=== PATIENT | female | born 1975 | race Caucasian/White ===

== ENCOUNTER 2019-05-21 12:26 | Outpatient (CLI) | payer MEDICARE, MEDICAID, SELFPAY ==
--- NOTE | 2019-05-21 12:41 | XR_ITS ---
WS: [id number] XR abdomen min 2V [id number] REASON FOR EXAM: VISUALIZE PD CATHETER FROM EXIT SITE/LLQ TO PELIVS/ESRD FINDINGS: A catheter is seen extending through the left kidney down through the ureter into the bladd er. There is nonspecific gas and fecal stasis in the colon. The bladder area shows phleboliths but no definite stones. XR/XR abdomen min 2V [id number] IMPRESSION: Catheter extends external through the kidney down to the bladder through the ur eter in good position.
== END 2019-05-21 12:27 | disposition home or self-care (01) ==
LOC: RAD 12:30
PROVIDERS: Family Provider Nurse Practitioner; PCP Family Medicine; Visit Provider Internal Medicine Nephrology
DX: Z99.2 Dependence on renal dialysis (principal); N18.6 End stage renal disease
CPT/HCPCS: 74019

== ENCOUNTER 2019-05-22 10:59 | Outpatient (CLI) | payer MEDICARE, MEDICAID, SELFPAY ==
--- NOTE | 2019-05-22 11:15 | XR_ITS ---
WS: [id number] XR KUB [id number] REASON FOR EXAM: VISUALIZE ABDOMEN TO PELVIS FOR PD CATHETER OBSTRUCTION/ESRD FINDINGS: PD catheter is seen extending from the left side the tubing is in the left kidney extends d own to the bladder area. XR/XR KUB 60095 IMPRESSION: PD catheter well placed.
== END 2019-05-22 11:00 | disposition home or self-care (01) ==
LOC: RAD 11:02
PROVIDERS: Family Provider Nurse Practitioner; PCP Family Medicine; Visit Provider Internal Medicine Nephrology
DX: T85.691A Other mechanical complication of intraperitoneal dialysis catheter, initial encounter (principal); Y83.8 Other surgical procedures as the cause of abnormal reaction of the patient, or of later complication, without mention of misadventure at the time of the procedure; N18.6 End stage renal disease; Z99.2 Dependence on renal dialysis
CPT/HCPCS: 74018

== ENCOUNTER 2019-08-24 14:16 | Outpatient (CLI) | payer MEDICARE, MEDICAID, SELFPAY ==
--- NOTE | 2019-08-24 14:33 | XR_ITS ---
WS: [id number] XR abdomen min 2V [id number] REASON FOR EXAM: CATH OBSTRUCTION SUBSEQUENT/ESRD/DEPENDENCE ON RENAL DIALYSI FINDINGS: KUB of the abdomen shows a renal dialysis catheter on the left side the alignment is satisf actory there is no dysfunction identified on the plain films. There is fecal stasis seen. There is no obstructive changes or free air. XR/XR abdomen min 2V [id number] IMPRESSION: Dialysis catheter on the left satisfactory position.
== END 2019-08-24 14:17 | disposition home or self-care (01) ==
LOC: RAD 14:19
PROVIDERS: Family Provider Nurse Practitioner; PCP Family Medicine; Visit Provider Internal Medicine Nephrology
DX: T85.691D Other mechanical complication of intraperitoneal dialysis catheter, subsequent encounter (principal); X58.XXXA Exposure to other specified factors, initial encounter
CPT/HCPCS: 74019

== ENCOUNTER → 2019-12-10 10:02 | Outpatient (BNVA) | payer MEDICARE, MEDICAID, SELFPAY | PROVIDERS: Family Provider Nurse Practitioner; PCP Family Medicine; Visit Provider Surgery | DX: Z20.828 Contact with and (suspected) exposure to other viral communicable diseases (principal) | CPT/HCPCS: 87635 ==

== ENCOUNTER 2019-12-13 07:15 | Day surgery (SDC) | payer MEDICARE, MEDICAID, SELFPAY ==
[2019-12-11 09:03] VITALS: BMI 21.8
[2019-12-13 07:38] VITALS: BP 123/86; PULSE 96; RESP 18; TEMP 36.2; O2SAT 100
--- NOTE | 2019-12-13 07:42 | ANES.PREANE2 ---
Pre-Anesthetic Assessment Pre-Anesthetic Assessment: Height/Weight: Height 1.75 m Weight 67.132 kg Temp Pulse Resp BP Pulse Ox 97.1 F L 96 18 123/86 100 12/13/19 07:38 12/13/19 07:38 12/13/19 07:38 12/13/19 07:38 12/13/19 07:38 Proposed Procedure: Operation Date: 12/13/19 08:00 Proposed Procedures p Colonoscopy(Not Applicable) - Fred Escoto MD Last Intake: 00:00 Social: Social History: Tobacco Packs per day: 5 cig/day Exam: Pre-Anes Outpt Exam: alert, oriented x 3, clear to auscultation bilaterally and regular rate & rhythm Airway: Submandibular: WNL Cervical ROM: WNL MP: 2 Dentition: False Additional comments: upper plate History/ROS: No significant history except as noted and No significant complaints Pulmonary: Pulmonary: None reported CV/HEM: CV/HEM: Anemia, DVT and HTN : : Chronic renal failure Hepatic: Hepatic: None reported GI: GI: None reported Metabolic: Metabolic: DM Musc/skel: Musc/skel: None reported Neuropsych: Neuropsych: Anxiety and Depression Anesthetic Plan: ASA status: 3 Anesthesia: Anesthesia Evaluation and MAC Risk of > 500 ml blood loss (7ml/kg in children): No PFSH Anesthesia PFSH: Medical History Diabetes mellitus End-stage renal disease Surgical History History of hip surgery History of hysterectomy Family History Other Cancer Diabetes Social History Smoking and tobacco status: current every day smoker Alcohol intake: never Household members: other Current occupational status: unemployed Data Anesthesia Cardiac Studies: No Data to Display
[2019-12-13 07:46] LABS: Glucose Point of Care 137 mg/dL (70-110)
[2019-12-13] MEDS: sodium chloride 0.9% 1,000 ML 30 ML IV (07:48)
--- NOTE | 2019-12-13 08:06 | W.PM.OPSUD ---
Surgery/Procedure H&P Update DATE OF PROCEDURE: December 13, 2019 DATE H&P PERFORMED: 11/20/19 H&P UPDATE INFORMATION: Changes to prior documentation as noted here (Nephrology had as to give the patient 1 g of Ancef prior to her procedure, but she gets a rash with cephalosporins. This will be changed to clindamycin.) PLANNED PROCEDURE: Operation Date: 12/13/19 08:00 Proposed Procedures p Colonoscopy(Not Applicable) - Fred Escoto MD
[2019-12-13] MEDS: clindamycin 900 MG/50 ML PREMIX 100 MG IV (08:13)
[2019-12-13 08:49] VITALS: BP 117/74; PULSE 80; RESP 16; TEMP 36.3; O2SAT 97
[2019-12-13 08:59] VITALS: BP 108/72; PULSE 85; RESP 18; TEMP 36.1; O2SAT 97
--- NOTE | 2019-12-13 09:25 | ANE.PACU2 ---
Inpatient post-anesthesia follow up: Airway intact: Yes Vital signs: Temperature 97.0 F Pulse Rate 85 Respiratory Rate 18 Blood Pressure 108/72 Pulse Oximetry 97 Oxygen Delivery Me thod Room Air Oxygen Flow Rate Fraction of Inspir ed Oxygen Hydration adequate: Yes Nausea and vomiting: No Pain level: 1 Mental status: Baseline
== END 2019-12-13 09:30 | disposition home or self-care (01) ==
PROVIDERS: PCP Family Medicine; Visit Provider Surgery
PROC: 0DJD8ZZ Inspection of Lower Intestinal Tract, Via Natural or Artificial Opening Endoscopic (ICD-10-PCS; CPT 45378; principal; 2019-12-13 08:00)
DX: K92.1 Melena (principal); K59.09 Other constipation; K63.5 Polyp of colon; K62.89 Other specified diseases of anus and rectum; F17.210 Nicotine dependence, cigarettes, uncomplicated; Z86.718 Personal history of other venous thrombosis and embolism; F41.9 Anxiety disorder, unspecified; F32.9 Major depressive disorder, single episode, unspecified; E11.9 Type 2 diabetes mellitus without complications; I10 Essential (primary) hypertension; Z79.01 Long term (current) use of anticoagulants; Z79.4 Long term (current) use of insulin
CPT/HCPCS: 12345; 36416; 45385; 82962; 88305; J2704; J3490; J7030

== ENCOUNTER 2020-01-02 08:08 | Outpatient (CLI) | payer MEDICARE, MEDICAID, SELFPAY ==
--- NOTE | 2020-01-02 13:44 | ONC CON_ITS ---
Dr. Damico New Patient Note Patient: Bharati Anthony Unit #: [id number]: 1975 Dicatated By: Cyndy Damico M.D.Date of Visit: Jan 02, 2020 Onc MED New Patient/Consult Referring Physician: Dr. Fred Escoto M.D. History of Present Illness: Ms. Bharati Anthony, is a 44-year-old female with end-stage renal disease on peritoneal dialysis, start noticing blood in her stool around May or June 2019, initially blood was mixed with stool but then recently, noticed large amount of fresh blood per rectum she was referred to Dr. Escoto for evaluation and patient underwent colonoscopy on December 13, 2019 which showed none obstructing, small size, infiltrating, malignant appearing mass adjacent to some more polypoid appearing areas was seen just inside the anal verge. There was stigmata of bleeding from the mass. Multiple biopsies were obtained and final pathology report came back well-differentiated, nonkeratinizing invasive squamous cell carcinoma, p16 positive Patient denies any pelvic pain, denies any jaundice, denies any hemoptysis or hematemesis, patient has history of off-and-on constipation, thought it was due to peritoneal dialysis. Which was started in May 2019 for progressive renal insufficiency. Patient still makes urine. Denies any weight loss, but generalized weakness and and she has history of iron deficiency, which was multifactorial including due to renal failure, as per patient in hemodialysis clinic she used to get IV iron. Patient has history of anal intercourse, but as per patient it was for a brief period. Never been tested for HIV. Smoke about a pack a day since age 14. Denies alcohol use Past Medical History: Ms. Anthony's medical history consists of anemia, anxiety, depression, history of MRSA, hypertension, left lower extremity dvt, renal failure-daily peritoneal dialysis, and type II diabetes. Past Surgical History: Ms. Anthony's surgical/procedural history consists of hysterectomy/bilateral salpingectomy-oophorectomy, peritoneal dialysis catheter placement, portacth placement, tubal ligation, and right hip surgery in 2019. Medications: Acetaminophen 1 - 2 Tablet (of 500 mg) Oral PRN, CeleXA 1 Tablet (of 40 mg) Tablet Oral daily, Colace 1 Capsule (of 100 mg) Oral b.i.d. PRN, Eliquis 1 Tablet (of 2.5 mg) Oral b.i.d., Furosemide 1 Tablet (of 80 mg) Oral daily, HumaLOG 5 Units (of 100 Units/mL) Subcutaneous b.i.d. PRN, Januvia 1 Tablet (of 100 mg) Oral daily, Klor-Con M20 1 (20 meq) Tablet, controlled release Oral daily, Metoprolol Tartrate 1 Tablet (of 100 mg) Oral daily, Ozempic (1 MG/DOSE) 1 mg Subcutaneous q 7 days, Pantoprazole Sodium 1 Tablet (of 40 mg) Tablet, enteric coated Oral b.i.d., RenaPlex-D 1 Tablet Oral daily, Senno 1 - 2 Tablet (of 8.6 mg) Oral daily PRN Allergies: adhesives and Latex. Social History: Ms. Anthony is single. She is a daily smoker who smokes 1.0 pack/day. Family History: There is no documented family history. Review Of Symptoms: Review of Systems is not available for this patient. Vital Signs: Performed on Jan 02, 2020 09:02: 69.00 in, 151.2 lbs, 97.9 F, 100, 18, 129/80 mm(hg), 99 %, 1, and Performed on Jan 02, 2020 09:02: 22.328 kg/m2. Performance Status: 0 - Fully active, able to carry on all predisease activities without restrictions. (ECOG) Physical Examination: ENMT - No mouth sores, no thrush, no jaundice, Respiratory - Lungs are clear to auscultation, Cardiovascular - Regular rate and rhythm of heart, Abdomen - Soft, bowel sounds present, peritoneal dialysis site clear, Extremities - No visible edema. Lab/Imaging: Most recent lab results are not available for this patient. Impression: Well-differentiated, nonkeratinizing invasive squamous cell carcinoma, p16 positive, per colonoscopy done on December 13, 2019 which showed infiltrating, small size, nonobstructive malignant appearing mass adjacent to some more polypoid appearing areas was seen just inside the anal verge. Renal failure, on peritoneal dialysis since May 2019, Chronic smoking History of anemia, multifactorial Diabetes mellitus History of DVT left lower extremity. Hypertension Plan: Discussed with patient regarding her disease status, and treatment options patient has already seen radiation oncology and staging work-up including CT scan of chest abdomen and MRI scan of the pelvis has been ordered by radiation oncology. Because of possible sphincter involvement, patient is not a candidate for surgery so combined chemoradiation is under consideration for newly diagnosed anal cancer. But concern is her renal failure and chemotherapy pharmacokinetics in patient on peritoneal dialysis. As cure is intent in chemoradiation sensitive anal cell carcinoma, dose adjustment can interfere with response rate, at the same time standard dose of chemotherapy can cause life-threatening toxicity. Discussed with patient regarding this dilemma and concerns, patient understand, will discuss her case with Dr. Mann her grocery store courtesy clerk and also requested pharmacist to do research on Xeloda and mitomycin in end-stage renal disease or Xeloda and cisplatin and end-stage renal disease.. Patient will return to clinic Tuesday week with CBC CMP and for further discussion in the meantime she would have staging work-up completed as ordered by radiation oncology. And as patient said she has history of anal intercourse, will consider HIV testing too. Patient was advised to quit smoking and was offered any assistance she may need. Signed By: Cyndy Damico M.D. <<Signature on File>>
--- NOTE | 2020-01-03 13:15 | N.ONRAD NP_ITS ---
Radiation Oncology New Patient Visit Patient: Bharati Anthony MR#: [id number] : 1975> Age: 44> Sex: Female> Dictated by: Dr. Georges Castanon Date of Service: 01/02/2020 Referring Physician(s) : Dr. 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 History of Present Illness: The patient is a 44-year-old female with end-stage renal disease on peritoneal dialysis with a prior history of anal intercourse. She presented with a 6-month history of blood in her stool and she was subsequently referred for colonoscopy. On 12/13/2019 Dr. Escoto performed a digital rectal examination prior to colonoscopy with findings which revealed a semifirm mass felt in the left anterior posterior position. During colonoscopy, there was a 4 mm sessile polyp in the cecum and within the ???rectum??? there was a nonobstructing, small size, infiltrative, malignant appearing mass adjacent to some more polypoid appearing areas was seen just inside the anal verge. There was stigmata of bleeding from the mass. Multiple biopsies were performed.??? Pathology from this revealed a well differentiated nonkeratinizing invasive squamous cell carcinoma, p16 positive from the excisional biopsy of the anal rectal mass. The polyp in the cecum revealed tubular adenoma. In consultation today, digital rectal and pelvic examination revealed a normal rectal tone, a palpable 3 cm firm exophytic but mobile mass in the 2 to 6 o'clock position in the anal canal, approximately 1.5 cm proximal to the anal verge. There was no irregularity noted around the anal verge, or anal margin. Palpable mass-effect on the posterior vaginal wall was appreciated but there was no visualized mucosal irregularity within the vaginal vault. There was no inguinal adenopathy. In consultation today, the patient reports persistent rectal bleeding, no dyspareunia, no abdominal pain, no shortness of breath, no pruritus, and no barrett colored stools. Imaging Review: I reviewed the radiographic images discussed above. Current Medications: Acetaminophen, celeXA, colace, eliquis, furosemide, humaLOG, januvia, klor-Con M20, metoprolol Tartrate, ozempic (1 MG/DOSE), pantoprazole Sodium, renaPlex-D, senno. Allergies: Latex, adhesives and Cephalosporins. Medical History: - Anemia, - anxiety, - depression, - history of MRSA, - hypertension, - left lower extremity dvt, - renal failure-daily peritoneal dialysis, - stroke in 03/2017, - type II diabetes. No history of collagen vascular disease. No previous radiation therapy. Surgical History: Colonoscopy in 11/2019, hysterectomy/bilateral salpingectomy-oophorectomy, peritoneal dialysis catheter placement, portacth placement, right hip surgery in 05/2019 and tubal ligation. Family History: Father is alive having experienced heart attack. Mother's alive status is unknown. Maternal Grandfather is having experienced Bladder Cancer. Social History: Last screened on 01/02/2020 - Current every day smoker 1.0 pack/day for 25 years (25 pack years). Current Complaints / Review of Systems: Constitutional - Complains of lack of appetite. Complains of mild fatigue. Denies fever, night sweats and change in weight. Eyes - Denies blurred vision and double vision. ENMT - Denies dysphagia, ear pain, mouth dryness, stomatitis, altered taste and tinnitus. Neck - Denies neck pain and decreased range of motion. Integumentary - Denies rash. Breasts - Denies pain. Cardiovascular - Denies arrhythmias, chest pain and edema. Respiratory - Denies cough, dyspnea, hemoptysis and wheezing. Gastrointestinal - Complains of mild melena / GI bleeding occurring with each BM. Denies abdominal pain, constipation, diarrhea, nausea, pain / cramping and vomiting. Genitourinary (F) - Complains of nocturia occasionally gets up about 1 time per night. Denies dysuria, frequency, urgency, vaginal discharge / bleeding and vaginal spotting. Musculoskeletal - Complains of joint pain right hip. Denies bone pain and muscle weakness. Neurologic - Complains of intermittent dizziness. Complains of headaches occasionally. Denies abnormal gait. Endocrine - Complains of Type 2 diabetes. Denies thyroid disease. Hematologic/Lymphatic - Denies tender or enlarged lymph nodes.. Vital Signs: Performed on 01/02/2020 9:02 AM BMI - 22.328 kg/m2, Height - 69.00 in, Weight - 151.2 lbs, Temperature - 97.9 f, Pulse - 100, Respiration - 18, O2 Sat - 99 %, Pain - 1 and BP - 129/ 80 mm(hg). Physical Exam: GENERAL:??? The patient is alert, and in no acute distress. HEENT:??? Head is normocephalic. Face is symmetric. External ocular movements are intact. Sclera and conjunctivae are non erythematous. NECK:??? Trachea is midline.??? Thyroid is not enlarged by palpation.??? LYMPH NODES:???There was no inguinal adenopathy bilaterally. GAB/Pelvic: See HPI. LUNGS:??? Clear to auscultation bilaterally. Respiratory movement is unlabored. HEART:??? Regular rate and rhythm. EXTREMITIES:??? No deformities. NEUROLOGIC:??? Gait and station are normal.??? The patient is well coordinated and strength is equal bilaterally. VENDING MACHINE REPAIRER:??? Cranial nerves II-XII are intact and without focal deficits.??? Psych: Affect is normal. Skin: Cursory review of the skin reveals no obvious lesions concerning for malignancy. Performance Status: 0 - Fully active, able to carry on all predisease activities without restrictions. (ECOG) Pathology: Primary, c21.1 - malignant neoplasm of anal canal, Diagnosed 01/02/2020 (active). 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 HIV testing is pending. I have ordered a CT of the chest and abdomen, and MRI of the pelvis to complete work-up and staging. This patient will require hemodialysis after these studies, preferably within 24 hours upon completion of the study to mitigate risks of gadolinium deposition in the brain. I have discussed this case with Dr. Damico who notes potential treatment complications with mitomycin-C/Xeloda concurrent with radiation therapy due to her end-stage renal disease on chronic peritoneal dialysis. Cisplatin/5-FU may be an appropriate chemotherapy alternative, per Dr. Damico. Dr. Damico is in the process of consulting with a earthmoving labourer to assist in scheduling hemodialysis vs continued peritoneal dialysis. We discussed treatment logistics, and potential side effects in great detail. The patient agreed to proceed with work-up and concurrent chemoradiation therapy as ultimately recommended after completing work-up and staging. It is also worthwhile to consider a surgical consult for surveillance purposes and salvage options in the future, if salvage is ultimately needed. Follow-up with radiation oncology next week after completing the requested work-up and subsequent hemodialysis. Signed by: 01/03/2020 1:14:34 PM <<Signature on File>> Time spent with patient: CPT Code: CPT Code:
== END 2020-01-02 08:09 | disposition home or self-care (01) ==
LOC: ONCMED 08:12
PROVIDERS: Absent Provider Radiology Radiation Oncology; PCP Family Medicine; Visit Provider Internal Medicine Hematology & Oncology
DX: C21.1 Malignant neoplasm of anal canal (principal); I12.0 Hypertensive chronic kidney disease with stage 5 chronic kidney disease or end stage renal disease; E11.22 Type 2 diabetes mellitus with diabetic chronic kidney disease; N18.6 End stage renal disease; F17.210 Nicotine dependence, cigarettes, uncomplicated; Z99.2 Dependence on renal dialysis; Z79.4 Long term (current) use of insulin; Z86.718 Personal history of other venous thrombosis and embolism; Z79.01 Long term (current) use of anticoagulants
CPT/HCPCS: 99205; G0463

== ENCOUNTER → 2020-01-04 15:51 | Outpatient (BNVA) | payer MEDICARE, MEDICAID, SELFPAY | PROVIDERS: PCP Family Medicine; Visit Provider Surgery | DX: Z11.59 Encounter for screening for other viral diseases (principal) | CPT/HCPCS: 87635 ==

== ENCOUNTER 2020-01-09 08:01 | Day surgery (SDC) | payer MEDICARE, MEDICAID, SELFPAY ==
[2020-01-08 11:06] VITALS: BMI 22.3
--- NOTE | 2020-01-09 | SCC_ITS ---
Procedure Done: Placement of 21 cm long 16 Albanian AshSplit catheter in the right internal jugular vein 70.4 seconds of fluoroscopic guidance, for a cumulative dose of 2.78 mGy, was provided to Dr. Guadarrama by the radiology department. C-arm images of the chest were saved for the patient's permanent record. [facility]
[2020-01-09 08:13] VITALS: BP 130/80; PULSE 93; RESP 18; TEMP 36.2; O2SAT 99
--- NOTE | 2020-01-09 08:37 | W.PM.OPSUD ---
Surgery/Procedure H&P Update DATE OF PROCEDURE: January 09, 2020 DATE H&P PERFORMED: 01/04/20 H&P UPDATE INFORMATION: I have reviewed H&P completed within last 30 days, I have examined patient prior to procedure and No changes to prior documentation PREOP DIAGNOSIS: Chronic renal failure requiring hemodialysis PLANNED PROCEDURE: Operation Date: 01/09/20 09:40 Proposed Procedures p insertion of tunneled hemodialysis catheter 89608 N18.6(Not Applicable) - Edwin Guadarrama MD
[2020-01-09 08:44] LABS: Glucose Point of Care 109 mg/dL (70-110)
[2020-01-09] MEDS: vancomycin 1,000 MG in sodium chloride 0.9% 250 ML 250 MG IV (08:46)
[2020-01-09] MEDS: sodium chloride 0.9% 1,000 ML 30 ML IV (08:46)
--- NOTE | 2020-01-09 09:03 | ANES.PREANE2 ---
Pre-Anesthetic Assessment Pre-Anesthetic Assessment: Height/Weight: Height 1.75 m Weight 68.492 kg Temp Pulse Resp BP Pulse Ox 97.2 F L 93 18 130/80 99 01/09/20 08:13 01/09/20 08:13 01/09/20 08:13 01/09/20 08:13 01/09/20 08:13 Preop Diagnosis: Chronic renal failure requiring hemodialysis Proposed Procedure: Operation Date: 01/09/20 09:40 Proposed Procedures p insertion of tunneled hemodialysis catheter 83667 N18.6(Not Applicable) - Edwin Guadarrama MD Familial anesthetic complications: None Was Beta Ritchie taken within 24 hours: Yes Last intake: Intake Last Liquid Date 01/08/20 Last Liquid Time 23:59 Last Solid Date 01/08/20 Last Solid Time 23:59 Social: Social History: Tobacco Exam: Pre-Anes Outpt Exam: alert, oriented x 3, clear to auscultation bilaterally and regular rate & rhythm Airway: Cervical ROM: WNL MP: 2 Dentition: False and Other (upper plate) CV/HEM: CV/HEM: Anemia, DVT and HTN : : Chronic renal failure Metabolic: Metabolic: DM Anesthetic Plan: ASA status: 3 Anesthesia: MAC Risk of > 500 ml blood loss (7ml/kg in children): No Meds/Allergies Current Medications: Current Medications Generic Name Dose Route Start Last Admin Trade Name Freq PRN Reason Stop Dose Admin Sodium Chloride 1,000 mls @ 30 ml s/hr 01/09/20 08:00 01/09/20 08:46 Sodium Chloride 0.9% IV 01/10/20 07:59 30 mls/hr .Q24H BRETT Administration PFSH Anesthesia PFSH: Medical History (Updated 01/09/20 @ 08:36 by Edwin Guadarrama MD) Chronic anticoagulation Deep vein thrombosis (DVT) during Diabetes mellitus End-stage renal disease Squamous cell carcinoma of anal canal Surgical History (Updated 01/09/20 @ 08:36 by Edwin Guadarrama MD) H/O colonoscopy H/O hand surgery History of hip surgery History of hysterectomy Peritoneal dialysis status Port-A-Cath in place S/P hemodialysis catheter insertion (01/09/20) Family History Other Cancer Diabetes Denies family history of Anesthesia complication Bleeding disorder Social History Smoking and tobacco status: current every day smoker Alcohol intake: never Household members: family Marital status: Single Current occupational status: disabled History of recent travel: No Data Anesthesia Other Labs: Laboratory Results - last 48 hr 01/09/20 08:42 POC Glucose 109 Cardiac Studies: No Data to Display
--- NOTE | 2020-01-09 09:36 | SC_ITS ---
WS: [id number] C-arm fluoroscopy of the right chest for dialysis catheter placement, 01/09/2020 Clinical Data: Placement of 21 cm long 16 Portuguese AshSplit catheter in the r Comparison: Portable chest, 08/08/2018. Findings: The large bore right dialysis catheter has been inserted. It ends in the superior vena cava. There is a left Port-A-Cath also in position. SC/C-arm [place] for CVA [id number] Impression: Satisfactory placement of right dialysis catheter.
[2020-01-09] MEDS: heparin, porcine 1,000 unit/mL INJ 10 mL 10000 UNIT INJECTION (10:15)
[2020-01-09] MEDS: lidocaine 1% INJ 20 mL IM (10:25)
--- NOTE | 2020-01-09 10:38 | PM.OP ---
Operative Report Date of procedure: January 09, 2020 Pre-op Diagnosis: Chronic renal failure requiring hemodialysis Post-op diagnosis: same Procedure Done: Placement of 21 cm long 16 Persian AshSplit catheter in the right internal jugular vein Fluoroscopic guidance and interpretation for placement of catheter Ultrasound guidance to access the right internal jugular vein Pathology: none sent Surgeon: Edwni Guadarrama Anesthesia: MAC Condition: stable Disposition: PACU Procedure: The patient was taken to the operating room and placed under MAC after IV antibiotic had been administered. The chest and neck were prepped and draped in a sterile manner bilaterally. An ultrasound of the right internal jugular vein revealed patent flow, no thrombus identified. Using introducer needle the internal jugular vein on the right side was accessed and guidewire passed into the right atrium under fluoroscopy. Under fluoroscopy the location for the dialysis catheter was marked. Using 11 blade a skin incision was extended at the vein access site as well as the previously marked location on the right chest wall. The dialysis catheter was attached to the tunneler and passed subcutaneously, exiting at the venous access site. Serial dilators were passed over the guidewire under fluoroscopy. Finally the dilator peel-away sheath was passed over the guidewire and the inner dilator and guidewire was removed and the dialysis catheter was introduced into the right internal jugular vein as the peel-away sheath was removed. The tip of the catheter was noted to be in the right atrium. Both ports of the catheter giuseppe blood and flushed easily. The catheter was sutured to the skin using 2-0 Prolene and the venous access site was closed with 4-0 Monocryl and Dermabond. A total of 5 mL of 1:10,000 heparin was injected into the 2 ports under dialysis catheter. Fluoroscopic guidance and interpretation for passage of guidewire and dilator and placement of catheter in the right atrium.
[2020-01-09 11:04] VITALS: BP 130/83; PULSE 92; RESP 18; TEMP 36.2; O2SAT 96
--- NOTE | 2020-01-09 11:35 | ANE.PACU2 ---
Inpatient post-anesthesia follow up: Airway intact: Yes Vital signs: Temperature 97.1 F Pulse Rate 92 Respiratory Rate 18 Blood Pressure 130/83 Pulse Oximetry 96 Oxygen Delivery Me thod Room Air Oxygen Flow Rate Fraction of Inspir ed Oxygen Hydration adequate: Yes Nausea and vomiting: No Pain level: 1 Mental status: Baseline
== END 2020-01-09 11:35 | disposition home or self-care (01) ==
PROVIDERS: PCP Family Medicine; Visit Provider Surgery
PROC: (CPT 36558; principal; 2020-01-09 09:40)
DX: N18.6 End stage renal disease (principal); Z86.718 Personal history of other venous thrombosis and embolism; I10 Essential (primary) hypertension; E11.22 Type 2 diabetes mellitus with diabetic chronic kidney disease; C21.1 Malignant neoplasm of anal canal; Z79.01 Long term (current) use of anticoagulants
CPT/HCPCS: 36558; 12345; 36416; 76000; 77001; 82962; 96365; C1750; J1644; J2250; J2704; J3010; J3370; J3490; J7030; J7050; T1015-U1

== ENCOUNTER 2020-01-11 07:52 | Outpatient (CLI) | payer MEDICARE, MEDICAID, SELFPAY ==
--- NOTE | 2020-01-11 07:59 | CT_ITS ---
WS: [id number] CT scan of the chest With IV contrast, CT scan of the abdomen and pelvis with IV contrast and with oral contrast. Additional two-dimensional coronal and sagittal reconstruction was performed. 01/11/20 Clinical Data: STAGING RECTAL CANCER Comparison: CT abdomen pelvis, 03/31/2017. DLP: 2222.[address] scans at [facility] use at least one of these dose optimization techniques: automat ed exposure control; mA and/or kV adjustment per patient size (includes targeted exams where dose is matched to clinical indication); or iterative reconstruction. Findings: Chest: No nodules, masses or effusions are seen. There is a left Port-A-Cath. The heart size is normal with no pericardial effusion. The pulmonary arterial system and thoracic aorta demonstrate no abnormalities or dilatations. There is no axillary or significant mediastinal adenopathy. Trachea bifurcates normally into the bron chi. No pneumonia or pneumothorax is present. The bony thorax demonstrates no metastatic lesions. Abdomen/pelvis: The lower lungs show no nodules, masses or effusions. The liver, gallbladder, spleen, adrenal glands and pancreas are normal. The spleen shows no residual low-density lesions from the prior study. The kidneys show equal bilateral contrast excretion with no cysts or masses. No hydronephrosis or dari al calculi are noted. The abdominal aorta is normal in size. No appendicitis or diverticulitis is seen. Oral contrast is in the stomach and small bowel and there is no bowel dilatation. No abscess, adenopathy, ascites, mass, obstruction or free air is seen. There is a peritoneal dialysis catheter ending in the pelvis. The bladder is unremarkable. The uterus is absent. No inguinal hernia is seen. There is sclerotic change throughout the right sacrum which may be a result of previous radiation amador atment or metastatic disease. There is a right hip arthroplasty. There is a grade 1 L5-S1 spondylolis thesis with bilateral spondylolysis. CT/CT chest abd pel w con* Impression: 1. Clearing of previously noted splenic infarcts and no evidence of a right dari al mass. 2. Clearing of anasarca. 3. Sclerosis of the right sacrum which may be from radiation treatment or metas tatic disease. 4. L5-S1 spondylolysis with spondylolisthesis unchanged.
[2020-01-11] MEDS: iodixanol 320 mg/mL 100mL Btl IV (09:56)
[2020-01-11] MEDS: iohexol 300 mg/mL 50 mL Btl PO (09:56)
== END 2020-01-11 07:53 | disposition home or self-care (01) ==
LOC: RADWPI 07:55
PROVIDERS: PCP Family Medicine; Visit Provider Radiology Radiation Oncology
DX: C21.1 Malignant neoplasm of anal canal (principal); M43.07 Spondylolysis, lumbosacral region
CPT/HCPCS: 71260; 74177; Q9967

== ENCOUNTER 2020-01-14 07:40 | Outpatient (CLI) | payer MEDICARE, MEDICAID, SELFPAY ==
--- NOTE | 2020-01-14 08:13 | MR_ITS ---
WS: [id number] INDICATION: Rectal mass TECHNIQUE: MRI the pelvis without and with gadolinium enhancement. Axial T1, T2, coronal T1, coronal STIR, coronal T2 fat sat, sagittal T2 fat sat, and post gadolinium imaging was obtained. COMPARISON: CT chest abdomen pelvis January 11, 2020 FINDINGS: Sclerotic lesions of the right sacrum and right sacral ala better evaluated on the recent C T.Minimal associated enhancement involving the right sacral ala. Enhancing circumferential thickening involving the rectum eccentric to the left compatible with histo ry of rectal neoplasm. Thickness measures approximately 2.2 x 1.2 x 4.5 CM AP by transverse by cranio caudal. Enhancing left presacral lymph node adjacent to the sigmoid colon measures 14 mm. Additional smaller adjacent lymph nodes measuring 4- 5 mm. No inguinal lymphadenopathy. No pelvic sidewall lymph adenopathy. Normal visualized sigmoid colon. Right KRISTYN degrades some images in the pelvis due to susceptibility a rtifact. Grade 1-2 anterolisthesis L5 on S1 with bilateral spondylolysis. MR/MR pelvis wo/w con [id number] IMPRESSION: 1. Diffuse circumferential soft tissue thickening eccentric to the left involv ing the rectum consistent with known rectal neoplasm. This measures approximate ly 2.2 x 1.2 x 4.5 CM 2. Presacral metastatic enhancing lymph nodes the largest measuring 14 mm. Adj acent smaller satellite nodules in the presacral space. 3. No pelvic or inguinal lymphadenopathy. 4. Normal sigmoid colon. 5. Right KRISTYN degrades some images in the pelvis. 6. Sclerotic suspected metastatic lesion in the midline sacrum and right sacra l ala better evaluated on the recent CT.
== END 2020-01-14 07:41 | disposition home or self-care (01) ==
LOC: RADWPI 07:43
PROVIDERS: PCP Family Medicine; Visit Provider Radiology Radiation Oncology
DX: C21.1 Malignant neoplasm of anal canal (principal); Z96.641 Presence of right artificial hip joint
CPT/HCPCS: 72197; A9579

== ENCOUNTER 2020-01-18 05:49 | Outpatient (CLI) | payer MEDICARE, MEDICAID, SELFPAY ==
[2020-01-18 09:20] LABS: Basophils # 0.1 10^3/uL (0.0-0.1); Basophils % 0.7 %; Eosinophils # 0.5 10^3/uL (0.0-0.8); Eosinophils % 4.8 %; Hematocrit 30.9 % (37.0-47.0); Hemoglobin 10.3 g/dL (11.5-15.3); Lymphocytes # 3.9 10^3/uL (0.8-4.8); Lymphocytes % 36.7 %; Mean Corpuscular HGB Conc 33.3 g/dL (30.0-36.0); Mean Corpuscular Hemoglobin 32.5 pg (28.0-34.0); Mean Corpuscular Volume 97.5 fL (81-99); Mean Platelet Volume 9.5 fL (7.4-10.4); Monocytes # 0.5 10^3/uL (0.2-0.9); Monocytes % 4.9 %; Neutrophils # 5.61 10^3/uL (1.8-7.7); Neutrophils % 52.4 %; Nucleated Red Blood Cells % 0 %; Platelet Count 231 10^3/cmm (130-400); Red Blood Count 3.17 10^6/uL (4.1-5.3); Red Cell Distribution Width 14.4 % (12.1-15.1); White Blood Count 10.7 10^3/uL (4.0-10.0)
[2020-01-18 09:46] LABS: Alanine Aminotransferase 16 U/L (0-33); Albumin Level 4.4 g/dL (3.5-5.2); Alkaline Phosphatase 77 IU/L (35-105); Anion Gap 14.1 (5-19); Aspartate Amino Transferase 16 U/L (0-32); Blood Urea Nitrogen 29 mg/dL (6-20); Calcium 9.7 mg/dL (8.5-10.5); Carbon Dioxide 27 mmol/L (22-29); Chloride 100 mmol/L (98-107); Globulin 2.5 g/dL (1.3-4.6); Glomerular Filtration Rate 14.6 mL/min (90-130); Glucose 110 mg/dL (65-115); Osmolality Calculated 290 mOsm/kg (285-295); Potassium 4.1 mmol/L (3.5-5.1); Sodium 137 mmol/L (136-145); Total Bilirubin 0.2 mg/dL (0.15-1.2); Total Protein 6.9 g/dL (6.6-8.7)
[2020-01-18 10:06] LABS: Hepatitis A Antibody IgM Non-Reactive (Nonreactive); Hepatitis B Core AB, Total Non-Reactive (Nonreactive); Hepatitis B Surface AB 64.3 (0-8.5); Hepatitis B Surface Antigen Non-Reactive (Nonreactive); Hepatitis C Virus Antibody Non-Reactive (Nonreactive)
--- NOTE | 2020-01-18 12:22 | ONC FU_ITS ---
Dr. Damico follow up note Patient: Bharati Anthony Unit #: [id number]: 1975 Dicatated By: Cyndy Damico M.D.Date of Visit:Jan 18, 2020 Onc Med Follow-up/Prog Note History of Present Illness: Ms. Bharati Anthony, is a 44-year-old female with end-stage renal disease on peritoneal dialysis, start noticing blood in her stool around May or June 2019, initially blood was mixed with stool but then recently, noticed large amount of fresh blood per rectum she was referred to Dr. Escoto for evaluation and patient underwent colonoscopy on December 13, 2019 which showed none obstructing, small size, infiltrating, malignant appearing mass adjacent to some more polypoid appearing areas was seen just inside the anal verge. There was stigmata of bleeding from the mass. Multiple biopsies were obtained and final pathology report came back well-differentiated, nonkeratinizing invasive squamous cell carcinoma, p16 positive Patient denies any pelvic pain, denies any jaundice, denies any hemoptysis or hematemesis, patient has history of off-and-on constipation, thought it was due to peritoneal dialysis. Which was started in May 2019 for progressive renal insufficiency. Patient still makes urine. Denies any weight loss, but generalized weakness and and she has history of iron deficiency, which was multifactorial including due to renal failure, as per patient in hemodialysis clinic she used to get IV iron. Patient has history of anal intercourse, but as per patient it was for a brief period. Never been tested for HIV. Smoke about a pack a day since age 14. Denies alcohol use Came for follow-up, denies any specific complaints, no fever chills, no nausea or vomiting, no diarrhea constipation, patient has seen radiation oncology and CT scan of pelvis was done on January 11, 2020 as a part of simulation which showed sclerosis of right sacrum, radiation had a concern about that so CT PET scan was ordered which is due on January 25, 2020. Since our last visit patient is also switched to hemodialysis from peritoneal dialysis, which was started last week, tolerating well. Medications: Acetaminophen 1 - 2 Tablet (of 500 mg) Oral PRN, CeleXA 1 Tablet (of 40 mg) Tablet Oral daily, Colace 1 Capsule (of 100 mg) Oral b.i.d. PRN, Eliquis 1 Tablet (of 2.5 mg) Oral b.i.d., Furosemide 1 Tablet (of 80 mg) Oral daily, HumaLOG 5 Units (of 100 Units/mL) Subcutaneous b.i.d. PRN, Januvia 1 Tablet (of 100 mg) Oral daily, Klor-Con M20 1 (20 meq) Tablet, controlled release Oral daily, Metoprolol Tartrate 1 Tablet (of 100 mg) Oral daily, Ozempic (1 MG/DOSE) 1 mg Subcutaneous q 7 days, Pantoprazole Sodium 1 Tablet (of 40 mg) Tablet, enteric coated Oral b.i.d., RenaPlex-D 1 Tablet Oral daily, Senno 1 - 2 Tablet (of 8.6 mg) Oral daily PRN Allergies: adhesives, Cephalosporins, and Latex. Review of Systems: Review of Systems is not available for this patient. Vital Signs: Performed on Jan 18, 2020 09:00 Height - 69.00 in Weight - 151.0 lbs (LOW) BSA - 1.83 sq.m BMI - 22.30 Temperature - 98.0 F (LOW) Pulse - 102 /min (HIGH) Respiration - 16 /min BP - 139/83 mm(hg) O2 Sat - 99 % Pain - 2 Performance Status: 0 - Fully active, able to carry on all predisease activities without restrictions. (ECOG) Physical Examination: ENMT - No mouth sores, no thrush, no jaundice, Respiratory - Lungs are clear to auscultation, Cardiovascular - Regular rate and rhythm of heart, Abdomen - Soft, bowel sounds present, Extremities - No visible edema. Lab/Imaging: Most recent lab results are not available for this patient. Impression: Well-differentiated, nonkeratinizing invasive squamous cell carcinoma, p16 positive, per colonoscopy done on December 13, 2019 which showed infiltrating, small size, nonobstructive malignant appearing mass adjacent to some more polypoid appearing areas was seen just inside the anal verge. Renal failure, on peritoneal dialysis since May 2019, Chronic smoking History of anemia, multifactorial Diabetes mellitus History of DVT left lower extremity. Hypertension Plan: Discussed with patient regarding her labs white blood count 10.7 hemoglobin 10.3 hematocrit 30.9 platelets 231,000 CMP within normal limits except creatinine 3.4, patient is on hemodialysis since last week Clinically, patient doing reasonably well with no new signs symptoms, she was recently switched to hemodialysis from peritoneal dialysis, tolerating well. Patient was seen by radiation oncology and CT scan of chest abdomen pelvis was ordered by radiation oncology which showed sclerosis of right sacrum, questionable metastatic disease, radiation oncology has ordered CT PET scan to assess disease status which is scheduled for January 25, 2020. And if it looks unremarkable then combined chemoradiation is the plan but concern is her renal failure and she is on hemodialysis and both mitomycin and 5-FU/Xeloda is contraindicated in renal failure, case was discussed with pharmacy and there is no information available., We will discuss with GI oncology at [place] regarding chemotherapy regimen concurrent with radiation in patient with renal failure on hemodialysis. Patient return to clinic after CT PET scan for further discussion. Signed By: Cyndy Damico M.D. <<Signature on File>>
== END 2020-01-18 05:50 | disposition home or self-care (01) ==
LOC: ONCMED 05:51
PROVIDERS: PCP Family Medicine; Visit Provider Internal Medicine Hematology & Oncology
DX: C21.1 Malignant neoplasm of anal canal (principal); R93.7 Abnormal findings on diagnostic imaging of other parts of musculoskeletal system; I12.0 Hypertensive chronic kidney disease with stage 5 chronic kidney disease or end stage renal disease; N18.6 End stage renal disease; F17.210 Nicotine dependence, cigarettes, uncomplicated; Z11.59 Encounter for screening for other viral diseases; Z99.2 Dependence on renal dialysis; Z86.718 Personal history of other venous thrombosis and embolism; Z79.01 Long term (current) use of anticoagulants
CPT/HCPCS: 36591; 80053; 85025; 86705; 86706; 86709; 86803; 87340; 99214

== ENCOUNTER 2020-02-18 11:31 | Outpatient (RCR) | payer MEDICARE, MEDICAID, SELFPAY ==
--- NOTE | 2020-02-18 | CT_ITS ---
Radiation Therapy Planning CT images; total exam DLP: 1604.85 mGy-cm MTDD
[2020-02-18] MEDS: iodixanol 320 mg/mL 100mL Btl (RAD THERAPY ONLY) IV (11:51)
== END 2020-02-18 23:59 | disposition home or self-care (01) ==
LOC: ONCMED 11:31
PROVIDERS: PCP Family Medicine; Visit Provider Radiology Radiation Oncology
DX: Z51.0 Encounter for antineoplastic radiation therapy (principal); C21.1 Malignant neoplasm of anal canal
CPT/HCPCS: 77334; 77470; Q9967

== ENCOUNTER 2020-02-27 05:26 | Outpatient (RCR) | payer MEDICARE, MEDICAID, SELFPAY ==
[2020-02-22 12:01] LABS: Basophils # 0.1 10^3/uL (0.0-0.1); Basophils % 0.7 %; Eosinophils # 0.4 10^3/uL (0.0-0.8); Eosinophils % 4.2 %; Hematocrit 28.9 % (37.0-47.0); Hemoglobin 9.9 g/dL (11.5-15.3); Lymphocytes # 1.9 10^3/uL (0.8-4.8); Mean Corpuscular HGB Conc 34.3 g/dL (30.0-36.0); Mean Corpuscular Hemoglobin 34.1 pg (28.0-34.0); Mean Corpuscular Volume 99.7 fL (81-99); Mean Platelet Volume 9.6 fL (7.4-10.4); Monocytes # 0.5 10^3/uL (0.2-0.9); Neutrophils # 6.62 10^3/uL (1.8-7.7); Neutrophils % 69.6 %; Nucleated Red Blood Cells % 0 %; Platelet Count 275 10^3/cmm (130-400); Red Cell Distribution Width 15.5 % (12.1-15.1); White Blood Count 9.5 10^3/uL (4.0-10.0)
[2020-02-22 12:52] LABS: Alanine Aminotransferase 14 U/L (0-33); Albumin Level 4.3 g/dL (3.5-5.2); Alkaline Phosphatase 104 IU/L (35-105); Anion Gap 17.6 (5-19); Aspartate Amino Transferase 14 U/L (0-32); Blood Urea Nitrogen 28 mg/dL (6-20); Calcium 9.6 mg/dL (8.5-10.5); Carbon Dioxide 23 mmol/L (22-29); Chloride 101 mmol/L (98-107); Globulin 2.6 g/dL (1.3-4.6); Glomerular Filtration Rate 12.1 mL/min (90-130); Glucose 194 mg/dL (65-115); Osmolality Calculated 295 mOsm/kg (285-295); Potassium 4.6 mmol/L (3.5-5.1); Sodium 137 mmol/L (136-145); Total Bilirubin 0.3 mg/dL (0.15-1.2); Total Protein 6.9 g/dL (6.6-8.7)
--- NOTE | 2020-02-25 11:48 | ONC FU_ITS ---
Dr. Damico follow up note Patient: Bharati Anthony Unit #: [id number]: 1975 Dicatated By: Cyndy Damico M.D.Date of Visit:Feb 25, 2020 Onc Med Follow-up/Prog Note History of Present Illness: Ms. Bharati Anthony, is a 44-year-old female with end-stage renal disease on peritoneal dialysis, start noticing blood in her stool around May or June 2019, initially blood was mixed with stool but then recently, noticed large amount of fresh blood per rectum she was referred to Dr. Escoto for evaluation and patient underwent colonoscopy on December 13, 2019 which showed none obstructing, small size, infiltrating, malignant appearing mass adjacent to some more polypoid appearing areas was seen just inside the anal verge. There was stigmata of bleeding from the mass. Multiple biopsies were obtained and final pathology report came back well-differentiated, nonkeratinizing invasive squamous cell carcinoma, p16 positive Patient denies any pelvic pain, denies any jaundice, denies any hemoptysis or hematemesis, patient has history of off-and-on constipation, thought it was due to peritoneal dialysis. Which was started in May 2019 for progressive renal insufficiency. Patient still makes urine. Denies any weight loss, but generalized weakness and and she has history of iron deficiency, which was multifactorial including due to renal failure, as per patient in hemodialysis clinic she used to get IV iron. Patient has history of anal intercourse, but as per patient it was for a brief period. Never been tested for HIV. Smoke about a pack a day since age 14. Denies alcohol use CT PET scan was ordered which is due on January 25, 2020. also switched to hemodialysis from peritoneal dialysis, CT PET scan done on January 24, 2020 showed an anal canal mass with increased FDG and 2 distinct left-sided presacral lymph nodes with evidence of metastatic involvement. No distant mets seen. Incidental finding of right hip total replacement with associated muscle increase of metabolic activity. And physiological increase of metabolic activity from mid through distal esophagus. Came for follow-up, denies any specific complaints, no fever chills, no nausea or vomiting, no diarrhea or constipation, history of indigestion with certain food specially spicy foods. Otherwise no dysphagia no hemoptysis or hematemesis, no fever chills, no nausea or vomiting. As per patient long-term AV fistula for hemodialysis under consideration. Medications: Acetaminophen 1 - 2 Tablet (of 500 mg) Oral PRN, CeleXA 1 Tablet (of 40 mg) Tablet Oral daily, Colace 1 Capsule (of 100 mg) Oral b.i.d. PRN, Eliquis 1 Tablet (of 2.5 mg) Oral b.i.d., Furosemide 1 Tablet (of 80 mg) Oral daily, HumaLOG 5 Units (of 100 Units/mL) Subcutaneous b.i.d. PRN, Januvia 1 Tablet (of 100 mg) Oral daily, Klor-Con M20 1 (20 meq) Tablet, controlled release Oral daily, LORazepam 0.5 - 1 Tablet (of 1 mg) Oral t.i.d. PRN, Metoprolol Tartrate 1 Tablet (of 100 mg) Oral daily, Ozempic (1 MG/DOSE) 1 mg Subcutaneous q 7 days, Pantoprazole Sodium 1 Tablet (of 40 mg) Tablet, enteric coated Oral b.i.d., Prochlorperazine Maleate 1 Tablet (of 10 mg) Oral q 4 hours PRN, RenaPlex-D 1 Tablet Oral daily, Senno 1 - 2 Tablet (of 8.6 mg) Oral daily PRN Allergies: adhesives, Cephalosporins, and Latex. Review of Systems: Review of Systems is not available for this patient. Vital Signs: Performed on Feb 25, 2020 10:55 Height - 69.00 in Weight - 151.0 lbs BSA - 1.83 sq.m BMI - 22.30 Temperature - 98.1 F (LOW) Pulse - 98 /min Respiration - 18 /min BP - 113/67 mm(hg) O2 Sat - 100 % Pain - 2 Performance Status: 1 - No physically strenuous activity, but ambulatory and able to carry out light or sedentary work (e.g. office work, light house work). (ECOG) Physical Examination: Physical Exam-Comments is not available for this patient. Lab/Imaging: Test performed on Feb 22, 2020 11:34 Sodium 137 mmol/L Potassium 4.6 mmol/L Chloride 101 mmol/L CO2 23 mmol/L Anion Gap 17.6 BUN 28 mg/dL Creatinine 4.0 mg/dL Cr Clearance (Est) 19.2000 mL/min eGFR 12.1 mL/min Glucose 194 mg/dL Osmolality - Calculated 295 mOsm/kg Calcium 9.6 mg/dL Protein, Total 6.9 g/dL Albumin 4.3 g/dL Globulin 2.6 g/dL Bilirubin, Total 0.3 mg/dL ALT (SGPT) 14 U/L AST (SGOT) 14 U/L Alkaline Phosphatase 104 IU/L WBC 9.5 10 3/uL RBC 2.90 10 6/uL HGB 9.9 g/dL HCT 28.9 % MCV 99.7 fL MCH 34.1 pg MCHC 34.3 g/dL RDW 15.5 % Platelet Count 275 10 3/cmm MPV 9.6 fL Neutrophils 6.62 10 3/uL Lymphocytes 1.9 10 3/uL Monocytes 0.5 10 3/uL Eosinophils 0.4 10 3/uL Basophils 0.1 10 3/uL Neutrophil % 69.6 % Lymphocyte % 20.0 % Monocyte % 5.0 % Eosinophil % 4.2 % Basophils % 0.7 % NRBC % 0 % Test performed on Jan 18, 2020 09:05 Hepatitis A Ab, IgM Non-Reactive Hepatitis B Core Ab, Total Non-Reactive Hepatitis B Surf Antigen Non-Reactive Hepatitis B Surface Ab 64.3 STATUS of IMMUINITY Inconsistent with Immunity 0.0 - 8.5 mIU/mL Consistent with Immunity >8.5 mIU/mL Hepatitis C Ab Non-Reactive Impression: Well-differentiated, nonkeratinizing invasive squamous cell carcinoma, p16 positive, per colonoscopy done on December 13, 2019 which showed infiltrating, small size, nonobstructive malignant appearing mass adjacent to some more polypoid appearing areas was seen just inside the anal verge. Follow-up CT PET scan done on January 24, 2020 showed FDG positive anal mass and 2 distinct left-sided presacral lymph nodes, no evidence of distant mets but there was incidental finding of physiological increased uptake in the distal to lower esophagus and uptake in the muscle around the right hip replacement Renal failure, on peritoneal dialysis since May 2019, Chronic smoking History of anemia, multifactorial Diabetes mellitus History of DVT left lower extremity. Hypertension Plan: Discussed with patient regarding her labs white blood count 9.5 hemoglobin 9.9 hematocrit 28.9 platelets 275,000 CMP within normal limit except creatinine 4 and glucose [address] PET scan finding Clinically, patient is doing reasonably well, now being started on combined chemoradiation therapy for anal cancer. Her case was discussed with GI oncology at [place] regarding dose adjustment because of renal failure and on hemodialysis and it was recommended not to use Xeloda but full dose 5-FU and also reduce mitomycin dose by 25% and to be given after dialysis. Although there is no specific data available on mitomycin dose adjustment and patient with end-stage renal disease on hemodialysis but as per GI oncology at [place] and the discussion with the pharmacist above-mentioned recommendations were made. Discussed with patient again, in detail regarding related side effects and toxicity related to modified dose mitomycin and full dose 5-FU including but not limited to bone marrow suppression and mouth sores, diarrhea, hepatic toxicity, jaundice were mentioned further teaching will be done by chemotherapy nurse, patient agreed for the treatment and so we will proceed with her combined chemoradiation therapy with modified dose mitomycin 7.5 mg/m??? on day 1 and 29 along with 5-FU 1000 mg/m??? daily for 96 hours today and a repeat on day 29 infusion along with mitomycin, concurrent with radiation therapy. She will return to clinic in 1 week with CBC CMP Signed By: Cyndy Damico M.D. <<Signature on File>>
[2020-02-25] MEDS: palonosetron 0.25 mg/5 mL SDV IV (12:30)
[2020-02-25] MEDS: sodium chloride 0.9% 250 ML 75 ML IV (12:30)
[2020-02-25] MEDS: acetaminophen 325 mg Tablet 650 MG PO (13:15)
--- NOTE | 2020-02-26 14:12 | ONCRAD TMN_ITS ---
Radiation Oncology Weekly Treatment Management Patient: Bharati Anthony MR#: [id number] : 1975 Attending Physician: Dillon Chavarria M.D. Date of Service: 02/26/2020 The patient is a 44 year old white female diagnosed with a clinical stage IIIA (T2N1a) well-differentiated, non-keratinizing invasive squamous cell carcinoma (HPV positive) anal carcinoma. She has received 4 Gy of a prescribed 50 Perez with intensity modulated radiotherapy plan with a simultaneous integrated boost utilizing a step and shoot treatment technique. She has been prescribed chemotherapy consisting of Mitomycin-C (7.5 mg/m2) and continuous infusion fluorouarcil (4g/ m2/24hrs; days 1-4) administered every 32 days. Upon review of systems, she denied any gastrointestinal complaints related to radiotherapy. On physical examination, the patient weighed 157 lbs. Her temperature was 98.3 ???F with a blood pressure of 115/74 mmHg. Her pulse was 95 bpm and her respiratory rate was 18. No erythema within the treatment eastman. Continue pelvic radiotherapy as prescribed. Signed by: Dr. Dillon Chavarria 02/26/2020 2:11:05 PM
== END 2020-02-28 10:00 | disposition home or self-care (01) ==
LOC: ONCMED 05:26
PROVIDERS: Internal Medicine Hematology & Oncology; Absent Provider Radiology Radiation Oncology; PCP Family Medicine; Visit Provider Radiology Radiation Oncology
DX: Z51.0 Encounter for antineoplastic radiation therapy (principal); C21.1 Malignant neoplasm of anal canal; D64.9 Anemia, unspecified; E11.9 Type 2 diabetes mellitus without complications; N19 Unspecified kidney failure; I10 Essential (primary) hypertension; F17.210 Nicotine dependence, cigarettes, uncomplicated; Z99.2 Dependence on renal dialysis; Z86.718 Personal history of other venous thrombosis and embolism; Z79.01 Long term (current) use of anticoagulants; Z79.4 Long term (current) use of insulin
CPT/HCPCS: 36591; 77300; 77301; 77338; 77386; 80053; 85025; 96367; 96409; 96416; 99214; J1100; J1453; J2469; J7050; J9190; J9280

== ENCOUNTER 2020-02-28 10:04 | Outpatient (CLI) | payer MEDICARE, MEDICAID, SELFPAY ==
--- NOTE | 2020-02-28 10:16 | USCV_ITS ---
Bharati Anthony Age: 44 Gender: F : 1975 Exam Date: 02/28/2020 10:51 Ordering Phys: Mohsen Mann MD Technologist: Bhavik Arroyo Exam Location: [facility] [place] Indication: HIGH RISKMED BP: 132 / 75 HR: 91 Rhythm: Sinus Technical Quality: Fair MEASUREMENTS (Male / Female) Normal Values 2D ECHO LV Diastolic Diameter PLAX 3.2 cm 4.2 - 5.9 / 3.9 - 5.3 cm LV Systolic Diameter PLAX 2.4 cm IVS Diastolic Thickness 0.7 cm 0.6 - 1.0 / 0.6 - 0.9 cm IVS Systolic Thickness 1.2 cm LVPW Diastolic Thickness 0.9 cm 0.6 - 1.0 / 0.6 - 0.9 cm LVPW Systolic Thickness 1.2 cm LVOT Diameter 2.0 cm LV Ejection Fraction 2D Teich 50.5 % LV Ejection Fraction MOD 2C 54.6 % LV Ejection Fraction 2C AL 57.0 % LA Diameter 3.0 cm LA Width 3.4 cm LA Height 3.5 cm RA Width 2.6 cm RA Height 4.2 cm M-MODE LV Diastolic Diameter MM 3.6 cm 4.2 - 5.9 / 3.9 - 5.3 cm LV Systolic Diameter MM 1.9 cm LV Ejection Fraction MM Teich 78.6 % IVS Diastolic Thickness MM 1.1 cm 0.6 - 1.0 / 0.6 - 0.9 cm IVS Systolic Thickness MM 1.7 cm LVPW Diastolic Thickness MM 1.1 cm 0.6 - 1.0 / 0.6 - 0.9 cm LVPW Systolic Thickness MM 1.7 cm RV Diastolic Diameter MM 2.4 cm Aortic Annulus Diameter 3.1 cm LA Ao Ratio MM 1.1 MV E Point Septal Separation 1.1 cm DOPPLER AV Peak Velocity 142.0 cm/s LVOT Peak Velocity 93.0 cm/s AV Area Cont Eq vti 1.9 cm squared AV Area Cont Eq pk 2.1 cm squared MV Area PHT 4.6 cm squared Mitral E to A Ratio 0.9 MV E' Velocity 42.5 cm/s Mitral E to MV E' Ratio 13.7 Mitral E to LV E' Lateral Ratio 14.8 Mitral E to LV E' Septal Ratio 13.1 TR Peak Velocity 133.7 cm/s TR Peak Gradient 7.1 mmHg TV Peak E Velocity 79.0 cm/s Right Atrial Pressure 3.0 mmHg Pulmonary Artery Systolic Pressu 10.1 mmHg PV Peak Velocity 90.0 cm/s FINDINGS Left Ventricle Normal left ventricular size and systolic function, EF 50 %. Mild concentric left renal hypertrophy. Relative hypokinesia of the septum, anteroseptum and inferior wall segments. Right Ventricle The right ventricle is normal in size and function. Right Atrium The right atrium is normal in size. Left Atrium The left atrium is normal in size. Mitral Valve Thickened mitral valve. Aortic Valve Thickened aortic valve. Tricuspid Valve No gross abnormalities noted Pulmonic Valve Pulmonic valve not well visualized. Pericardium Normal pericardium without effusion. Aorta Normal ascending aorta dimension. CONCLUSIONS Normal left ventricular size and systolic function, EF 50 %. Mild concentric left renal hypertrophy. Wall motion of normalities as mentioned above Minimally thickened aortic and mitral valves. There is no pericardial effusion. There are no intracardiac masses. Compared to the study from 03/29/2017, there is some improvement of the LV ejection fraction. Dr Hector Moe MD [facility] (Electronically Signed) Final Date: 28 February 2020 20:39 S
--- NOTE | 2020-02-28 10:39 | ECG_ITS ---
[facility] Test Date: 2020-02-28 Pat Name: Bharati Anthony Department: Room: Gender: Female Cook Manager: : 1975 Requested By: Mohsen Serna Order Number: [id number] Dung MD: Peyton Lopez M.D. Measurements Intervals Zeigler Rate: 98 P: 60 IA: 118 QRS: 27 QRSD: 100 T: 184 QT: 374 QTc: 478 Interpretive Statements SINUS RHYTHM WITH SHORT IA INTERVAL ST DEVIATION AND MODERATE T-WAVE ABNORMALITY, CONSIDER LATERAL ISCHEMIA [-0.1+ mV T WAVE IN I/aVL/V5/V6] ST DEVIATION AND MODERATE T-WAVE ABNORMALITY, CONSIDER INFERIOR ISCHEMIA [-0.1+ mV T WAVE IN II/aVF] Compared to ECG 03/31/2017 13:36:18 T-wave abnormality now present Possible ischemia now present Intraventricular conduction delay no longer present ST (T wave) deviation no longer present Electronically Signed On 02-28-2020 21:25:25 SPEEDER OPERATOR by Peyton Lopez M.D. [id number] [email or web address]
== END 2020-02-28 10:05 | disposition home or self-care (01) ==
LOC: RT 10:11
PROVIDERS: PCP Family Medicine; Visit Provider Internal Medicine Nephrology
DX: R00.0 Tachycardia, unspecified (principal); R94.31 Abnormal electrocardiogram [ECG] [EKG]; I08.0 Rheumatic disorders of both mitral and aortic valves; Z79.899 Other long term (current) drug therapy
CPT/HCPCS: 93005; 93306

== ENCOUNTER 2020-03-19 05:41 | Outpatient (RCR) | payer MEDICARE, MEDICAID, SELFPAY ==
[2020-03-03] MEDS: acyclovir 800 MG in sodium chloride 0.9% (100 ml) 100 ML 120 MG IV (14:58)
[2020-03-03] MEDS: fluconazole premix 200 MG/100 ML PREMIX 100 MG IV (16:05)
[2020-03-03 16:18] LABS: Basophils % 0.5 %; Eosinophils # 0.1 10^3/uL (0.0-0.8); Eosinophils % 2.8 %; Hematocrit 23.4 % (37.0-47.0); Lymphocytes # 1.1 10^3/uL (0.8-4.8); Lymphocytes % 26.2 %; Mean Corpuscular HGB Conc 34.2 g/dL (30.0-36.0); Mean Corpuscular Hemoglobin 34.6 pg (28.0-34.0); Mean Corpuscular Volume 101.3 fL (81-99); Mean Platelet Volume 9.4 fL (7.4-10.4); Monocytes # 0.2 10^3/uL (0.2-0.9); Neutrophils # 2.78 10^3/uL (1.8-7.7); Neutrophils % 65.1 %; Nucleated Red Blood Cells % 0 %; Platelet Count 178 10^3/cmm (130-400); Red Blood Count 2.31 10^6/uL (4.1-5.3); Red Cell Distribution Width 14.8 % (12.1-15.1); White Blood Count 4.3 10^3/uL (4.0-10.0)
[2020-03-03 16:39] LABS: Alanine Aminotransferase 8 U/L (0-33); Albumin Level 3.3 g/dL (3.5-5.2); Alkaline Phosphatase 71 IU/L (35-105); Anion Gap 8.7 (5-19); Aspartate Amino Transferase 13 U/L (0-32); Blood Urea Nitrogen 18 mg/dL (6-20); Calcium 8.5 mg/dL (8.5-10.5); Carbon Dioxide 36 mmol/L (22-29); Chloride 98 mmol/L (98-107); Globulin 2.1 g/dL (1.3-4.6); Glomerular Filtration Rate 26.9 mL/min (90-130); Glucose 171 mg/dL (65-115); Osmolality Calculated 294 mOsm/kg (285-295); Potassium 3.7 mmol/L (3.5-5.1); Sodium 139 mmol/L (136-145); Total Bilirubin 0.2 mg/dL (0.15-1.2); Total Protein 5.4 g/dL (6.6-8.7)
--- NOTE | 2020-03-04 09:22 | ONC FU_ITS ---
Dr. Damico follow up note Patient: Bharati Anthony Unit #: [id number]: 1975 Dicatated By: Cyndy Damico M.D.Date of Visit:Mar 04, 2020 Onc Med Follow-up/Prog Note History of Present Illness: Ms. Bharati Anthony, is a 44-year-old female with end-stage renal disease on peritoneal dialysis, start noticing blood in her stool around May or June 2019, initially blood was mixed with stool but then recently, noticed large amount of fresh blood per rectum she was referred to Dr. Escoto for evaluation and patient underwent colonoscopy on December 13, 2019 which showed none obstructing, small size, infiltrating, malignant appearing mass adjacent to some more polypoid appearing areas was seen just inside the anal verge. There was stigmata of bleeding from the mass. Multiple biopsies were obtained and final pathology report came back well-differentiated, nonkeratinizing invasive squamous cell carcinoma, p16 positive Patient denies any pelvic pain, denies any jaundice, denies any hemoptysis or hematemesis, patient has history of off-and-on constipation, thought it was due to peritoneal dialysis. Which was started in May 2019 for progressive renal insufficiency. Patient still makes urine. Denies any weight loss, but generalized weakness and and she has history of iron deficiency, which was multifactorial including due to renal failure, as per patient in hemodialysis clinic she used to get IV iron. Patient has history of anal intercourse, but as per patient it was for a brief period. Never been tested for HIV. Smoke about a pack a day since age 14. Denies alcohol use CT PET scan was ordered which is due on January 25, 2020. also switched to hemodialysis from peritoneal dialysis, CT PET scan done on January 24, 2020 showed an anal canal mass with increased FDG and 2 distinct left-sided presacral lymph nodes with evidence of metastatic involvement. No distant mets seen. Incidental finding of right hip total replacement with associated muscle increase of metabolic activity. And physiological increase of metabolic activity from mid through distal esophagus. Started on combined chemoradiation with mitomycin/5-FU on February 25, 2020 Came for follow-up, complaining of skin erythema/rash involving bilateral groin area more on the right side, as per patient she has mild rash before she was started on combined chemoradiation, which was treated as fungal infection. Also complaining of mouth sores and mild diarrhea, not sure what mucus or blood. No fever chills, no hemoptysis or hematemesis, no jaundice, no abdominal pain, no dysuria or hematuria. No dysphagia, no indigestion. But generalized weakness and fatigue and mild dizziness exertion. Otherwise tolerated first cycle of chemotherapy with mitomycin and 5-FU infusion concurrent with radiation therapy. And also on hemodialysis 3 times a week. Medications: Acetaminophen 1 - 2 Tablet (of 500 mg) Oral PRN, CeleXA 1 Tablet (of 40 mg) Tablet Oral daily, Colace 1 Capsule (of 100 mg) Oral b.i.d. PRN, Eliquis 1 Tablet (of 2.5 mg) Oral b.i.d., Furosemide 1 Tablet (of 80 mg) Oral daily, HumaLOG 5 Units (of 100 Units/mL) Subcutaneous b.i.d. PRN, Januvia 1 Tablet (of 100 mg) Oral daily, Klor-Con M20 1 (20 meq) Tablet, controlled release Oral daily, LORazepam 0.5 - 1 Tablet (of 1 mg) Oral t.i.d. PRN, Metoprolol Tartrate 1 Tablet (of 100 mg) Oral daily, Ozempic (1 MG/DOSE) 1 mg Subcutaneous q 7 days, Pantoprazole Sodium 1 Tablet (of 40 mg) Tablet, enteric coated Oral b.i.d., Prochlorperazine Maleate 1 Tablet (of 10 mg) Oral q 4 hours PRN, RenaPlex-D 1 Tablet Oral daily, Senno 1 - 2 Tablet (of 8.6 mg) Oral daily PRN, Xanax 1 Tablet Oral PRN Allergies: adhesives, Cephalosporins, and Latex. Review of Systems: Constitutional - Appetite is poor and weight is stable. No fever, night sweats, or hot flashes. Energy is poor, ENMT - No sinus congestion/drainage. Positive for mouth sores. No sore throat or difficulty swallowing, Hematologic/Lymphatic - No abnormal bruising or bleeding, Respiratory - Positive for shortness of breath. No cough. No pleuritic pain or hemoptysis, Cardiovascular - No angina pain. No palpitations, Gastrointestinal - Positive for nausea and vomiting. No heartburn or acid reflux. Positive for diarrhea no constipation. No blood in the stool or black stools. Positive for mucus in the stool, Genitourinary (F) - No dysuria or hematuria. No urinary frequency. No urgency or incontinence, Musculoskeletal - No joint or bone pain, Integumentary - positive for skin fold irritation, Neurologic - No headache or dizziness. No numbness or tingling. No other focal neurologic symptoms, Psychiatric - No anxiety or depression. Positve for insomnia. Vital Signs: Performed on Mar 04, 2020 09:01 Height - 69.00 in Weight - 152.4 lbs Temperature - 99.0 F Pulse - 106 Respiration - 18 BP - 113/70 mm(hg) O2 Sat - 100 % Pain - 3 Performed on Mar 04, 2020 09:01 BMI - 22.506 kg/m2 Performed on Mar 04, 2020 08:14 Height - 69.00 in Weight - 152.4 lbs (LOW) BSA - 1.84 sq.m BMI - 22.51 Temperature - 99.0 F (HIGH) Pulse - 106 /min (HIGH) Respiration - 18 /min BP - 113/70 mm(hg) O2 Sat - 100 % Pain - 2 Performance Status: 2 - Ambulatory/capable of all self-care, unable to perform any work activities. Up and about more than 50% of waking hours. (ECOG) Physical Examination: ENMT - Grade 1 mucositis, no blistering, no bleeding, no sloughing, no thrush, Respiratory - Lungs are clear to auscultation, Cardiovascular - Regular rate and rhythm of heart, Abdomen - Soft, bowel sounds present, erythema with mild skin sloughing in the right groin area and erythema/reaction left with no purulent discharge, Extremities - No edema. Lab/Imaging: Test performed on Feb 22, 2020 11:34 Sodium 137 mmol/L Potassium 4.6 mmol/L Chloride 101 mmol/L CO2 23 mmol/L Anion Gap 17.6 BUN 28 mg/dL Creatinine 4.0 mg/dL Cr Clearance (Est) 19.2000 mL/min eGFR 12.1 mL/min Glucose 194 mg/dL Osmolality - Calculated 295 mOsm/kg Calcium 9.6 mg/dL Protein, Total 6.9 g/dL Albumin 4.3 g/dL Globulin 2.6 g/dL Bilirubin, Total 0.3 mg/dL ALT (SGPT) 14 U/L AST (SGOT) 14 U/L Alkaline Phosphatase 104 IU/L WBC 9.5 10 3/uL RBC 2.90 10 6/uL HGB 9.9 g/dL HCT 28.9 % MCV 99.7 fL MCH 34.1 pg MCHC 34.3 g/dL RDW 15.5 % Platelet Count 275 10 3/cmm MPV 9.6 fL Neutrophils 6.62 10 3/uL Lymphocytes 1.9 10 3/uL Monocytes 0.5 10 3/uL Eosinophils 0.4 10 3/uL Basophils 0.1 10 3/uL Neutrophil % 69.6 % Lymphocyte % 20.0 % Monocyte % 5.0 % Eosinophil % 4.2 % Basophils % 0.7 % NRBC % 0 % Test performed on Feb 21, 2020 13:27 Magnesium 2.2 mg/dL PTH, Intact 404 pg/mL % Iron Saturation 202 % Iron, Total 71 mcg/dL TIBC 273 mcg/dL Hemoglobin A1C 5.5 % Test performed on Jan 18, 2020 09:05 Hepatitis A Ab, IgM Non-Reactive Hepatitis B Core Ab, Total Non-Reactive Hepatitis B Surf Antigen Non-Reactive Hepatitis B Surface Ab 64.3 STATUS of IMMUINITY Inconsistent with Immunity 0.0 - 8.5 mIU/mL Consistent with Immunity >8.5 mIU/mL Hepatitis C Ab Non-Reactive Impression: Well-differentiated, nonkeratinizing invasive squamous cell carcinoma, p16 positive, per colonoscopy done on December 13, 2019 which showed infiltrating, small size, nonobstructive malignant appearing mass adjacent to some more polypoid appearing areas was seen just inside the anal verge. Follow-up CT PET scan done on January 24, 2020 showed FDG positive anal mass and 2 distinct left-sided presacral lymph nodes, no evidence of distant mets but there was incidental finding of physiological increased uptake in the distal to lower esophagus and uptake in the muscle around the right hip replacement Renal failure, on peritoneal dialysis since May 2019, Chronic smoking History of anemia, multifactorial Diabetes mellitus History of DVT left lower extremity. Started on combined chemoradiation with mitomycin/infusional 5-FU on February 24 and she completed first course on February 29, 2020. Hypertension Plan: Discussed with patient regarding her labs white blood count 4.3 hemoglobin 8 g hematocrit 23.4 platelets 178,000 CMP within normal limit except glucose 171 and creatinine 2 Clinically, patient is doing reasonably well, tolerated first cycle of chemotherapy with mitomycin/infusional 5-FU concurrent with radiation therapy well but with expected side effect e.g. mouth sore, mild diarrhea probably due to 5-FU and other concern is her bilateral groin area skin rash/erythema with mild skin sloughing and considering timing, patient received only 6 doses of radiation therapy and just completed 5-FU, is less likely due to combined chemoradiation but patient has underlying renal failure and on hemodialysis, which may be interfering with chemotherapy clearance thus causing unusual toxicity, case was discussed with Dr. Chavarria radiation oncology regarding whether to continue radiation therapy or monitor but then concern was compromising response so it was decided to continue with radiation therapy while watching her closely. Progressive anemia, could be multifactorial, as patient is symptomatic, will consider blood transfusion Mild hyperglycemia, patient was advised to watch diet and follow her diabetic medication and recommendations. Renal insufficiency, on hemodialysis Bilateral groin skin rash/erythema, etiology unclear could be due to combined chemoradiation or superimposed fungal infection, patient was advised to maintain good hygiene in the perineal area and groin area and keep it dry, radiation is monitoring her closely and if there is no improvement may consult wound care clinic. Return to clinic in 1 week with CBC CMP. Signed By: Cyndy Damico M.D. <<Signature on File>>
--- NOTE | 2020-03-04 09:46 | ONCRAD TMN_ITS ---
Radiation Oncology Weekly Treatment Management Patient: Bharati Anthony MR#: [id number] : 1975 Attending Physician: Dillon Chavarria M.D. 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 She has received 12.6 Gy of a prescribed 54 Perez with intensity modulated radiotherapy plan with a simultaneous integrated boost utilizing a step and shoot treatment technique. She has been prescribed chemotherapy consisting of Mitomycin-C (7.5 mg/m2) and continuous infusion fluorouarcil (4g/ m2/24hrs; days 1-4) administered every 32 days. Upon review of systems, she denied any gastrointestinal complaints related to radiotherapy. On physical examination, the patient weighed 152 lbs. Her temperature was 99 ???F with a blood pressure of 113/70 mmHg. Her pulse was 106 bpm and her respiratory rate was 18. Linear desquamation was noted within the inguinal regions. Continue pelvic radiotherapy as planned. Signed by: Dr. Dillon Chavarria 03/04/2020 9:46:15 AM
[2020-03-06 14:29] LABS: Basophils % 0.3 %; Eosinophils # 0.2 10^3/uL (0.0-0.8); Eosinophils % 6.6 %; Hemoglobin 8.7 g/dL (11.5-15.3); Lymphocytes # 0.6 10^3/uL (0.8-4.8); Lymphocytes % 20.1 %; Mean Corpuscular HGB Conc 33.5 g/dL (30.0-36.0); Mean Corpuscular Hemoglobin 34.7 pg (28.0-34.0); Mean Corpuscular Volume 103.6 fL (81-99); Mean Platelet Volume 9.7 fL (7.4-10.4); Monocytes # 0.2 10^3/uL (0.2-0.9); Monocytes % 7.3 %; Neutrophils # 1.98 10^3/uL (1.8-7.7); Neutrophils % 65.4 %; Nucleated Red Blood Cells % 0 %; Platelet Count 163 10^3/cmm (130-400); Red Blood Count 2.51 10^6/uL (4.1-5.3); Red Cell Distribution Width 15.8 % (12.1-15.1)
--- NOTE | 2020-03-11 14:39 | ONCRAD TMN_ITS ---
Radiation Oncology Weekly Treatment Management Patient: Bharati Anthony MR#: [id number] : 1975 Attending Physician: Dillon Chavarria M.D. Date of Service: 03/11/2020 Referring Physician: Dr. 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 She has received 21.6 Gy of a prescribed 54 Perez with intensity modulated radiotherapy plan with a simultaneous integrated boost utilizing a step and shoot treatment technique. She has been prescribed chemotherapy consisting of Mitomycin-C (7.5 mg/m2) and continuous infusion fluorouarcil (4g/m2/24hrs; days 1-4) administered every 32 days. Upon review of systems, she described loose stool containing mucous. She also reported a rash on her arms and neck. On physical examination, the patient weighed 153 lbs. Her temperature was 97.5???F with a blood pressure of 115/65 mmHg. Her pulse was 99 bpm and her respiratory rate was 18. No significant dermatitis identified. A blotchy, popular rash was present on her arms and neck. Continue pelvic radiotherapy as prescribed. Diphenhydramine for the rash. Signed by: Dr. Dillon Chavarria 03/11/2020 2:37:36 PM
[2020-03-11 15:18] LABS: Basophils % 0.8 %; Eosinophils # 0.3 10^3/uL (0.0-0.8); Eosinophils % 9.5 %; Hematocrit 24.9 % (37.0-47.0); Hemoglobin 8.3 g/dL (11.5-15.3); Lymphocytes # 0.6 10^3/uL (0.8-4.8); Lymphocytes % 24.2 %; Mean Corpuscular HGB Conc 33.3 g/dL (30.0-36.0); Mean Corpuscular Hemoglobin 35.2 pg (28.0-34.0); Mean Corpuscular Volume 105.5 fL (81-99); Mean Platelet Volume 9.8 fL (7.4-10.4); Monocytes # 0.3 10^3/uL (0.2-0.9); Monocytes % 12.9 %; Neutrophils # 1.31 10^3/uL (1.8-7.7); Neutrophils % 49.6 %; Nucleated Red Blood Cells % 0.8 %; Platelet Count 88 10^3/cmm (130-400); Red Blood Count 2.36 10^6/uL (4.1-5.3); Red Cell Distribution Width 16.9 % (12.1-15.1); White Blood Count 2.6 10^3/uL (4.0-10.0)
[2020-03-11 15:46] LABS: Alanine Aminotransferase 11 U/L (0-33); Albumin Level 3.9 g/dL (3.5-5.2); Alkaline Phosphatase 64 IU/L (35-105); Anion Gap 13.7 (5-19); Aspartate Amino Transferase 15 U/L (0-32); Blood Urea Nitrogen 17 mg/dL (6-20); Calcium 8.7 mg/dL (8.5-10.5); Carbon Dioxide 27 mmol/L (22-29); Chloride 102 mmol/L (98-107); Globulin 2.1 g/dL (1.3-4.6); Glomerular Filtration Rate 18.3 mL/min (90-130); Glucose 165 mg/dL (65-115); Osmolality Calculated 293 mOsm/kg (285-295); Potassium 3.7 mmol/L (3.5-5.1); Sodium 139 mmol/L (136-145); Total Bilirubin 0.3 mg/dL (0.15-1.2)
--- NOTE | 2020-03-12 14:15 | ONC FU_ITS ---
Dr. Damico follow up note Patient: Bharati Anthony Unit #: [id number]: 1975 Dicatated By: Cyndy Damico M.D.Date of Visit:Mar 12, 2020 Onc Med Follow-up/Prog Note History of Present Illness: Ms. Bharati Anthony, is a 44-year-old female with end-stage renal disease on peritoneal dialysis, start noticing blood in her stool around May or June 2019, initially blood was mixed with stool but then recently, noticed large amount of fresh blood per rectum she was referred to Dr. Escoto for evaluation and patient underwent colonoscopy on December 13, 2019 which showed none obstructing, small size, infiltrating, malignant appearing mass adjacent to some more polypoid appearing areas was seen just inside the anal verge. There was stigmata of bleeding from the mass. Multiple biopsies were obtained and final pathology report came back well-differentiated, nonkeratinizing invasive squamous cell carcinoma, p16 positive Patient denies any pelvic pain, denies any jaundice, denies any hemoptysis or hematemesis, patient has history of off-and-on constipation, thought it was due to peritoneal dialysis. Which was started in May 2019 for progressive renal insufficiency. Patient still makes urine. Denies any weight loss, but generalized weakness and and she has history of iron deficiency, which was multifactorial including due to renal failure, as per patient in hemodialysis clinic she used to get IV iron. Patient has history of anal intercourse, but as per patient it was for a brief period. Never been tested for HIV. Smoke about a pack a day since age 14. Denies alcohol use CT PET scan was ordered which is due on January 25, 2020. also switched to hemodialysis from peritoneal dialysis, CT PET scan done on January 24, 2020 showed an anal canal mass with increased FDG and 2 distinct left-sided presacral lymph nodes with evidence of metastatic involvement. No distant mets seen. Incidental finding of right hip total replacement with associated muscle increase of metabolic activity. And physiological increase of metabolic activity from mid through distal esophagus. Started on combined chemoradiation with mitomycin/5-FU on February 25, 2020 Came for follow-up, complaining of burning and itching in anal area for the last week but no bleeding, no discharge. No fever chills, no nausea or vomiting, no diarrhea constipation, mouth sores improved now she has only small one in her upper mouth which is improving too. No diarrhea or constipation no jaundice no abdominal pain, no nosebleed or gum bleed no hematuria. Medications: Acetaminophen 1 - 2 Tablet (of 500 mg) Oral PRN, CeleXA 1 Tablet (of 40 mg) Tablet Oral daily, Colace 1 Capsule (of 100 mg) Oral b.i.d. PRN, Eliquis 1 Tablet (of 2.5 mg) Oral b.i.d., Furosemide 1 Tablet (of 80 mg) Oral daily, HumaLOG 5 Units (of 100 Units/mL) Subcutaneous b.i.d. PRN, Januvia 1 Tablet (of 100 mg) Oral daily, Klor-Con M20 1 (20 meq) Tablet, controlled release Oral daily, LORazepam 0.5 - 1 Tablet (of 1 mg) Oral t.i.d. PRN, Metoprolol Tartrate 1 Tablet (of 100 mg) Oral daily, Ozempic (1 MG/DOSE) 1 mg Subcutaneous q 7 days, Pantoprazole Sodium 1 Tablet (of 40 mg) Tablet, enteric coated Oral b.i.d., Prochlorperazine Maleate 1 Tablet (of 10 mg) Oral q 4 hours PRN, RenaPlex-D 1 Tablet Oral daily, Senno 1 - 2 Tablet (of 8.6 mg) Oral daily PRN, Xanax 1 Tablet Oral PRN Allergies: adhesives, Cephalosporins, and Latex. Review of Systems: Review of Systems is not available for this patient. Vital Signs: Performed on Mar 12, 2020 13:34 Height - 69.00 in Weight - 155.4 lbs (HIGH) BSA - 1.86 sq.m BMI - 22.95 Temperature - 98.4 F Pulse - 113 /min (HIGH) Respiration - 16 /min BP - 170/102 mm(hg) (HIGH) O2 Sat - 98 % Pain - 2 Performance Status: 2 - Ambulatory/capable of all self-care, unable to perform any work activities. Up and about more than 50% of waking hours. (ECOG) Physical Examination: ENMT - No thrush, no mucositis, no jaundice, Respiratory - Lungs are clear to auscultation, Cardiovascular - Regular rate and rhythm of heart, Abdomen - Soft, bowel sounds present, Extremities - No visible edema or rash. Lab/Imaging: Test performed on Mar 06, 2020 14:07 WBC 3.0 10 3/uL RBC 2.51 10 6/uL HGB 8.7 g/dL HCT 26.0 % MCV 103.6 fL MCH 34.7 pg MCHC 33.5 g/dL RDW 15.8 % Platelet Count 163 10 3/cmm MPV 9.7 fL Neutrophils 1.98 10 3/uL Lymphocytes 0.6 10 3/uL Monocytes 0.2 10 3/uL Eosinophils 0.2 10 3/uL Basophils 0.0 10 3/uL Neutrophil % 65.4 % Lymphocyte % 20.1 % Monocyte % 7.3 % Eosinophil % 6.6 % Basophils % 0.3 % NRBC % 0 % Test performed on Mar 03, 2020 16:00 Sodium 139 mmol/L Potassium 3.7 mmol/L Chloride 98 mmol/L CO2 36 mmol/L Anion Gap 8.7 BUN 18 mg/dL Creatinine 2.0 mg/dL Cr Clearance (Est) 38.4100 mL/min eGFR 26.9 mL/min Glucose 171 mg/dL Osmolality - Calculated 294 mOsm/kg Calcium 8.5 mg/dL Protein, Total 5.4 g/dL Albumin 3.3 g/dL Globulin 2.1 g/dL Bilirubin, Total 0.2 mg/dL ALT (SGPT) 8 U/L AST (SGOT) 13 U/L Alkaline Phosphatase 71 IU/L Test performed on Feb 21, 2020 13:27 Magnesium 2.2 mg/dL PTH, Intact 404 pg/mL % Iron Saturation 202 % Iron, Total 71 mcg/dL TIBC 273 mcg/dL Hemoglobin A1C 5.5 % Test performed on Jan 18, 2020 09:05 Hepatitis A Ab, IgM Non-Reactive Hepatitis B Core Ab, Total Non-Reactive Hepatitis B Surf Antigen Non-Reactive Hepatitis B Surface Ab 64.3 STATUS of IMMUINITY Inconsistent with Immunity 0.0 - 8.5 mIU/mL Consistent with Immunity >8.5 mIU/mL Hepatitis C Ab Non-Reactive Impression: Well-differentiated, nonkeratinizing invasive squamous cell carcinoma, p16 positive, per colonoscopy done on December 13, 2019 which showed infiltrating, small size, nonobstructive malignant appearing mass adjacent to some more polypoid appearing areas was seen just inside the anal verge. Follow-up CT PET scan done on January 24, 2020 showed FDG positive anal mass and 2 distinct left-sided presacral lymph nodes, no evidence of distant mets but there was incidental finding of physiological increased uptake in the distal to lower esophagus and uptake in the muscle around the right hip replacement Renal failure, on peritoneal dialysis since May 2019, Chronic smoking History of anemia, multifactorial Diabetes mellitus History of DVT left lower extremity. Started on combined chemoradiation with mitomycin/infusional 5-FU on February 24 and she completed first course on February 29, 2020. Hypertension Plan: Discussed with patient regarding her labs white blood count 2.6 hemoglobin 8.3 hematocrit 24.9 platelets 88,000 ANC 1310 CMP within normal limit except creatinine 2.8 and glucose 165 Clinically, patient is doing reasonably well, tolerating combined chemoradiation with mitomycin/5-FU infusional concurrent with radiation well but with expected side effects, now with mucositis/dermatitis involving an area due to radiation therapy. Patient was advised to use Tucks or Preparation H and follow-up with radiation oncology for further management As per his pancytopenia is concerned probably due to combined chemoradiation, will continue to monitor and repeat CBC in 1 week as patient is scheduled for AV fistula for hemodialysis on March 20, 2020 and also her next cycle of chemotherapy is due on March 24, 2019 so if CBC done in a week shows persistent or progressive leukopenia, will consider Neupogen to improve her leukopenia. As far as anemia is concerned, it appears multifactorial as patient has end-stage renal disease on on hemodialysis, if hemoglobin drops below 8 g,, will consider blood transfusion Signed By: Cyndy Damico M.D. <<Signature on File>>
--- NOTE | 2020-03-18 14:53 | ONCRAD TMN_ITS ---
Treatment Management Note Patient Name: Bharati Anthony Date of : 1975 Date of Service: 03/18/2020 Attending Physician: Dillon Chavarria M.D. 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 She has received 27 Gy of a prescribed 54 Perez with intensity modulated radiotherapy plan with a simultaneous integrated boost utilizing a step and shoot treatment technique. She has been prescribed chemotherapy consisting of Mitomycin-C (7.5 mg/m2) and continuous infusion fluorouarcil (4g/m2/24hrs; days 1-4) administered every 32 days. Upon review of systems, she described a rash on her arms and neck. On physical examination, the patient weighed 152 lbs. Her temperature was 98.4???F with a blood pressure of 121/78 mmHg. Her pulse was 102 bpm and her respiratory rate was 18. No significant dermatitis identified. An urticarial rash was present on her forearms and neck. Continue pelvic radiotherapy as planned. A Medrol Dosepak has been prescribed. Signed by: Dr. Dillon Chavarria 03/18/2020 2:51:52 PM
== END 2020-03-20 23:59 | disposition home or self-care (01) ==
LOC: ONCMED 05:41
PROVIDERS: Internal Medicine Hematology & Oncology; Absent Provider Radiology Radiation Oncology; PCP Family Medicine; Visit Provider Radiology Radiation Oncology
DX: Z51.0 Encounter for antineoplastic radiation therapy (principal); C21.1 Malignant neoplasm of anal canal; R21 Rash and other nonspecific skin eruption; D70.1 Agranulocytosis secondary to cancer chemotherapy; T45.1X5A Adverse effect of antineoplastic and immunosuppressive drugs, initial encounter; D63.0 Anemia in neoplastic disease; F17.210 Nicotine dependence, cigarettes, uncomplicated; E11.65 Type 2 diabetes mellitus with hyperglycemia; E11.22 Type 2 diabetes mellitus with diabetic chronic kidney disease; I12.0 Hypertensive chronic kidney disease with stage 5 chronic kidney disease or end stage renal disease; N18.6 End stage renal disease; D63.1 Anemia in chronic kidney disease; R87.810 Cervical high risk human papillomavirus (HPV) DNA test positive; Z99.2 Dependence on renal dialysis; Z86.718 Personal history of other venous thrombosis and embolism; Z79.899 Other long term (current) drug therapy; Z79.4 Long term (current) use of insulin; Z79.01 Long term (current) use of anticoagulants
CPT/HCPCS: 36591; 77014; 77336; 77386; 77427; 80053; 85025; 93005; 93306; 96365; 96367; 96523; 99214; J0133; J1450

== ENCOUNTER 2020-04-11 06:00 | Outpatient (RCR) | payer MEDICARE, MEDICAID, SELFPAY ==
--- NOTE | 2020-03-26 15:10 | ONCRAD TMN_ITS ---
Radiation Oncology Treatment Management Note Patient Name: Bharati Anthony Date of : 1975 Date of Service: 03/26/2020 Attending Physician: Dillon Chavarria M.D. 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 She has received 32.4 Gy of a prescribed 54 Peerz with intensity modulated radiotherapy plan with a simultaneous integrated boost utilizing a step and shoot treatment technique. She has been prescribed chemotherapy consisting of Mitomycin-C (7.5 mg/m2) and continuous infusion fluorouarcil (4g/m2/24hrs; days 1-4) administered every 32 days. Upon review of systems, she denied any gastrointestinal symptoms related to radiotherapy. On physical examination, the patient weighed 155 lbs. Her temperature was 98.5???F with a blood pressure of 114/69 mmHg. Her pulse was 103 bpm and her respiratory rate was 16. No significant dermatitis identified. Hyperpigmentation was present within the skin of the pelvis and gluteal cleft Continue pelvic radiotherapy as prescribed. Signed by: Dr. Dillon Chavarria 03/26/2020 3:09:51 PM
[2020-03-31 11:26] LABS: Basophils % 0.6 %; Eosinophils # 0.7 10^3/uL (0.0-0.8); Eosinophils % 19.5 %; Hematocrit 23.5 % (37.0-47.0); Hemoglobin 8.2 g/dL (11.5-15.3); Lymphocytes # 0.4 10^3/uL (0.8-4.8); Lymphocytes % 12.6 %; Mean Corpuscular HGB Conc 34.9 g/dL (30.0-36.0); Mean Corpuscular Hemoglobin 37.6 pg (28.0-34.0); Mean Corpuscular Volume 107.8 fL (81-99); Mean Platelet Volume 9.5 fL (7.4-10.4); Monocytes # 0.4 10^3/uL (0.2-0.9); Monocytes % 11.7 %; Neutrophils # 1.85 10^3/uL (1.8-7.7); Neutrophils % 55.3 %; Nucleated Red Blood Cells % 0 %; Platelet Count 183 10^3/cmm (130-400); Red Blood Count 2.18 10^6/uL (4.1-5.3); Red Cell Distribution Width 19.5 % (12.1-15.1); White Blood Count 3.3 10^3/uL (4.0-10.0)
[2020-03-31 11:52] LABS: Alanine Aminotransferase 19 U/L (0-33); Albumin Level 3.7 g/dL (3.5-5.2); Alkaline Phosphatase 72 IU/L (35-105); Anion Gap 11.7 (5-19); Aspartate Amino Transferase 23 U/L (0-32); Blood Urea Nitrogen 6 mg/dL (6-20); Calcium 8.5 mg/dL (8.5-10.5); Carbon Dioxide 33 mmol/L (22-29); Chloride 97 mmol/L (98-107); Globulin 2.1 g/dL (1.3-4.6); Glomerular Filtration Rate 48.6 mL/min (90-130); Glucose 111 mg/dL (65-115); Osmolality Calculated 286 mOsm/kg (285-295); Sodium 139 mmol/L (136-145); Total Bilirubin 0.4 mg/dL (0.15-1.2); Total Protein 5.8 g/dL (6.6-8.7)
[2020-03-31 11:54] LABS: Potassium 2.7 mmol/L (3.5-5.1)
[2020-03-31] MEDS: sodium chloride 0.9% (100 ml) 100 ML 999 ML IV (12:43)
[2020-03-31] MEDS: potassium chloride 20 MEQ in sodium chloride 0.9% 500 ML 255 MEQ IV (12:43)
[2020-03-31 13:15] LABS: Magnesium 1.6 mg/dL (1.7-2.3)
[2020-03-31] MEDS: palonosetron 0.25 mg/5 mL SDV IV (15:08)
--- NOTE | 2020-04-01 14:55 | ONCRAD TMN_ITS ---
Radiation Oncology Treatment Management Note Patient Name: Bharati Anthony Date of : 1975 Date of Service: 04/01/2020 Attending Physician: Dillon Chavarria M.D. 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 She has received 39.6 Gy of a prescribed 54 Perez with intensity modulated radiotherapy plan with a simultaneous integrated boost utilizing a step and shoot treatment technique. She has been prescribed chemotherapy consisting of Mitomycin-C (7.5 mg/m2) and continuous infusion fluorouarcil (4g/m2/24hrs; days 1-4) administered every 32 days. Upon review of systems, she denied any gastrointestinal symptoms related to radiotherapy. On physical examination, the patient weighed 157 lbs. Her temperature was 99.2???F with a blood pressure of 155/90 mmHg. Her pulse was 106 bpm and her respiratory rate was 18. No significant dermatitis identified. Hyperpigmentation was present within the skin of the pelvis and gluteal cleft Continue pelvic radiotherapy as planned. Signed by: Dr. Dillon Chavarria 04/01/2020 2:53:38 PM
[2020-04-04] MEDS: ondansetron 2 mg/ML SDV 2 mL 8 MG IVP (11:22)
[2020-04-04] MEDS: sodium chloride 0.9% 500 ML 999 ML IV (11:25)
--- NOTE | 2020-04-08 14:48 | ONCRAD TMN_ITS ---
Radiation Oncology Treatment Management Note Patient Name: Bharati Anthony Date of : 1975 Date of Service: 04/08/2020 Attending Physician: Dillon Chavarria M.D. 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 She has received 48.6 Gy of a prescribed 54 Perez with intensity modulated radiotherapy plan with a simultaneous integrated boost utilizing a step and shoot treatment technique. She has been prescribed chemotherapy consisting of Mitomycin-C (7.5 mg/m2) and continuous infusion fluorouarcil (4g/m2/24hrs; days 1-4) administered every 32 days. Upon review of systems, she denied any gastrointestinal symptoms related to radiotherapy. On physical examination, the patient weighed 49 lbs. Her temperature was 98.1???F with a blood pressure of 101/71 mmHg. Her pulse was 106 bpm and her respiratory rate was 18. Hyperpigmentation was present within the skin of the pelvis and gluteal cleft. A nummular area of desquamation was noted on the left buttock. Continue pelvic radiotherapy as prescribed. Signed by: Dr. Dillon Chavarria 04/08/2020 2:46:05 PM
[2020-04-10 13:49] LABS: Basophils % 0.5 %; Eosinophils # 0.1 10^3/uL (0.0-0.8); Eosinophils % 4.3 %; Hematocrit 24.9 % (37.0-47.0); Hemoglobin 8.5 g/dL (11.5-15.3); Lymphocytes # 0.2 10^3/uL (0.8-4.8); Lymphocytes % 8.1 %; Mean Corpuscular HGB Conc 34.1 g/dL (30.0-36.0); Mean Corpuscular Volume 108.3 fL (81-99); Mean Platelet Volume 10.5 fL (7.4-10.4); Monocytes # 0.2 10^3/uL (0.2-0.9); Monocytes % 11.8 %; Neutrophils % 75.3 %; Nucleated Red Blood Cells % 0 %; Platelet Count 140 10^3/cmm (130-400); White Blood Count 1.9 10^3/uL (4.0-10.0)
[2020-04-10 14:02] LABS: Alanine Aminotransferase 13 U/L (0-33); Albumin Level 3.9 g/dL (3.5-5.2); Alkaline Phosphatase 60 IU/L (35-105); Anion Gap 13.1 (5-19); Aspartate Amino Transferase 17 U/L (0-32); Blood Urea Nitrogen 9 mg/dL (6-20); Calcium 8.8 mg/dL (8.5-10.5); Carbon Dioxide 30 mmol/L (22-29); Chloride 100 mmol/L (98-107); Globulin 2.2 g/dL (1.3-4.6); Glomerular Filtration Rate 21.8 mL/min (90-130); Glucose 158 mg/dL (65-115); Osmolality Calculated 292 mOsm/kg (285-295); Potassium 3.1 mmol/L (3.5-5.1); Sodium 140 mmol/L (136-145); Total Bilirubin 0.5 mg/dL (0.15-1.2); Total Protein 6.1 g/dL (6.6-8.7)
--- NOTE | 2020-04-10 16:21 | ONC FU_ITS ---
Dr. Damico follow up note Patient: Bharati Anthony Unit #: [id number]: 1975 Dicatated By: Cyndy Damico M.D.Date of Visit:Apr 10, 2020 Onc Med Follow-up/Prog Note History of Present Illness: Ms. Bharati Anthony, is a 44-year-old female with end-stage renal disease on peritoneal dialysis, start noticing blood in her stool around May or June 2019, initially blood was mixed with stool but then recently, noticed large amount of fresh blood per rectum she was referred to Dr. Escoto for evaluation and patient underwent colonoscopy on December 13, 2019 which showed none obstructing, small size, infiltrating, malignant appearing mass adjacent to some more polypoid appearing areas was seen just inside the anal verge. There was stigmata of bleeding from the mass. Multiple biopsies were obtained and final pathology report came back well-differentiated, nonkeratinizing invasive squamous cell carcinoma, p16 positive Patient denies any pelvic pain, denies any jaundice, denies any hemoptysis or hematemesis, patient has history of off-and-on constipation, thought it was due to peritoneal dialysis. Which was started in May 2019 for progressive renal insufficiency. Patient still makes urine. Denies any weight loss, but generalized weakness and and she has history of iron deficiency, which was multifactorial including due to renal failure, as per patient in hemodialysis clinic she used to get IV iron. Patient has history of anal intercourse, but as per patient it was for a brief period. Never been tested for HIV. Smoke about a pack a day since age 14. Denies alcohol use CT PET scan was ordered which is due on January 25, 2020. also switched to hemodialysis from peritoneal dialysis, CT PET scan done on January 24, 2020 showed an anal canal mass with increased FDG and 2 distinct left-sided presacral lymph nodes with evidence of metastatic involvement. No distant mets seen. Incidental finding of right hip total replacement with associated muscle increase of metabolic activity. And physiological increase of metabolic activity from mid through distal esophagus. Started on combined chemoradiation with mitomycin/5-FU on February 25, 2020 Received second and final cycle of chemotherapy with mitomycin/5-FU on August 29, 2020 Came for follow-up, denies any specific complaint except generalized weakness and fatigue and discomfort in anal area, as per patient she was told by radiation oncology that discomfort is due to combined chemoradiation, she was advised to use sitz bath and supportive care. Patient tolerated second cycle of chemotherapy with mitomycin and continuous infusion of 5-FU for 96-hour well and now tolerating radiation therapy well and she will conclude her radiation therapy in the morning. Medications: Acetaminophen 1 - 2 Tablet (of 500 mg) Oral PRN, CeleXA 1 Tablet (of 40 mg) Tablet Oral daily, Colace 1 Capsule (of 100 mg) Oral b.i.d. PRN, Eliquis 1 Tablet (of 2.5 mg) Oral b.i.d., Furosemide 1 Tablet (of 80 mg) Oral daily, HumaLOG 5 Units (of 100 Units/mL) Subcutaneous b.i.d. PRN, Januvia 1 Tablet (of 100 mg) Oral daily, Klor-Con M20 1 (20 meq) Tablet, controlled release Oral daily, LORazepam 0.5 - 1 Tablet (of 1 mg) Oral t.i.d. PRN, Metoprolol Tartrate 1 Tablet (of 100 mg) Oral daily, Ozempic (1 MG/DOSE) 1 mg Subcutaneous q 7 days, Pantoprazole Sodium 1 Tablet (of 40 mg) Tablet, enteric coated Oral b.i.d., Prochlorperazine Maleate 1 Tablet (of 10 mg) Oral q 4 hours PRN, RenaPlex-D 1 Tablet Oral daily, Senno 1 - 2 Tablet (of 8.6 mg) Oral daily PRN, Xanax 1 Tablet Oral PRN Allergies: adhesives, Cephalosporins, and Latex. Review of Systems: Review of Systems is not available for this patient. Vital Signs: Performed on Apr 10, 2020 14:58 Height - 69.00 in Weight - 149.0 lbs (HIGH) BSA - 1.82 sq.m BMI - 22.00 Temperature - 97.9 F (LOW) Pulse - 104 /min (HIGH) Respiration - 16 /min BP - 141/73 mm(hg) (HIGH) O2 Sat - 98 % Pain - 2 Performance Status: 2 - Ambulatory/capable of all self-care, unable to perform any work activities. Up and about more than 50% of waking hours. (ECOG) Physical Examination: ENMT - No mouth sores, no thrush, no jaundice, Respiratory - Lungs are clear to auscultation, Cardiovascular - Regular rate and rhythm of heart, Abdomen - Soft, bowel sounds present, Extremities - No visible edema. Lab/Imaging: Test performed on Mar 31, 2020 11:08 Magnesium 1.6 mg/dL Sodium 139 mmol/L Potassium 2.7 mmol/L Chloride 97 mmol/L CO2 33 mmol/L Anion Gap 11.7 BUN 6 mg/dL Creatinine 1.2 mg/dL Cr Clearance (Est) 64.0100 mL/min eGFR 48.6 mL/min Glucose 111 mg/dL Osmolality - Calculated 286 mOsm/kg Calcium 8.5 mg/dL Protein, Total 5.8 g/dL Albumin 3.7 g/dL Globulin 2.1 g/dL Bilirubin, Total 0.4 mg/dL ALT (SGPT) 19 U/L AST (SGOT) 23 U/L Alkaline Phosphatase 72 IU/L WBC 3.3 10 3/uL RBC 2.18 10 6/uL HGB 8.2 g/dL HCT 23.5 % MCV 107.8 fL MCH 37.6 pg MCHC 34.9 g/dL RDW 19.5 % Platelet Count 183 10 3/cmm MPV 9.5 fL Neutrophils 1.85 10 3/uL Lymphocytes 0.4 10 3/uL Monocytes 0.4 10 3/uL Eosinophils 0.7 10 3/uL Basophils 0.0 10 3/uL Neutrophil % 55.3 % Lymphocyte % 12.6 % Monocyte % 11.7 % Eosinophil % 19.5 % Basophils % 0.6 % NRBC % 0 % Test performed on Feb 21, 2020 13:27 PTH, Intact 404 pg/mL % Iron Saturation 202 % Iron, Total 71 mcg/dL TIBC 273 mcg/dL Hemoglobin A1C 5.5 % Test performed on Jan 18, 2020 09:05 Hepatitis A Ab, IgM Non-Reactive Hepatitis B Core Ab, Total Non-Reactive Hepatitis B Surf Antigen Non-Reactive Hepatitis B Surface Ab 64.3 STATUS of IMMUINITY Inconsistent with Immunity 0.0 - 8.5 mIU/mL Consistent with Immunity >8.5 mIU/mL Hepatitis C Ab Non-Reactive Impression: Well-differentiated, nonkeratinizing invasive squamous cell carcinoma, p16 positive, per colonoscopy done on December 13, 2019 which showed infiltrating, small size, nonobstructive malignant appearing mass adjacent to some more polypoid appearing areas was seen just inside the anal verge. Follow-up CT PET scan done on January 24, 2020 showed FDG positive anal mass and 2 distinct left-sided presacral lymph nodes, no evidence of distant mets but there was incidental finding of physiological increased uptake in the distal to lower esophagus and uptake in the muscle around the right hip replacement Renal failure, on peritoneal dialysis since May 2019, Chronic smoking History of anemia, multifactorial Diabetes mellitus History of DVT left lower extremity. Started on combined chemoradiation with mitomycin/infusional 5-FU on February 24 and she completed first course on February 29, 2020.Second and final cycle of chemotherapy was given on March 31, 2020 Hypertension Plan: Discussed with patient regarding her labs white blood count 1.9 hemoglobin 8.5 hematocrit 24.9 platelets 240,000 ANC 1400 CMP within normal limit except potassium 3.1 glucose 158 creatinine 2.4, patient is on hemodialysis Clinically, patient is doing reasonably well, tolerating combined chemoradiation with mitomycin/infusional 5-FU well but with expected side effects e.g. inflammation in anorectal area patient has tolerated second and final cycle of chemotherapy with mitomycin/5-FU along with radiation therapy, well and she will conclude her radiation therapy tomorrow, case was discussed with Dr. Chavarria radiation oncologist who will refer her to colorectal surgeon in [facility], as per NCCN guidelines she will have GAB in 8 to 12 weeks. As far as anemia is concerned, it is multifactorial as patient has end-stage renal disease in addition to that combined chemoradiation therapy to the anal cancer, will continue to monitor blood counts and consider blood transfusion if hemoglobin less than 8 g As far as leukopenia is concerned again due to combined chemoradiation, her ANC is around 400 so we will continue to monitor and patient is on potassium supplement but she is noncompliant and today's CMP shows mild hypokalemia patient was advised to take her potassium supplement on regular basis, as per patient dialysis clinic is also monitoring her potassium closely. She will return to clinic in 1 week with CBC and CMP Signed By: Cyndy Damico M.D. <<Signature on File>>
[2020-04-16 16:41] LABS: Urine Appearance Clear (CLEAR); Urine Color Yellow (Yellow)
[2020-04-16 16:42] LABS: Bilirubin Urine Neg (Negative); Blood Urine Neg (Negative); Glucose Urine UA 1+ (Normal); Ketones Urine Negative (Negative); Leukocyte Esterase Urine 1+ (Negative); Nitrate Urine Negative (Negative); Protein Urine 2+ (Negative); Specific Gravity, Urine 1.015 (1.005-1.030); Sulfosalicylic Acid Urine Positive (Negative); Urobilinogen Urine Norm (Negative); pH Urine 9 (5-7)
[2020-04-16 16:44] LABS: Add Urine Culture? Yes; Bacteria Urine TRACE /hpf; RBC Urine 0-4 /hpf (0-2); Squamous Epithelial Cell Urine 0-4 /hpf (0-5); WBC Urine 40-55 /hpf (0-5)
== END 2020-04-20 23:59 | disposition home or self-care (01) ==
LOC: ONCMED 06:00
PROVIDERS: Internal Medicine Hematology & Oncology; Absent Provider Radiology Radiation Oncology; PCP Family Medicine; Visit Provider Radiology Radiation Oncology
DX: Z51.0 Encounter for antineoplastic radiation therapy (principal); Z51.11 Encounter for antineoplastic chemotherapy; C21.1 Malignant neoplasm of anal canal; E11.22 Type 2 diabetes mellitus with diabetic chronic kidney disease; N18.6 End stage renal disease; Z99.2 Dependence on renal dialysis; I12.0 Hypertensive chronic kidney disease with stage 5 chronic kidney disease or end stage renal disease; F17.210 Nicotine dependence, cigarettes, uncomplicated; Z86.718 Personal history of other venous thrombosis and embolism; Z86.2 Personal history of diseases of the blood and blood-forming organs and certain disorders involving the immune mechanism; Z79.899 Other long term (current) drug therapy
CPT/HCPCS: 36591; 77336; 77386; 80053; 81001; 83735; 85025; 87086; 96361; 96365; 96366; 96367; 96409; 96416; 99214; J1100; J1453; J2405; J2469; J3480; J7040; J9190; J9280

== ENCOUNTER 2020-04-17 15:53 | Outpatient (CLI) | payer MEDICARE, MEDICAID, SELFPAY | END 2020-04-17 15:54 | disposition home or self-care (01) | LOC: SPT 15:54 | PROVIDERS: PCP Family Medicine; Visit Provider Podiatrist Foot & Ankle Surgery | DX: Z46.89 Encounter for fitting and adjustment of other specified devices (principal); L97.522 Non-pressure chronic ulcer of other part of left foot with fat layer exposed | CPT/HCPCS: 97760; L4361 ==

== ENCOUNTER 2020-04-21 05:55 | Outpatient (RCR) | payer MEDICARE, MEDICAID, SELFPAY ==
[2020-04-21 13:30] LABS: Basophils % 0.7 %; Eosinophils # 0.1 10^3/uL (0.0-0.8); Eosinophils % 0.9 %; Hematocrit 24.7 % (37.0-47.0); Hemoglobin 8.5 g/dL (11.5-15.3); Lymphocytes # 0.5 10^3/uL (0.8-4.8); Lymphocytes % 8.6 %; Mean Corpuscular HGB Conc 34.4 g/dL (30.0-36.0); Mean Corpuscular Hemoglobin 37.6 pg (28.0-34.0); Mean Corpuscular Volume 109.3 fL (81-99); Mean Platelet Volume 9.9 fL (7.4-10.4); Monocytes # 0.6 10^3/uL (0.2-0.9); Monocytes % 9.8 %; Neutrophils # 4.45 10^3/uL (1.8-7.7); Neutrophils % 77.6 %; Nucleated Red Blood Cells % 0.5 %; Platelet Count 155 10^3/cmm (130-400); Red Blood Count 2.26 10^6/uL (4.1-5.3); Red Cell Distribution Width 17.8 % (12.1-15.1); White Blood Count 5.7 10^3/uL (4.0-10.0)
[2020-04-21 13:54] LABS: Alanine Aminotransferase 16 U/L (0-33); Albumin Level 4.1 g/dL (3.5-5.2); Alkaline Phosphatase 76 IU/L (35-105); Anion Gap 9.6 (5-19); Aspartate Amino Transferase 25 U/L (0-32); Blood Urea Nitrogen 7 mg/dL (6-20); Calcium 8.5 mg/dL (8.5-10.5); Carbon Dioxide 32 mmol/L (22-29); Chloride 100 mmol/L (98-107); Globulin 2.5 g/dL (1.3-4.6); Glomerular Filtration Rate 40.7 mL/min (90-130); Glucose 110 mg/dL (65-115); Osmolality Calculated 285 mOsm/kg (285-295); Potassium 3.6 mmol/L (3.5-5.1); Sodium 138 mmol/L (136-145); Total Bilirubin 0.5 mg/dL (0.15-1.2); Total Protein 6.6 g/dL (6.6-8.7)
[2020-04-21 16:09] LABS: Vitamin B12 831 pg/mL (232-1245)
== END 2020-04-27 18:00 | disposition home or self-care (01) ==
LOC: ONCMED 05:55
PROVIDERS: Absent Provider Radiology Radiation Oncology; PCP Family Medicine; Visit Provider Nurse Practitioner
DX: C21.1 Malignant neoplasm of anal canal (principal); D51.9 Vitamin B12 deficiency anemia, unspecified
CPT/HCPCS: 36591; 80053; 82607; 85025

== ENCOUNTER 2020-04-27 18:22 | Emergency (ER) | payer MEDICARE, MEDICAID, SELFPAY ==
[2020-04-27 18:37] VITALS: BP 193/117; PULSE 114; RESP 14; TEMP 36.6; O2SAT 100; BMI 21.4
--- NOTE | 2020-04-27 19:14 | CTR_ITS ---
PROCEDURE INFORMATION: Exam: CT Abdomen And Pelvis With Contrast Exam date and time: 04/27/2020 7:55 PM Age: 44 years old Clinical indication: Abdominal pain; Generalized; Prior surgery; Surgery date: 6+ months; Surgery type: Hip hyst dialysis cath; Patient HX: HX of rectal CA C/O abd pain TECHNIQUE: Imaging protocol: Computed tomography of the abdomen and pelvis with contrast. Total images: 228 Radiation optimization: All CT scans at this facility use at least one of these dose optimization techniques: automated exposure control; mA and/or kV adjustment per patient size (includes targeted exams where dose is matched to clinical indication); or iterative reconstruction. Contrast material: VISI 320; Contrast volume: 95 ml; Contrast route: INTRAVENOUS (IV); COMPARISON: CT chest abd pel w con* 01/11/2020 9:48 AM RADIATION DOSE METRICS: Total DLP (mGy-cm): 611.9 FINDINGS: Tubes, catheters and devices: Intraperitoneal dialysis catheter. Lungs: Limited assessment of the lung bases fails to reveal evidence for active cardiopulmonary process. Mediastinal space: Small hiatal hernia. Liver: No visible hepatic mass or cystic structure. No visible hepatic metastatic disease. Gallbladder and bile ducts: Normal. No calcified stones. No ductal dilation. Pancreas: Pancreas unremarkable. No visible pancreatic ductal ectasia. Spleen: Small splenule. Spleen otherwise unremarkable. Adrenal glands: Adrenal glands unremarkable. Kidneys and ureters: No hydronephrosis or perinephric fluid. No visible nephrolithiasis or visible ureterolithiasis. Stomach and bowel: Assessment of the hollow viscus fails to reveal evidence of active or acute pathology. Nonobstructed bowel pattern. No visible acute diverticulitis. No visible adynamic or reactive ileus. Appendix: The appendix is visualized and appears noninflamed. Intraperitoneal space: No visible evidence of mesenteric lymphadenitis or active mesenteritis/panniculitis. No visible pneumoperitoneum. No visible intraperitoneal ascites. Vasculature: The abdominal aorta is nonaneurysmal. Lymph nodes: No current visible evidence of active mesenteric or retroperitoneal lymphadenopathy. Urinary bladder: Urinary bladder unremarkable. Reproductive: Status post hysterectomy. Bones/joints: Right total hip prosthesis. No visible active or acute osseous pathology. Bilateral spondylolysis L5/S1 with grade 1 anterior spondylolisthesis. Advanced degenerative disc disease L5/S1 with disc space height loss and vacuum disc phenomenon. Discogenic sclerosis. Mild scoliotic curvature of the spine Sacral Paget's disease. Soft tissues: Unremarkable. CT/CT abdomen pelvis w con* [id number] IMPRESSION: Currently no visible evidence of active or acute abdominal or pelvic pathologic process. Radiation Dose CTDIVOL = (mGy): DLP = 611.9 (mGy-cm)
[2020-04-27 19:20] VITALS: BP 203/118; PULSE 112; RESP 17; O2SAT 99
[2020-04-27] MEDS: haloperidol inj 5 mg/mL INJ 1 mL 3 MG IVP (19:54)
[2020-04-27] MEDS: ondansetron 2 mg/ML SDV 2 mL 4 MG IVP (19:54)
[2020-04-27] MEDS: morphine 4 mg/mL SDV 1 mL IVP (19:54)
[2020-04-27] MEDS: sodium chloride 0.9% 1,000 ML 999 ML IV ×2 (19:55→22:22)
[2020-04-27 20:19] LABS: Basophils % 0.2 %; Hematocrit 28.1 % (37.0-47.0); Hemoglobin 9.4 g/dL (11.5-15.3); Lymphocytes # 0.3 10^3/uL (0.8-4.8); Lymphocytes % 5.8 %; Mean Corpuscular HGB Conc 33.5 g/dL (30.0-36.0); Mean Corpuscular Volume 110.6 fL (81-99); Monocytes # 0.1 10^3/uL (0.2-0.9); Monocytes % 2.8 %; Neutrophils # 4.26 10^3/uL (1.8-7.7); Neutrophils % 90.8 %; Nucleated Red Blood Cells % 0 %; Platelet Count 153 10^3/cmm (130-400); Red Blood Count 2.54 10^6/uL (4.1-5.3); Red Cell Distribution Width 17.8 % (12.1-15.1); White Blood Count 4.7 10^3/uL (4.0-10.0)
[2020-04-27] MEDS: iodixanol 320 mg/mL 100mL Btl IV (20:25)
[2020-04-27 20:29] LABS: HCG, Serum Qual Negative (Negative)
[2020-04-27 20:33] LABS: Alanine Aminotransferase 24 U/L (0-33); Albumin Level 4.3 g/dL (3.5-5.2); Alkaline Phosphatase 80 IU/L (35-105); Aspartate Amino Transferase 32 U/L (0-32); Blood Urea Nitrogen 24 mg/dL (6-20); C Reactive Protein 19.4 mg/L (0.0-4.9); Calcium 9.6 mg/dL (8.5-10.5); Carbon Dioxide 22 mmol/L (22-29); Chloride 99 mmol/L (98-107); Globulin 2.9 g/dL (1.3-4.6); Glomerular Filtration Rate 22.9 mL/min (90-130); Glucose 198 mg/dL (65-115); Lipase 50 U/L (13-60); Osmolality Calculated 296 mOsm/kg (285-295); Sodium 138 mmol/L (136-145); Total Bilirubin 0.7 mg/dL (0.15-1.2); Total Protein 7.2 g/dL (6.6-8.7)
[2020-04-27 20:34] LABS: INR 1.04 (0.8-1.2)
[2020-04-27 20:55] VITALS: PULSE 108; RESP 14; O2SAT 100
--- NOTE | 2020-04-27 21:04 | W.ED.ABDPA2 ---
HPI - Abdominal Pain General: Chief Complaint: Nausea/Vomiting/Diarrhea Stated Complaint: N/V Time Seen by Provider: 04/27/20 18:32 History of Present Illness: HPI narrative: 84-year-old female with a history of squamous cell carcinoma presents with nausea vomiting and generalized abdominal pain. She has had this all day. She is vomited multiple times. MD elicited complaint: abdominal pain Pertinent past history: other Onset (ago): hour(s) Pain Consistency: constant Location: Diffuse and Epigastric Severity: moderate Quality: cramping and stabbing Radiation: none Exacerbating factors: vomiting Relieving factors: nothing Associated Symptoms: Reports nausea and vomiting; Denies coffee ground emesis, diarrhea, dysuria, fever(s) and hematochezia Review of Systems Const: Denies: fever(s) Card: Denies: chest pain or edema Resp: Denies: dyspnea, productive cough or non-productive cough GI: Reports: nausea and vomiting; Denies: coffee ground emesis, diarrhea or hematochezia : Denies: dysuria Neuro: Reports: dizziness; Denies: headache(s) PFSH ED PFSH: Medical History Chronic anticoagulation Deep vein thrombosis (DVT) during Diabetes Diabetes mellitus End-stage renal disease Squamous cell carcinoma of anal canal Surgical History H/O colonoscopy H/O hand surgery History of hip surgery History of hysterectomy Peritoneal dialysis status Port-A-Cath in place S/P hemodialysis catheter insertion (01/09/20) Family History Other Cancer Diabetes Denies family history of Anesthesia complication Bleeding disorder Social History Smoking and tobacco status: current every day smoker Alcohol intake: never Household members: family Marital status: Single Current occupational status: disabled History of recent travel: No Physical Exam Const: GENERAL APPEARANCE: ill appearing and frail appearing ORIENTATION/CONSCIOUSNESS: Yes oriented to person, Yes oriented to place and Yes oriented to time HENMT: COMMON NORMALS: normocephalic, external ears normal and Normal external nose present HEAD & SCALP: normocephalic FACE & SINUS: normal facial exam NOSE: Normal external nose present and No nasal discharge present EXTERNAL EAR: Yes external ears normal Eye: COMMON NORMALS: Equal, round and reactive pupils present, EOMs intact bilaterally and conjunctivae normal EYELID: eyelids normal CONJUNCTIVA: Yes conjunctivae normal PUPIL: Yes Equal, round and reactive pupils present Neck/C-Spine: GENERAL: No tracheal deviation Chest: COMMONS NORMALS: normal inspection of the chest CHEST: No tenderness Resp: COMMON NORMALS: clear to auscultation bilaterally EFFORT & INSPECTION: Yes tachypneic, No respiratory distress, No retractions, No uses accessory muscles and No tracheal deviation AUSCULTATION: clear to auscultation bilaterally, no rhonchi, no wheezes and lung sounds not diminished Cardio: COMMON NORMALS: regular rate and regular rhythm RATE: regular rate RHYTHM: regular rhythm HEART SOUNDS: no murmurs PERIPHERAL PULSES: radial pulses present GI: INSPECTION: No abdominal distension AUSCULTATION: No Hyperactive bowel sounds present and No Hypoactive bowel sounds present PALPATION: Yes Tenderness to palpation present (GI) (diffusely), Yes Guarding due to palpation present (GI) and No Rigid due to palpation Neuro: SENSORIUM/ORIENTATION: Yes oriented to person, Yes oriented to place and Yes oriented to time Psych: COMMON NORMALS: mental status grossly normal Skin: NARRATIVE SKIN EXAM: Multiple small ulcerations to bilateral lower extremities and upper extremities. Course Vital Signs: Vital signs: Vital Signs Temperature 97.8 F 04/27/20 18:37 Pulse Rate 105 H 04/27/20 22:21 Respiratory Rate 19 H 04/27/20 22:21 Blood Pressure 203/118 04/27/20 19:20 Pulse Oximetry 97 04/27/20 22:21 MDM - Abdominal Pain MDM Narrative: Medical decision making narrative: Globin 9.4, stable from prior. Potassium is low, was repleted here. No further vomiting after Zofran and Haldol here. Her blood pressure, which was high on arrival, has normalized. Her creatinine is 2.3. This is above her baseline. She has been given 2 L of fluid here. Urine drug screen is positive for opiates and amphetamines. I do not see them prescribed to her on her med list. Could be a case of withdrawal. CT of the belly is nonacute. She will be allowed discharge home since her symptoms are improved. Lab Data: Labs: Lab Results 04/27/20 04/27/20 04/27/20 Range/Units 20:14 20:14 20:14 WBC 4.7 (4.0-10.0) 10^3/ uL RBC 2.54 L (4.1-5.3) 10^6/u L Hgb 9.4 L (11.5-15.3) g/dL Hct 28.1 L (37.0-47.0) % MCV 110.6 H (81-99) fL MCH 37.0 H (28.0-34.0) pg MCHC 33.5 (30.0-36.0) g/dL RDW 17.8 H (12.1-15.1) % Plt Count 153 (130-400) 10^3/c mm MPV 9.0 (7.4-10.4) fL Neut % (Auto) 90.8 % Lymph % (Auto) 5.8 % [place] % (Auto) 2.8 % Eos % (Auto) 0.0 % Baso % (Auto) 0.2 % Neut # (Auto) 4.26 (1.8-7.7) 10^3/u L Lymph # (Auto) 0.3 L (0.8-4.8) 10^3/u L [place] # (Auto) 0.1 L (0.2-0.9) 10^3/u L Eos # (Auto) 0.0 (0.0-0.8) 10^3/u L Baso # (Auto) 0.0 (0.0-0.1) 10^3/u L Nucleated RBC % (a uto) 0 % Nucleated RBCs # 0.0 /100WBC PT (12.1-14.9) SECO NDS INR (0.8-1.2) APTT (23.9-36.7) SECO NDS Sodium 138 (136-145) mmol/L Potassium 3.0 L (3.5-5.1) mmol/L Chloride 99 (98-107) mmol/L Carbon Dioxide 22 (22-29) mmol/L Anion Gap 20.0 H (5-19) BUN 24 H (6-20) mg/dL Creatinine 2.3 H (0.5-0.9) mg/dL GFR Calculation 22.9 L (90-130) mL/min Glucose 198 H (65-115) mg/dL Calculated Osmolal ity 296 H (285-295) mOsm/k g Calcium 9.6 (8.5-10.5) mg/dL Total Bilirubin 0.7 (0.15-1.2) mg/dL AST 32 (0-32) U/L ALT 24 (0-33) U/L Alkaline Phosphata se 80 (35-105) IU/L C-Reactive Protein 19.4 H (0.0-4.9) mg/L Total Protein 7.2 (6.6-8.7) g/dL Albumin 4.3 (3.5-5.2) g/dL Globulin 2.9 (1.3-4.6) g/dL Lipase 50 (13-60) U/L HCG, Qual Negative (Negative) Urine Color (Yellow) Urine Appearance (CLEAR) Urine pH (5-7) Ur Specific Gravit y (1.005-1.030) Urine Protein (Negative) Urine Glucose (UA) (Normal) Urine Ketones (Negative) Urine Blood (Negative) Urine Nitrate (Negative) Urine Bilirubin (Negative) Prot Sulfosalicyli c Acd (Negative) Urine Urobilinogen (Negative) mg/dL Ur Leukocyte Filomena ase (Negative) Urine RBC (0-2) /hpf Urine WBC (0-5) /hpf Ur Squamous Epith Cells (0-5) /hpf Amorphous Sediment Urine Bacteria (NONE) /hpf Coarse Granular Ca sts /lpf Urine Mucus /hpf Urine Opiates Scre en (Negative) ng/mL Ur Barbiturates Sc reen (Negative) ng/mL Ur Phencyclidine S crn (Negative) ng/mL Ur Amphetamines Sc reen (Negative) ng/mL U Benzodiazepines Scrn (Negative) ng/mL Urine Cocaine Scre en (Negative) ng/mL U Marijuana (THC) Screen (Negative) ng/mL 04/27/20 04/27/20 04/27/20 Range/Units 20:14 22:13 22:13 WBC (4.0-10.0) 10^3/ uL RBC (4.1-5.3) 10^6/u L Hgb (11.5-15.3) g/dL Hct (37.0-47.0) % MCV (81-99) fL MCH (28.0-34.0) pg MCHC (30.0-36.0) g/dL RDW (12.1-15.1) % Plt Count (130-400) 10^3/c mm MPV (7.4-10.4) fL Neut % (Auto) % Lymph % (Auto) % [place] % (Auto) % Eos % (Auto) % Baso % (Auto) % Neut # (Auto) (1.8-7.7) 10^3/u L Lymph # (Auto) (0.8-4.8) 10^3/u L [place] # (Auto) (0.2-0.9) 10^3/u L Eos # (Auto) (0.0-0.8) 10^3/u L Baso # (Auto) (0.0-0.1) 10^3/u L Nucleated RBC % (a uto) % Nucleated RBCs # /100WBC PT 13.90 (12.1-14.9) SECO NDS INR 1.04 (0.8-1.2) APTT 29.0 (23.9-36.7) SECO NDS Sodium (136-145) mmol/L Potassium (3.5-5.1) mmol/L Chloride (98-107) mmol/L Carbon Dioxide (22-29) mmol/L Anion Gap (5-19) BUN (6-20) mg/dL Creatinine (0.5-0.9) mg/dL GFR Calculation (90-130) mL/min Glucose (65-115) mg/dL Calculated Osmolal ity (285-295) mOsm/k g Calcium (8.5-10.5) mg/dL Total Bilirubin (0.15-1.2) mg/dL AST (0-32) U/L ALT (0-33) U/L Alkaline Phosphata se (35-105) IU/L C-Reactive Protein (0.0-4.9) mg/L Total Protein (6.6-8.7) g/dL Albumin (3.5-5.2) g/dL Globulin (1.3-4.6) g/dL Lipase (13-60) U/L HCG, Qual (Negative) Urine Color Yellow (Yellow) Urine Appearance Clear (CLEAR) Urine pH 9 H (5-7) Ur Specific Gravit y 1.010 (1.005-1.030) Urine Protein 2+ H (Negative) Urine Glucose (UA) 2+ (Normal) Urine Ketones 1+ H (Negative) Urine Blood Neg (Negative) Urine Nitrate Negative (Negative) Urine Bilirubin Neg (Negative) Prot Sulfosalicyli c Acd Positive (Negative) Urine Urobilinogen Norm (Negative) mg/dL Ur Leukocyte Filomena ase Negative (Negative) Urine RBC 0-4 H (0-2) /hpf Urine WBC 5-10 H (0-5) /hpf Ur Squamous Epith Cells 0-4 H (0-5) /hpf Amorphous Sediment Not Reportable Urine Bacteria Trace (NONE) /hpf Coarse Granular Ca sts Rare /lpf Urine Mucus Trace /hpf Urine Opiates Scre en Positive H (Negative) ng/mL Ur Barbiturates Sc reen Negative (Negative) ng/mL Ur Phencyclidine S crn Negative (Negative) ng/mL Ur Amphetamines Sc reen Positive H (Negative) ng/mL U Benzodiazepines Scrn Negative (Negative) ng/mL Urine Cocaine Scre en Negative (Negative) ng/mL U Marijuana (THC) Screen Negative (Negative) ng/mL Discharge Plan Discharge Patient Disposition: Home Clinical Impression: Amphetamine and psychostimulant abuse, Acute dehydration, Acute hypokalemia Vomiting Qualifiers: Vomiting type: unspecified Vomiting Intractability: intractable Nausea presence: with nausea Qualified Code(s): R11.2 - Nausea with vomiting, unspecified Condition: Stable Prescriptions: No Action Januvia 100 mg tablet 100 mg PO DAILY RF: 0 potassium chloride 20 mEq tablet extended release 20 meq PO DAILY RF: 0 alprazolam [Xanax] 0.25 mg tablet 0.25 mg PO BID PRNRF: 0 ropinirole [Requip] 0.25 mg tablet 0.25 mg PO .at bedtime RF: 0 ondansetron HCl [Zofran] 4 mg tablet 4 mg PO Q8H RF: 0 lorazepam [Ativan] 1 mg tablet 0.5 mg PO TID PRNRF: 0 prenat.vits,ashtyn,mtz-aake-mbzmf Tablet 1 tab PO DAILY RF: 0 diphenhydramine HCl [Benadryl] 25 mg capsule 25 mg PO TID PRNRF: 0 Benadryl Extra Strength 2-0.1 % cream 1 applic topical BID RF: 0 [place] (lidocaine) 2 % spray,non-aerosol 1 spray topical DAILY RF: 0 mometasone 0.1 % cream 1 applic topical .twice daily RF: 0 lorazepam 1 mg tablet 1 mg PO TID PRNRF: 0 prochlorperazine maleate [Compazine] 10 mg tablet 10 mg PO QID PRNRF: 0 gentamicin 0.1 % cream 1 applic topical TID RF: 0 mupirocin 2 % ointment 1 applic topical BID Qty: 30 RF: 0 (DME) Ashley Lopez See Rx Instructions .ROUTE .MEDSUPPLY Qty: 1 RF: 0 (DME) ASHLEY LOPEZ See Rx Instructions .ROUTE .MEDSUPPLY Qty: 1 RF: 0 acetaminophen 325 mg capsule 325 mg PO QID PRN (Reason: Pain) RF: 0 sennosides-docusate sodium 8.6-50 mg capsule 1 tab-cap PO DAILY PRN (Reason: Constipation) RF: 0 pantoprazole 40 mg tablet,delayed release (DR/EC) 40 mg PO BID RF: 0 (DME) blood-glucose meter [OneTouch UltraMini] Kit See Rx Instructions .ROUTE .MEDSUPPLY Qty: 1 RF: 0 citalopram 40 mg tablet 40 mg PO DAILY RF: 0 (DME) Diabetic Shoes Qty: 1 RF: 0 sodium bicarbonate 650 mg tablet 650 mg PO DAILY PRN (Reason: Dialysis) RF: 0 furosemide 80 mg tablet 80 mg PO DAILY RF: 0 triamcinolone acetonide 0.1 % ointment 1 applic topical BID Qty: 453.6 RF: 0 insulin lispro [Humalog U-100 Insulin] 100 unit/mL Solution 5 unit SUBCUT BID PRN (Reason: Blood Sugar >200) RF: 0 Eliquis 2.5 mg Tablet 2.5 mg PO BID RF: 0 Hold Instructions: Resume on 01/11/20. Ozempic 1 mg/dose (2 mg/1.5 mL) Pen Injector 1 mg SUBCUT Q7D RF: 0 docusate sodium [Colace] 100 mg capsule 100 mg PO DAILY PRNRF: 0 Discharge Orders: Discharge ED (Routine); Ordered 02/07/21 Ordered By: Quoc Bernstein Referrals: Herber Hussein MD [Primary Care Provider] - 4-7 days Discharge Diet: Advance as tolerated and Clear Liquid Discharge Activity: Increase activity as tolerated Activity Restrictions/Additional Instructions: Return for vomiting liquids or medications, fever greater than 100, worsening pain, other concerning symptoms. Coding Level of Care Code ED Implementation Director for Chg Fwd Exam Comprehensive
[2020-04-27 22:21] VITALS: PULSE 105; RESP 19; O2SAT 97
[2020-04-27] MEDS: potassium chloride oral liq 20 mEq/15 mL UDC 40 MEQ PO (22:22)
[2020-04-27 22:39] LABS: Amphetamines Screen Urine Positive (Negative); Barbiturates Screen Urine Negative (Negative); Benzodiazepines Screen Urine Negative (Negative); Cocaine Screen Urine Negative (Negative); Opiate Screen Urine Positive (Negative); PCP Screen Urine Negative (Negative); THC Screen Urine Negative (Negative)
[2020-04-27 22:42] LABS: Bilirubin Urine Neg (Negative); Blood Urine Neg (Negative); Glucose Urine UA 2+ (Normal); Ketones Urine 1+ (Negative); Nitrate Urine Negative (Negative); Protein Urine 2+ (Negative); Sulfosalicylic Acid Urine Positive (Negative); Urine Appearance Clear (CLEAR); Urine Color Yellow (Yellow); pH Urine 9 (5-7)
[2020-04-27 22:43] LABS: Add Urine Microscopic? YES; Leukocyte Esterase Urine Negative (Negative); Urobilinogen Urine Norm (Negative)
[2020-04-27 22:44] LABS: Bacteria Urine TRACE /hpf; Mucus Urine TRACE /hpf; RBC Urine 0-4 /hpf (0-2); Squamous Epithelial Cell Urine 0-4 /hpf (0-5)
[2020-04-27 22:45] LABS: Add Urine Culture? No; Coarse Granular Casts Urine RARE /lpf
[2020-04-28 00:05] VITALS: BP 190/116; PULSE 115; RESP 15; O2SAT 97
== END 2020-04-28 00:05 | disposition home or self-care (01) ==
PROVIDERS: Emergency Provider Emergency Medicine; PCP Family Medicine
DX: F15.10 Other stimulant abuse, uncomplicated (principal); F19.10 Other psychoactive substance abuse, uncomplicated; E86.0 Dehydration; E87.6 Hypokalemia; R11.2 Nausea with vomiting, unspecified; Z79.01 Long term (current) use of anticoagulants; Z79.4 Long term (current) use of insulin; E11.22 Type 2 diabetes mellitus with diabetic chronic kidney disease; N18.6 End stage renal disease; Z85.048 Personal history of other malignant neoplasm of rectum, rectosigmoid junction, and anus; F17.210 Nicotine dependence, cigarettes, uncomplicated; Z79.899 Other long term (current) drug therapy
CPT/HCPCS: 12345; 74177; 80053; 80306; 81001; 83690; 84703; 85025; 85610; 85730; 86140; 96361; 96374; 96375; 99283; J1630; J2270; J2405; J7030; Q9967

== ENCOUNTER 2020-05-19 06:51 | Day surgery (SDC) | payer MEDICARE, MEDICAID, SELFPAY ==
[2020-05-14 09:37] VITALS: BMI 20.5
--- NOTE | 2020-05-19 07:01 | W.PM.OPSUD ---
Surgery/Procedure H&P Update DATE OF PROCEDURE: May 19, 2020 DATE H&P PERFORMED: 04/28/20 H&P UPDATE INFORMATION: I have reviewed H&P completed within last 30 days, I have examined patient prior to procedure and No changes to prior documentation PREOP DIAGNOSIS: PD catheter removal PLANNED PROCEDURE: Operation Date: 05/19/20 08:40 Proposed Procedures p PD Catherter removal 66035 N18.6(Not Applicable) - Edwin Guadarrama MD
[2020-05-19 07:11] VITALS: BP 151/93; PULSE 118; RESP 20; TEMP 36.3; O2SAT 97
[2020-05-19 07:41] LABS: Glucose Point of Care 130 mg/dL (70-110)
[2020-05-19] MEDS: sodium chloride 0.9% 1,000 ML 30 ML IV (08:08)
[2020-05-19] MEDS: vancomycin 1,000 MG in sodium chloride 0.9% 250 ML 250 MG IV (08:08)
--- NOTE | 2020-05-19 09:02 | ANES.PREANE2 ---
Pre-Anesthetic Assessment Pre-Anesthetic Assessment: Height/Weight: Height 1.75 m Weight 63.049 kg Temp Pulse Resp BP Pulse Ox 97.3 F L 118 H 20 H 151/93 97 05/19/20 07:11 05/19/20 07:11 05/19/20 07:11 05/19/20 07:11 05/19/20 07:11 Preop Diagnosis: PD catheter removal Proposed Procedure: Operation Date: 05/19/20 08:40 Proposed Procedures p PD Catherter removal 97000 N18.6(Not Applicable) - Edwin Guadarrama MD Familial anesthetic complications: None Was Beta Ritchie taken within 24 hours: N/A Last intake: Intake Last Liquid Date 05/18/20 Last Liquid Time 23:00 Last Solid Date 05/18/20 Last Solid Time 23:00 Social: Social History: Tobacco and No alcohol Exam: Pre-Anes Outpt Exam: alert, oriented x 3, clear to auscultation bilaterally and regular rate & rhythm Airway: Cervical ROM: WNL MP: 3 Dentition: Other (poor dentition) CV/HEM: CV/HEM: DVT (eliquis last taken ) : : Chronic renal failuer (dialysis tuesday) GI: GI: GERD Metabolic: Metabolic: DM Neuropsych: Neuropsych: CVA (3 years ago, no residual) Comments: states 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 that they never treated or removed, denies headaches Anesthetic Plan: ASA status: 4 Anesthesia: MAC Risk of > 500 ml blood loss (7ml/kg in children): No Meds/Allergies Current Medications: Current Medications Generic Name Dose Route Start Last Admin Trade Name Freq PRN Reason Stop Dose Admin Sodium Chloride 1,000 mls @ 30 ml s/hr 05/19/20 07:00 05/19/20 08:08 Sodium Chloride 0.9% IV 05/20/20 06:59 30 mls/hr .Q24H BRETT Administration PFSH Anesthesia PFSH: Medical History Chronic anticoagulation Deep vein thrombosis (DVT) during Diabetes Diabetes mellitus End-stage renal disease Squamous cell carcinoma of anal canal Surgical History H/O colonoscopy H/O hand surgery History of hip surgery History of hysterectomy Peritoneal dialysis status Port-A-Cath in place S/P hemodialysis catheter insertion (01/09/20) Family History Other Cancer Diabetes Denies family history of Anesthesia complication Bleeding disorder Social History Smoking and tobacco status: current every day smoker Alcohol intake: never Household members: family Marital status: Single Current occupational status: disabled History of recent travel: No Data Anesthesia Other Labs: Laboratory Results - last 48 hr 05/19/20 07:38 POC Glucose 130 H Cardiac Studies: No Data to Display
[2020-05-19 09:40] LABS: Potassium 3.9 mmol/L (3.5-5.1)
--- NOTE | 2020-05-19 10:06 | P.OP_ITS ---
Operative Report Date of procedure: May 19, 2020 Pre-op Diagnosis: PD catheter removal Post-op diagnosis: same Procedure Done: Removal of peritoneal dialysis catheter Pathology: none sent Surgeon: Edwin Guadarrama Anesthesia: MAC Estimated blood loss (mL): 300 Condition: stable Disposition: PACU Procedure: The patient was taken to the operating room and placed under MAC after IV antibiotic had been administered. The abdomen around the PD catheter was prepped in the sterile manner. Using a 15 blade 1 cm incision was made at the site of entry into the peritoneal cavity which could be palpated. Subcutaneous tissue was divided using electrocautery and the external cuff was dissected free from the surrounding tissue. The peritoneal catheter was densely adherent to the anterior rectus sheath which was divided using electrocautery and dissection was carried onto the cuff which was freed from the adherent rectus muscle and removed intact. There was bleeding from a muscular branch as the catheter was removed. The anterior rectus sheath was opened inferiorly to identify the intramuscular vessel. Using combination of electrocautery and [id number] 3-0 Vicryl sutures, the bleeding was controlled, there was no further bleeding noted, wound was irrigated with saline and the anterior rectus sheath was closed in a running 0 Vicryl suture, subcutaneous tissues approximated using 3-0 Vicryl suture and skin was closed using running s ubcuticular 4-0 Monocryl suture and surgical glue. The catheter entry site was covered with a sterile dressing. The patient was transferred to recovery room in stable condition.
[2020-05-19 10:07] VITALS: BP 130/96; PULSE 109; RESP 20; TEMP 36.1; O2SAT 96
[2020-05-19 10:10] VITALS: BP 145/88; PULSE 104; RESP 18; O2SAT 95
[2020-05-19 10:23] VITALS: BP 119/94; PULSE 110; RESP 18; TEMP 36.2; O2SAT 97
--- NOTE | 2020-05-19 10:27 | SUR.PHASEI ---
1020 PT AWAKE ALERT TALKATIVE REQUESTS JUICE TO SIP ON WARM BLANKETS X 3 TO WARM PT. VSS PT RESP EVEN AND UNLABORED.
[2020-05-19] MEDS: HYDROcodone-acetaminophen 5-325 mg Tablet 1 TAB PO (10:45)
[2020-05-19 11:09] VITALS: BP 165/117; PULSE 98; RESP 18; TEMP 36.6; O2SAT 98
--- NOTE | 2020-05-19 11:14 | SUR.PHASEII ---
talked with dr. lord about patient blood pressure. Patient bp runs high at home and Dr. lord said she will be fine to discharge.
--- NOTE | 2020-05-19 18:03 | ANE.PACU2 ---
Inpatient post-anesthesia follow up: Airway intact: Yes Vital signs: Temperature 97.8 F Pulse Rate 98 Respiratory Rate 18 Blood Pressure 165/117 Pulse Oximetry 98 Oxygen Delivery Me thod Room Air Oxygen Flow Rate Fraction of Inspir ed Oxygen Hydration adequate: Yes Nausea and vomiting: No Pain level: 3 Mental status: Baseline
== END 2020-05-19 11:44 | disposition home or self-care (01) ==
PROVIDERS: Anesthesiology; PCP Family Medicine; Visit Provider Surgery
PROC: (CPT 49422; principal; 2020-05-19 08:30)
DX: Z49.01 Encounter for fitting and adjustment of extracorporeal dialysis catheter (principal); Z86.718 Personal history of other venous thrombosis and embolism; E11.9 Type 2 diabetes mellitus without complications; E11.22 Type 2 diabetes mellitus with diabetic chronic kidney disease; I12.0 Hypertensive chronic kidney disease with stage 5 chronic kidney disease or end stage renal disease; N18.6 End stage renal disease; Z85.048 Personal history of other malignant neoplasm of rectum, rectosigmoid junction, and anus; F17.210 Nicotine dependence, cigarettes, uncomplicated; Z79.01 Long term (current) use of anticoagulants; Z99.2 Dependence on renal dialysis; Z86.73 Personal history of transient ischemic attack (TIA), and cerebral infarction without residual deficits
CPT/HCPCS: 49422; 36416; 36592; 82962; 84132; J2704; J3010; J3370; J3490; J7030; J7050

== ENCOUNTER 2020-05-21 11:04 | Outpatient (CLI) | payer MEDICARE, MEDICAID, SELFPAY ==
[2020-05-21 12:10] LABS: Basophils % 0.4 %; Eosinophils # 0.7 10^3/uL (0.0-0.8); Hematocrit 28.4 % (37.0-47.0); Hemoglobin 9.6 g/dL (11.5-15.3); Lymphocytes # 0.8 10^3/uL (0.8-4.8); Lymphocytes % 18.1 %; Mean Corpuscular HGB Conc 33.8 g/dL (30.0-36.0); Mean Corpuscular Hemoglobin 37.1 pg (28.0-34.0); Mean Corpuscular Volume 109.7 fL (81-99); Mean Platelet Volume 10.3 fL (7.4-10.4); Monocytes # 0.4 10^3/uL (0.2-0.9); Monocytes % 8.4 %; Neutrophils # 2.62 10^3/uL (1.8-7.7); Neutrophils % 56.7 %; Nucleated Red Blood Cells % 0 %; Platelet Count 146 10^3/cmm (130-400); Red Blood Count 2.59 10^6/uL (4.1-5.3); Red Cell Distribution Width 14.6 % (12.1-15.1); White Blood Count 4.6 10^3/uL (4.0-10.0)
[2020-05-21 12:11] LABS: Alanine Aminotransferase 12 U/L (0-33); Albumin Level 3.7 g/dL (3.5-5.2); Alkaline Phosphatase 72 IU/L (35-105); Anion Gap 10.4 (5-19); Aspartate Amino Transferase 16 U/L (0-32); Blood Urea Nitrogen 9 mg/dL (6-20); Calcium 8.1 mg/dL (8.5-10.5); Carbon Dioxide 31 mmol/L (22-29); Chloride 98 mmol/L (98-107); Globulin 2.5 g/dL (1.3-4.6); Glomerular Filtration Rate 48.6 mL/min (90-130); Glucose 124 mg/dL (65-115); Osmolality Calculated 282 mOsm/kg (285-295); Potassium 3.4 mmol/L (3.5-5.1); Sodium 136 mmol/L (136-145); Total Bilirubin 0.6 mg/dL (0.15-1.2); Total Protein 6.2 g/dL (6.6-8.7)
[2020-05-21 12:27] LABS: Vitamin B12 440 pg/mL (232-1245)
== END 2020-05-21 11:05 | disposition home or self-care (01) ==
LOC: ONCMED 11:06
PROVIDERS: PCP Family Medicine; Visit Provider Internal Medicine Hematology & Oncology
DX: C21.1 Malignant neoplasm of anal canal (principal); D64.9 Anemia, unspecified
CPT/HCPCS: 36591; 80053; 82607; 82746; 85025

== ENCOUNTER 2020-05-22 05:47 | Outpatient (CLI) | payer MEDICARE, MEDICAID, SELFPAY ==
--- NOTE | 2020-05-22 16:56 | ONC FU_ITS ---
Dr. Damico follow up note Patient: Bharati Anthony Unit #: [id number]: 1975 Dicatated By: Cyndy Damico M.D.Date of Visit:May 22, 2020 Onc Med Follow-up/Prog Note History of Present Illness: Ms. Bharati Anthony, is a 44-year-old female with end-stage renal disease on peritoneal dialysis, start noticing blood in her stool around May or June 2019, initially blood was mixed with stool but then recently, noticed large amount of fresh blood per rectum she was referred to Dr. Escoto for evaluation and patient underwent colonoscopy on December 13, 2019 which showed none obstructing, small size, infiltrating, malignant appearing mass adjacent to some more polypoid appearing areas was seen just inside the anal verge. There was stigmata of bleeding from the mass. Multiple biopsies were obtained and final pathology report came back well-differentiated, nonkeratinizing invasive squamous cell carcinoma, p16 positive Patient denies any pelvic pain, denies any jaundice, denies any hemoptysis or hematemesis, patient has history of off-and-on constipation, thought it was due to peritoneal dialysis. Which was started in May 2019 for progressive renal insufficiency. Patient still makes urine. Denies any weight loss, but generalized weakness and and she has history of iron deficiency, which was multifactorial including due to renal failure, as per patient in hemodialysis clinic she used to get IV iron. Patient has history of anal intercourse, but as per patient it was for a brief period. Never been tested for HIV. Smoke about a pack a day since age 14. Denies alcohol use CT PET scan was ordered which is due on January 25, 2020. also switched to hemodialysis from peritoneal dialysis, CT PET scan done on January 24, 2020 showed an anal canal mass with increased FDG and 2 distinct left-sided presacral lymph nodes with evidence of metastatic involvement. No distant mets seen. Incidental finding of right hip total replacement with associated muscle increase of metabolic activity. And physiological increase of metabolic activity from mid through distal esophagus. Started on combined chemoradiation with mitomycin/5-FU on February 25, 2020 Received second and final cycle of chemotherapy with mitomycin/5-FU on Mar 31, 2020 Completed combined chemoradiation on April 11, 2020 Came for follow-up, denies any specific complaints, no fever chills, no nausea or vomiting, no diarrhea constipation, as per patient she is scheduled see Dr. Toney in [place] on Tuesday for evaluation. Still going for hemodialysis 3 times a week Medications: Acetaminophen 1 - 2 Tablet (of 500 mg) Oral PRN, CeleXA 1 Tablet (of 40 mg) Tablet Oral daily, Colace 1 Capsule (of 100 mg) Oral b.i.d. PRN, Coreg 1 Tablet Oral b.i.d., Eliquis 1 Tablet (of 2.5 mg) Oral b.i.d., Furosemide 1 Tablet (of 40 mg) Oral daily on ,, HumaLOG 5 Units (of 100 Units/mL) Subcutaneous b.i.d. PRN, Januvia 1 Tablet (of 100 mg) Oral daily, Klor-Con M20 1 (20 meq) Tablet, controlled release Oral daily, LORazepam 0.5 - 1 Tablet (of 1 mg) Oral t.i.d. PRN, Metoprolol Tartrate 1 Tablet (of 100 mg) Oral daily, Ozempic (1 MG/DOSE) 1 mg Subcutaneous q 7 days, Pantoprazole Sodium 1 Tablet (of 40 mg) Tablet, enteric coated Oral b.i.d., Prochlorperazine Maleate 1 Tablet (of 10 mg) Oral q 4 hours PRN, Promethazine HCl 1 Tablet (of 25 mg) Oral PRN, RenaPlex-D 1 Tablet Oral daily, Senno 1 - 2 Tablet (of 8.6 mg) Oral daily PRN, Xanax 1 Tablet Oral PRN Allergies: adhesives, Cephalosporins, and Latex. Review of Systems: Review of Systems is not available for this patient. Vital Signs: Performed on May 22, 2020 09:55 Height - 69.00 in Weight - 142.2 lbs (LOW) BSA - 1.79 sq.m BMI - 21.00 Temperature - 97.5 F (LOW) Pulse - 105 /min (HIGH) Respiration - 18 /min BP - 140/80 mm(hg) O2 Sat - 97 % Pain - 2 Performance Status: 2 - Ambulatory/capable of all self-care, unable to perform any work activities. Up and about more than 50% of waking hours. (ECOG) Physical Examination: ENMT - No mouth sores, no thrush, no jaundice, Respiratory - Lungs are clear to auscultation, Cardiovascular - Regular rate and rhythm of heart, Abdomen - Soft, bowel sounds present, Extremities - No visible edema. Lab/Imaging: Test performed on Apr 10, 2020 13:15 Sodium 140 mmol/L Potassium 3.1 mmol/L Chloride 100 mmol/L CO2 30 mmol/L Anion Gap 13.1 BUN 9 mg/dL Creatinine 2.4 mg/dL Cr Clearance (Est) 32.0100 mL/min eGFR 21.8 mL/min Glucose 158 mg/dL Osmolality - Calculated 292 mOsm/kg Calcium 8.8 mg/dL Protein, Total 6.1 g/dL Albumin 3.9 g/dL Globulin 2.2 g/dL Bilirubin, Total 0.5 mg/dL ALT (SGPT) 13 U/L AST (SGOT) 17 U/L Alkaline Phosphatase 60 IU/L WBC 1.9 10 3/uL RBC 2.30 10 6/uL HGB 8.5 g/dL HCT 24.9 % MCV 108.3 fL MCH 37.0 pg MCHC 34.1 g/dL RDW 18.0 % Platelet Count 140 10 3/cmm MPV 10.5 fL Neutrophils 1.40 10 3/uL Lymphocytes 0.2 10 3/uL Monocytes 0.2 10 3/uL Eosinophils 0.1 10 3/uL Basophils 0.0 10 3/uL Neutrophil % 75.3 % Lymphocyte % 8.1 % Monocyte % 11.8 % Eosinophil % 4.3 % Basophils % 0.5 % NRBC % 0 % Test performed on Mar 31, 2020 11:08 Magnesium 1.6 mg/dL Test performed on Feb 21, 2020 13:27 PTH, Intact 404 pg/mL % Iron Saturation 202 % Iron, Total 71 mcg/dL TIBC 273 mcg/dL Hemoglobin A1C 5.5 % Test performed on Jan 18, 2020 09:05 Hepatitis A Ab, IgM Non-Reactive Hepatitis B Core Ab, Total Non-Reactive Hepatitis B Surf Antigen Non-Reactive Hepatitis B Surface Ab 64.3 STATUS of IMMUINITY Inconsistent with Immunity 0.0 - 8.5 mIU/mL Consistent with Immunity >8.5 mIU/mL Hepatitis C Ab Non-Reactive Impression: Well-differentiated, nonkeratinizing invasive squamous cell carcinoma, p16 positive, per colonoscopy done on December 13, 2019 which showed infiltrating, small size, nonobstructive malignant appearing mass adjacent to some more polypoid appearing areas was seen just inside the anal verge., Clinical stage IIIa (T2N1A), Follow-up CT PET scan done on January 24, 2020 showed FDG positive anal mass and 2 distinct left-sided presacral lymph nodes, no evidence of distant mets but there was incidental finding of physiological increased uptake in the distal to lower esophagus and uptake in the muscle around the right hip replacement Renal failure, on peritoneal dialysis since May 2019, Chronic smoking History of anemia, multifactorial Diabetes mellitus History of DVT left lower extremity. Started on combined chemoradiation with mitomycin/infusional 5-FU on February 24 and she completed first course on February 29, 2020.Second and final cycle of chemotherapy was given on March 31, 2020, Completed combined chemoradiation on April 10, 2020 Hypertension Plan: Discussed with patient regarding her labs white blood count 4.6 hemoglobin 9.6 hematocrit 28.4 platelets 146,000 CMP within normal limit except potassium 3.4, creatinine 1.2 Clinically, patient doing well with no signs symptom suggestive of disease progression, patient has completed combined chemoradiation for anal cancer, now being scheduled see Dr. Toney in [place] on coming Tuesday and then patient will return to clinic 1 month for further discussion regarding future follow-up. As far as anemia is concerned, it is multifactorial, being managed by nephrology Mild hypokalemia, patient is noncompliant with potassium supplements because of associated nausea, as per patient dialysis clinic is monitoring her potassium level and supplementing on as-needed basis. Signed By: Cyndy Damico M.D. <<Signature on File>>
== END 2020-05-22 05:48 | disposition home or self-care (01) ==
LOC: ONCMED 05:50
PROVIDERS: PCP Family Medicine; Visit Provider Internal Medicine Hematology & Oncology
DX: C21.1 Malignant neoplasm of anal canal (principal); N18.6 End stage renal disease; F17.210 Nicotine dependence, cigarettes, uncomplicated; Z99.2 Dependence on renal dialysis; Z92.21 Personal history of antineoplastic chemotherapy; Z92.3 Personal history of irradiation
CPT/HCPCS: 99214

== ENCOUNTER 2020-06-10 16:20 | Outpatient (CLI) | payer MEDICARE, MEDICAID, SELFPAY ==
--- NOTE | 2020-06-10 16:30 | USCV_ITS ---
Bharati Anthony Age: 45 Gender: F : 1975 Exam Date: 06/10/2020 16:29 Ordering Phys: Mickey Velasquez DPM Technologist: DEISY Exam Location: [facility] [place] Indication: PAIN IN CALF HISTORY: Pain in calf PROCEDURES: Venous duplex imaging was performed in only the right lower extremity. The following venous structures were evaluated: common femoral vein, profunda vein, proximal portion of the greater saphenous vein, superficial femoral vein, and the popliteal vein. In addition, the posterior tibial and peroneal trunk were evaluated. Serial compression, augmentation maneuvers, and spectral Doppler flow evaluation were performed. FINDINGS: No DVT seen. No superficial thrombus seen CONCLUSIONS No evidence of DVT in the above-mentioned identifiable veins. No evidence of superficial vein thrombosis Dr Hector Moe MD [facility] (Electronically Signed) Final Date: 10 June 2020 18:50 S
== END 2020-06-10 16:21 | disposition home or self-care (01) ==
LOC: RAD 16:23
PROVIDERS: PCP Family Medicine; Visit Provider Podiatrist Foot & Ankle Surgery
DX: M79.661 Pain in right lower leg (principal)
CPT/HCPCS: 73630; 87070; 87075; 87077; 87186; 87205; 93971

== ENCOUNTER 2020-06-16 13:37 | Outpatient (CLI) | payer MEDICARE, MEDICAID, SELFPAY | END 2020-06-16 13:38 | disposition home or self-care (01) | PROVIDERS: PCP Family Medicine; Visit Provider Thoracic Surgery (Cardiothoracic Vascular Surgery) | DX: E11.621 Type 2 diabetes mellitus with foot ulcer (principal); L97.512 Non-pressure chronic ulcer of other part of right foot with fat layer exposed; L97.522 Non-pressure chronic ulcer of other part of left foot with fat layer exposed | CPT/HCPCS: 11042; 99203; G0463 ==

== ENCOUNTER 2020-06-20 10:04 | Outpatient (CLI) | payer MEDICARE, MEDICAID, SELFPAY ==
--- NOTE | 2020-06-20 12:18 | ONC FU_ITS ---
Dr. Damico follow up note Patient: Bharati Anthony Unit #: [id number]: 1975 Dicatated By: Cyndy Damico M.D.Date of Visit:Jun 20, 2020 Onc Med Follow-up/Prog Note History of Present Illness: Ms. Bharati Anthony, is a 44-year-old female with end-stage renal disease on peritoneal dialysis, start noticing blood in her stool around May or June 2019, initially blood was mixed with stool but then recently, noticed large amount of fresh blood per rectum she was referred to Dr. Escoto for evaluation and patient underwent colonoscopy on December 13, 2019 which showed none obstructing, small size, infiltrating, malignant appearing mass adjacent to some more polypoid appearing areas was seen just inside the anal verge. There was stigmata of bleeding from the mass. Multiple biopsies were obtained and final pathology report came back well-differentiated, nonkeratinizing invasive squamous cell carcinoma, p16 positive Patient denies any pelvic pain, denies any jaundice, denies any hemoptysis or hematemesis, patient has history of off-and-on constipation, thought it was due to peritoneal dialysis. Which was started in May 2019 for progressive renal insufficiency. Patient still makes urine. Denies any weight loss, but generalized weakness and and she has history of iron deficiency, which was multifactorial including due to renal failure, as per patient in hemodialysis clinic she used to get IV iron. Patient has history of anal intercourse, but as per patient it was for a brief period. Never been tested for HIV. Smoke about a pack a day since age 14. Denies alcohol use CT PET scan was ordered which is due on January 25, 2020. also switched to hemodialysis from peritoneal dialysis, CT PET scan done on January 24, 2020 showed an anal canal mass with increased FDG and 2 distinct left-sided presacral lymph nodes with evidence of metastatic involvement. No distant mets seen. Incidental finding of right hip total replacement with associated muscle increase of metabolic activity. And physiological increase of metabolic activity from mid through distal esophagus. Started on combined chemoradiation with mitomycin/5-FU on February 25, 2020 Received second and final cycle of chemotherapy with mitomycin/5-FU on Mar 31, 2020 Completed combined chemoradiation on April 11, 2020 Came for follow-up, denies any specific complaints, no fever chills, no nausea or vomiting, no diarrhea constipation patient was seen by Dr. Toney, on May 26, 2020 and on GAB and anoscopy evaluation, there was no evidence of tumor thus observation with follow-up every 3 months for first 2 years was recommended. Patient is happy with the report and now being regularly followed by nephrology and hemodialysis clinic Medications: Acetaminophen 1 - 2 Tablet (of 500 mg) Oral PRN, CeleXA 1 Tablet (of 40 mg) Tablet Oral daily, Colace 1 Capsule (of 100 mg) Oral b.i.d. PRN, Coreg 1 Tablet Oral b.i.d., Eliquis 1 Tablet (of 2.5 mg) Oral b.i.d., Furosemide 1 Tablet (of 40 mg) Oral daily on ,, HumaLOG 5 Units (of 100 Units/mL) Subcutaneous b.i.d. PRN, Januvia 1 Tablet (of 100 mg) Oral daily, Klor-Con M20 1 (20 meq) Tablet, controlled release Oral daily, LORazepam 0.5 - 1 Tablet (of 1 mg) Oral t.i.d. PRN, Metoprolol Tartrate 1 Tablet (of 100 mg) Oral daily, Ozempic (1 MG/DOSE) 1 mg Subcutaneous q 7 days, Pantoprazole Sodium 1 Tablet (of 40 mg) Tablet, enteric coated Oral b.i.d., Prochlorperazine Maleate 1 Tablet (of 10 mg) Oral q 4 hours PRN, Promethazine HCl 1 Tablet (of 25 mg) Oral PRN, RenaPlex-D 1 Tablet Oral daily, Senno 1 - 2 Tablet (of 8.6 mg) Oral daily PRN, Xanax 1 Tablet Oral PRN Allergies: adhesives, Cephalosporins, and Latex. Review of Systems: Review of Systems is not available for this patient. Vital Signs: Performed on Jun 20, 2020 10:19 Height - 69.00 in Weight - 142.4 lbs (HIGH) BSA - 1.79 sq.m BMI - 21.03 Temperature - 97.5 F (LOW) Pulse - 97 /min Respiration - 18 /min BP - 126/81 mm(hg) O2 Sat - 98 % Pain - 0 Performance Status: 1 - No physically strenuous activity, but ambulatory and able to carry out light or sedentary work (e.g. office work, light house work). (ECOG) Physical Examination: ENMT - No mouth sores, no thrush, no jaundice, Respiratory - Lungs are clear to auscultation, Cardiovascular - Regular rate and rhythm of heart, Abdomen - Soft, Bowel sounds present, Extremities - No visible edema. Lab/Imaging: Test performed on May 21, 2020 00:00 Ferritin 788 ng/mL Magnesium 2.0 mg/dL PTH, Intact 334 pg/mL % Iron Saturation 35 % Glucose 124 mg/dL Phosphorous 4.4 mg/dL BUN 37 mg/dL Iron, Total 83 mcg/dL Creatinine 3.00 mg/dL TIBC 236 mcg/dL Cr Clearance (Est) 25.61 mL/min Sodium 140 mmol/L Potassium 4.2 mmol/L Chloride 108 mmol/L CO2 19 mmol/L Calcium 9.1 mg/dL Protein, Total 6.2 g/dL Albumin 4.0 g/dL Globulin 2.2 g/dL Alkaline Phosphatase 73 IU/L Hemoglobin A1C 4.4 % WBC 5.80 10^9/L RBC 2.95 10^12/L HGB 10.8 g/dL HCT 33.6 % MCV 114 fl MCH 36.4 pg MCHC 32.0 g/dL RDW 16.8 % Platelet Count 162 10^9/L Manual Lymphocytes 13.9 % Manual Monocytes 5.6 % Manual Eosinophils 16.2 % Manual Basophils 0.7 % Test performed on Apr 10, 2020 13:15 Anion Gap 13.1 eGFR 21.8 mL/min Osmolality - Calculated 292 mOsm/kg Bilirubin, Total 0.5 mg/dL ALT (SGPT) 13 U/L AST (SGOT) 17 U/L MPV 10.5 fL Neutrophils 1.40 10 3/uL Lymphocytes 0.2 10 3/uL Monocytes 0.2 10 3/uL Eosinophils 0.1 10 3/uL Basophils 0.0 10 3/uL Neutrophil % 75.3 % Lymphocyte % 8.1 % Monocyte % 11.8 % Eosinophil % 4.3 % Basophils % 0.5 % NRBC % 0 % Test performed on Jan 18, 2020 09:05 Hepatitis A Ab, IgM Non-Reactive Hepatitis B Core Ab, Total Non-Reactive Hepatitis B Surf Antigen Non-Reactive Hepatitis B Surface Ab 64.3 STATUS of IMMUINITY Inconsistent with Immunity 0.0 - 8.5 mIU/mL Consistent with Immunity >8.5 mIU/mL Hepatitis C Ab Non-Reactive Impression: Well-differentiated, nonkeratinizing invasive squamous cell carcinoma, p16 positive, per colonoscopy done on December 13, 2019 which showed infiltrating, small size, nonobstructive malignant appearing mass adjacent to some more polypoid appearing areas was seen just inside the anal verge., Clinical stage IIIa (T2N1A), Follow-up CT PET scan done on January 24, 2020 showed FDG positive anal mass and 2 distinct left-sided presacral lymph nodes, no evidence of distant mets but there was incidental finding of physiological increased uptake in the distal to lower esophagus and uptake in the muscle around the right hip replacement Renal failure, on peritoneal dialysis since May 2019, Chronic smoking History of anemia, multifactorial Diabetes mellitus History of DVT left lower extremity. Started on combined chemoradiation with mitomycin/infusional 5-FU on February 24 and she completed first course on February 29, 2020.Second and final cycle of chemotherapy was given on March 31, 2020, Completed combined chemoradiation on April 10, 2020 Hypertension Plan: .Discussed with patient regarding her question concerns, patient is very excited to know that she is cancer free, as per patient she saw Dr. Toney recently and she was told there was no evidence of disease as mentioned in Dr. Trombold's note from May 26, 2020 that on GAB and anoscopy exam, there was no evidence of disease, and he will be following her every 3 months for next 2 years. As far as mild to moderate anemia is concerned, now being managed by nephrology and hemodialysis clinic We will see her back in 4 months Signed By: Cyndy Damico M.D. <<Signature on File>>
== END 2020-06-20 10:05 | disposition home or self-care (01) ==
PROVIDERS: PCP Family Medicine; Visit Provider Internal Medicine Hematology & Oncology
DX: Z08 Encounter for follow-up examination after completed treatment for malignant neoplasm (principal); Z85.038 Personal history of other malignant neoplasm of large intestine; Z92.21 Personal history of antineoplastic chemotherapy; Z92.3 Personal history of irradiation; N19 Unspecified kidney failure; D64.89 Other specified anemias
CPT/HCPCS: 99214

== ENCOUNTER 2020-06-23 15:24 | Outpatient (CLI) | payer MEDICARE, MEDICAID, SELFPAY | END 2020-06-23 15:25 | disposition home or self-care (01) | LOC: WOUND 15:26 | PROVIDERS: PCP Family Medicine; Visit Provider Nurse Practitioner Family | DX: E11.621 Type 2 diabetes mellitus with foot ulcer (principal); L97.512 Non-pressure chronic ulcer of other part of right foot with fat layer exposed; L97.522 Non-pressure chronic ulcer of other part of left foot with fat layer exposed | CPT/HCPCS: 11042 ==

== ENCOUNTER 2020-07-02 11:11 | Outpatient (CLI) | payer MEDICARE, MEDICAID, SELFPAY | END 2020-07-02 11:12 | disposition home or self-care (01) | LOC: WOUND 11:13 | PROVIDERS: PCP Family Medicine; Visit Provider Nurse Practitioner Family | DX: E11.621 Type 2 diabetes mellitus with foot ulcer (principal); L97.512 Non-pressure chronic ulcer of other part of right foot with fat layer exposed; L97.522 Non-pressure chronic ulcer of other part of left foot with fat layer exposed | CPT/HCPCS: 11042 ==

== ENCOUNTER 2020-07-09 10:53 | Outpatient (CLI) | payer MEDICARE, MEDICAID, SELFPAY | END 2020-07-09 10:54 | disposition home or self-care (01) | LOC: WOUND 10:55 | PROVIDERS: PCP Family Medicine; Visit Provider Thoracic Surgery (Cardiothoracic Vascular Surgery) | DX: E11.621 Type 2 diabetes mellitus with foot ulcer (principal); L97.512 Non-pressure chronic ulcer of other part of right foot with fat layer exposed; L97.522 Non-pressure chronic ulcer of other part of left foot with fat layer exposed | CPT/HCPCS: 11042 ==

== ENCOUNTER 2020-07-17 10:33 | Outpatient (CLI) | payer MEDICARE, MEDICAID, SELFPAY | END 2020-07-17 10:34 | disposition home or self-care (01) | LOC: WOUND 10:34 | PROVIDERS: PCP Family Medicine; Visit Provider Nurse Practitioner Family | DX: E11.621 Type 2 diabetes mellitus with foot ulcer (principal); L97.512 Non-pressure chronic ulcer of other part of right foot with fat layer exposed; L97.521 Non-pressure chronic ulcer of other part of left foot limited to breakdown of skin | CPT/HCPCS: 11042 ==

== ENCOUNTER 2020-07-19 18:35 | Emergency (ER) | payer MEDICARE, MEDICAID, SELFPAY ==
[2020-07-19 19:10] VITALS: BP 146/85; PULSE 114; RESP 22; TEMP 37.4; O2SAT 100; BMI 24.2
--- NOTE | 2020-07-19 19:23 | CTR_ITS ---
PROCEDURE INFORMATION: Exam: CT Head Without Contrast Exam date and time: 07/19/2020 7:37 PM Age: 45 years old Clinical indication: Injury or trauma; Blunt trauma (contusions or hematomas); Without loss of consciousness; Patient HX: Fall from standing denies loc TECHNIQUE: Imaging protocol: Computed tomography of the head without contrast. Radiation optimization: All CT scans at this facility use at least one of these dose optimization techniques: automated exposure control; mA and/or kV adjustment per patient size (includes targeted exams where dose is matched to clinical indication); or iterative reconstruction. COMPARISON: CT head wo con* [id number] 03/31/2017 9:08 PM RADIATION DOSE METRICS: Total DLP (mGy-cm): 824.78 FINDINGS: Brain: Normal. No hemorrhage. Unremarkable white matter. No mass effect. Cerebral ventricles: No ventriculomegaly. Bones/joints: Unremarkable. No acute fracture. Paranasal sinuses: Visualized sinuses are unremarkable. No fluid levels. Mastoid air cells: Visualized mastoid air cells are well aerated. Soft tissues: Unremarkable. Other findings: Examination is limited secondary to motion artifact. CT/CT head wo con* [id number] IMPRESSION: No acute intracranial findings. Radiation Dose CTDIVOL = (mGy): DLP = 824.78 (mGy-cm)
--- NOTE | 2020-07-19 19:23 | CTR_ITS ---
PROCEDURE INFORMATION: Exam: CT Pelvis Without Contrast; Skeletal Exam date and time: 07/19/2020 7:37 PM Age: 45 years old Clinical indication: Injury or trauma; Blunt trauma (contusions or hematomas); Left; Hip; Prior surgery; Surgery date: 6+ months; Surgery type: R jamil; Patient HX: C/O L sided pain after fall from standing TECHNIQUE: Imaging protocol: Computed tomography images of the pelvis without contrast. Exam focused on the skeletal structures. Radiation optimization: All CT scans at this facility use at least one of these dose optimization techniques: automated exposure control; mA and/or kV adjustment per patient size (includes targeted exams where dose is matched to clinical indication); or iterative reconstruction. COMPARISON: CT abdomen pelvis w con* [id number] 04/27/2020 8:26 PM RADIATION DOSE METRICS: Total DLP (mGy-cm): 479.66 FINDINGS: Reproductive: Status post hysterectomy. Vasculature: One or more calcified pelvic phleboliths. Bones/joints: Right total hip replacement with metallic artifact partially obscuring the pelvic anatomy. Grade 1 anterior spondylolytic spondylolisthesis of L5 on S1. Severe L5-S1 degenerative disc disease and spondylosis with Modic type III sclerotic endplate degenerative changes. Acute fracture through the left inferior pubic ramus. Soft tissues: Unremarkable. CT/CT bony pelvis [id number] IMPRESSION: Acute fracture through the left inferior pubic ramus. Radiation Dose CTDIVOL = (mGy): DLP = 479.66 (mGy-cm)
--- NOTE | 2020-07-19 19:23 | XRR_ITS ---
PROCEDURE INFORMATION: Exam: XR Left Wrist Exam date and time: 07/19/2020 7:47 PM Age: 45 years old Clinical indication: Injury or trauma; Fall; Blunt trauma (contusions or hematomas); Wrist; Left; Injury date: 07/19/2020 TECHNIQUE: Imaging protocol: XR Left wrist. Views: 1 or 2 views. COMPARISON: No relevant prior studies available. FINDINGS: Bones/joints: Normal. Soft tissues: Normal. XR/XR wrist LT 2V [id number] IMPRESSION: 1. No acute findings. 2. If pain persists, repeat images and/or MRI is recommended in 7-10 days to rule out occult pathology if clinically indicated.
[2020-07-19 19:54] VITALS: PULSE 118; RESP 18; O2SAT 98
[2020-07-19 20:45] VITALS: RESP 16; O2SAT 100
[2020-07-19] MEDS: HYDROmorphone 1 mg/mL INJ 1 mL 2 MG IM (20:45)
[2020-07-19] MEDS: ondansetron 2 mg/ML SDV 2 mL 4 MG IM (20:46)
[2020-07-19 21:58] VITALS: BP 182/105; PULSE 109; RESP 16; O2SAT 99
[2020-07-19 23:05] VITALS: BP 150/105; PULSE 102; RESP 14; O2SAT 98
[2020-07-20] MEDS: naloxone 0.4 mg/ml SDV 0.2 MG IM (00:32)
--- NOTE | 2020-07-20 00:40 | W.ED.FALL ---
HPI - Fall General: Chief Complaint: Fall Stated Complaint: fall/left & hip wrist injury Time Seen by Provider: 07/19/20 19:17 History of Present Illness: HPI Narrative: 45-year-old dialysis patient presenting after stepping in a hole. She notes that she fell to the side, striking her head and her hip. She complains of left hip pain, left wrist pain, and some head pain. She is crying in pain on exam MD complaint: fall Onset (ago): hour(s) Fall from: standing Fall witnessed: no Loss of consciousness: None Prolonged down time: no Symptoms prior to fall: none Context: tripped/slipped Location of injury: head and pelvis Location of injury - extremities: Left: forearm Severity: severe Quality: stabbing and aching Associated symptoms-after fall: Reports difficulty walking and headache(s) (Mild); Denies abdominal pain, confusion, neck pain or short of breath Review of Systems Const: Denies: fever(s) GI: Denies: abdominal pain Musc: Denies: neck pain Neuro: Reports: headache(s) (Mild) and difficulty walking; Denies: confusion PFSH ED PFSH: Medical History Chronic anticoagulation Deep vein thrombosis (DVT) during Diabetes Diabetes mellitus End-stage renal disease Squamous cell carcinoma of anal canal Tachycardia Surgical History H/O colonoscopy H/O hand surgery History of hip surgery History of hysterectomy Peritoneal dialysis status Port-A-Cath in place S/P hemodialysis catheter insertion (01/09/20) Status post surgery (05/19/20) Removal of peritoneal dialysis catheter Family History Other Cancer Diabetes Denies family history of Anesthesia complication Bleeding disorder Social History Smoking and tobacco status: current every day smoker Alcohol intake: never Household members: family Marital status: Single Current occupational status: disabled History of recent travel: No Physical Exam Const: GENERAL APPEARANCE: cooperative, in distress (In pain) and frail appearing ORIENTATION/CONSCIOUSNESS: Yes awake, Yes oriented to person and Yes oriented to place Resp: COMMON NORMALS: normal respiratory effort, No retractions, No use of accessory muscles and clear to auscultation bilaterally AUSCULTATION: clear to auscultation bilaterally Cardio: COMMON NORMALS: regular rate RATE: regular rate GI: COMMON NORMALS: Soft to palpation and non-tender PALPATION: Yes Soft to palpation : COMMON NORMALS: Yes no CVA tenderness BLADDER/KIDNEY EXAM: Yes no CVA tenderness Back/Pelvis: COMMON NORMALS: no CVA tenderness LUMBAR SPINE/LOWER BACK: No lumbar spinal tenderness Extremity: NARRATIVE EXTREMITY EXAM: Exam of the pelvis reveals pain on any compression testing. She is tender over her pubic symphysis and just to the left of this. She also has mild tenderness to the groin area. Exam the left upper extremity reveals some swelling of the dorsum of the left wrist. There is no deformity. There is tenderness, along the joint line. No specific snuffbox tenderness. GENERAL: Yes normal exam except as noted Neuro: SENSORIUM/ORIENTATION: Yes oriented to person and Yes oriented to place Course Vital Signs: Vital signs: Vital Signs Temperature 99.3 F 07/19/20 19:10 Pulse Rate 101 H 07/20/20 03:29 Respiratory Rate 14 07/20/20 03:29 Blood Pressure 162/94 07/20/20 03:29 Pulse Oximetry 99 07/20/20 03:29 MDM - Fall MDM Narrative: Medical decision making narrative: 45-year-old female presenting to the ER with left-sided pelvis and hip pain as well as left wrist pain following a fall. She has a left inferior pubic ramus fracture. She does not appear to have a fracture left wrist. She was given an injection of IM Dilaudid for pain control as she was crying on exam and very hypertensive this patient is a dialysis patient, and with her renal failure the Dilaudid hit her pretty hard. She became apneic a couple of times. To prevent this, she was given an injection of only 0.2 mg of IM Narcan. She did not desaturate her oxygen level on pulse ox following administration of Narcan. We kept her for several hours following to make sure that she would keep her oxygen level at an appropriate level on returning home. She will be prescribed a small amount of pain medication. She is instructed not to take any until she has cleared the Dilaudid. Discharge Plan Discharge Patient Disposition: Home Clinical Impression: Sprain and strain of left wrist Fracture of inferior pubic ramus Qualifiers: Encounter type: initial encounter Fracture type: closed Laterality: left Qualified Code(s): S32.592A - Other specified fracture of left pubis, initial encounter for closed fracture Condition: Stable Prescriptions: Continued hydrocodone-acetaminophen 5-325 mg tablet 1 tab PO Q4H PRN (Reason: pain) Qty: 12 RF: 0 No Action Januvia 100 mg tablet 100 mg PO DAILY RF: 0 alprazolam [Xanax] 0.25 mg tablet 0.25 mg PO BID PRN (Reason: Anxiety) RF: 0 ropinirole [Requip] 0.25 mg tablet 0.25 mg PO .at bedtime RF: 0 ondansetron HCl [Zofran] 4 mg tablet 4 mg PO Q8H RF: 0 lorazepam [Ativan] 1 mg tablet 0.5 mg PO TID PRN (Reason: Anxiety) RF: 0 prenat.vits,ashtyn,ins-gkuv-psskr Tablet 1 tab PO DAILY RF: 0 diphenhydramine HCl [Benadryl] 25 mg capsule 25 mg PO TID PRN (Reason: Itching) RF: 0 Benadryl Extra Strength 2-0.1 % cream 1 applic topical BID RF: 0 lorazepam 1 mg tablet 1 mg PO TID PRN (Reason: Anxiety) RF: 0 prochlorperazine maleate [Compazine] 10 mg tablet 10 mg PO QID PRN (Reason: Nausea) RF: 0 gentamicin 0.1 % cream 1 applic topical TID RF: 0 (DME) Cam Walker See Rx Instructions .ROUTE .MEDSUPPLY Qty: 1 RF: 0 acetaminophen 325 mg capsule 325 mg PO QID PRN (Reason: Pain) RF: 0 pantoprazole 40 mg tablet,delayed release (DR/EC) 40 mg PO BID RF: 0 (DME) blood-glucose meter [OneTouch UltraMini] Kit See Rx Instructions .ROUTE .MEDSUPPLY Qty: 1 RF: 0 citalopram 40 mg tablet 40 mg PO DAILY RF: 0 (DME) Diabetic Shoes Qty: 1 RF: 0 sodium bicarbonate 650 mg tablet 650 mg PO DAILY PRN (Reason: Dialysis) RF: 0 furosemide 80 mg tablet 40 mg PO DAILY RF: 0 triamcinolone acetonide 0.1 % ointment 1 applic topical BID Qty: 453.6 RF: 0 ergocalciferol (vitamin D2) [Drisdol] 1,250 mcg (50,000 unit) capsule 1,250 mcg PO .Weekly RF: 0 carvedilol [Coreg] 3.125 mg tablet 3.125 mg PO BID RF: 0 doxycycline hyclate 100 mg capsule 100 mg PO BID Qty: 20 RF: 0 diphenoxylate-atropine [Lomotil] 2.5-0.025 mg Tablet 1 tab PO DAILY PRN (Reason: Diarrhea) RF: 0 insulin lispro [Humalog U-100 Insulin] 100 unit/mL Solution 5 unit SUBCUT BID PRN (Reason: Blood Sugar >200) RF: 0 Eliquis 2.5 mg Tablet 2.5 mg PO BID RF: 0 Hold Instructions: Resume on 12/14/19. Ozempic 1 mg/dose (2 mg/1.5 mL) Pen Injector 1 mg SUBCUT Q7D RF: 0 Discharge Orders: Discharge ED (Routine); Ordered 07/19/20 Ordered By: Quoc Bernstein Referrals: Herber Hussein MD [Primary Care Provider] - 4-7 days Discharge Diet: Advance as tolerated Discharge Activity: Limit activity as instructed Patient Instructions: Wrist Injury (ED), Pelvic Fracture (ED), Opioid Safety Activity Restrictions/Additional Instructions: Use a walker or crutches to bear weight until you can comfortably do so without. Pain medication as directed. You should have your wrist reexamined and x-rayed in 7 days if it is still painful. Wear the brace you were given until that time. Coding Level of Care Code ED Junior Staff Accountant for Chg Fwd Exam Detailed
[2020-07-20 01:10] VITALS: O2SAT 94
--- NOTE | 2020-07-20 03:22 | XRR_ITS ---
PROCEDURE INFORMATION: Exam: XR Chest Exam date and time: 07/20/2020 12:13 AM Age: 45 years old Clinical indication: Injury or trauma; Fall; Blunt trauma (contusions or hematomas); Injury date: 07/19/2020; Injury details: PT fell from standing position TECHNIQUE: Imaging protocol: XR of the chest. Views: 1 view. COMPARISON: CT chest abd pel w con* 01/11/2020 9:48 AM FINDINGS: Tubes, catheters and devices: Stable large caliber double lumen right central line with tip over the distal SVC and proximal right atrium. Stable left Mediport catheter. Lungs: Unremarkable. No consolidation. Pleural spaces: Unremarkable. No pleural effusion. No pneumothorax. Heart/Mediastinum: Unremarkable. No cardiomegaly. Bones/joints: Unremarkable. XR/XR chest 1V portable [id number] IMPRESSION: No acute findings.
[2020-07-20 03:25] VITALS: PULSE 100; RESP 15; O2SAT 99
[2020-07-20 03:29] VITALS: BP 162/94; PULSE 101; RESP 14; O2SAT 99
== END 2020-07-20 03:32 | disposition home or self-care (01) ==
PROVIDERS: Emergency Provider Emergency Medicine; PCP Family Medicine
DX: S32.592A Other specified fracture of left pubis, initial encounter for closed fracture (principal); S63.502A Unspecified sprain of left wrist, initial encounter; S66.912A Strain of unspecified muscle, fascia and tendon at wrist and hand level, left hand, initial encounter; Z79.01 Long term (current) use of anticoagulants; Z79.4 Long term (current) use of insulin; E11.22 Type 2 diabetes mellitus with diabetic chronic kidney disease; N18.6 End stage renal disease; Z85.048 Personal history of other malignant neoplasm of rectum, rectosigmoid junction, and anus; Z99.2 Dependence on renal dialysis; F17.210 Nicotine dependence, cigarettes, uncomplicated; W01.0XXA Fall on same level from slipping, tripping and stumbling without subsequent striking against object, initial encounter
CPT/HCPCS: 29125; 70450; 71045; 72192; 73100; 96372; 99283; J1170; J2310; J2405

== ENCOUNTER 2020-07-24 11:05 | Outpatient (CLI) | payer MEDICARE, MEDICAID, SELFPAY | END 2020-07-24 11:06 | disposition home or self-care (01) | LOC: WOUND 11:09 | PROVIDERS: PCP Family Medicine; Visit Provider Nurse Practitioner Family | DX: Z09 Encounter for follow-up examination after completed treatment for conditions other than malignant neoplasm (principal) | CPT/HCPCS: G0463 ==

== ENCOUNTER → 2020-08-06 10:27 | Outpatient (BNVA) | payer MEDICARE, MEDICAID, SELFPAY | PROVIDERS: PCP Family Medicine; Referring Provider Nurse Practitioner Family; Visit Provider Specialist | DX: S69.92XA Unspecified injury of left wrist, hand and finger(s), initial encounter (principal); X58.XXXA Exposure to other specified factors, initial encounter; Z96.641 Presence of right artificial hip joint | CPT/HCPCS: 72190; 73110 ==

== ENCOUNTER 2020-09-04 09:06 | Outpatient (CLI) | payer MEDICARE, MEDICAID, SELFPAY | END 2020-09-04 09:07 | disposition home or self-care (01) | LOC: WOUND 09:08 | PROVIDERS: PCP Family Medicine; Visit Provider Nurse Practitioner Family | DX: E11.621 Type 2 diabetes mellitus with foot ulcer (principal); L97.522 Non-pressure chronic ulcer of other part of left foot with fat layer exposed | CPT/HCPCS: 11042; G0463 ==

== ENCOUNTER 2020-09-11 10:10 | Outpatient (CLI) | payer MEDICARE, MEDICAID, SELFPAY | END 2020-09-11 10:11 | disposition home or self-care (01) | LOC: WOUND 10:12 | PROVIDERS: PCP Family Medicine; Visit Provider Nurse Practitioner Family | DX: E11.621 Type 2 diabetes mellitus with foot ulcer (principal); L97.521 Non-pressure chronic ulcer of other part of left foot limited to breakdown of skin | CPT/HCPCS: 11042 ==

== ENCOUNTER 2020-09-18 13:53 | Outpatient (CLI) | payer MEDICARE, MEDICAID, SELFPAY | END 2020-09-18 13:54 | disposition home or self-care (01) | LOC: WOUND 13:54 | PROVIDERS: PCP Family Medicine; Visit Provider Thoracic Surgery (Cardiothoracic Vascular Surgery) | DX: E11.621 Type 2 diabetes mellitus with foot ulcer (principal); L97.522 Non-pressure chronic ulcer of other part of left foot with fat layer exposed; L97.511 Non-pressure chronic ulcer of other part of right foot limited to breakdown of skin | CPT/HCPCS: 11042; 97597 ==

== ENCOUNTER 2020-09-25 15:00 | Outpatient (CLI) | payer MEDICARE, MEDICAID, SELFPAY | END 2020-09-25 15:01 | disposition home or self-care (01) | LOC: WOUND 15:01 | PROVIDERS: PCP Family Medicine; Visit Provider Thoracic Surgery (Cardiothoracic Vascular Surgery) | DX: Z09 Encounter for follow-up examination after completed treatment for conditions other than malignant neoplasm (principal) | CPT/HCPCS: 99212 ==

== ENCOUNTER 2020-10-06 20:23 | Emergency (ER) | payer MEDICARE, MEDICAID, SELFPAY ==
[2020-10-06 20:27] VITALS: PULSE 101; RESP 19; TEMP 36.9; O2SAT 85; BMI 20.3
--- NOTE | 2020-10-06 20:27 | XRR_ITS ---
PROCEDURE INFORMATION: Exam: XR Chest Exam date and time: 10/06/2020 8:27 PM Age: 45 years old Clinical indication: Cough and shortness of breath; Prior surgery; Surgery date: 6+ months; Surgery type: Port TECHNIQUE: Imaging protocol: XR of the chest. Views: 1 view. COMPARISON: CR XR chest 1V portable [id number] 07/20/2020 12:17 AM FINDINGS: Tubes, catheters and devices: Right central venous catheter tip over the right atrium. Left-sided Port-A-Cath. Lungs: Patchy right lung field mixed interstitial and airspace atelectasis versus infiltrate greatest in lower lobe. Pleural spaces: Unremarkable. No pleural effusion. No pneumothorax. Heart/Mediastinum: Unremarkable. No cardiomegaly. Bones/joints: Unremarkable. XR/XR chest 1V portable [id number] IMPRESSION: Patchy right lung field mixed interstitial and airspace atelectasis versus infiltrate greatest in lower lobe.
--- NOTE | 2020-10-06 20:27 | ECG_ITS ---
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 Measurements Intervals [place] Rate: 96 P: 54 [place]: 108 QRS: 9 QRSD: 98 T: 72 QT: 435 QTc: 552 Interpretive Statements SINUS RHYTHM WITH SHORT [place] INTERVAL POSSIBLE LEFT ATRIAL ENLARGEMENT [-0.1mV P WAVE IN V1/V2] LEFT VENTRICULAR HYPERTROPHY AND ST-T CHANGE Compared to ECG 02/28/2020 10:31:32 Left ventricular hypertrophy now present ST (T wave) deviation now present T-wave abnormality no longer present Possible ischemia no longer present Electronically Signed On 10-07-2020 16:44:41 CDT by Peyton Lopez M.D. [id number]
--- NOTE | 2020-10-06 20:29 | ED_ITS ---
HPI - SOB/Dyspnea General: Chief Complaint: COVID symptoms Stated Complaint: SOB Time Seen by Provider: 10/06/20 20:27 History of Present Illness: HPI Narrative: This patient is a 45-year-old female who presents to the emergency department with acute shortness of breath related to COVID-19. Patient states she was diagnosed 2 days ago. Patient is a dialysis patient from renal failure. Patient was on the dialysis machine getting dialysis when they notice her O2 sat was in the 80s. Patient has a history of anal cancer and has had multiple complications related to such. And now renal failure. Patient is also had a history of DVT. Patient's O2 sat on 3 L by nasal cannula upon arrival 97%. Will do medical evaluation treat as any MD elicited complaint: shortness of breath Timing: constant Severity: moderate Exacerbating factors: nothing Associated symptoms: Deny abdominal pain, chest pain, extremity pain, fever(s), lightheadedness, nausea, palpitations or vomiting Review of Systems General: Reports: 10 or more systems reviewed and unremarkable except in HPI and below Const: Reports: fatigue; Denies: fever(s), chills or body aches Eyes: Denies: change in vision or blurry vision ENMT: Denies: throat pain, hoarseness or mouth pain Card: Denies: chest pain, palpitations, irregular heart rhythm, edema, swelling of feet/ankles or lightheadedness Resp: Reports: dyspnea and non-productive cough; Denies: productive cough, wheezing or pain on inspiration GI: Denies: abdominal pain, nausea or vomiting : Denies: flank pain, difficulty voiding, dysuria, urinary frequency, urinary urgency or urinary hesitancy Musc: Denies: neck pain, back pain, extremity pain, extremity swelling, joint pain, joint swelling, joint redness, joint warmth or limited range of motion Skin/Breast: Denies: rash, pruritus, erythema or skin tenderness Neuro: Denies: headache(s), numbness in extremities or weakness in extremities Psych: Denies: anxiety or depression PFSH ED PFSH: Medical History Chronic anticoagulation Deep vein thrombosis (DVT) during Diabetes Diabetes mellitus End-stage renal disease Squamous cell carcinoma of anal canal Tachycardia Surgical History H/O colonoscopy H/O hand surgery History of hip surgery History of hysterectomy Peritoneal dialysis status Port-A-Cath in place S/P hemodialysis catheter insertion (01/09/20) Status post surgery (05/19/20) Removal of peritoneal dialysis catheter Family History Other Cancer Diabetes Denies family history of Anesthesia complication Bleeding disorder Social History Smoking and tobacco status: current every day smoker Alcohol intake: never Household members: family Marital status: Single Current occupational status: disabled History of recent travel: No Physical Exam Const: COMMON NORMALS: no acute distress, average body habitus, patient oriented x3, no limitations, healthy appearing, alert and well nourished HENMT: COMMON NORMALS: normocephalic, atraumatic, hearing grossly normal bilaterally, external ears normal, EAC's normal, TM's normal bilaterally, Normal external nose present, Normal nasal mucous membranes and turbinates present, moist oral mucous membranes, oropharynx normal, dentition normal and gingiva normal HEAD & SCALP: normocephalic and atraumatic NOSE: Normal external nose present and Normal nasal mucous membranes and turbinates present EXTERNAL EAR: Yes external ears normal EXTERNAL AUDITORY CANAL: EAC's normal TYMPANIC MEMBRANE: TM's normal bilaterally Neck/C-Spine: COMMON NORMALS: full ROM, no lymphadenopathy, supple, no meningeal signs, no JVD, Thyroid normal and No carotid bruits THYROID: Thyroid normal Chest: COMMONS NORMALS: normal inspection of the chest, normal palpation of entire chest wall, normal inspection of the breasts and normal palpation of the breasts Breast/axilla inspection: Yes normal inspection of the breasts BREAST/AXILLA PALPATION: Yes normal palpation of the breasts Resp: COMMON NORMALS: normal respiratory effort, No retractions, No use of accessory muscles and percussion normal AUSCULTATION: rhonchi PERCUSSION: percussion normal Cardio: COMMON NORMALS: no JVD, regular rate, regular rhythm, S1 normal heart sound present, S2 normal heart sound present, No gallops present (Cardio), No clicks present (Cardio), No murmurs present (Cardio), No rub (Cardio) and Peripheral pulses 2+ throughout RATE: regular rate RHYTHM: regular rhythm HEART SOUNDS: S1 normal heart sound present and S2 normal heart sound present PERIPHERAL PULSES: Peripheral pulses 2+ throughout GI: COMMON NORMALS: Normal to inspection, nondistended, normoactive bowel sounds present, Soft to palpation, non-tender, No hepatosplenomegaly present, no masses and no bruits PALPATION: Yes Soft to palpation and Yes No hepatosplenomegaly present : COMMON NORMALS: Yes no CVA tenderness, Yes normal external appearance, Yes normal appearance of the vagina, Yes normal appearance of the cervix, Yes normal bimanual exam, Yes No adnexal tenderness and Yes no masses BLADDER/KIDNEY EXAM: Yes no CVA tenderness BIMANUAL EXAM - VAGINA & UTERUS: Yes normal bimanual exam Back/Pelvis: COMMON NORMALS: no CVA tenderness, thoracic and lumbar spine normal to inspection, no thoracic nor lumbar tenderness, thoraco-lumbar ROM normal and straight leg raise negative bilaterally Extremity: COMMON NORMALS: normal to inspection, full ROM, capillary refill normal, no joint enlargement, no clubbing, cyanosis or edema, no calf tenderness and no pedal edema Neuro: COMMON NORMALS: patient oriented x3 SENSORIUM/ORIENTATION: Yes alert MENINGEAL SIGNS: Yes no meningeal signs Course Reevaluation(s): Reevaluation #1: Patient doing well. Chronic conditions are stable. Patient is requiring 2 L by nasal cannula. Due to COVID-19 infection. Patient was offered admission to the hospital patient is declined. Patient wishes to be discharged home. Patient does understand Covid precautions and she states she does. Continue with all home treatment. Patient will be discharged home with oxygen. Patient is to follow-up with primary care physician as instructed. Continue with dialysis as scheduled for Covid. Wear oxygen as prescribed. Return to the emergency department symptoms fail to improve or worsen. Patient states understanding again patient was offered admission but declines. Time: 23:09 Vital Signs: Vital signs: Vital Signs Temperature 98.4 F 10/06/20 20:27 Pulse Rate 104 H 10/06/20 21:00 Respiratory Rate 24 H 10/06/20 21:00 Pulse Oximetry 87 L 10/06/20 23:07 MDM - SOB/Dyspnea MDM Narrative: Medical decision making narrative: This patient is a 45-year-old female who presents to the emergency department with acute shortness of breath related to COVID-19. Patient states she was diagnosed 2 days ago. Patient is a dialysis patient from renal failure. Patient was on the dialysis machine getting dialysis when they notice her O2 sat was in the 80s. Patient has a history of anal cancer and has had multiple complications related to such. And now renal failure. Patient is also had a history of DVT. Patient's O2 sat on 3 L by nasal cannula upon arrival 97% Patient doing well. Chronic conditions are stable. Patient is requiring 2 L by nasal cannula. Due to COVID-19 infection. Patient was offered admission to the hospital patient is declined. Patient wishes to be discharged home. Patient does understand Covid precautions and she states she does. Continue with all home treatment. Patient will be discharged home with oxygen. Patient is to follow-up with primary care physician as instructed. Continue with dialysis as scheduled for Covid. Wear oxygen as prescribed. Return to the emergency department symptoms fail to improve or worsen. Patient states understanding again patient was offered admission but declines. Lab Data: Labs: Lab Results 10/06/20 10/06/20 10/06/20 Range/Units 21:00 21:51 21:51 WBC 2.8 L (4.0-10.0) 10^3/ uL RBC 3.63 L (4.1-5.3) 10^6/u L Hgb 12.5 (11.5-15.3) g/dL Hct 38.3 (37.0-47.0) % MCV 105.5 H (81-99) fL MCH 34.4 H (28.0-34.0) pg MCHC 32.6 (30.0-36.0) g/dL RDW 16.0 H (12.1-15.1) % Plt Count 119 L (130-400) 10^3/c mm MPV 10.9 H (7.4-10.4) fL Neut % (Auto) 64.6 % Lymph % (Auto) 27.1 % Vermilion % (Auto) 7.5 % Eos % (Auto) 0.0 % Baso % (Auto) 0.4 % Neut # (Auto) 1.81 (1.8-7.7) 10^3/u L Lymph # (Auto) 0.8 (0.8-4.8) 10^3/u L [place] # (Auto) 0.2 (0.2-0.9) 10^3/u L Eos # (Auto) 0.0 (0.0-0.8) 10^3/u L Baso # (Auto) 0.0 (0.0-0.1) 10^3/u L Nucleated RBC % (a uto) 0 % Nucleated RBCs # 0.0 /100WBC PT 14.00 (12.1-14.9) SECO NDS INR 1.05 (0.8-1.2) APTT 43.5 H (23.9-36.7) SECO NDS Fibrinogen 543 H (174-498) mg/dL D-Dimer 2.97 H (0-0.59) ug/mIFE U Specimen Type Arterial Sample Site Radial, left ABG pH 7.58 H* (7.35-7.45) ABG pCO2 31.7 L (35-45) mmHg ABG pO2 54.6 L (80.0-100.0) mmH g ABG HCO3 30.0 H (22-26) mmol/L ABG Base Excess 8.1 H (-2.0-2.0) mmol/ L Benjamin Test Pos Hematocrit 36.4 L (37-47) % O2 Delivery Device Nc O2 Liters/Min 3.0 % Mechanical Car Checker ID [email or web address] Sodium (136-145) mmol/L Potassium (3.5-5.1) mmol/L Chloride (98-107) mmol/L Carbon Dioxide (22-29) mmol/L Anion Gap (5-19) BUN (6-20) mg/dL Creatinine (0.5-0.9) mg/dL GFR Calculation (90-130) mL/min Glucose (65-115) mg/dL Calculated Osmolal ity (285-295) mOsm/k g Lactic Acid (0.5-2.2) mmol/L Calcium (8.5-10.5) mg/dL Total Bilirubin (0.15-1.2) mg/dL AST (0-32) U/L ALT (0-33) U/L Alkaline Phosphata se (35-105) IU/L Troponin T Gen 5 n g/L (0-10) ng/L C-Reactive Protein (0.0-4.9) mg/L NT-Pro-B Natriuret Pep (0-125) pg/mL Total Protein (6.6-8.7) g/dL Albumin (3.5-5.2) g/dL Globulin (1.3-4.6) g/dL Procalcitonin (0-0.5) ng/mL 10/06/20 10/06/20 10/06/20 Range/Units 21:51 21:51 21:51 WBC (4.0-10.0) 10^3/ uL RBC (4.1-5.3) 10^6/u L Hgb (11.5-15.3) g/dL Hct (37.0-47.0) % MCV (81-99) fL MCH (28.0-34.0) pg MCHC (30.0-36.0) g/dL RDW (12.1-15.1) % Plt Count (130-400) 10^3/c mm MPV (7.4-10.4) fL Neut % (Auto) % Lymph % (Auto) % Vermilion % (Auto) % Eos % (Auto) % Baso % (Auto) % Neut # (Auto) (1.8-7.7) 10^3/u L Lymph # (Auto) (0.8-4.8) 10^3/u L Vermilion # (Auto) (0.2-0.9) 10^3/u L Eos # (Auto) (0.0-0.8) 10^3/u L Baso # (Auto) (0.0-0.1) 10^3/u L Nucleated RBC % (a uto) % Nucleated RBCs # /100WBC PT (12.1-14.9) SECO NDS INR (0.8-1.2) APTT (23.9-36.7) SECO NDS Fibrinogen (174-498) mg/dL D-Dimer (0-0.59) ug/mIFE U Specimen Type Sample Site ABG pH (7.35-7.45) ABG pCO2 (35-45) mmHg ABG pO2 (80.0-100.0) mmH g ABG HCO3 (22-26) mmol/L ABG Base Excess (-2.0-2.0) mmol/ L Benjamin Test Hematocrit (37-47) % O2 Delivery Device O2 Liters/Min % Mechanical Car Checker ID Sodium 139 (136-145) mmol/L Potassium 3.8 (3.5-5.1) mmol/L Chloride 97 L (98-107) mmol/L Carbon Dioxide 26 (22-29) mmol/L Anion Gap 19.8 H (5-19) BUN 11 (6-20) mg/dL Creatinine 1.4 H (0.5-0.9) mg/dL GFR Calculation 40.5 L (90-130) mL/min Glucose 72 (65-115) mg/dL Calculated Osmolal ity 286 (285-295) mOsm/k g Lactic Acid 1.8 (0.5-2.2) mmol/L Calcium 7.7 L (8.5-10.5) mg/dL Total Bilirubin 0.5 (0.15-1.2) mg/dL AST 45 H (0-32) U/L ALT 14 (0-33) U/L Alkaline Phosphata se 76 (35-105) IU/L Troponin T Gen 5 n g/L 27 H (0-10) ng/L C-Reactive Protein 81.6 H (0.0-4.9) mg/L NT-Pro-B Natriuret Pep 1622 H (0-125) pg/mL Total Protein 6.0 L (6.6-8.7) g/dL Albumin 3.7 (3.5-5.2) g/dL Globulin 2.3 (1.3-4.6) g/dL Procalcitonin 0.21 (0-0.5) ng/mL Imaging Data^: CXR: Attestation: I personally reviewed and interpreted this imaging study as follows: Radiologist's impression: IMPRESSION: Patchy right lung field mixed interstitial and airspace atelectasis versus infiltrate greatest in lower lobe. EKG Data^: EKG 1: Attestation: I personally reviewed and interpreted this EKG as follows: EKG Interpretation Date: 10/06/20 EKG interpretation time: 20:36 Prior EKG tracings: not available for review Interpretation: Sinus rhythm with a short LA interval heart rate 96 left atrial enlargement left ventricular hypertrophy chronic abnormal EKG Discharge Plan Discharge Patient Disposition: Home Clinical Impression: Shortness of breath, COVID-19, Suspected severe acute respiratory syndrome coronavirus 2 (SARS-CoV-2) infection, Dialysis patient Condition: Stable Prescriptions: No Action Januvia 100 mg tablet 100 mg PO DAILY RF: 0 alprazolam [Xanax] 0.25 mg tablet 0.25 mg PO BID PRN (Reason: Anxiety) RF: 0 ropinirole [Requip] 0.25 mg tablet 0.25 mg PO .at bedtime RF: 0 ondansetron HCl [Zofran] 4 mg tablet 4 mg PO Q8H RF: 0 lorazepam [Ativan] 1 mg tablet 0.5 mg PO TID PRN (Reason: Anxiety) RF: 0 prenat.vits,ashtyn,zqi-urdw-rnxtn Tablet 1 tab PO DAILY RF: 0 diphenhydramine HCl [Benadryl] 25 mg capsule 25 mg PO TID PRN (Reason: Itching) RF: 0 Benadryl Extra Strength 2-0.1 % cream 1 applic topical BID RF: 0 lorazepam 1 mg tablet 1 mg PO TID PRN (Reason: Anxiety) RF: 0 prochlorperazine maleate [Compazine] 10 mg tablet 10 mg PO QID PRN (Reason: Nausea) RF: 0 gentamicin 0.1 % cream 1 applic topical TID RF: 0 acetaminophen 325 mg capsule 325 mg PO QID PRN (Reason: Pain) RF: 0 pantoprazole 40 mg tablet,delayed release (DR/EC) 40 mg PO BID RF: 0 (DME) blood-glucose meter [OneTouch UltraMini] Kit See Rx Instructions .ROUTE .MEDSUPPLY Qty: 1 RF: 0 citalopram 40 mg tablet 40 mg PO DAILY RF: 0 (DME) Diabetic Shoes Qty: 1 RF: 0 sodium bicarbonate 650 mg tablet 650 mg PO DAILY PRN (Reason: Dialysis) RF: 0 furosemide 80 mg tablet 40 mg PO DAILY RF: 0 triamcinolone acetonide 0.1 % ointment 1 applic topical BID Qty: 453.6 RF: 0 ergocalciferol (vitamin D2) [Drisdol] 1,250 mcg (50,000 unit) capsule 1,250 mcg PO .Weekly RF: 0 carvedilol [Coreg] 3.125 mg tablet 3.125 mg PO BID RF: 0 doxycycline hyclate 100 mg capsule 100 mg PO BID Qty: 20 RF: 0 diphenoxylate-atropine [Lomotil] 2.5-0.025 mg Tablet 1 tab PO DAILY PRN (Reason: Diarrhea) RF: 0 insulin lispro [Humalog U-100 Insulin] 100 unit/mL Solution 5 unit SUBCUT BID PRN (Reason: Blood Sugar >200) RF: 0 Eliquis 2.5 mg Tablet 2.5 mg PO BID RF: 0 Hold Instructions: Resume on 01/11/20. Ozempic 1 mg/dose (2 mg/1.5 mL) Pen Injector 1 mg SUBCUT Q7D RF: 0 hydrocodone-acetaminophen 5-325 mg tablet 1 tab PO Q4H PRN (Reason: pain) Qty: 12 RF: 0 Discharge Orders: Discharge ED (Routine); Ordered 10/06/20 Ordered By: Sameer Pike Other Ambulatory Orders: DME: Oxygen (Order) Location: None Selected Ordered By: Sameer Pike Referrals: Herber Hussein MD [Primary Care Provider] - Discharge Diet: Advance as tolerated Discharge Activity: Resume usual activity Patient Instructions: Opioid Safety Activity Restrictions/Additional Instructions: Continue with Covid precautions. Follow-up with primary care physician as instructed. Oxygen as prescribed. Return to the emergency department symptoms fail to improve or worsen. Continue all home medication Coding Level of Care Code ED Barrel Raiser Helper for Chuy Fwcorby Exam Comprehensive
[2020-10-06] MEDS: albuterol 8 gm MDI 2 PUFF INHALATION (20:59)
[2020-10-06 21:00] VITALS: PULSE 104; RESP 24; O2SAT 96
[2020-10-06] MEDS: dexamethasone 4 mg/mL INJ 6 MG IVP (21:05)
[2020-10-06 21:06] LABS: ABG PCO2 31.7 mmHg (35-45); Arterial Blood Gas Hematocrit 36.4 % (37-47); Base Excess ABG 8.1 mmol/L (-2.0-2.0); Blood Gas Allen Test Pos; Blood Gas Sample Site Radial, left; Blood Gas Sample Type Arterial; Oxygen Device NC; PO2 ABG 54.6 mmHg (80.0-100.0)
[2020-10-06 21:08] LABS: ABG PH Result 7.58 (7.35-7.45)
[2020-10-06 21:30] VITALS: O2SAT 92
[2020-10-06 22:06] LABS: Basophils % 0.4 %; Hematocrit 38.3 % (37.0-47.0); Hemoglobin 12.5 g/dL (11.5-15.3); Lymphocytes # 0.8 10^3/uL (0.8-4.8); Lymphocytes % 27.1 %; Mean Corpuscular HGB Conc 32.6 g/dL (30.0-36.0); Mean Corpuscular Hemoglobin 34.4 pg (28.0-34.0); Mean Corpuscular Volume 105.5 fL (81-99); Mean Platelet Volume 10.9 fL (7.4-10.4); Monocytes # 0.2 10^3/uL (0.2-0.9); Monocytes % 7.5 %; Neutrophils # 1.81 10^3/uL (1.8-7.7); Neutrophils % 64.6 %; Nucleated Red Blood Cells % 0 %; Platelet Count 119 10^3/cmm (130-400); Red Blood Count 3.63 10^6/uL (4.1-5.3); White Blood Count 2.8 10^3/uL (4.0-10.0)
[2020-10-06 22:15] LABS: INR 1.05 (0.8-1.2)
[2020-10-06 22:16] LABS: Partial Thromboplastin Time 43.5 SECONDS (23.9-36.7)
[2020-10-06 22:17] LABS: Fibrinogen 543 mg/dL (174-498)
[2020-10-06 22:19] LABS: D Dimer 2.97 ug/mIFEU (0-0.59); Lactic Sepsis W/Reflex 1.8 mmol/L (0.5-2.2)
[2020-10-06 22:21] LABS: Troponin T (5th) Once 27 ng/L (0-10)
[2020-10-06 22:29] LABS: NT Pro B Type Natriuretic Pept 1622 pg/mL (0-125); Procalcitonin 0.21 ng/mL (0-0.5)
[2020-10-06 22:40] LABS: Alanine Aminotransferase 14 U/L (0-33); Albumin Level 3.7 g/dL (3.5-5.2); Alkaline Phosphatase 76 IU/L (35-105); Anion Gap 19.8 (5-19); Aspartate Amino Transferase 45 U/L (0-32); Blood Urea Nitrogen 11 mg/dL (6-20); C Reactive Protein 81.6 mg/L (0.0-4.9); Calcium 7.7 mg/dL (8.5-10.5); Carbon Dioxide 26 mmol/L (22-29); Chloride 97 mmol/L (98-107); Globulin 2.3 g/dL (1.3-4.6); Glomerular Filtration Rate 40.5 mL/min (90-130); Glucose 72 mg/dL (65-115); Osmolality Calculated 286 mOsm/kg (285-295); Potassium 3.8 mmol/L (3.5-5.1); Sodium 139 mmol/L (136-145); Total Bilirubin 0.5 mg/dL (0.15-1.2)
[2020-10-06 22:46] LABS: Creatinine Clr Calc Pharmacy 51.3313
[2020-10-06 23:07] VITALS: O2SAT 87
[2020-10-06 23:30] VITALS: BP 125/67; PULSE 99; RESP 18; O2SAT 93
[2020-10-06 23:53] LABS: Influenza A by IFA Negative (Negative); Influenza B by IFA Negative (Negative)
[2020-10-07 00:47] VITALS: BP 136/75; PULSE 95; RESP 19; TEMP 36.9; O2SAT 94
== END 2020-10-07 00:51 | disposition home or self-care (01) ==
PROVIDERS: Emergency Provider Emergency Medicine; PCP Family Medicine
DX: U07.1 COVID-19 (principal); E11.22 Type 2 diabetes mellitus with diabetic chronic kidney disease; N18.6 End stage renal disease; F17.200 Nicotine dependence, unspecified, uncomplicated; Z79.4 Long term (current) use of insulin; Z79.01 Long term (current) use of anticoagulants; Z86.718 Personal history of other venous thrombosis and embolism; Z99.2 Dependence on renal dialysis
CPT/HCPCS: 36415; 36600; 71045; 80053; 82803; 83605; 83880; 84145; 84484; 85025; 85378; 85384; 85610; 85730; 86140; 87040; 87804; 93005; 94640; 96374; 99284; J1100; J3535

== ENCOUNTER 2020-10-27 11:24 | Outpatient (CLI) | payer MEDICARE, MEDICAID, SELFPAY ==
--- NOTE | 2020-10-27 13:09 | ONC FU_ITS ---
Dr. Damico follow up note Patient: Bharati Anthony Unit #: [id number]: [id number] Dicatated By: Cyndy Damico M.D.Date of Visit:Oct 27, 2020 Onc Med Follow-up/Prog Note History of Present Illness: Ms. Bharati Anthony, is a 45-year-old female with end-stage renal disease on peritoneal dialysis, start noticing blood in her stool around May or June 2019, initially blood was mixed with stool but then recently, noticed large amount of fresh blood per rectum she was referred to Dr. Escoto for evaluation and patient underwent colonoscopy on December 13, 2019 which showed none obstructing, small size, infiltrating, malignant appearing mass adjacent to some more polypoid appearing areas was seen just inside the anal verge. There was stigmata of bleeding from the mass. Multiple biopsies were obtained and final pathology report came back well-differentiated, nonkeratinizing invasive squamous cell carcinoma, p16 positive Patient denies any pelvic pain, denies any jaundice, denies any hemoptysis or hematemesis, patient has history of off-and-on constipation, thought it was due to peritoneal dialysis. Which was started in May 2019 for progressive renal insufficiency. Patient still makes urine. Denies any weight loss, but generalized weakness and and she has history of iron deficiency, which was multifactorial including due to renal failure, as per patient in hemodialysis clinic she used to get IV iron. Patient has history of anal intercourse, but as per patient it was for a brief period. Never been tested for HIV. Smoke about a pack a day since age 14. Denies alcohol use CT PET scan was ordered which is due on January 25, 2020. also switched to hemodialysis from peritoneal dialysis, CT PET scan done on January 24, 2020 showed an anal canal mass with increased FDG and 2 distinct left-sided presacral lymph nodes with evidence of metastatic involvement. No distant mets seen. Incidental finding of right hip total replacement with associated muscle increase of metabolic activity. And physiological increase of metabolic activity from mid through distal esophagus. Started on combined chemoradiation with mitomycin/5-FU on February 25, 2020 Received second and final cycle of chemotherapy with mitomycin/5-FU on Mar 31, 2020 Completed combined chemoradiation on April 11, 2020 Came for follow-up, denies any specific complaints, no fever chills, no nausea or vomiting, no diarrhea constipation, no melena or hematochezia, no hemoptysis hematemesis, no jaundice, no pain in anal area, not being followed by Dr. Toney, on 3 monthly basis and next appointment is in November 2020. Patient is also undergoing hemodialysis 3 times a week for chronic renal failure. Medications: Acetaminophen 1 - 2 Tablet (of 500 mg) Oral PRN, CeleXA 1 Tablet (of 40 mg) Tablet Oral daily, Colace 1 Capsule (of 100 mg) Oral b.i.d. PRN, Coreg 1 Tablet Oral b.i.d., Eliquis 1 Tablet (of 2.5 mg) Oral b.i.d., Furosemide 1 Tablet (of 40 mg) Oral daily on ,, HumaLOG 5 Units (of 100 Units/mL) Subcutaneous b.i.d. PRN, Januvia 1 Tablet (of 100 mg) Oral daily, Klor-Con M20 1 (20 meq) Tablet, controlled release Oral daily, LORazepam 0.5 - 1 Tablet (of 1 mg) Oral t.i.d. PRN, Metoprolol Tartrate 1 Tablet (of 100 mg) Oral daily, Ozempic (1 MG/DOSE) 1 mg Subcutaneous q 7 days, Pantoprazole Sodium 1 Tablet (of 40 mg) Tablet, enteric coated Oral b.i.d., Prochlorperazine Maleate 1 Tablet (of 10 mg) Oral q 4 hours PRN, Promethazine HCl 1 Tablet (of 25 mg) Oral PRN, RenaPlex-D 1 Tablet Oral daily, Senno 1 - 2 Tablet (of 8.6 mg) Oral daily PRN, Xanax 1 Tablet Oral PRN Allergies: adhesives, Cephalosporins, and Latex. Review of Systems: Review of Systems is not available for this patient. Vital Signs: Performed on Oct 27, 2020 11:35 Height - 69.00 in Weight - 145.0 lbs (HIGH) BSA - 1.80 sq.m BMI - 21.41 Temperature - 97.8 F (LOW) Pulse - 110 /min (HIGH) Respiration - 18 /min BP - 110/78 mm(hg) O2 Sat - 99 % Pain - 0 Performance Status: 0 - Fully active, able to carry on all predisease activities without restrictions. (ECOG) Physical Examination: ENMT - No mouth sores, no thrush, no jaundice, Respiratory - Lungs are clear to auscultation, Cardiovascular - Regular rate and rhythm of heart, Abdomen - Soft, bowel sounds present, Extremities - No visible edema. Lab/Imaging: Test performed on Jun 25, 2020 00:00 % Iron Saturation 36 % Glucose 195 mg/dL Phosphorous 4.8 mg/dL Vitamin D (25-Hydroxy) 37.3 ng/mL BUN 28 mg/dL Iron, Total 80 mcg/dL Creatinine 2.85 mg/dL TIBC 224 mcg/dL Cr Clearance (Est) 26.67 mL/min Sodium 141 mmol/L Potassium 4.0 mmol/L Chloride 107 mmol/L CO2 23 mmol/L Calcium 9.0 mg/dL Protein, Total 6.8 g/dL Albumin 4.0 g/dL Globulin 2.8 g/dL WBC 4.97 10^9/L RBC 3.44 10^12/L HGB 11.9 g/dL HCT 36.8 % MCV 107 fl MCH 34.6 pg MCHC 32.4 g/dL RDW 16.2 % Platelet Count 177 10^9/L Manual Lymphocytes 15.7 % Manual Monocytes 3.9 % Manual Eosinophils 8.7 % Manual Basophils 1.0 % Test performed on May 21, 2020 00:00 Ferritin 788 ng/mL Magnesium 2.0 mg/dL PTH, Intact 334 pg/mL Alkaline Phosphatase 73 IU/L Hemoglobin A1C 4.4 % Impression: Well-differentiated, nonkeratinizing invasive squamous cell carcinoma, p16 positive, per colonoscopy done on December 13, 2019 which showed infiltrating, small size, nonobstructive malignant appearing mass adjacent to some more polypoid appearing areas was seen just inside the anal verge., Clinical stage IIIa (T2N1A), Follow-up CT PET scan done on January 24, 2020 showed FDG positive anal mass and 2 distinct left-sided presacral lymph nodes, no evidence of distant mets but there was incidental finding of physiological increased uptake in the distal to lower esophagus and uptake in the muscle around the right hip replacement Renal failure, on peritoneal dialysis since May 2019, Chronic smoking History of anemia, multifactorial Diabetes mellitus History of DVT left lower extremity. Started on combined chemoradiation with mitomycin/infusional 5-FU on February 24 and she completed first course on February 29, 2020.Second and final cycle of chemotherapy was given on March 31, 2020, Completed combined chemoradiation on April 10, 2020 Hypertension Plan: Discussed with patient regarding her disease status, clinically patient has no signs symptom suggestive of disease recurrence or progression in fact, she has been followed by Dr. Toney, in [place] as per patient she saw him in August at that time she was told there is no evidence of recurrence of disease and now next follow-up scheduled on 03 December 2020. Patient also undergoing hemodialysis 3 times a week for chronic renal insufficiency, patient has mild/moderate anemia which is multifactorial, most likely due to chronic renal disease, being followed by nephrology/PMD. As per patient she was due for her mammogram long time back so we will schedule her for mammogram and then she will return to clinic in 1 month if mammogram shows benign findings, will consider follow-up on as-needed basis as she is being closely followed by colorectal surgeon in [place] Signed By: Cyndy Damico M.D. <<Signature on File>>
== END 2020-10-27 11:25 | disposition home or self-care (01) ==
PROVIDERS: PCP Family Medicine; Visit Provider Internal Medicine Hematology & Oncology
DX: Z08 Encounter for follow-up examination after completed treatment for malignant neoplasm (principal); Z85.048 Personal history of other malignant neoplasm of rectum, rectosigmoid junction, and anus; N18.6 End stage renal disease; Z99.2 Dependence on renal dialysis; F17.210 Nicotine dependence, cigarettes, uncomplicated; D63.1 Anemia in chronic kidney disease; E11.22 Type 2 diabetes mellitus with diabetic chronic kidney disease; Z86.718 Personal history of other venous thrombosis and embolism; Z79.01 Long term (current) use of anticoagulants; I12.0 Hypertensive chronic kidney disease with stage 5 chronic kidney disease or end stage renal disease; Z79.899 Other long term (current) drug therapy
CPT/HCPCS: 99214

== ENCOUNTER 2020-10-29 13:24 | Outpatient (CLI) | payer MEDICARE, MEDICAID, SELFPAY | END 2020-10-29 13:25 | disposition home or self-care (01) | LOC: WOUND 13:25 | PROVIDERS: PCP Family Medicine; Visit Provider Thoracic Surgery (Cardiothoracic Vascular Surgery) | DX: E11.621 Type 2 diabetes mellitus with foot ulcer (principal); L97.422 Non-pressure chronic ulcer of left heel and midfoot with fat layer exposed; F17.210 Nicotine dependence, cigarettes, uncomplicated | CPT/HCPCS: 11042; G0463 ==

== ENCOUNTER 2020-11-04 13:17 | Outpatient (CLI) | payer MEDICARE, MEDICAID, SELFPAY | END 2020-11-04 13:18 | disposition home or self-care (01) | LOC: WOUND 13:19 | PROVIDERS: PCP Family Medicine; Visit Provider Thoracic Surgery (Cardiothoracic Vascular Surgery) | DX: E11.621 Type 2 diabetes mellitus with foot ulcer (principal); L97.422 Non-pressure chronic ulcer of left heel and midfoot with fat layer exposed; F17.210 Nicotine dependence, cigarettes, uncomplicated | CPT/HCPCS: 11042 ==

== ENCOUNTER 2020-11-10 13:45 | Outpatient (CLI) | payer MEDICARE, MEDICAID, SELFPAY ==
--- NOTE | 2020-11-10 13:52 | MM_ITS ---
WS: [id number] BILATERAL DIGITAL SCREENING MAMMOGRAPHY WITH CAD CLINICAL INFORMATION: SCREENING HISTORY: Screening mammogram. No current complaints. COMPARISON: None. TECHNIQUE: Bilateral CC and MLO views. FINDINGS: Scattered fibroglandular densities bilaterally. A few incidental punctate calcifications left breast. No suspicious focal mass, asymmetry, calcifications, or architectural distortion. No evidence of mal ignancy. MM/[id number] IMPRESSION: BI-RADS: 2-Benign FOLLOW UP: 1 Year Follow-up Recommend return to annual screening mammography.
== END 2020-11-10 13:46 | disposition home or self-care (01) ==
LOC: RADSHAW 13:50
PROVIDERS: PCP Family Medicine; Visit Provider Internal Medicine Hematology & Oncology
DX: Z12.31 Encounter for screening mammogram for malignant neoplasm of breast (principal)
CPT/HCPCS: 77067

== ENCOUNTER 2020-11-11 08:37 | Outpatient (CLI) | payer MEDICARE, MEDICAID, SELFPAY | END 2020-11-11 08:38 | disposition home or self-care (01) | LOC: WOUND 08:39 | PROVIDERS: PCP Family Medicine; Visit Provider Nurse Practitioner Family | DX: I96 Gangrene, not elsewhere classified (principal); E11.621 Type 2 diabetes mellitus with foot ulcer; L97.422 Non-pressure chronic ulcer of left heel and midfoot with fat layer exposed; F17.210 Nicotine dependence, cigarettes, uncomplicated | CPT/HCPCS: 11042 ==

== ENCOUNTER 2020-11-18 09:24 | Outpatient (CLI) | payer MEDICARE, MEDICAID, SELFPAY | END 2020-11-18 09:25 | disposition home or self-care (01) | LOC: WOUND 09:25 | PROVIDERS: PCP Family Medicine; Visit Provider Thoracic Surgery (Cardiothoracic Vascular Surgery) | DX: I96 Gangrene, not elsewhere classified (principal); E11.621 Type 2 diabetes mellitus with foot ulcer; L97.422 Non-pressure chronic ulcer of left heel and midfoot with fat layer exposed; F17.210 Nicotine dependence, cigarettes, uncomplicated | CPT/HCPCS: 11042 ==

== ENCOUNTER 2020-11-20 16:04 | Outpatient (CLI) | payer MEDICARE, MEDICAID, SELFPAY | END 2020-11-20 16:05 | disposition home or self-care (01) | LOC: WOUND 16:05 | PROVIDERS: PCP Family Medicine; Visit Provider Nurse Practitioner Family | DX: E11.621 Type 2 diabetes mellitus with foot ulcer (principal); L97.429 Non-pressure chronic ulcer of left heel and midfoot with unspecified severity; F17.210 Nicotine dependence, cigarettes, uncomplicated | CPT/HCPCS: 29445 ==

== ENCOUNTER 2020-11-25 10:19 | Outpatient (CLI) | payer MEDICARE, MEDICAID, SELFPAY | END 2020-11-25 10:20 | disposition home or self-care (01) | LOC: WOUND 10:20 | PROVIDERS: PCP Family Medicine; Visit Provider Emergency Medicine | DX: E11.621 Type 2 diabetes mellitus with foot ulcer (principal); L97.422 Non-pressure chronic ulcer of left heel and midfoot with fat layer exposed; F17.210 Nicotine dependence, cigarettes, uncomplicated | CPT/HCPCS: 11042; 87070; 87077; 87176; 87186; 87205; 99212 ==

== ENCOUNTER 2020-12-02 08:50 | Outpatient (CLI) | payer MEDICARE, MEDICAID, SELFPAY | END 2020-12-02 08:51 | disposition home or self-care (01) | LOC: WOUND 08:51 | PROVIDERS: PCP Family Medicine; Visit Provider Thoracic Surgery (Cardiothoracic Vascular Surgery) | DX: E11.621 Type 2 diabetes mellitus with foot ulcer (principal); L97.422 Non-pressure chronic ulcer of left heel and midfoot with fat layer exposed; F17.210 Nicotine dependence, cigarettes, uncomplicated | CPT/HCPCS: 11042 ==

== ENCOUNTER 2020-12-09 08:53 | Outpatient (CLI) | payer MEDICARE, MEDICAID, SELFPAY | END 2020-12-09 08:54 | disposition home or self-care (01) | LOC: WOUND 08:54 | PROVIDERS: PCP Family Medicine; Visit Provider Thoracic Surgery (Cardiothoracic Vascular Surgery) | DX: E11.621 Type 2 diabetes mellitus with foot ulcer (principal); L97.421 Non-pressure chronic ulcer of left heel and midfoot limited to breakdown of skin; L97.419 Non-pressure chronic ulcer of right heel and midfoot with unspecified severity; F17.210 Nicotine dependence, cigarettes, uncomplicated | CPT/HCPCS: 97597; A6212 ==

== ENCOUNTER 2020-12-16 08:35 | Outpatient (CLI) | payer MEDICARE, MEDICAID, SELFPAY | END 2020-12-16 08:36 | disposition home or self-care (01) | LOC: WOUND 08:36 | PROVIDERS: PCP Family Medicine; Visit Provider Thoracic Surgery (Cardiothoracic Vascular Surgery) | DX: E11.621 Type 2 diabetes mellitus with foot ulcer (principal); L97.421 Non-pressure chronic ulcer of left heel and midfoot limited to breakdown of skin; F17.210 Nicotine dependence, cigarettes, uncomplicated | CPT/HCPCS: 97597; A6212 ==

== ENCOUNTER 2020-12-23 08:51 | Outpatient (CLI) | payer MEDICARE, MEDICAID, SELFPAY | END 2020-12-23 08:52 | disposition home or self-care (01) | LOC: WOUND 08:54 | PROVIDERS: PCP Family Medicine; Visit Provider Thoracic Surgery (Cardiothoracic Vascular Surgery) | DX: E11.621 Type 2 diabetes mellitus with foot ulcer (principal); L97.411 Non-pressure chronic ulcer of right heel and midfoot limited to breakdown of skin; L97.422 Non-pressure chronic ulcer of left heel and midfoot with fat layer exposed | CPT/HCPCS: 11042; 97597 ==

== ENCOUNTER 2020-12-30 08:55 | Outpatient (CLI) | payer MEDICARE, MEDICAID, SELFPAY | END 2020-12-30 08:56 | disposition home or self-care (01) | LOC: WOUND 08:58 | PROVIDERS: PCP Family Medicine; Visit Provider Thoracic Surgery (Cardiothoracic Vascular Surgery) | DX: E11.621 Type 2 diabetes mellitus with foot ulcer (principal); L97.411 Non-pressure chronic ulcer of right heel and midfoot limited to breakdown of skin; L97.422 Non-pressure chronic ulcer of left heel and midfoot with fat layer exposed; F17.210 Nicotine dependence, cigarettes, uncomplicated | CPT/HCPCS: 15275; 97597; A6212; A6250; Q4186 ==

== ENCOUNTER 2021-01-06 08:52 | Outpatient (CLI) | payer MEDICARE, MEDICAID, SELFPAY | END 2021-01-06 08:53 | disposition home or self-care (01) | LOC: WOUND 08:55 | PROVIDERS: PCP Family Medicine; Visit Provider Thoracic Surgery (Cardiothoracic Vascular Surgery) | DX: E11.621 Type 2 diabetes mellitus with foot ulcer (principal); L97.411 Non-pressure chronic ulcer of right heel and midfoot limited to breakdown of skin; L97.421 Non-pressure chronic ulcer of left heel and midfoot limited to breakdown of skin; F17.210 Nicotine dependence, cigarettes, uncomplicated | CPT/HCPCS: 15275; 97597; Q4186 ==

== ENCOUNTER 2021-01-13 09:17 | Outpatient (CLI) | payer MEDICARE, MEDICAID, SELFPAY | END 2021-01-13 09:18 | disposition home or self-care (01) | LOC: WOUND 09:19 | PROVIDERS: PCP Family Medicine; Visit Provider Thoracic Surgery (Cardiothoracic Vascular Surgery) | DX: E11.621 Type 2 diabetes mellitus with foot ulcer (principal); L97.411 Non-pressure chronic ulcer of right heel and midfoot limited to breakdown of skin; L97.421 Non-pressure chronic ulcer of left heel and midfoot limited to breakdown of skin; F17.210 Nicotine dependence, cigarettes, uncomplicated | CPT/HCPCS: 15275; 97597; A6250; Q4186 ==

== ENCOUNTER 2021-01-20 09:14 | Outpatient (CLI) | payer MEDICARE, MEDICAID, SELFPAY | END 2021-01-20 09:15 | disposition home or self-care (01) | LOC: WOUND 09:15 | PROVIDERS: Visit Provider Thoracic Surgery (Cardiothoracic Vascular Surgery) | DX: E11.621 Type 2 diabetes mellitus with foot ulcer (principal); L97.419 Non-pressure chronic ulcer of right heel and midfoot with unspecified severity; L97.429 Non-pressure chronic ulcer of left heel and midfoot with unspecified severity; F17.210 Nicotine dependence, cigarettes, uncomplicated | CPT/HCPCS: 15275; A6250; Q4186 ==

== ENCOUNTER 2021-01-27 09:12 | Outpatient (CLI) | payer MEDICARE, MEDICAID, SELFPAY | END 2021-01-27 09:13 | disposition home or self-care (01) | LOC: WOUND 09:14 | PROVIDERS: Visit Provider Nurse Practitioner Family | DX: E11.621 Type 2 diabetes mellitus with foot ulcer (principal); L97.411 Non-pressure chronic ulcer of right heel and midfoot limited to breakdown of skin; L97.422 Non-pressure chronic ulcer of left heel and midfoot with fat layer exposed; F17.210 Nicotine dependence, cigarettes, uncomplicated | CPT/HCPCS: 11042; 15275; A6250; Q4186 ==

== ENCOUNTER 2021-02-03 09:33 | Outpatient (CLI) | payer MEDICARE, MEDICAID, SELFPAY | END 2021-02-03 09:34 | disposition home or self-care (01) | LOC: WOUND 09:34 | PROVIDERS: Visit Provider Emergency Medicine | DX: E11.621 Type 2 diabetes mellitus with foot ulcer (principal); L97.412 Non-pressure chronic ulcer of right heel and midfoot with fat layer exposed; L97.422 Non-pressure chronic ulcer of left heel and midfoot with fat layer exposed; F17.210 Nicotine dependence, cigarettes, uncomplicated | CPT/HCPCS: 11042; 15275; A6250; Q4186 ==

== ENCOUNTER 2021-02-10 09:40 | Outpatient (CLI) | payer MEDICARE, MEDICAID, SELFPAY | END 2021-02-10 09:41 | disposition home or self-care (01) | LOC: WOUND 09:40 | PROVIDERS: Visit Provider Nurse Practitioner Family | DX: E11.621 Type 2 diabetes mellitus with foot ulcer (principal); L97.419 Non-pressure chronic ulcer of right heel and midfoot with unspecified severity; L97.422 Non-pressure chronic ulcer of left heel and midfoot with fat layer exposed; F17.210 Nicotine dependence, cigarettes, uncomplicated | CPT/HCPCS: 11042; 87070; 87077; 87176; 87186; 87205 ==

== ENCOUNTER 2021-02-17 09:46 | Outpatient (CLI) | payer MEDICARE, MEDICAID, SELFPAY | END 2021-02-17 09:47 | disposition home or self-care (01) | LOC: WOUND 09:47 | PROVIDERS: Visit Provider Nurse Practitioner Family | DX: E11.621 Type 2 diabetes mellitus with foot ulcer (principal); L97.411 Non-pressure chronic ulcer of right heel and midfoot limited to breakdown of skin; L97.429 Non-pressure chronic ulcer of left heel and midfoot with unspecified severity; L97.511 Non-pressure chronic ulcer of other part of right foot limited to breakdown of skin; F17.210 Nicotine dependence, cigarettes, uncomplicated | CPT/HCPCS: 11042 ==

== ENCOUNTER 2021-02-24 09:39 | Outpatient (CLI) | payer MEDICARE, MEDICAID, SELFPAY | END 2021-02-24 09:40 | disposition home or self-care (01) | LOC: WOUND 09:42 | PROVIDERS: Visit Provider Thoracic Surgery (Cardiothoracic Vascular Surgery) | DX: E11.621 Type 2 diabetes mellitus with foot ulcer (principal); L97.422 Non-pressure chronic ulcer of left heel and midfoot with fat layer exposed; S91.311A Laceration without foreign body, right foot, initial encounter; X58.XXXA Exposure to other specified factors, initial encounter; F17.210 Nicotine dependence, cigarettes, uncomplicated | CPT/HCPCS: 97597 ==

== ENCOUNTER 2021-03-03 09:01 | Outpatient (CLI) | payer MEDICARE, MEDICAID, SELFPAY | END 2021-03-03 09:02 | disposition home or self-care (01) | LOC: WOUND 09:02 | PROVIDERS: Visit Provider Thoracic Surgery (Cardiothoracic Vascular Surgery) | DX: E11.621 Type 2 diabetes mellitus with foot ulcer (principal); L97.422 Non-pressure chronic ulcer of left heel and midfoot with fat layer exposed; S91.311A Laceration without foreign body, right foot, initial encounter; X58.XXXA Exposure to other specified factors, initial encounter; F17.210 Nicotine dependence, cigarettes, uncomplicated | CPT/HCPCS: 11042; 97597 ==

== ENCOUNTER 2021-03-06 11:02 | Outpatient (CLI) | payer MEDICARE, MEDICAID, SELFPAY ==
--- NOTE | 2021-03-06 11:18 | XR_ITS ---
WS: [id number] Left foot, 3 views, 03/06/2021 Clinical Data: TYPE 2 DM WITH FOOT ULCER Comparison: Left foot, 09/15/2018. Findings: No fractures or dislocations are seen. No bone destruction or erosion is noted. There is soft tissue swelling over the head of the left fifth metatarsal. No osteomyelitis is present. XR/XR foot LT min 3V* [id number] Impression: Soft tissue swelling over the head of the left fifth metatarsal without bone de struction.
== END 2021-03-06 11:03 | disposition home or self-care (01) ==
PROVIDERS: Visit Provider Thoracic Surgery (Cardiothoracic Vascular Surgery)
DX: E11.621 Type 2 diabetes mellitus with foot ulcer (principal); M79.89 Other specified soft tissue disorders
CPT/HCPCS: 73630

== ENCOUNTER 2021-03-10 10:02 | Outpatient (CLI) | payer MEDICARE, MEDICAID, SELFPAY | END 2021-03-10 10:03 | disposition home or self-care (01) | LOC: WOUND 10:03 | PROVIDERS: Visit Provider Nurse Practitioner Family | DX: E11.621 Type 2 diabetes mellitus with foot ulcer (principal); L97.422 Non-pressure chronic ulcer of left heel and midfoot with fat layer exposed; L97.411 Non-pressure chronic ulcer of right heel and midfoot limited to breakdown of skin; F17.210 Nicotine dependence, cigarettes, uncomplicated | CPT/HCPCS: 11042 ==

== ENCOUNTER 2021-03-17 08:54 | Outpatient (CLI) | payer MEDICARE, MEDICAID, SELFPAY | END 2021-03-17 08:55 | disposition home or self-care (01) | LOC: WOUND 08:55 | PROVIDERS: Visit Provider Nurse Practitioner Family | DX: S91.311A Laceration without foreign body, right foot, initial encounter (principal); X58.XXXA Exposure to other specified factors, initial encounter; E11.621 Type 2 diabetes mellitus with foot ulcer; L97.421 Non-pressure chronic ulcer of left heel and midfoot limited to breakdown of skin; F17.210 Nicotine dependence, cigarettes, uncomplicated | CPT/HCPCS: 11042 ==

== ENCOUNTER 2021-03-23 10:04 | Outpatient (CLI) | payer MEDICARE, MEDICAID, SELFPAY | END 2021-03-23 10:05 | disposition home or self-care (01) | LOC: WOUND 10:05 | PROVIDERS: Visit Provider Thoracic Surgery (Cardiothoracic Vascular Surgery) | DX: S91.321A Laceration with foreign body, right foot, initial encounter (principal); X58.XXXA Exposure to other specified factors, initial encounter; E11.621 Type 2 diabetes mellitus with foot ulcer; L97.421 Non-pressure chronic ulcer of left heel and midfoot limited to breakdown of skin; F17.210 Nicotine dependence, cigarettes, uncomplicated | CPT/HCPCS: 97597 ==

== ENCOUNTER 2021-03-30 10:06 | Outpatient (CLI) | payer MEDICARE, MEDICAID, SELFPAY | END 2021-03-30 10:07 | disposition home or self-care (01) | LOC: WOUND 10:07 | PROVIDERS: Visit Provider Thoracic Surgery (Cardiothoracic Vascular Surgery) | DX: S91.321A Laceration with foreign body, right foot, initial encounter (principal); X58.XXXA Exposure to other specified factors, initial encounter; E11.621 Type 2 diabetes mellitus with foot ulcer; L97.421 Non-pressure chronic ulcer of left heel and midfoot limited to breakdown of skin; F17.210 Nicotine dependence, cigarettes, uncomplicated | CPT/HCPCS: 97597 ==

== ENCOUNTER 2021-04-06 10:17 | Outpatient (CLI) | payer MEDICARE, MEDICAID, SELFPAY | END 2021-04-06 10:18 | disposition home or self-care (01) | LOC: WOUND 10:19 | PROVIDERS: Visit Provider Nurse Practitioner Family | DX: E11.621 Type 2 diabetes mellitus with foot ulcer (principal); L97.422 Non-pressure chronic ulcer of left heel and midfoot with fat layer exposed; L97.419 Non-pressure chronic ulcer of right heel and midfoot with unspecified severity; F17.210 Nicotine dependence, cigarettes, uncomplicated | CPT/HCPCS: 11042 ==

== ENCOUNTER 2021-04-13 10:17 | Outpatient (CLI) | payer MEDICARE, MEDICAID, SELFPAY | END 2021-04-13 10:18 | disposition home or self-care (01) | LOC: WOUND 10:18 | PROVIDERS: Visit Provider Thoracic Surgery (Cardiothoracic Vascular Surgery) | DX: I96 Gangrene, not elsewhere classified (principal); S91.321A Laceration with foreign body, right foot, initial encounter; X58.XXXA Exposure to other specified factors, initial encounter; E11.621 Type 2 diabetes mellitus with foot ulcer; L97.421 Non-pressure chronic ulcer of left heel and midfoot limited to breakdown of skin; F17.210 Nicotine dependence, cigarettes, uncomplicated | CPT/HCPCS: 97597 ==

== ENCOUNTER 2021-04-20 09:52 | Outpatient (CLI) | payer MEDICARE, MEDICAID, SELFPAY | END 2021-04-20 09:53 | disposition home or self-care (01) | LOC: WOUND 09:54 | PROVIDERS: Visit Provider Thoracic Surgery (Cardiothoracic Vascular Surgery) | DX: S91.311A Laceration without foreign body, right foot, initial encounter (principal); X58.XXXA Exposure to other specified factors, initial encounter; E11.621 Type 2 diabetes mellitus with foot ulcer; L97.421 Non-pressure chronic ulcer of left heel and midfoot limited to breakdown of skin; F17.210 Nicotine dependence, cigarettes, uncomplicated | CPT/HCPCS: 97597 ==

== ENCOUNTER 2021-04-27 10:10 | Outpatient (RCR) | payer MEDICARE, MEDICAID, SELFPAY | END 2021-05-18 23:59 | disposition home or self-care (01) | LOC: WOUND 10:10 | PROVIDERS: Visit Provider Thoracic Surgery (Cardiothoracic Vascular Surgery) | DX: E11.621 Type 2 diabetes mellitus with foot ulcer; L97.421 Non-pressure chronic ulcer of left heel and midfoot limited to breakdown of skin; S91.311A Laceration without foreign body, right foot, initial encounter; X58.XXXA Exposure to other specified factors, initial encounter; F17.210 Nicotine dependence, cigarettes, uncomplicated | CPT/HCPCS: 11042; 97597 ==

== ENCOUNTER 2021-05-04 10:08 | Outpatient (CLI) | payer MEDICARE, MEDICAID, SELFPAY | END 2021-05-04 10:09 | disposition home or self-care (01) | LOC: WOUND 10:10 | PROVIDERS: Visit Provider Thoracic Surgery (Cardiothoracic Vascular Surgery) | DX: I96 Gangrene, not elsewhere classified (principal); S91.311A Laceration without foreign body, right foot, initial encounter; X58.XXXA Exposure to other specified factors, initial encounter; E11.621 Type 2 diabetes mellitus with foot ulcer; L97.421 Non-pressure chronic ulcer of left heel and midfoot limited to breakdown of skin; F17.210 Nicotine dependence, cigarettes, uncomplicated | CPT/HCPCS: 97597 ==

== ENCOUNTER 2021-05-11 11:00 | Outpatient (CLI) | payer MEDICARE, MEDICAID, SELFPAY | END 2021-05-11 11:01 | disposition home or self-care (01) | LOC: WOUND 11:01 | PROVIDERS: Visit Provider Thoracic Surgery (Cardiothoracic Vascular Surgery) | DX: E11.621 Type 2 diabetes mellitus with foot ulcer (principal); L97.422 Non-pressure chronic ulcer of left heel and midfoot with fat layer exposed; F17.210 Nicotine dependence, cigarettes, uncomplicated | CPT/HCPCS: 11042; 97597 ==

== ENCOUNTER 2021-05-18 10:39 | Outpatient (CLI) | payer MEDICARE, MEDICAID, SELFPAY | END 2021-05-18 10:40 | disposition home or self-care (01) | LOC: WOUND 10:41 | PROVIDERS: Visit Provider Thoracic Surgery (Cardiothoracic Vascular Surgery) | DX: E11.621 Type 2 diabetes mellitus with foot ulcer (principal); I96 Gangrene, not elsewhere classified; L97.412 Non-pressure chronic ulcer of right heel and midfoot with fat layer exposed; L97.422 Non-pressure chronic ulcer of left heel and midfoot with fat layer exposed; F17.210 Nicotine dependence, cigarettes, uncomplicated | CPT/HCPCS: 11042; 73630; 97597 ==

== ENCOUNTER 2021-05-18 11:23 | Outpatient (CLI) | payer MEDICARE, MEDICAID, SELFPAY ==
--- NOTE | 2021-05-18 11:48 | XRR_ITS ---
PROCEDURE INFORMATION: Exam: XR Right Foot Exam date and time: 05/18/2021 11:48 AM Age: 45 years old Clinical indication: Condition or disease; Other: Foot ulcer/; Additional info: Type ii dm w/foot ulcer/? Osteomyelitis TECHNIQUE: Imaging protocol: XR Right foot. Views: 3 or more views. COMPARISON: CR XR foot RT min 3V* [id number] 06/10/2020 4:15 PM FINDINGS: Bones/joints: Normal. Soft tissues: Normal. XR/XR foot RT min 3V* [id number] IMPRESSION: No acute findings.
== END 2021-05-18 11:24 | disposition home or self-care (01) ==
PROVIDERS: PCP Family Medicine; Visit Provider Thoracic Surgery (Cardiothoracic Vascular Surgery)
DX: E11.621 Type 2 diabetes mellitus with foot ulcer (principal)
CPT/HCPCS: 73630

== ENCOUNTER 2021-05-25 10:30 | Outpatient (CLI) | payer MEDICARE, MEDICAID, SELFPAY | END 2021-05-25 10:31 | disposition home or self-care (01) | LOC: WOUND 10:34 | PROVIDERS: PCP Family Medicine; Visit Provider Thoracic Surgery (Cardiothoracic Vascular Surgery) | DX: E11.621 Type 2 diabetes mellitus with foot ulcer (principal); L97.412 Non-pressure chronic ulcer of right heel and midfoot with fat layer exposed; L97.422 Non-pressure chronic ulcer of left heel and midfoot with fat layer exposed; F17.210 Nicotine dependence, cigarettes, uncomplicated | CPT/HCPCS: 11042; 97597 ==

== ENCOUNTER 2021-05-28 13:49 | Outpatient (CLI) | payer MEDICARE, MEDICAID, SELFPAY | END 2021-05-28 13:50 | disposition home or self-care (01) | LOC: WOUND 13:50 | PROVIDERS: PCP Family Medicine; Visit Provider Nurse Practitioner Family | DX: E11.621 Type 2 diabetes mellitus with foot ulcer (principal); I96 Gangrene, not elsewhere classified; L97.412 Non-pressure chronic ulcer of right heel and midfoot with fat layer exposed; L97.522 Non-pressure chronic ulcer of other part of left foot with fat layer exposed; F17.210 Nicotine dependence, cigarettes, uncomplicated; Z46.89 Encounter for fitting and adjustment of other specified devices; R26.89 Other abnormalities of gait and mobility | CPT/HCPCS: 87070; 87077; 87176; 87186; 87205; 97760; 99213; A6219 ==

== ENCOUNTER 2021-05-28 14:53 | Outpatient (CLI) | payer MEDICARE, MEDICAID, SELFPAY | END 2021-05-28 14:54 | disposition home or self-care (01) | LOC: SPT 14:55 | PROVIDERS: PCP Family Medicine; Visit Provider Thoracic Surgery (Cardiothoracic Vascular Surgery) | DX: Z46.89 Encounter for fitting and adjustment of other specified devices (principal); R26.89 Other abnormalities of gait and mobility | CPT/HCPCS: 97760 ==

== ENCOUNTER 2021-06-01 10:23 | Outpatient (CLI) | payer MEDICARE, MEDICAID, SELFPAY | END 2021-06-01 10:24 | disposition home or self-care (01) | LOC: WOUND 10:24 | PROVIDERS: PCP Family Medicine; Visit Provider Thoracic Surgery (Cardiothoracic Vascular Surgery) | DX: E11.621 Type 2 diabetes mellitus with foot ulcer (principal); F17.210 Nicotine dependence, cigarettes, uncomplicated; L97.412 Non-pressure chronic ulcer of right heel and midfoot with fat layer exposed | CPT/HCPCS: 97597 ==

== ENCOUNTER 2021-06-08 10:15 | Outpatient (CLI) | payer MEDICARE, MEDICAID, SELFPAY | END 2021-06-08 10:16 | disposition home or self-care (01) | LOC: WOUND 10:17 | PROVIDERS: PCP Family Medicine; Visit Provider Thoracic Surgery (Cardiothoracic Vascular Surgery) | DX: E11.621 Type 2 diabetes mellitus with foot ulcer (principal); L97.422 Non-pressure chronic ulcer of left heel and midfoot with fat layer exposed; L97.521 Non-pressure chronic ulcer of other part of left foot limited to breakdown of skin; I96 Gangrene, not elsewhere classified; F17.210 Nicotine dependence, cigarettes, uncomplicated | CPT/HCPCS: 97597 ==

== ENCOUNTER → 2021-06-15 10:08 | Outpatient (BNVA) | payer MEDICARE, MEDICAID, SELFPAY | PROVIDERS: PCP Family Medicine; Visit Provider Nurse Practitioner Family | DX: E11.621 Type 2 diabetes mellitus with foot ulcer (principal); L97.412 Non-pressure chronic ulcer of right heel and midfoot with fat layer exposed; L97.521 Non-pressure chronic ulcer of other part of left foot limited to breakdown of skin; I96 Gangrene, not elsewhere classified | CPT/HCPCS: 11042 ==

== ENCOUNTER → 2021-06-22 10:26 | Outpatient (BNVA) | payer MEDICARE, MEDICAID, SELFPAY | PROVIDERS: PCP Family Medicine; Visit Provider Thoracic Surgery (Cardiothoracic Vascular Surgery) | DX: E11.621 Type 2 diabetes mellitus with foot ulcer (principal); L97.412 Non-pressure chronic ulcer of right heel and midfoot with fat layer exposed; L97.521 Non-pressure chronic ulcer of other part of left foot limited to breakdown of skin; F17.210 Nicotine dependence, cigarettes, uncomplicated | CPT/HCPCS: 97597; A6250 ==

== ENCOUNTER → 2021-06-29 10:18 | Outpatient (BNVA) | payer MEDICARE, MEDICAID, SELFPAY | PROVIDERS: PCP Family Medicine; Visit Provider Thoracic Surgery (Cardiothoracic Vascular Surgery) | DX: E11.621 Type 2 diabetes mellitus with foot ulcer (principal); L97.412 Non-pressure chronic ulcer of right heel and midfoot with fat layer exposed; L97.521 Non-pressure chronic ulcer of other part of left foot limited to breakdown of skin; F17.210 Nicotine dependence, cigarettes, uncomplicated | CPT/HCPCS: 87070; 87077; 87186; 97597; A6250 ==

== ENCOUNTER → 2021-07-06 10:30 | Outpatient (BNVA) | payer MEDICARE, MEDICAID, SELFPAY | PROVIDERS: PCP Family Medicine; Visit Provider Thoracic Surgery (Cardiothoracic Vascular Surgery) | DX: E11.621 Type 2 diabetes mellitus with foot ulcer (principal); L97.412 Non-pressure chronic ulcer of right heel and midfoot with fat layer exposed; F17.210 Nicotine dependence, cigarettes, uncomplicated; Z09 Encounter for follow-up examination after completed treatment for conditions other than malignant neoplasm | CPT/HCPCS: 97597; A6250 ==

== ENCOUNTER → 2021-07-13 10:09 | Outpatient (BNVA) | payer MEDICARE, MEDICAID, SELFPAY | PROVIDERS: PCP Family Medicine; Visit Provider Thoracic Surgery (Cardiothoracic Vascular Surgery) | DX: E11.621 Type 2 diabetes mellitus with foot ulcer (principal); L97.412 Non-pressure chronic ulcer of right heel and midfoot with fat layer exposed; I96 Gangrene, not elsewhere classified; F17.210 Nicotine dependence, cigarettes, uncomplicated | CPT/HCPCS: 97597; A6250 ==

== ENCOUNTER → 2021-07-20 10:15 | Outpatient (BNVA) | payer MEDICARE, MEDICAID, SELFPAY | PROVIDERS: PCP Family Medicine; Visit Provider Thoracic Surgery (Cardiothoracic Vascular Surgery) | DX: E11.621 Type 2 diabetes mellitus with foot ulcer (principal); L97.412 Non-pressure chronic ulcer of right heel and midfoot with fat layer exposed; I96 Gangrene, not elsewhere classified | CPT/HCPCS: 97597 ==

== ENCOUNTER → 2021-07-27 10:11 | Outpatient (BNVA) | payer MEDICARE, MEDICAID, SELFPAY | PROVIDERS: PCP Family Medicine; Visit Provider Thoracic Surgery (Cardiothoracic Vascular Surgery) | DX: E11.621 Type 2 diabetes mellitus with foot ulcer (principal); L97.412 Non-pressure chronic ulcer of right heel and midfoot with fat layer exposed; I96 Gangrene, not elsewhere classified; F17.210 Nicotine dependence, cigarettes, uncomplicated | CPT/HCPCS: 97597; A6212; A6250 ==

== ENCOUNTER → 2021-08-10 10:40 | Outpatient (BNVA) | payer MEDICARE, MEDICAID, SELFPAY | PROVIDERS: PCP Family Medicine; Visit Provider Thoracic Surgery (Cardiothoracic Vascular Surgery) | DX: E11.621 Type 2 diabetes mellitus with foot ulcer (principal); L97.412 Non-pressure chronic ulcer of right heel and midfoot with fat layer exposed; I96 Gangrene, not elsewhere classified | CPT/HCPCS: 97597 ==

== ENCOUNTER → 2021-08-24 10:57 | Outpatient (BNVA) | payer MEDICARE, MEDICAID, SELFPAY | PROVIDERS: PCP Family Medicine; Visit Provider Thoracic Surgery (Cardiothoracic Vascular Surgery) | DX: E11.621 Type 2 diabetes mellitus with foot ulcer (principal); L97.412 Non-pressure chronic ulcer of right heel and midfoot with fat layer exposed; I96 Gangrene, not elsewhere classified | CPT/HCPCS: 97597 ==

== ENCOUNTER → 2021-09-07 10:33 | Outpatient (BNVA) | payer MEDICARE, MEDICAID, SELFPAY | PROVIDERS: PCP Family Medicine; Visit Provider Nurse Practitioner Family | DX: E11.621 Type 2 diabetes mellitus with foot ulcer (principal); L97.412 Non-pressure chronic ulcer of right heel and midfoot with fat layer exposed; I96 Gangrene, not elsewhere classified | CPT/HCPCS: 11042; A6250 ==

== ENCOUNTER → 2021-09-14 10:29 | Outpatient (BNVA) | payer MEDICARE, MEDICAID, SELFPAY | PROVIDERS: PCP Family Medicine; Visit Provider Thoracic Surgery (Cardiothoracic Vascular Surgery) | DX: E11.621 Type 2 diabetes mellitus with foot ulcer (principal); L97.412 Non-pressure chronic ulcer of right heel and midfoot with fat layer exposed; I96 Gangrene, not elsewhere classified | CPT/HCPCS: 97597 ==

== ENCOUNTER → 2021-09-28 09:50 | Outpatient (BNVA) | payer MEDICARE, MEDICAID, SELFPAY | PROVIDERS: PCP Family Medicine; Visit Provider Thoracic Surgery (Cardiothoracic Vascular Surgery) | DX: E11.621 Type 2 diabetes mellitus with foot ulcer (principal); L97.412 Non-pressure chronic ulcer of right heel and midfoot with fat layer exposed; I96 Gangrene, not elsewhere classified | CPT/HCPCS: 97597 ==

== ENCOUNTER → 2021-10-12 10:35 | Outpatient (BNVA) | payer MEDICARE, MEDICAID, SELFPAY | PROVIDERS: PCP Family Medicine; Visit Provider Thoracic Surgery (Cardiothoracic Vascular Surgery) | DX: E11.621 Type 2 diabetes mellitus with foot ulcer (principal); L97.412 Non-pressure chronic ulcer of right heel and midfoot with fat layer exposed; I96 Gangrene, not elsewhere classified | CPT/HCPCS: 11042; A6210 ==

== ENCOUNTER → 2021-10-19 10:28 | Outpatient (BNVA) | payer MEDICARE, MEDICAID, SELFPAY | PROVIDERS: PCP Family Medicine; Visit Provider Nurse Practitioner Family | DX: E11.621 Type 2 diabetes mellitus with foot ulcer (principal); L97.412 Non-pressure chronic ulcer of right heel and midfoot with fat layer exposed; I96 Gangrene, not elsewhere classified | CPT/HCPCS: 11042 ==

== ENCOUNTER → 2021-10-26 10:29 | Outpatient (BNVA) | payer MEDICARE, MEDICAID, SELFPAY | PROVIDERS: PCP Family Medicine; Visit Provider Thoracic Surgery (Cardiothoracic Vascular Surgery) | DX: E11.621 Type 2 diabetes mellitus with foot ulcer (principal); L97.512 Non-pressure chronic ulcer of other part of right foot with fat layer exposed; I96 Gangrene, not elsewhere classified | CPT/HCPCS: 11042 ==

== ENCOUNTER → 2021-11-02 10:15 | Outpatient (BNVA) | payer MEDICARE, MEDICAID, SELFPAY | PROVIDERS: PCP Family Medicine; Visit Provider Thoracic Surgery (Cardiothoracic Vascular Surgery) | DX: E11.621 Type 2 diabetes mellitus with foot ulcer (principal); L97.412 Non-pressure chronic ulcer of right heel and midfoot with fat layer exposed; I96 Gangrene, not elsewhere classified | CPT/HCPCS: 11042 ==

== ENCOUNTER → 2021-11-09 10:36 | Outpatient (BNVA) | payer MEDICARE, MEDICAID, SELFPAY | PROVIDERS: PCP Family Medicine; Visit Provider Thoracic Surgery (Cardiothoracic Vascular Surgery) | DX: E11.621 Type 2 diabetes mellitus with foot ulcer (principal); L97.412 Non-pressure chronic ulcer of right heel and midfoot with fat layer exposed; I96 Gangrene, not elsewhere classified | CPT/HCPCS: 97597 ==

== ENCOUNTER → 2021-11-16 10:34 | Outpatient (BNVA) | payer MEDICARE, MEDICAID, SELFPAY | PROVIDERS: PCP Family Medicine; Visit Provider Thoracic Surgery (Cardiothoracic Vascular Surgery) | DX: E11.621 Type 2 diabetes mellitus with foot ulcer (principal); L97.412 Non-pressure chronic ulcer of right heel and midfoot with fat layer exposed; I96 Gangrene, not elsewhere classified | CPT/HCPCS: 15275; A6206; A6250; Q4205 ==

== ENCOUNTER → 2021-11-25 10:27 | Outpatient (BNVA) | payer MEDICARE, MEDICAID, SELFPAY | PROVIDERS: PCP Family Medicine; Visit Provider Thoracic Surgery (Cardiothoracic Vascular Surgery) | DX: E11.621 Type 2 diabetes mellitus with foot ulcer (principal); L97.412 Non-pressure chronic ulcer of right heel and midfoot with fat layer exposed; I96 Gangrene, not elsewhere classified | CPT/HCPCS: 15275; A6206; A6250; Q4205 ==

== ENCOUNTER → 2021-12-02 11:11 | Outpatient (BNVA) | payer MEDICARE, MEDICAID, SELFPAY | PROVIDERS: PCP Family Medicine; Visit Provider Nurse Practitioner Family | DX: E11.621 Type 2 diabetes mellitus with foot ulcer (principal); L97.412 Non-pressure chronic ulcer of right heel and midfoot with fat layer exposed; L97.522 Non-pressure chronic ulcer of other part of left foot with fat layer exposed; I96 Gangrene, not elsewhere classified | CPT/HCPCS: 11042; 15275; A6207; A6250; Q4205 ==

== ENCOUNTER → 2021-12-09 10:22 | Outpatient (BNVA) | payer MEDICARE, MEDICAID, SELFPAY | PROVIDERS: PCP Family Medicine; Visit Provider Thoracic Surgery (Cardiothoracic Vascular Surgery) | DX: I96 Gangrene, not elsewhere classified (principal); E11.621 Type 2 diabetes mellitus with foot ulcer; L97.412 Non-pressure chronic ulcer of right heel and midfoot with fat layer exposed; L97.522 Non-pressure chronic ulcer of other part of left foot with fat layer exposed | CPT/HCPCS: 15275; A6207; A6250; Q4205 ==

== ENCOUNTER → 2021-12-16 10:16 | Outpatient (BNVA) | payer MEDICARE, MEDICAID, SELFPAY | PROVIDERS: PCP Family Medicine; Visit Provider Thoracic Surgery (Cardiothoracic Vascular Surgery) | DX: I96 Gangrene, not elsewhere classified (principal); E11.621 Type 2 diabetes mellitus with foot ulcer; L97.412 Non-pressure chronic ulcer of right heel and midfoot with fat layer exposed; L97.522 Non-pressure chronic ulcer of other part of left foot with fat layer exposed | CPT/HCPCS: 15275; 97597; A6206; A6250; Q4205 ==

== ENCOUNTER → 2021-12-23 11:23 | Outpatient (BNVA) | payer MEDICARE, MEDICAID, SELFPAY | PROVIDERS: PCP Family Medicine; Visit Provider Thoracic Surgery (Cardiothoracic Vascular Surgery) | DX: I96 Gangrene, not elsewhere classified (principal); E11.621 Type 2 diabetes mellitus with foot ulcer; L97.412 Non-pressure chronic ulcer of right heel and midfoot with fat layer exposed; L97.522 Non-pressure chronic ulcer of other part of left foot with fat layer exposed | CPT/HCPCS: 15275; A6206; A6250; Q4205 ==

== ENCOUNTER → 2021-12-30 10:15 | Outpatient (BNVA) | payer MEDICARE, MEDICAID, SELFPAY | PROVIDERS: PCP Family Medicine; Visit Provider Thoracic Surgery (Cardiothoracic Vascular Surgery) | DX: E11.621 Type 2 diabetes mellitus with foot ulcer (principal); I96 Gangrene, not elsewhere classified; L97.512 Non-pressure chronic ulcer of other part of right foot with fat layer exposed; E11.40 Type 2 diabetes mellitus with diabetic neuropathy, unspecified | CPT/HCPCS: 15275; A6206; A6250; Q4205 ==

== ENCOUNTER → 2022-01-06 10:33 | Outpatient (BNVA) | payer MEDICARE, MEDICAID, SELFPAY | PROVIDERS: PCP Family Medicine; Visit Provider Thoracic Surgery (Cardiothoracic Vascular Surgery) | DX: I96 Gangrene, not elsewhere classified (principal); E11.621 Type 2 diabetes mellitus with foot ulcer; L97.512 Non-pressure chronic ulcer of other part of right foot with fat layer exposed | CPT/HCPCS: 97597; A6210 ==

== ENCOUNTER → 2022-01-11 10:42 | Outpatient (BNVA) | payer MEDICARE, MEDICAID, SELFPAY | PROVIDERS: PCP Family Medicine; Visit Provider Thoracic Surgery (Cardiothoracic Vascular Surgery) | DX: I96 Gangrene, not elsewhere classified (principal); E11.621 Type 2 diabetes mellitus with foot ulcer; L97.412 Non-pressure chronic ulcer of right heel and midfoot with fat layer exposed; E11.40 Type 2 diabetes mellitus with diabetic neuropathy, unspecified; Z79.4 Long term (current) use of insulin | CPT/HCPCS: 11042; 87070; 87077; 87176; 87186; 87205 ==

== ENCOUNTER 2022-01-12 14:48 | Outpatient (CLI) | payer MEDICARE, MEDICAID, SELFPAY ==
--- NOTE | 2022-01-12 16:03 | XR_ITS ---
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 No fracture or dislocation. Mild soft tissue swelling along the fifth MP joint. No sign of bone destr uction. No radiopaque soft tissue foreign bodies are seen. XR/XR foot RT min 3V* [id number] IMPRESSION: 1. Soft tissue swelling near the fifth MP joint. 2. No fracture, bone destruction or other significant finding.
== END 2022-01-12 14:49 | disposition home or self-care (01) ==
LOC: RAD 14:51
PROVIDERS: PCP Family Medicine; Visit Provider Thoracic Surgery (Cardiothoracic Vascular Surgery)
DX: L97.512 Non-pressure chronic ulcer of other part of right foot with fat layer exposed (principal); M79.89 Other specified soft tissue disorders
CPT/HCPCS: 73630

== ENCOUNTER → 2022-01-18 10:33 | Outpatient (BNVA) | payer MEDICARE, MEDICAID, SELFPAY | PROVIDERS: PCP Family Medicine; Visit Provider Thoracic Surgery (Cardiothoracic Vascular Surgery) | DX: I96 Gangrene, not elsewhere classified (principal); E11.621 Type 2 diabetes mellitus with foot ulcer; L97.412 Non-pressure chronic ulcer of right heel and midfoot with fat layer exposed | CPT/HCPCS: 11042; A6250 ==

== ENCOUNTER → 2022-01-25 10:16 | Outpatient (BNVA) | payer MEDICARE, MEDICAID, SELFPAY | PROVIDERS: PCP Family Medicine; Visit Provider Thoracic Surgery (Cardiothoracic Vascular Surgery) | DX: I96 Gangrene, not elsewhere classified (principal); E11.621 Type 2 diabetes mellitus with foot ulcer; L97.412 Non-pressure chronic ulcer of right heel and midfoot with fat layer exposed | CPT/HCPCS: 11042; A6021; A6250 ==

== ENCOUNTER → 2022-02-01 10:23 | Outpatient (BNVA) | payer MEDICARE, MEDICAID, SELFPAY | PROVIDERS: PCP Family Medicine; Visit Provider Thoracic Surgery (Cardiothoracic Vascular Surgery) | DX: I96 Gangrene, not elsewhere classified (principal); E11.621 Type 2 diabetes mellitus with foot ulcer; L97.412 Non-pressure chronic ulcer of right heel and midfoot with fat layer exposed | CPT/HCPCS: 11042; A6250 ==

== ENCOUNTER → 2022-02-15 10:31 | Outpatient (BNVA) | payer MEDICARE, MEDICAID, SELFPAY | PROVIDERS: PCP Family Medicine; Visit Provider Nurse Practitioner Family | DX: I96 Gangrene, not elsewhere classified (principal); E11.621 Type 2 diabetes mellitus with foot ulcer; L97.412 Non-pressure chronic ulcer of right heel and midfoot with fat layer exposed | CPT/HCPCS: 11042 ==

== ENCOUNTER → 2022-02-22 10:25 | Outpatient (BNVA) | payer MEDICARE, MEDICAID, SELFPAY | PROVIDERS: PCP Family Medicine; Visit Provider Nurse Practitioner Family | DX: I96 Gangrene, not elsewhere classified (principal); E11.621 Type 2 diabetes mellitus with foot ulcer; L97.412 Non-pressure chronic ulcer of right heel and midfoot with fat layer exposed | CPT/HCPCS: 11042 ==

== ENCOUNTER → 2022-03-01 10:21 | Outpatient (BNVA) | payer MEDICARE, MEDICAID, SELFPAY | PROVIDERS: PCP Family Medicine; Visit Provider Nurse Practitioner Family | DX: I96 Gangrene, not elsewhere classified (principal); E11.621 Type 2 diabetes mellitus with foot ulcer; L97.412 Non-pressure chronic ulcer of right heel and midfoot with fat layer exposed | CPT/HCPCS: 11042; 87070; 87077; 87176; 87186; 87205 ==

== ENCOUNTER → 2022-03-08 10:16 | Outpatient (BNVA) | payer MEDICARE, MEDICAID, SELFPAY | PROVIDERS: PCP Family Medicine; Visit Provider Thoracic Surgery (Cardiothoracic Vascular Surgery) | DX: I96 Gangrene, not elsewhere classified (principal); E11.621 Type 2 diabetes mellitus with foot ulcer; L97.412 Non-pressure chronic ulcer of right heel and midfoot with fat layer exposed | CPT/HCPCS: 11042 ==

== ENCOUNTER → 2022-03-24 09:53 | Outpatient (BNVA) | payer MEDICARE, MEDICAID, SELFPAY | PROVIDERS: PCP Family Medicine; Visit Provider Thoracic Surgery (Cardiothoracic Vascular Surgery) | DX: I96 Gangrene, not elsewhere classified (principal); E11.621 Type 2 diabetes mellitus with foot ulcer; L97.412 Non-pressure chronic ulcer of right heel and midfoot with fat layer exposed | CPT/HCPCS: 11042; A6251 ==

== ENCOUNTER → 2022-03-31 10:20 | Outpatient (BNVA) | payer MEDICARE, MEDICAID, SELFPAY | PROVIDERS: PCP Family Medicine; Visit Provider Thoracic Surgery (Cardiothoracic Vascular Surgery) | DX: I96 Gangrene, not elsewhere classified (principal); E11.621 Type 2 diabetes mellitus with foot ulcer; L97.412 Non-pressure chronic ulcer of right heel and midfoot with fat layer exposed | CPT/HCPCS: 11042; 87070; A6212 ==

== ENCOUNTER → 2022-04-07 10:11 | Outpatient (BNVA) | payer MEDICARE, MEDICAID, SELFPAY | PROVIDERS: PCP Family Medicine; Visit Provider Thoracic Surgery (Cardiothoracic Vascular Surgery) | DX: I96 Gangrene, not elsewhere classified (principal); E11.621 Type 2 diabetes mellitus with foot ulcer; L97.412 Non-pressure chronic ulcer of right heel and midfoot with fat layer exposed | CPT/HCPCS: 11042; A6251 ==

== ENCOUNTER → 2022-04-21 10:04 | Outpatient (BNVA) | payer MEDICARE, MEDICAID, SELFPAY | PROVIDERS: PCP Family Medicine; Visit Provider Thoracic Surgery (Cardiothoracic Vascular Surgery) | DX: I96 Gangrene, not elsewhere classified (principal); E11.621 Type 2 diabetes mellitus with foot ulcer; L97.412 Non-pressure chronic ulcer of right heel and midfoot with fat layer exposed; L97.422 Non-pressure chronic ulcer of left heel and midfoot with fat layer exposed | CPT/HCPCS: 11042; 97597; A6219 ==

== ENCOUNTER → 2022-04-28 10:16 | Outpatient (BNVA) | payer MEDICARE, MEDICAID, SELFPAY | PROVIDERS: PCP Family Medicine; Visit Provider Thoracic Surgery (Cardiothoracic Vascular Surgery) | DX: I96 Gangrene, not elsewhere classified (principal); E11.621 Type 2 diabetes mellitus with foot ulcer; L97.412 Non-pressure chronic ulcer of right heel and midfoot with fat layer exposed; L97.422 Non-pressure chronic ulcer of left heel and midfoot with fat layer exposed | CPT/HCPCS: 11042; 97597 ==

== ENCOUNTER → 2022-05-05 09:58 | Outpatient (BNVA) | payer MEDICARE, MEDICAID, SELFPAY | PROVIDERS: PCP Family Medicine; Visit Provider Thoracic Surgery (Cardiothoracic Vascular Surgery) | DX: I96 Gangrene, not elsewhere classified (principal); E11.621 Type 2 diabetes mellitus with foot ulcer; L97.412 Non-pressure chronic ulcer of right heel and midfoot with fat layer exposed; L89.892 Pressure ulcer of other site, stage 2 | CPT/HCPCS: 11042; A6250 ==

== ENCOUNTER → 2022-05-12 09:59 | Outpatient (BNVA) | payer MEDICARE, MEDICAID, SELFPAY | PROVIDERS: PCP Family Medicine; Visit Provider Thoracic Surgery (Cardiothoracic Vascular Surgery) | DX: I96 Gangrene, not elsewhere classified (principal); E11.621 Type 2 diabetes mellitus with foot ulcer; L97.412 Non-pressure chronic ulcer of right heel and midfoot with fat layer exposed; L97.521 Non-pressure chronic ulcer of other part of left foot limited to breakdown of skin | CPT/HCPCS: 11042; 97597 ==

== ENCOUNTER → 2022-05-26 10:16 | Outpatient (BNVA) | payer MEDICARE, MEDICAID, SELFPAY | PROVIDERS: PCP Family Medicine; Visit Provider Thoracic Surgery (Cardiothoracic Vascular Surgery) | DX: I96 Gangrene, not elsewhere classified (principal); E11.621 Type 2 diabetes mellitus with foot ulcer; L97.412 Non-pressure chronic ulcer of right heel and midfoot with fat layer exposed; L97.521 Non-pressure chronic ulcer of other part of left foot limited to breakdown of skin | CPT/HCPCS: 11042; 97597; A6212 ==

== ENCOUNTER → 2022-06-02 13:15 | Outpatient (BNVA) | payer MEDICARE, MEDICAID, SELFPAY | PROVIDERS: PCP Family Medicine; Visit Provider Thoracic Surgery (Cardiothoracic Vascular Surgery) | DX: I96 Gangrene, not elsewhere classified (principal); E11.621 Type 2 diabetes mellitus with foot ulcer; L97.412 Non-pressure chronic ulcer of right heel and midfoot with fat layer exposed; L97.521 Non-pressure chronic ulcer of other part of left foot limited to breakdown of skin; L89.892 Pressure ulcer of other site, stage 2 | CPT/HCPCS: 11042; 97597 ==

== ENCOUNTER → 2022-06-07 10:57 | Outpatient (BNVA) | payer MEDICARE, MEDICAID, SELFPAY | PROVIDERS: PCP Family Medicine; Visit Provider Thoracic Surgery (Cardiothoracic Vascular Surgery) | DX: I96 Gangrene, not elsewhere classified (principal); E11.621 Type 2 diabetes mellitus with foot ulcer; L97.412 Non-pressure chronic ulcer of right heel and midfoot with fat layer exposed; L97.521 Non-pressure chronic ulcer of other part of left foot limited to breakdown of skin; L89.892 Pressure ulcer of other site, stage 2 | CPT/HCPCS: 11042; 87070; 87077; 87176; 87186; 87205; 97597; A6197; A6252 ==

== ENCOUNTER 2022-06-11 10:03 | Outpatient (CLI) | payer MEDICARE, MEDICAID, SELFPAY ==
--- NOTE | 2022-06-11 10:16 | XR_ITS ---
WS: [id number] EXAMINATION: XR foot RT min 3V* [id number] REASON FOR EXAM: DM ulcer, non-healing ulcer; rule out osteomyelitis COMPARISON: None available. ORDER DATE: 06/11/2022 10:18 AM TECHNIQUE: 3 views of the right foot were obtained. FINDINGS/IMPRESSION: There is fragmentation with involvement of both articular surfaces of the proximal phalanx of the gre at toe as a result of diffuse lytic change and/or posttraumatic change. There is diffuse edema especi ally in the first through third toes and plantar aspect of the foot. Edema is greatest around the fir st metatarsal. There is prominent sclerotic change in the second metatarsal head with periosteal thic kening in both second and third distal metatarsals. Findings are highly suspicious for osteomyelitis.
== END 2022-06-11 10:04 | disposition home or self-care (01) ==
LOC: RAD 10:10
PROVIDERS: PCP Family Medicine; Visit Provider Thoracic Surgery (Cardiothoracic Vascular Surgery)
DX: E11.621 Type 2 diabetes mellitus with foot ulcer (principal); L97.519 Non-pressure chronic ulcer of other part of right foot with unspecified severity
CPT/HCPCS: 73630

== ENCOUNTER → 2022-06-14 09:48 | Outpatient (BNVA) | payer MEDICARE, MEDICAID, SELFPAY | PROVIDERS: PCP Family Medicine; Visit Provider Thoracic Surgery (Cardiothoracic Vascular Surgery) | DX: E11.621 Type 2 diabetes mellitus with foot ulcer (principal); L97.412 Non-pressure chronic ulcer of right heel and midfoot with fat layer exposed; L97.521 Non-pressure chronic ulcer of other part of left foot limited to breakdown of skin; Z09 Encounter for follow-up examination after completed treatment for conditions other than malignant neoplasm | CPT/HCPCS: 11042; A6197; A6219; A6252 ==

== ENCOUNTER 2022-06-15 11:59 | Outpatient (CLI) | payer MEDICARE, MEDICAID, SELFPAY ==
--- NOTE | 2022-06-15 | XR_ITS ---
WS: [id number] Exam: XR chest 2V* [id number] Date/Time of Exam: 06/15/2022 11:49 AM Reason For Exam: rule out bullous disease for hyperbaric txt Comparison 10/06/2020. The lungs are clear and fully expanded. Normal cardiomediastinal silhouette. A left subclavian port e nds in the lower one third of the SVC. Bony structures are intact. No pleural effusions. XR/XR chest 2V* [id number] IMPRESSION: 1. Negative chest.
[2022-06-15 12:44] LABS: Basophils # 0.1 10^3/uL (0.0-0.1); Basophils % 0.6 %; Eosinophils # 0.5 10^3/uL (0.0-0.8); Eosinophils % 5.8 %; Hematocrit 37.2 % (37.0-47.0); Hemoglobin 11.9 g/dL (11.5-15.3); Mean Corpuscular Volume 109.4 fl (81-99); Mean Platelet Volume 9.6 fL (7.4-10.4); Monocytes # 0.5 10^3/uL (0.2-0.9); Monocytes % 5.7 %; Neutrophils # 5.17 10^3/uL (1.8-7.7); Neutrophils % 63.5 %; Nucleated Red Blood Cells % 0 %; Platelet Count 189 10^3/cmm (130-400); Red Cell Distribution Width 15.2 % (12.1-15.1); White Blood Count 8.1 10^3/uL (4.0-10.0)
[2022-06-15 12:49] LABS: Erythrocyte Sedimentation Rate 15 mm/hr (0-15)
[2022-06-15 12:55] LABS: Estmated Average Glucose 117; Hemoglobin A1C 5.7 % (4.0-6.0)
[2022-06-15 13:05] LABS: Alanine Aminotransferase 14 U/L (0-33); Albumin Level 4.4 g/dL (3.5-5.2); Alkaline Phosphatase 61 U/L (35-105); Anion Gap 17.2 (5-19); Aspartate Amino Transferase 17 U/L (0-32); Blood Urea Nitrogen 40 mg/dL (6-20); C Reactive Protein 34.8 mg/L (0.0-4.9); Calcium 9.3 mg/dL (8.5-10.5); Carbon Dioxide 31 mmol/L (22-29); Chloride 98 mmol/L (98-107); Globulin 3.2 g/dL (1.3-4.6); Glomerular Filtration Rate 7.9 mL/min (90-130); Glucose 129 mg/dL (65-115); Osmolality Calculated 305 mOsm/kg (285-295); Potassium 4.2 mmol/L (3.5-5.1); Sodium 142 mmol/L (136-145); Total Bilirubin 0.3 mg/dL (0.15-1.2); Total Protein 7.6 g/dL (6.6-8.7)
== END 2022-06-15 12:00 | disposition home or self-care (01) ==
LOC: LAB 12:05
PROVIDERS: PCP Family Medicine; Visit Provider Thoracic Surgery (Cardiothoracic Vascular Surgery)
DX: M86.171 Other acute osteomyelitis, right ankle and foot (principal); E11.621 Type 2 diabetes mellitus with foot ulcer; L97.509 Non-pressure chronic ulcer of other part of unspecified foot with unspecified severity
CPT/HCPCS: 36415; 71046; 80053; 83036; 84134; 85025; 85651; 86140; 93005

== ENCOUNTER → 2022-06-17 08:05 | Outpatient (BNVA) | payer MEDICARE, MEDICAID, SELFPAY | PROVIDERS: PCP Family Medicine; Visit Provider Nurse Practitioner Family | DX: E11.621 Type 2 diabetes mellitus with foot ulcer (principal); L97.413 Non-pressure chronic ulcer of right heel and midfoot with necrosis of muscle | CPT/HCPCS: G0277 ==

== ENCOUNTER → 2022-06-18 09:48 | Outpatient (BNVA) | payer MEDICARE, MEDICAID, SELFPAY | PROVIDERS: PCP Family Medicine; Visit Provider Thoracic Surgery (Cardiothoracic Vascular Surgery) | DX: E11.621 Type 2 diabetes mellitus with foot ulcer (principal); L97.413 Non-pressure chronic ulcer of right heel and midfoot with necrosis of muscle | CPT/HCPCS: G0277 ==

== ENCOUNTER → 2022-06-22 08:18 | Outpatient (BNVA) | payer MEDICARE, MEDICAID, SELFPAY | PROVIDERS: PCP Family Medicine; Visit Provider Nurse Practitioner Family | DX: E11.621 Type 2 diabetes mellitus with foot ulcer (principal); L97.413 Non-pressure chronic ulcer of right heel and midfoot with necrosis of muscle | CPT/HCPCS: G0277 ==

== ENCOUNTER → 2022-06-23 10:15 | Outpatient (BNVA) | payer MEDICARE, MEDICAID, SELFPAY | PROVIDERS: PCP Family Medicine; Visit Provider Thoracic Surgery (Cardiothoracic Vascular Surgery) | DX: E11.621 Type 2 diabetes mellitus with foot ulcer (principal); L97.413 Non-pressure chronic ulcer of right heel and midfoot with necrosis of muscle | CPT/HCPCS: G0277 ==

== ENCOUNTER → 2022-06-24 10:41 | Outpatient (BNVA) | payer MEDICARE, MEDICAID, SELFPAY | PROVIDERS: PCP Family Medicine; Visit Provider Nurse Practitioner Family | DX: E11.621 Type 2 diabetes mellitus with foot ulcer (principal); L97.412 Non-pressure chronic ulcer of right heel and midfoot with fat layer exposed; L97.521 Non-pressure chronic ulcer of other part of left foot limited to breakdown of skin | CPT/HCPCS: 11042; A6197; A6212; A6251; G0277 ==

== ENCOUNTER → 2022-06-25 09:45 | Outpatient (BNVA) | payer MEDICARE, MEDICAID, SELFPAY | PROVIDERS: PCP Family Medicine | DX: E11.621 Type 2 diabetes mellitus with foot ulcer (principal); L97.413 Non-pressure chronic ulcer of right heel and midfoot with necrosis of muscle | CPT/HCPCS: G0277 ==

== ENCOUNTER → 2022-06-28 09:45 | Outpatient (BNVA) | payer MEDICARE, MEDICAID, SELFPAY | PROVIDERS: PCP Family Medicine; Visit Provider Thoracic Surgery (Cardiothoracic Vascular Surgery) | DX: E11.621 Type 2 diabetes mellitus with foot ulcer (principal); L97.415 Non-pressure chronic ulcer of right heel and midfoot with muscle involvement without evidence of necrosis | CPT/HCPCS: G0277 ==

== ENCOUNTER → 2022-06-29 08:17 | Outpatient (BNVA) | payer MEDICARE, MEDICAID, SELFPAY | PROVIDERS: PCP Family Medicine; Visit Provider Nurse Practitioner Family | DX: E11.621 Type 2 diabetes mellitus with foot ulcer (principal); L97.413 Non-pressure chronic ulcer of right heel and midfoot with necrosis of muscle | CPT/HCPCS: G0277 ==

== ENCOUNTER → 2022-06-30 09:54 | Outpatient (BNVA) | payer MEDICARE, MEDICAID, SELFPAY | PROVIDERS: PCP Family Medicine; Visit Provider Thoracic Surgery (Cardiothoracic Vascular Surgery) | DX: E11.621 Type 2 diabetes mellitus with foot ulcer (principal); L97.413 Non-pressure chronic ulcer of right heel and midfoot with necrosis of muscle | CPT/HCPCS: G0277 ==

== ENCOUNTER → 2022-07-01 10:36 | Outpatient (BNVA) | payer MEDICARE, MEDICAID, SELFPAY | PROVIDERS: PCP Family Medicine; Visit Provider Nurse Practitioner Family | DX: E11.621 Type 2 diabetes mellitus with foot ulcer (principal); L97.413 Non-pressure chronic ulcer of right heel and midfoot with necrosis of muscle | CPT/HCPCS: 11042; A6197; A6219; G0277 ==

== ENCOUNTER → 2022-07-02 09:57 | Outpatient (BNVA) | payer MEDICARE, MEDICAID, SELFPAY | PROVIDERS: PCP Family Medicine; Visit Provider Thoracic Surgery (Cardiothoracic Vascular Surgery) | DX: E11.621 Type 2 diabetes mellitus with foot ulcer (principal); L97.413 Non-pressure chronic ulcer of right heel and midfoot with necrosis of muscle | CPT/HCPCS: G0277 ==

== ENCOUNTER → 2022-07-05 09:49 | Outpatient (BNVA) | payer MEDICARE, MEDICAID, SELFPAY | PROVIDERS: PCP Family Medicine | DX: E11.621 Type 2 diabetes mellitus with foot ulcer (principal); L97.413 Non-pressure chronic ulcer of right heel and midfoot with necrosis of muscle | CPT/HCPCS: G0277 ==

== ENCOUNTER → 2022-07-06 08:10 | Outpatient (BNVA) | payer MEDICARE, MEDICAID, SELFPAY | PROVIDERS: PCP Family Medicine | DX: E11.621 Type 2 diabetes mellitus with foot ulcer (principal); L97.413 Non-pressure chronic ulcer of right heel and midfoot with necrosis of muscle | CPT/HCPCS: G0277 ==

== ENCOUNTER → 2022-07-07 13:39 | Outpatient (BNVA) | payer MEDICARE, MEDICAID, SELFPAY | PROVIDERS: PCP Family Medicine; Visit Provider Thoracic Surgery (Cardiothoracic Vascular Surgery) | DX: E11.621 Type 2 diabetes mellitus with foot ulcer (principal); L97.412 Non-pressure chronic ulcer of right heel and midfoot with fat layer exposed | CPT/HCPCS: 11042; A6197; A6212; G0277 ==

== ENCOUNTER → 2022-07-09 09:46 | Outpatient (BNVA) | payer MEDICARE, MEDICAID, SELFPAY | PROVIDERS: PCP Family Medicine; Visit Provider Thoracic Surgery (Cardiothoracic Vascular Surgery) | DX: E11.621 Type 2 diabetes mellitus with foot ulcer (principal); L97.413 Non-pressure chronic ulcer of right heel and midfoot with necrosis of muscle | CPT/HCPCS: G0277 ==

== ENCOUNTER → 2022-07-12 09:51 | Outpatient (BNVA) | payer MEDICARE, MEDICAID, SELFPAY | PROVIDERS: PCP Family Medicine; Visit Provider Thoracic Surgery (Cardiothoracic Vascular Surgery) | DX: E11.621 Type 2 diabetes mellitus with foot ulcer (principal); L97.413 Non-pressure chronic ulcer of right heel and midfoot with necrosis of muscle | CPT/HCPCS: G0277 ==

== ENCOUNTER → 2022-07-13 08:21 | Outpatient (BNVA) | payer MEDICARE, MEDICAID, SELFPAY | PROVIDERS: PCP Family Medicine; Visit Provider Nurse Practitioner Family | DX: E11.621 Type 2 diabetes mellitus with foot ulcer (principal); L97.413 Non-pressure chronic ulcer of right heel and midfoot with necrosis of muscle | CPT/HCPCS: G0277 ==

== ENCOUNTER → 2022-07-14 09:56 | Outpatient (BNVA) | payer MEDICARE, MEDICAID, SELFPAY | PROVIDERS: PCP Family Medicine; Visit Provider Thoracic Surgery (Cardiothoracic Vascular Surgery) | DX: E11.621 Type 2 diabetes mellitus with foot ulcer (principal); L97.413 Non-pressure chronic ulcer of right heel and midfoot with necrosis of muscle | CPT/HCPCS: G0277 ==

== ENCOUNTER → 2022-07-15 10:42 | Outpatient (BNVA) | payer MEDICARE, MEDICAID, SELFPAY | PROVIDERS: PCP Family Medicine; Visit Provider Nurse Practitioner Family | DX: E11.621 Type 2 diabetes mellitus with foot ulcer (principal); L97.413 Non-pressure chronic ulcer of right heel and midfoot with necrosis of muscle | CPT/HCPCS: 11042; A6197; A6219; G0277 ==

== ENCOUNTER → 2022-07-16 09:53 | Outpatient (BNVA) | payer MEDICARE, MEDICAID, SELFPAY | PROVIDERS: PCP Family Medicine; Visit Provider Nurse Practitioner Family | DX: E11.621 Type 2 diabetes mellitus with foot ulcer (principal); L97.413 Non-pressure chronic ulcer of right heel and midfoot with necrosis of muscle | CPT/HCPCS: G0277 ==

== ENCOUNTER → 2022-07-19 09:47 | Outpatient (BNVA) | payer MEDICARE, MEDICAID, SELFPAY | PROVIDERS: PCP Family Medicine; Visit Provider Thoracic Surgery (Cardiothoracic Vascular Surgery) | DX: E11.621 Type 2 diabetes mellitus with foot ulcer (principal); L97.413 Non-pressure chronic ulcer of right heel and midfoot with necrosis of muscle | CPT/HCPCS: G0277 ==

== ENCOUNTER → 2022-07-20 08:39 | Outpatient (BNVA) | payer MEDICARE, MEDICAID, SELFPAY | PROVIDERS: PCP Family Medicine; Visit Provider Nurse Practitioner Family | DX: E11.621 Type 2 diabetes mellitus with foot ulcer (principal); L97.415 Non-pressure chronic ulcer of right heel and midfoot with muscle involvement without evidence of necrosis | CPT/HCPCS: G0277 ==

== ENCOUNTER → 2022-07-21 10:06 | Outpatient (BNVA) | payer MEDICARE, MEDICAID, SELFPAY | PROVIDERS: PCP Family Medicine; Visit Provider Thoracic Surgery (Cardiothoracic Vascular Surgery) | DX: E11.621 Type 2 diabetes mellitus with foot ulcer (principal); L97.415 Non-pressure chronic ulcer of right heel and midfoot with muscle involvement without evidence of necrosis | CPT/HCPCS: G0277 ==

== ENCOUNTER → 2022-07-22 10:37 | Outpatient (BNVA) | payer MEDICARE, MEDICAID, SELFPAY | PROVIDERS: PCP Family Medicine; Visit Provider Nurse Practitioner Family | DX: E11.621 Type 2 diabetes mellitus with foot ulcer (principal); L97.415 Non-pressure chronic ulcer of right heel and midfoot with muscle involvement without evidence of necrosis | CPT/HCPCS: 97597; A6197; A6251; G0277 ==

== ENCOUNTER → 2022-07-23 09:42 | Outpatient (BNVA) | payer MEDICARE, MEDICAID, SELFPAY | PROVIDERS: PCP Family Medicine; Visit Provider Nurse Practitioner Family | DX: E11.621 Type 2 diabetes mellitus with foot ulcer (principal); L97.415 Non-pressure chronic ulcer of right heel and midfoot with muscle involvement without evidence of necrosis | CPT/HCPCS: G0277 ==

== ENCOUNTER → 2022-07-27 08:18 | Outpatient (BNVA) | payer MEDICARE, MEDICAID, SELFPAY | PROVIDERS: PCP Family Medicine; Visit Provider Nurse Practitioner Family | DX: E11.621 Type 2 diabetes mellitus with foot ulcer (principal); M86.171 Other acute osteomyelitis, right ankle and foot; L97.415 Non-pressure chronic ulcer of right heel and midfoot with muscle involvement without evidence of necrosis | CPT/HCPCS: G0277 ==

== ENCOUNTER → 2022-07-28 10:24 | Outpatient (BNVA) | payer MEDICARE, MEDICAID, SELFPAY | PROVIDERS: PCP Family Medicine; Visit Provider Thoracic Surgery (Cardiothoracic Vascular Surgery) | DX: E11.621 Type 2 diabetes mellitus with foot ulcer (principal); L97.415 Non-pressure chronic ulcer of right heel and midfoot with muscle involvement without evidence of necrosis; M86.171 Other acute osteomyelitis, right ankle and foot | CPT/HCPCS: G0277 ==

== ENCOUNTER → 2022-07-30 09:54 | Outpatient (BNVA) | payer MEDICARE, MEDICAID, SELFPAY | PROVIDERS: PCP Family Medicine; Visit Provider Thoracic Surgery (Cardiothoracic Vascular Surgery) | DX: E11.621 Type 2 diabetes mellitus with foot ulcer (principal); L97.415 Non-pressure chronic ulcer of right heel and midfoot with muscle involvement without evidence of necrosis; M86.171 Other acute osteomyelitis, right ankle and foot | CPT/HCPCS: G0277 ==

== ENCOUNTER → 2022-08-02 09:59 | Outpatient (BNVA) | payer MEDICARE, MEDICAID, SELFPAY | PROVIDERS: PCP Family Medicine; Visit Provider Thoracic Surgery (Cardiothoracic Vascular Surgery) | DX: E11.621 Type 2 diabetes mellitus with foot ulcer (principal); L97.415 Non-pressure chronic ulcer of right heel and midfoot with muscle involvement without evidence of necrosis; M86.171 Other acute osteomyelitis, right ankle and foot | CPT/HCPCS: G0277 ==

== ENCOUNTER → 2022-08-03 10:48 | Outpatient (BNVA) | payer MEDICARE, MEDICAID, SELFPAY | PROVIDERS: PCP Family Medicine; Visit Provider Nurse Practitioner Family | DX: E11.621 Type 2 diabetes mellitus with foot ulcer (principal); L97.412 Non-pressure chronic ulcer of right heel and midfoot with fat layer exposed; L97.522 Non-pressure chronic ulcer of other part of left foot with fat layer exposed | CPT/HCPCS: 11042; A6210; A6251; G0277 ==

== ENCOUNTER → 2022-08-05 08:00 | Outpatient (BNVA) | payer MEDICARE, MEDICAID, SELFPAY | PROVIDERS: PCP Family Medicine; Visit Provider Nurse Practitioner Family | DX: E11.621 Type 2 diabetes mellitus with foot ulcer (principal); L97.525 Non-pressure chronic ulcer of other part of left foot with muscle involvement without evidence of necrosis; M86.172 Other acute osteomyelitis, left ankle and foot | CPT/HCPCS: G0277 ==

== ENCOUNTER → 2022-08-06 09:58 | Outpatient (BNVA) | payer MEDICARE, MEDICAID, SELFPAY | PROVIDERS: PCP Family Medicine; Visit Provider Thoracic Surgery (Cardiothoracic Vascular Surgery) | DX: E11.52 Type 2 diabetes mellitus with diabetic peripheral angiopathy with gangrene (principal); L97.416 Non-pressure chronic ulcer of right heel and midfoot with bone involvement without evidence of necrosis | CPT/HCPCS: G0277 ==

== ENCOUNTER → 2022-08-09 09:54 | Outpatient (BNVA) | payer MEDICARE, MEDICAID, SELFPAY | PROVIDERS: PCP Family Medicine; Visit Provider Thoracic Surgery (Cardiothoracic Vascular Surgery) | DX: E11.621 Type 2 diabetes mellitus with foot ulcer (principal); L97.415 Non-pressure chronic ulcer of right heel and midfoot with muscle involvement without evidence of necrosis; M86.171 Other acute osteomyelitis, right ankle and foot | CPT/HCPCS: G0277 ==

== ENCOUNTER → 2022-08-10 10:19 | Outpatient (BNVA) | payer MEDICARE, MEDICAID, SELFPAY | PROVIDERS: PCP Family Medicine; Visit Provider Nurse Practitioner Family | DX: E11.621 Type 2 diabetes mellitus with foot ulcer (principal); L97.415 Non-pressure chronic ulcer of right heel and midfoot with muscle involvement without evidence of necrosis | CPT/HCPCS: 97597; A6210; A6252; G0277 ==

== ENCOUNTER → 2022-08-11 10:10 | Outpatient (BNVA) | payer MEDICARE, MEDICAID, SELFPAY | PROVIDERS: PCP Family Medicine; Visit Provider Thoracic Surgery (Cardiothoracic Vascular Surgery) | DX: E11.621 Type 2 diabetes mellitus with foot ulcer (principal); L97.415 Non-pressure chronic ulcer of right heel and midfoot with muscle involvement without evidence of necrosis | CPT/HCPCS: G0277 ==

== ENCOUNTER → 2022-08-13 10:45 | Outpatient (BNVA) | payer MEDICARE, MEDICAID, SELFPAY | PROVIDERS: PCP Family Medicine; Visit Provider Thoracic Surgery (Cardiothoracic Vascular Surgery) | DX: E11.621 Type 2 diabetes mellitus with foot ulcer (principal); L97.415 Non-pressure chronic ulcer of right heel and midfoot with muscle involvement without evidence of necrosis | CPT/HCPCS: G0277 ==

== ENCOUNTER → 2022-08-17 10:34 | Outpatient (BNVA) | payer MEDICARE, MEDICAID, SELFPAY | PROVIDERS: PCP Family Medicine; Visit Provider Nurse Practitioner Family | DX: E11.621 Type 2 diabetes mellitus with foot ulcer (principal); L97.415 Non-pressure chronic ulcer of right heel and midfoot with muscle involvement without evidence of necrosis | CPT/HCPCS: 97597; A6210; A6251; G0277 ==

== ENCOUNTER → 2022-08-19 07:52 | Outpatient (BNVA) | payer MEDICARE, MEDICAID, SELFPAY | PROVIDERS: PCP Family Medicine; Visit Provider Nurse Practitioner Family | DX: E11.621 Type 2 diabetes mellitus with foot ulcer (principal); L97.415 Non-pressure chronic ulcer of right heel and midfoot with muscle involvement without evidence of necrosis | CPT/HCPCS: G0277 ==

== ENCOUNTER → 2022-08-20 09:54 | Outpatient (BNVA) | payer MEDICARE, MEDICAID, SELFPAY | PROVIDERS: PCP Family Medicine; Visit Provider Thoracic Surgery (Cardiothoracic Vascular Surgery) | DX: E11.621 Type 2 diabetes mellitus with foot ulcer (principal); L97.415 Non-pressure chronic ulcer of right heel and midfoot with muscle involvement without evidence of necrosis | CPT/HCPCS: G0277 ==

== ENCOUNTER → 2022-08-23 09:37 | Outpatient (BNVA) | payer MEDICARE, MEDICAID, SELFPAY | PROVIDERS: PCP Family Medicine; Visit Provider Thoracic Surgery (Cardiothoracic Vascular Surgery) | DX: E11.621 Type 2 diabetes mellitus with foot ulcer (principal); L97.415 Non-pressure chronic ulcer of right heel and midfoot with muscle involvement without evidence of necrosis | CPT/HCPCS: G0277 ==

== ENCOUNTER → 2022-08-24 10:55 | Outpatient (BNVA) | payer MEDICARE, MEDICAID, SELFPAY | PROVIDERS: PCP Family Medicine; Visit Provider Nurse Practitioner Family | DX: E11.621 Type 2 diabetes mellitus with foot ulcer (principal); L97.415 Non-pressure chronic ulcer of right heel and midfoot with muscle involvement without evidence of necrosis; L97.422 Non-pressure chronic ulcer of left heel and midfoot with fat layer exposed | CPT/HCPCS: 97597; A6210; A6212; G0277 ==

== ENCOUNTER → 2022-08-25 09:54 | Outpatient (BNVA) | payer MEDICARE, MEDICAID, SELFPAY | PROVIDERS: PCP Family Medicine; Visit Provider Thoracic Surgery (Cardiothoracic Vascular Surgery) | DX: E11.621 Type 2 diabetes mellitus with foot ulcer (principal); L97.415 Non-pressure chronic ulcer of right heel and midfoot with muscle involvement without evidence of necrosis | CPT/HCPCS: G0277 ==

== ENCOUNTER → 2022-08-26 07:54 | Outpatient (BNVA) | payer MEDICARE, MEDICAID, SELFPAY | PROVIDERS: PCP Family Medicine; Visit Provider Nurse Practitioner Family | DX: E11.621 Type 2 diabetes mellitus with foot ulcer (principal); L97.415 Non-pressure chronic ulcer of right heel and midfoot with muscle involvement without evidence of necrosis | CPT/HCPCS: G0277 ==

== ENCOUNTER → 2022-08-27 09:46 | Outpatient (BNVA) | payer MEDICARE, MEDICAID, SELFPAY | PROVIDERS: PCP Family Medicine; Visit Provider Thoracic Surgery (Cardiothoracic Vascular Surgery) | DX: E11.621 Type 2 diabetes mellitus with foot ulcer (principal); L97.415 Non-pressure chronic ulcer of right heel and midfoot with muscle involvement without evidence of necrosis | CPT/HCPCS: G0277 ==

== ENCOUNTER → 2022-08-30 09:55 | Outpatient (BNVA) | payer MEDICARE, MEDICAID, SELFPAY | PROVIDERS: PCP Family Medicine; Visit Provider Thoracic Surgery (Cardiothoracic Vascular Surgery) | DX: E11.621 Type 2 diabetes mellitus with foot ulcer (principal); L97.415 Non-pressure chronic ulcer of right heel and midfoot with muscle involvement without evidence of necrosis | CPT/HCPCS: G0277 ==

== ENCOUNTER → 2022-08-31 07:43 | Outpatient (BNVA) | payer MEDICARE, MEDICAID, SELFPAY | PROVIDERS: PCP Family Medicine; Visit Provider Nurse Practitioner Family | DX: E11.621 Type 2 diabetes mellitus with foot ulcer (principal); L97.415 Non-pressure chronic ulcer of right heel and midfoot with muscle involvement without evidence of necrosis | CPT/HCPCS: G0277 ==

== ENCOUNTER → 2022-09-01 10:21 | Outpatient (BNVA) | payer MEDICARE, MEDICAID, SELFPAY | PROVIDERS: PCP Family Medicine; Visit Provider Thoracic Surgery (Cardiothoracic Vascular Surgery) | DX: E11.621 Type 2 diabetes mellitus with foot ulcer (principal); L97.415 Non-pressure chronic ulcer of right heel and midfoot with muscle involvement without evidence of necrosis | CPT/HCPCS: G0277 ==

== ENCOUNTER → 2022-09-02 10:35 | Outpatient (BNVA) | payer MEDICARE, MEDICAID, SELFPAY | PROVIDERS: PCP Family Medicine; Visit Provider Nurse Practitioner Family | DX: E11.621 Type 2 diabetes mellitus with foot ulcer (principal); L97.415 Non-pressure chronic ulcer of right heel and midfoot with muscle involvement without evidence of necrosis | CPT/HCPCS: 97597; G0277 ==

== ENCOUNTER → 2022-09-03 10:13 | Outpatient (BNVA) | payer MEDICARE, MEDICAID, SELFPAY | PROVIDERS: PCP Family Medicine; Visit Provider Thoracic Surgery (Cardiothoracic Vascular Surgery) | DX: E11.621 Type 2 diabetes mellitus with foot ulcer (principal); L97.415 Non-pressure chronic ulcer of right heel and midfoot with muscle involvement without evidence of necrosis | CPT/HCPCS: G0277 ==

== ENCOUNTER → 2022-09-07 08:12 | Outpatient (BNVA) | payer MEDICARE, MEDICAID, SELFPAY | PROVIDERS: PCP Family Medicine; Visit Provider Nurse Practitioner Family | DX: E11.621 Type 2 diabetes mellitus with foot ulcer (principal); L97.415 Non-pressure chronic ulcer of right heel and midfoot with muscle involvement without evidence of necrosis | CPT/HCPCS: G0277 ==

== ENCOUNTER → 2022-09-08 10:14 | Outpatient (BNVA) | payer MEDICARE, MEDICAID, SELFPAY | PROVIDERS: PCP Family Medicine; Visit Provider Thoracic Surgery (Cardiothoracic Vascular Surgery) | DX: E11.621 Type 2 diabetes mellitus with foot ulcer (principal); L97.415 Non-pressure chronic ulcer of right heel and midfoot with muscle involvement without evidence of necrosis | CPT/HCPCS: G0277 ==

== ENCOUNTER → 2022-09-09 10:40 | Outpatient (BNVA) | payer MEDICARE, MEDICAID, SELFPAY | PROVIDERS: PCP Family Medicine; Visit Provider Nurse Practitioner Family | DX: E11.52 Type 2 diabetes mellitus with diabetic peripheral angiopathy with gangrene (principal); L97.415 Non-pressure chronic ulcer of right heel and midfoot with muscle involvement without evidence of necrosis | CPT/HCPCS: 11042; A6210; A6219; G0277 ==

== ENCOUNTER → 2022-09-10 09:46 | Outpatient (BNVA) | payer MEDICARE, MEDICAID, SELFPAY | PROVIDERS: PCP Family Medicine; Visit Provider Thoracic Surgery (Cardiothoracic Vascular Surgery) | DX: E11.52 Type 2 diabetes mellitus with diabetic peripheral angiopathy with gangrene (principal); L97.415 Non-pressure chronic ulcer of right heel and midfoot with muscle involvement without evidence of necrosis | CPT/HCPCS: G0277 ==

== ENCOUNTER → 2022-09-13 09:56 | Outpatient (BNVA) | payer MEDICARE, MEDICAID, SELFPAY | PROVIDERS: PCP Family Medicine; Visit Provider Thoracic Surgery (Cardiothoracic Vascular Surgery) | DX: E11.52 Type 2 diabetes mellitus with diabetic peripheral angiopathy with gangrene (principal); L97.415 Non-pressure chronic ulcer of right heel and midfoot with muscle involvement without evidence of necrosis | CPT/HCPCS: G0277 ==

== ENCOUNTER → 2022-09-16 10:11 | Outpatient (BNVA) | payer MEDICARE, MEDICAID, SELFPAY | PROVIDERS: PCP Family Medicine; Visit Provider Nurse Practitioner Family | DX: E11.52 Type 2 diabetes mellitus with diabetic peripheral angiopathy with gangrene (principal); L97.415 Non-pressure chronic ulcer of right heel and midfoot with muscle involvement without evidence of necrosis | CPT/HCPCS: 11044; 87070; 87077; 87176; 87186; 87205; G0277 ==

== ENCOUNTER → 2022-10-21 13:20 | Outpatient (BNVA) | payer MEDICARE, MEDICAID, SELFPAY | PROVIDERS: PCP Family Medicine; Visit Provider Nurse Practitioner Family | DX: E11.52 Type 2 diabetes mellitus with diabetic peripheral angiopathy with gangrene (principal); L97.512 Non-pressure chronic ulcer of other part of right foot with fat layer exposed; L97.522 Non-pressure chronic ulcer of other part of left foot with fat layer exposed; L97.812 Non-pressure chronic ulcer of other part of right lower leg with fat layer exposed | CPT/HCPCS: 97597; 97605; A6210; A6212; A6237; A6250 ==

== ENCOUNTER → 2022-10-28 10:09 | Outpatient (BNVA) | payer MEDICARE, MEDICAID, SELFPAY | PROVIDERS: PCP Family Medicine; Visit Provider Thoracic Surgery (Cardiothoracic Vascular Surgery) | DX: E11.52 Type 2 diabetes mellitus with diabetic peripheral angiopathy with gangrene (principal); L97.512 Non-pressure chronic ulcer of other part of right foot with fat layer exposed; L97.522 Non-pressure chronic ulcer of other part of left foot with fat layer exposed; L97.812 Non-pressure chronic ulcer of other part of right lower leg with fat layer exposed | CPT/HCPCS: 11042; 97597 ==

== ENCOUNTER → 2022-11-01 10:02 | Outpatient (BNVA) | payer MEDICARE, MEDICAID, SELFPAY | PROVIDERS: PCP Family Medicine; Visit Provider Thoracic Surgery (Cardiothoracic Vascular Surgery) | DX: E11.621 Type 2 diabetes mellitus with foot ulcer (principal); L97.515 Non-pressure chronic ulcer of other part of right foot with muscle involvement without evidence of necrosis | CPT/HCPCS: G0277 ==

== ENCOUNTER → 2022-11-02 10:51 | Outpatient (BNVA) | payer MEDICARE, MEDICAID, SELFPAY | PROVIDERS: PCP Family Medicine; Visit Provider Nurse Practitioner Family | DX: L97.512 Non-pressure chronic ulcer of other part of right foot with fat layer exposed (principal); E11.52 Type 2 diabetes mellitus with diabetic peripheral angiopathy with gangrene; L97.522 Non-pressure chronic ulcer of other part of left foot with fat layer exposed; Z09 Encounter for follow-up examination after completed treatment for conditions other than malignant neoplasm | CPT/HCPCS: 97597; A6210; G0277 ==

== ENCOUNTER → 2022-11-03 10:14 | Outpatient (BNVA) | payer MEDICARE, MEDICAID, SELFPAY | PROVIDERS: PCP Family Medicine; Visit Provider Thoracic Surgery (Cardiothoracic Vascular Surgery) | DX: E11.621 Type 2 diabetes mellitus with foot ulcer (principal); L97.525 Non-pressure chronic ulcer of other part of left foot with muscle involvement without evidence of necrosis | CPT/HCPCS: G0277 ==

== ENCOUNTER → 2022-11-04 08:19 | Outpatient (BNVA) | payer MEDICARE, MEDICAID, SELFPAY | PROVIDERS: PCP Family Medicine; Visit Provider Nurse Practitioner Family | DX: E11.621 Type 2 diabetes mellitus with foot ulcer (principal); L97.525 Non-pressure chronic ulcer of other part of left foot with muscle involvement without evidence of necrosis | CPT/HCPCS: G0277 ==

== ENCOUNTER → 2022-11-05 10:10 | Outpatient (BNVA) | payer MEDICARE, MEDICAID, SELFPAY | PROVIDERS: PCP Family Medicine; Visit Provider Thoracic Surgery (Cardiothoracic Vascular Surgery) | DX: E11.621 Type 2 diabetes mellitus with foot ulcer (principal); L97.525 Non-pressure chronic ulcer of other part of left foot with muscle involvement without evidence of necrosis | CPT/HCPCS: G0277 ==

== ENCOUNTER → 2022-11-09 09:14 | Outpatient (BNVA) | payer MEDICARE, MEDICAID, SELFPAY | PROVIDERS: PCP Family Medicine; Visit Provider Nurse Practitioner Family | DX: E11.52 Type 2 diabetes mellitus with diabetic peripheral angiopathy with gangrene (principal); L97.512 Non-pressure chronic ulcer of other part of right foot with fat layer exposed; L97.522 Non-pressure chronic ulcer of other part of left foot with fat layer exposed; Z91.89 Other specified personal risk factors, not elsewhere classified | CPT/HCPCS: 11042; 97597; 99202; 99212; A6219 ==

== ENCOUNTER → 2022-11-15 10:11 | Outpatient (BNVA) | payer MEDICARE, MEDICAID, SELFPAY | PROVIDERS: PCP Family Medicine; Visit Provider Thoracic Surgery (Cardiothoracic Vascular Surgery) | DX: E11.621 Type 2 diabetes mellitus with foot ulcer (principal); L97.515 Non-pressure chronic ulcer of other part of right foot with muscle involvement without evidence of necrosis | CPT/HCPCS: G0277 ==

== ENCOUNTER → 2022-11-16 10:18 | Outpatient (BNVA) | payer MEDICARE, MEDICAID, SELFPAY | PROVIDERS: PCP Family Medicine; Visit Provider Nurse Practitioner Family | DX: E11.52 Type 2 diabetes mellitus with diabetic peripheral angiopathy with gangrene (principal); L97.512 Non-pressure chronic ulcer of other part of right foot with fat layer exposed; L97.522 Non-pressure chronic ulcer of other part of left foot with fat layer exposed | CPT/HCPCS: 97597; A6251; G0277 ==

== ENCOUNTER → 2022-11-17 10:22 | Outpatient (BNVA) | payer MEDICARE, MEDICAID, SELFPAY | PROVIDERS: PCP Family Medicine; Visit Provider Thoracic Surgery (Cardiothoracic Vascular Surgery) | DX: L97.515 Non-pressure chronic ulcer of other part of right foot with muscle involvement without evidence of necrosis (principal); E11.621 Type 2 diabetes mellitus with foot ulcer | CPT/HCPCS: G0277 ==

== ENCOUNTER → 2022-11-18 07:58 | Outpatient (BNVA) | payer MEDICARE, MEDICAID, SELFPAY | PROVIDERS: PCP Family Medicine; Visit Provider Nurse Practitioner Family | DX: E11.621 Type 2 diabetes mellitus with foot ulcer (principal); L97.515 Non-pressure chronic ulcer of other part of right foot with muscle involvement without evidence of necrosis | CPT/HCPCS: G0277 ==

== ENCOUNTER → 2022-11-19 10:21 | Outpatient (BNVA) | payer MEDICARE, MEDICAID, SELFPAY | PROVIDERS: PCP Family Medicine; Visit Provider Thoracic Surgery (Cardiothoracic Vascular Surgery) | DX: E11.621 Type 2 diabetes mellitus with foot ulcer (principal); L97.515 Non-pressure chronic ulcer of other part of right foot with muscle involvement without evidence of necrosis | CPT/HCPCS: G0277 ==

== ENCOUNTER → 2022-11-23 11:10 | Outpatient (BNVA) | payer MEDICARE, MEDICAID, SELFPAY | PROVIDERS: PCP Family Medicine; Visit Provider Nurse Practitioner Family | DX: E11.52 Type 2 diabetes mellitus with diabetic peripheral angiopathy with gangrene (principal); L97.513 Non-pressure chronic ulcer of other part of right foot with necrosis of muscle; L97.522 Non-pressure chronic ulcer of other part of left foot with fat layer exposed | CPT/HCPCS: 97597; A6219 ==

== ENCOUNTER → 2022-12-07 13:57 | Outpatient (BNVA) | payer MEDICARE, MEDICAID, SELFPAY | PROVIDERS: PCP Family Medicine; Visit Provider Nurse Practitioner Family | DX: E11.52 Type 2 diabetes mellitus with diabetic peripheral angiopathy with gangrene (principal); L97.512 Non-pressure chronic ulcer of other part of right foot with fat layer exposed; L97.522 Non-pressure chronic ulcer of other part of left foot with fat layer exposed; M86.171 Other acute osteomyelitis, right ankle and foot | CPT/HCPCS: 11042; A6251 ==

== ENCOUNTER → 2022-12-14 13:51 | Outpatient (BNVA) | payer MEDICARE, MEDICAID, SELFPAY | PROVIDERS: PCP Family Medicine; Visit Provider Nurse Practitioner Family | DX: E11.52 Type 2 diabetes mellitus with diabetic peripheral angiopathy with gangrene (principal); L97.513 Non-pressure chronic ulcer of other part of right foot with necrosis of muscle; L97.522 Non-pressure chronic ulcer of other part of left foot with fat layer exposed | CPT/HCPCS: 11042; A6251 ==

== ENCOUNTER → 2023-01-07 14:22 | Outpatient (BNVA) | payer MEDICARE, MEDICAID, SELFPAY | PROVIDERS: PCP Family Medicine; Visit Provider Thoracic Surgery (Cardiothoracic Vascular Surgery) | DX: E11.52 Type 2 diabetes mellitus with diabetic peripheral angiopathy with gangrene (principal); E11.621 Type 2 diabetes mellitus with foot ulcer; L97.521 Non-pressure chronic ulcer of other part of left foot limited to breakdown of skin; Z09 Encounter for follow-up examination after completed treatment for conditions other than malignant neoplasm | CPT/HCPCS: 97597; A6251 ==

== ENCOUNTER → 2023-01-14 10:54 | Outpatient (BNVA) | payer MEDICARE, MEDICAID, SELFPAY | PROVIDERS: PCP Family Medicine; Visit Provider Nurse Practitioner Family | DX: M86.171 Other acute osteomyelitis, right ankle and foot (principal); E11.52 Type 2 diabetes mellitus with diabetic peripheral angiopathy with gangrene; E11.621 Type 2 diabetes mellitus with foot ulcer; L97.521 Non-pressure chronic ulcer of other part of left foot limited to breakdown of skin | CPT/HCPCS: 97597; A6219 ==

== ENCOUNTER 2023-01-21 06:57 | Emergency (ER) | payer MEDICARE, MEDICAID, SELFPAY ==
[2023-01-21] VITALS (10 sets, daily range): BP systolic 144–169; BP diastolic 81–86; PULSE 91–105; RESP 16–22; TEMP 36.4; O2SAT 95–97; BMI 25.1
--- NOTE | 2023-01-21 07:00 | ECG_ITS ---
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 Measurements Intervals [place] Rate: 105 P: 55 DC: 112 QRS: 9 QRSD: 113 T: 103 QT: 391 QTc: 517 Interpretive Statements SINUS TACHYCARDIA WITH SHORT [place] INTERVAL POSSIBLE LEFT ATRIAL ENLARGEMENT [-0.1mV P-WAVE IN V1/V2] LEFT VENTRICULAR HYPERTROPHY AND ST-T CHANGE [VOLTAGE CRITERIA PLUS ST/T ABNORMALITY] Compared to ECG 10/06/2020 20:36:06 Sinus rhythm no longer present ST (T wave) deviation still present Electronically Signed On 01-21-2023 12:29:31 CDT by Jhon Telles M.D. [email or web address].[email or web address] Researchbl[facility].Ascenergy/store/NU/[id number] f
--- NOTE | 2023-01-21 07:00 | XRR_ITS ---
PROCEDURE INFORMATION: Exam: XR Chest Exam date and time: 01/21/2023 7:31 AM Age: 47 years old Clinical indication: Pain; Angina pectoris; Prior surgery; Surgery date: 6+ months; Surgery type: Port; Patient HX: HX of anal cancer; Additional info: Chest pain TECHNIQUE: Imaging protocol: Radiologic exam of the chest. Views: 1 view. COMPARISON: CR XR chest 2V* [id number] 06/15/2022 12:54 PM FINDINGS: Tubes, catheters and devices: Left IJ approach MediPort is in satisfactory position, with distal tip in the SVC, approximately 3 cm above the SVC/RA junction. Lungs: Unremarkable. No consolidation. Pleural spaces: Unremarkable. No pleural effusion. No pneumothorax. Heart/Mediastinum: Stable cardiomediastinal silhouette. Bones/joints: Unremarkable. XR/XR chest 1V portable [id number] IMPRESSION: No evidence of active cardiopulmonary disease.
--- NOTE | 2023-01-21 07:01 | W.ED.CHESTPA ---
HPI - Chest Pain General: Chief Complaint: Chest Pain Stated Complaint: Chest pain Time Seen by Provider: 01/21/23 07:00 Source: patient Mode of arrival: EMS History of Present Illness: 47-year-old female presents to the emergency room complaining of chest pain. She arrives to the emergency room from dialysis clinic while there she complained of retrosternal chest pain and irregular heart rhythm. She was slightly tachycardic [place] quality was given aspirin and nitro in route she is not having any chest pain at this time. Patient is diabetic is a history of hypertension as well as being a smoker. No known history of coronary artery disease. MD complaint: chest pain Onset (ago): minute(s) Timing of current episode: episodic Onset: during rest Pain location: left chest Pain radiation: none Severity: mild Quality: aching and heaviness Relieving factors: nitroglycerin Exacerbating factors: nothing Associated symptoms: Reports leg edema (Chronic, at baseline); Deny abdominal pain, diaphoresis, dyspnea, fever(s), nausea, palpitations, sense of impending doom, syncope, vomiting or other Treatment prior to arrival: aspirin and nitroglycerin Review of Systems Const: Denies: fever(s), chills or diaphoresis Card: Reports: chest pain; Denies: palpitations or syncope Resp: Denies: dyspnea GI: Denies: abdominal pain, nausea or vomiting : Denies: dysuria, urinary frequency or urinary urgency Musc: Denies: neck pain or back pain Skin/Breast: Denies: rash PFSH ED PFSH: Medical History Chronic anticoagulation Deep vein thrombosis (DVT) during Diabetes Diabetes mellitus End-stage renal disease Squamous cell carcinoma of anal canal Tachycardia Surgical History H/O colonoscopy H/O hand surgery History of hip surgery History of hysterectomy Peritoneal dialysis status Port-A-Cath in place S/P hemodialysis catheter insertion (01/09/20) Removed 11/18/2020 Status post surgery (05/19/20) Removal of peritoneal dialysis catheter Family History Other Cancer Diabetes Denies family history of Anesthesia complication Bleeding disorder Social History Smoking and tobacco/nicotine status: current every day tobacco/nicotine user Alcohol intake: never Substance/Drug Use: never Household members: family Marital status: Single Current occupational status: disabled Physical Exam Const: GENERAL APPEARANCE: cooperative and comfortable ORIENTATION/CONSCIOUSNESS: Yes awake, Yes oriented to person, Yes oriented to place and Yes oriented to time HENMT: COMMON NORMALS: normocephalic, atraumatic and hearing grossly normal bilaterally HEAD & SCALP: normocephalic and atraumatic Resp: COMMON NORMALS: normal respiratory effort, No retractions, No use of accessory muscles and clear to auscultation bilaterally AUSCULTATION: clear to auscultation bilaterally Cardio: COMMON NORMALS: regular rate, regular rhythm and No murmurs present (Cardio) RATE: regular rate RHYTHM: regular rhythm GI: COMMON NORMALS: Soft to palpation and No hepatosplenomegaly present AUSCULTATION: Yes normoactive bowel sounds PALPATION: Yes Soft to palpation, No Tenderness to palpation present (GI), No Guarding due to palpation present (GI) and Yes No hepatosplenomegaly present Extremity: COMMON NORMALS: normal to inspection, capillary refill normal, no clubbing, cyanosis or edema, no calf tenderness and no pedal edema Neuro: SENSORIUM/ORIENTATION: Yes oriented to person, Yes oriented to place and Yes oriented to time Skin: COMMON NORMALS: no rashes or lesions noted GENERAL SKIN EXAM: no rashes or lesions noted Course Vital Signs: Vital signs: Vital Signs Temperature 97.6 F 01/21/23 07:02 Pulse Rate 91 01/21/23 10:40 Respiratory Rate 18 01/21/23 10:40 Blood Pressure 155/82 01/21/23 10:40 Pulse Oximetry 95 01/21/23 10:40 Oxygen Delivery Me thod Room Air 01/21/23 10:39 MDM - Chest Pain Medical Decision Making Cardiac enzymes and EKGs did not show any acute changes. EKG is no acute ST changes reviewed as found in the chart. Patient not having any further symptoms at this time we will discharge patient back to dialysis to complete her dialysis run on [place] we did not have time available for they will complete her dialysis tomorrow she is completely symptom-free at this time we will set her up for an outpatient [facility] sestamibi stress test return if she has further problems. Medical Records I reviewed the patient's medical records. Lab Data I reviewed the patient's lab results. 01/21/23 06:55 01/21/23 06:55 Radiology Impressions Chest X-Ray 01/21/23 07:00 IMPRESSION: No evidence of active cardiopulmonary disease. Laboratory Results WBC 8.82 10^3/uL (3.29-11.43) 01/21/23 06:55 RBC 2.70 10^6/uL (3.85-5.65) L 01/21/23 06:55 Hgb 9.60 g/dL (11.27-16.99) L 01/21/23 06:55 Hct 29.6 % (36-47) L 01/21/23 06:55 MCV 109.6 fl (85-98) H 01/21/23 06:55 MCH 35.6 pg (27-33) H 01/21/23 06:55 MCHC 32.4 g/dL (30-55) 01/21/23 06:55 RDW 17.1 % (12.1-15.1) H 01/21/23 06:55 Plt Count 231 10^3/cmm (157-399) 01/21/23 06:55 MPV 9.4 fL (7.4-10.4) 01/21/23 06:55 Neut % (Auto) 72.0 % 01/21/23 06:55 Lymph % (Auto) 20.0 % 01/21/23 06:55 Sandoval % (Auto) 6.0 % 01/21/23 06:55 Eos % (Auto) 1.2 % 01/21/23 06:55 Baso % (Auto) 0.5 % 01/21/23 06:55 Neut # (Auto) 6.35 10^3/uL (1.8-7.7) 01/21/23 06:55 Lymph # (Auto) 1.8 10^3/uL (0.8-4.8) 01/21/23 06:55 Sandoval # (Auto) 0.5 10^3/uL (0.2-0.9) 01/21/23 06:55 Eos # (Auto) 0.1 10^3/uL (0.0-0.8) 01/21/23 06:55 Baso # (Auto) 0.0 10^3/uL (0.0-0.1) 01/21/23 06:55 Nucleated RBC % (auto) 0 % 01/21/23 06:55 Nucleated RBCs # 0.0 /100WBC 01/21/23 06:55 Sodium 141 mmol/L (136-145) 01/21/23 06:55 Potassium 3.6 mmol/L (3.5-5.1) 01/21/23 06:55 Chloride 103 mmol/L (98-107) 01/21/23 06:55 Carbon Dioxide 22 mmol/L (22-29) 01/21/23 06:55 Anion Gap 19.6 (5-19) H 01/21/23 06:55 BUN 47 mg/dL (6-20) H 01/21/23 06:55 Creatinine 5.8 mg/dL (0.5-0.9) H* 01/21/23 06:55 GFR Calculation 7.8 mL/min (90-130) L 01/21/23 06:55 Glucose 134 mg/dL (65-115) H 01/21/23 06:55 Calculated Osmolality 306 mOsm/kg (285-295) H 01/21/23 06:55 Calcium 9.3 mg/dL (8.5-10.5) 01/21/23 06:55 Total Bilirubin 0.3 mg/dL (0.15-1.2) 01/21/23 06:55 AST 20 U/L (0-32) 01/21/23 06:55 ALT 25 U/L (0-33) 01/21/23 06:55 Alkaline Phosphatase 58 U/L (35-105) 01/21/23 06:55 Troponin T Baseline 36 ng/L (0-10) H 01/21/23 06:55 Troponin T 120 Minute 34.67 ng/L (0-10) H 01/21/23 08:56 Delta Troponin T -1.33 ABS# (0-10) L 01/21/23 08:56 Total Protein 7.2 g/dL (6.6-8.7) 01/21/23 06:55 Albumin 4.4 g/dL (3.5-5.2) 11/03/23 06:55 Globulin 2.8 g/dL (1.3-4.6) 01/21/23 06:55 All radiology interpretation(s) finalized by discharge Discharge Plan Discharge Patient Disposition: Home Clinical Impression: Atypical chest pain, End-stage renal disease (ESRD) Condition: Stable Prescriptions: No Action alprazolam [Xanax] 0.25 mg tablet 0.25 mg PO BID PRN (Reason: Anxiety) diphenhydramine HCl [Benadryl] 25 mg capsule 25 mg PO TID PRN (Reason: Itching) acetaminophen 325 mg capsule 325 mg PO QID PRN (Reason: Pain) pantoprazole 40 mg tablet,delayed release (DR/EC) 40 mg PO BID (DME) blood-glucose meter [Vimodiuch UltraMini] Kit See Rx Instructions .ROUTE .MEDSUPPLY Qty: 1 Rx Instructions: As directed citalopram 40 mg tablet 40 mg PO DAILY (DME) Diabetic Shoes Qty: 1 0RF Rx Instructions: As directed sodium bicarbonate 650 mg tablet 650 mg PO DAILY PRN (Reason: Dialysis) carvedilol [Coreg] 3.125 mg tablet 3.125 mg PO BID Rx Instructions: must administer with a meal/food insulin lispro [Humalog U-100 Insulin] 100 unit/mL Solution 5 unit SUBCUT BID PRN (Reason: Blood Sugar >200) Eliquis 2.5 mg Tablet 2.5 mg PO BID Hold Instructions: Resume on 12/14/19. Ozempic 1 mg/dose (2 mg/1.5 mL) Pen Injector 1 mg SUBCUT Q7D Rx Instructions: Tuesday Zofran 4 mg Tablet 4 mg PO Q8H PRN (Reason: Nausea) hydralazine 25 mg tablet 25 mg PO TID amlodipine 5 mg tablet 5 mg PO DAILY ropinirole 0.25 mg Tablet 0.25 mg PO BEDTIME Januvia 25 mg tablet 25 mg PO DAILY sevelamer carbonate 800 mg tablet 1,600 mg PO TID melatonin 10 mg Capsule 10 mg PO DAILY RenaPlex-D 800 mcg-12.5 mg -2,000 unit Tablet 1 tab PO DAILY Discharge Orders: Discharge ED (Routine); Ordered 01/21/23 Ordered By: Rafat Samuel Referrals: Herber Hussein MD [Primary Care Provider] - Discharge Diet: Usual diet Discharge Activity: Resume usual activity Patient Instructions: Opioid Safety, Pain Management Activity Restrictions/Additional Instructions: Thank you for choosing [facility] for your healthcare needs today. Please realize this is an emergency room and that we are providing you with a medical screening exam and this may not be complete and all inclusive of all the testing and or work up that you may need to determine your ailment or severity of your illness. It is very important that you follow up as instructed or that you return to the Emergency Department should you have concerns or if your condition changes or worsens in any way. Case management make arrangements for an outpatient Lexiscan sestamibi stress test to further evaluate your heart. If you are worsening symptoms return to the emergency room. Follow-up with the dialysis clinic tomorrow for your routine dialysis run. Coding Level of Care Code ED Canine Service Teacher for Chuy Fitch
[2023-01-21 07:25] LABS: Basophils % 0.5 %; Eosinophils # 0.1 10^3/uL (0.0-0.8); Eosinophils % 1.2 %; Hematocrit 29.6 % (36-47); Lymphocytes # 1.8 10^3/uL (0.8-4.8); Mean Corpuscular HGB Conc 32.4 g/dL (30-55); Mean Corpuscular Hemoglobin 35.6 pg (27-33); Mean Corpuscular Volume 109.6 fl (85-98); Mean Platelet Volume 9.4 fL (7.4-10.4); Monocytes # 0.5 10^3/uL (0.2-0.9); Neutrophils # 6.35 10^3/uL (1.8-7.7); Nucleated Red Blood Cells % 0 %; Platelet Count 231 10^3/cmm (157-399); Red Cell Distribution Width 17.1 % (12.1-15.1); White Blood Count 8.82 10^3/uL (3.29-11.43)
[2023-01-21 07:37] LABS: Alanine Aminotransferase 25 U/L (0-33); Albumin Level 4.4 g/dL (3.5-5.2); Alkaline Phosphatase 58 U/L (35-105); Anion Gap 19.6 (5-19); Aspartate Amino Transferase 20 U/L (0-32); Blood Urea Nitrogen 47 mg/dL (6-20); Calcium 9.3 mg/dL (8.5-10.5); Carbon Dioxide 22 mmol/L (22-29); Chloride 103 mmol/L (98-107); Globulin 2.8 g/dL (1.3-4.6); Glomerular Filtration Rate 7.8 mL/min (90-130); Glucose 134 mg/dL (65-115); Osmolality Calculated 306 mOsm/kg (285-295); Potassium 3.6 mmol/L (3.5-5.1); Sodium 141 mmol/L (136-145); Total Bilirubin 0.3 mg/dL (0.15-1.2); Total Protein 7.2 g/dL (6.6-8.7)
[2023-01-21 07:40] LABS: Troponin(5th) Baseline 36 ng/L (0-10)
--- NOTE | 2023-01-21 09:05 | ECG_ITS ---
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 Measurements Intervals [place] Rate: 96 P: 61 [place]: 136 QRS: 8 QRSD: 110 T: 71 QT: 397 QTc: 502 Interpretive Statements SINUS RHYTHM POSSIBLE LEFT ATRIAL ENLARGEMENT [-0.1mV P-WAVE IN V1/V2] LEFT VENTRICULAR HYPERTROPHY AND ST-T CHANGE [VOLTAGE CRITERIA PLUS ST/T ABNORMALITY] Compared to ECG 10/06/2020 20:36:06 Short [place] interval no longer present ST (T wave) deviation still present Electronically Signed On 01-21-2023 12:31:46 CDT by Jhon Telles M.D. [email or web address] Communicationspearl river county hospitalRed Sky Labtrumbull regional [facility].MediaPhy/store/OM/[id number]
[2023-01-21 09:25] LABS: Troponin 5 2HR 34.67 ng/L (0-10)
[2023-01-21 09:26] LABS: Troponin 5 2HR Delta -1.33 ABS# (0-10)
== END 2023-01-21 10:41 | disposition home or self-care (01) ==
PROVIDERS: Emergency Provider Family Medicine; PCP Family Medicine
DX: R07.89 Other chest pain (principal); E11.22 Type 2 diabetes mellitus with diabetic chronic kidney disease; N18.6 End stage renal disease; Z85.048 Personal history of other malignant neoplasm of rectum, rectosigmoid junction, and anus; Z72.0 Tobacco use; Z79.01 Long term (current) use of anticoagulants; Z79.4 Long term (current) use of insulin
CPT/HCPCS: 36415; 71045; 80053; 84484; 85025; 93005; 99285

== ENCOUNTER → 2023-01-28 09:59 | Outpatient (BNVA) | payer MEDICARE, MEDICAID, SELFPAY | PROVIDERS: PCP Family Medicine; Visit Provider Thoracic Surgery (Cardiothoracic Vascular Surgery) | DX: E11.52 Type 2 diabetes mellitus with diabetic peripheral angiopathy with gangrene (principal); E11.621 Type 2 diabetes mellitus with foot ulcer; L97.521 Non-pressure chronic ulcer of other part of left foot limited to breakdown of skin | CPT/HCPCS: 97597 ==

== ENCOUNTER → 2023-02-04 10:06 | Outpatient (BNVA) | payer MEDICARE, MEDICAID, SELFPAY | PROVIDERS: PCP Family Medicine; Visit Provider Thoracic Surgery (Cardiothoracic Vascular Surgery) | DX: E11.52 Type 2 diabetes mellitus with diabetic peripheral angiopathy with gangrene (principal); E11.621 Type 2 diabetes mellitus with foot ulcer; L97.521 Non-pressure chronic ulcer of other part of left foot limited to breakdown of skin | CPT/HCPCS: 97597; A6252 ==

== ENCOUNTER → 2023-02-17 15:56 | Outpatient (BNVA) | payer MEDICARE, MEDICAID, SELFPAY | PROVIDERS: PCP Family Medicine; Visit Provider Nurse Practitioner Family | DX: E11.52 Type 2 diabetes mellitus with diabetic peripheral angiopathy with gangrene (principal); E11.621 Type 2 diabetes mellitus with foot ulcer; L97.521 Non-pressure chronic ulcer of other part of left foot limited to breakdown of skin | CPT/HCPCS: 97597 ==

== ENCOUNTER 2023-02-21 11:48 | Outpatient (CLI) | payer MEDICARE, MEDICAID, SELFPAY ==
--- NOTE | 2023-02-21 11:56 | XRR_ITS ---
PROCEDURE INFORMATION: Exam: XR Left Foot Exam date and time: 02/21/2023 12:00 PM Age: 47 years old Clinical indication: Condition or disease; Other: Non healing ulcer; Additional info: E11.621 - type 2 diabetes mellitus with foot ulcer, special attention to wound area at 5th metatarsal head TECHNIQUE: Imaging protocol: Radiologic exam of the left foot. Views: 3 or more views. COMPARISON: CR XR foot LT min 3V* [id number] 03/06/2021 11:24 AM FINDINGS: Bones/joints: Moderate degenerative changes at the 1st MTP joint. These have progressed since 03/06/2021, there is now flattening of the head of the 1st metatarsal with periarticular cysts. Mild interphalangeal articular surface narrowing. No acute osseous, joint, or soft tissue abnormality. Soft tissues: See Bones/joints finding. XR/XR foot LT min 3V* [id number] IMPRESSION: 1. No acute findings. 2. Increasing degenerative changes at the 1st MTP joint.
== END 2023-02-21 11:49 | disposition home or self-care (01) ==
LOC: RAD 11:49
PROVIDERS: PCP Family Medicine; Visit Provider Nurse Practitioner Family
DX: E11.621 Type 2 diabetes mellitus with foot ulcer (principal); L97.529 Non-pressure chronic ulcer of other part of left foot with unspecified severity; M19.072 Primary osteoarthritis, left ankle and foot
CPT/HCPCS: 73630

== ENCOUNTER → 2023-02-24 13:52 | Outpatient (BNVA) | payer MEDICARE, MEDICAID, SELFPAY | PROVIDERS: PCP Family Medicine; Visit Provider Nurse Practitioner Family | DX: E11.52 Type 2 diabetes mellitus with diabetic peripheral angiopathy with gangrene (principal); E11.621 Type 2 diabetes mellitus with foot ulcer; L97.521 Non-pressure chronic ulcer of other part of left foot limited to breakdown of skin | CPT/HCPCS: 97597; A6251 ==

== ENCOUNTER → 2023-03-03 14:17 | Outpatient (BNVA) | payer MEDICARE, MEDICAID, SELFPAY | PROVIDERS: PCP Family Medicine; Visit Provider Nurse Practitioner Family | DX: E11.52 Type 2 diabetes mellitus with diabetic peripheral angiopathy with gangrene (principal); E11.621 Type 2 diabetes mellitus with foot ulcer; L97.522 Non-pressure chronic ulcer of other part of left foot with fat layer exposed | CPT/HCPCS: 11042; A6210; A6252 ==

== ENCOUNTER → 2023-03-10 13:01 | Outpatient (BNVA) | payer MEDICARE, MEDICAID, SELFPAY | PROVIDERS: PCP Family Medicine; Visit Provider Thoracic Surgery (Cardiothoracic Vascular Surgery) | DX: E11.52 Type 2 diabetes mellitus with diabetic peripheral angiopathy with gangrene (principal); E11.621 Type 2 diabetes mellitus with foot ulcer; L97.522 Non-pressure chronic ulcer of other part of left foot with fat layer exposed | CPT/HCPCS: 11042; A6210; A6251 ==

== ENCOUNTER 2023-03-15 06:42 | Outpatient (CLI) | payer MEDICARE, MEDICAID, SELFPAY ==
--- NOTE | 2023-03-15 | ECG_ITS ---
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 Interpretive Statements NAME OF STUDY: LEXISCAN SESTAMIBI STRESS TEST INDICATION: [Atypical Chest Pain] Procedure: At the baseline, the blood pressure was 152/78 mmHg with a heart rate of 93 bpm. The electrocardiogram showed normal sinus rhythm, normal axis with normal ST and T's. The Lexiscan was infused over a period of 20 seconds. A total of 0.4 mg of Lexiscan was infused. The stress phase was continued for a total of 5 minutes. Heart rate was at the end of stress phase was 100 bpm and a blood pressure of 143/65 mmHg. The EKG at the peak infusion revealed normal sinus rhythm with nonspecific ST-T wave change. Sestamibi was injected 20 seconds after the Lexiscan infusion. Blood pressure at the end of recovery phase was 148/65 mmHg with a heart rate of 97 bpm. Conclusion: 1. Normal EKG response to Lexiscan infusion 2. No Lexiscan induced chest pain or cardiac arrhythmia. 3. Normal blood pressure and heart rate response. 4. Sestamibi/sestamibi perfusion scan pending; see separate report. Electronically Signed On 04-05-2023 15:58:17 RACK PULLER by Jhon Telles M.D. [id number]
[2023-03-15 06:51] VITALS: BMI 25.5
--- NOTE | 2023-03-15 06:55 | NMCV_ITS ---
NM miki perf SPECT r/s* [id number] Bharati Anthony Age: 47 Gender: F : 1975 Exam Date: 03/15/2023 07:42 Ordering Phys: Herber Hussein MD Technologist: ANTHONY Allan Exam Location: [facility] Indications: CHEST PAIN STRESS TEST Please see separate stress test report in Ephiphany for full findings IMAGE PROTOCOL Rest/Stress 1 Lexiscan Day Radiopharmaceutical Dose (mCi) Administration Site Administered by Rest: Tc-99m 10.8 IV ANTHONY Mckenzie Sestamibi Stress:Tc-99m 32.8 IV ANTHONY Allan Sestamibi Rest: 15-Mar-2023 60 Discovery 630 Stress: 15-Mar-2023 30 Discovery 630 0.4mg Lexiscan. Images obtained in supine and prone position. SPECT RESULTS Technical Quality: Excellent Raw Data Analysis: Normal Image Corrections: No attenuation or motion correction applied Summed Stress Score: 6 Summed Rest Score: 7 Summed Difference Score: 2 PERFUSION FINDINGS There is small sized fixed perfusion defect noted in apical anterior wall. This is consistent with small sized prior infarct in the LAD territory. There is small to medium sized mostly fixed perfusion defect noted in apical inferior wall. This is consistent with small to medium sized prior infarct with minimal fely-infarct ischemia in RCA territory. FUNCTIONAL RESULTS (calculated via Gated SPECT) Stress Image LV EF (%): 38 Stress EDV (mL):149 TID: 1.08 Stress ESV (mL):92 FUNCTIONAL FINDINGS: LV systolic function is mild to moderately reduced with EF of 38%. Mild to moderate global hypokinesis seen IMPRESSIONS 1. Small sized prior infarct seen in the LAD territory. No evidence of ischemia. Attenuation artifact can not be ruled out. 2. Small to medium sized area of prior infarct with minimal fely-infarct ischemia seen in the RCA territory. 2 3. LV systolic function is mild to moderately reduced with EF of 38% Jhon Telles MD (Electronically Signed) Final Date: 15 March 2023 10:57 S
[2023-03-15] MEDS: regadenoson 0.4 Mg/5 ml Syringe IVP (08:55)
[2023-03-15 09:17] VITALS: BP 143/86; PULSE 83
== END 2023-03-15 06:43 | disposition home or self-care (01) ==
PROVIDERS: Absent Provider Internal Medicine Nephrology; Family Provider Student in an Organized Health Care Education/Training Program; PCP Family Medicine; Visit Provider Family Medicine
DX: R07.89 Other chest pain (principal); I25.2 Old myocardial infarction
CPT/HCPCS: 36415; 78452; 93017; 96374; A9500; J2785

== ENCOUNTER → 2023-03-17 11:06 | Outpatient (BNVA) | payer MEDICARE, MEDICAID, SELFPAY | PROVIDERS: Family Provider Student in an Organized Health Care Education/Training Program; PCP Family Medicine; Visit Provider Nurse Practitioner Family | DX: E11.52 Type 2 diabetes mellitus with diabetic peripheral angiopathy with gangrene (principal); E11.621 Type 2 diabetes mellitus with foot ulcer; L97.521 Non-pressure chronic ulcer of other part of left foot limited to breakdown of skin | CPT/HCPCS: 97597; A6210 ==

== ENCOUNTER → 2023-03-22 14:29 | Outpatient (BNVA) | payer MEDICARE, MEDICAID, SELFPAY | PROVIDERS: Family Provider Student in an Organized Health Care Education/Training Program; PCP Family Medicine; Visit Provider Nurse Practitioner Family | DX: E11.52 Type 2 diabetes mellitus with diabetic peripheral angiopathy with gangrene (principal); E11.621 Type 2 diabetes mellitus with foot ulcer; L97.521 Non-pressure chronic ulcer of other part of left foot limited to breakdown of skin | CPT/HCPCS: 97597; A6210; A6212; A6251 ==

== ENCOUNTER → 2023-03-24 10:27 | Outpatient (BNVA) | payer MEDICARE, MEDICAID, SELFPAY | PROVIDERS: Family Provider Student in an Organized Health Care Education/Training Program; PCP Family Medicine; Visit Provider Nurse Practitioner Family | DX: E11.52 Type 2 diabetes mellitus with diabetic peripheral angiopathy with gangrene (principal); E11.621 Type 2 diabetes mellitus with foot ulcer; L97.521 Non-pressure chronic ulcer of other part of left foot limited to breakdown of skin | CPT/HCPCS: 29445; 97597; A6210; A6212; A6252 ==

== ENCOUNTER → 2023-03-28 13:13 | Outpatient (BNVA) | payer MEDICARE, MEDICAID, SELFPAY | PROVIDERS: Family Provider Student in an Organized Health Care Education/Training Program; PCP Family Medicine; Visit Provider Thoracic Surgery (Cardiothoracic Vascular Surgery) | DX: E11.52 Type 2 diabetes mellitus with diabetic peripheral angiopathy with gangrene (principal); E11.621 Type 2 diabetes mellitus with foot ulcer; L97.521 Non-pressure chronic ulcer of other part of left foot limited to breakdown of skin | CPT/HCPCS: 97597; A6251 ==

== ENCOUNTER → 2023-03-31 10:18 | Outpatient (BNVA) | payer MEDICARE, MEDICAID, SELFPAY | PROVIDERS: Family Provider Student in an Organized Health Care Education/Training Program; PCP Family Medicine; Visit Provider Nurse Practitioner Family | DX: E11.52 Type 2 diabetes mellitus with diabetic peripheral angiopathy with gangrene (principal); E11.621 Type 2 diabetes mellitus with foot ulcer; L97.521 Non-pressure chronic ulcer of other part of left foot limited to breakdown of skin | CPT/HCPCS: 29445; 97597; A6212 ==

== ENCOUNTER → 2023-04-07 10:10 | Outpatient (BNVA) | payer MEDICARE, MEDICAID, SELFPAY | PROVIDERS: Family Provider Student in an Organized Health Care Education/Training Program; PCP Family Medicine; Visit Provider Nurse Practitioner Family | DX: E11.52 Type 2 diabetes mellitus with diabetic peripheral angiopathy with gangrene (principal); E11.621 Type 2 diabetes mellitus with foot ulcer; L97.521 Non-pressure chronic ulcer of other part of left foot limited to breakdown of skin | CPT/HCPCS: 29445; 97597; A6212; A6252 ==

== ENCOUNTER → 2023-04-12 08:13 | Outpatient (BNVA) | payer MEDICARE, MEDICAID, SELFPAY | PROVIDERS: Family Provider Student in an Organized Health Care Education/Training Program; PCP Family Medicine; Visit Provider Nurse Practitioner Family | DX: E11.52 Type 2 diabetes mellitus with diabetic peripheral angiopathy with gangrene (principal); E11.621 Type 2 diabetes mellitus with foot ulcer; L97.521 Non-pressure chronic ulcer of other part of left foot limited to breakdown of skin | CPT/HCPCS: 97597 ==

== ENCOUNTER → 2023-04-21 10:34 | Outpatient (BNVA) | payer MEDICARE, MEDICAID, SELFPAY | PROVIDERS: Family Provider Student in an Organized Health Care Education/Training Program; PCP Family Medicine; Visit Provider Nurse Practitioner Family | DX: E11.52 Type 2 diabetes mellitus with diabetic peripheral angiopathy with gangrene (principal); E11.621 Type 2 diabetes mellitus with foot ulcer; L97.521 Non-pressure chronic ulcer of other part of left foot limited to breakdown of skin | CPT/HCPCS: 97597; A6210 ==

== ENCOUNTER → 2023-04-25 13:05 | Outpatient (BNVA) | payer MEDICARE, MEDICAID, SELFPAY | PROVIDERS: Family Provider Student in an Organized Health Care Education/Training Program; PCP Family Medicine; Visit Provider Nurse Practitioner Family | DX: E11.52 Type 2 diabetes mellitus with diabetic peripheral angiopathy with gangrene (principal); E11.621 Type 2 diabetes mellitus with foot ulcer; L97.521 Non-pressure chronic ulcer of other part of left foot limited to breakdown of skin | CPT/HCPCS: 29445; 97597; A6210 ==

== ENCOUNTER → 2023-05-02 12:52 | Outpatient (BNVA) | payer MEDICARE, MEDICAID, SELFPAY | PROVIDERS: Family Provider Student in an Organized Health Care Education/Training Program; PCP Family Medicine; Visit Provider Internal Medicine | DX: Z01.818 Encounter for other preprocedural examination (principal); I50.30 Unspecified diastolic (congestive) heart failure; R00.0 Tachycardia, unspecified; R06.02 Shortness of breath; F17.200 Nicotine dependence, unspecified, uncomplicated; Z86.718 Personal history of other venous thrombosis and embolism; Z79.01 Long term (current) use of anticoagulants; E11.52 Type 2 diabetes mellitus with diabetic peripheral angiopathy with gangrene; E11.621 Type 2 diabetes mellitus with foot ulcer; L97.522 Non-pressure chronic ulcer of other part of left foot with fat layer exposed | CPT/HCPCS: 11042; 99214; A6212 ==

== ENCOUNTER 2023-05-05 12:53 | Outpatient (CLI) | payer MEDICARE, MEDICAID, SELFPAY ==
--- NOTE | 2023-05-05 13:00 | USCV_ITS ---
Bharati Anthony Age: 47 Gender: F : 1975 Exam Date: 05/05/2023 13:22 Ordering Phys: Jhon Telles M.D ([email or web address]) Technologist: Lyndsey Huddleston Exam Location: [facility] [place] Indication: sob, cp BP: 126 / 62 HR: Rhythm: Sinus Technical Quality: Adequate MEASUREMENTS (Male / Female) Normal Values 2D ECHO LVOT Diameter 2.1 cm LV Ejection Fraction MOD 2C 46.5 % Aorta at Sinotubular Diameter 3.0 cm IVC Diameter 0.9 cm M-MODE LA Ao Ratio MM 1.2 AV Cusp Separation MM 1.8 cm DOPPLER AV Peak Velocity 193.0 cm/s LVOT Peak Velocity 145.0 cm/s AV Area Cont Eq vti 3.0 cm squared AV Area Cont Eq pk 2.7 cm squared MV Area PHT 5.0 cm squared Mitral E to A Ratio 1.3 TV Peak Velocity 125.2 cm/s TR Peak Velocity 135.0 cm/s TR Peak Gradient 7.3 mmHg Right Atrial Pressure 3.0 mmHg Pulmonary Artery Systolic Pressu 10.3 mmHg PV Peak Velocity 131.0 cm/s FINDINGS Left Ventricle Left ventricle is normal in size. LV systolic function is normal with EF of 50-55%. No regional wall motion abnormalities are seen. Right Ventricle Normal in size and function Right Atrium Normal in size Left Atrium Dilated Mitral Valve Structurally normal mitral valve. Mild mitral regurgitation. Aortic Valve Structurally normal aortic valve. No significant stenosis or regurgitation seen. Tricuspid Valve Mild tricuspid regurgitation. Insufficient TR jet to calculate RVSP Pulmonic Valve Not well visualized Pericardium Normal Aorta Normal in size IVC Appears to be normal CONCLUSIONS LV systolic function is normal with EF of 55%. Left atrial dilation. Mild mitral regurgitation. Mild tricuspid regurgitation. Compared to prior echocardiogram from 2019, no significant changes are seen Jhon Telles MD (Electronically Signed) Final Date: 12 May 2023 12:10 S
== END 2023-05-05 12:54 | disposition home or self-care (01) ==
LOC: RAD 12:53
PROVIDERS: Family Provider Student in an Organized Health Care Education/Training Program; PCP Family Medicine; Visit Provider Internal Medicine
DX: R07.9 Chest pain, unspecified (principal); I08.1 Rheumatic disorders of both mitral and tricuspid valves
CPT/HCPCS: 93306

== ENCOUNTER → 2023-05-09 10:55 | Outpatient (BNVA) | payer MEDICARE, MEDICAID, SELFPAY | PROVIDERS: Family Provider Student in an Organized Health Care Education/Training Program; PCP Family Medicine; Visit Provider Nurse Practitioner Family | DX: E11.52 Type 2 diabetes mellitus with diabetic peripheral angiopathy with gangrene (principal); E11.621 Type 2 diabetes mellitus with foot ulcer; L97.521 Non-pressure chronic ulcer of other part of left foot limited to breakdown of skin | CPT/HCPCS: 97597; A6210; A6212 ==

== ENCOUNTER → 2023-05-16 10:39 | Outpatient (BNVA) | payer MEDICARE, MEDICAID, SELFPAY | PROVIDERS: Family Provider Student in an Organized Health Care Education/Training Program; PCP Family Medicine; Visit Provider Nurse Practitioner Family | DX: E11.52 Type 2 diabetes mellitus with diabetic peripheral angiopathy with gangrene (principal); E11.621 Type 2 diabetes mellitus with foot ulcer; L97.522 Non-pressure chronic ulcer of other part of left foot with fat layer exposed | CPT/HCPCS: 11042; A6252 ==

== ENCOUNTER → 2023-05-23 10:16 | Outpatient (BNVA) | payer MEDICARE, MEDICAID, SELFPAY | PROVIDERS: Family Provider Student in an Organized Health Care Education/Training Program; PCP Family Medicine; Visit Provider Nurse Practitioner Family | DX: E11.52 Type 2 diabetes mellitus with diabetic peripheral angiopathy with gangrene (principal); E11.621 Type 2 diabetes mellitus with foot ulcer; L97.522 Non-pressure chronic ulcer of other part of left foot with fat layer exposed | CPT/HCPCS: 11042 ==

== ENCOUNTER → 2023-05-30 10:18 | Outpatient (BNVA) | payer MEDICARE, MEDICAID, SELFPAY | PROVIDERS: Family Provider Student in an Organized Health Care Education/Training Program; PCP Family Medicine; Visit Provider Nurse Practitioner Family | DX: E11.52 Type 2 diabetes mellitus with diabetic peripheral angiopathy with gangrene (principal); E11.621 Type 2 diabetes mellitus with foot ulcer; L97.522 Non-pressure chronic ulcer of other part of left foot with fat layer exposed | CPT/HCPCS: 11042; A6212; A6252 ==

== ENCOUNTER 2023-06-03 17:44 | Inpatient (IN) | payer MEDICARE, MEDICAID, SELFPAY ==
[2023-06-03] VITALS (8 sets, daily range): BP systolic 112–136; BP diastolic 63–79; PULSE 98–106; RESP 16–20; TEMP 36.6; O2SAT 88–93; BMI 24.6; BMI 24.9
--- NOTE | 2023-06-03 17:45 | XRR_ITS ---
PROCEDURE INFORMATION: Exam: XR Chest Exam date and time: 06/03/2023 6:23 PM Age: 47 years old Clinical indication: Chest wall pain; Additional info: Cp TECHNIQUE: Imaging protocol: Radiologic exam of the chest. Views: 1 view. COMPARISON: CR XR chest 1V portable [id number] 01/21/2023 7:31 AM FINDINGS: Tubes, catheters and devices: Central venous access catheter or port is seen on the left, as noted with prior exam. Tip of the catheter appears in good position at the expected level of the superior vena cava above the right atrium. Lungs: Mild increased markings left lung base with today's exam and remainder of the lungs appear clear. No consolidation. Pleural spaces: No pleural effusion or pneumothorax. Heart/Mediastinum: No cardiomegaly. Bones/joints: Visualized osseous structures show no acute abnormality. Mild thoracic scoliosis. XR/XR chest 1V portable [id number] IMPRESSION: Mild increased markings left lung base with today's exam, could reflect small amount basilar atelectasis or infiltrate. No acute findings otherwise. Central venous access catheter or port again noted on the left.
--- NOTE | 2023-06-03 17:48 | ECG_ITS ---
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 Measurements Intervals [place] Rate: 102 P: 57 [place]: 112 QRS: 30 QRSD: 102 T: 73 QT: 418 QTc: 545 Interpretive Statements SINUS TACHYCARDIA WITH SHORT [place] INTERVAL POSSIBLE LEFT ATRIAL ENLARGEMENT [-0.1mV P-WAVE IN V1/V2] NONSPECIFIC ST & T-WAVE ABNORMALITY Compared to ECG 01/21/2023 09:05:28 Short [place] interval now present T-wave abnormality now present Sinus rhythm no longer present Left ventricular hypertrophy no longer present ST (T wave) deviation no longer present Electronically Signed On 06-03-2023 22:00:31 CDT by Jhon Telles M.D. [id number] f
[2023-06-03 19:08] LABS: Basophils % 0.4 %; Eosinophils # 0.2 10^3/uL (0.0-0.8); Eosinophils % 2.2 %; Hematocrit 35.1 % (36-47); Lymphocytes # 1.4 10^3/uL (0.8-4.8); Lymphocytes % 13.1 %; Mean Corpuscular Hemoglobin 34.9 pg (27-33); Mean Corpuscular Volume 105.7 fl (85-98); Mean Platelet Volume 9.7 fL (7.4-10.4); Monocytes # 0.5 10^3/uL (0.2-0.9); Monocytes % 5.1 %; Neutrophils # 8.16 10^3/uL (1.8-7.7); Neutrophils % 78.4 %; Nucleated Red Blood Cells % 0 %; Platelet Count 181 10^3/cmm (157-399); Red Blood Count 3.32 10^6/uL (3.85-5.65); Red Cell Distribution Width 14.8 % (12.1-15.1)
--- NOTE | 2023-06-03 19:13 | ECG_ITS ---
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 Measurements Intervals [place] Rate: 97 P: 54 OR: 116 QRS: 30 QRSD: 110 T: 71 QT: 442 QTc: 564 Interpretive Statements SINUS RHYTHM WITH SHORT OR INTERVAL NONSPECIFIC ST & T-WAVE ABNORMALITY PROLONGED QT INTERVAL Compared to ECG 06/03/2023 17:48:53 Prolonged QT interval now present Sinus tachycardia no longer present T-wave abnormality still present Electronically Signed On 06-03-2023 22:02:57 CDT by Jhon Telles M.D. [email or web address] Capitalencompass health rehabilitation hospitalAugmatepremier health.ActBlue/store/[id number]
[2023-06-03 19:25] LABS: INR 1.03 (0.8-1.2)
[2023-06-03 19:30] LABS: Troponin(5th) Baseline 49 ng/L (0-10)
[2023-06-03 19:44] LABS: Alanine Aminotransferase 19 U/L (0-33); Albumin Level 4.3 g/dL (3.5-5.2); Alkaline Phosphatase 65 U/L (35-105); Anion Gap 16.8 (5-19); Aspartate Amino Transferase 20 U/L (0-32); Blood Urea Nitrogen 26 mg/dL (6-20); Calcium 9.3 mg/dL (8.5-10.5); Carbon Dioxide 33 mmol/L (22-29); Chloride 97 mmol/L (98-107); Creatinine Clr Calc Pharmacy 21.7284; Globulin 3.1 g/dL (1.3-4.6); Glomerular Filtration Rate 13.9 mL/min (90-130); Glucose 134 mg/dL (65-115); Lipase 41 U/L (13-60); NT Pro B Type Natriuretic Pept 5804 pg/mL (0-125); Osmolality Calculated 303 mOsm/kg (285-295); Potassium 3.8 mmol/L (3.5-5.1); Sodium 143 mmol/L (136-145); Total Bilirubin 0.4 mg/dL (0.15-1.2); Total Protein 7.4 g/dL (6.6-8.7)
[2023-06-03] MEDS: FUROsemide 10 mg/mL SDV 4mL 40 MG IVP (20:33)
[2023-06-03 21:05] LABS: Troponin 5 2HR 49.48 ng/L (0-10); Troponin 5 2HR Delta 0.48 ABS# (0-10)
--- NOTE | 2023-06-03 21:05 | ED_ITS ---
HPI - SOB/Dyspnea 2 General: Chief Complaint: Shortness of Breath/Dyspnea Stated Complaint: chest pains, sob Time Seen by Provider: 06/03/23 19:40 History of Present Illness: HPI Narrative: 47-year-old female presents emergency de partment with complaints of increased shortness of breath worsening throughout the day today. She states that she has dialysis on Tuesday and Tuesday and did complete her dialysis today. She states she did get an argument with a family member and had resultant intermittent chest pain. She states she is also had a nonproductive harsh dry cough for the previous 2 days. She states she feels like she is very rundown and tired. She states that her shortness of breath is worse with exertion. She states that her chest pain that initially occurred was a 3 out of 10 and pressure and has since resolved. She denies fevers chills or night sweats. She states that she just feels like she is unable to catch her breath. She states that over the previous 2 days she is also had significant difficulty with her speech and has lost her voice. Associated symptoms: Reports chest pain Review of Systems 2 General: Reports: 10 or more systems reviewed and unremarkable except in HPI and below Const: Reports: body aches, fatigue and malaise ENMT: Reports: hoarseness Card: Reports: chest pain, edema and swelling of feet/ankles Resp: Reports: dyspnea, non-productive cough and wheezing PFSH ED 2 PFSH: Medical History Tachycardia Diabetes Deep vein thrombosis (DVT) during Chronic anticoagulation Squamous cell carcinoma of anal canal Diabetes mellitus End-stage renal disease Surgical History Status post surgery (05/19/20) Removal of peritoneal dialysis catheter Port-A-Cath in place S/P hemodialysis catheter insertion (01/09/20) Removed 11/18/2020 Peritoneal dialysis status H/O colonoscopy H/O hand surgery History of hip surgery History of hysterectomy Family History Other Cancer Diabetes Denies family history of Anesthesia complication Bleeding disorder Social History Smoking and tobacco/nicotine status: current every day tobacco/nicotine user Alcohol intake: never Substance/Drug Use: never Household members: family Marital status: Single Current occupational status: disabled Physical Exam 2 Narrative: EXAM NARRATIVE: Constitutional: the patient appears well nourished and of normal development. She does appear mildly uncomfortable and ill. Vital signs as documented. She does have increased work of breathing at present. Alert and oriented-to person, place, time and situation. Head, eyes, ears, nose, mouth, throat: Normocephalic, atraumatic. Pupils-equal, round, reactive to light. No scleral icterus. Normal-appearing external ears. Normal appearing nasal turbinates, no drainage. No obvious oral lesions, posterior oropharynx without exudates, but she does have significant erythema noted to the posterior oropharynx. Neck: Supple, trachea is midline, no lymphadenopathy, no jugular venous distension, thyromegaly, or carotid bruits. Carotid upstrokes are brisk bilaterally. Lungs: Decreased bilaterally in the bases, scattered expiratory wheezes and rails noted. Symmetrical rise and fall of chest, tachypnea-obvious signs of increased work of breathing at present. Cardiac: Regular rate and rhythm, positive S1, S2. No murmurs, rubs or gallops that I can appreciate Abdomen: Soft, non-tender to palpation, normal active bowel sounds to all quadrants. No palpable masses, no organomegaly and abdominal bruits. Extremities: 2+ pulses in the upper extremities that are equal bilaterally, 2+ pulses in the lower extremities that are equal bilaterally. Trace bilateral lower extremity edema. Moves all extremities well, sensation to all extremities are noted. Skin: Warm, dry, left foot with healing wound, Course 2 Vital Signs: Vital signs: Vital Signs Temperature 97.8 F 06/04/23 03:53 Pulse Rate 93 06/04/23 03:53 Respiratory Rate 16 06/04/23 03:53 Blood Pressure 160/89 06/04/23 03:53 Pulse Oximetry 93 06/04/23 03:53 Oxygen Delivery Me thod Nasal Cannula 06/04/23 03:53 Oxygen Flow Rate 2 06/03/23 21:45 MDM - SOB/Dyspnea Medical Decision Making Physical exam completed and documented patient is requiring supplemental oxygen which is new for her chest x-ray did show significant vascular congestion she did complete her dialysis on Tuesday and Tuesday as scheduled but still feels short of breath. She does endorse recent productive cough with green sputum. Given the patient's increased work of breathing and hypoxemia and elevated BNP I did contact the hospitalist physician to request admission for additional evaluation treatment and care to potentially include an additional time. For dialysis for fluid volume excess removal. Medical Records I reviewed the patient's medical records. Lab Data I reviewed the patient's lab results. 06/04/23 04:26 06/04/23 04:26 Labs/Radiology: Radiology Impressions Chest X-Ray 06/03/23 17:45 IMPRESSION: Mild increased markings left lung base with today's exam, could reflect small amount basilar atelectasis or infiltrate. No acute findings otherwise. Central venous access catheter or port again noted on the left. Chest CT 06/03/23 22:39 IMPRESSION: 1. Predominantly interstitial infiltrates with some mucous plugging is seen in the left lung compatible with interstitial pneumonia. 2. Probable bilateral basilar atelectasis, left more prominent than right. Laboratory Results WBC 10.40 10^3/uL (3.29-11.43) 06/03/23 18:56 RBC 3.32 10^6/uL (3.85-5.65) L 06/03/23 18:56 Hgb 11.60 g/dL (11.27-16.99) 06/03/23 18:56 Hct 35.1 % (36-47) L 06/03/23 18:56 MCV 105.7 fl (85-98) H 06/03/23 18:56 MCH 34.9 pg (27-33) H 06/03/23 18:56 MCHC 33.0 g/dL (30-55) 06/03/23 18:56 RDW 14.8 % (12.1-15.1) 06/03/23 18:56 Plt Count 181 10^3/cmm (157-399) 06/03/23 18:56 MPV 9.7 fL (7.4-10.4) 06/03/23 18:56 Neut % (Auto) 78.4 % 06/03/23 18:56 Lymph % (Auto) 13.1 % 06/03/23 18:56 Rutherford % (Auto) 5.1 % 06/03/23 18:56 Eos % (Auto) 2.2 % 06/03/23 18:56 Baso % (Auto) 0.4 % 06/03/23 18:56 Neut # (Auto) 8.16 10^3/uL (1.8-7.7) H 06/03/23 18:56 Lymph # (Auto) 1.4 10^3/uL (0.8-4.8) 06/03/23 18:56 Rutherford # (Auto) 0.5 10^3/uL (0.2-0.9) 06/03/23 18:56 Eos # (Auto) 0.2 10^3/uL (0.0-0.8) 06/03/23 18:56 Baso # (Auto) 0.0 10^3/uL (0.0-0.1) 06/03/23 18:56 Nucleated RBC % (auto) 0 % 06/03/23 18:56 Nucleated RBCs # 0.0 /100WBC 06/03/23 18:56 PT 13.90 SECONDS (12.1-14.9) 06/03/23 18:56 INR 1.03 (0.8-1.2) 06/03/23 18:56 D-Dimer 0.99 ug/mLFEU (0-0.59) H 06/03/23 18:56 Specimen Type Arterial 06/03/23 21:25 Sample Site Brachial, right 06/03/23 21:25 ABG pH 7.54 (7.35-7.45) H 06/03/23 21:25 ABG pCO2 40.5 mmHg (35-45) 06/03/23 21:25 ABG pO2 51.1 mmHg (80.0-100.0) L 06/03/23 21:25 ABG PO2/FiO2 Ratio 0 06/03/23 21:25 ABG HCO3 34.1 mmol/L (22-26) H 06/03/23 21:25 ABG O2 Saturation 89.0 06/03/23 21:25 ABG Base Excess 10.6 mmol/L (-2.0-2.0) H 06/03/23 21:25 Benjamin Test Pos 06/03/23 21:25 A-a O2 Gradient 6.4 mmHg (5-10) 06/03/23 21:25 Hematocrit 34.0 % (37-47) L 06/03/23 21:25 Hgb O2 Saturation 87.1 % (95-100) L 06/03/23 21:25 Carboxyhemoglobin 1.7 %THgb (0.4-20.1) 06/03/23 21:25 Methemoglobin 0.4 % (0.4-1.5) 06/03/23 21:25 Total Hemoglobin 11.1 g/dL (12-16) L 06/03/23 21:25 Sodium 144.0 mmol/L (131-143) H 06/03/23 21:25 Potassium 3.5 mmol/L (3.5-5.0) 06/03/23 21:25 Glucose 104.0 mg/dL (70-115) 06/03/23 21:25 Ionized Calcium 1.1 mmol/L (1.1-1.4) 06/03/23 21:25 O2 Delivery Device None 06/03/23 21:25 FiO2 21.0 % 06/03/23 21:25 Alteration Tailor Apprentice ID [email or web address] 06/03/23 21:25 Sodium 143 mmol/L (136-145) 06/03/23 18:56 Potassium 3.8 mmol/L (3.5-5.1) 06/03/23 18:56 Chloride 97 mmol/L (98-107) L 06/03/23 18:56 Carbon Dioxide 33 mmol/L (22-29) H 06/03/23 18:56 Anion Gap 16.8 (5-19) 06/03/23 18:56 BUN 26 mg/dL (6-20) H 06/03/23 18:56 Creatinine 3.5 mg/dL (0.5-0.9) H 06/03/23 18:56 GFR Calculation 13.9 mL/min (90-130) L 06/03/23 18:56 Glucose 134 mg/dL (65-115) H 06/03/23 18:56 Estimat Average Glucose 97 06/03/23 18:56 Hemoglobin A1c 5.0 % (4.0-6.0) 06/03/23 18:56 Calculated Osmolality 303 mOsm/kg (285-295) H 06/03/23 18:56 Calcium 9.3 mg/dL (8.5-10.5) 06/03/23 18:56 Total Bilirubin 0.4 mg/dL (0.15-1.2) 06/03/23 18:56 AST 20 U/L (0-32) 06/03/23 18:56 ALT 19 U/L (0-33) 06/03/23 18:56 Alkaline Phosphatase 65 U/L (35-105) 06/03/23 18:56 Troponin T Baseline 49 ng/L (0-10) H 06/03/23 18:56 Troponin T 120 Minute 49.48 ng/L (0-10) H 06/03/23 20:25 Delta Troponin T 0.48 ABS# (0-10) 06/03/23 20:25 NT-Pro-B Natriuret Pep 5804 pg/mL (0-125) H 06/03/23 18:56 Total Protein 7.4 g/dL (6.6-8.7) 06/03/23 18:56 Albumin 4.3 g/dL (3.5-5.2) 06/03/23 18:56 Globulin 3.1 g/dL (1.3-4.6) 06/03/23 18:56 Lipase 41 U/L (13-60) 06/03/23 18:56 Influenza Type A Ag negative (Negative) 06/03/23 21:10 Influenza Type B Ag negative (Negative) 06/03/23 21:10 SARS-CoV-2 Ag (Rapid) negative (Negative) 06/03/23 21:10 Group A Strep Rapid Negative (Negative) 06/03/23 21:10 All radiology interpretation(s) finalized by discharge Discharge Plan Discharge Patient Disposition: Admitted As Inpatient Admit Provider: Dayana Grady Clinical Impression: Hypoxemia, Congestive heart failure Condition: Stable Coding Level of Care Code ED Post Acute Care Nurse Practitioner for Chuy Fitch
[2023-06-03] MEDS: ipratropium-albuterol 3 mL Neb INHALATION (21:15)
[2023-06-03 21:31] LABS: ABG PCO2 40.5 mmHg (35-45); ABG PH Result 7.54 (7.35-7.45); Alveolar-Arterial Oxygen Gradi 6.4 mmHg (5-10); Base Excess ABG 10.6 mmol/L (-2.0-2.0); Blood Gas Allen Test Pos; Blood Gas Sample Site Brachial, right; Blood Gas Sample Type Arterial; Carboxyhemoglobin 1.7 %THgb (0.4-20.1); HCO3 ABG 34.1 mmol/L (22-26); HGB O2 Sat 87.1 % (95-100); Ionized Calcium Level - ABG 1.1 mmol/L (1.1-1.4); Methemoglobin 0.4 % (0.4-1.5); PO2 ABG 51.1 mmHg (80.0-100.0); PO2 FiO2 Ratio Arterial Blood 0; Potassium Level - ABG 3.5 mmol/L (3.5-5.0); Total Hemoglobin 11.1 g/dL (12-16)
[2023-06-03 21:35] LABS: Rapid Strep A Test Negative (Negative)
[2023-06-03 21:49] LABS: Influenza A by IFA negative (Negative); Influenza B by IFA negative (Negative); SARS Covid-2 Antigen negative (Negative)
--- NOTE | 2023-06-03 22:11 | P.HP_ITS ---
Providers/Chief Complaint 2 Primary Care Provider: Herber Hussein MD Chief Complaint: chest pains, sob History of Present Illness Bharati Anthony is a 47 year old female Eliquis for DVT, end-stage renal disease Tuesday did not miss dialysis, presented to hospital for shortness of breath, in the ER , requiring 2-3 L,Patient has been noticing productive cough with sputum production. Patient stating that since last Tuesday she has been experiencing cold/common cold symptoms with lethargy fatigue cough productive cough green sputum production, she noticed fever as well on Tuesday, today her voice has changed and her cough is bothering her to the point she came to the hospital for further evaluation Of the time of evaluation patient is requiring 3 L O2 saturation 88%, I have requested CT chest without contrast Consulted nephro as well clinically does not look fluid overloaded No active chest pain, afebrile, troponin without seen delta, EKG unremarkable Review of Systems 2 Const: Reports: fever(s), chills, fatigue and malaise Eyes: Denies: change in vision ENMT: Reports: throat pain and hoarseness Card: Denies: chest pain Resp: Reports: dyspnea and wheezing GI: Denies: abdominal pain : Denies: flank pain Medications/Allergies Home Medications Medication Instructions Recorded Confirmed Last Taken Type Diabetic Shoes #1 ea 06/19/19 01/21/23 Unknown Rx acetaminophen 325 mg capsule 325 mg PO QID PRN Pain 06/19/19 05/02/23 05/17/20 History blood-glucose meter (OneTouch #1 ea 06/19/19 01/21/23 Unknown History UltraMini kit) citalopram 40 mg tablet 40 mg PO DAILY 06/19/19 05/02/23 01/20/23 History pantoprazole 40 mg tablet,delayed 40 mg PO BID 06/19/19 05/02/23 01/20/23 History release sodium bicarbonate 650 mg tablet 650 mg PO DAILY PRN Dialysis 09/18/19 05/02/23 01/20/23 History apixaban 2.5 mg tablet (Eliquis) 2.5 mg PO BID 12/11/19 05/02/23 01/20/23 History insulin lispro 100 unit/mL 5 unit SUBCUT BID PRN Blood Sugar 12/11/19 05/02/23 05/18/20 History subcutaneous solution (Humalog >200 U-100 Insulin) semaglutide 1 mg/dose (2 mg/1.5 1 mg SUBCUT Q7D 12/11/19 05/02/23 01/15/23 History mL) subcutaneous pen injector (Ozempic) alprazolam 0.25 mg tablet (Xanax) 0.25 mg PO BID PRN Anxiety 04/01/20 05/02/23 01/20/23 History diphenhydramine HCl 25 mg capsule 25 mg PO TID PRN Itching 04/01/20 05/02/23 05/17/20 History (Benadryl) carvedilol 3.125 mg tablet (Coreg) 3.125 mg PO BID 05/30/20 05/02/23 01/20/23 History amlodipine 5 mg tablet 5 mg PO DAILY 01/21/23 05/02/23 01/20/23 History hydralazine 25 mg tablet 25 mg PO TID 01/21/23 05/02/23 01/20/23 History melatonin 10 mg capsule 10 mg PO DAILY 01/21/23 05/02/23 Unknown History ondansetron HCl 4 mg tablet 4 mg PO Q8H PRN Nausea 01/21/23 01/21/23 Unknown History ropinirole 0.25 mg tablet 0.25 mg PO BEDTIME 01/21/23 05/02/23 01/20/23 History sevelamer carbonate 800 mg tablet 1,600 mg PO TID 01/21/23 01/21/23 01/20/23 History sitagliptin phosphate 25 mg tablet 25 mg PO DAILY 01/21/23 05/02/23 01/20/23 History (Januvia) vit B,C-folic ac 800 mcg-zinc 12.5 1 tab PO DAILY 01/21/23 05/02/23 01/20/23 History mg-selen-D3 2,000 unit-vit E tablet (RenaPlex-D) promethazine 25 mg tablet 25 mg PO QID PRN 05/02/23 05/02/23 Unknown History Allergies Allergy/AdvReac Type Severity Reaction Status Date / Time adhesive tape Allergy Unknown blisters Verified 06/03/23 18:01 Cephalosporins Allergy Unknown unknown Verified 06/03/23 18:01 doxycycline Allergy ADR-Vomitin Verified 06/03/23 18:01 g latex Allergy blisters Verified 06/03/23 18:01 PFSH Acute 2 PFSH: Medical History Tachycardia Diabetes Deep vein thrombosis (DVT) during Chronic anticoagulation Squamous cell carcinoma of anal canal Diabetes mellitus End-stage renal disease Surgical History Status post surgery (05/19/20) Removal of peritoneal dialysis catheter Port-A-Cath in place S/P hemodialysis catheter insertion (01/09/20) Removed 11/18/2020 Peritoneal dialysis status H/O colonoscopy H/O hand surgery History of hip surgery History of hysterectomy Family History Other Cancer Diabetes Denies family history of Anesthesia complication Bleeding disorder Social History Smoking and tobacco/nicotine status: current every day tobacco/nicotine user Alcohol intake: never Substance/Drug Use: never Household members: family Marital status: Single Current occupational status: disabled Vitals/I&O/Wt Last Vital Signs Temp 97.8 F 06/03/23 17:50 Pulse 100 06/03/23 21:45 Resp 16 06/03/23 21:45 BP 115/63 06/03/23 21:45 Pulse Ox 88 L 06/03/23 21:45 O2 Del Method Nasal Cannula 06/03/23 21:45 O2 Flow Rate 2 06/03/23 21:45 Weight last 48 hrs Weight 75.75 kg Physical Exam 2 Narrative: Clinically patient does not look fluid overloaded Currently on 3 L Active wheezing Pleasant cough Hoarseness of voice Conversation Nonfocal neuroexam No active chest pain Afebrile Hemodynamically stable No active chest pain S1, S2 sinus tachycardia Data 06/03/23 18:56 06/03/23 18:56 A&P Assessment and plan (1) Tachycardia: (2) Chronic anticoagulation: (3) DVT (deep venous thrombosis): (4) Bronchitis: (5) Hypoxia: (6) Chronic ulcer of great toe of left foot with fat layer exposed: Plan Bronchitis causing COPD exacerbation Rule out pneumonia Will request CT chest without contrast Fever, hoarseness of voice, sputum production, active wheezing I will put her on azithromycin Patient's history of allergic to cephalosporins and doxycycline Acute hypoxia related to bronchitis Patient clinically does not look fluid overloaded Mild interstitial edema Patient was given Lasix in the ER she still makes a little bit of urine End-stage renal disease Tuesday, She has not missed any of her dialysis sessions Patient follows up with wound care clinic for left metatarsal plantar surface wound recent visit 05/29 callus was debrided Patient has been instructed to use derma blue, foam, 4 x 4, methylene blue, gentian bebe, silver meconium to cover the entire wound History of DVT continue Eliquis History of diabetes: I will put her on Lantus and sliding scale with the steroids her sugar will need to be monitored closely Patient carries history of preserved congestive heart failure however no active exacerbation Antibiotics will be changed after reviewing CT scan report Full code Renal diet Nephro consulted in case we need to do a contrast study and dialyze her over the weekend no acute indication for dialysis DVT prophylaxis sufficed with Eliquis History of anal cancer no acute exacerbation Attestations 2 Medical Necessity Statement*: More than 2 midnights anticipated for acute hypoxia, bronchitis, wheezing Diagnoses Tachycardia R00.0 Chronic anticoagulation Z79.01 DVT (deep venous thrombosis) I82.409 Bronchitis J40 Hypoxia R09.02 Chronic ulcer of great toe of left foot with fat layer exposed L97.522
[2023-06-03 22:36] LABS: D Dimer 0.99 ug/mLFEU (0-0.59)
--- NOTE | 2023-06-03 22:39 | CTR_ITS ---
PROCEDURE INFORMATION: Exam: CT Chest Without Contrast; Diagnostic Exam date and time: 06/03/2023 10:47 PM Age: 47 years old Clinical indication: Cough and shortness of breath; Prior surgery; Surgery date: 6+ months; Surgery type: Port; Patient HX: Cough with SOB and hypoxia. Esrd. History of rectal cancer. ; Additional info: Pna TECHNIQUE: Imaging protocol: Diagnostic computed tomography of the chest without contrast. Radiation optimization: All CT scans at this facility use at least one of these dose optimization techniques: automated exposure control; mA and/or kV adjustment per patient size (includes targeted exams where dose is matched to clinical indication); or iterative reconstruction. COMPARISON: CT chest abdpel w/*[id number] 01/11/2020 9:48 AM RADIATION DOSE METRICS: Total DLP (mGy-cm): 391.69 FINDINGS: Tubes, catheters and devices: A catheter is placed via the left internal jugular vein with its tip at the level of the superior vena cava. Lungs: There are increased interstitial opacities seen in the left hemithorax, most notably present within the left lower lobe. Superimposed scattered nodular densities are present that likely represents airspace disease and mucous plugging. These findings suggest a left-sided interstitial pneumonia. There are some strandy opacities present in the left lung base is well the most probably represents atelectasis. Some hazy opacities are seen in the posterior costophrenic recesses that may represent atelectasis as well. Pleural spaces: See Lungs finding. Heart: Unremarkable. No cardiomegaly. No pericardial effusion. Coronary arteries: Moderate coronary artery calcifications are seen. Lymph nodes: Unremarkable. No enlarged lymph nodes. Vasculature: Unremarkable. No aortic aneurysm. Bones/joints: Unremarkable. No acute fracture. Soft tissues: Unremarkable. CT/CT chest wo con [id number] IMPRESSION: 1. Predominantly interstitial infiltrates with some mucous plugging is seen in the left lung compatible with interstitial pneumonia. 2. Probable bilateral basilar atelectasis, left more prominent than right.
[2023-06-03 23:45] LABS: Estmated Average Glucose 97
[2023-06-04] VITALS (14 sets, daily range): BP systolic 107–161; BP diastolic 50–89; PULSE 88–96; RESP 16–20; TEMP 36.2–37.4; O2SAT 90–96
[2023-06-04] MEDS: methylPREDNISolone sod succ 60 MG in water for injection-sterile 0.96 ML 11.5199999999999996 MG IVP (00:17)
[2023-06-04] MEDS: insulin glargine 100 units/1 mL 10 UNIT SUBCUT (00:26)
[2023-06-04 00:27] LABS: Glucose Point of Care 132 mg/dL (70-110)
[2023-06-04] MEDS: acetaminophen 500 mg Tablet PO ×2 (00:30→10:35)
[2023-06-04 04:51] LABS: Basophils % 0.2 %; Eosinophils % 0.4 %; Hematocrit 33.9 % (36-47); Lymphocytes # 0.8 10^3/uL (0.8-4.8); Lymphocytes % 7.9 %; Mean Corpuscular HGB Conc 32.7 g/dL (30-55); Mean Corpuscular Hemoglobin 35.4 pg (27-33); Mean Platelet Volume 9.8 fL (7.4-10.4); Monocytes # 0.2 10^3/uL (0.2-0.9); Neutrophils # 8.41 10^3/uL (1.8-7.7); Neutrophils % 88.6 %; Nucleated Red Blood Cells % 0 %; Platelet Count 159 10^3/cmm (157-399); Red Blood Count 3.14 10^6/uL (3.85-5.65); Red Cell Distribution Width 14.7 % (12.1-15.1)
[2023-06-04 05:15] LABS: Anion Gap 15.9 (5-19); Blood Urea Nitrogen 29 mg/dL (6-20); Calcium 9.2 mg/dL (8.5-10.5); Carbon Dioxide 29 mmol/L (22-29); Chloride 100 mmol/L (98-107); Glomerular Filtration Rate 11.3 mL/min (90-130); Glucose 186 mg/dL (65-115); Magnesium 1.9 mg/dL (1.7-2.3); Osmolality Calculated 303 mOsm/kg (285-295); Potassium 3.9 mmol/L (3.5-5.1); Sodium 141 mmol/L (136-145)
[2023-06-04 05:16] LABS: Creatinine Clr Calc Pharmacy 18.3744
[2023-06-04 06:27] LABS: Glucose Point of Care 207 mg/dL (70-110)
[2023-06-04 07:08] LABS: Adenovirus Not Detected (NOT DETECT); Chlamydia Pneumoniae Not Detected (NOT DETECT); Coronavirus 229E,HKU1,NL63,OC4 Not Detected (NOT DETECT); Human Metapneumovirus Not Detected (NOT DETECT); Human Rhinovirus/Enterovirus Not Detected (NOT DETECT); Influenza A Not Detected (NOT DETECT); Influenza A H1 Not Detected (NOT DETECT); Influenza A H1-2009 Not Detected (NOT DETECT); Influenza A H3 Not Detected (NOT DETECT); Influenza B Not Detected (NOT DETECT); Mycoplasma Pneumoniae Not Detected (NOT DETECT); Parainfluenza Virus Type 1 Not Detected (NOT DETECT); Parainfluenza Virus Type 2 Not Detected (NOT DETECT); Parainfluenza Virus Type 3 Not Detected (NOT DETECT); Parainfluenza Virus Type 4 Not Detected (NOT DETECT); Respiratory Syncytial Virus A Not Detected (NOT DETECT); Respiratory Syncytial Virus B Not Detected (NOT DETECT); SARS-COV-2 Not Detected (NOT DETECT)
[2023-06-04] MEDS: budesonide 0.5 mg/2 mL Neb INHALATION ×2 (08:16→19:59)
[2023-06-04] MEDS: ipratropium-albuterol 3 mL Neb INHALATION ×2 (08:16→15:29)
[2023-06-04] MEDS: azithromycin 250 mg Tablet 500 MG PO (09:19)
[2023-06-04] MEDS: citalopram 20 mg Tablet 40 MG PO (09:19)
[2023-06-04] MEDS: apixaban 5 mg Tablet 2.5 MG PO ×2 (09:20→20:09)
[2023-06-04] MEDS: predniSONE 20 mg Tablet 40 MG PO (09:20)
[2023-06-04] MEDS: carvedilol 3.125 mg Tablet PO ×2 (09:21→17:07)
[2023-06-04] MEDS: hyDRALAzine 25 mg Tablet PO ×3 (09:21→20:09)
[2023-06-04] MEDS: insulin lispro 100 unit/1 mL SUBCUT ×2 (09:21→17:07)
[2023-06-04 11:06] LABS: Glucose Point of Care 195 mg/dL (70-110)
[2023-06-04] MEDS: guaiFENesin 600 mg Tablet 1200 MG PO ×2 (11:21→17:07)
[2023-06-04 16:56] LABS: Glucose Point of Care 265 mg/dL (70-110)
[2023-06-04] MEDS: ALPRAZolam 0.5 mg Tablet 0.25 MG PO (19:34)
[2023-06-04 19:55] LABS: Glucose Point of Care 212 mg/dL (70-110)
[2023-06-04] MEDS: sodium chloride 3.5% neb 4 mL Neb INHALATION (19:59)
[2023-06-04] MEDS: sevelamer 800 mg Tablet 1600 MG PO (20:09)
[2023-06-04] MEDS: ropinirole 0.25 mg Tablet PO (20:09)
--- NOTE | 2023-06-04 20:47 | P.PN_ITS ---
Subjective 2 Subjective: She is coughing, bringing up phlegm. Not feeling any better. Vitals/I&O/Wt Last Vital Signs Temp 98.6 F 06/04/23 20:06 Pulse 96 06/04/23 20:06 Resp 17 06/04/23 20:06 BP 107/50 06/04/23 20:06 Pulse Ox 94 06/04/23 20:06 O2 Del Method Nasal Cannula 06/04/23 20:03 O2 Flow Rate 2 06/04/23 20:03 06/04/23 06/04/23 06/04/23 06:59 14:59 22:59 Intake Total 240.96 / 240.96 960 / 960 Output Total 1300 / 1300 Balance -1059.04 / -1059.04 960 / 960 Weight last 48 hrs Weight 78.335 kg Weight 76.566 kg Weight 75.75 kg Physical Exam 2 Const: COMMON NORMALS: patient oriented x3 and alert GENERAL APPEARANCE: c ooperative ORIENTATION/CONSCIOUSNESS: Yes awake HENMT: COMMON NORMALS: oropharynx normal Neck/C-Spine: COMMON NORMALS: no JVD Resp: AUSCULTATION: rhonchi Cardio: COMMON NORMALS: no JVD, regular rhythm, S1 normal heart sound present, S2 normal heart sound present and No murmurs present (Cardio) RHYTHM: regular rhythm HEART SOUNDS: S1 normal heart sound present and S2 normal heart sound present GI: COMMON NORMALS: Normal to inspection, nondistended, normoactive bowel sounds present, Soft to palpation and non-tender PALPATION: Yes Soft to palpation Extremity: COMMON NORMALS: no joint enlargement and no pedal edema OTHER: LLE compressive dressing, with chronic wound. Neuro: COMMON NORMALS: patient oriented x3 and moves all extremities S ENSORIUM/ORIENTATION: Yes alert Skin: COMMON NORMALS: no rashes or lesions noted GENERAL SKIN EXAM: no rashes or lesions noted Data 06/04/23 04:26 06/04/23 04:26 Micro: Microbiology 06/04/23 11:04 Gram Stain - Final Sputum - Expectorated Sputum A&P Assessment and plan (1) Tachycardia: (2) Chronic anticoagulation: (3) DVT (deep venous thrombosis): (4) Bronchitis: (5) Hypoxia: (6) Chronic ulcer of great toe of left foot with fat layer exposed: Plan Without improvement. Still with new hypoxia, requiring 2 L of oxygen. Not normally on oxygen. Bronchitis causing COPD exacerbation, CT chest with interstitial infiltrates, mucous plugging in left lung. Interstitial pneumonia. Reviewed respiratory viral panel, negative. Reviewed vitals, CBC, ABG, BMP, magnesium. Continue breathing treatments, azithromycin, add guaifenesin, hypertonic saline nebs. Add flutter valve. Add diet. Fever, hoarseness of voice, sputum production, active wheezing Azithromycin Patient's history of allergic to cephalosporins and doxycycline Acute hypoxia related to bronchitis Patient clinically does not look fluid overloaded Mild interstitial edema Received Lasix in the ER. Reassess volume status. End-stage renal disease Tuesday, She has not missed any of her dialysis sessions Patient follows up with wound care clinic for left metatarsal plantar surface wound recent visit 05/29 callus was debrided Patient has been instructed to use derma blue, foam, 4 x 4, methylene blue, gentian bebe, silver meconium to cover the entire wound History of DVT continue Eliquis History of diabetes: I will put her on Lantus and sliding scale with the steroids her sugar will need to be monitored closely Patient carries history of preserved congestive heart failure however no active exacerbation Antibiotics will be changed after reviewing CT scan report Full code Renal dialysis diabetic diet DVT prophylaxis sufficed with Eliquis History of anal cancer no acute exacerbation Attestations 2 Medical Necessity Statement*: Continue admission for assessment management of bronchitis, interstitial pneumonia with new hypoxia in a lady with underlying ESRD. Diagnoses Tachycardia R00.0 Chronic anticoagulation Z79.01 DVT (deep venous thrombosis) I82.409 Bronchitis J40 Hypoxia R09.02 Chronic ulcer of great toe of left foot with fat layer exposed L97.522
[2023-06-05] VITALS (7 sets, daily range): BP systolic 140–169; BP diastolic 72–90; PULSE 90–98; RESP 17–20; TEMP 36.4–36.5; O2SAT 91–93
[2023-06-05 02:12] LABS: Basophils % 0.3 %; Eosinophils % 0.1 %; Hematocrit 37.7 % (36-47); Lymphocytes # 1.4 10^3/uL (0.8-4.8); Mean Corpuscular HGB Conc 32.9 g/dL (30-55); Mean Corpuscular Hemoglobin 35.7 pg (27-33); Mean Corpuscular Volume 108.6 fl (85-98); Mean Platelet Volume 9.8 fL (7.4-10.4); Monocytes # 0.6 10^3/uL (0.2-0.9); Monocytes % 3.6 %; Neutrophils # 13.49 10^3/uL (1.8-7.7); Neutrophils % 85.8 %; Nucleated Red Blood Cells % 0 %; Platelet Count 248 10^3/cmm (157-399); Red Blood Count 3.47 10^6/uL (3.85-5.65); Red Cell Distribution Width 14.5 % (12.1-15.1); White Blood Count 15.72 10^3/uL (3.29-11.43)
[2023-06-05 02:32] LABS: Blood Urea Nitrogen 50 mg/dL (6-20); Calcium 9.9 mg/dL (8.5-10.5); Carbon Dioxide 25 mmol/L (22-29); Chloride 91 mmol/L (98-107); Creatinine Clr Calc Pharmacy 15.7495; Glomerular Filtration Rate 9.5 mL/min (90-130); Glucose 175 mg/dL (65-115); Osmolality Calculated 302 mOsm/kg (285-295); Sodium 137 mmol/L (136-145)
[2023-06-05 02:34] LABS: Anion Gap 24.7 (5-19); Potassium 3.7 mmol/L (3.5-5.1)
[2023-06-05 06:20] LABS: Glucose Point of Care 308 mg/dL (70-110)
[2023-06-05] MEDS: benzonatate 100 mg Capsule 200 MG PO (08:03)
[2023-06-05] MEDS: ALPRAZolam 0.5 mg Tablet 0.25 MG PO (08:03)
[2023-06-05] MEDS: b-complex-vitamin c Tablet 1 EACH PO (08:03)
[2023-06-05] MEDS: azithromycin 250 mg Tablet 500 MG PO (08:03)
[2023-06-05] MEDS: guaiFENesin 600 mg Tablet 1200 MG PO (08:04)
[2023-06-05] MEDS: sevelamer 800 mg Tablet 1600 MG PO (08:04)
[2023-06-05] MEDS: carvedilol 3.125 mg Tablet PO (08:04)
[2023-06-05] MEDS: citalopram 20 mg Tablet 40 MG PO (08:04)
[2023-06-05] MEDS: predniSONE 20 mg Tablet 40 MG PO (08:04)
[2023-06-05] MEDS: hyDRALAzine 25 mg Tablet PO (08:05)
[2023-06-05] MEDS: insulin lispro 100 unit/1 mL SUBCUT ×2 (08:05→12:04)
[2023-06-05] MEDS: apixaban 5 mg Tablet 2.5 MG PO (08:05)
[2023-06-05] MEDS: sodium bicarbonate 650 mg Tablet PO (08:24)
--- NOTE | 2023-06-05 08:28 | PC.NURSE ---
Gave patient flutter valve and instructed her how to use it as well as how often. Patient demonstrated task and stated understanding.
[2023-06-05] MEDS: sodium chloride 3.5% neb 4 mL Neb INHALATION (08:53)
[2023-06-05] MEDS: budesonide 0.5 mg/2 mL Neb INHALATION (08:54)
[2023-06-05 11:07] LABS: Glucose Point of Care 159 mg/dL (70-110)
--- NOTE | 2023-06-05 14:48 | P.DS_ITS ---
Discharge Providers Date of Admission: 06/03/23 22:30 Date of Discharge: June 05, 2023 Attending Provider at Admission: Dayana Grady MD Attending Provider at Discharge: Lawrence Palacio Primary Care Provider: Herber Hussein MD Diagnoses at Discharge Discharge Diagnosis (1) Tachycardia: Status: Acute (2) Chronic anticoagulation: Status: Acute (3) DVT (deep venous thrombosis): Status: Acute (4) Bronchitis: Status: Acute (5) Hypoxia: Status: Acute (6) Chronic ulcer of great toe of left foot with fat layer exposed: Status: Acute Reason for Visit Reason for Visit: chest pains, sob Hospital Course Hospital Course Pleasant 47-year-old lady with smoking history, ESRD, diabetes, history of DVT was admitted for assessment management after presenting with shortness of breath, nasal congestion, productive cough, coryza, dysphonia, chest pains with breathing and coughing, on presentation with new oxygen requirement of 3 L, not normally on oxygen, no active chest pain on admission, mild elevation of troponin without significant rise, nonspecific ST-T wave abnormality, with finding of abnormal x-ray additionally imaged by CT with finding of predominantly interstitial infiltrates with some mucous plugging seen in the left lung compatible with interstitial pneumonia. Probable bilateral basilar atelectasis, left more prominent than right. Likely component of increased cardiac demand. She received azithromycin, prednisone, budesonide, DuoNebs, oxygen support, with mucous plugging additionally received hypertonic saline nebs, started on guaifenesin, instructed on use of flutter valve. Her condition gradually improved she weaned off oxygen and did not qualify for oxygen on home O2 evaluation. Subjectively she is gradually improving. She will complete a brief course of antibiotic although due to QT prolongation it is changed from azithromycin to Levaquin, short course of prednisone and is also given as needed inhaler due to still and mild wheeze in the left 1. She is encouraged to quit smoking, please assist her with cessation. In case of protracted respiratory symptoms consider referral for additional assessment including PFT. Please reassess QT interval. Consider nonurgent cardiac risk stratification with history of smoking, diabetes, mild troponin elevation. She is to continue follow-up with wound care clinic for chronic left lower extremity wound. Follow-up regarding chronic problems including ESRD with dialysis and nephrology. Physical Exam Const: COMMON NORMALS: patient oriented x3 and alert GENERAL APPEARANCE: cooperative ORIENTATION/CONSCIOUSNESS: Yes awake HENMT: COMMON NORMALS: oropharynx normal Neck/C-Spine: COMMON NORMALS: no JVD Resp: AUSCULTATION: wheezes (Mild L) Cardio: COMMON NORMALS: no JVD, regular rhythm, S1 normal heart sound present, S2 normal heart sound present and No murmurs present (Cardio) RHYTHM: regular rhythm HEART SOUNDS: S1 normal heart sound present and S2 normal heart sound present GI: COMMON NORMALS: Normal to inspection, nondistended, normoactive bowel sounds present, Soft to palpation and non-tender PALPATION: Yes Soft to palpation Extremity: COMMON NORMALS: no joint enlargement and no pedal edema OTHER: LLE compressive dressing, with chronic wound. Neuro: COMMON NORMALS: patient oriented x3 and moves all extremities SENSORIUM/ORIENTATION: Yes alert Skin: COMMON NORMALS: no rashes or lesions noted GENERAL SKIN EXAM: no rashes or lesions noted Discharge Data Studies Completed and Pending Completed Studies During Hospitalization Category Date Time Status CT chest wo con [id number] Stat Cat Scan 06/03/23 22:39 Completed XR chest 1V portable [id number] Stat Exams 06/03/23 17:45 Completed Pending at discharge Category Date Time Status Basic Metabolic Panel AM LABS Lab 06/06/23 04:00 Ordered Basic Metabolic Panel AM LABS Lab 06/07/23 04:00 Ordered Complete Blood Count w/Auto AM LABS Lab 06/06/23 04:00 Ordered Complete Blood Count w/Auto AM LABS Lab 06/07/23 04:00 Ordered Sputum Culture and Gram Stain Stat Lab 06/04/23 11:04 Results Streptococcus Culture Group A Stat Lab 06/03/23 21:10 Results Radiology Impressions Chest X-Ray 06/03/23 17:45 IMPRESSION: Mild increased markings left lung base with today's exam, could reflect small amount basilar atelectasis or infiltrate. No acute findings otherwise. Central venous access catheter or port again noted on the left. Chest CT 06/03/23 22:39 IMPRESSION: 1. Predominantly interstitial infiltrates with some mucous plugging is seen in the left lung compatible with interstitial pneumonia. 2. Probable bilateral basilar atelectasis, left more prominent than right. Laboratory Results WBC 15.72 10^3/uL (3.29-11.43) H 06/05/23 02:00 RBC 3.47 10^6/uL (3.85-5.65) L 06/05/23 02:00 Hgb 12.40 g/dL (11.27-16.99) 06/05/23 02:00 Hct 37.7 % (36-47) 06/05/23 02:00 MCV 108.6 fl (85-98) H 06/05/23 02:00 MCH 35.7 pg (27-33) H 06/05/23 02:00 MCHC 32.9 g/dL (30-55) 06/05/23 02:00 RDW 14.5 % (12.1-15.1) 06/05/23 02:00 Plt Count 248 10^3/cmm (157-399) D 06/05/23 02:00 MPV 9.8 fL (7.4-10.4) 06/05/23 02:00 Neut % (Auto) 85.8 % 06/05/23 02:00 Lymph % (Auto) 9.0 % 06/05/23 02:00 [place] % (Auto) 3.6 % 06/05/23 02:00 Eos % (Auto) 0.1 % 06/05/23 02:00 Baso % (Auto) 0.3 % 06/05/23 02:00 Neut # (Auto) 13.49 10^3/uL (1.8-7.7) H 06/05/23 02:00 Lymph # (Auto) 1.4 10^3/uL (0.8-4.8) 06/05/23 02:00 [place] # (Auto) 0.6 10^3/uL (0.2-0.9) 06/05/23 02:00 Eos # (Auto) 0.0 10^3/uL (0.0-0.8) 06/05/23 02:00 Baso # (Auto) 0.0 10^3/uL (0.0-0.1) 06/05/23 02:00 Nucleated RBC % (auto) 0 % 06/05/23 02:00 Nucleated RBCs # 0.0 /100WBC 06/05/23 02:00 PT 13.90 SECONDS (12.1-14.9) 06/03/23 18:56 INR 1.03 (0.8-1.2) 06/03/23 18:56 D-Dimer 0.99 ug/mLFEU (0-0.59) H 06/03/23 18:56 Specimen Type Arterial 06/03/23 21: Sample Site Brachial, right 06/03/23 21:25 ABG pH 7.54 (7.35-7.45) H 06/03/23 21:25 ABG pCO2 40.5 mmHg (35-45) 06/03/23 21: ABG pO2 51.1 mmHg (80.0-100.0) L 06/03/23 21: ABG PO2/FiO2 Ratio 0 06/03/23: ABG HCO3 34.1 mmol/L (22-26) H 06/03/23: ABG O2 Saturation 89.0 06/03/23 21: ABG Base Excess 10.6 mmol/L (-2.0-2.0) H 06/03/23 21: Benjamin Test Pos 06/03/23 21: A-a O2 Gradient 6.4 mmHg (5-10) 06/03/23 21: Hematocrit 34.0 % (37-47) L 06/03/23 21: Hgb O2 Saturation 87.1 % (95-100) L 06/03/23 21: Carboxyhemoglobin 1.7 %THgb (0.4-20.1) 06/03/23 21: Methemoglobin 0.4 % (0.4-1.5) 06/03/23 21: Total Hemoglobin 11.1 g/dL (12-16) L 06/03/23 21: Sodium 144.0 mmol/L (131-143) H 06/03/23 21:25 Potassium 3.5 mmol/L (3.5-5.0) 06/03/23 21: Glucose 104.0 mg/dL (70-115) 06/03/23 21: Ionized Calcium 1.1 mmol/L (1.1-1.4) 06/03/23 21: O2 Delivery Device None 06/03/23 21:25 FiO2 21.0 % 06/03/23 21:25 Meteorology Faculty Member ID [email or web address] 06/03/23 21:25 Sodium 137 mmol/L (136-145) 06/05/23 02:00 Potassium 3.7 mmol/L (3.5-5.1) 06/05/23 02:00 Chloride 91 mmol/L (98-107) L 06/05/23 02:00 Carbon Dioxide 25 mmol/L (22-29) 06/05/23 02:00 Anion Gap 24.7 (5-19) H 06/05/23 02:00 BUN 50 mg/dL (6-20) H 06/05/23 02:00 Creatinine 4.9 mg/dL (0.5-0.9) H 06/05/23 02:00 GFR Calculation 9.5 mL/min (90-130) L 06/05/23 02:00 Glucose 175 mg/dL (65-115) H 06/05/23 02:00 POC Glucose 159 mg/dL (70-110) H 06/05/23 11:01 Estimat Average Glucose 97 06/03/23 18:56 Hemoglobin A1c 5.0 % (4.0-6.0) 06/03/23 18:56 Calculated Osmolality 302 mOsm/kg (285-295) H 06/05/23 02:00 Calcium 9.9 mg/dL (8.5-10.5) 06/05/23 02:00 Magnesium 1.9 mg/dL (1.7-2.3) 06/04/23 04:26 Total Bilirubin 0.4 mg/dL (0.15-1.2) 06/03/23 18:56 AST 20 U/L (0-32) 06/03/23 18:56 ALT 19 U/L (0-33) 06/03/23 18:56 Alkaline Phosphatase 65 U/L (35-105) 06/03/23 18:56 Troponin T Baseline 49 ng/L (0-10) H 06/03/23 18:56 Troponin T 120 Minute 49.48 ng/L (0-10) H 06/03/23 20:25 Delta Troponin T 0.48 ABS# (0-10) 06/03/23 20:25 NT-Pro-B Natriuret Pep 5804 pg/mL (0-125) H 06/03/23 18:56 Total Protein 7.4 g/dL (6.6-8.7) 06/03/23 18:56 Albumin 4.3 g/dL (3.5-5.2) 06/03/23 18:56 Globulin 3.1 g/dL (1.3-4.6) 06/03/23 18:56 Lipase 41 U/L (13-60) 06/03/23 18:56 Adenovirus (PCR) Not detected (NOT DETECT) 06/04/23 05:21 C. pneumoniae DNA (PCR) Not detected (NOT DETECT) 06/04/23 05:21 Coronavirus 229E (PCR) Not detected (NOT DETECT) 06/04/23 05:21 Human Metapneumovir PCR Not detected (NOT DETECT) 06/04/23 05:21 Influenza A (H1) PCR Not detected (NOT DETECT) 06/04/23 05:21 Influ A (H1/09) PCR Not detected (NOT DETECT) 06/04/23 05:21 Influenza A (H3) PCR Not detected (NOT DETECT) 06/04/23 05:21 Influenza Type A Ag negative (Negative) 06/03/23 21:10 Influenza Type A (PCR) Not detected (NOT DETECT) 06/04/23 05:21 Influenza Type B Ag negative (Negative) 06/03/23 21:10 Influenza Type B (PCR) Not detected (NOT DETECT) 06/04/23 05:21 M. pneumoniae (PCR) Not detected (NOT DETECT) 06/04/23 05:21 Parainfluenza 1 (PCR) Not detected (NOT DETECT) 06/04/23 05:21 Parainfluenza 2 (PCR) Not detected (NOT DETECT) 06/04/23 05:21 Parainfluenza 3 (PCR) Not detected (NOT DETECT) 06/04/23 05:21 Parainfluenza 4 (PCR) Not detected (NOT DETECT) 06/04/23 05:21 RSV Type A (PCR) Not detected (NOT DETECT) 06/04/23 05:21 RSV Type B (PCR) Not detected (NOT DETECT) 06/04/23 05:21 Entero/Rhino (PCR) Not detected (NOT DETECT) 06/04/23 05:21 SARS-CoV-2 (PCR) Not detected (NOT DETECT) 06/04/23 05:21 SARS-CoV-2 Ag (Rapid) negative (Negative) 06/03/23 21:10 Group A Strep Rapid Negative (Negative) 06/03/23 21:10 Vitals Last Vital Signs Temp 97.7 F 06/05/23 11:28 Pulse 96 06/05/23 11:28 Resp 20 H 06/05/23 11:28 BP 144/72 06/05/23 11:28 Pulse Ox 93 06/05/23 14:38 O2 Del Method Room Air 06/05/23 11:28 O2 Flow Rate 2 06/04/23 20:03 Discharge Plan Discharge Patient Disposition: Home Condition: Stable Prescriptions: New prednisone 20 mg Tablet 40 mg PO DAILY Qty: 3 0RF Mucinex 600 mg Tablet Extended Release 12hr 1,200 mg PO BID Qty: 30 0RF albuterol sulfate 90 mcg/actuation HFA aerosol inhaler 2 inh inhalation Q6H PRN (Reason: shortness of breath or wheezing) Qty: 8.5 0RF levofloxacin 750 mg tablet 750 mg PO DAILY 3 Days Qty: 3 0RF Continued alprazolam [Xanax] 0.25 mg tablet 0.25 mg PO BID PRN (Reason: Anxiety) diphenhydramine HCl [Benadryl] 25 mg capsule 25 mg PO TID PRN (Reason: Itching) acetaminophen 325 mg capsule 325 mg PO QID PRN (Reason: Pain) pantoprazole 40 mg tablet,delayed release (DR/EC) 40 mg PO BID (DME) blood-glucose meter [WriggleTouch UltraMini] Kit See Rx Instructions .ROUTE .MEDSUPPLY Qty: 1 Rx Instructions: As directed citalopram 40 mg tablet 40 mg PO DAILY (DME) Diabetic Shoes Qty: 1 0RF Rx Instructions: As directed sodium bicarbonate 650 mg tablet 650 mg PO DAILY PRN (Reason: Dialysis) promethazine 25 mg tablet 25 mg PO QID PRN (Reason: Nausea And Vomiting) Eliquis 2.5 mg Tablet 2.5 mg PO BID Hold Instructions: Resume on 01/11/20. ondansetron HCl 4 mg Tablet 4 mg PO Q8H PRN (Reason: Nausea) hydralazine 25 mg tablet 25 mg PO TID amlodipine 5 mg tablet 5 mg PO DAILY ropinirole 0.25 mg Tablet 0.25 mg PO BEDTIME Januvia 25 mg tablet 25 mg PO DAILY sevelamer carbonate 800 mg tablet 1,600 mg PO TID melatonin 10 mg Capsule 10 mg PO DAILY RenaPlex-D 800 mcg-12.5 mg -2,000 unit Tablet 1 tab PO DAILY carvedilol 25 mg tablet 25 mg PO DAILY citalopram 20 mg tablet 20 mg PO DAILY Ozempic 1 mg/dose (4 mg/3 mL) pen injector 1 mg SUBCUT Q7D Rx Instructions: on tuesday Korsuva 50 mcg/mL Solution 50 mcg IV QMWF moxifloxacin 0.5 % drops 1 drp ophthalmic (eye) QID Rx Instructions: left eye Discharge Orders: Discharge Order (Routine); Ordered 06/05/23 Ordered By: Lawrence Palacio Referrals: Herber Hussein MD [Primary Care Provider] - (We have notified your physician's clinic of the need for a follow-up appointment to be scheduled. If you have not heard from them within the next 2 business days, please call them directly. ) Discharge Diet: As Directed Patient Instructions: Decongestant/Expectorant (By mouth), Prednisone (By mouth), Levofloxacin (By mouth) (Levaquin, Levaquin Leva-gene), How to Stop Smoking (GEN), Cigarette Smoking and Your Health (GEN), Acute Bronchitis (ED), Bacterial Pneumonia (DC) Activity Restrictions/Additional Instructions: Complete antibiotic and steroid course for bronchitis with mucous plugging and possible viral and/or atypical pneumonia. Please stop smoking as you are at risk of development of chronic lung disease including COPD. Follow-up with your primary doctor for reassessment for resolution of bronchitis, in case of lingering symptoms discussed referral for assessment by pulmonary function test. Return to the hospital in case of any worsening or new concerning symptoms. Please stop smoking, further smoking will lead to further worsening of lung function, chronic lung disease, risk of lung cancer in addition to other cancers as well as risk of heart attack and stroke (more so with presence of kidney disease) and other complications. Please work with your primary doctor to help you quit smoking. Continue wound care and follow-up with wound care clinic regarding chronic foot wound. Continue follow-up regarding kidney disease, dialysis, renal diabetic diet. Discharge Attestations Time Spent in Discharge Care*: greater than 30 min Quality Metrics Clinical Quality Measures [ No reported AMI, CVA or VTE this stay] Coding Level of Care Code 77380 Total time (in minutes) for Discharge: 40 Diagnoses Tachycardia R00.0 Chronic anticoagulation Z79.01 DVT (deep venous thrombosis) I82.409 Bronchitis J40 Hypoxia R09.02 Chronic ulcer of great toe of left foot with fat layer exposed L97.522
--- NOTE | 2023-06-05 15:04 | PC.NURSE ---
Discharge Note Patient discharged to home via private vehicle accompanied by sister. Discharge instructions reviewed with patient and/or charter representative. Mobile pharmacy medications and/or prescriptions provided. Belongings/home medications returned.
== END 2023-06-05 16:50 | disposition home or self-care (01) | DRG 202 ==
LOC: ER 21:11 → MEDSURG 22:30
PROVIDERS: Emergency Medicine; Admitting Provider Internal Medicine; Emergency Provider Internal Medicine; PCP Family Medicine; Visit Provider Internal Medicine
DX: J40 Bronchitis, not specified as acute or chronic (principal); N18.6 End stage renal disease; J44.1 Chronic obstructive pulmonary disease with (acute) exacerbation; I50.32 Chronic diastolic (congestive) heart failure; Z72.0 Tobacco use; Z86.718 Personal history of other venous thrombosis and embolism; Z79.01 Long term (current) use of anticoagulants; Z85.048 Personal history of other malignant neoplasm of rectum, rectosigmoid junction, and anus; E11.22 Type 2 diabetes mellitus with diabetic chronic kidney disease; Z99.2 Dependence on renal dialysis; Z79.4 Long term (current) use of insulin; Z79.84 Long term (current) use of oral hypoglycemic drugs; Z79.85 Long-term (current) use of injectable non-insulin antidiabetic drugs; E11.621 Type 2 diabetes mellitus with foot ulcer; L97.522 Non-pressure chronic ulcer of other part of left foot with fat layer exposed
CPT/HCPCS: 36415; 36416; 36600; 71045; 71250; 80048; 80051; 80053; 82330; 82805; 82962; 83036; 83690; 83735; 83880; 84484; 85025; 85378; 85610; 87070; 87081; 87106; 87205; 87426; 87486; 87581; 87633; 87804; 87880; 93005; 94640; 94760; 96372; 96374; 99285; J1815; J1940; J2919; J7512; J7626; Q0144

== ENCOUNTER → 2023-06-06 10:15 | Outpatient (BNVA) | payer MEDICARE, MEDICAID, SELFPAY | PROVIDERS: PCP Family Medicine; Visit Provider Nurse Practitioner Family | DX: E11.52 Type 2 diabetes mellitus with diabetic peripheral angiopathy with gangrene (principal); E11.621 Type 2 diabetes mellitus with foot ulcer; L97.522 Non-pressure chronic ulcer of other part of left foot with fat layer exposed | CPT/HCPCS: 11042; A6197; A6210; A6251 ==

== ENCOUNTER 2023-06-09 15:38 | Outpatient (CLI) | payer MEDICARE, MEDICAID, SELFPAY ==
--- NOTE | 2023-06-09 15:48 | XRR_ITS ---
PROCEDURE INFORMATION: Exam: XR Left Foot Exam date and time: 06/09/2023 3:56 PM Age: 47 years old Clinical indication: Pain; Foot; Left; Additional info: Pain, chronic diabetic wound, ruling out osteomyletis TECHNIQUE: Imaging protocol: Radiologic exam of the left foot. Views: 1 or 2 views. COMPARISON: CR XR foot LT min 3V* [id number] 02/21/2023 12:00 PM FINDINGS: Bones/joints: There is periarticular osteopenia at the metatarsophalangeal joints. There is bone sclerosis in the distal 1st metatarsal. Joint alignment is normal. No acute fracture. No visible bone erosion. Soft tissues: Mild diffuse soft tissue edema in the forefoot. XR/XR foot LT 2V [id number] IMPRESSION: Bone sclerosis in the 1st metatarsal head is similar to 02/21/2023. Degenerative changes versus chronic osteomyelitis. Correlate with location of reported diabetic wound.
== END 2023-06-09 15:39 | disposition home or self-care (01) ==
LOC: RAD 15:39
PROVIDERS: PCP Family Medicine; Visit Provider Thoracic Surgery (Cardiothoracic Vascular Surgery)
DX: L97.522 Non-pressure chronic ulcer of other part of left foot with fat layer exposed (principal); M79.672 Pain in left foot
CPT/HCPCS: 73620; 99213

== ENCOUNTER → 2023-06-22 10:11 | Outpatient (BNVA) | payer MEDICARE, MEDICAID, SELFPAY | PROVIDERS: PCP Family Medicine; Visit Provider Thoracic Surgery (Cardiothoracic Vascular Surgery) | DX: E11.52 Type 2 diabetes mellitus with diabetic peripheral angiopathy with gangrene (principal); E11.621 Type 2 diabetes mellitus with foot ulcer; L97.522 Non-pressure chronic ulcer of other part of left foot with fat layer exposed | CPT/HCPCS: 97597 ==

== ENCOUNTER → 2023-06-27 10:18 | Outpatient (BNVA) | payer MEDICARE, MEDICAID, SELFPAY | PROVIDERS: PCP Family Medicine; Visit Provider Nurse Practitioner Family | DX: E11.52 Type 2 diabetes mellitus with diabetic peripheral angiopathy with gangrene (principal); E11.621 Type 2 diabetes mellitus with foot ulcer; L97.522 Non-pressure chronic ulcer of other part of left foot with fat layer exposed | CPT/HCPCS: 11042 ==

== ENCOUNTER → 2023-07-04 10:01 | Outpatient (BNVA) | payer MEDICARE, MEDICAID, SELFPAY | PROVIDERS: PCP Family Medicine; Visit Provider Nurse Practitioner Family | DX: E11.52 Type 2 diabetes mellitus with diabetic peripheral angiopathy with gangrene (principal); E11.621 Type 2 diabetes mellitus with foot ulcer; L97.526 Non-pressure chronic ulcer of other part of left foot with bone involvement without evidence of necrosis | CPT/HCPCS: 11044; A6219 ==

== ENCOUNTER 2023-07-07 09:14 | Outpatient (CLI) | payer MEDICARE, MEDICAID, SELFPAY ==
--- NOTE | 2023-07-07 09:30 | MR_ITS ---
WS: [id number] MRI LEFT FOOT WITHOUT CONTRAST. COMPARISON: LEFT foot radiographs 06/09/2023 Multiplanar, multisequence imaging is performed without contrast. Patient was having muscle spasms du ring the examination. No IV contrast was given as the patient was unable to remain still after the fi rst few sequences. Abnormal signal involving the proximal to distal fifth metatarsal with extension to include the metat arsal head and the surrounding soft tissues. There is low signal on the T1 sequences and increased si gnal on the T2 sequences. Pathological fracture through the fifth metatarsal head. Soft tissue ulcer along the lateral plantar surface of the distal fifth metatarsal and proximal fifth toe. Diameter of the ulcer tract measures 2.1 cm. The ulcer tract extends to the fifth metatarsal head. Along the dors al surface of the distal fifth metatarsal is a complex cystic mass measuring 2.0 x 1.1 cm which very well may be an abscess. This is a complex collection. Increased on the T2 sequences but low signal on the T1 sequences. There is an additional 0.5 x 0.4 cm cyst near the fourth metatarsal head. There is a small amount of edema in the fourth metatarsal head and also the second metatarsal head. L arge amount of soft tissue edema surrounds the metatarsals. IMPRESSION: 1. Study is compromised by lack of IV contrast and motion due to muscle spasms. 2. Extensive marrow edema throughout the fifth metatarsal with destruction and probable pathological fracture through the fifth metatarsal head. 3. Additional more focal marrow edema in the second metatarsal head and fourth metatarsal head. 4. Marrow signal changes involving the metatarsals are highly suspicious for osteomyelitis. Cannot c onfirm osteomyelitis without IV contrast. 5. Complex cystic collection along the dorsal surface of the fifth distal metatarsal measures 2.0 x 1.1 cm. There is an additional smaller fluid collection near the fourth metatarsal head measuring 0.5 x 0.4 cm. Focal abscesses cannot be excluded. 6. Large soft tissue ulceration along the lateral plantar fifth metatarsal.
== END 2023-07-07 09:15 | disposition home or self-care (01) ==
LOC: RAD 09:15
PROVIDERS: PCP Family Medicine; Visit Provider Thoracic Surgery (Cardiothoracic Vascular Surgery)
DX: E11.621 Type 2 diabetes mellitus with foot ulcer (principal); L97.526 Non-pressure chronic ulcer of other part of left foot with bone involvement without evidence of necrosis
CPT/HCPCS: 11042; 73718; A6197

== ENCOUNTER → 2023-07-11 10:00 | Outpatient (BNVA) | payer MEDICARE, MEDICAID, SELFPAY | PROVIDERS: PCP Family Medicine; Visit Provider Nurse Practitioner Family | DX: E11.621 Type 2 diabetes mellitus with foot ulcer (principal); E11.52 Type 2 diabetes mellitus with diabetic peripheral angiopathy with gangrene; L97.526 Non-pressure chronic ulcer of other part of left foot with bone involvement without evidence of necrosis | CPT/HCPCS: 11044; 87070; 87077; 87176; 87186; 87205; 99212; A6252 ==

== ENCOUNTER → 2023-07-12 09:25 | Outpatient (BNVA) | payer MEDICARE, MEDICAID, SELFPAY | PROVIDERS: PCP Family Medicine; Referring Provider Nurse Practitioner Family; Visit Provider Internal Medicine Cardiovascular Disease | DX: E11.621 Type 2 diabetes mellitus with foot ulcer (principal); L97.509 Non-pressure chronic ulcer of other part of unspecified foot with unspecified severity; I50.9 Heart failure, unspecified | CPT/HCPCS: 36415; 71045; 80048; 84134; 85025; 85651; 93005 ==

== ENCOUNTER → 2023-07-14 08:02 | Outpatient (BNVA) | payer MEDICARE, MEDICAID, SELFPAY | PROVIDERS: PCP Family Medicine; Visit Provider Thoracic Surgery (Cardiothoracic Vascular Surgery) | DX: E11.52 Type 2 diabetes mellitus with diabetic peripheral angiopathy with gangrene (principal); E11.621 Type 2 diabetes mellitus with foot ulcer; L97.522 Non-pressure chronic ulcer of other part of left foot with fat layer exposed; M86.171 Other acute osteomyelitis, right ankle and foot | CPT/HCPCS: G0277 ==

== ENCOUNTER → 2023-07-18 10:08 | Outpatient (BNVA) | payer MEDICARE, MEDICAID, SELFPAY | PROVIDERS: PCP Family Medicine; Visit Provider Nurse Practitioner Family | DX: E11.52 Type 2 diabetes mellitus with diabetic peripheral angiopathy with gangrene (principal); E11.621 Type 2 diabetes mellitus with foot ulcer; L97.522 Non-pressure chronic ulcer of other part of left foot with fat layer exposed; M86.172 Other acute osteomyelitis, left ankle and foot | CPT/HCPCS: 11042; A6252; G0277 ==

== ENCOUNTER → 2023-07-19 08:25 | Outpatient (BNVA) | payer MEDICARE, MEDICAID, SELFPAY | PROVIDERS: PCP Family Medicine; Visit Provider Thoracic Surgery (Cardiothoracic Vascular Surgery) | DX: E11.621 Type 2 diabetes mellitus with foot ulcer (principal); E11.52 Type 2 diabetes mellitus with diabetic peripheral angiopathy with gangrene; L97.522 Non-pressure chronic ulcer of other part of left foot with fat layer exposed; M86.172 Other acute osteomyelitis, left ankle and foot | CPT/HCPCS: G0277 ==

== ENCOUNTER → 2023-07-22 10:32 | Outpatient (BNVA) | payer MEDICARE, MEDICAID, SELFPAY | PROVIDERS: PCP Family Medicine; Visit Provider Thoracic Surgery (Cardiothoracic Vascular Surgery) | DX: E11.52 Type 2 diabetes mellitus with diabetic peripheral angiopathy with gangrene (principal); E11.621 Type 2 diabetes mellitus with foot ulcer; L97.522 Non-pressure chronic ulcer of other part of left foot with fat layer exposed; M86.172 Other acute osteomyelitis, left ankle and foot | CPT/HCPCS: 11042; G0277 ==

== ENCOUNTER → 2023-07-25 10:44 | Outpatient (BNVA) | payer MEDICARE, MEDICAID, SELFPAY | PROVIDERS: PCP Family Medicine; Visit Provider Nurse Practitioner Family | DX: E11.52 Type 2 diabetes mellitus with diabetic peripheral angiopathy with gangrene (principal); E11.621 Type 2 diabetes mellitus with foot ulcer; L97.522 Non-pressure chronic ulcer of other part of left foot with fat layer exposed; M86.172 Other acute osteomyelitis, left ankle and foot | CPT/HCPCS: 11042; G0277 ==

== ENCOUNTER 2023-07-26 13:06 | Outpatient (CLI) | payer MEDICARE, MEDICAID, SELFPAY ==
[2023-07-26 13:17] LABS: Basophils % 0.4 %; Eosinophils # 0.1 10^3/uL (0.0-0.8); Lymphocytes # 1.5 10^3/uL (0.8-4.8); Lymphocytes % 21.5 %; Mean Corpuscular HGB Conc 32.9 g/dL (30-55); Mean Corpuscular Hemoglobin 35.4 pg (27-33); Mean Corpuscular Volume 107.7 fl (85-98); Mean Platelet Volume 9.7 fL (7.4-10.4); Monocytes # 0.7 10^3/uL (0.2-0.9); Monocytes % 9.9 %; Neutrophils # 4.45 10^3/uL (1.8-7.7); Neutrophils % 65.2 %; Nucleated Red Blood Cells % 0 %; Platelet Count 109 10^3/cmm (157-399); Red Blood Count 1.95 10^6/uL (3.85-5.65); Red Cell Distribution Width 16.5 % (12.1-15.1); White Blood Count 6.84 10^3/uL (3.29-11.43)
[2023-07-26 13:42] LABS: Alanine Aminotransferase 13 U/L (0-33); Albumin Level 4.2 g/dL (3.5-5.2); Alkaline Phosphatase 66 U/L (35-105); Anion Gap 16.7 (5-19); Aspartate Amino Transferase 15 U/L (0-32); Blood Urea Nitrogen 37 mg/dL (6-20); Calcium 9.3 mg/dL (8.5-10.5); Carbon Dioxide 32 mmol/L (22-29); Chloride 97 mmol/L (98-107); Globulin 2.2 g/dL (1.3-4.6); Glomerular Filtration Rate 8.8 mL/min (90-130); Glucose 100 mg/dL (65-115); Osmolality Calculated 301 mOsm/kg (285-295); Potassium 4.7 mmol/L (3.5-5.1); Sodium 141 mmol/L (136-145); Total Bilirubin 0.3 mg/dL (0.15-1.2); Total Protein 6.4 g/dL (6.6-8.7)
[2023-07-26 13:55] LABS: Lipase 481 U/L (13-60)
[2023-07-27 13:59] LABS: Amylase 101 U/L (21-101)
== END 2023-07-26 13:07 | disposition home or self-care (01) ==
LOC: LAB 13:09
PROVIDERS: PCP Family Medicine; Visit Provider Nurse Practitioner Family
DX: E11.621 Type 2 diabetes mellitus with foot ulcer (principal); L97.519 Non-pressure chronic ulcer of other part of right foot with unspecified severity; M86.171 Other acute osteomyelitis, right ankle and foot
CPT/HCPCS: 80053; 82150; 83690; 85025; G0277

== ENCOUNTER → 2023-07-27 10:24 | Outpatient (BNVA) | payer MEDICARE, MEDICAID, SELFPAY | PROVIDERS: PCP Family Medicine; Visit Provider Thoracic Surgery (Cardiothoracic Vascular Surgery) | DX: E11.52 Type 2 diabetes mellitus with diabetic peripheral angiopathy with gangrene (principal); E11.621 Type 2 diabetes mellitus with foot ulcer; L97.522 Non-pressure chronic ulcer of other part of left foot with fat layer exposed; M86.172 Other acute osteomyelitis, left ankle and foot | CPT/HCPCS: 99212 ==

== ENCOUNTER → 2023-07-28 09:58 | Outpatient (BNVA) | payer MEDICARE, MEDICAID, SELFPAY | PROVIDERS: PCP Family Medicine; Visit Provider Thoracic Surgery (Cardiothoracic Vascular Surgery) | DX: E11.52 Type 2 diabetes mellitus with diabetic peripheral angiopathy with gangrene (principal); E11.621 Type 2 diabetes mellitus with foot ulcer; L97.522 Non-pressure chronic ulcer of other part of left foot with fat layer exposed; M86.172 Other acute osteomyelitis, left ankle and foot | CPT/HCPCS: G0277 ==

== ENCOUNTER 2023-07-29 17:52 | Inpatient (IN) | payer MEDICARE, MEDICAID, SELFPAY ==
[2023-07-29 17:55] VITALS: BP 108/52; PULSE 104; RESP 16; TEMP 36.6; O2SAT 96; BMI 25.1
[2023-07-29 21:01] LABS: Basophils % 0.6 %; Eosinophils # 0.1 10^3/uL (0.0-0.8); Eosinophils % 1.8 %; Lymphocytes # 1.3 10^3/uL (0.8-4.8); Lymphocytes % 25.5 %; Mean Corpuscular HGB Conc 31.4 g/dL (30-55); Mean Corpuscular Hemoglobin 35.5 pg (27-33); Mean Corpuscular Volume 113.1 fl (85-98); Mean Platelet Volume 9.3 fL (7.4-10.4); Monocytes # 0.4 10^3/uL (0.2-0.9); Monocytes % 7.5 %; Neutrophils # 3.26 10^3/uL (1.8-7.7); Neutrophils % 63.8 %; Nucleated Red Blood Cells % 0 %; Platelet Count 122 10^3/cmm (157-399); Red Blood Count 1.83 10^6/uL (3.85-5.65); Red Cell Distribution Width 17.5 % (12.1-15.1)
[2023-07-29 21:04] LABS: Hematocrit 20.7 % (36-47)
--- NOTE | 2023-07-29 21:43 | ED_ITS ---
HPI - Recheck/Abnormal Lab/Rx 2 General: Chief Complaint: Recheck/Abnormal Lab/Rx Stated Complaint: sob, weak, fatigue Time Seen by Provider: 07/29/23 21:38 Source: patient Mode of arrival: ambulatory Limitations: no limitations History of Present Illness: Patient is a 48-year-old female with an extensive past medical history including DVT on Eliquis, chronic kidney failure on hemodialysis, CAD, diabetes, osteomyelitis of her left foot currently being treated with hyperbaric oxygen chamber treatment through wound care, squamous cell carcinoma anal cancer here stating she was told her hemoglobin was low and needed a blood transfusion. She states her hemoglobin was checked earlier today at dialysis and was 6.9. Patient states she receives dialysis Fridays. Patient states she has felt weak, fatigued, and tired. Patient states she is having normal stools but when asked specifically she does tell me she feels like her stools are dark. She is not having any abdominal pain. MD complaint: abnormal lab Returns today for: called because of abnormal lab/test Context: called for abnormal lab result Associated symptoms: other (fatigue) Review of Systems 2 Const: Reports: fatigue; Denies: fever(s), chills or body aches Card: Reports: lightheadedness (with exertion ); Denies: chest pain, palpitations, edema, syncope or pre-syncope Resp: Denies: dyspnea GI: Reports: melena (does report dark stools); Denies: abdominal pain, nausea, vomiting, hematemesis, diarrhea, change in bowel habits, rectal pain or hematochezia : Denies: flank pain or dysuria Musc: Denies: neck pain, back pain, extremity pain or joint pain Skin/Breast: Reports: other (reported wound to plantar L foot-states it is healing well) Neuro: Denies: headache(s), numbness in extremities, weakness in extremities or sensory changes PFSH ED 2 PFSH: Medical History Tachycardia Diabetes Deep vein thrombosis (DVT) during Chronic anticoagulation Squamous cell carcinoma of anal canal Diabetes mellitus End-stage renal disease Surgical History Status post surgery (05/19/20) Removal of peritoneal dialysis catheter Port-A-Cath in place S/P hemodialysis catheter insertion (01/09/20) Removed 11/18/2020 Peritoneal dialysis status H/O colonoscopy H/O hand surgery History of hip surgery History of hysterectomy Family History Other Cancer Diabetes Denies family history of Anesthesia complication Bleeding disorder Social History Smoking and tobacco/nicotine status: current every day tobacco/nicotine user Alcohol intake: never Substance/Drug Use: never Household members: family Marital status: Single Current occupational status: disabled Physical Exam 2 Const: COMMON NORMALS: no acute distress, average body habitus, no limitations, healthy appearing, alert and well nourished OTHER: appears pale HENMT: COMMON NORMALS: normocephalic and atraumatic HEAD & SCALP: normal to inspection, normocephalic and atraumatic Resp: COMMON NORMALS: normal respiratory effort and clear to auscultation bilaterally AUSCULTATION: clear to auscultation bilaterally Cardio: COMMON NORMALS: regular rhythm RATE: tachycardic RHYTHM: regular rhythm GI: COMMON NORMALS: Normal to inspection, nondistended, normoactive bowel sounds present, Soft to palpation, non-tender, No hepatosplenomegaly present and no masses PALPATION: Yes Soft to palpation and Yes No hepatosplenomegaly present RECTAL EXAM: heme positive stool and External hemorrhoid(s) present (small; non-thrombosed) Extremity: NARRATIVE EXTREMITY EXAM: small wound L lateral plantar foot that is clean/well dressed R anterior thigh dialysis fistula GENERAL: Yes normal exam except as noted Neuro: SENSORIUM/ORIENTATION: Yes alert Course 2 Consultations: Consultation #1: Dr. Garcia-recommends consult with gen surg for plan for colonoscopy; will admit Consultation #2: Dr. Cárdenas-recommends holding Eliquis; states the soonest he could scope her would be Tuesday as it requires 48 hours of withholding anti-coagulation; he will consult on patient Vital Signs: Vital signs: Vital Signs Temperature 97.9 F 07/29/23 17:55 Pulse Rate 104 H 07/29/23 17:55 Respiratory Rate 16 07/29/23 21:58 Blood Pressure 108/52 07/29/23 17:55 Pulse Oximetry 96 07/29/23 17:55 Oxygen Delivery Me thod Room Air 07/29/23 21:58 MDM - Recheck/Abnormal Lab/Rx Medical Decision Making Patient is a 48-year-old female with an extensive past medical history here after she was told she had a low hemoglobin. It was reportedly 6.9 at dialysis earlier today. It is 6.5 here today. She reports normal stools however when asked specifically, she does tell me she has noticed her stools being dark. She is not having any abdominal pain. She clinically appears pale and is mildly tachycardic. She does report fatigue. She is on Eliquis from a DVT years ago . She does have a positive Hemoccult. Have spoken to hospitalist with plan for admission as well as general surgery with plan for colonoscopy. Medical Records I reviewed the patient's medical records. Lab Data I reviewed the patient's lab results. 07/29/23 20:45 07/29/23 20:45 Laboratory Results WBC 5.10 10^3/uL (3.29-11.43) 07/29/23 20:45 RBC 1.83 10^6/uL (3.85-5.65) L 07/29/23 20:45 Hgb 6.50 g/dL (11.27-16.99) L* 07/29/23 20:45 Hct 20.7 % (36-47) L* 07/29/23 20:45 MCV 113.1 fl (85-98) H 07/29/23 20:45 MCH 35.5 pg (27-33) H 07/29/23 20:45 MCHC 31.4 g/dL (30-55) 07/29/23 20:45 RDW 17.5 % (12.1-15.1) H 07/29/23 20:45 Plt Count 122 10^3/cmm (157-399) L 07/29/23 20:45 MPV 9.3 fL (7.4-10.4) 07/29/23 20:45 Neut % (Auto) 63.8 % 07/29/23 20:45 Lymph % (Auto) 25.5 % 07/29/23 20:45 Miner % (Auto) 7.5 % 07/29/23 20:45 Eos % (Auto) 1.8 % 07/29/23 20:45 Baso % (Auto) 0.6 % 07/29/23 20:45 Neut # (Auto) 3.26 10^3/uL (1.8-7.7) 07/29/23 20:45 Lymph # (Auto) 1.3 10^3/uL (0.8-4.8) 07/29/23 20:45 Miner # (Auto) 0.4 10^3/uL (0.2-0.9) 07/29/23 20:45 Eos # (Auto) 0.1 10^3/uL (0.0-0.8) 07/29/23 20:45 Baso # (Auto) 0.0 10^3/uL (0.0-0.1) 07/29/23 20:45 Nucleated RBC % (auto) 0 % 07/29/23 20:45 Nucleated RBCs # 0.0 /100WBC 07/29/23 20:45 PT 15.90 SECONDS (12.1-14.9) H 07/29/23 20:45 INR 1.23 (0.8-1.2) H 07/29/23 20:45 APTT 35.8 SECONDS (23.9-36.7) 07/29/23 20:45 Sodium 141 mmol/L (136-145) 07/29/23 20:45 Potassium 3.5 mmol/L (3.5-5.1) 07/29/23 20:45 Chloride 96 mmol/L (98-107) L 07/29/23 20:45 Carbon Dioxide 34 mmol/L (22-29) H 07/29/23 20:45 Anion Gap 14.5 (5-19) 07/29/23 20:45 BUN 25 mg/dL (6-20) H 07/29/23 20:45 Creatinine 3.8 mg/dL (0.5-0.9) H 07/29/23 20:45 GFR Calculation 12.6 mL/min (90-130) L 07/29/23 20:45 Glucose 144 mg/dL (65-115) H 07/29/23 20:45 Calculated Osmolality 299 mOsm/kg (285-295) H 07/29/23 20:45 Calcium 9.2 mg/dL (8.5-10.5) 07/29/23 20:45 Total Bilirubin 0.3 mg/dL (0.15-1.2) 07/29/23 20:45 AST 18 U/L (0-32) 07/29/23 20:45 ALT 22 U/L (0-33) 07/29/23 20:45 Alkaline Phosphatase 62 U/L (35-105) 07/29/23 20:45 Total Protein 6.7 g/dL (6.6-8.7) 07/29/23 20:45 Albumin 4.1 g/dL (3.5-5.2) 07/29/23 20:45 Globulin 2.6 g/dL (1.3-4.6) 07/29/23 20:45 Blood Type A Positive 07/29/23 20:45 Rho(D) Type Rh positive 07/29/23 20:45 Antibody Screen Negative 07/29/23 20:45 Crossmatch See Detail 07/29/23 20:45 XR interpretation done by ED provider, pending radiology final review Discharge Plan Discharge Patient Disposition: Admitted As Inpatient Admit Provider: Chiki Garcia Clinical Impression: Chronic kidney disease with end stage renal failure on dialysis, GI bleed, Anemia Condition: Stable Coding Level of Care Code 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
[2023-07-29 21:51] LABS: INR 1.23 (0.8-1.2)
[2023-07-29 21:52] LABS: Partial Thromboplastin Time 35.8 SECONDS (23.9-36.7)
[2023-07-29 21:58] VITALS: RESP 16
[2023-07-29 22:01] LABS: Alanine Aminotransferase 22 U/L (0-33); Albumin Level 4.1 g/dL (3.5-5.2); Alkaline Phosphatase 62 U/L (35-105); Anion Gap 14.5 (5-19); Aspartate Amino Transferase 18 U/L (0-32); Blood Urea Nitrogen 25 mg/dL (6-20); Calcium 9.2 mg/dL (8.5-10.5); Carbon Dioxide 34 mmol/L (22-29); Chloride 96 mmol/L (98-107); Creatinine Clr Calc Pharmacy 19.9494; Globulin 2.6 g/dL (1.3-4.6); Glomerular Filtration Rate 12.6 mL/min (90-130); Glucose 144 mg/dL (65-115); Osmolality Calculated 299 mOsm/kg (285-295); Potassium 3.5 mmol/L (3.5-5.1); Sodium 141 mmol/L (136-145); Total Bilirubin 0.3 mg/dL (0.15-1.2); Total Protein 6.7 g/dL (6.6-8.7)
--- NOTE | 2023-07-29 22:19 | XRR_ITS ---
PROCEDURE INFORMATION: Exam: XR Chest Exam date and time: 07/29/2023 10:25 PM Age: 48 years old Clinical indication: Shortness of breath; Prior surgery; Surgery date: 6+ months; Surgery type: Lt port placement; Patient HX: SOB; Fatigue; Weakness; Low hemoglobin TECHNIQUE: Imaging protocol: Radiologic exam of the chest. Views: 1 view. COMPARISON: CR XR chest 1V [id number] 07/12/2023 11:03 AM FINDINGS: Tubes, catheters and devices: Left-sided Port-A-Cath. Lungs: Unremarkable. No consolidation. Pleural spaces: Unremarkable. No pleural effusion. No pneumothorax. Heart/Mediastinum: Unremarkable. No cardiomegaly. Bones/joints: Unremarkable. XR/XR chest 1V portable [id number] IMPRESSION: Negative for infiltrate
[2023-07-29 23:06] VITALS: BP 154/98; PULSE 95; O2SAT 97
[2023-07-29 23:31] VITALS: BMI 25.1
[2023-07-29 23:34] VITALS: PULSE 90
--- NOTE | 2023-07-29 23:37 | P.HP_ITS ---
Providers/Chief Complaint 2 Admitting Physician: Chiki Garcia MD Primary Care Provider: Herber Hussein MD Chief Complaint: sob, weak, fatigue History of Present Illness Bharati Anthony is a 48 year old female with a past medical history of type 2 diabetes mellitus, not on insulin, history of DVT chronically on Eliquis, history of right subclavian steal syndrome, history of left foot diabetic foot infection on Zyvox and HBO therapy, history of end-stage renal disease on dialysis, history of complications of cataract surgery in left eye, who presents [facility] from dialysis center due to abnormal labs. Patient tells me that she had a history of anemia a few years ago, she was admitted in [place] for almost a month, she thinks she had some scoping but she does not remember, but she received transfusion almost on a daily basis during that hospitalization. 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 Denies any lightheadedness, dizziness, nausea, vomiting Review of Systems 2 Const: Denies: fever(s), chills, fatigue or malaise Card: Denies: chest pain Resp: Denies: dyspnea GI: Denies: abdominal pain Medications/Allergies Home Medications Medication Instructions Recorded Confirmed Last Taken Type Diabetic Shoes #1 ea 06/19/19 06/04/23 Unknown Rx acetaminophen 325 mg capsule 325 mg PO QID PRN Pain 06/19/19 06/04/23 05/17/20 History blood-glucose meter (OneTouch #1 ea 06/19/19 06/04/23 Unknown History UltraMini kit) citalopram 40 mg tablet 40 mg PO DAILY 06/19/19 06/04/23 01/20/23 History pantoprazole 40 mg tablet,delayed 40 mg PO BID 06/19/19 06/04/23 01/20/23 History release sodium bicarbonate 650 mg tablet 650 mg PO DAILY PRN Dialysis 09/18/19 06/04/23 01/20/23 History apixaban 2.5 mg tablet (Eliquis) 2.5 mg PO BID 12/11/19 06/04/23 01/20/23 History alprazolam 0.25 mg tablet (Xanax) 0.25 mg PO BID PRN Anxiety 04/01/20 06/04/23 01/20/23 History diphenhydramine HCl 25 mg capsule 25 mg PO TID PRN Itching 04/01/20 06/04/23 05/17/20 History (Benadryl) amlodipine 5 mg tablet 5 mg PO DAILY 01/21/23 06/04/23 01/20/23 History hydralazine 25 mg tablet 25 mg PO TID 01/21/23 06/04/23 01/20/23 History melatonin 10 mg capsule 10 mg PO DAILY 01/21/23 06/04/23 Unknown History ondansetron HCl 4 mg tablet 4 mg PO Q8H PRN Nausea 01/21/23 06/04/23 Unknown History ropinirole 0.25 mg tablet 0.25 mg PO BEDTIME 01/21/23 06/04/23 01/20/23 History sevelamer carbonate 800 mg tablet 1,600 mg PO TID 01/21/23 06/04/23 01/20/23 History sitagliptin phosphate 25 mg tablet 25 mg PO DAILY 01/21/23 06/04/23 01/20/23 History (Víctoruvia) vit B,C-folic ac 800 mcg-zinc 12.5 1 tab PO DAILY 01/21/23 06/04/23 01/20/23 History mg-selen-D3 2,000 unit-vit E tablet (RenaPlex-D) promethazine 25 mg tablet 25 mg PO QID PRN Nausea And 05/02/23 06/04/23 Unknown History Vomiting carvedilol 25 mg tablet 25 mg PO DAILY 06/04/23 06/04/23 Unknown History citalopram 20 mg tablet 20 mg PO DAILY 06/04/23 06/04/23 Unknown History difelikefalin 50 mcg/mL 50 mcg IV QMWF 06/04/23 06/04/23 Unknown History intravenous solution (Korsuva) moxifloxacin 0.5 % eye drops 1 drp ophthalmic (eye) QID 06/04/23 06/04/23 Unknown History semaglutide 1 mg/dose (4 mg/3 mL) 1 mg SUBCUT Q7D 06/04/23 06/04/23 Unknown History subcutaneous pen injector (Ozempic) albuterol sulfate 90 mcg/actuation 2 inh inhalation Q6H PRN shortness 06/05/23 Unknown Rx aerosol inhaler of breath or wheezing #8.5 grams guaifenesin 600 mg tablet, 1,200 mg (2 x 600 mg) PO BID #30 06/05/23 Unknown Rx extended release 12 hr (Mucinex) tabs prednisone 20 mg tablet 40 mg (2 x 20 mg) PO DAILY #3 tabs 06/05/23 Unknown Rx linezolid 600 mg tablet 600 mg PO BID #28 tabs 07/18/23 07/18/23 Unknown Rx Allergies Allergy/AdvReac Type Severity Reaction Status Date / Time adhesive tape Allergy Unknown blisters Verified 06/03/23 18:01 Cephalosporins Allergy Unknown unknown Verified 06/03/23 18:01 doxycycline Allergy ADR-Vomitin Verified 06/03/23 18:01 g latex Allergy blisters Verified 06/03/23 18:01 PFSH Acute 2 PFSH: Medical History Tachycardia Diabetes Deep vein thrombosis (DVT) during Chronic anticoagulation Squamous cell carcinoma of anal canal Diabetes mellitus End-stage renal disease Surgical History Status post surgery (05/19/20) Removal of peritoneal dialysis catheter Port-A-Cath in place S/P hemodialysis catheter insertion (01/09/20) Removed 11/18/2020 Peritoneal dialysis status H/O colonoscopy H/O hand surgery History of hip surgery History of hysterectomy Family History Other Cancer Diabetes Denies family history of Anesthesia complication Bleeding disorder Social History Smoking and tobacco/nicotine status: current every day tobacco/nicotine user Alcohol intake: never Substance/Drug Use: never Household members: family Marital status: Single Current occupational status: disabled Vitals/I&O/Wt Last Vital Signs Temp 97.9 F 07/29/23 17:55 Pulse 95 07/29/23 23:06 Resp 16 07/29/23 21:58 BP 154/98 07/29/23 23:06 Pulse Ox 97 07/29/23 23:06 O2 Del Method Room Air 07/29/23 23:06 Weight last 48 hrs Weight 77.111 kg Physical Exam 2 Const: COMMON NORMALS: no acute distress and patient oriented x3 HENMT: COMMON NORMALS: normocephalic HEAD & SCALP: normocephalic Eye: COMMON NORMALS: Equal, round and reactive pupils present Neck/C-Spine: COMMON NORMALS: no JVD Lymph: LYMPHATIC: no lymphadenopathy noted Resp: COMMON NORMALS: normal respiratory effort, No retractions, No use of accessory muscles and clear to auscultation bilaterally AUSCULTATION: clear to auscultation bilaterally Cardio: COMMON NORMALS: regular rate, regular rhythm, S1 normal heart sound present and S2 normal heart sound present RATE: regular rate RHYTHM: r egular rhythm HEART SOUNDS: S1 normal heart sound present and S2 normal heart sound present GI: COMMON NORMALS: Normal to inspection, nondistended, normoactive bowel sounds present, Soft to palpation and non-tender Extremity: COMMON NORMALS: no calf tenderness and no pedal edema NARRATIVE EXTREMITY EXAM: Left foot wrapped chronic wound Right leg thigh, dialysis access site Neuro: COMMON NORMALS: patient oriented x3, CN's II-XII intact bilaterally and moves all extremities Psych: COMMON NORMALS: mental status grossly normal Data 07/29/23 20:45 07/29/23 20:45 A&P Assessment and plan (1) Acute anemia: (2) Chronic anticoagulation: (3) DVT (deep venous thrombosis): (4) GI bleed: Qualifiers: GI bleed type/associated pathology: unspecified gastrointestinal hemorrhage type Qualified Code(s): K92.2 - Gastrointestinal hemorrhage, unspecified (5) Chronic kidney disease with end stage renal failure on dialysis: (6) Squamous cell carcinoma of anal canal: Plan Acute anemia ? With concerns for slow GI bleed ? History of chronic anticoagulation due to DVT, ? History of anal cancer, status post chemoradiation ? He is on Zyvox chronically for left foot diabetic infection for which she is receiving HBO therapy, will hold Zyvox for now as it can be associated with anemia ? Plan ? Receiving 1 unit PRBC ? Monitor hemoglobin thereafter ? Protonix ? Carafate ? Clear liquids ? Hold all anticoagulant therapy ? General surgery consulted for EGD colonoscopy ? End-stage renal disease receives dialysis Tuesday received dialysis today, ? Ferritin, iron, TIBC, B12, folate ? Hypertension continue home medications ? Type 2 diabetes mellitus, low-dose sliding scale ? Full code ? SCDs for DVT prophylaxis, Lovenox relatively contraindicated given anemia, GI bleed Attestations 2 Medical Necessity Statement*: Patient requires hospitalization for acute anemia, GI bleed, inpatient, greater than 2 midnights Diagnoses Acute anemia D64.9 Chronic anticoagulation Z79.01 DVT (deep venous thrombosis) I82.409 GI bleed K92.2 GI bleed type/associated pathology: unspecified gastrointestinal hemorrhage type Chronic kidney disease with end stage renal failure on dialysis N18.6; Z99.2 Squamous cell carcinoma of anal canal C21.1
[2023-07-29 23:54] LABS: Lactic Sepsis W/Reflex 2.2 mmol/L (0.5-2.2)
[2023-07-29 23:55] VITALS: O2SAT 95
[2023-07-30] VITALS (16 sets, daily range): BP systolic 126–185; BP diastolic 70–85; PULSE 86–103; RESP 16–20; TEMP 36.4–36.8; O2SAT 90–98
[2023-07-30 00:05] LABS: Thyroid Stimulating Hormone 2.26 uIU/mL (0.27-4.20)
[2023-07-30] MEDS: ropinirole 0.25 mg Tablet PO ×2 (00:27→20:00)
[2023-07-30 00:47] LABS: Estmated Average Glucose 97
[2023-07-30] MEDS: sodium chloride 0.9% 100 mL Bag 50 ML IV (00:47)
[2023-07-30 01:28] LABS: Reflex Lactate Order REFLEX LACTIC ORDERD
[2023-07-30 02:11] LABS: Ferritin 902 ng/mL (15-150); Iron 153 ug/dL (37-145); Percent Saturation 83.1 % (20-50); Total Iron Binding Capacity 184 mcg/dl; Unsaturated Iron Binding 31 ug/dL (112-347); Vitamin B12 586 pg/mL (232-1245)
[2023-07-30] MEDS: sodium chloride 0.9% 1,000 ML 50 ML IV (03:03)
[2023-07-30 03:31] LABS: Anion Gap 12.6 (5-19); Blood Urea Nitrogen 28 mg/dL (6-20); Calcium 9.1 mg/dL (8.5-10.5); Carbon Dioxide 33 mmol/L (22-29); Chloride 97 mmol/L (98-107); Creatinine Clr Calc Pharmacy 18.9519; Glomerular Filtration Rate 11.9 mL/min (90-130); Glucose 92 mg/dL (65-115); Lactic Acid level (Lactate) 0.9 mmol/L (0.5-2.2); Osmolality Calculated 293 mOsm/kg (285-295); Potassium 3.6 mmol/L (3.5-5.1); Sodium 139 mmol/L (136-145)
--- NOTE | 2023-07-30 04:40 | PC.NURSE ---
Patient received one unit of RBCs at the rate of 50 ml/hour. After 15 minutes, rate was increased to 100 ml/hr. Transfusion ended at 0345.
[2023-07-30 05:04] LABS: Folate Level > 20.0 ng/mL (4.8-37.3)
[2023-07-30] MEDS: pantoprazole 40 mg SDV IVP ×2 (05:28→18:22)
[2023-07-30] MEDS: sucralfate 1 gm/10 mL Oral Liq UDC PO ×4 (06:04→20:00)
[2023-07-30 06:32] LABS: Glucose Point of Care 103 mg/dL (70-110)
[2023-07-30] MEDS: b-complex-vitamin c Tablet 1 EACH PO (08:33)
[2023-07-30] MEDS: citalopram 20 mg Tablet PO (08:33)
[2023-07-30] MEDS: sevelamer 800 mg Tablet 1600 MG PO ×3 (08:33→18:22)
[2023-07-30] MEDS: hyDRALAzine 25 mg Tablet PO ×3 (08:33→20:00)
[2023-07-30] MEDS: amlodipine 5 mg Tablet PO (08:33)
[2023-07-30] MEDS: carvedilol 25 mg Tablet PO (08:33)
--- NOTE | 2023-07-30 11:07 | P.CONIM_ITS ---
Providers/Reason For Consult 2 Consulting Physician/Specialty*: General surgery Reason for Consult*: Possible GI bleeding Attending Physician: Lawrence Palacio Primary Care Provider: Herber Hussein MD History of Present Illness History of Present Illness Bharati Anthony is a 48 year old female with multiple medical comorbidities and who is seen dialysis for end-stage renal disease. She is also on chronic anticoagulation due to left lower extremity DVT that she suffered in 2018. She presented to the hospital after laboratory workup in the dialysis center showed a hemoglobin of 6.5. Per patient report she has had this in the past and was worked up without significant findings. Currently stable on my evaluation, does not complain of any significant symptoms, she states that from time to time she has seen some blood in the stool that is bright red in nature. She does have a history of anal cancer that was treated with chemoradiation. In addition no nausea vomit or any upper GI symptoms. Review of Systems 2 General: Reports: 10 or more systems reviewed and unremarkable except in HPI and below Medications/Allergies Home Medications Medication Instructions Recorded Confirmed Last Taken Type Diabetic Shoes #1 ea 06/19/19 07/30/23 Unknown Rx acetaminophen 325 mg capsule 325 mg PO QID PRN Pain 06/19/19 07/30/23 05/17/20 History blood-glucose meter (OneTouch #1 ea 06/19/19 07/30/23 Unknown History UltraMini kit) citalopram 40 mg tablet 40 mg PO DAILY 06/19/19 07/30/23 01/20/23 History pantoprazole 40 mg tablet,delayed 40 mg PO BID 06/19/19 07/30/23 01/20/23 History release sodium bicarbonate 650 mg tablet 650 mg PO DAILY PRN Dialysis 09/18/19 07/30/23 01/20/23 History apixaban 2.5 mg tablet (Eliquis) 2.5 mg PO BID 12/11/19 07/30/23 01/20/23 History alprazolam 0.25 mg tablet (Xanax) 0.25 mg PO BID PRN Anxiety 04/01/20 07/30/23 01/20/23 History diphenhydramine HCl 25 mg capsule 25 mg PO TID PRN Itching 04/01/20 07/30/23 05/17/20 History (Benadryl) amlodipine 5 mg tablet 5 mg PO DAILY 01/21/23 07/30/23 01/20/23 History hydralazine 25 mg tablet 25 mg PO TID 01/21/23 07/30/23 01/20/23 History melatonin 10 mg capsule 10 mg PO DAILY 01/21/23 07/30/23 Unknown History ondansetron HCl 4 mg tablet 4 mg PO Q8H PRN Nausea 01/21/23 07/30/23 Unknown History ropinirole 0.25 mg tablet 0.25 mg PO BEDTIME 01/21/23 07/30/23 01/20/23 History sevelamer carbonate 800 mg tablet 1,600 mg PO TID 01/21/23 07/30/23 01/20/23 History sitagliptin phosphate 25 mg tablet 25 mg PO DAILY 01/21/23 07/30/23 01/20/23 History (Dirk) vit B,C-folic ac 800 mcg-zinc 12.5 1 tab PO DAILY 01/21/23 07/30/23 01/20/23 History mg-selen-D3 2,000 unit-vit E tablet (RenaPlex-D) promethazine 25 mg tablet 25 mg PO QID PRN Nausea And 05/02/23 07/30/23 Unknown History Vomiting carvedilol 25 mg tablet 25 mg PO DAILY 06/04/23 07/30/23 Unknown History citalopram 20 mg tablet 20 mg PO DAILY 06/04/23 07/30/23 Unknown History difelikefalin 50 mcg/mL 50 mcg IV QMWF 06/04/23 07/30/23 Unknown History intravenous solution (Korsuva) moxifloxacin 0.5 % eye drops 1 drp ophthalmic (eye) QID 06/04/23 07/30/23 Unknown History semaglutide 1 mg/dose (4 mg/3 mL) 1 mg SUBCUT Q7D 06/04/23 07/30/23 Unknown History subcutaneous pen injector (Ozempic) albuterol sulfate 90 mcg/actuation 2 inh inhalation Q6H PRN shortness 06/05/23 07/30/23 Unknown Rx aerosol inhaler of breath or wheezing #8.5 grams guaifenesin 600 mg tablet, 1,200 mg (2 x 600 mg) PO BID #30 06/05/23 07/30/23 Unknown Rx extended release 12 hr (Mucinex) tabs prednisone 20 mg tablet 40 mg (2 x 20 mg) PO DAILY #3 tabs 06/05/23 07/30/23 Unknown Rx linezolid 600 mg tablet 600 mg PO BID #28 tabs 07/18/23 07/30/23 Unknown Rx prednisolone acetate 1 % eye 1 drp ophthalmic (eye) QID 07/30/23 07/30/23 Unknown History drops,suspension tramadol 50 mg tablet 50 - 100 mg PO Q6H PRN Pain 07/30/23 07/30/23 Unknown History Allergies Allergy/AdvReac Type Severity Reaction Status Date / Time adhesive tape Allergy Unknown blisters Verified 07/30/23 08:21 Cephalosporins Allergy Unknown unknown Verified 07/30/23 08:21 doxycycline Allergy ADR-Vomitin Verified 07/30/23 08:21 g latex Allergy blisters Verified 07/30/23 08:21 Current Medications Generic Name Dose Route Start Last Admin Trade Name Freq PRN Reason Stop Dose Admin Amlodipine Besylate 5 mg 07/30/23 09:00 07/30/23 08:33 Amlodipine 5 Mg Tablet PO 5 mg DAILY BRETT Administration Carvedilol 25 mg 07/30/23 09:00 07/30/23 08:33 Carvedilol 25 Mg Tablet PO 25 mg DAILY BRETT Administration Citalopram Hydrobromide 20 mg 07/30/23 09:00 07/30/23 08:33 Citalopram 20 Mg Tablet PO 20 mg DAILY BRETT Administration Hydralazine HCl 25 mg 07/30/23 09:00 07/30/23 08:33 Hydralazine 25 Mg Tablet PO 25 mg TID BRETT Administration Sodium Chloride 1,000 mls @ 50 mls/hr 07/29/23 23:45 07/30/23 03:03 Sodium Chloride 0.9% IV 50 mls/hr .Q20H BRETT Administration Insulin Human Lispro 0 unit 07/30/23 08:00 07/30/23 08:23 Insulin Lispro 100 Unit/1 Ml SUBCUT Not Given TIDWM [facility] Protocol Multivitamins 1 each 07/30/23 09:00 07/30/23 08:33 K-Wnoavve-Iwdaleh C Tablet PO 1 each DAILY BRETT Administration Pantoprazole Sodium 40 mg 07/30/23 06:00 07/30/23 05:28 Pantoprazole 40 Mg Sdv IVP 40 mg BID@0600,1800 BRETT Administration Sevelamer Carbonate 1,600 mg 07/30/23 08:00 07/30/23 08:33 Sevelamer 800 Mg Tablet PO 1,600 mg TIDWM BRETT Administration Sodium Chloride 50 ml 07/29/23 21:55 07/30/23 00:47 Sodium Chloride 0.9% 100 Ml Bag IV 07/30/23 21:55 50 ml PRN PRN Administration Blood transfusion prime and flush Sucralfate 1 gm 07/30/23 07:00 07/30/23 06:04 Sucralfate 1 Gm/10 Ml Oral Liq Udc PO 1 gm AC&BEDTIME BRETT Administration PFSH Acute 2 PFSH: Medical History Tachycardia Diabetes Deep vein thrombosis (DVT) during Chronic anticoagulation Squamous cell carcinoma of anal canal Diabetes mellitus End-stage renal disease Surgical History Status post surgery (05/19/20) Removal of peritoneal dialysis catheter Port-A-Cath in place S/P hemodialysis catheter insertion (01/09/20) Removed 11/18/2020 Peritoneal dialysis status H/O colonoscopy H/O hand surgery History of hip surgery History of hysterectomy Family History Other Cancer Diabetes Denies family history of Anesthesia complication Bleeding disorder Social History Smoking and tobacco/nicotine status: current every day tobacco/nicotine user Alcohol intake: never Substance/Drug Use: never Household members: family Marital status: Single Current occupational status: disabled Vitals/I&O/Wt Last Vital Signs Temp 97.5 F L 07/30/23 07:27 Pulse 86 07/30/23 09:33 Resp 18 07/30/23 09:33 BP 185/80 07/30/23 07:27 Pulse Ox 96 07/30/23 09:33 O2 Del Method Room Air 07/30/23 09:33 07/29/23 07/30/23 07/30/23 22:59 06:59 14:59 Intake Total 250 / 250 610 / 610 Output Total 0 / 0 Balance 250 / 250 610 / 610 Weight last 48 hrs Weight 184 lb 2 oz Weight 170 lb Weight 170 lb Physical Exam 2 Narrative: General : Patient is well developed , no acute distress, oriented x3 Head : Normal cephalic, a-traumatic. Nose : Mucous membranes are without erythema. Lungs : Equal chest rise bilaterally, no use of accessory muscles, trachea is midline. CV : Rate and rhythm are normal. Abdomen : Soft, ND, NT, no g/r/m Extremities : AV fistula on the right lower extremity. Back : non-tender to palpation, no CVA tenderness. Data 07/29/23 20:45 07/30/23 02:49 A&P Assessment and plan (1) Squamous cell carcinoma of anal canal: (2) Chronic anticoagulation: (3) GI bleed: Qualifiers: GI bleed type/associated pathology: unspecified gastrointestinal hemorrhage type Qualified Code(s): K92.2 - Gastrointestinal hemorrhage, unspecified (4) Congestive heart failure: (5) Chronic kidney disease with end stage renal failure on dialysis: Plan After a complete history, physical examination and review of all available clinical data. The following is my assessment. I think it would be appropriate to proceed with upper and lower endoscopy for evaluation of possible GI bleeding as source of anemia in this patient. Patient will need to be at least 48 hours of anticoagulation for me to be able to proceed with upper and lower endoscopy. Therefore the plan is to do it on Tuesday. Taking this into consideration patient should receive dialysis either on Tuesday or Tuesday evening after colonoscopy as I would not be able to proceed with colonoscopy if dialysis is done less than 12 hours before the time of the procedure. This is due to significant hemodynamic changes that can make anesthesia and the procedure itself more risky. I have offer diagnostic upper and lower endoscopy.. I have discussed all the risks and benefits of the endoscopy. Including, the risk of perforation of the esophagus, stomach, duodenum or colon requiring surgical intervention and ostomy creation, rectal bleeding, incomplete colonoscopy in one of every 20 patients requiring repat endoscopy in 1 year, missed polyps, need for additional procedures. Patient shows understanding and wishes to proceed. Will plan to proceed with endoscopy on Tuesday, 20 explained by or day procedure most likely will be scheduled for early afternoon, pending GI lab availability. - will proceed with bowel prep tomorrow for colonoscopy on Tuesday -Consider dialysis either on Tuesday or otherwise will need to be after colonoscopy on Tuesday -Please continue holding Eliquis -Agree with PPI -All other management per primary team. Coding Level of Care Code 22159 Diagnoses Squamous cell carcinoma of anal canal C21.1 Chronic anticoagulation Z79.01 GI bleed K92.2 GI bleed type/associated pathology: unspecified gastrointestinal hemorrhage type Congestive heart failure I50.9 Chronic kidney disease with end stage renal failure on dialysis N18.6; Z99.2
[2023-07-30 11:11] LABS: Glucose Point of Care 132 mg/dL (70-110)
[2023-07-30 11:54] LABS: Basophils % 0.6 %; Eosinophils # 0.1 10^3/uL (0.0-0.8); Eosinophils % 2.2 %; Hematocrit 27.4 % (36-47); Lymphocytes % 19.2 %; Mean Corpuscular HGB Conc 32.1 g/dL (30-55); Mean Corpuscular Hemoglobin 33.5 pg (27-33); Mean Corpuscular Volume 104.2 fl (85-98); Mean Platelet Volume 8.9 fL (7.4-10.4); Monocytes # 0.4 10^3/uL (0.2-0.9); Neutrophils # 3.45 10^3/uL (1.8-7.7); Nucleated Red Blood Cells % 0 %; Platelet Count 123 10^3/cmm (157-399); Red Blood Count 2.63 10^6/uL (3.85-5.65); Red Cell Distribution Width 20.3 % (12.1-15.1)
--- NOTE | 2023-07-30 12:35 | PC.NURSE ---
Written report received. Care assumed.
[2023-07-30] MEDS: ALPRAZolam 0.5 mg Tablet 0.25 MG PO (14:28)
[2023-07-30] MEDS: ondansetron 2 mg/ML SDV 2 mL 4 MG IVP (14:42)
--- NOTE | 2023-07-30 14:57 | P.PN_ITS ---
Subjective 2 Subjective: She reports some intermittently makes stools, sometimes with reddish blood, sometimes dark. No abdominal pain. Vitals/I&O/Wt Last Vital Signs Temp 97.5 F L 07/30/23 12:00 Pulse 86 07/30/23 12:00 Resp 19 H 07/30/23 12:00 BP 152/85 07/30/23 12:00 Pulse Ox 94 07/30/23 12:00 O2 Del Method Room Air 07/30/23 12:00 07/29/23 07/30/23 07/30/23 22:59 06:59 14:59 Intake Total 250 / 250 970 / 970 Output Total 0 / 0 Balance 250 / 250 970 / 970 Weight last 48 hrs Weight 83.518 kg Weight 77.111 kg Weight 77.111 kg Physical Exam 2 Narrative: Accompanied by family. Const: COMMON NORMALS: patient oriented x3 and alert GENERAL APPEARANCE: c ooperative ORIENTATION/CONSCIOUSNESS: Yes awake HENMT: COMMON NORMALS: oropharynx normal Eye: OTHER: Mild left eye conjunctival hemorrhage after recent eye surgery. Neck/C-Spine: COMMON NORMALS: no JVD Resp: COMMON NORMALS: normal respiratory effort and clear to auscultation bilaterally AUSCULTATION: clear to auscultation bilaterally Cardio: COMMON NORMALS: no JVD, regular rhythm, S1 normal heart sound present, S2 normal heart sound present and No murmurs present (Cardio) RHYTHM: regular rhythm HEART SOUNDS: S1 normal heart sound present and S2 normal heart sound present GI: COMMON NORMALS: Normal to inspection, nondistended, normoactive bowel sounds present, Soft to palpation and non-tender PALPATION: Yes Soft to palpation Extremity: COMMON NORMALS: no joint enlargement and no pedal edema Neuro: COMMON NORMALS: patient oriented x3 and moves all extremities S ENSORIUM/ORIENTATION: Yes alert Skin: COMMON NORMALS: no rashes or lesions noted GENERAL SKIN EXAM: no rashes or lesions noted Data 07/30/23 11:48 07/30/23 02:49 A&P Assessment and plan (1) Acute anemia: (2) Chronic anticoagulation: (3) DVT (deep venous thrombosis): (4) GI bleed: Qualifiers: GI bleed type/associated pathology: unspecified gastrointestinal hemorrhage type Qualified Code(s): K92.2 - Gastrointestinal hemorrhage, unspecified (5) Chronic kidney disease with end stage renal failure on dialysis: (6) Squamous cell carcinoma of anal canal: Plan Reviewed hemoglobin, platelets. Reviewed surgery note. Responded to transfusion, hemoglobin up to 8.8. Platelets somewhat lower at 123. Currently off Eliquis due to GI bleeding, acute blood loss anemia. Does have history of DVT back in 2019. Not on any hormone therapy. As per discussion with her does have some increased risk of DVT with hospitalization. She has met with surgery, they have discussed endoscopic evaluation and she will be starting prep, anticipated endoscopy on Tuesday. In the meantime we will repeat CBC. Additionally discussed with her on review medications noted to be on citalopram, linezolid, tramadol, discussed with her and this medication especially in combination also with anticoagulation may increase risk of bleeding. We further discussed during revisit stopping all these medicines currently. Continue PPI.Stop IV fluid. Reviewed iron panel, noted iron overload, possibly due to the frequent transfusions recently during long hospitalization in [place]. Bipolar disorder: Reports history of bipolar disorder and depression. He is only on citalopram. Discussed with her we will stop the medication currently due to risk of bleeding as above. Discussed with psychiatrist, appreciate consultation for assessment of management of conditions. She has not been following with psychiatry, although states that bipolar disorder was diagnosed by psychiatry in the past. As per discussion appreciate consideration of alternatives for both conditions which may also not contribute to risk of bleeding. Diabetic wound: Has been on linezolid. Discussed with her with risk of current treatment with linezolid with risk of bleeding, for now we are switching to vancomycin. She is agreeable. Recent eye surgery: She reports has completed moxifloxacin. Noted mild conjunctival hemorrhage. She states that she continues on prednisolone drops and requested this to be resumed. ? Hypertension continue home medications ? Type 2 diabetes mellitus, low-dose sliding scale ? Full code ? SCDs for DVT prophylaxis, Lovenox relatively contraindicated given anemia, GI bleed Attestations 2 Medical Necessity Statement*: Continue admission for assessment of management of acute blood loss anemia, GI bleeding. , High MDM includes amount and/or complexity of data reviewed/ordered [ resulted lab(s)/test(s), ordered lab(s)/test(s) and other healthcare professional discussion] and described risk of complication, morbidity or mortality of management as documented and High Time for a total of 60 minutes, includes reviewing past or interval history, examining/interviewing patient, placing orders, counseling patient/family/other support, updating patient/family/other support, discussing plan of care with staff, communicating with other healthcare providers, documenting encounter and coordinating care Diagnoses Acute anemia D64.9 Chronic anticoagulation Z79.01 DVT (deep venous thrombosis) I82.409 GI bleed K92.2 GI bleed type/associated pathology: unspecified gastrointestinal hemorrhage type Chronic kidney disease with end stage renal failure on dialysis N18.6; Z99.2 Squamous cell carcinoma of anal canal C21.1
[2023-07-30 16:30] LABS: Glucose Point of Care 98 mg/dL (70-110)
[2023-07-30] MEDS: vancomycin 1,000 MG in sodium chloride 0.9% 250 ML 250 MG IV (18:05)
[2023-07-30] MEDS: acetaminophen 325 mg Tablet 650 MG PO (19:59)
[2023-07-30] MEDS: prednisoLONE 1% Op Susp 5 mL Btl 1 DROP EYE-LEFT (20:00)
[2023-07-30 20:35] LABS: Glucose Point of Care 122 mg/dL (70-110)
--- NOTE | 2023-07-30 22:35 | PC.NURSE ---
Patient is complaining of shortness of breath. Upon assessment, saturations were 70% on room air. Patient is now on 4L nasal cannula sating at 89%. Respiratory and physician have been notified. Chest xray STAT and BNP ordered by physician.
--- NOTE | 2023-07-30 22:38 | XRR_ITS ---
PROCEDURE INFORMATION: Exam: XR Chest Exam date and time: 07/30/2023 10:47 PM Age: 48 years old Clinical indication: Shortness of breath; Patient HX: SOB TECHNIQUE: Imaging protocol: Radiologic exam of the chest. Views: 1 view. COMPARISON: CR (CHEST, ) 07/29/2023 10:25 PM FINDINGS: Tubes, catheters and devices: Left-sided Port-A-Cath. Lungs: Pulmonary vascular congestion and interstitial edema. Pleural spaces: Unremarkable. No pleural effusion. No pneumothorax. Heart/Mediastinum: Cardiomegaly. Bones/joints: Unremarkable. XR/XR chest 1V portable [id number] IMPRESSION: 1. Cardiomegaly. 2. Pulmonary vascular congestion and interstitial edema. 3. Left-sided Port-A-Cath.
[2023-07-30] MEDS: ipratropium-albuterol 3 mL Neb INHALATION (22:44)
[2023-07-30] MEDS: FUROsemide 10 mg/mL SDV 4mL 40 MG IVP (23:03)
[2023-07-30 23:06] LABS: ABG PCO2 38.7 mmHg (35-45); ABG PH Result 7.45 (7.35-7.45); Arterial Blood Gas Hematocrit 26.8 % (37-47); Blood Gas Allen Test Pos; Blood Gas Sample Site Radial, right; Blood Gas Sample Type Arterial; HCO3 ABG 27.1 mmol/L (22-26); Oxygen Device NC; PO2 FiO2 Ratio Arterial Blood 0
[2023-07-31] VITALS (12 sets, daily range): BP systolic 135–158; BP diastolic 63–71; PULSE 80–106; RESP 18–20; TEMP 36.1–36.8; O2SAT 92–99
[2023-07-31 00:45] LABS: Basophils % 0.6 %; Eosinophils # 0.1 10^3/uL (0.0-0.8); Eosinophils % 2.6 %; Lymphocytes % 22.1 %; Mean Corpuscular HGB Conc 31.9 g/dL (30-55); Mean Corpuscular Hemoglobin 34.2 pg (27-33); Mean Platelet Volume 9.1 fL (7.4-10.4); Monocytes # 0.4 10^3/uL (0.2-0.9); Monocytes % 7.7 %; Neutrophils # 3.09 10^3/uL (1.8-7.7); Neutrophils % 66.1 %; Nucleated Red Blood Cells % 0 %; Platelet Count 113 10^3/cmm (157-399); Red Blood Count 2.43 10^6/uL (3.85-5.65); Red Cell Distribution Width 20.8 % (12.1-15.1); White Blood Count 4.67 10^3/uL (3.29-11.43)
[2023-07-31 01:15] LABS: Alanine Aminotransferase 18 U/L (0-33); Albumin Level 3.7 g/dL (3.5-5.2); Alkaline Phosphatase 53 U/L (35-105); Anion Gap 11.8 (5-19); Aspartate Amino Transferase 15 U/L (0-32); Blood Urea Nitrogen 32 mg/dL (6-20); Calcium 8.4 mg/dL (8.5-10.5); Carbon Dioxide 26 mmol/L (22-29); Chloride 103 mmol/L (98-107); Creatinine Clr Calc Pharmacy 16.7151; Globulin 2.4 g/dL (1.3-4.6); Glomerular Filtration Rate 9.9 mL/min (90-130); Glucose 86 mg/dL (65-115); NT Pro B Type Natriuretic Pept 11445 pg/mL (0-125); Osmolality Calculated 290 mOsm/kg (285-295); Potassium 3.8 mmol/L (3.5-5.1); Sodium 137 mmol/L (136-145); Total Bilirubin 0.5 mg/dL (0.15-1.2); Total Protein 6.1 g/dL (6.6-8.7)
[2023-07-31] MEDS: ipratropium-albuterol 3 mL Neb INHALATION (04:40)
[2023-07-31] MEDS: saline nasal spray 44mL Btl 1 SPRAY NASAL (05:55)
[2023-07-31] MEDS: pantoprazole 40 mg SDV IVP ×2 (05:55→17:09)
[2023-07-31] MEDS: sucralfate 1 gm/10 mL Oral Liq UDC PO ×4 (05:55→20:40)
[2023-07-31 05:59] LABS: Basophils % 0.5 %; Eosinophils # 0.1 10^3/uL (0.0-0.8); Eosinophils % 2.3 %; Hematocrit 26.5 % (36-47); Lymphocytes # 0.8 10^3/uL (0.8-4.8); Lymphocytes % 14.2 %; Mean Corpuscular HGB Conc 32.8 g/dL (30-55); Mean Corpuscular Hemoglobin 34.5 pg (27-33); Mean Corpuscular Volume 105.2 fl (85-98); Mean Platelet Volume 8.9 fL (7.4-10.4); Monocytes # 0.4 10^3/uL (0.2-0.9); Monocytes % 6.6 %; Neutrophils # 4.22 10^3/uL (1.8-7.7); Neutrophils % 75.7 %; Nucleated Red Blood Cells % 0 %; Platelet Count 109 10^3/cmm (157-399); Red Blood Count 2.52 10^6/uL (3.85-5.65); Red Cell Distribution Width 20.4 % (12.1-15.1); White Blood Count 5.58 10^3/uL (3.29-11.43)
--- NOTE | 2023-07-31 06:03 | PC.NURSE ---
Patient had another episode of shortness of breath, oxygen saturation at 90% on 4 liters. Respiratory at bedside to give breathing treatment and physician notified. Physician ordered 40mg IVP Lasix once. Plan of care ongoing.
[2023-07-31 06:12] LABS: Anion Gap 13.7 (5-19); Blood Urea Nitrogen 35 mg/dL (6-20); Carbon Dioxide 25 mmol/L (22-29); Chloride 103 mmol/L (98-107); Creatinine Clr Calc Pharmacy 16.1521; Glomerular Filtration Rate 9.4 mL/min (90-130); Glucose 130 mg/dL (65-115); Osmolality Calculated 296 mOsm/kg (285-295); Potassium 3.7 mmol/L (3.5-5.1); Sodium 138 mmol/L (136-145)
[2023-07-31] MEDS: FUROsemide 10 mg/mL SDV 4mL 40 MG IVP (06:13)
[2023-07-31 06:51] LABS: Glucose Point of Care 102 mg/dL (70-110)
[2023-07-31] MEDS: acetaminophen 325 mg Tablet 650 MG PO ×2 (07:05→17:09)
[2023-07-31] MEDS: ondansetron 2 mg/ML SDV 2 mL 4 MG IVP (07:05)
[2023-07-31] MEDS: bisacodyl 5 mg Tablet 10 MG PO (08:49)
[2023-07-31] MEDS: amlodipine 5 mg Tablet PO (08:49)
[2023-07-31] MEDS: sevelamer 800 mg Tablet 1600 MG PO ×3 (08:49→17:17)
[2023-07-31] MEDS: b-complex-vitamin c Tablet 1 EACH PO (08:49)
[2023-07-31] MEDS: carvedilol 25 mg Tablet PO (08:49)
[2023-07-31] MEDS: hyDRALAzine 25 mg Tablet PO ×3 (08:49→20:39)
[2023-07-31] MEDS: prednisoLONE 1% Op Susp 5 mL Btl 1 DROP EYE-LEFT (08:50)
--- NOTE | 2023-07-31 09:08 | P.PN_ITS ---
Subjective 2 Subjective: Patient has been stable, no significant complaints had some nausea overnight. Hemoglobin is 8.7 this morning. Vitals/I&O/Wt Last Vital Signs Temp 97.0 F L 07/31/23 07:51 Pulse 95 07/31/23 07:51 Resp 18 07/31/23 07:51 BP 158/70 07/31/23 07:51 Pulse Ox 96 07/31/23 07:51 O2 Del Method Nasal Cannula 07/31/23 07:51 O2 Flow Rate 4 07/31/23 04:42 07/30/23 07/31/23 07/31/23 22:59 06:59 14:59 Intake Total 1610.0 / 2580.0 Balance 1610.0 / 2580.0 Weight last 48 hrs Weight 187 lb 2 oz Weight 184 lb 2 oz Weight 170 lb Weight 170 lb Physical Exam 2 GI: OTHER: Abdomen soft, nontender, nondistended. Data 07/31/23 05:33 07/31/23 05:33 A&P Assessment and plan (1) GI bleed: Qualifiers: GI bleed type/associated pathology: unspecified gastrointestinal hemorrhage type Qualified Code(s): K92.2 - Gastrointestinal hemorrhage, unspecified (2) Squamous cell carcinoma of anal canal: Plan Stable hemoglobin, no other significant changes. For upper and lower endoscopy tomorrow. Please ensure the patient gets dialysis either today or otherwise and is to be after endoscopy tomorrow. Attestations 2 Medical Necessity Statement*: Per medical team Coding Level of Care Code Acute Code for Chg Fwd Diagnoses GI bleed K92.2 GI bleed type/associated pathology: unspecified gastrointestinal hemorrhage type Squamous cell carcinoma of anal canal C21.1
[2023-07-31 10:58] LABS: Glucose Point of Care 100 mg/dL (70-110)
[2023-07-31] MEDS: peg /e-lyte soln 4,000 mL Btl 4000 ML PO (11:35)
[2023-07-31] MEDS: PREDNISOLONE 1% 1 EACH EYE-LEFT ×3 (11:35→20:39)
[2023-07-31 16:21] LABS: Glucose Point of Care 100 mg/dL (70-110)
[2023-07-31] MEDS: ALPRAZolam 0.5 mg Tablet 0.25 MG PO (17:09)
--- NOTE | 2023-07-31 17:33 | P.NPUCON_ITS ---
Providers/Reason for Consult 2 Consulting Physican/Specialty*: Jay Jay Alexander MD/Psychiatry Reason for Consult*: psychotropic change. Attending Physician: Lawrence Palacio Primary Care Provider: Herber Hussein MD Psych Consult HPI History of Present Illness Bharati Anthony is a 48 year old female With a history of possible GI bleed currently on anticoagulants and extended history of type 2 diabetes, history of DVTs and end-stage renal disease currently on dialysis. Request was made for consult to consider alternatives for the patient's current antidepressant medication as it may be potentiating excess bleeding. Patient was seen on the medical floor and was a good historian. She had reported a past history of depression with 1 previous other SSRI trial. She had reported that she had no previous history of inpatient psychiatric hospitalization. She reports that she has had periods of excessively elevated mood with brief periods of increased energy without endorsing racing thoughts or any clear grandiosity. She had reported frequently having cycling between highs and lows but states that her depression has been present for the past 6 years. She had stated that she began to have increased problems with her mood in her 20s but states that her continued problems with her mood had not lead to any suicide attempts. She denied any clear history of psychosis. She reported that she has been on disability for several years. She has reported that she has been compliant with her complicated medication regimen. She reports that she has some anxiety on the days of receiving dialysis and takes Xanax to help calm her during that time. She reports low energy frequently, sleep continuity disruption, but no reduced appetite and no anhedonia. She reports no episodes of tearfullness and denies suicidal ideation. Psychiatric history: No history of inpatient hospitalizations or treatment. She reports having seen a psychiatrist before but states that her depression has mostly been managed by her primary care physicians. She reported previous trials on mirtazapine which she states made her pass out and reported 1 other previous SSRI. Current psychiatric medications: xanax prn, Citalopram 60mg daily. 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 She currently lives in [place] and is on disability. She had been previously twice and is now . She has been on disability for over 5 years. She has 1 daughter who she currently lives with. She denied any history of trauma during her childhood. Meds Home Medications and Allergies Home Medications Medication Instructions Recorded Confirmed Last Taken Type Diabetic Shoes #1 ea 06/19/19 07/30/23 Unknown Rx acetaminophen 325 mg capsule 325 mg PO QID PRN Pain 06/19/19 07/30/23 05/17/20 History blood-glucose meter (OneTouch #1 ea 06/19/19 07/30/23 Unknown History UltraMini kit) citalopram 40 mg tablet 40 mg PO DAILY 06/19/19 07/30/23 01/20/23 History pantoprazole 40 mg tablet,delayed 40 mg PO BID 06/19/19 07/30/23 01/20/23 History release sodium bicarbonate 650 mg tablet 650 mg PO DAILY PRN Dialysis 09/18/19 07/30/23 01/20/23 History apixaban 2.5 mg tablet (Eliquis) 2.5 mg PO BID 12/11/19 07/30/23 01/20/23 History alprazolam 0.25 mg tablet (Xanax) 0.25 mg PO BID PRN Anxiety 04/01/20 07/30/23 01/20/23 History diphenhydramine HCl 25 mg capsule 25 mg PO TID PRN Itching 04/01/20 07/30/23 05/17/20 History (Tyraryl) amlodipine 5 mg tablet 5 mg PO DAILY 01/21/23 07/30/23 01/20/23 History hydralazine 25 mg tablet 25 mg PO TID 01/21/23 07/30/23 01/20/23 History melatonin 10 mg capsule 10 mg PO DAILY 01/21/23 07/30/23 Unknown History ondansetron HCl 4 mg tablet 4 mg PO Q8H PRN Nausea 01/21/23 07/30/23 Unknown History ropinirole 0.25 mg tablet 0.25 mg PO BEDTIME 01/21/23 07/30/23 01/20/23 History sevelamer carbonate 800 mg tablet 1,600 mg PO TID 01/21/23 07/30/23 01/20/23 History sitagliptin phosphate 25 mg tablet 25 mg PO DAILY 01/21/23 07/30/23 01/20/23 History (Dirk) vit B,C-folic ac 800 mcg-zinc 12.5 1 tab PO DAILY 01/21/23 07/30/23 01/20/23 History mg-selen-D3 2,000 unit-vit E tablet (RenaPlex-D) promethazine 25 mg tablet 25 mg PO QID PRN Nausea And 05/02/23 07/30/23 Unknown History Vomiting carvedilol 25 mg tablet 25 mg PO DAILY 06/04/23 07/30/23 Unknown History citalopram 20 mg tablet 20 mg PO DAILY 06/04/23 07/30/23 Unknown History difelikefalin 50 mcg/mL 50 mcg IV QMWF 06/04/23 07/30/23 Unknown History intravenous solution (Korsuva) semaglutide 1 mg/dose (4 mg/3 mL) 1 mg SUBCUT Q7D 06/04/23 07/30/23 Unknown History subcutaneous pen injector (Ozempic) albuterol sulfate 90 mcg/actuation 2 inh inhalation Q6H PRN shortness 06/05/23 07/30/23 Unknown Rx aerosol inhaler of breath or wheezing #8.5 grams guaifenesin 600 mg tablet, 1,200 mg (2 x 600 mg) PO BID #30 06/05/23 07/30/23 Unknown Rx extended release 12 hr (Mucinex) tabs prednisone 20 mg tablet 40 mg (2 x 20 mg) PO DAILY #3 tabs 06/05/23 07/30/23 Unknown Rx linezolid 600 mg tablet 600 mg PO BID #28 tabs 07/18/23 07/30/23 Unknown Rx prednisolone acetate 1 % eye 1 drp ophthalmic (eye) QID 07/30/23 07/30/23 Unknown History drops,suspension tramadol 50 mg tablet 50 - 100 mg PO Q6H PRN Pain 07/30/23 07/30/23 Unknown History Allergies Allergy/AdvReac Type Severity Reaction Status Date / Time adhesive tape Allergy Unknown blisters Verified 07/30/23 08:21 Cephalosporins Allergy Unknown unknown Verified 07/30/23 08:21 doxycycline Allergy ADR-Vomitin Verified 07/30/23 08:21 g latex Allergy blisters Verified 07/30/23 08:21 Current Medications Current Medications Generic Name Dose Route Start Last Admin Trade Name Freq PRN Reason Stop Dose Admin Acetaminophen 650 mg 07/29/23 23:34 07/31/23 17:09 Acetaminophen 325 Mg Tablet PO 650 mg Q6H PRN Administration Mild/Mod Pain Or Temp >/= 101 Albuterol/Ipratropium 3 ml 07/30/23 00:00 07/31/23 04:40 Ipratropium-Albuterol 3 Ml Neb INHALATION 3 ml Q6H PRN Administration SHORTNESS OF BREATH Alprazolam 0.25 mg 07/29/23 23:41 07/31/23 17:09 Alprazolam 0.5 Mg Tablet PO 0.25 mg BID PRN Administration Anxiety Amlodipine Besylate 5 mg 07/30/23 09:00 07/31/23 08:49 Amlodipine 5 Mg Tablet PO 5 mg DAILY BRETT Administration Carvedilol 25 mg 07/30/23 09:00 07/31/23 08:49 Carvedilol 25 Mg Tablet PO 25 mg DAILY BRETT Administration Citalopram Hydrobromide 20 mg 07/30/23 09:00 07/30/23 08:33 Citalopram 20 Mg Tablet PO 20 mg DAILY BRETT Administration Hydralazine HCl 25 mg 07/30/23 09:00 07/31/23 14:52 Hydralazine 25 Mg Tablet PO 25 mg TID [facility] Administration Vancomycin HCl 1,000 mg/ 250 mls @ 250 mls/hr 07/30/23 16:00 07/30/23 19:05 Sodium Chloride IV Infused Q48H [facility] Infusion Insulin Human Lispro 0 unit 07/30/23 08:00 07/31/23 16:29 Insulin Lispro 100 Unit/1 Ml SUBCUT Not Given TIDWM [facility] Protocol Multivitamins 1 each 07/30/23 09:00 07/31/23 08:49 X-Qfovtqd-Fvdeyea C Tablet PO 1 each DAILY BRETT Administration Non-Formulary Medication 1 drop 07/30/23 17:00 07/31/23 16:36 Moxifloxacin EYE-LEFT Not Given QID [facility] Non-Formulary 1 each 07/31/23 13:00 07/31/23 17:09 Medication EYE-LEFT 1 each Prednisolone 1% Op QID [facility] Administration Susp 5 Ml Btl Ondansetron HCl 4 mg 07/29/23 23:34 07/31/23 07:05 Ondansetron 2 Mg/Ml Sdv 2 Ml IVP 4 mg Q8H PRN Administration vomiting, or N/V if npo Pantoprazole Sodium 40 mg 07/30/23 06:00 07/31/23 17:09 Pantoprazole 40 Mg Sdv IVP 40 mg BID@0600,1800 BRETT Administration Ropinirole HCl 0.25 mg 07/30/23 21:00 07/30/23 20:00 Ropinirole 0.25 Mg Tablet PO 0.25 mg BEDTIME BRETT Administration Sevelamer Carbonate 1,600 mg 07/30/23 08:00 07/31/23 17:17 Sevelamer 800 Mg Tablet PO 1,600 mg TIDWM BRETT Administration Sodium Chloride 1 spray 07/31/23 04:25 07/31/23 05:55 Saline Nasal [place] 44ml Btl NASAL 1 spray PRN PRN Administration DRYNESS Sucralfate 1 gm 07/30/23 07:00 07/31/23 17:09 Sucralfate 1 Gm/10 Ml Oral Liq Udc PO 1 gm AC&BEDTIME BRETT Administration PFSH NPU 2 PFSH: Medical History Tachycardia Diabetes Deep vein thrombosis (DVT) during Chronic anticoagulation Squamous cell carcinoma of anal canal Diabetes mellitus End-stage renal disease Surgical History Status post surgery (05/19/20) Removal of peritoneal dialysis catheter Port-A-Cath in place S/P hemodialysis catheter insertion (01/09/20) Removed 11/18/2020 Peritoneal dialysis status H/O colonoscopy H/O hand surgery History of hip surgery History of hysterectomy Family History Other Cancer Diabetes Denies family history of Anesthesia complication Bleeding disorder Social History Smoking and tobacco/nicotine status: current every day tobacco/nicotine user Alcohol intake: never Substance/Drug Use: never Household members: family Marital status: Single Current occupational status: disabled Mental Status Exam 2 MSE Comments: Pleasant cooperative female who appears older than her stated age. She appeared somewhat cachectic. Her speech was normal in regards to rate rhythm and prosody. Her mood was described as okay. Her affect was restricted in range and mood incongruent. Her thought process linear logical and goal-directed. Her thought content showed no evidence of homicidal or suicidal ideation. She did not appear to be responding internal stimuli. There was no clear evidence of delusional thinking. Her attention span appeared adequate her insight was fair. Her judgment appeared fair. Her impulse control appeared adequate. Her recent and remote memory were grossly intact. Vitals/I&O/Wt Last Vital Signs Temp 98.2 F 07/31/23 13:51 Pulse 88 07/31/23 15:10 Resp 18 07/31/23 15:10 BP 147/68 07/31/23 13:51 Pulse Ox 99 07/31/23 15:10 O2 Del Method Nasal Cannula 07/31/23 15:10 O2 Flow Rate 2 07/31/23 15:10 07/31/23 07/31/23 07/31/23 06:59 14:59 22:59 Intake Total 480 / 480 Output Total 1100 / 1100 Balance -620 / -620 Weight last 48 hrs Weight 84.878 kg Weight 83.518 kg Weight 77.111 kg Weight 77.111 kg Data NPU 07/31/23 05:33 07/31/23 05:33 A&P Assessment and plan (1) Major depressive disorder, recurrent: Plan 1. Unclear history of hypomania, but clear history of depression. Celexa at 60mg is problematic with signficant 2-3x risk of causing bleeding. Two options not associated with increasing bleeding risk include wellbutrin and mirtazipine. Patient had already reported a previous failure on mirtazapine but was willing to consider Wellbutrin in place of Celexa. Wellbutrin's metabolites do have a tendency to accumulate in patients with severe end-stage renal disease and literature reviews have suggested that Wellbutrin may need to be given at a dose of 150 mg once every 3 days routinely. Other alternatives for treating patient with ESRD include weekly psychotherapy and possibly transcranial magnetic stimulation (as long as there is no hx of seizures) Attestations NPU 2 Medical Necessity Statement*: NA-no inpatient hospitalization necessary. Coding Level of Care Code Acute Code for Chg Fwd Diagnoses Major depressive disorder, recurrent F33.9
--- NOTE | 2023-07-31 19:31 | P.PN_ITS ---
Subjective 2 Subjective: Was short of breath overnight and this morning. Without chest pain. So far no additional hematochezia or melena. Vitals/I&O/Wt Last Vital Signs Temp 98.2 F 07/31/23 17:36 Pulse 87 07/31/23 17:36 Resp 20 H 07/31/23 17:36 BP 135/63 07/31/23 17:36 Pulse Ox 99 07/31/23 17:36 O2 Del Method Nasal Cannula 07/31/23 17:36 O2 Flow Rate 2 07/31/23 15:10 07/31/23 07/31/23 07/31/23 06:59 14:59 22:59 Intake Total 480 / 480 360 / 840 Output Total 1100 / 1100 Balance -620 / -620 360 / -260 Weight last 48 hrs Weight 84.878 kg Weight 83.518 kg Weight 77.111 kg Physical Exam 2 Const: COMMON NORMALS: patient oriented x3 and alert GENERAL APPEARANCE: c ooperative ORIENTATION/CONSCIOUSNESS: Yes awake HENMT: COMMON NORMALS: oropharynx normal Eye: OTHER: Improving mild left eye conjunctival hemorrhage after recent eye surgery. Neck/C-Spine: COMMON NORMALS: no JVD Resp: COMMON NORMALS: normal respiratory effort and clear to auscultation bilaterally AUSCULTATION: clear to auscultation bilaterally and diminished lung sounds on the left in the lower lung [place] Cardio: COMMON NORMALS: no JVD, regular rhythm, S1 normal heart sound present, S2 normal heart sound present and No murmurs present (Cardio) RHYTHM: regular rhythm HEART SOUNDS: S1 normal heart sound present and S2 normal heart sound present GI: COMMON NORMALS: Normal to inspection, nondistended, normoactive bowel sounds present, Soft to palpation and non-tender PALPATION: Yes Soft to palpation Extremity: COMMON NORMALS: no joint enlargement and no pedal edema Neuro: COMMON NORMALS: patient oriented x3 and moves all extremities S ENSORIUM/ORIENTATION: Yes alert Skin: COMMON NORMALS: no rashes or lesions noted GENERAL SKIN EXAM: no rashes or lesions noted Data 07/31/23 05:33 07/31/23 05:33 A&P Assessment and plan (1) Acute anemia: (2) Chronic anticoagulation: (3) DVT (deep venous thrombosis): (4) GI bleed: Qualifiers: GI bleed type/associated pathology: unspecified gastrointestinal hemorrhage type Qualified Code(s): K92.2 - Gastrointestinal hemorrhage, unspecified (5) Chronic kidney disease with end stage renal failure on dialysis: (6) Squamous cell carcinoma of anal canal: Plan Hypoxia: Dyspnea and new hypoxia with new oxygen requirement overnight, has been short of breath. She received blood transfusion and IV fluids/hemodynamic resuscitation when she came into the hospital. Fluid overload possible taco. IV fluids were discontinued yesterday. She does have end-stage kidney disease, on hemodialysis, but does still make urine. Received Lasix 40 mg x 2 yesterday. Noted a neutral balance. Will give Lasix 60 mg IV x 1. Continue oxygen support. Reassess oxygenation. Reviewed chest x-ray. Requested telenephro consultation for tomorrow for hemodialysis. Acute blood loss anemia: Reviewed hemoglobin, platelets completely down to 109. Hemoglobin similar to 8.7. She denies additional hematochezia or melena episodes so far. Taking in prep for colonoscopy with upper and lower endoscopy planned for tomorrow by surgery. Reviewed surgery note. Follow-up CBC requested. Is on clear liquid diet. Currently off Eliquis due to GI bleeding, acute blood loss anemia. Does have history of DVT back in 2019. Not on any hormone therapy. As per discussion with her does have some increased risk of DVT with hospitalization. Reviewed iron panel, noted iron overload, possibly due to the frequent transfusions recently during long hospitalization in [place]. Bipolar disorder: Reviewed psychiatry note, appreciate consultation. On consideration of additional medications, Wellbutrin may be considered at a dose of once every 3 days given possibility of accumulation with hemodialysis. She had previously failed treatment with mirtazapine. Other considerations for treatment with ESRD included psychotherapy and transcranial magnetic stimulation (without history of seizures). Reports history of bipolar disorder and depression. He is only on citalopram. Discussed with her we will stop the medication currently due to risk of bleeding as above. Discussed with psychiatrist, appreciate consultation for assessment of management of conditions. She has not been following with psychiatry, although states that bipolar disorder was diagnosed by psychiatry in the past. As per discussion appreciate consideration of alternatives for both conditions which may also not contribute to risk of bleeding. Diabetic wound: Has been on linezolid. Discussed with her with risk of current treatment with linezolid with risk of bleeding, for now we are switching to vancomycin. She is agreeable. Recent eye surgery: She reports has completed moxifloxacin. Noted mild conjunctival hemorrhage. She states that she continues on prednisolone drops and requested this to be resumed. ? Hypertension continue home medications ? Type 2 diabetes mellitus, low-dose sliding scale ? Full code ? SCDs for DVT prophylaxis, Lovenox relatively contraindicated given anemia, GI bleed Attestations 2 Medical Necessity Statement*: Continue admission for assessment and management of new hypoxia, fluid overload, possible transfusion associated circulatory overload, diuretic challenge, arrangement for hemodialysis, and lady with acute blood loss anemia GI bleeding, additional comorbidities as above. Diagnoses Acute anemia D64.9 Chronic anticoagulation Z79.01 DVT (deep venous thrombosis) I82.409 GI bleed K92.2 GI bleed type/associated pathology: unspecified gastrointestinal hemorrhage type Chronic kidney disease with end stage renal failure on dialysis N18.6; Z99.2 Squamous cell carcinoma of anal canal C21.1
[2023-07-31] MEDS: FUROsemide 10 mg/mL SDV 10mL 60 MG IVP (20:38)
[2023-07-31] MEDS: ropinirole 0.25 mg Tablet PO (20:40)
[2023-07-31 21:00] LABS: Glucose Point of Care 85 mg/dL (70-110)
[2023-08-01] VITALS (11 sets, daily range): BP systolic 101–154; BP diastolic 58–78; PULSE 85–111; RESP 14–18; TEMP 36.1–36.9; O2SAT 95–99
[2023-08-01 03:21] LABS: Basophils % 0.8 %; Eosinophils # 0.1 10^3/uL (0.0-0.8); Eosinophils % 2.2 %; Hematocrit 25.1 % (36-47); Lymphocytes # 0.9 10^3/uL (0.8-4.8); Lymphocytes % 18.2 %; Mean Corpuscular HGB Conc 32.7 g/dL (30-55); Mean Corpuscular Hemoglobin 34.5 pg (27-33); Mean Corpuscular Volume 105.5 fl (85-98); Mean Platelet Volume 9.3 fL (7.4-10.4); Monocytes # 0.5 10^3/uL (0.2-0.9); Monocytes % 9.2 %; Neutrophils # 3.46 10^3/uL (1.8-7.7); Neutrophils % 69.2 %; Nucleated Red Blood Cells % 0 %; Platelet Count 112 10^3/cmm (157-399); Red Blood Count 2.38 10^6/uL (3.85-5.65); Red Cell Distribution Width 19.1 % (12.1-15.1)
[2023-08-01 03:49] LABS: Blood Urea Nitrogen 36 mg/dL (6-20); Calcium 8.3 mg/dL (8.5-10.5); Carbon Dioxide 24 mmol/L (22-29); Chloride 101 mmol/L (98-107); Creatinine Clr Calc Pharmacy 14.1331; Glomerular Filtration Rate 8.1 mL/min (90-130); Glucose 80 mg/dL (65-115); Osmolality Calculated 293 mOsm/kg (285-295); Sodium 138 mmol/L (136-145)
[2023-08-01] MEDS: sodium chloride 0.9% 1,000 ML 30 ML IV (06:17)
[2023-08-01] MEDS: sucralfate 1 gm/10 mL Oral Liq UDC PO ×3 (06:17→20:27)
[2023-08-01] MEDS: pantoprazole 40 mg SDV IVP ×2 (06:17→17:51)
[2023-08-01 06:32] LABS: Glucose Point of Care 89 mg/dL (70-110)
[2023-08-01] MEDS: carvedilol 25 mg Tablet PO (08:01)
[2023-08-01] MEDS: amlodipine 5 mg Tablet PO (08:01)
[2023-08-01] MEDS: b-complex-vitamin c Tablet 1 EACH PO (08:01)
[2023-08-01] MEDS: PREDNISOLONE 1% 1 EACH EYE-LEFT ×3 (08:10→20:25)
[2023-08-01] MEDS: sevelamer 800 mg Tablet 1600 MG PO ×2 (09:16→17:51)
--- NOTE | 2023-08-01 09:29 | PC.CHAP ---
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 [] Patient/Family/Request visit [] Outpatient visit [] Follow-up visit [] Physician referral [] Code/Alert [x] Routine visit [] Staff referral [] Actively dying [x] Patient sleeping [] Family support [] [] Out of room [] Palliative care [] [] Receiving care in room [] Pre-surgical visit [] Trauma [] Long length of stay [] ICU visit [] Other: Relational/Emotional Strength [] Patient feels connected with others/family/visitors/staff [] Distress [] Loneliness/isolation [] Abandonment Spirituality of Patient [] Person of Elsie [] Attends Druze of their Elsie [] Believes in Prayer [] Reads Bible or Yarsani materials [] There are Spiritual issues to be addressed [facility] [employer] Interventions [x] Prayer [] Active listening [] Non-anxious presence [] Spiritual/emotional support [] Crisis/trauma care [] Spiritual counseling [] Bereavement support [] Provided bereavement packet [] Provided Bible/devotional materials [] Provided toy/stuffed animal, coloring book to patient or family member [] Provided Communion [] Anointing/[place] [] Salvation [] Completed spiritual assessment [] Other: Impact on Illness or Injury [] Angry [] Fearful [] Anxious [] Often cries [] Exhaustion [] Unable to work [] Unable to attend mandaen [] Unable to walk/stand [] Unable to read [] Unable to drive [] Unable to eat/drink [] Unable to sleep [] Unable to be with family [] Patient intubated [] Other: Summary Time spent with patient
--- NOTE | 2023-08-01 09:32 | P.HPUD_ITS ---
Surgery/Procedure H&P Update DATE OF PROCEDURE: August 01, 2023 DATE H&P PERFORMED: 07/30/23 H&P UPDATE INFORMATION: I have reviewed H&P completed within last 30 days, I have examined patient prior to procedure, No changes to prior documentation and H&P is in [facility] [place] EMR on date indicated PLANNED PROCEDURE: Operation Date: 08/01/23 13:30 Proposed Procedures p EGD(Not Applicable) - Dillon Cárdenas MD s Colonoscopy(Not Applicable) - Dillon Cárdenas MD
[2023-08-01] MEDS: ondansetron 2 mg/ML SDV 2 mL 4 MG IVP (09:40)
[2023-08-01 10:48] LABS: Glucose Point of Care 78 mg/dL (70-110)
[2023-08-01] MEDS: ALPRAZolam 0.5 mg Tablet 0.25 MG PO (11:44)
--- NOTE | 2023-08-01 12:10 | ANES.PREANE2 ---
Pre-Anesthetic Assessment Height/Weight: Height 1.75 m Weight 77.111 kg Temp Pulse Resp BP Pulse Ox O2 Del Method O2 Flow Rate 98.4 F 107 H 16 143/67 95 Nasal Cannula 2 08/01/23 07:52 08/01/23 07:52 08/01/23 07:52 08/01/23 07:52 08/01/23 07:52 08/01/23 07:52 07/31/23 15:10 Operation Date: 08/01/23 13:30 Proposed Procedures p EGD(Not Applicable) - Dillon Cárdenas MD s Colonoscopy(Not Applicable) - Dillon Cárdenas MD Social Tobacco Exam alert, oriented x 3, clear to auscultation bilaterally and regular rate & rhythm Airway Submandibular: within normal limits Cervical ROM: within normal limits Mallampati: Class I Dentition: false Pulmonary Chronic Obstructive Pulmonary Disease CV/HEM Congestive Heart Failure Chronic Renal Failure dialysis 07/28 Hepatic None reported GI None reported Metabolic Diabetes Mellitus Anesthetic Plan ASA status: 3 Anesthesia: MAC Medications/Allergies Home Medications Medication Instructions Recorded Confirmed Last Taken Type Diabetic Shoes #1 ea 06/19/19 07/30/23 Unknown Rx acetaminophen 325 mg capsule 325 mg PO QID PRN Pain 06/19/19 07/30/23 05/17/20 History blood-glucose meter (OneTouch #1 ea 06/19/19 07/30/23 Unknown History UltraMini kit) citalopram 40 mg tablet 40 mg PO DAILY 06/19/19 07/30/23 01/20/23 History pantoprazole 40 mg tablet,delayed 40 mg PO BID 06/19/19 07/30/23 01/20/23 History release sodium bicarbonate 650 mg tablet 650 mg PO DAILY PRN Dialysis 09/18/19 07/30/23 01/20/23 History apixaban 2.5 mg tablet (Eliquis) 2.5 mg PO BID 12/11/19 07/30/23 01/20/23 History alprazolam 0.25 mg tablet (Xanax) 0.25 mg PO BID PRN Anxiety 04/01/20 07/30/23 01/20/23 History diphenhydramine HCl 25 mg capsule 25 mg PO TID PRN Itching 04/01/20 07/30/23 05/17/20 History (Benadryl) amlodipine 5 mg tablet 5 mg PO DAILY 01/21/23 07/30/23 01/20/23 History hydralazine 25 mg tablet 25 mg PO TID 01/21/23 07/30/23 01/20/23 History melatonin 10 mg capsule 10 mg PO DAILY 01/21/23 07/30/23 Unknown History ondansetron HCl 4 mg tablet 4 mg PO Q8H PRN Nausea 01/21/23 07/30/23 Unknown History ropinirole 0.25 mg tablet 0.25 mg PO BEDTIME 01/21/23 07/30/23 01/20/23 History sevelamer carbonate 800 mg tablet 1,600 mg PO TID 01/21/23 07/30/23 01/20/23 History sitagliptin phosphate 25 mg tablet 25 mg PO DAILY 01/21/23 07/30/23 01/20/23 History (Víctoruvia) vit B,C-folic ac 800 mcg-zinc 12.5 1 tab PO DAILY 01/21/23 07/30/23 01/20/23 History mg-selen-D3 2,000 unit-vit E tablet (RenaPlex-D) promethazine 25 mg tablet 25 mg PO QID PRN Nausea And 05/02/23 07/30/23 Unknown History Vomiting carvedilol 25 mg tablet 25 mg PO DAILY 06/04/23 07/30/23 Unknown History citalopram 20 mg tablet 20 mg PO DAILY 06/04/23 07/30/23 Unknown History difelikefalin 50 mcg/mL 50 mcg IV QMWF 06/04/23 07/30/23 Unknown History intravenous solution (Korsuva) semaglutide 1 mg/dose (4 mg/3 mL) 1 mg SUBCUT Q7D 06/04/23 07/30/23 Unknown History subcutaneous pen injector (Ozempic) albuterol sulfate 90 mcg/actuation 2 inh inhalation Q6H PRN shortness 06/05/23 07/30/23 Unknown Rx aerosol inhaler of breath or wheezing #8.5 grams guaifenesin 600 mg tablet, 1,200 mg (2 x 600 mg) PO BID #30 06/05/23 07/30/23 Unknown Rx extended release 12 hr (Mucinex) tabs prednisone 20 mg tablet 40 mg (2 x 20 mg) PO DAILY #3 tabs 06/05/23 07/30/23 Unknown Rx linezolid 600 mg tablet 600 mg PO BID #28 tabs 07/18/23 07/30/23 Unknown Rx prednisolone acetate 1 % eye 1 drp ophthalmic (eye) QID 07/30/23 07/30/23 Unknown History drops,suspension tramadol 50 mg tablet 50 - 100 mg PO Q6H PRN Pain 07/30/23 07/30/23 Unknown History Allergies Allergy/AdvReac Type Severity Reaction Status Date / Time adhesive tape Allergy Unknown blisters Verified 07/30/23 08:21 Cephalosporins Allergy Unknown unknown Verified 07/30/23 08:21 doxycycline Allergy ADR-Vomitin Verified 07/30/23 08:21 g latex Allergy blisters Verified 07/30/23 08:21 Current Medications Generic Name Dose Route Start Last Admin Trade Name Freq PRN Reason Stop Dose Admin Acetaminophen 650 mg 07/29/23 23:34 07/31/23 17:09 Acetaminophen 325 Mg Tablet PO 650 mg Q6H PRN Administration Mild/Mod Pain Or Temp >/= 101 Albuterol/Ipratropium 3 ml 07/30/23 00:00 07/31/23 04:40 Ipratropium-Albuterol 3 Ml Neb INHALATION 3 ml Q6H PRN Administration SHORTNESS OF BREATH Alprazolam 0.25 mg 07/29/23 23:41 08/01/23 11:44 Alprazolam 0.5 Mg Tablet PO 0.25 mg BID PRN Administration Anxiety Amlodipine Besylate 5 mg 07/30/23 09:00 08/01/23 08:01 Amlodipine 5 Mg Tablet PO 5 mg DAILY BRETT Administration Carvedilol 25 mg 07/30/23 09:00 08/01/23 08:01 Carvedilol 25 Mg Tablet PO 25 mg DAILY BRETT Administration Citalopram Hydrobromide 20 mg 07/30/23 09:00 07/30/23 08:33 Citalopram 20 Mg Tablet PO 20 mg DAILY BRETT Administration Hydralazine HCl 25 mg 07/30/23 09:00 08/01/23 08:01 Hydralazine 25 Mg Tablet PO 25 mg TID BRETT Administration Vancomycin HCl 1,000 mg/ 250 mls @ 250 mls/hr 07/30/23 16:00 07/30/23 19:05 Sodium Chloride IV Infused Q48H BRETT Infusion Insulin Human Lispro 0 unit 07/30/23 08:00 08/01/23 11:03 Insulin Lispro 100 Unit/1 Ml SUBCUT Not Given TIDWM [facility] Protocol Multivitamins 1 each 07/30/23 09:00 08/01/23 08:01 E-Cofdkjc-Lafeycq C Tablet PO 1 each DAILY BRETT Administration Non-Formulary Medication 1 drop 07/30/23 17:00 08/01/23 09:09 Moxifloxacin EYE-LEFT Not Given QID BRETT Non-Formulary 1 each 07/31/23 13:00 08/01/23 08:10 Medication EYE-LEFT 1 each Prednisolone 1% Op QID BRETT Administration Susp 5 Ml Btl Ondansetron HCl 4 mg 07/29/23 23:34 08/01/23 09:40 Ondansetron 2 Mg/Ml Sdv 2 Ml IVP 4 mg Q8H PRN Administration vomiting, or N/V if npo Pantoprazole Sodium 40 mg 07/30/23 06:00 08/01/23 06:17 Pantoprazole 40 Mg Sdv IVP 40 mg BID@0600,1800 BRETT Administration Ropinirole HCl 0.25 mg 07/30/23 21:00 07/31/23 20:40 Ropinirole 0.25 Mg Tablet PO 0.25 mg BEDTIME BRETT Administration Sevelamer Carbonate 1,600 mg 07/30/23 08:00 08/01/23 11:26 Sevelamer 800 Mg Tablet PO Not Given TIDWM BRETT Sodium Chloride 1 spray 07/31/23 04:25 07/31/23 05:55 Saline Nasal [place] 44ml Btl NASAL 1 spray PRN PRN Administration DRYNESS Sucralfate 1 gm 07/30/23 07:00 08/01/23 11:03 Sucralfate 1 Gm/10 Ml Oral Liq Udc PO Not Given AC&BEDTIME BRETT PFSH Anesthesia Medical History Tachycardia Diabetes Deep vein thrombosis (DVT) during Chronic anticoagulation Squamous cell carcinoma of anal canal Diabetes mellitus End-stage renal disease Surgical History Status post surgery (05/19/20) Removal of peritoneal dialysis catheter Port-A-Cath in place S/P hemodialysis catheter insertion (01/09/20) Removed 11/18/2020 Peritoneal dialysis status H/O colonoscopy H/O hand surgery History of hip surgery History of hysterectomy Family History Other Cancer Diabetes Denies family history of Anesthesia complication Bleeding disorder Social History Smoking and tobacco/nicotine status: current every day tobacco/nicotine user Alcohol intake: never Substance/Drug Use: never Household members: family Marital status: Single Current occupational status: disabled Data Anesthesia 08/01/23 02:42 08/01/23 02:42 Short CBC 07/30/23 07/30/23 07/31/23 Range/Units 00:23 11:48 05:33 WBC 4.67 5.58 (3.29-11.43) 10^3/uL Hgb 8.30 L 8.80 L 8.70 L (11.27-16.99) g/dL Hct 26.0 L 27.4 L 26.5 L (36-47) % MCV 107.0 H D 104.2 H 105.2 H (85-98) fl Plt Count 113 L 123 L 109 L (157-399) 10^3/cmm Neut % (Auto) 66.1 75.7 % Neut # (Auto) 3.09 4.22 (1.8-7.7) 10^3/uL 08/01/23 Range/Units 02:42 WBC 5.00 (3.29-11.43) 10^3/uL Hgb 8.20 L (11.27-16.99) g/dL Hct 25.1 L (36-47) % MCV 105.5 H (85-98) fl Plt Count 112 L (157-399) 10^3/cmm Neut % (Auto) 69.2 % Neut # (Auto) 3.46 (1.8-7.7) 10^3/uL BMP 07/30/23 07/30/23 07/31/23 00:23 02:49 05:33 Sodium 137 139 138 Potassium 3.8 3.7 Chloride 103 103 Carbon Dioxide 26 25 BUN 32 H 35 H Creatinine 4.7 H 4.9 H Glucose 86 130 H Calcium 8.4 L 8.0 L 08/01/23 02:42 Sodium 138 Potassium 4.0 Chloride 101 Carbon Dioxide 24 BUN 36 H Creatinine 5.6 H* Glucose 80 Calcium 8.3 L Cardiac Enzymes 07/30/23 Range/Units 00:23 NT-Pro-B Natriuret Pep 19149 H (0-125) pg/mL Liver Function 07/30/23 Range/Units 00:23 Total Bilirubin 0.5 (0.15-1.2) mg/dL AST 15 (0-32) U/L ALT 18 (0-33) U/L Alkaline Phosphatase 53 (35-105) U/L Albumin 3.7 (3.5-5.2) g/dL ABG 07/30/23 23:00 Specimen Type Arterial Sample Site Radial, right ABG pH 7.45 ABG pCO2 38.7 ABG pO2 56.0 L ABG PO2/FiO2 Ratio 0 ABG HCO3 27.1 H ABG Base Excess 3.0 H O2 Delivery Device Nc O2 Liters/Min 4.0 FiO2 36.0 Cardiac Studies: Echocardiogram 05/05/23 Echocardiogram Ultrasound 02/28/20 Sestamibi Stress Test (Cardiology) 03/15/23
--- NOTE | 2023-08-01 12:28 | PC.SOCIAL ---
Pg 2 IMM Explained to pt Pg 2 IMM. No questions voiced. Provided pt a copy. Initialed, dated, & timed a copy & placed in chart.
--- NOTE | 2023-08-01 13:10 | PM.MISC ---
Miscellaneous Note Purpose of Documentation: Update on patient care Note: Upper and lower endoscopy done, no evidence of significant pathology. This regarding GI bleeding. In the upper endoscopy there was gastritis and there was a polyp in the fundus of the stomach. Polyp was removed with biopsy forceps and residual bleeding was noted, two clips were needed to control this bleeding. Lower endoscopy was normal, did not find any significant pathology in the anal margin but there was some induration, couple biopsies were taken to ensure that this does not represent a recurrence. Patient is cleared for discharge from the general surgery standpoint, she should receive PPI twice a day and she can follow-up with me in clinic in 2 weeks. All other management per primary team
--- NOTE | 2023-08-01 13:33 | ANE.PACU2 ---
Inpatient post-anesthesia follow up: Vital signs: Temperature 97.0 F Pulse Rate 88 Respiratory Rate 18 Blood Pressure 124/72 Pulse Oximetry 96 Oxygen Delivery Me thod Nasal Cannula Oxygen Flow Rate 6 Fraction of Inspir ed Oxygen Hydration adequate: Yes Nausea and vomiting: No Mental status: Baseline Additional Comments: no apparent anesthetic complications noted
--- NOTE | 2023-08-01 14:59 | PM.CONSULT ---
Providers/Reason For Consult Consulting Physician/Specialty*: kommana/Nephrology Reason for Consult*: ESRD Attending Physician: Jerson Perez MD Primary Care Provider: Herber Hussein MD History of Present Illness History of Present Illness Bharati Anthony is a 48 year old female with a past medical history of type 2 diabetes mellitus, history of DVT chronically on Eliquis, history of right subclavian steal syndrome, history of left foot diabetic foot infection on Zyvox and HBO therapy, history of end-stage renal disease on dialysis,presented to the emergency department due to abnormal labs patient had labs as outpatient and was found to have low hemoglobin and was sent to the ER. Repeat hemoglobin in the ER has showed 6.5. Patient received blood transfusions. Noted also noted to have black tarry stools and Hemoccult was positive. Patient underwent endoscopy and colonoscopy was placed on IV Protonix. No active bleeding was noted. Patient due for her dialysis today. Denies any complaints currently Review of Systems Narrative: Negative Medications/Allergies Home Medications Medication Instructions Recorded Confirmed Last Taken Type Diabetic Shoes #1 ea 06/19/19 07/30/23 Unknown Rx acetaminophen 325 mg capsule 325 mg PO QID PRN Pain 06/19/19 07/30/23 05/17/20 History blood-glucose meter (OneTouch #1 ea 06/19/19 07/30/23 Unknown History UltraMini kit) citalopram 40 mg tablet 40 mg PO DAILY 06/19/19 07/30/23 01/20/23 History pantoprazole 40 mg tablet,delayed 40 mg PO BID 06/19/19 07/30/23 01/20/23 History release sodium bicarbonate 650 mg tablet 650 mg PO DAILY PRN Dialysis 09/18/19 07/30/23 01/20/23 History apixaban 2.5 mg tablet (Eliquis) 2.5 mg PO BID 12/11/19 07/30/23 01/20/23 History alprazolam 0.25 mg tablet (Xanax) 0.25 mg PO BID PRN Anxiety 04/01/20 07/30/23 01/20/23 History diphenhydramine HCl 25 mg capsule 25 mg PO TID PRN Itching 04/01/20 07/30/23 05/17/20 History (Benadryl) amlodipine 5 mg tablet 5 mg PO DAILY 01/21/23 07/30/23 01/20/23 History hydralazine 25 mg tablet 25 mg PO TID 01/21/23 07/30/23 01/20/23 History melatonin 10 mg capsule 10 mg PO DAILY 01/21/23 07/30/23 Unknown History ondansetron HCl 4 mg tablet 4 mg PO Q8H PRN Nausea 01/21/23 07/30/23 Unknown History ropinirole 0.25 mg tablet 0.25 mg PO BEDTIME 01/21/23 07/30/23 01/20/23 History sevelamer carbonate 800 mg tablet 1,600 mg PO TID 01/21/23 07/30/23 01/20/23 History sitagliptin phosphate 25 mg tablet 25 mg PO DAILY 01/21/23 07/30/23 01/20/23 History (Micaia) vit B,C-folic ac 800 mcg-zinc 12.5 1 tab PO DAILY 01/21/23 07/30/23 01/20/23 History mg-selen-D3 2,000 unit-vit E tablet (RenaPlex-D) promethazine 25 mg tablet 25 mg PO QID PRN Nausea And 05/02/23 07/30/23 Unknown History Vomiting carvedilol 25 mg tablet 25 mg PO DAILY 06/04/23 07/30/23 Unknown History citalopram 20 mg tablet 20 mg PO DAILY 06/04/23 07/30/23 Unknown History difelikefalin 50 mcg/mL 50 mcg IV QMWF 06/04/23 07/30/23 Unknown History intravenous solution (Korsuva) semaglutide 1 mg/dose (4 mg/3 mL) 1 mg SUBCUT Q7D 06/04/23 07/30/23 Unknown History subcutaneous pen injector (Ozempic) albuterol sulfate 90 mcg/actuation 2 inh inhalation Q6H PRN shortness 06/05/23 07/30/23 Unknown Rx aerosol inhaler of breath or wheezing #8.5 grams guaifenesin 600 mg tablet, 1,200 mg (2 x 600 mg) PO BID #30 06/05/23 07/30/23 Unknown Rx extended release 12 hr (Mucinex) tabs prednisone 20 mg tablet 40 mg (2 x 20 mg) PO DAILY #3 tabs 06/05/23 07/30/23 Unknown Rx linezolid 600 mg tablet 600 mg PO BID #28 tabs 07/18/23 07/30/23 Unknown Rx prednisolone acetate 1 % eye 1 drp ophthalmic (eye) QID 07/30/23 07/30/23 Unknown History drops,suspension tramadol 50 mg tablet 50 - 100 mg PO Q6H PRN Pain 07/30/23 07/30/23 Unknown History Allergies Allergy/AdvReac Type Severity Reaction Status Date / Time adhesive tape Allergy Unknown blisters Verified 07/30/23 08:21 Cephalosporins Allergy Unknown unknown Verified 07/30/23 08:21 doxycycline Allergy ADR-Vomitin Verified 07/30/23 08:21 g latex Allergy blisters Verified 07/30/23 08:21 Current Medications Generic Name Dose Route Start Last Admin Trade Name Freq PRN Reason Stop Dose Admin Acetaminophen 650 mg 07/29/23 23:34 07/31/23 17:09 Acetaminophen 325 Mg Tablet PO 650 mg Q6H PRN Administration Mild/Mod Pain Or Temp >/= 101 Albuterol/Ipratropium 3 ml 07/30/23 00:00 07/31/23 04:40 Ipratropium-Albuterol 3 Ml Neb INHALATION 3 ml Q6H PRN Administration SHORTNESS OF BREATH Alprazolam 0.25 mg 07/29/23 23:41 08/01/23 11:44 Alprazolam 0.5 Mg Tablet PO 0.25 mg BID PRN Administration Anxiety Amlodipine Besylate 5 mg 07/30/23 09:00 08/01/23 08:01 Amlodipine 5 Mg Tablet PO 5 mg DAILY BRETT Administration Carvedilol 25 mg 07/30/23 09:00 08/01/23 08:01 Carvedilol 25 Mg Tablet PO 25 mg DAILY BRETT Administration Citalopram Hydrobromide 20 mg 07/30/23 09:00 07/30/23 08:33 Citalopram 20 Mg Tablet PO 20 mg DAILY BRETT Administration Hydralazine HCl 25 mg 07/30/23 09:00 08/01/23 08:01 Hydralazine 25 Mg Tablet PO 25 mg TID BRETT Administration Vancomycin HCl 1,000 mg/ 250 mls @ 250 mls/hr 07/30/23 16:00 07/30/23 19:05 Sodium Chloride IV Infused Q48H BRETT Infusion Insulin Human Lispro 0 unit 07/30/23 08:00 08/01/23 11:03 Insulin Lispro 100 Unit/1 Ml SUBCUT Not Given TIDWM [facility] Protocol Multivitamins 1 each 07/30/23 09:00 08/01/23 08:01 K-Auauujd-Kcyphcc C Tablet PO 1 each DAILY BRETT Administration Non-Formulary Medication 1 drop 07/30/23 17:00 08/01/23 09:09 Moxifloxacin EYE-LEFT Not Given QID BRETT Non-Formulary 1 each 07/31/23 13:00 08/01/23 08:10 Medication EYE-LEFT 1 each Prednisolone 1% Op QID BRETT Administration Susp 5 Ml Btl Ondansetron HCl 4 mg 07/29/23 23:34 08/01/23 09:40 Ondansetron 2 Mg/Ml Sdv 2 Ml IVP 4 mg Q8H PRN Administration vomiting, or N/V if npo Pantoprazole Sodium 40 mg 07/30/23 06:00 08/01/23 06:17 Pantoprazole 40 Mg Sdv IVP 40 mg BID@0600,1800 BRETT Administration Ropinirole HCl 0.25 mg 07/30/23 21:00 07/31/23 20:40 Ropinirole 0.25 Mg Tablet PO 0.25 mg BEDTIME BRETT Administration Sevelamer Carbonate 1,600 mg 07/30/23 08:00 08/01/23 11:26 Sevelamer 800 Mg Tablet PO Not Given TIDWM BRETT Sodium Chloride 1 spray 07/31/23 04:25 07/31/23 05:55 Saline Nasal [place] 44ml Btl NASAL 1 spray PRN PRN Administration DRYNESS Sucralfate 1 gm 07/30/23 07:00 08/01/23 11:03 Sucralfate 1 Gm/10 Ml Oral Liq Udc PO Not Given AC&BEDTIME BRETT PFSH Acute PFSH: Medical History Tachycardia Diabetes Deep vein thrombosis (DVT) during Chronic anticoagulation Squamous cell carcinoma of anal canal Diabetes mellitus End-stage renal disease Surgical History Status post surgery (05/19/20) Removal of peritoneal dialysis catheter Port-A-Cath in place S/P hemodialysis catheter insertion (01/09/20) Removed 11/18/2020 Peritoneal dialysis status H/O colonoscopy H/O hand surgery History of hip surgery History of hysterectomy Family History Other Cancer Diabetes Denies family history of Anesthesia complication Bleeding disorder Social History Smoking and tobacco/nicotine status: current every day tobacco/nicotine user Alcohol intake: never Substance/Drug Use: never Household members: family Marital status: Single Current occupational status: disabled Vitals/I&O/Wt Last Vital Signs Temp 98.1 F 08/01/23 14:11 Pulse 87 08/01/23 14:11 Resp 18 08/01/23 14:11 BP 125/74 08/01/23 14:11 Pulse Ox 96 08/01/23 13:21 O2 Del Method Nasal Cannula 08/01/23 13:21 O2 Flow Rate 6 08/01/23 13:21 07/31/23 08/01/23 08/01/23 22:59 06:59 14:59 Intake Total 480 / 960 Balance 480 / -140 Weight last 48 hrs Weight 77.111 kg Weight 84.878 kg Physical Exam Narrative: Patient is awake, alert no distress HEENT S1-S2 regular rate and rhythm rhythm per report Lungs clear per report No pedal edema Data 08/01/23 02:42 08/01/23 02:42 A&P Assessment and plan (1) ESRD (end stage renal disease) on dialysis: Plan 1. End-stage renal disease: On [facility] schedule as outpatient, hemodialysis today 2. Severe anemia: Status post transfusions, DORINDA with HD 3. History of hypertension: Blood pressure controlled 4. History of diabetes Patient evaluated using audiovisual cart. Time spent 40 minutes Consult Attestations Medical Necessity Statement: per kobi Coding Level of Care Code Acute Code for Chg Fwd Diagnoses ESRD (end stage renal disease) on dialysis N18.6; Z99.2
[2023-08-01] MEDS: hyDRALAzine 25 mg Tablet PO (16:21)
--- NOTE | 2023-08-01 16:34 | P.PN_ITS ---
Subjective 2 Subjective: Hospital course, labs appreciated. Patient to undergo EGD and colonoscopy today. Denies any nausea, vomiting, headache. Hemoglobin has remained stable. Plan for hemodialysis today. Vitals/I&O/Wt Last Vital Signs Temp 97.5 F L 08/01/23 16:00 Pulse 90 08/01/23 16:00 Resp 18 08/01/23 16:00 BP 154/78 08/01/23 16:00 Pulse Ox 97 08/01/23 16:00 O2 Del Method Nasal Cannula 08/01/23 16:00 O2 Flow Rate 6 08/01/23 13:21 Weight last 48 hrs Weight 77.111 kg Weight 84.878 kg Physical Exam 2 Narrative: Accompanied by family. Const: COMMON NORMALS: no acute distress, patient oriented x3 and alert G ENERAL APPEARANCE: cooperative ORIENTATION/CONSCIOUSNESS: Yes awake HENMT: COMMON NORMALS: normocephalic and oropharynx normal HEAD & SCALP: n ormocephalic Eye: COMMON NORMALS: Equal, round and reactive pupils present PUPIL: Yes Equal, round and reactive pupils present OTHER: Improving mild left eye conjunctival hemorrhage after recent eye surgery. Neck/C-Spine: COMMON NORMALS: no JVD Lymph: LYMPHATIC: no lymphadenopathy noted Resp: COMMON NORMALS: normal respiratory effort, No retractions, No use of accessory muscles and clear to auscultation bilaterally AUSCULTATION: clear to auscultation bilaterally and diminished lung sounds on the left in the lower lung [place]man Cardio: COMMON NORMALS: no JVD, regular rate, regular rhythm, S1 normal heart sound present, S2 normal heart sound present and No murmurs present (Cardio) RATE: regular rate RHYTHM: regular rhythm HEART SOUNDS: S1 normal heart sound present and S2 normal heart sound present GI: COMMON NORMALS: Normal to inspection, nondistended, normoactive bowel sounds present, Soft to palpation and non-tender PALPATION: Yes Soft to palpation Extremity: COMMON NORMALS: no joint enlargement, no calf tenderness and no pedal edema NARRATIVE EXTREMITY EXAM: Left foot wrapped chronic wound Right leg thigh, dialysis access site Neuro: COMMON NORMALS: patient oriented x3, CN's II-XII intact bilaterally and moves all extremities SENSORIUM/ORIENTATION: Yes alert Psych: COMMON NORMALS: mental status grossly normal Skin: COMMON NORMALS: no rashes or lesions noted GENERAL SKIN EXAM: no rashes or lesions noted Data 08/01/23 02:42 08/01/23 02:42 A&P Assessment and plan (1) Acute anemia: (2) Chronic anticoagulation: (3) DVT (deep venous thrombosis): (4) GI bleed: Qualifiers: GI bleed type/associated pathology: unspecified gastrointestinal hemorrhage type Qualified Code(s): K92.2 - Gastrointestinal hemorrhage, unspecified (5) Chronic kidney disease with end stage renal failure on dialysis: (6) Squamous cell carcinoma of anal canal: Plan Hypoxia: Most likely in setting of diastolic heart failure because of fluid resuscitation. At baseline end-stage renal disease on hemodialysis. Resolving for now. Plan for repeat hemodialysis today. Fluid has been stopped. Oxygen supplementation keeping saturation over 90%. Acute blood loss anemia: Hemoglobin so far have remained stable. Denies any hematochezia or melena. Appreciate surgical recommendations. Post endoscopy and colonoscopy today. No active bleeding present. Biopsies taken. Continue with IV Protonix twice daily along with Carafate ACHS. Hold off on Eliquis for now. Most likely will need to hold off Eliquis for next 2 to 4 weeks. Patient was also on Celexa which also increases the chances of bleeding especially in patient of end-stage renal disease. Appreciate iron panel and vitamin B12 results. Bipolar disorder: Appreciate psychiatry recommendations. Patient is on citalopram. Citalopram also increases the risk of bleeding. For now we will plan to start Wellbutrin once every 3 days. Patient is agreeable. Will need to continue psychotherapy as an outpatient. Diabetic wound: Has been on linezolid. Discussed with her with risk of current treatment with linezolid with risk of bleeding, for now we are switching to vancomycin. She is agreeable. Most likely will plan to discharge on IV vancomycin with each dialysis. Recent eye surgery: She reports has completed moxifloxacin. Noted mild conjunctival hemorrhage. She states that she continues on prednisolone drops and requested this to be resumed. ? Hypertension: Goal blood pressure less than 140/90 mmHg. Continue with home dose of Coreg, hydralazine. If needed will uptitrate hydralazine as per goal blood pressure. Type 2 diabetes mellitus: Diet controlled. A1c of 5. Hypoglycemia protocol ? Full code ? SCDs for DVT prophylaxis, Lovenox relatively contraindicated given anemia, GI bleed Protonix will be sufficient for PUD prophylaxis. Attestations 2 Medical Necessity Statement*: Requires further hospitalization for management of acute blood loss anemia requiring endoscopy and colonoscopy in a patient with history of end-stage renal disease on hemodialysis, hypoxia in setting of fluid overload from fluid resuscitation Diagnoses Acute anemia D64.9 Chronic anticoagulation Z79.01 DVT (deep venous thrombosis) I82.409 GI bleed K92.2 GI bleed type/associated pathology: unspecified gastrointestinal hemorrhage type Chronic kidney disease with end stage renal failure on dialysis N18.6; Z99.2 Squamous cell carcinoma of anal canal C21.1
[2023-08-01 16:53] LABS: Glucose Point of Care 82 mg/dL (70-110)
--- NOTE | 2023-08-01 17:29 | P.NPUPN_ITS ---
Subjective NPU 2 Subjective: 48-year-old female with end-stage renal disease and unspecified GI bleed. Patient was informed of the necessity to likely discontinue Celexa and try her medication less associated with increasing risk of prolonged bleeding. She reported her mood as okay at this time. She was receiving dialysis and reported no side effects in the absence of her Celexa. Mental Status Exam 2 MSE Comments: Pleasant cooperative female who appears older than her stated age. She appeared somewhat cachectic. Her speech was normal in regards to rate rhythm and prosody. Her mood was described as allright. Her affect was slightly restricted in range and mood incongruent. Her thought process linear logical and goal-directed. Her thought content showed no evidence of homicidal or suicidal ideation. She did not appear to be responding internal stimuli. There was no clear evidence of delusional thinking. Her attention span appeared adequate her insight was fair. Her judgment appeared fair. Her impulse control appeared adequate. Her recent and remote memory were grossly intact. Vitals/I&O/Wt Last Vital Signs Temp 97.5 F L 08/01/23 16:00 Pulse 90 08/01/23 16:00 Resp 18 08/01/23 16:00 BP 154/78 08/01/23 16:00 Pulse Ox 97 08/01/23 16:00 O2 Del Method Nasal Cannula 08/01/23 16:00 O2 Flow Rate 6 08/01/23 13:21 Weight last 48 hrs Weight 77.111 kg Weight 84.878 kg Data NPU 08/01/23 02:42 08/01/23 02:42 A&P Assessment and plan (1) Major depressive disorder, recurrent: Plan 1. Discussed Wellbutrin 100mg every 3 days to target depression secondary to concern reported of excess accumulation of wellbutrin metabolites even with dialysis. Discussed with patient who was agreeable to trial to treat Depression. Psychotherapy to target depression is highly recommended. Attestations NPU 2 Medical Necessity Statement*: NA-no inpatient hospitalization necessary. Coding Level of Care Code Acute Code for Chg Fwd Diagnoses Major depressive disorder, recurrent F33.9
[2023-08-01] MEDS: buPROPion XL (24 HR) 150 mg Tablet PO (17:47)
[2023-08-01] MEDS: vancomycin 1,000 MG in sodium chloride 0.9% 250 ML 250 MG IV (17:54)
[2023-08-01] MEDS: ropinirole 0.25 mg Tablet PO (20:27)
[2023-08-01 21:08] LABS: Glucose Point of Care 134 mg/dL (70-110)
[2023-08-02] VITALS (7 sets, daily range): BP systolic 119–164; BP diastolic 62–78; PULSE 91–100; RESP 16–19; TEMP 36.7–37.2; O2SAT 92–97
[2023-08-02] MEDS: sucralfate 1 gm/10 mL Oral Liq UDC PO ×2 (06:06→11:44)
[2023-08-02] MEDS: pantoprazole 40 mg SDV IVP (06:06)
[2023-08-02 06:20] LABS: Glucose Point of Care 100 mg/dL (70-110)
[2023-08-02 06:29] LABS: Basophils % 0.6 %; Eosinophils # 0.1 10^3/uL (0.0-0.8); Eosinophils % 2.2 %; Hematocrit 28.6 % (36-47); Lymphocytes % 16.2 %; Mean Corpuscular HGB Conc 32.2 g/dL (30-55); Mean Corpuscular Hemoglobin 34.2 pg (27-33); Mean Corpuscular Volume 106.3 fl (85-98); Monocytes # 0.6 10^3/uL (0.2-0.9); Monocytes % 9.2 %; Neutrophils # 4.59 10^3/uL (1.8-7.7); Neutrophils % 71.6 %; Nucleated Red Blood Cells % 0 %; Platelet Count 125 10^3/cmm (157-399); Red Blood Count 2.69 10^6/uL (3.85-5.65); Red Cell Distribution Width 18.2 % (12.1-15.1); White Blood Count 6.41 10^3/uL (3.29-11.43)
[2023-08-02 06:51] LABS: Alanine Aminotransferase 15 U/L (0-33); Alkaline Phosphatase 59 U/L (35-105); Anion Gap 14.5 (5-19); Aspartate Amino Transferase 14 U/L (0-32); Blood Urea Nitrogen 19 mg/dL (6-20); Calcium 9.1 mg/dL (8.5-10.5); Carbon Dioxide 25 mmol/L (22-29); Chloride 103 mmol/L (98-107); Creatinine Clr Calc Pharmacy 17.7185; Globulin 2.7 g/dL (1.3-4.6); Glomerular Filtration Rate 10.9 mL/min (90-130); Glucose 101 mg/dL (65-115); Osmolality Calculated 290 mOsm/kg (285-295); Potassium 3.5 mmol/L (3.5-5.1); Sodium 139 mmol/L (136-145); Total Bilirubin 0.5 mg/dL (0.15-1.2); Total Protein 6.7 g/dL (6.6-8.7)
[2023-08-02] MEDS: b-complex-vitamin c Tablet 1 EACH PO (08:15)
[2023-08-02] MEDS: PREDNISOLONE 1% 1 EACH EYE-LEFT ×2 (08:15→12:29)
[2023-08-02] MEDS: hyDRALAzine 25 mg Tablet PO (08:15)
[2023-08-02] MEDS: carvedilol 25 mg Tablet PO (08:15)
[2023-08-02] MEDS: amlodipine 5 mg Tablet 10 MG PO (08:15)
[2023-08-02] MEDS: sevelamer 800 mg Tablet 1600 MG PO ×2 (08:15→11:44)
--- NOTE | 2023-08-02 10:06 | PC.CHAP ---
Pastoral Care Encounter/Spiritual Assessment Type of Contact [] Declined pony ride attendant visit [] Patient/Family/Request visit [] Outpatient visit [] Follow-up visit [] Physician referral [] Code/Alert [x] Routine visit [] Staff referral [] Actively dying [] Patient sleeping [] Family support [] [] Out of room [] Palliative care [] [] Receiving care in room [] Pre-surgical visit [] Trauma [] Long length of stay [] ICU visit [] Other: Relational/Emotional Strength [x] Patient feels connected with others/family/visitors/staff [] Distress [] Loneliness/isolation [] Abandonment Spirituality of Patient [x] Person of Elsie [] Attends Pentecostalism of their Elsie [x] Believes in Prayer [] Reads Bible or Rastafari materials [] There are Spiritual issues to be addressed Project Portfolio Analyst Interventions [x] Prayer [x] Active listening [x] Non-anxious presence [x] Spiritual/emotional support [] Crisis/trauma care [] Spiritual counseling [] Bereavement support [] Provided bereavement packet [] Provided Bible/devotional materials [] Provided toy/stuffed animal, coloring book to patient or family member [] Provided Communion [] Anointing/Dufur [] Salvation [x] Completed spiritual assessment [] Other: Impact on Illness or Injury [] Angry [] Fearful [] Anxious [] Often cries [] Exhaustion [] Unable to work [] Unable to attend taoism [] Unable to walk/stand [] Unable to read [] Unable to drive [] Unable to eat/drink [] Unable to sleep [] Unable to be with family [] Patient intubated [] Other: Summary Time spent with patient 5 min
[2023-08-02 10:47] LABS: Glucose Point of Care 200 mg/dL (70-110)
--- NOTE | 2023-08-02 11:05 | P.DS_ITS ---
Discharge Providers Date of Admission: 07/29/23 22:52 Date of Discharge: August 02, 2023 Attending Provider at Admission: Chiki Garcia MD Attending Provider at Discharge: Jerson Perez MD Consults: Surgery: Dr. Dillon Calhoun [facility] nephrology Primary Care Provider: Herber Hussein MD Diagnoses at Discharge Discharge Diagnosis (1) ESRD (end stage renal disease) on dialysis: Status: Acute (2) Major depressive disorder, recurrent: Status: Acute Reason for Visit Reason for Visit: sob, weak, fatigue Brief History: History as per HPI: Bharati Anthony is a 48 year old female with a past medical history of type 2 diabetes mellitus, not on insulin, history of DVT chronically on Eliquis, history of right subclavian steal syndrome, history of left foot diabetic foot infection on Zyvox and HBO therapy, history of end-stage renal disease on dialysis, history of complications of cataract surgery in left eye, who presents [facility] from dialysis center due to abnormal labs. Patient tells me that she had a history of anemia a few years ago, she was admitted in [place] for almost a month, she thinks she had some scoping but she does not remember, but she received transfusion almost on a daily basis during that hospitalization. 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 Denies any lightheadedness, dizziness, nausea, vomiting Hospital Course Hospital Course Patient was admitted to the hospital further evaluation and management of acute anemia requiring blood transfusion. Surgery was consulted and she underwent EGD and colonoscopy on 07/31 on which she was found to have a gastric polyp which was biopsied and sent for pathology along with colonoscopy showing few small sized uncomplicated external hemorrhoids without any evidence of bleeding. She required Yant of blood transfusion after which her hemoglobin remained stable. It is believed her acute anemia is in setting of higher chances of bleeding while being on Eliquis along with Celexa in setting of his end-stage renal disease on hemodialysis. Psychiatry was consulted and her Celexa was switched over to Wellbutrin 150 mg every third day which would be safer and carries less bleeding risk. She has been advised to continue taking Protonix twice daily for next 4 weeks followed by once daily along with Carafate 3 times a day for next 4 weeks. She is to withhold her Eliquis till 08/18. Her Wellbutrin has been started as above while Celexa has been discontinued. Given concerns for anemia on admission linezolid has also been discontinued and switched over to IV vancomycin 1 g with each dialysis session to complete the course of antibiotics as prescribed to her by her wound care team. Antibiotics and lab work will be followed up as before. Physical Exam Narrative: Accompanied by family. Const: COMMON NORMALS: no acute distress, patient oriented x3 and alert GENERAL APPEARANCE: cooperative ORIENTATION/CONSCIOUSNESS: Yes awake HENMT: COMMON NORMALS: normocephalic and oropharynx normal HEAD & SCALP: normocephalic Eye: COMMON NORMALS: Equal, round and reactive pupils present PUPIL: Yes Equal, round and reactive pupils present OTHER: Improving mild left eye conjunctival hemorrhage after recent eye surgery. Neck/C-Spine: COMMON NORMALS: no JVD Lymph: LYMPHATIC: no lymphadenopathy noted Resp: COMMON NORMALS: normal respiratory effort, No retractions, No use of accessory muscles and clear to auscultation bilaterally AUSCULTATION: clear to auscultation bilaterally and diminished lung sounds on the left in the lower lung eastman Cardio: COMMON NORMALS: no JVD, regular rate, regular rhythm, S1 normal heart sound present, S2 normal heart sound present and No murmurs present (Cardio) RATE: regular rate RHYTHM: regular rhythm HEART SOUNDS: S1 normal heart sound present and S2 normal heart sound present GI: COMMON NORMALS: Normal to inspection, nondistended, normoactive bowel sounds present, Soft to palpation and non-tender PALPATION: Yes Soft to palpation Extremity: COMMON NORMALS: no joint enlargement, no calf tenderness and no pedal edema NARRATIVE EXTREMITY EXAM: Left foot wrapped chronic wound Right leg thigh, dialysis access site Neuro: COMMON NORMALS: patient oriented x3, CN's II-XII intact bilaterally and moves all extremities SENSORIUM/ORIENTATION: Yes alert Psych: COMMON NORMALS: mental status grossly normal Skin: COMMON NORMALS: no rashes or lesions noted GENERAL SKIN EXAM: no rashes or lesions noted Discharge Data Studies Completed and Pending Completed Studies During Hospitalization Category Date Time Status XR chest 1V portable [id number] Routine Exams 07/30/23 22:38 Completed XR chest 1V portable [id number] Urgent Exams 07/29/23 22:19 Completed Pending at discharge Category Date Time Status Urinalysis Stat Lab 07/29/23 22:19 Uncollected Vitamin K Routine Lab 07/30/23 05:33 Received Pathology: Surgical [PTH] Routine Pth 08/01/23 13:01 Received Radiology Impressions Chest X-Ray 07/30/23 22:38 IMPRESSION: 1. Cardiomegaly. 2. Pulmonary vascular congestion and interstitial edema. 3. Left-sided Port-A-Cath. Laboratory Results WBC 6.41 10^3/uL (3.29-11.43) 08/02/23 06:10 RBC 2.69 10^6/uL (3.85-5.65) L 08/02/23 06:10 Hgb 9.20 g/dL (11.27-16.99) L 08/02/23 06:10 Hct 28.6 % (36-47) L 08/02/23 06:10 MCV 106.3 fl (85-98) H 08/02/23 06:10 MCH 34.2 pg (27-33) H 08/02/23 06:10 MCHC 32.2 g/dL (30-55) 08/02/23 06:10 RDW 18.2 % (12.1-15.1) H 08/02/23 06:10 Plt Count 125 10^3/cmm (157-399) L 08/02/23 06:10 MPV 9.0 fL (7.4-10.4) 08/02/23 06:10 Neut % (Auto) 71.6 % 08/02/23 06:10 Lymph % (Auto) 16.2 % 08/02/23 06:10 [facility] % (Auto) 9.2 % 08/02/23 06:10 Eos % (Auto) 2.2 % 08/02/23 06:10 Baso % (Auto) 0.6 % 08/02/23 06:10 Neut # (Auto) 4.59 10^3/uL (1.8-7.7) 08/02/23 06:10 Lymph # (Auto) 1.0 10^3/uL (0.8-4.8) 08/02/23 06:10 [facility] # (Auto) 0.6 10^3/uL (0.2-0.9) 08/02/23 06:10 Eos # (Auto) 0.1 10^3/uL (0.0-0.8) 08/02/23 06:10 Baso # (Auto) 0.0 10^3/uL (0.0-0.1) 08/02/23 06:10 Nucleated RBC % (auto) 0 % 08/02/23 06:10 Nucleated RBCs # 0.0 /100WBC 08/02/23 06:10 PT 15.90 SECONDS (12.1-14.9) H 07/29/23 20:45 INR 1.23 (0.8-1.2) H 07/29/23 20:45 APTT 35.8 SECONDS (23.9-36.7) 07/29/23 20:45 Specimen Type Arterial 07/30/23 23:00 Sample Site Radial, right 07/30/23 23:00 ABG pH 7.45 (7.35-7.45) 07/30/23 23:00 ABG pCO2 38.7 mmHg (35-45) 07/30/23 23:00 ABG pO2 56.0 mmHg (80.0-100.0) L 07/30/23 23:00 ABG PO2/FiO2 Ratio 0 07/30/23 23:00 ABG HCO3 27.1 mmol/L (22-26) H 07/30/23 23:00 ABG Base Excess 3.0 mmol/L (-2.0-2.0) H 07/30/23 23:00 Benjamin Test Pos 07/30/23 23:00 Hematocrit 26.8 % (37-47) L 07/30/23 23:00 O2 Delivery Device Nc 07/30/23 23:00 O2 Liters/Min 4.0 % 07/30/23 23:00 FiO2 36.0 % 07/30/23 23:00 Cinnamon Grinder ID Humerageoff 07/30/23 23:00 Sodium 139 mmol/L (136-145) 08/02/23 06:10 Potassium 3.5 mmol/L (3.5-5.1) 08/02/23 06:10 Chloride 103 mmol/L (98-107) 08/02/23 06:10 Carbon Dioxide 25 mmol/L (22-29) 08/02/23 06:10 Anion Gap 14.5 (5-19) 08/02/23 06:10 BUN 19 mg/dL (6-20) 08/02/23 06:10 Creatinine 4.3 mg/dL (0.5-0.9) H 08/02/23 06:10 GFR Calculation 10.9 mL/min (90-130) L 08/02/23 06:10 Glucose 101 mg/dL (65-115) 08/02/23 06:10 POC Glucose 200 mg/dL (70-110) H 08/02/23 10:44 Estimat Average Glucose 97 07/29/23 20:45 Hemoglobin A1c 5.0 % (4.0-6.0) 07/29/23 20:45 Calculated Osmolality 290 mOsm/kg (285-295) 08/02/23 06:10 Lactic Acid 2.2 mmol/L (0.5-2.2) 07/29/23 22:51 Lactic Acid (Sepsis) 0.9 mmol/L (0.5-2.2) 07/30/23 02:49 Calcium 9.1 mg/dL (8.5-10.5) 08/02/23 06:10 Iron 153 ug/dL (37-145) H 07/29/23 22:51 TIBC 184 mcg/dl 07/29/23 22:51 % Saturation 83.1 % (20-50) H 07/29/23 22:51 Unsat Iron Binding 31 ug/dL (112-347) L 07/29/23 22:51 Ferritin 902 ng/mL (15-150) H 07/29/23 22:51 Total Bilirubin 0.5 mg/dL (0.15-1.2) 08/02/23 06:10 AST 14 U/L (0-32) 08/02/23 06:10 ALT 15 U/L (0-33) 08/02/23 06:10 Alkaline Phosphatase 59 U/L (35-105) 08/02/23 06:10 NT-Pro-B Natriuret Pep 39732 pg/mL (0-125) H 07/30/23 00:23 Total Protein 6.7 g/dL (6.6-8.7) 08/02/23 06:10 Albumin 4.0 g/dL (3.5-5.2) 08/02/23 06:10 Globulin 2.7 g/dL (1.3-4.6) 08/02/23 06:10 Vitamin B12 586 pg/mL (232-1245) 07/29/23 22:51 Folate > 20.0 ng/mL (4.8-37.3) 07/29/23 22:51 TSH 2.26 uIU/mL (0.27-4.20) 07/29/23 20:45 Blood Type A Positive 07/29/23 20:45 Rho(D) Type Rh positive 07/29/23 20:45 Antibody Screen Negative 07/29/23 20:45 Crossmatch See Detail 07/29/23 20:45 Vitals Last Vital Signs Temp 98.5 F 08/02/23 07:47 Pulse 92 08/02/23 08:11 Resp 16 08/02/23 08:11 BP 119/62 08/02/23 07:47 Pulse Ox 97 08/02/23 08:11 O2 Del Method Room Air 08/02/23 08:11 O2 Flow Rate 6 08/01/23 13:21 Discharge Plan Discharge Patient Disposition: Home Condition: Stable Prescriptions: New sucralfate 100 mg/mL Suspension 1 g PO AC&BEDTIME 28 Days Qty: 1000 0RF bupropion HCl 150 mg Tablet Extended Release 24 Hr 150 mg PO Q72H 30 Days Qty: 10 0RF Protonix 40 mg tablet,delayed release (DR/EC) 40 mg PO DAILY 30 Days Qty: 60 0RF Rx Instructions: Twice daily for next 4 weeks followed by once daily Continued alprazolam [Xanax] 0.25 mg tablet 0.25 mg PO BID PRN (Reason: Anxiety) diphenhydramine HCl [Benadryl] 25 mg capsule 25 mg PO TID PRN (Reason: Itching) acetaminophen 325 mg capsule 325 mg PO QID PRN (Reason: Pain) pantoprazole 40 mg tablet,delayed release (DR/EC) 40 mg PO BID (DME) blood-glucose meter [ReelBigTouch UltraMini] Kit See Rx Instructions .ROUTE .MEDSUPPLY Qty: 1 Rx Instructions: As directed (DME) Diabetic Shoes Qty: 1 0RF Rx Instructions: As directed sodium bicarbonate 650 mg tablet 650 mg PO DAILY PRN (Reason: Dialysis) promethazine 25 mg tablet 25 mg PO QID PRN (Reason: Nausea And Vomiting) ondansetron HCl 4 mg Tablet 4 mg PO Q8H PRN (Reason: Nausea) hydralazine 25 mg tablet 25 mg PO TID ropinirole 0.25 mg Tablet 0.25 mg PO BEDTIME Januvia 25 mg tablet 25 mg PO DAILY sevelamer carbonate 800 mg tablet 1,600 mg PO TID melatonin 10 mg Capsule 10 mg PO DAILY RenaPlex-D 800 mcg-12.5 mg -2,000 unit Tablet 1 tab PO DAILY carvedilol 25 mg tablet 25 mg PO DAILY Ozempic 1 mg/dose (4 mg/3 mL) pen injector 1 mg SUBCUT Q7D Rx Instructions: on tuesday Korsuva 50 mcg/mL Solution 50 mcg IV QMWF guaifenesin [Mucinex] 600 mg Tablet Extended Release 12hr 1,200 mg PO BID Qty: 30 0RF albuterol sulfate 90 mcg/actuation HFA aerosol inhaler 2 inh inhalation Q6H PRN (Reason: shortness of breath or wheezing) Qty: 8.5 0RF tramadol 50 mg tablet 50 - 100 mg PO Q6H PRN (Reason: Pain) prednisolone acetate 1 % drops,suspension 1 drp ophthalmic (eye) QID Rx Instructions: left eye Changed amlodipine 5 mg tablet 10 mg PO DAILY Qty: 60 0RF Held Eliquis 2.5 mg Tablet 2.5 mg PO BID Hold Instructions: Resume on 08/19/23. Discontinued citalopram 40 mg tablet 40 mg PO DAILY linezolid 600 mg tablet 600 mg PO BID Qty: 28 2RF citalopram 20 mg tablet 20 mg PO DAILY prednisone 20 mg Tablet 40 mg PO DAILY Qty: 3 0RF Discharge Orders: Discharge Order (Routine); Ordered 08/02/23 Ordered By: Jerson Perez Referrals: [facility] [Other] (You will get IV Vancomycin with your dialysis appointments, for 2 weeks. ) Herber Hussein MD [Primary Care Provider] - 08/17/23 2:45 pm Discharge Diet: Usual diet Discharge Activity: Resume usual activity and Increase activity as tolerated Patient Instructions: Anemia, Bupropion (By mouth), Sucralfate (By mouth), Pantoprazole (By mouth), Gastrointestinal Bleeding (DC), GI Discharge Instructions, Opioid Safety Activity Restrictions/Additional Instructions: Linezolid has been discontinued.?Take vancomycin 1 g daily with each session of dialysis after dialysis for next 2 weeks. Labs will be followed up with the provider like before. Citalopram has been stopped because of high chances of bleeding while being on the medication. Instead has been changed to Wellbutrin 150 mg every third day. Eliquis to be on hold till 08/18. Take Protonix twice daily for next 4 weeks followed by once daily. Take Carafate 3 times a day for next 4 weeks. Dose of amlodipine has been increased to 10 mg daily. He should have a repeat hemoglobin checked before restarting Eliquis and after 1 week of being on Eliquis. Follow-up with a primary care provider within next 2 weeks. Please discuss with your primary care provider about decreasing the dose of Ozempic given tightly controlled blood sugars with an A1c of 5. Discharge Attestations Time Spent in Discharge Care*: greater than 30 min Specific Discharge Activities: educating patient, discussing with pcp/other providers, discussing with case making machine operator/social workers/dc planners, documenting/other paperwork and evaluating patient/reviewing data Status at Discharge: Cognitive status at discharge: cognitively intact , Behavioral status at discharge: cooperative , Functional status at discharge: independent ambulation , Overall status at discharge: patient is back to baseline Quality Metrics Clinical Quality Measures [ No reported AMI, CVA or VTE this stay] Coding Level of Care Code 08619 Total time (in minutes) for Discharge: 70 Diagnoses ESRD (end stage renal disease) on dialysis N18.6; Z99.2 Major depressive disorder, recurrent F33.9
[2023-08-02] MEDS: insulin lispro 100 unit/1 mL SUBCUT (11:44)
--- NOTE | 2023-08-02 12:35 | PC.NURSE ---
Discharge instructions given to pt and her mother. NO questions or concerns at this time. To private vehicle via wheelchair with all belongings.
--- NOTE | 2023-08-02 12:53 | PC.NURSE ---
Pt complains of some nausea. Pt a little diaphoretic. Blood sugar 68 and dropping. 2 orange juices consumed at this time. BP 139/66. Denies pain.
[2023-08-02 12:54] LABS: Glucose Point of Care 68 mg/dL (70-110)
--- NOTE | 2023-08-02 13:10 | PC.NURSE ---
Blood sugar 64. Pt consumes one apple juice followed by peanut butter and daniel crackers.
--- NOTE | 2023-08-02 13:20 | PC.NURSE ---
Blood sugar now 78 and steady and pt reports relief of symptoms.
[2023-08-02 13:28] LABS: Glucose Point of Care 64 mg/dL (70-110)
[2023-08-02 13:28] LABS: Glucose Point of Care 78 mg/dL (70-110)
--- NOTE | 2023-08-02 13:34 | PC.NURSE ---
Since symptoms resolved, pt now out to private vehicle with all belongings via wheelchair
--- NOTE | 2023-08-02 21:15 | P.PN_ITS ---
Subjective 2 Subjective: no new c/o Medications: Reviewed: Yes Vitals/I&O/Wt Last Vital Signs Temp 98.9 F 08/02/23 12:35 Pulse 92 08/02/23 12:35 Resp 16 08/02/23 12:35 BP 128/66 08/02/23 12:35 Pulse Ox 93 08/02/23 12:35 O2 Del Method Room Air 08/02/23 11:35 O2 Flow Rate 6 08/01/23 13:21 08/02/23 08/02/23 08/02/23 06:59 14:59 22:59 Intake Total 150 / 1040 240 / 240 Balance 150 / -1760 240 / 240 Weight last 48 hrs Weight 78 kg Weight 78 kg Weight 77.111 kg Physical Exam 2 Narrative: Patient is awake, alert no distress HEENT S1-S2 regular rate and rhythm rhythm per report Lungs clear per report No pedal edema Data 08/02/23 06:10 08/02/23 06:10 A&P Assessment and plan (1) ESRD (end stage renal disease) on dialysis: Plan 1. End-stage renal disease: On [facility] schedule as outpatient, hemodialysis yesterday 2. Severe anemia: Status post transfusions, DORINDA with HD 3. History of hypertension: Blood pressure controlled 4. History of diabetes Patient evaluated using audiovisual cart. Time spent 40 minutes Attestations 2 Medical Necessity Statement*: per kobi Coding Level of Care Code Acute Code for Chg Fwd Diagnoses ESRD (end stage renal disease) on dialysis N18.6; Z99.2
[2023-08-06 07:30] LABS: Vitamin K 85 pg/mL (130-1500)
== END 2023-08-02 13:35 | disposition home or self-care (01) | DRG 377 ==
LOC: ER 22:50 → MEDSURG 23:03
PROVIDERS: Emergency Medicine; Internal Medicine; Surgery; Admitting Provider Family Medicine; Emergency Provider Physician Assistant; PCP Family Medicine; Visit Provider Student in an Organized Health Care Education/Training Program
PROC: 0DJ08ZZ Inspection of Upper Intestinal Tract, Via Natural or Artificial Opening Endoscopic (ICD-10-PCS; CPT 43235; principal; 2023-08-01 13:30)
PROC: 0DJD8ZZ Inspection of Lower Intestinal Tract, Via Natural or Artificial Opening Endoscopic (ICD-10-PCS; CPT 45378; 2023-08-01 13:30)
DX: K92.2 Gastrointestinal hemorrhage, unspecified (principal); N18.6 End stage renal disease; D62 Acute posthemorrhagic anemia; F33.9 Major depressive disorder, recurrent, unspecified; I13.2 Hypertensive heart and chronic kidney disease with heart failure and with stage 5 chronic kidney disease, or end stage renal disease; Z99.2 Dependence on renal dialysis; E11.22 Type 2 diabetes mellitus with diabetic chronic kidney disease; Z79.85 Long-term (current) use of injectable non-insulin antidiabetic drugs; Z79.84 Long term (current) use of oral hypoglycemic drugs; Z72.0 Tobacco use; K29.70 Gastritis, unspecified, without bleeding; D13.1 Benign neoplasm of stomach; I50.9 Heart failure, unspecified; I25.10 Atherosclerotic heart disease of native coronary artery without angina pectoris; Z79.01 Long term (current) use of anticoagulants; Z86.718 Personal history of other venous thrombosis and embolism; Z85.048 Personal history of other malignant neoplasm of rectum, rectosigmoid junction, and anus; E11.621 Type 2 diabetes mellitus with foot ulcer; L97.529 Non-pressure chronic ulcer of other part of left foot with unspecified severity
CPT/HCPCS: 36415; 36416; 36430; 36600; 43239; 45380; 71045; 80048; 80053; 82607; 82728; 82746; 82803; 82962; 83036; 83540; 83550; 83605; 83880; 84443; 84597; 85025; 85610; 85730; 86850; 86900; 86920; 88305; 90935; 94640; 94664; 96372; 99212; 99285; C9113; J1815; J1940; J2405; J2704; J3370; J7030; J7050; P9040; Q3014

== ENCOUNTER → 2023-08-04 09:19 | Outpatient (BNVA) | payer MEDICARE, MEDICAID, SELFPAY | PROVIDERS: PCP Family Medicine; Visit Provider Thoracic Surgery (Cardiothoracic Vascular Surgery) | DX: E11.52 Type 2 diabetes mellitus with diabetic peripheral angiopathy with gangrene (principal); E11.621 Type 2 diabetes mellitus with foot ulcer; L97.521 Non-pressure chronic ulcer of other part of left foot limited to breakdown of skin; M86.172 Other acute osteomyelitis, left ankle and foot | CPT/HCPCS: G0277 ==

== ENCOUNTER → 2023-08-08 11:35 | Outpatient (BNVA) | payer MEDICARE, MEDICAID, SELFPAY | PROVIDERS: PCP Family Medicine; Visit Provider Nurse Practitioner Family | DX: E11.52 Type 2 diabetes mellitus with diabetic peripheral angiopathy with gangrene (principal); E11.621 Type 2 diabetes mellitus with foot ulcer; L97.521 Non-pressure chronic ulcer of other part of left foot limited to breakdown of skin; M86.171 Other acute osteomyelitis, right ankle and foot | CPT/HCPCS: 11042 ==

== ENCOUNTER → 2023-08-22 12:54 | Outpatient (BNVA) | payer MEDICARE, MEDICAID, SELFPAY | PROVIDERS: PCP Family Medicine; Visit Provider Nurse Practitioner Family | DX: Z09 Encounter for follow-up examination after completed treatment for conditions other than malignant neoplasm (principal); Z87.2 Personal history of diseases of the skin and subcutaneous tissue | CPT/HCPCS: 99212 ==

== ENCOUNTER → 2023-09-05 10:13 | Outpatient (BNVA) | payer MEDICARE, MEDICAID, SELFPAY | PROVIDERS: PCP Family Medicine; Visit Provider Nurse Practitioner Family | DX: Z09 Encounter for follow-up examination after completed treatment for conditions other than malignant neoplasm (principal); Z87.2 Personal history of diseases of the skin and subcutaneous tissue | CPT/HCPCS: 99212 ==

== ENCOUNTER → 2024-01-26 09:26 | Outpatient (BNVA) | payer MEDICARE, MEDICAID, SELFPAY | PROVIDERS: PCP Family Medicine; Visit Provider Thoracic Surgery (Cardiothoracic Vascular Surgery) | DX: E11.52 Type 2 diabetes mellitus with diabetic peripheral angiopathy with gangrene (principal); E11.621 Type 2 diabetes mellitus with foot ulcer; L97.522 Non-pressure chronic ulcer of other part of left foot with fat layer exposed | CPT/HCPCS: 97597; 99213 ==

== ENCOUNTER 2024-02-02 13:38 | Outpatient (CLI) | payer MEDICARE, MEDICAID, SELFPAY ==
--- NOTE | 2024-02-02 13:43 | XR_ITS ---
WS: [id number] Right foot, 3 views, 02/02/2024 Clinical Data: R/O OSTEO/ DIABETIC FOOT ULCER Comparison: Right foot, 06/11/2022 Findings: The right fifth toe including the distal half of the right fifth metatarsal have been resected. There are degenerative changes and fragmentation of the right great toe proximal phalanx. The right first MTP joint is narrow. There is sclerosis of the head of the right second metatarsal unchanged. There is slight periosteal new bone formation of the second and third metatarsals also unchanged. The cortex of the heads of the right second and right third metatarsals shows loss of bone density. XR/XR foot RT min 3V* [id number] Impression: 1. Resection of right fifth toe and distal half of the right fifth metatarsal. 2. Fragmentation of the right great toe proximal phalanx unchanged. 3. Sclerosis of the head of the right second metatarsal and loss of cortical joleen ne of the right second and third metatarsal heads noted.
== END 2024-02-02 13:39 | disposition home or self-care (01) ==
LOC: RAD 13:41
PROVIDERS: PCP Family Medicine; Visit Provider Thoracic Surgery (Cardiothoracic Vascular Surgery)
DX: E11.9 Type 2 diabetes mellitus without complications (principal); Z89.421 Acquired absence of other right toe(s); E11.52 Type 2 diabetes mellitus with diabetic peripheral angiopathy with gangrene; E11.621 Type 2 diabetes mellitus with foot ulcer; L97.512 Non-pressure chronic ulcer of other part of right foot with fat layer exposed
CPT/HCPCS: 73630; 97597; A6021; A6213

== ENCOUNTER → 2024-02-13 10:45 | Outpatient (BNVA) | payer MEDICARE, MEDICAID, SELFPAY | PROVIDERS: PCP Family Medicine; Visit Provider Thoracic Surgery (Cardiothoracic Vascular Surgery) | DX: E11.52 Type 2 diabetes mellitus with diabetic peripheral angiopathy with gangrene (principal); E11.621 Type 2 diabetes mellitus with foot ulcer; L97.511 Non-pressure chronic ulcer of other part of right foot limited to breakdown of skin | CPT/HCPCS: 11042 ==

== ENCOUNTER → 2024-02-20 10:26 | Outpatient (BNVA) | payer MEDICARE, MEDICAID, SELFPAY | PROVIDERS: PCP Family Medicine; Visit Provider Thoracic Surgery (Cardiothoracic Vascular Surgery) | DX: E11.52 Type 2 diabetes mellitus with diabetic peripheral angiopathy with gangrene (principal); E11.621 Type 2 diabetes mellitus with foot ulcer; L97.512 Non-pressure chronic ulcer of other part of right foot with fat layer exposed | CPT/HCPCS: 11042 ==

== ENCOUNTER → 2024-02-21 10:00 | Outpatient (BNVA) | payer MEDICARE, MEDICAID, SELFPAY | PROVIDERS: PCP Family Medicine; Visit Provider Nurse Practitioner Family | DX: R07.9 Chest pain, unspecified (principal); I20.0 Unstable angina; I10 Essential (primary) hypertension; F17.200 Nicotine dependence, unspecified, uncomplicated; Z86.718 Personal history of other venous thrombosis and embolism; R00.0 Tachycardia, unspecified; R94.31 Abnormal electrocardiogram [ECG] [EKG] | CPT/HCPCS: 93005; 99214 ==

== ENCOUNTER → 2024-02-27 10:35 | Outpatient (BNVA) | payer MEDICARE, MEDICAID, SELFPAY | PROVIDERS: PCP Family Medicine; Visit Provider Thoracic Surgery (Cardiothoracic Vascular Surgery) | DX: E11.52 Type 2 diabetes mellitus with diabetic peripheral angiopathy with gangrene (principal); E11.621 Type 2 diabetes mellitus with foot ulcer; L97.511 Non-pressure chronic ulcer of other part of right foot limited to breakdown of skin | CPT/HCPCS: 97597 ==

== ENCOUNTER 2024-03-05 11:12 | Outpatient (CLI) | payer MEDICARE, MEDICAID, SELFPAY ==
--- NOTE | 2024-03-05 11:16 | XRR_ITS ---
PROCEDURE INFORMATION: Exam: XR Right Foot Exam date and time: 03/05/2024 11:22 AM Age: 48 years old Clinical indication: Injury or trauma; Blunt trauma; Right; Injury date: 3 days ago; Injury details: Days stubbed foot, HX of diabetic neuropathy; Prior surgery; Surgery date: 6+ months; Surgery type: Amputation of 5th digit; Additional info: R/O 4th toe fracture TECHNIQUE: Imaging protocol: Radiologic exam of the right foot. Views: 3 or more views. COMPARISON: CR XR foot RT min 3V* [id number] 02/02/2024 2:07 PM FINDINGS: Bones/joints: Partial amputation of the 5th metatarsal shaft and digit. Similar fragmentation at the level of the 1st MTP joint. And sclerosis at the right 2nd metatarsal head. Similar decreased bone density involving the 2nd and 3rd metatarsal heads. Degenerative changes of the proximal hindfoot. No acute fracture. No dislocation. Soft tissues: Normal. XR/XR foot RT min 3V* [id number] IMPRESSION: 1. Stable postsurgical changes status post 5th right metatarsal and digit resection. 2. Fragmentation of the right great toe and proximal phalanx. 3. Osseous demineralization of the 2nd and 3rd metatarsal heads as seen previously. 4. Degenerative changes of the right foot. 5. No acute fracture or dislocation.
== END 2024-03-05 11:13 | disposition home or self-care (01) ==
LOC: RAD 11:15
PROVIDERS: PCP Family Medicine; Visit Provider Thoracic Surgery (Cardiothoracic Vascular Surgery)
DX: L97.512 Non-pressure chronic ulcer of other part of right foot with fat layer exposed (principal); Z89.421 Acquired absence of other right toe(s); S90.934A Unspecified superficial injury of right lesser toe(s), initial encounter; W22.8XXA Striking against or struck by other objects, initial encounter; M85.871 Other specified disorders of bone density and structure, right ankle and foot; M87.877 Other osteonecrosis, right toe(s); E11.52 Type 2 diabetes mellitus with diabetic peripheral angiopathy with gangrene; E11.621 Type 2 diabetes mellitus with foot ulcer; L97.511 Non-pressure chronic ulcer of other part of right foot limited to breakdown of skin
CPT/HCPCS: 11042; 73630; 87070; 87176; 87205

== ENCOUNTER 2024-03-08 10:13 | Outpatient (CLI) | payer MEDICARE, MEDICAID, SELFPAY ==
--- NOTE | 2024-03-08 | ECG_ITS ---
[facility] Test Date: 2024-03-08 Pat Name: Bharati Anthony Department: Room: Gender: Female Casino Change Attendant: : 1975 Requested By: Meron Klein Order Number: [id number] Dung MD: Hector Moe M.D. Interpretive Statements Lung unchanged pre/post procedure; Intraprocedure shortess of breath; Symptoms resoled by discharge PROCEDURE: At the baseline, the EKG revealed normal sinus rhythm with a normal ST Ts.. The baseline heart was 98 bpm with a blood pressue of 146/72 mm of Hg Lexiscan was infused over a period of 20 seconds. A total of 0.4 milligrams of Lexiscan was infused. The stress phase was continued for a total of 5 minutes. Heart rate at the end of the stress phase was 108 bpm with a blood pressure 142/80 mm of Hg. The EKG at the peak infusion revealed diffuse nonspecific ST changes.. Sestamibi was injected 20 seconds after the Lexiscan infusion. Heart rate at the end of the recovery phase was 107 bpm with a blood pressure of 146/74 mm of Hg. CONCLUSION: 1. Nonspecific ST changes with the LexiScan infusion 2. No LexiScan induced chest pain or cardiac arrhythmia 3. Normal blood pressure and heart rate response 4. Sestamibi/sestamibi perfusion scan pending; see separate report. Electronically Signed On 03-09-2024 13:09:42 [employer]RAFTER [employer]UM[employer] by Hector Moe M.D. [email or web address]
--- NOTE | 2024-03-08 10:33 | NMCV_ITS ---
NM miki perf SPECT r/s* [id number] Bharati Anthony Age: 48 Gender: F : 1975 Exam Date: 03/08/2024 11:14 Ordering Phys: Meron Klein Technologist: ANTHONY Reid Exam Location: [facility] Indications: cp STRESS TEST Please see separate stress test report in [facility] for full findings IMAGE PROTOCOL Rest/Stress 1 Lexiscan Day Radiopharmaceutical Dose (mCi) Administration Site Administered by Rest: Tc-99m 11 IV Rose Kei, UNDERWEAR WELTER Sestamibi Stress:Tc-99m 33 IV Rose Kei, UNDERWEAR WELTER Sestamibi Rest: 45 Discovery 630 Stress: 30 Discovery 630 0.4mg Lexiscan. Images obtained in supine and prone position. SPECT RESULTS Technical Quality: Good Raw Data Analysis: Normal Image Corrections: No attenuation or motion correction applied Summed Stress Score: 10 Summed Rest Score: 6 Summed Difference Score: 6 PERFUSION FINDINGS Moderate to large area of minimal to moderately decreased tracer uptake involving the basal and mid inferolateral, mid anterolateral, mid and apical inferior, apical anterior and LV apex. Some reversibility was noted in these regions, compared with the supine imaging. However with the prone imaging, there was no significant reversibility. FUNCTIONAL RESULTS (calculated via Gated SPECT) Stress Image LV EF (%): 45 Stress EDV (mL):150 TID: 1.02 Stress ESV (mL):82 FUNCTIONAL FINDINGS: Segmental wall motion analysis revealed mild diffuse hypokinesia left ventricle with ejection fraction of 45% IMPRESSIONS 1. Myocardial perfusion imaging revealing moderate to large area of minimal to moderately decreased tracer uptake involving the inferior, inferolateral, anterolateral and apical regions with some reversibility suggesting myocardial scarring involving the distribution of all 3 coronary arteries with some fely- infarction ischemia.. However because of the inconsistency with the prone imaging, the reliability is questionable . 2. LV ejection fraction is 45%. 3. LV wall motion analysis revealing diffuse hypokinesia of the left ventricle. 4. Mildly dilated LV cavity with an end-systolic volume of 82 mL Comparison with the previous study is difficult because of the differences in the technical quality. Clinical correlation is recommended Dr Hector Moe MD FAC (Electronically Signed) Final Date: 08 March 2024 13:18 S
[2024-03-08 10:34] VITALS: BMI 24.3
[2024-03-08] MEDS: regadenoson 0.4 Mg/5 ml Syringe IVP (11:52)
[2024-03-08 12:14] VITALS: BP 146/74; PULSE 107
== END 2024-03-08 10:14 | disposition home or self-care (01) ==
PROVIDERS: PCP Family Medicine; Visit Provider Nurse Practitioner Family
DX: I20.89 Other forms of angina pectoris (principal); R94.39 Abnormal result of other cardiovascular function study
CPT/HCPCS: 36415; 78452; 93017; 96374; A9500; J2785

== ENCOUNTER → 2024-03-12 10:33 | Outpatient (BNVA) | payer MEDICARE, MEDICAID, SELFPAY | PROVIDERS: PCP Family Medicine; Visit Provider Thoracic Surgery (Cardiothoracic Vascular Surgery) | DX: E11.52 Type 2 diabetes mellitus with diabetic peripheral angiopathy with gangrene (principal); E11.621 Type 2 diabetes mellitus with foot ulcer; L97.511 Non-pressure chronic ulcer of other part of right foot limited to breakdown of skin | CPT/HCPCS: 97597; A6210 ==

== ENCOUNTER → 2024-03-20 09:15 | Outpatient (BNVA) | payer MEDICARE, MEDICAID, SELFPAY | PROVIDERS: PCP Family Medicine; Visit Provider Thoracic Surgery (Cardiothoracic Vascular Surgery) | DX: E11.52 Type 2 diabetes mellitus with diabetic peripheral angiopathy with gangrene (principal); E11.621 Type 2 diabetes mellitus with foot ulcer; L97.511 Non-pressure chronic ulcer of other part of right foot limited to breakdown of skin | CPT/HCPCS: 97597; A6210 ==

== ENCOUNTER 2024-03-22 10:43 | Emergency (ER) | payer MEDICARE, MEDICAID, SELFPAY ==
[2024-03-22 11:14] VITALS: BP 152/75; PULSE 103; RESP 18; TEMP 36.6; O2SAT 99; BMI 23.8
[2024-03-22 11:57] LABS: Basophils # 0.1 10^3/uL (0.0-0.1); Basophils % 0.7 %; Eosinophils # 0.3 10^3/uL (0.0-0.8); Eosinophils % 3.9 %; Hematocrit 32.5 % (36-47); Lymphocytes # 1.4 10^3/uL (0.8-4.8); Lymphocytes % 16.2 %; Mean Corpuscular Hemoglobin 34.1 pg (27-33); Mean Corpuscular Volume 106.6 fl (85-98); Mean Platelet Volume 9.3 fL (7.4-10.4); Monocytes # 0.4 10^3/uL (0.2-0.9); Monocytes % 4.1 %; Neutrophils # 6.53 10^3/uL (1.8-7.7); Neutrophils % 74.8 %; Nucleated Red Blood Cells % 0 %; Platelet Count 202 10^3/cmm (157-399); Red Blood Count 3.05 10^6/uL (3.85-5.65); Red Cell Distribution Width 14.1 % (12.1-15.1); White Blood Count 8.74 10^3/uL (3.29-11.43)
[2024-03-22 12:17] LABS: Lactic Sepsis W/Reflex 0.8 mmol/L (0.5-2.2)
[2024-03-22 12:18] LABS: Alanine Aminotransferase 16 U/L (0-33); Albumin Level 4.6 g/dL (3.5-5.2); Alkaline Phosphatase 116 U/L (35-105); Anion Gap 21.2 (5-19); Aspartate Amino Transferase 16 U/L (0-32); Blood Urea Nitrogen 42 mg/dL (6-20); Carbon Dioxide 20 mmol/L (22-29); Chloride 103 mmol/L (98-107); Creatinine Clr Calc Pharmacy 14.8082; Globulin 2.8 g/dL (1.3-4.6); Glomerular Filtration Rate 9.2 mL/min (90-130); Glucose 123 mg/dL (65-115); Lipase 166 U/L (13-60); Osmolality Calculated 300 mOsm/kg (285-295); Potassium 5.2 mmol/L (3.5-5.1); Sodium 139 mmol/L (136-145); Total Bilirubin 0.5 mg/dL (0.15-1.2); Total Protein 7.4 g/dL (6.6-8.7)
--- NOTE | 2024-03-22 12:35 | W.ED.NAVMDI ---
HPI - Nausea/Vomiting/Diarrhea General: Chief complaint: Nausea/Vomiting/Diarrhea Stated complaint: vomitting Time Seen by Provider: 03/22/24 12:31 History of Present Illness: 48-year-old female with a history of end-stage renal disease on dialysis who presents to the emergency room with nausea vomiting and diarrhea for about a week now. No focal abdominal pain. No altered mental status. No chest pain. No fevers. She is on vancomycin for a wound on her foot. Related Data Home Medications Medication Instructions Recorded Confirmed acetaminophen 325 mg capsule 325 mg PO QID PRN Pain 06/19/19 03/22/24 blood-glucose meter (OneTouch #1 ea 06/19/19 03/22/24 UltraMini kit) pantoprazole 40 mg tablet,delayed 40 mg PO BID 06/19/19 03/22/24 release sodium bicarbonate 650 mg tablet 650 mg PO DAILY PRN Dialysis 09/18/19 03/22/24 apixaban 2.5 mg tablet (Eliquis) 2.5 mg PO BID 12/11/19 03/22/24 alprazolam 0.25 mg tablet (Xanax) 0.25 mg PO BID PRN Anxiety 04/01/20 03/22/24 diphenhydramine HCl 25 mg capsule 25 mg PO TID PRN Itching 04/01/20 03/22/24 (Benadryl) hydralazine 25 mg tablet 25 mg PO TID 01/21/23 03/22/24 melatonin 10 mg capsule 10 mg PO BEDTIME 01/21/23 03/22/24 ondansetron HCl 4 mg tablet 4 mg PO Q8H PRN Nausea 01/21/23 03/22/24 ropinirole 0.25 mg tablet 0.25 mg PO BEDTIME 01/21/23 03/22/24 sevelamer carbonate 800 mg tablet 1,600 mg PO TID 01/21/23 03/22/24 vit B,C-folic ac 800 mcg-zinc 12.5 1 tab PO DAILY 01/21/23 03/22/24 mg-selen-D3 2,000 unit-vit E tablet (RenaPlex-D) promethazine 25 mg tablet 25 mg PO QID PRN Nausea And 05/02/23 03/22/24 Vomiting carvedilol 25 mg tablet 25 mg PO BID 06/04/23 03/22/24 difelikefalin 50 mcg/mL 50 mcg IV QMWF 06/04/23 03/22/24 intravenous solution (Korsuva) semaglutide 1 mg/dose (4 mg/3 mL) 1 mg SUBCUT Q7D 06/04/23 03/22/24 subcutaneous pen injector (Ozempic) amlodipine 10 mg tablet 10 mg PO DAILY 03/22/24 03/22/24 citalopram 20 mg tablet 20 mg PO DAILY 03/22/24 03/22/24 Previous Rx's Medication Instructions Recorded Diabetic Shoes #1 ea 06/19/19 ondansetron 8 mg disintegrating 8 mg PO Q6H #14 tabs 03/22/24 tablet promethazine 25 mg rectal 25 mg OH Q6H PRN nausea and 03/22/24 suppository vomiting #12 ea Allergies Allergy/AdvReac Type Severity Reaction Status Date / Time sulfamethoxazole Allergy Severe ALGY-Rash Verified 03/22/24 11:20 [From Sulfamethoxazole-Trimethoprim] trimethoprim Allergy Severe ALGY-Rash Verified 03/22/24 11:20 [From Sulfamethoxazole-Trimethoprim] adhesive tape Allergy Unknown blisters Verified 03/22/24 11:20 Cephalosporins Allergy Unknown unknown Verified 03/22/24 11:20 doxycycline Allergy ADR-Vomitin Verified 03/22/24 11:20 g latex Allergy blisters Verified 03/22/24 11:20 Review of Systems Narrative: Constitutional symptoms: Negative except as documented in HPI. Skin symptoms: Negative except as documented in HPI. Eye symptoms: Negative except as documented in HPI. ENMT symptoms: Negative except as documented in HPI. Respiratory symptoms: Negative except as documented in HPI. Cardiovascular symptoms: Negative except as documented in HPI. Gastrointestinal symptoms: Negative except as documented in HPI. Genitourinary symptoms: Negative except as documented in HPI. Musculoskeletal symptoms: Negative except as documented in HPI. Neurologic symptoms: Negative except as documented in HPI. Psychiatric symptoms: Negative except as documented in HPI. Endocrine symptoms: Negative except as documented in HPI. PFSH ED PFSH: Medical History Tachycardia Diabetes Deep vein thrombosis (DVT) during Chronic anticoagulation Squamous cell carcinoma of anal canal Diabetes mellitus End-stage renal disease Surgical History Status post surgery (05/19/20) Removal of peritoneal dialysis catheter Port-A-Cath in place S/P hemodialysis catheter insertion (01/09/20) Removed 11/18/2020 Peritoneal dialysis status H/O colonoscopy H/O hand surgery History of hip surgery History of hysterectomy Family History Other Cancer Diabetes Denies family history of Anesthesia complication Bleeding disorder Social History Smoking and tobacco/nicotine status: current every day tobacco/nicotine user Alcohol intake: never Substance/Drug Use: never Household members: family Marital status: Single Current occupational status: disabled Physical Exam Narrative: EXAM NARRATIVE: General: Alert, no acute distress. Skin: Warm, dry. Head: Normocephalic, atraumatic. Neck: Supple, trachea midline. Eye: Extraocular movements are intact. Ears, nose, mouth and throat: Tacky oral mucosa Cardiovascular: Regular, Normal peripheral perfusion. Respiratory: Lungs are clear to auscultation, respirations are non-labored, breath sounds are equal, Symmetrical chest wall expansion. Gastrointestinal: Soft, Nontender, Non distended Musculoskeletal: Normal ROM, no deformity. Neurological: Alert and oriented, No focal neurological deficit observed. Psychiatric: Cooperative, appropriate mood & affect. Course Vital Signs: Vital signs: Vital Signs Temperature 97.9 F 03/22/24 11:14 Pulse Rate 92 03/22/24 13:48 Respiratory Rate 16 03/22/24 13:48 Blood Pressure 158/82 03/22/24 13:48 Pulse Oximetry 98 03/22/24 13:48 Oxygen Delivery Me thod Room Air 03/22/24 13:48 MDM - Nausea/Vomiting/Diarrhea Medical Decision Making Medical decision making: Differential diagnosis for this patient with nausea and vomiting including but not limited to and based on the above HPI, review of systems and physical exam: Urinary tract infection. Appendicitis. Cholecystis. colitis. small bowel obstruction. crohn's flare. pancreatitis. gastritis. peptic ulcer. cyclic vomiting. Viral illness. Influenza. COVID. - Workup - labwork and imaging ordered to evaluate, rule in and rule out above pathologies. Lab Review: Laboratory results were reviewed and interpreted by myself the emergency room physician. No leukocytosis. Stable anemia. BUN and creatinine are 42 and 5 which would be expected this dialysis patient with a potassium of 5.2. Lipase is mildly elevated but she does not have epigastric pain and this is likely secondary to vomiting rather than the cause of the vomiting at this low level. Urinalysis is negative. I reviewed the patient's medical record. Reexamination: Patient remained stable. No increased work of breathing. No altered mental status. No focal motor deficits. Assessment and plan: Nausea and vomiting Dehydration End-stage renal disease on dialysis ? 500 mL normal saline bolus and 8 mg IV Zofran in the emergency room. - Discharged home - Discussed plan with patient. Answered any questions. - Evaluation and treatment of this problem were appropriate in the emergency setting. Lab Data 03/22/24 11:47 03/22/24 11:47 Laboratory Results WBC 8.74 10^3/uL (3.29-11.43) 03/22/24 11:47 RBC 3.05 10^6/uL (3.85-5.65) L 03/22/24 11:47 Hgb 10.40 g/dL (11.27-16.99) L 03/22/24 11:47 Hct 32.5 % (36-47) L 03/22/24 11:47 MCV 106.6 fl (85-98) H 03/22/24 11:47 MCH 34.1 pg (27-33) H 03/22/24 11:47 MCHC 32.0 g/dL (30-55) 03/22/24 11:47 RDW 14.1 % (12.1-15.1) 03/22/24 11:47 Plt Count 202 10^3/cmm (157-399) 03/22/24 11:47 MPV 9.3 fL (7.4-10.4) 03/22/24 11:47 Neut % (Auto) 74.8 % 03/22/24 11:47 Lymph % (Auto) 16.2 % 03/22/24 11:47 [place] % (Auto) 4.1 % 03/22/24 11:47 Eos % (Auto) 3.9 % 03/22/24 11:47 Baso % (Auto) 0.7 % 03/22/24 11:47 Neut # (Auto) 6.53 10^3/uL (1.8-7.7) 03/22/24 11:47 Lymph # (Auto) 1.4 10^3/uL (0.8-4.8) 03/22/24 11:47 [place] # (Auto) 0.4 10^3/uL (0.2-0.9) 03/22/24 11:47 Eos # (Auto) 0.3 10^3/uL (0.0-0.8) 03/22/24 11:47 Baso # (Auto) 0.1 10^3/uL (0.0-0.1) 03/22/24 11:47 Nucleated RBC % (auto) 0 % 03/22/24 11:47 Nucleated RBCs # 0.0 /100WBC 03/22/24 11:47 Sodium 139 mmol/L (136-145) 03/22/24 11:47 Potassium 5.2 mmol/L (3.5-5.1) H 03/22/24 11:47 Chloride 103 mmol/L (98-107) 03/22/24 11:47 Carbon Dioxide 20 mmol/L (22-29) L 03/22/24 11:47 Anion Gap 21.2 (5-19) H 03/22/24 11:47 BUN 42 mg/dL (6-20) H 03/22/24 11:47 Creatinine 5.0 mg/dL (0.5-0.9) H 03/22/24 11:47 GFR Calculation 9.2 mL/min (90-130) L 03/22/24 11:47 Glucose 123 mg/dL (65-115) H 03/22/24 11:47 Calculated Osmolality 300 mOsm/kg (285-295) H 03/22/24 11:47 Lactic Acid 0.8 mmol/L (0.5-2.2) 03/22/24 11:47 Calcium 10.0 mg/dL (8.5-10.5) 03/22/24 11:47 Total Bilirubin 0.5 mg/dL (0.15-1.2) 03/22/24 11:47 AST 16 U/L (0-32) 03/22/24 11:47 ALT 16 U/L (0-33) 03/22/24 11:47 Alkaline Phosphatase 116 U/L (35-105) H 03/22/24 11:47 Total Protein 7.4 g/dL (6.6-8.7) 03/22/24 11:47 Albumin 4.6 g/dL (3.5-5.2) 03/22/24 11:47 Globulin 2.8 g/dL (1.3-4.6) 03/22/24 11:47 Lipase 166 U/L (13-60) H 03/22/24 11:47 Urine Color Yellow (Yellow) 03/22/24 14:29 Urine Appearance Clear (CLEAR) 03/22/24 14:29 Urine pH 8.5 (5-7) A 03/22/24 14:29 Ur Specific [place] 1.011 (1.005-1.030) 03/22/24 14:29 Urine Protein 2+ (Negative) A 03/22/24 14:29 Urine Glucose (UA) Trace (Normal) H 03/22/24 14:29 Urine Ketones Negative (Negative) 03/22/24 14:29 Urine Blood Negative (Negative) 03/22/24 14:29 Urine Nitrate Negative (Negative) 03/22/24 14:29 Urine Bilirubin Negative (Negative) 03/22/24 14:29 Urine Urobilinogen 0.2 mg/dL (Negative) 03/22/24 14:29 Ur Leukocyte Esterase Negative (Negative) 03/22/24 14:29 Urine RBC 0-2 /hpf (0-2) 03/22/24 14:29 Urine WBC 0-5 /hpf (0-5) 03/22/24 14:29 Ur Squamous Epith Cells 0-5 /hpf (0-5) 03/22/24 14:29 Amorphous Sediment Not Reportable 03/22/24 14:29 Urine Bacteria None seen /hpf (NONE) 03/22/24 14:29 Hyaline Casts 0.40 /lpf 03/22/24 14:29 No radiology studies performed this visit Discharge Plan Discharge Patient Disposition: Home Clinical Impression: Nausea & vomiting, Dehydration Condition: Stable Prescriptions: New promethazine 25 mg suppository 25 mg OH Q6H PRN (Reason: nausea and vomiting) Qty: 12 0RF ondansetron 8 mg tablet,disintegrating 8 mg PO Q6H Qty: 14 0RF Rx Instructions: Take 1/2-1 tab every 6 hours as needed for nausea and vomiting No Action alprazolam [Xanax] 0.25 mg tablet 0.25 mg PO BID PRN (Reason: Anxiety) diphenhydramine HCl [Benadryl] 25 mg capsule 25 mg PO TID PRN (Reason: Itching) acetaminophen 325 mg capsule 325 mg PO QID PRN (Reason: Pain) pantoprazole 40 mg tablet,delayed release (DR/EC) 40 mg PO BID (DME) blood-glucose meter [[employer] TechnologyTouch UltraMini] Kit See Rx Instructions .ROUTE .MEDSUPPLY Qty: 1 Rx Instructions: As directed (DME) Diabetic Shoes Qty: 1 0RF Rx Instructions: As directed sodium bicarbonate 650 mg tablet 650 mg PO DAILY PRN (Reason: Dialysis) promethazine 25 mg tablet 25 mg PO QID PRN (Reason: Nausea And Vomiting) Eliquis 2.5 mg Tablet 2.5 mg PO BID Hold Instructions: Resume on 08/19/23. ondansetron HCl 4 mg Tablet 4 mg PO Q8H PRN (Reason: Nausea) hydralazine 25 mg tablet 25 mg PO TID ropinirole 0.25 mg Tablet 0.25 mg PO BEDTIME sevelamer carbonate 800 mg tablet 1,600 mg PO TID melatonin 10 mg Capsule 10 mg PO BEDTIME RenaPlex-D 800 mcg-12.5 mg -2,000 unit Tablet 1 tab PO DAILY carvedilol 25 mg tablet 25 mg PO BID Ozempic 1 mg/dose (4 mg/3 mL) pen injector 1 mg SUBCUT Q7D Rx Instructions: on tuesday Korsuva 50 mcg/mL Solution 50 mcg IV QMWF amlodipine 10 mg tablet 10 mg PO DAILY citalopram 20 mg tablet 20 mg PO DAILY Discharge Orders: Discharge ED (Routine); Ordered 03/22/24 Ordered By: Mónica Long Referrals: Herber Hussein MD [Primary Care Provider] - Discharge Diet: Advance as tolerated and Full LIquid Discharge Activity: Increase activity as tolerated Patient Instructions: Acute Nausea and Vomiting (ED), Opioid Safety, Pain Management Activity Restrictions/Additional Instructions: Thank you for choosing [facility] for your healthcare needs today. Please realize this is an emergency room and that we are providing you with a medical screening exam and this may not be complete and all inclusive of all the testing and or work up that you may need to determine your ailment or severity of your illness. You have been screened and evaluated and felt safe for discharge. Health conditions do change or evolve sometimes and as such it is important that you follow up with your Primary Doctor to be re checked, 3-5 days is a general good time frame for follow up. You are always welcome to return to the ED for re assessment if your symptoms are worsening or you have new concerns Coding Level of Care Code ED [employer] for [employer]
--- NOTE | 2024-03-22 12:58 | PC.PHAR ---
Addendum entered by Yen Zurita 03/22/24 13:02: Pt did not keep any medications down, they all came back up today. Original Note: Pt verified all her meds. Dosage on Amlodipine increased to 10mg daily, Citalopram decreased to 20mg daily in stead of 60mg total due to a bleed, and has to go back on the Sodium bicarb 650mg daily prn. Last fill on carvedilol 25mg shows 07/28/23 and Eliquis 2.5mg bid shows 11/16/23 90ds.
[2024-03-22] MEDS: sodium chloride 0.9% 500 ML 999 ML IV (13:31)
[2024-03-22] MEDS: ondansetron 2 mg/ML SDV 2 mL 8 MG IVP (13:31)
[2024-03-22 13:48] VITALS: BP 158/82; PULSE 92; RESP 16; O2SAT 98
[2024-03-22 14:44] LABS: Bilirubin Urine Negative (Negative); Blood Urine Negative (Negative); Glucose Urine UA Trace (Normal); Ketones Urine Negative (Negative); Leukocyte Esterase Urine Negative (Negative); Nitrate Urine Negative (Negative); Protein Urine 2+ (Negative); Specific Gravity, Urine 1.011 (1.005-1.030); Urine Appearance Clear (CLEAR); Urine Color Yellow (Yellow); Urobilinogen Urine 0.2 mg/dL (Negative); pH Urine 8.5 (5-7)
[2024-03-22 14:52] LABS: Bacteria Urine None Seen /hpf; RBC Urine 0-2 /hpf (0-2); Squamous Epithelial Cell Urine 0-5 /hpf (0-5); WBC Urine 0-5 /hpf (0-5)
[2024-03-22 15:47] VITALS: BP 147/71; PULSE 95; RESP 16; O2SAT 97
== END 2024-03-22 15:43 | disposition home or self-care (01) ==
PROVIDERS: Emergency Provider Emergency Medicine; PCP Family Medicine
DX: R11.2 Nausea with vomiting, unspecified (principal); E86.0 Dehydration; Z72.0 Tobacco use; E11.22 Type 2 diabetes mellitus with diabetic chronic kidney disease; N18.6 End stage renal disease; Z99.2 Dependence on renal dialysis; C21.0 Malignant neoplasm of anus, unspecified
CPT/HCPCS: 36415; 80053; 81001; 83605; 83690; 85025; 96361; 96374; 99284; J2405; J7040

== ENCOUNTER → 2024-03-26 10:45 | Outpatient (BNVA) | payer MEDICARE, MEDICAID, SELFPAY | PROVIDERS: PCP Family Medicine; Visit Provider Thoracic Surgery (Cardiothoracic Vascular Surgery) | DX: E11.52 Type 2 diabetes mellitus with diabetic peripheral angiopathy with gangrene (principal); E11.621 Type 2 diabetes mellitus with foot ulcer; L97.511 Non-pressure chronic ulcer of other part of right foot limited to breakdown of skin | CPT/HCPCS: 97597 ==

== ENCOUNTER → 2024-04-02 10:11 | Outpatient (BNVA) | payer MEDICARE, MEDICAID, SELFPAY | PROVIDERS: PCP Family Medicine; Visit Provider Thoracic Surgery (Cardiothoracic Vascular Surgery) | DX: E11.52 Type 2 diabetes mellitus with diabetic peripheral angiopathy with gangrene (principal); E11.621 Type 2 diabetes mellitus with foot ulcer; L97.511 Non-pressure chronic ulcer of other part of right foot limited to breakdown of skin | CPT/HCPCS: 97597; A6210 ==

== ENCOUNTER → 2024-04-09 11:19 | Outpatient (BNVA) | payer MEDICARE, MEDICAID, SELFPAY | PROVIDERS: PCP Family Medicine; Visit Provider Thoracic Surgery (Cardiothoracic Vascular Surgery) | DX: E11.621 Type 2 diabetes mellitus with foot ulcer (principal); L97.511 Non-pressure chronic ulcer of other part of right foot limited to breakdown of skin | CPT/HCPCS: 97597 ==

== ENCOUNTER → 2024-04-16 10:21 | Outpatient (BNVA) | payer MEDICARE, MEDICAID, SELFPAY | PROVIDERS: PCP Family Medicine; Visit Provider Thoracic Surgery (Cardiothoracic Vascular Surgery) | DX: Z09 Encounter for follow-up examination after completed treatment for conditions other than malignant neoplasm (principal); Z87.2 Personal history of diseases of the skin and subcutaneous tissue | CPT/HCPCS: 99212; A6210 ==

== ENCOUNTER 2024-05-07 06:36 | Inpatient (IN) | payer MEDICARE, MEDICAID, SELFPAY ==
[2024-05-07] VITALS (39 sets, daily range): BP systolic 118–205; BP diastolic 66–99; PULSE 102–124; RESP 13–31; TEMP 36.3–36.4; O2SAT 90–100; BMI 24.7
--- NOTE | 2024-05-07 06:42 | XRR_ITS ---
PROCEDURE INFORMATION: Exam: XR Chest Exam date and time: 05/07/2024 6:58 AM Age: 48 years old Clinical indication: Pain; Angina pectoris; Prior surgery; Surgery date: 6+ months; Surgery type: Port; HX of anal cancer; Additional info: Chest pain TECHNIQUE: Imaging protocol: Radiologic exam of the chest. Views: 1 view. COMPARISON: CR XR chest 1V portable [id number] 07/30/2023 10:47 PM FINDINGS: Tubes, catheters and devices: Left chest wall MediPort with tip terminating at the lower SVC. Lungs: No focal consolidation. Pleural spaces: Unremarkable. No pleural effusion. No pneumothorax. Heart/Mediastinum: Unremarkable. No cardiomegaly. Vasculature: Mild tortuosity of the aorta. Bones/joints: Unremarkable. XR/XR chest 1V portable [id number] IMPRESSION: No acute cardiopulmonary findings.
--- NOTE | 2024-05-07 06:42 | ECG_ITS ---
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 Measurements Intervals [place] Rate: 124 P: 60 [place]: 156 QRS: -5 QRSD: 90 T: 98 QT: 341 QTc: 490 Interpretive Statements SINUS TACHYCARDIA LEFT VENTRICULAR HYPERTROPHY AND ST-T CHANGE [VOLTAGE CRITERIA PLUS ST/T ABNORMALITY] POSSIBLE SEPTAL MYOCARDIAL INFARCTION , OF INDETERMINATE AGE [30 ms Q WAVE IN V1/V2] Compared to ECG 02/21/2024 10:06:18 Left ventricular hypertrophy now present ST (T wave) deviation now present Myocardial infarct finding now present T-wave abnormality no longer present Electronically Signed On 05-07-2024 11:24:44 [employer] by Hector Moe M.D. [email or web address]
--- NOTE | 2024-05-07 06:58 | W.ED.CHESTPA ---
HPI - Chest Pain General: Chief Complaint: Chest Pain Stated Complaint: CHEST PAIN Time Seen by Provider: 05/07/24 06:41 History of Present Illness: 48-year-old female presents emergency room with complaint of nausea and vomiting up most of the night. Patient has epigastric pain no radiation. She did receive Zofran and heparin in the field. Patient has a history of dialysis usually gets dialysis Tuesday, she did receive a full dialysis run on Tuesday after she had missed her dialysis on Tuesday because of a tooth problem. She complaining of epigastric pain primarily she does still make some urine she denies any dysuria urgency or frequency or hematuria. She has not had any hematemesis or coffee-ground emesis. When talking examining the patient her pain seems more epigastric focused than chest pain.. Associated symptoms: Deny abdominal pain, dyspnea or fever(s) Related Data Home Medications ?Medication ?Instructions ?Recorded ?Confirmed acetaminophen 325 mg capsule 325 mg PO QID PRN Pain 06/19/19 05/07/24 blood-glucose meter ([employer]uch #1 ea 06/19/19 05/07/24 UltraMini kit) pantoprazole 40 mg tablet,delayed 40 mg PO BID 06/19/19 05/07/24 release sodium bicarbonate 650 mg tablet 650 mg PO DAILY PRN Dialysis 09/18/19 05/07/24 apixaban 2.5 mg tablet (Eliquis) 2.5 mg PO BID 12/11/19 05/07/24 alprazolam 0.25 mg tablet (Xanax) 0.25 mg PO BID PRN Anxiety 04/01/20 05/07/24 diphenhydramine HCl 25 mg capsule 25 mg PO TID PRN Itching 04/01/20 05/07/24 (Benadryl) hydralazine 25 mg tablet 25 mg PO TID 01/21/23 05/07/24 melatonin 10 mg capsule 10 mg PO BEDTIME 01/21/23 05/07/24 ondansetron HCl 4 mg tablet 4 mg PO Q8H PRN Nausea 01/21/23 05/07/24 ropinirole 0.25 mg tablet 0.25 mg PO BEDTIME 01/21/23 05/07/24 sevelamer carbonate 800 mg tablet 1,600 mg PO TID 01/21/23 05/07/24 vit B,C-folic ac 800 mcg-zinc 12.5 1 tab PO DAILY 01/21/23 05/07/24 mg-selen-D3 2,000 unit-vit E tablet (RenaPlex-D) carvedilol 25 mg tablet 25 mg PO BID 06/04/23 05/07/24 difelikefalin 50 mcg/mL 50 mcg IV QMWF 06/04/23 05/07/24 intravenous solution (Korsuva) semaglutide 1 mg/dose (4 mg/3 mL) 1 mg SUBCUT Q7D 06/04/23 05/07/24 subcutaneous pen injector (Ozempic) amlodipine 10 mg tablet 10 mg PO DAILY 03/22/24 05/07/24 citalopram 20 mg tablet 20 mg PO DAILY 03/22/24 05/07/24 Previous Rx's ?Medication ?Instructions ?Recorded Diabetic Shoes #1 ea 06/19/19 ondansetron 8 mg disintegrating 8 mg PO Q6H #14 tabs 03/22/24 tablet promethazine 25 mg rectal 25 mg [place] Q6H PRN nausea and 03/22/24 suppository vomiting #12 ea Allergies Allergy/AdvReac Type Severity Reaction Status Date / Time sulfamethoxazole (From Allergy Severe ALGY-Rash Verified 03/22/24 11:20 Sulfamethoxazole-Trimethoprim) trimethoprim (From Allergy Severe ALGY-Rash Verified 03/22/24 11:20 Sulfamethoxazole-Trimethoprim) adhesive tape Allergy Unknown blisters Verified 03/22/24 11:20 Cephalosporins Allergy Unknown unknown Verified 03/22/24 11:20 doxycycline Allergy ADR-Vomitin Verified 03/22/24 11:20 g latex Allergy blisters Verified 03/22/24 11:20 Review of Systems Const: Denies: fever(s) or chills Card: Denies: chest pain Resp: Denies: dyspnea GI: Denies: abdominal pain : Denies: dysuria, urinary frequency or urinary urgency Musc: Denies: neck pain or back pain Skin/Breast: Denies: rash PFSH ED PFSH: Medical History Tachycardia Diabetes Deep vein thrombosis (DVT) during Chronic anticoagulation Squamous cell carcinoma of anal canal Diabetes mellitus End-stage renal disease Surgical History Status post surgery (05/19/20) Removal of peritoneal dialysis catheter Port-A-Cath in place S/P hemodialysis catheter insertion (01/09/20) Removed 11/18/2020 Peritoneal dialysis status H/O colonoscopy H/O hand surgery History of hip surgery History of hysterectomy Family History Other Cancer Diabetes Denies family history of Anesthesia complication Bleeding disorder Social History Smoking and tobacco/nicotine status: current every day tobacco/nicotine user Alcohol intake: never Substance/Drug Use: never Household members: family Marital status: Single Current occupational status: disabled Physical Exam Const: GENERAL APPEARANCE: cooperative ORIENTATION/CONSCIOUSNESS: Yes awake, Yes oriented to person, Yes oriented to place and Yes oriented to time HENMT: COMMON NORMALS: normocephalic, atraumatic and hearing grossly normal bilaterally HEAD & SCALP: normocephalic and atraumatic Resp: COMMON NORMALS: normal respiratory effort, No retractions, No use of accessory muscles and clear to auscultation bilaterally AUSCULTATION: clear to auscultation bilaterally Cardio: COMMON NORMALS: regular rate, regular rhythm and No murmurs present (Cardio) RATE: regular rate RHYTHM: regular rhythm GI: COMMON NORMALS: Soft to palpation and No hepatosplenomegaly present AUSCULTATION: Yes normoactive bowel sounds PALPATION: Yes Soft to palpation, No Tenderness to palpation present (GI), No Guarding due to palpation present (GI) and Yes No hepatosplenomegaly present Extremity: COMMON NORMALS: normal to inspection, capillary refill normal, no clubbing, cyanosis or edema, no calf tenderness and no pedal edema Neuro: SENSORIUM/ORIENTATION: Yes oriented to person, Yes oriented to place and Yes oriented to time Skin: COMMON NORMALS: no rashes or lesions noted GENERAL SKIN EXAM: no rashes or lesions noted Course Vital Signs: Vital signs: Vital Signs Temperature 97.5 F L 05/07/24 06:38 Pulse Rate 109 H 05/07/24 13:45 Respiratory Rate 15 05/07/24 13:45 Blood Pressure 136/75 05/07/24 13:45 Pulse Oximetry 97 05/07/24 13:45 Oxygen Delivery Me thod Room Air 05/07/24 06:38 MDM - Chest Pain Medical Decision Making No definitive findings on the CT of her abdomen she continues to have persistent nausea and vomiting. She has a pretty significant anion gap and she will be due for dialysis today will place her on observation. I did get a blood gas on her did not show acidosis. Lactic acid is 2.2. Her glucose was 167 do not believe this is DKA could be due to will admit discussed with hospitalist orders written. Consult nephrology Medical Records I reviewed the patient's medical records. Lab Data I reviewed the patient's lab results. 05/07/24 06:56 05/07/24 06:56 Radiology Impressions Chest X-Ray 05/07/24 06:42 IMPRESSION: No acute cardiopulmonary findings. Abdomen/Pelvis CT 05/07/24 07:04 IMPRESSION: 1. Nonspecific innumerable punctate hyperdensities throughout the large bowel. Query ingestion of hyperdense material. Prominent jejunal bowel loops without evidence of obstruction. 2. Nonspecific findings of a cystic focus at the posterior right rectal fascia. Differential includes tail gut duplication cyst although this is not been visualized on prior CTs. Consider further evaluation with MRI rectum. Laboratory Results WBC 9.64 10^3/uL (3.29-11.43) 05/07/24 06:56 RBC 3.96 10^6/uL (3.85-5.65) 05/07/24 06:56 Hgb 13.10 g/dL (11.27-16.99) 05/07/24 06:56 Hct 40.1 % (36-47) 05/07/24 06:56 MCV 101.3 fl (85-98) H 05/07/24 06:56 MCH 33.1 pg (27-33) H 05/07/24 06:56 MCHC 32.7 g/dL (30-55) 05/07/24 06:56 RDW 13.4 % (12.1-15.1) 05/07/24 06:56 Plt Count 141 10^3/cmm (157-399) L 05/07/24 06:56 MPV 9.7 fL (7.4-10.4) 05/07/24 06:56 Neut % (Auto) 91.2 % 05/07/24 06:56 Lymph % (Auto) 2.1 % 05/07/24 06:56 Ogle % (Auto) 3.9 % 05/07/24 06:56 Eos % (Auto) 2.2 % 05/07/24 06:56 Baso % (Auto) 0.3 % 05/07/24 06:56 Neut # (Auto) 8.79 10^3/uL (1.8-7.7) H 05/07/24 06:56 Lymph # (Auto) 0.2 10^3/uL (0.8-4.8) L 05/07/24 06:56 Ogle # (Auto) 0.4 10^3/uL (0.2-0.9) 05/07/24 06:56 Eos # (Auto) 0.2 10^3/uL (0.0-0.8) 05/07/24 06:56 Baso # (Auto) 0.0 10^3/uL (0.0-0.1) 05/07/24 06:56 Nucleated RBC % (auto) 0 % 05/07/24 06:56 Nucleated RBCs # 0.0 /100WBC 05/07/24 06:56 Sodium 142 mmol/L (136-145) 05/07/24 06:56 Potassium 4.0 mmol/L (3.5-5.1) 05/07/24 06:56 Chloride 102 mmol/L (98-107) 05/07/24 06:56 Carbon Dioxide 19 mmol/L (22-29) L 05/07/24 06:56 Anion Gap 25.0 (5-19) H 05/07/24 06:56 BUN 47 mg/dL (6-20) H 05/07/24 06:56 Creatinine 4.8 mg/dL (0.5-0.9) H 05/07/24 06:56 GFR Calculation 9.6 mL/min (90-130) L 05/07/24 06:56 Glucose 242 mg/dL (65-115) H 05/07/24 06:56 Calculated Osmolality 314 mOsm/kg (285-295) H 05/07/24 06:56 Uric Acid 5.4 mg/dL (2.4-5.7) 05/07/24 06:56 Calcium 9.1 mg/dL (8.5-10.5) 05/07/24 06:56 Total Bilirubin 0.5 mg/dL (0.15-1.2) 05/07/24 06:56 AST 16 U/L (0-32) 05/07/24 06:56 ALT 23 U/L (0-33) 05/07/24 06:56 Alkaline Phosphatase 109 U/L (35-105) H 05/07/24 06:56 Troponin T Baseline 36 ng/L (0-10) H 05/07/24 06:56 Troponin T 120 Minute 34.38 ng/L (0-10) H 05/07/24 09:18 Delta Troponin T -1.62 ABS# (0-10) L 05/07/24 09:18 Total Protein 6.7 g/dL (6.6-8.7) 05/07/24 06:56 Albumin 4.5 g/dL (3.5-5.2) 05/07/24 06:56 Globulin 2.2 g/dL (1.3-4.6) 05/07/24 06:56 Urine Color Yellow (Yellow) 05/07/24 10:35 Urine Appearance Clear (CLEAR) 05/07/24 10:35 Urine pH >=9.0 (5-7) A 05/07/24 10:35 Ur Specific [place] 1.016 (1.005-1.030) 05/07/24 10:35 Urine Protein 3+ (Negative) A 05/07/24 10:35 Urine Glucose (UA) 2+ (Normal) H 05/07/24 10:35 Urine Ketones Trace (Negative) 05/07/24 10:35 Urine Blood Negative (Negative) 05/07/24 10:35 Urine Nitrate Negative (Negative) 05/07/24 10:35 Urine Bilirubin Negative (Negative) 05/07/24 10:35 Urine Urobilinogen 0.2 mg/dL (Negative) 05/07/24 10:35 Ur Leukocyte Esterase Negative (Negative) 05/07/24 10:35 Urine RBC 6-10 /hpf (0-2) 05/07/24 10:35 Urine WBC 0-5 /hpf (0-5) 05/07/24 10:35 Ur Squamous Epith Cells 0-5 /hpf (0-5) 05/07/24 10:35 Amorphous Sediment Not Reportable 05/07/24 10:35 Urine Bacteria None seen /hpf (NONE) 05/07/24 10:35 Hyaline Casts 0-4 /lpf H 05/07/24 10:35 Urine Opiates Screen Negative ng/mL (Negative) 05/07/24 10:35 Ur Barbiturates Screen Negative ng/mL (Negative) 05/07/24 10:35 Ur Phencyclidine Scrn Negative ng/mL (Negative) 05/07/24 10:35 Ur Amphetamines Screen Negative ng/mL (Negative) 05/07/24 10:35 U Benzodiazepines Scrn Negative ng/mL (Negative) 05/07/24 10:35 Urine Cocaine Screen Negative ng/mL (Negative) 05/07/24 10:35 U Marijuana (THC) Screen Negative ng/mL (Negative) 05/07/24 10:35 Serum Ketones Negative (Negative) 05/07/24 06:56 Coronavirus (PCR) Negative (Negative) 05/07/24 06:59 Influenza A (PCR) Negative (Negative) 05/07/24 06:59 Influenza Type B (PCR) Negative (Negative) 05/07/24 06:59 RSV (PCR) Negative (Negative) 05/07/24 06:59 All radiology interpretation(s) finalized by discharge Discharge Plan Discharge Patient Disposition: Admitted As Inpatient Admit Provider: Lawrence Palacio Clinical Impression: Tachycardia, ESRD (end stage renal disease) on dialysis, Nausea and vomiting, Abdominal pain Condition: Stable Coding Level of Care Code ED Manager Of Clinical for Chuy Fitch
[2024-05-07 07:03] LABS: Basophils % 0.3 %; Eosinophils # 0.2 10^3/uL (0.0-0.8); Eosinophils % 2.2 %; Hematocrit 40.1 % (36-47); Lymphocytes # 0.2 10^3/uL (0.8-4.8); Lymphocytes % 2.1 %; Mean Corpuscular HGB Conc 32.7 g/dL (30-55); Mean Corpuscular Hemoglobin 33.1 pg (27-33); Mean Corpuscular Volume 101.3 fl (85-98); Mean Platelet Volume 9.7 fL (7.4-10.4); Monocytes # 0.4 10^3/uL (0.2-0.9); Monocytes % 3.9 %; Neutrophils # 8.79 10^3/uL (1.8-7.7); Neutrophils % 91.2 %; Nucleated Red Blood Cells % 0 %; Platelet Count 141 10^3/cmm (157-399); Red Blood Count 3.96 10^6/uL (3.85-5.65); Red Cell Distribution Width 13.4 % (12.1-15.1); White Blood Count 9.64 10^3/uL (3.29-11.43)
--- NOTE | 2024-05-07 07:04 | CTR_ITS ---
PROCEDURE INFORMATION: Exam: CT Abdomen And Pelvis Without Contrast Exam date and time: 05/07/2024 7:19 AM Age: 48 years old Clinical indication: Abdominal pain; Generalized; Prior surgery; Surgery date: 6+ months; Surgery type: Hyst TECHNIQUE: Imaging protocol: Computed tomography of the abdomen and pelvis without contrast. Radiation optimization: All CT scans at this facility use at least one of these dose optimization techniques: automated exposure control; mA and/or kV adjustment per patient size (includes targeted exams where dose is matched to clinical indication); or iterative reconstruction. COMPARISON: 1. CT bony pelvis [id number] 07/19/2020 8:[address] abdomen pelvis w con* [id number] 04/27/2020 8:26 PM COMPARISON MORE: CT chest abdpel w/*[id number] 01/11/2020 9:48 AM RADIATION DOSE METRICS: Total DLP (mGy-cm): 660.55 FINDINGS: Coronary arteries: Scattered coronary artery calcifications Diaphragm: Small hiatal hernia. Liver: Hepatic steatosis. Gallbladder and biliary ducts: Normal. No calcified stones. No ductal dilation. Pancreas: Normal. No ductal dilation. Spleen: Normal. No splenomegaly. Adrenal glands: Mild bilateral adrenal gland thickening without discrete nodule. Kidneys and ureters: Bilateral renal atrophy. Stomach and bowel: Cystic focus located of the posterior right rectal fascia measuring 2.7 x 1.5 cm (series 3, image 78). There are innumerable punctate hyperdensities within the large bowel. Decompressed stomach. Prominent jejunum measuring 2.7 cm. No evidence of obstruction. Appendix: No evidence of appendicitis. Intraperitoneal space: Unremarkable. No free air. No significant fluid collection. Vasculature: Right iliac stent. Lymph nodes: Unremarkable. No enlarged lymph nodes. Urinary bladder: Unremarkable as visualized. Reproductive: Status post hysterectomy. Bones/joints: Right total hip arthroplasty. Grade 1 anterior spondylolisthesis similar to prior in the setting of bilateral spondylolysis. Mild vertebral wedging of T12, similar to prior. Mixed density sclerotic region at the right sacrum, similar to prior. Healed left inferior pubic ramus fracture. Soft tissues: Unremarkable. CT/CT abdomen pelvis wo con [id number] IMPRESSION: 1. Nonspecific innumerable punctate hyperdensities throughout the large bowel. Query ingestion of hyperdense material. Prominent jejunal bowel loops without evidence of obstruction. 2. Nonspecific findings of a cystic focus at the posterior right rectal fascia. Differential includes tail gut duplication cyst although this is not been visualized on prior CTs. Consider further evaluation with MRI rectum.
[2024-05-07 07:21] LABS: Alanine Aminotransferase 23 U/L (0-33); Albumin Level 4.5 g/dL (3.5-5.2); Alkaline Phosphatase 109 U/L (35-105); Aspartate Amino Transferase 16 U/L (0-32); Blood Urea Nitrogen 47 mg/dL (6-20); Calcium 9.1 mg/dL (8.5-10.5); Carbon Dioxide 19 mmol/L (22-29); Chloride 102 mmol/L (98-107); Creatinine Clr Calc Pharmacy 15.6938; Globulin 2.2 g/dL (1.3-4.6); Glomerular Filtration Rate 9.6 mL/min (90-130); Glucose 242 mg/dL (65-115); Osmolality Calculated 314 mOsm/kg (285-295); Sodium 142 mmol/L (136-145); Total Bilirubin 0.5 mg/dL (0.15-1.2); Total Protein 6.7 g/dL (6.6-8.7); Troponin(5th) Baseline 36 ng/L (0-10)
[2024-05-07 07:52] LABS: Influenza A NEGATIVE (Negative); Influenza B NEGATIVE (Negative); Respiratory Syncytial Virus Ce NEGATIVE (Negative); SARS-CoV-2 PCR NEGATIVE (Negative)
--- NOTE | 2024-05-07 08:42 | ECG_ITS ---
[facility] Date: 2024-[facility]07 Pat Name: Bharati Anthony Department: Room: Gender: Female Pit Steward: : 1975 Requested By: Rafat Martinez Order Number: [id number] Dung MD: Hector Moe M.D. Measurements Intervals [place] Rate: 114 P: 67 NH: 140 QRS: -10 QRSD: 102 T: 120 QT: 370 QTc: 510 Interpretive Statements SINUS TACHYCARDIA POSSIBLE LEFT ATRIAL ENLARGEMENT [-0.1mV P-WAVE IN V1/V2] LEFT VENTRICULAR HYPERTROPHY AND ST-T CHANGE [VOLTAGE CRITERIA PLUS ST/T ABNORMALITY] Compared to ECG 05/07/2024 06:41:52 Myocardial infarct finding no longer present ST (T wave) deviation still present Electronically Signed On 05-07-2024 11:27:16 RISK CONTROL REPRESENTATIVE by Hector Moe M.D. [id number]
[2024-05-07 09:41] LABS: Troponin 5 2HR 34.38 ng/L (0-10)
[2024-05-07 09:42] LABS: Troponin 5 2HR Delta -1.62 ABS# (0-10)
[2024-05-07] MEDS: morphine 4 mg/mL SDV 1 mL IVP (10:55)
[2024-05-07] MEDS: sodium chloride 0.9% 1,000 ML 999 ML IV (10:55)
[2024-05-07] MEDS: ondansetron 2 mg/ML SDV 2 mL 4 MG IVP (10:55)
[2024-05-07] MEDS: ketorolac 30 mg/mL INJ IVP (10:56)
[2024-05-07 11:01] LABS: Amphetamines Screen Urine Negative (Negative); Barbiturates Screen Urine Negative (Negative); Benzodiazepines Screen Urine Negative (Negative); Cocaine Screen Urine Negative (Negative); Opiate Screen Urine Negative (Negative); PCP Screen Urine Negative (Negative); THC Screen Urine Negative (Negative)
[2024-05-07] MEDS: pantoprazole 40 mg SDV 80 MG IVP (11:37)
[2024-05-07 12:12] LABS: Lactic Sepsis W/Reflex 0.9 mmol/L (0.5-2.2)
[2024-05-07 12:36] LABS: ABG PCO2 34.4 mmHg (35-45); ABG PH Result 7.42 (7.35-7.45); Alveolar-Arterial Oxygen Gradi 2.9 mmHg (5-10); Arterial Blood Gas Hematocrit 40.1 % (37-47); Base Excess ABG -1.9 mmol/L (-2.0-2.0); Blood Gas Allen Test Pos; Blood Gas Operator Identificat gerca; Blood Gas Sample Site Radial, left; Blood Gas Sample Type Arterial; Carboxyhemoglobin 1.3 %THgb (0.4-20.1); HCO3 ABG 22.1 mmol/L (22-26); HGB O2 Sat 95.1 % (95-100); Ionized Calcium Level - ABG 1.1 mmol/L (1.1-1.4); Oxygen Device ROOM AIR; Oxygen Saturation ABG 97.3; PO2 ABG 85.3 mmHg (80.0-100.0); PO2 FiO2 Ratio Arterial Blood 406; Potassium Level - ABG 4.4 mmol/L (3.5-5.0); Total Hemoglobin 13.1 g/dL (12-16)
--- NOTE | 2024-05-07 12:42 | ECG_ITS ---
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: : 1975 Requested By: Rafat Martinez Order Number: [id number] Reading MD: DESTIN GUEVARA Measurements Intervals [place] Rate: 107 P: 61 NV: 135 QRS: -9 QRSD: 102 T: 117 QT: 375 QTc: 502 Interpretive Statements SINUS TACHYCARDIA POSSIBLE LEFT ATRIAL ENLARGEMENT [-0.1mV P-WAVE IN V1/V2] LEFT VENTRICULAR HYPERTROPHY AND ST-T CHANGE [VOLTAGE CRITERIA PLUS ST/T ABNORMALITY] Compared to ECG 05/07/2024 08:47:52 No significant changes Electronically Signed On 05-15-2024 23:58:00 AUTO SERVICE STATION ATTENDANT by DESTIN GUEVARA [email or web address]
--- NOTE | 2024-05-07 13:14 | PM.CONSULT ---
Providers/Reason For Consult Consulting Physician/Specialty*: rajan de leon md / telenephrology Reason for Consult*: ESRD care Requesting Physician: Dr Villalta Attending Physician: Lawrence Palacio Primary Care Provider: Herber Hussein MD History of Present Illness History of Present Illness Bharati Anthony is a 48 year old female h/o ESRD on HD MWF, HTN, DVT on eliquis, DM, Questionable h/o HFpEF. Pt is here w/ nasusea and vomiting snd weakness and abd pain. renal is cslled for ESRD care. Review of Systems Narrative: nausea, vomiting, and pain, poor appetite. no may, sob, fevrs, chills, diarrhea or urinary complaints Medications/Allergies Home Medications ?Medication ?Instructions ?Recorded ?Confirmed ?Last Taken ?Type Diabetic Shoes #1 ea 06/19/19 05/07/24 Unknown Rx acetaminophen 325 mg capsule 325 mg PO QID PRN Pain 06/19/19 05/07/24 05/17/20 History blood-glucose meter (OneTouch #1 ea 06/19/19 05/07/24 Unknown History UltraMini kit) pantoprazole 40 mg tablet,delayed 40 mg PO BID 06/19/19 05/07/24 03/21/24 History release sodium bicarbonate 650 mg tablet 650 mg PO DAILY PRN Dialysis 09/18/19 05/07/24 01/20/23 History apixaban 2.5 mg tablet (Eliquis) 2.5 mg PO BID 12/11/19 05/07/24 03/21/24 History alprazolam 0.25 mg tablet (Xanax) 0.25 mg PO BID PRN Anxiety 04/01/20 05/07/24 01/20/23 History diphenhydramine HCl 25 mg capsule 25 mg PO TID PRN Itching 04/01/20 05/07/24 05/17/20 History (Benadryl) hydralazine 25 mg tablet 25 mg PO TID 01/21/23 05/07/24 03/21/24 History melatonin 10 mg capsule 10 mg PO BEDTIME 01/21/23 05/07/24 03/21/24 History ondansetron HCl 4 mg tablet 4 mg PO Q8H PRN Nausea 01/21/23 05/07/24 Unknown History ropinirole 0.25 mg tablet 0.25 mg PO BEDTIME 01/21/23 05/07/24 03/21/24 History sevelamer carbonate 800 mg tablet 1,600 mg PO TID 01/21/23 05/07/24 03/21/24 History vit B,C-folic ac 800 mcg-zinc 12.5 1 tab PO DAILY 01/21/23 05/07/24 03/21/24 History mg-selen-D3 2,000 unit-vit E tablet (RenaPlex-D) carvedilol 25 mg tablet 25 mg PO BID 06/04/23 05/07/24 03/21/24 History difelikefalin 50 mcg/mL 50 mcg IV QMWF 06/04/23 05/07/24 03/21/24 History intravenous solution (Korsuva) semaglutide 1 mg/dose (4 mg/3 mL) 1 mg SUBCUT Q7D 06/04/23 05/07/24 03/17/24 History subcutaneous pen injector (Ozempic) amlodipine 10 mg tablet 10 mg PO DAILY 03/22/24 05/07/24 03/21/24 History citalopram 20 mg tablet 20 mg PO DAILY 03/22/24 05/07/24 03/21/24 History ondansetron 8 mg disintegrating 8 mg PO Q6H #14 tabs 03/22/24 05/07/24 Unknown Rx tablet promethazine 25 mg rectal 25 mg [place] Q6H PRN nausea and 03/22/24 05/07/24 Unknown Rx suppository vomiting #12 ea Allergies Allergy/AdvReac Type Severity Reaction Status Date / Time sulfamethoxazole (From Allergy Severe ALGY-Rash Verified 03/22/24 11:20 Sulfamethoxazole-Trimethoprim) trimethoprim (From Allergy Severe ALGY-Rash Verified 03/22/24 11:20 Sulfamethoxazole-Trimethoprim) adhesive tape Allergy Unknown blisters Verified 03/22/24 11:20 Cephalosporins Allergy Unknown unknown Verified 03/22/24 11:20 doxycycline Allergy ADR-Vomitin Verified 03/22/24 11:20 g latex Allergy blisters Verified 03/22/24 11:20 PFSH Acute PFSH: Medical History Tachycardia Diabetes Deep vein thrombosis (DVT) during Chronic anticoagulation Squamous cell carcinoma of anal canal Diabetes mellitus End-stage renal disease Surgical History Status post surgery (05/19/20) Removal of peritoneal dialysis catheter Port-A-Cath in place S/P hemodialysis catheter insertion (01/09/20) Removed 11/18/2020 Peritoneal dialysis status H/O colonoscopy H/O hand surgery History of hip surgery History of hysterectomy Family History Other Cancer Diabetes Denies family history of Anesthesia complication Bleeding disorder Social History Smoking and tobacco/nicotine status: current every day tobacco/nicotine user Alcohol intake: never Substance/Drug Use: never Household members: family Marital status: Single Current occupational status: disabled Vitals/I&O/Wt Last Vital Signs Temp 97.5 F L 05/07/24 06:38 Pulse 106 H 05/07/24 12:45 Resp 14 05/07/24 12:45 BP 122/71 05/07/24 12:45 Pulse Ox 97 05/07/24 12:45 O2 Del Method Room Air 05/07/24 06:38 Weight last 48 hrs Weight 76 kg Physical Exam Narrative: comfortable in bed, NARD VSS heent- nc/a, eomi neck supple lungs clear b/l heart reg, + s1, s2 abdomen soft, + bs, NT ext no eddema, RT thigh AVG neuro a,a, o x 3 Data 05/07/24 06:56 05/07/24 06:56 A&P Assessment and plan (1) ESRD (end stage renal disease) on dialysis: 48 yr old female 1. n/v/abd pain per medicine -abnormal CT scan noted Nonspecific innumerable punctate hyperdensities throughout the large bowel. Query ingestion of hyperdense material. Prominent jejunal bowel loops without evidence of obstruction. Nonspecific findings of a cystic focus at the posterior right rectal fascia. Differential includes tail gut duplication cyst although this is not been visualized on prior CTs. Consider further evaluation with MRI rectum. consider GI or surgery consult 2. ESRD- cont HD. her pH is 7.42, her k is 4, bun 47. she was hypotensive on presentation to ER and wass intravascular depleted- hold HD till am 3. bp improved w/ fluids seen and examined using A/V equipment with the aid of a nurse patient consents to HD snd to telehealth visit Plan see above PDMP PDMP Reviewed: Not Reviewed Consult Attestations Medical Necessity Statement: n/v/abd pain per medicine Time Spent in Patient Care: Greater than 35 minutes (>than 50% of time spent in counselling and/or direct pt care on unit). Coding Level of Care Code Acute Code for Chg Fwd Diagnoses ESRD (end stage renal disease) on dialysis N18.6; Z99.2
[2024-05-07 13:19] LABS: Ketone (Acetest) Serum Negative (Negative)
[2024-05-07 13:27] LABS: Bilirubin Urine Negative (Negative); Blood Urine Negative (Negative); Glucose Urine UA 2+ (Normal); Ketones Urine Trace (Negative); Leukocyte Esterase Urine Negative (Negative); Nitrate Urine Negative (Negative); Protein Urine 3+ (Negative); Specific Gravity, Urine 1.016 (1.005-1.030); Urine Appearance Clear (CLEAR); Urine Color Yellow (Yellow); Urobilinogen Urine 0.2 mg/dL (Negative); pH Urine >=9.0 (5-7)
[2024-05-07 13:33] LABS: Add Urine Microscopic? YES; Bacteria Urine None Seen /hpf; Hyaline Casts Urine 0-4 /lpf; Squamous Epithelial Cell Urine 0-5 /hpf (0-5); WBC Urine 0-5 /hpf (0-5)
[2024-05-07 14:10] LABS: Uric Acid 5.4 mg/dL (2.4-5.7)
[2024-05-07 14:21] LABS: Hepatitis B Surface AB 728.1 (11.5-1000); Hepatitis B Surface Antigen Non-Reactive (Nonreactive)
[2024-05-07 14:22] LABS: Hepatitis C Virus Antibody Non-Reactive (Nonreactive)
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
[2024-05-07 15:13] LABS: Lipase 130 U/L (13-60)
[2024-05-07 16:41] LABS: Glucose Point of Care 137 mg/dL (70-110)
[2024-05-07] MEDS: pantoprazole DR 40 mg Tablet PO (16:53)
[2024-05-07] MEDS: enoxaparin 30 mg/0.3 mL Syringe SUBCUT (16:53)
[2024-05-08] VITALS (7 sets, daily range): BP systolic 112–147; BP diastolic 65–72; PULSE 94–106; RESP 14–17; TEMP 35–36.8; O2SAT 94–96
[2024-05-08 05:40] LABS: Basophils % 0.6 %; Eosinophils # 0.2 10^3/uL (0.0-0.8); Eosinophils % 4.7 %; Hematocrit 35.4 % (36-47); Lymphocytes # 0.6 10^3/uL (0.8-4.8); Lymphocytes % 17.4 %; Mean Corpuscular HGB Conc 31.4 g/dL (30-55); Mean Corpuscular Hemoglobin 32.5 pg (27-33); Mean Corpuscular Volume 103.5 fl (85-98); Mean Platelet Volume 9.8 fL (7.4-10.4); Monocytes # 0.3 10^3/uL (0.2-0.9); Monocytes % 8.6 %; Neutrophils # 2.32 10^3/uL (1.8-7.7); Neutrophils % 68.4 %; Nucleated Red Blood Cells % 0 %; Platelet Count 132 10^3/cmm (157-399); Red Blood Count 3.42 10^6/uL (3.85-5.65); Red Cell Distribution Width 13.8 % (12.1-15.1); White Blood Count 3.39 10^3/uL (3.29-11.43)
[2024-05-08 05:59] LABS: Alanine Aminotransferase 19 U/L (0-33); Albumin Level 3.9 g/dL (3.5-5.2); Alkaline Phosphatase 84 U/L (35-105); Anion Gap 19.1 (5-19); Aspartate Amino Transferase 17 U/L (0-32); Blood Urea Nitrogen 56 mg/dL (6-20); Calcium 8.8 mg/dL (8.5-10.5); Carbon Dioxide 23 mmol/L (22-29); Chloride 102 mmol/L (98-107); Creatinine Clr Calc Pharmacy 11.9989; Globulin 2.1 g/dL (1.3-4.6); Glucose 106 mg/dL (65-115); Magnesium 1.8 mg/dL (1.7-2.3); Osmolality Calculated 306 mOsm/kg (285-295); Phosphorus 5.2 mg/dL (2.5-4.5); Potassium 4.1 mmol/L (3.5-5.1); Sodium 140 mmol/L (136-145); Total Bilirubin 0.5 mg/dL (0.15-1.2)
[2024-05-08 06:15] LABS: 25 Hydroxy Vitamin D 32 ng/mL (30-100)
--- NOTE | 2024-05-08 06:54 | PC.HD ---
Electronic consent for dialysis signed by patient. Heparin 1000 units loading dose administered at 0625 via venous needle per assistant professor of surgery's orders.
--- NOTE | 2024-05-08 07:44 | PM.PN ---
Subjective Subjective: seen and examined on dialysis. feels better. no more n/v/f/c/may/d/abd pain Medications: Reviewed: Yes Medication Review Details: Current Medications Acetaminophen (Acetaminophen 325 Mg Tablet) 650 mg PO Q6H PRN PRN Reason: Mild/Mod Pain Or Temp >/= 101 Enoxaparin Sodium (Enoxaparin 30 Mg/0.3 Ml Syringe) 30 mg SUBCUT Q24H [facility] Last Admin: 05/07/24 16:53 Dose: 30 mg Albumin Human (Albumin) 12.5 gm in 50 mls @ 60 mls/hr IV PRN PRN PRN Reason: Hypotension and/or symptomatic Ondansetron HCl (Ondansetron 2 Mg/Ml Sdv 2 Ml) 4 mg IVP Q8H PRN PRN Reason: vomiting, or N/V if npo Pantoprazole Sodium (Pantoprazole Dr 40 Mg Tablet) 40 mg PO BID [facility] Last Admin: 05/07/24 16:53 Dose: 40 mg Vitals/I&O/Wt Last Vital Signs Temp 98.1 F 05/08/24 06:53 Pulse 100 05/08/24 06:53 Resp 16 05/08/24 06:53 BP 147/71 05/08/24 06:53 Pulse Ox 96 05/08/24 04:00 O2 Del Method Room Air 05/08/24 04:00 05/07/24 05/08/24 05/08/24 22:59 06:59 14:59 Intake Total 1000 / 1000 780 / 1780 Balance 1000 / 1000 780 / 1780 Weight last 48 hrs Weight 76.612 kg Weight 75.977 kg Weight 76 kg Physical Exam Narrative: comfortable in bed, NARD VSS heent- nc/a, eomi neck supple lungs clear b/l heart reg, + s1, s2 abdomen soft, + bs, NT ext no eddema, RT thigh AVG neuro a,a, o x 3 Data 05/08/24 05:00 05/08/24 05:00 A&P Assessment and plan (1) ESRD (end stage renal disease) on dialysis: 48 yr old female 1. n/v/abd pain per medicine -abnormal CT scan noted Nonspecific innumerable punctate hyperdensities throughout the large bowel. Query ingestion of hyperdense material. Prominent jejunal bowel loops without evidence of obstruction. Nonspecific findings of a cystic focus at the posterior right rectal fascia. Differential includes tail gut duplication cyst although this is not been visualized on prior CTs. Consider further evaluation with MRI rectum. per hospitalist 2. ESRD- HD today. she is off schedule. 3. bp low side- aiming only 1 liter fluid removal on dialysis 4. repeat urinalysis after dialysis to ensure ketones have resolved seen and examined using A/V equipment with the aid of a nurse patient consents to HD snd to telehealth visit Plan see above PDMP PDMP Reviewed: Not Reviewed Attestations Medical Necessity Statement*: per hospitalist Time Spent in Patient Care: 16 - 35 minutes (>than 50% of time spent in counselling and/or direct pt care on unit). Coding Level of Care Code Acute Code for Chg Fwd Diagnoses ESRD (end stage renal disease) on dialysis N18.6; Z99.2
--- NOTE | 2024-05-08 09:23 | PC.CHAP ---
Pastoral Care Encounter/Spiritual Assessment Type of Contact [] Declined cupola man visit [] Patient/Family/Request visit [] Outpatient visit [] Follow-up visit [] Physician referral [] Code/Alert [] Routine visit [] Staff referral [] Actively dying [] Patient sleeping [] Family support [] [x] Out of room [] Palliative care [] [] Receiving care in room [] Pre-surgical visit [] Trauma [] Long length of stay [] ICU visit [] Other: Relational/Emotional Strength [] Patient feels connected with others/family/visitors/staff [] Distress [] Loneliness/isolation [] Abandonment Spirituality of Patient [] Person of Elsie [] Attends Synagogue of their Elsie [] Believes in Prayer [] Reads Bible or Samaritan materials [] There are Spiritual issues to be addressed Service Aide Interventions [] Prayer [] Active listening [] Non-anxious presence [] Spiritual/emotional support [] Crisis/trauma care [] Spiritual counseling [] Bereavement support [] Provided bereavement packet [] Provided Bible/devotional materials [] Provided toy/stuffed animal, coloring book to patient or family member [] Provided Communion [] Anointing/[place]erson [] Salvation [] Completed spiritual assessment [] Other: Impact on Illness or Injury [] Angry [] Fearful [] Anxious [] Often cries [] Exhaustion [] Unable to work [] Unable to attend baptism [] Unable to walk/stand [] Unable to read [] Unable to drive [] Unable to eat/drink [] Unable to sleep [] Unable to be with family [] Patient intubated [] Other: Summary Time spent with patient
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
== END 2024-05-08 13:15 | disposition home or self-care (01) | DRG 391 ==
LOC: ER 07:01 → ER IP 11:31 → MEDSURG 14:56
PROVIDERS: Internal Medicine Nephrology; Admitting Provider Internal Medicine; Emergency Provider Family Medicine; PCP Family Medicine; Visit Provider Internal Medicine
DX: R11.2 Nausea with vomiting, unspecified (principal); N18.6 End stage renal disease; E11.22 Type 2 diabetes mellitus with diabetic chronic kidney disease; Z99.2 Dependence on renal dialysis; R10.9 Unspecified abdominal pain; Z86.718 Personal history of other venous thrombosis and embolism; Z85.048 Personal history of other malignant neoplasm of rectum, rectosigmoid junction, and anus; R00.0 Tachycardia, unspecified; Z79.01 Long term (current) use of anticoagulants; F17.200 Nicotine dependence, unspecified, uncomplicated; K62.89 Other specified diseases of anus and rectum
CPT/HCPCS: 36415; 36416; 36600; 71045; 74176; 80051; 80053; 80306; 81001; 82009; 82306; 82330; 82805; 82962; 83605; 83690; 83735; 84100; 84484; 84550; 85025; 86706; 86803; 87340; 87637; 90935; 93005; 96372; 96374; 96375; 99285; J1650; J1885; J2270; J2405; J2470; J7030

== ENCOUNTER 2024-06-07 08:50 | Emergency (ER) | payer MEDICARE, MEDICAID, SELFPAY ==
--- NOTE | 2024-06-07 08:55 | XR_ITS ---
WS: [id number] Right hip, 2 views, AP pelvis, 06/07/2024 Clinical Data: Trauma Comparison: Pelvis, 08/06/2020 Findings: The right hip arthroplasty remains in the same position. No periprosthetic fractures or loosening is seen. The left hip shows no fractures. The pelvis is intact without fracture. There is a right iliac artery stent. There are surgical clips in the right inguinal region. The soft tissues are normal. XR/XR hip RT 2-3V wo/w pel* [id number] Impression: 1. Negative for hip or pelvic fracture. 2. Stable right hip arthroplasty.
[2024-06-07 08:57] VITALS: BP 157/83; PULSE 101; RESP 18; TEMP 36.8; O2SAT 97; BMI 23.3
[2024-06-07 09:00] VITALS: PULSE 96; O2SAT 98
--- NOTE | 2024-06-07 09:05 | W.ED.EXTPRO ---
HPI - Extremity Problem General: Chief complaint: Extremity Injury, Lower Stated complaint: fall - right hip pain Time Seen by Provider: 06/07/24 08:55 History of Present Illness: 48-year-old female presents to the emergency room with complaint of right hip pain. She had a mechanical ground-level fall when she slipped on a rug walking back into her home last night. She has been able to stand since this happened but has discomfort she refers the pain to the groin crease. She denies any other injuries did not hit her head not hurt her neck or her back there is no loss of consciousness. Associated symptoms: Deny chest pain, fever(s) or rash Related Data Home Medications ?Medication ?Instructions ?Recorded ?Confirmed acetaminophen 325 mg capsule 325 mg PO QID PRN Pain 06/19/19 06/07/24 blood-glucose meter (OneTouch #1 ea 06/19/19 06/07/24 UltraMini kit) pantoprazole 40 mg tablet,delayed 40 mg PO BID 06/19/19 06/07/24 release sodium bicarbonate 650 mg tablet 650 mg PO DAILY PRN Dialysis 09/18/19 06/07/24 apixaban 2.5 mg tablet (Eliquis) 2.5 mg PO BID 12/11/19 06/07/24 alprazolam 0.25 mg tablet (Xanax) 0.25 mg PO BID PRN Anxiety 04/01/20 06/07/24 diphenhydramine HCl 25 mg capsule 25 mg PO TID PRN Itching 04/01/20 06/07/24 (Benadryl) hydralazine 25 mg tablet 25 mg PO TID 01/21/23 06/07/24 melatonin 10 mg capsule 10 mg PO BEDTIME 01/21/23 06/07/24 ondansetron HCl 4 mg tablet 4 mg PO Q8H PRN Nausea 01/21/23 06/07/24 ropinirole 0.25 mg tablet 0.25 mg PO BEDTIME 01/21/23 06/07/24 sevelamer carbonate 800 mg tablet 1,600 mg PO TID 01/21/23 06/07/24 vit B,C-folic ac 800 mcg-zinc 12.5 1 tab PO DAILY 01/21/23 06/07/24 mg-selen-D3 2,000 unit-vit E tablet (RenaPlex-D) carvedilol 25 mg tablet 25 mg PO BID 06/04/23 06/07/24 difelikefalin 50 mcg/mL 50 mcg IV QMWF 06/04/23 06/07/24 intravenous solution (Korsuva) semaglutide 1 mg/dose (4 mg/3 mL) 1 mg SUBCUT Q7D 06/04/23 06/07/24 subcutaneous pen injector (Ozempic) Held on 05/08/24. Instructions: Resume on 05/11/24. amlodipine 10 mg tablet 10 mg PO DAILY 03/22/24 06/07/24 citalopram 20 mg tablet 20 mg PO DAILY 03/22/24 06/07/24 promethazine 25 mg tablet 25 mg PO Q4H PRN Nausea And 06/07/24 06/07/24 Vomiting Previous Rx's ?Medication ?Instructions ?Recorded Diabetic Shoes #1 ea 06/19/19 hydrocodone 5 mg-acetaminophen 325 1 tab PO Q6H PRN pain #20 tabs 06/07/24 mg tablet Allergies Allergy/AdvReac Type Severity Reaction Status Date / Time sulfamethoxazole (From Allergy Severe ALGY-Rash Verified 03/22/24 11:20 Sulfamethoxazole-Trimethoprim) trimethoprim (From Allergy Severe ALGY-Rash Verified 03/22/24 11:20 Sulfamethoxazole-Trimethoprim) adhesive tape Allergy Unknown blisters Verified 03/22/24 11:20 Cephalosporins Allergy Unknown unknown Verified 03/22/24 11:20 doxycycline Allergy ADR-Vomitin Verified 03/22/24 11:20 g latex Allergy blisters Verified 03/22/24 11:20 Review of Systems Const: Denies: fever(s) or chills Card: Denies: chest pain Resp: Denies: dyspnea GI: Denies: abdominal pain : Denies: dysuria, urinary frequency or urinary urgency Musc: Denies: neck pain or back pain Skin/Breast: Denies: rash PFSH ED PFSH: Medical History Tachycardia Diabetes Deep vein thrombosis (DVT) during Chronic anticoagulation Squamous cell carcinoma of anal canal Diabetes mellitus End-stage renal disease Surgical History Status post surgery (05/19/20) Removal of peritoneal dialysis catheter Port-A-Cath in place S/P hemodialysis catheter insertion (01/09/20) Removed 11/18/2020 Peritoneal dialysis status H/O colonoscopy H/O hand surgery History of hip surgery History of hysterectomy Family History Other Cancer Diabetes Denies family history of Anesthesia complication Bleeding disorder Social History Smoking and tobacco/nicotine status: current every day tobacco/nicotine user Alcohol intake: never Substance/Drug Use: never Household members: family Marital status: Single Current occupational status: disabled Physical Exam Const: COMMON NORMALS: no acute distress GENERAL APPEARANCE: cooperative and comfortable ORIENTATION/CONSCIOUSNESS: Yes awake, Yes oriented to person, Yes oriented to place and Yes oriented to time HENMT: COMMON NORMALS: normocephalic, atraumatic and hearing grossly normal bilaterally HEAD & SCALP: normocephalic and atraumatic Resp: COMMON NORMALS: normal respiratory effort, No retractions, No use of accessory muscles and clear to auscultation bilaterally AUSCULTATION: clear to auscultation bilaterally Cardio: COMMON NORMALS: regular rate, regular rhythm and No murmurs present (Cardio) RATE: regular rate RHYTHM: regular rhythm GI: COMMON NORMALS: Soft to palpation and No hepatosplenomegaly present AUSCULTATION: Yes normoactive bowel sounds PALPATION: Yes Soft to palpation, No Tenderness to palpation present (GI), No Guarding due to palpation present (GI) and Yes No hepatosplenomegaly present Extremity: COMMON NORMALS: normal to inspection, capillary refill normal, no clubbing, cyanosis or edema, no calf tenderness and no pedal edema Neuro: SENSORIUM/ORIENTATION: Yes oriented to person, Yes oriented to place and Yes oriented to time Skin: COMMON NORMALS: no rashes or lesions noted GENERAL SKIN EXAM: no rashes or lesions noted Course Vital Signs: Vital signs: Vital Signs Temperature 98.2 F 06/07/24 08:57 Pulse Rate 91 06/07/24 12:57 Respiratory Rate 18 06/07/24 08:57 Blood Pressure 157/79 06/07/24 12:57 Pulse Oximetry 96 06/07/24 12:57 Oxygen Delivery Me thod Room Air 06/07/24 08:57 MDM - Extremity (Nontraumatic) Medical Decision Making Plain films it felt there was likely a pubic rami fracture this was confirmed on the CT. Discharge patient home with a walker and pain medications. Discussed the findings with her. PT consulted to review use of walker with her in the emergency room. Follow-up to the Ortho clinic. Medical Records I reviewed the patient's medical records. Lab Data Radiology Impressions Hip/Pelvis X-Ray 06/07/24 08:55 Impression: 1. Negative for hip or pelvic fracture. 2. Stable right hip arthroplasty. Pelvis CT 06/07/24 10:30 IMPRESSION: 1. Acute nondisplaced RIGHT inferior pubic rami fracture. Fracture is new since 05/07/2024. 2. Status post RIGHT hip arthroplasty with no acute fracture. 3. Nonacute LEFT inferior pubic rami fracture. All radiology interpretation(s) finalized by discharge Discharge Plan Discharge Patient Disposition: Home Clinical Impression: Fracture of right inferior pubic ramus Condition: Stable Prescriptions: New hydrocodone-acetaminophen 5-325 mg tablet 1 tab PO Q6H PRN (Reason: pain) Qty: 20 0RF No Action alprazolam [Xanax] 0.25 mg tablet 0.25 mg PO BID PRN (Reason: Anxiety) diphenhydramine HCl [Benadryl] 25 mg capsule 25 mg PO TID PRN (Reason: Itching) acetaminophen 325 mg capsule 325 mg PO QID PRN (Reason: Pain) pantoprazole 40 mg tablet,delayed release (DR/EC) 40 mg PO BID (DME) blood-glucose meter [OneTouch UltraMini] Kit See Rx Instructions .ROUTE .MEDSUPPLY Qty: 1 Rx Instructions: As directed (DME) Diabetic Shoes Qty: 1 0RF Rx Instructions: As directed sodium bicarbonate 650 mg tablet 650 mg PO DAILY PRN (Reason: Dialysis) Eliquis 2.5 mg Tablet 2.5 mg PO BID ondansetron HCl 4 mg Tablet 4 mg PO Q8H PRN (Reason: Nausea) hydralazine 25 mg tablet 25 mg PO TID ropinirole 0.25 mg Tablet 0.25 mg PO BEDTIME sevelamer carbonate 800 mg tablet 1,600 mg PO TID melatonin 10 mg Capsule 10 mg PO BEDTIME RenaPlex-D 800 mcg-12.5 mg -2,000 unit Tablet 1 tab PO DAILY promethazine 25 mg tablet 25 mg PO Q4H PRN (Reason: Nausea And Vomiting) carvedilol 25 mg tablet 25 mg PO BID Ozempic 1 mg/dose (4 mg/3 mL) pen injector 1 mg SUBCUT Q7D Rx Instructions: on Tuesday Korsuva 50 mcg/mL Solution 50 mcg IV QMWF amlodipine 10 mg tablet 10 mg PO DAILY citalopram 20 mg tablet 20 mg PO DAILY Discharge Orders: Discharge ED (Routine); Ordered 06/07/24 Ordered By: Rafat Samuel Other Ambulatory Orders: DME: Walker (Order) Location: None Selected Ordered By: Rafat Samuel Referrals: Herber Hussein MD [Primary Care Provider] - Discharge Diet: Usual diet Discharge Activity: Increase activity as tolerated Patient Instructions: Opioid Safety, Pain Management Activity Restrictions/Additional Instructions: Thank you for choosing [facility] for your healthcare needs today. It is very important that you follow up as instructed or that you return to the Emergency Department should you have concerns or if your condition changes or worsens in any way. You were seen in the emergency room with a complaint of pelvic pain evaluation that showed a right inferior pubic rami fracture. These are not treated surgically you will need to use a walker for the next few weeks I had COVID increase your activity as you are able. Case management make arrangements for you to follow-up with orthopedics. You can use the pain medicine prescribed as needed. Print Language: Yoruba Coding Level of Care Code ED [employer] Consultant for Chuy Fitch
[2024-06-07] MEDS: acetaminophen 325 mg Tablet 650 MG PO (10:26)
--- NOTE | 2024-06-07 10:30 | CT_ITS ---
WS: [id number] CT PELVIS NONCONTRAST HISTORY: Trauma TECHNIQUE: Contiguous imaging is performed of the pelvis without contrast. Coronal and sagittal reformats are reviewed. All CT scans at [facility] use at least one of these dose optimization techniques: automated exposure control; mA and/or kV adjustment per patient size (includes targeted exams where dose is matched to clinical indication); or iterative reconstruction. DLP: 348.33 mGy.cm COMPARISON: Radiograph 06/07/2024, prior CT 05/07/2024 Status post RIGHT hip arthroplasty. The entire arthroplasty stem is not included on the CT. Radiographs obtained on the same day demonstrated the distal prosthesis component. No fracture was identified. No acute RIGHT hip fracture identified. Vertically oriented screw through the superior RIGHT acetabulum extends lateral to the ilium. No interval change. Acute nondisplaced RIGHT inferior pubic rami fracture. This fracture is new since 05/07/2024. Healing LEFT inferior pubic rami fracture. No sacral fracture. RIGHT external iliac artery stent. Arterial vascular calcifications. CT/CT pelvis wo con [id number] IMPRESSION: 1. Acute nondisplaced RIGHT inferior pubic rami fracture. Fracture is new sinc e 05/07/2024. 2. Status post RIGHT hip arthroplasty with no acute fracture. 3. Nonacute LEFT inferior pubic rami fracture.
[2024-06-07 10:59] VITALS: PULSE 94; O2SAT 98
[2024-06-07 12:57] VITALS: BP 157/79; PULSE 91; O2SAT 96
--- NOTE | 2024-06-08 07:07 | DCPLANNER ---
messaged ortho for er f/u
== END 2024-06-07 12:58 | disposition home or self-care (01) ==
PROVIDERS: Emergency Provider Family Medicine; PCP Family Medicine
DX: S32.591A Other specified fracture of right pubis, initial encounter for closed fracture (principal); Z79.01 Long term (current) use of anticoagulants; Z72.0 Tobacco use; E11.22 Type 2 diabetes mellitus with diabetic chronic kidney disease; N18.6 End stage renal disease; W19.XXXA Unspecified fall, initial encounter
CPT/HCPCS: 72192; 73502; 97161; 99284; J9999

== ENCOUNTER → 2024-06-13 14:57 | Outpatient (BNVA) | payer MEDICARE, MEDICAID, SELFPAY | PROVIDERS: PCP Family Medicine; Visit Provider Nurse Practitioner | DX: S32.9XXA Fracture of unspecified parts of lumbosacral spine and pelvis, initial encounter for closed fracture (principal); S32.591A Other specified fracture of right pubis, initial encounter for closed fracture; X58.XXXA Exposure to other specified factors, initial encounter; Z96.641 Presence of right artificial hip joint | CPT/HCPCS: 72190; 99204 ==

== ENCOUNTER 2024-07-31 07:34 | Emergency (ER) | payer MEDICARE, MEDICAID, SELFPAY ==
[2024-07-31 07:41] VITALS: BP 119/58; PULSE 96; RESP 18; TEMP 36.8; O2SAT 93; BMI 23.6
--- NOTE | 2024-07-31 07:53 | XR_ITS ---
WS: [id number] Exam: XR chest 1V portable [id number] Date/Time of Exam: 07/31/2024 8:02 AM Reason For Exam: dyspnea/cough Comparison 05/07/2024. The lungs are fully expanded and clear. Cardiomediastinal silhouette is unremarkable for technique. A LEFT subclavian port ends in the lower one third of the SVC. Bony structures are intact. No pleural effusion. XR/XR chest 1V portable [id number] IMPRESSION: 1. No acute cardiopulmonary finding.
--- NOTE | 2024-07-31 07:53 | ECG_ITS ---
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
--- NOTE | 2024-07-31 08:04 | W.ED.WEAKNES ---
HPI - Weakness General: Chief complaint: Weakness Stated complaint: fall Time Seen by Provider: 07/31/24 07:53 History of Present Illness: 49-year-old female who presents to the emergency room with report of fall and weakness. Patient has a history of end-stage renal disease on dialysis she went to take a bath last night could not get out of the bathtub evidently she stayed in the bathtub throughout the night and called for help to get her out this morning. She states she feels very weak. She gets dialysis on Tuesday and Tuesday. She did get her dialysis yesterday. She tells me she does still make urine Dr. Hussein her primary care doctor recent prescribed her amoxicillin for a bladder infection she also tells me she is getting vancomycin at dialysis whenever she goes there but she is uncertain as to why that was prescribed cannot tell me a specific infection. She does not have any abdominal pain right now and she denies any recent trauma or falls no chest pain. Associated symptoms: Denies chest pain, chills, dysuria or fever(s) Review of Systems Const: Denies: fever(s) or chills Card: Denies: chest pain Resp: Denies: dyspnea GI: Denies: abdominal pain : Denies: dysuria, urinary frequency or urinary urgency Musc: Denies: neck pain or back pain Skin/Breast: Denies: rash PFSH ED PFSH: Medical History Tachycardia Diabetes Deep vein thrombosis (DVT) during Chronic anticoagulation Squamous cell carcinoma of anal canal Diabetes mellitus End-stage renal disease Surgical History Status post surgery (05/19/20) Removal of peritoneal dialysis catheter Port-A-Cath in place S/P hemodialysis catheter insertion (01/09/20) Removed 11/18/2020 Peritoneal dialysis status H/O colonoscopy H/O hand surgery History of hip surgery History of hysterectomy Family History Other Cancer Diabetes Denies family history of Anesthesia complication Bleeding disorder Social History Smoking and tobacco/nicotine status: current every day tobacco/nicotine user Alcohol intake: never Substance/Drug Use: never Household members: family Marital status: Single Current occupational status: disabled Physical Exam Const: COMMON NORMALS: no acute distress GENERAL APPEARANCE: cooperative and comfortable ORIENTATION/CONSCIOUSNESS: Yes awake, Yes oriented to person, Yes oriented to place and Yes oriented to time HENMT: COMMON NORMALS: normocephalic, atraumatic and hearing grossly normal bilaterally HEAD & SCALP: normocephalic and atraumatic Resp: COMMON NORMALS: normal respiratory effort, No retractions, No use of accessory muscles and clear to auscultation bilaterally AUSCULTATION: clear to auscultation bilaterally Cardio: COMMON NORMALS: regular rate, regular rhythm and No murmurs present (Cardio) RATE: regular rate RHYTHM: regular rhythm GI: COMMON NORMALS: Soft to palpation and No hepatosplenomegaly present AUSCULTATION: Yes normoactive bowel sounds PALPATION: Yes Soft to palpation, No Tenderness to palpation present (GI), No Guarding due to palpation present (GI) and Yes No hepatosplenomegaly present Extremity: COMMON NORMALS: normal to inspection, capillary refill normal, no clubbing, cyanosis or edema, no calf tenderness and no pedal edema Neuro: SENSORIUM/ORIENTATION: Yes oriented to person, Yes oriented to place and Yes oriented to time Skin: COMMON NORMALS: no rashes or lesions noted GENERAL SKIN EXAM: no rashes or lesions noted Course Vital Signs: Vital signs: Vital Signs Temperature 98.2 F 07/31/24 07:41 Pulse Rate 91 07/31/24 12:13 Respiratory Rate 16 07/31/24 12:13 Blood Pressure 121/58 07/31/24 12:13 Pulse Oximetry 93 07/31/24 12:13 Oxygen Delivery Me thod Room Air 07/31/24 10:11 MDM - Weakness Medical Decision Making Labs and imaging reviewed. Patient does states she is feeling better she has a pancytopenia her white count is low her hemoglobin is low and her platelets are at 88. She does not have a fever at this time. The pressure has been stable. Mild hyponatremia and hypokalemia consistent with renal disease. Creatinine Is approximately at her baseline. Suspect her symptoms were due to from tension. She was in the bathtub. She is better now. She does need her pancytopenia workup will refer her to hematology. Should follow-up with her primary care doctor within the next 5 to 7 days for repeat labs Medical Records I reviewed the patient's medical records. Lab Data I reviewed the patient's lab results. 07/31/24 07:52 07/31/24 07:52 Radiology Impressions Chest X-Ray 07/31/24 07:53 IMPRESSION: 1. No acute cardiopulmonary finding. Abdomen/Pelvis CT 07/31/24 10:02 IMPRESSION: 1. No acute abdominal or pelvic abnormalities identified. 2. No ascites or adenopathy. 3. No renal obstruction. 4. Mild bilateral renal atrophy. 5. Spleen is top normal size just to slightly enlarged. 6. No GI tract obstruction. Laboratory Results WBC 1.96 10^3/uL (3.29-11.43) L 07/31/24 07:52 RBC 2.61 10^6/uL (3.85-5.65) L 07/31/24 07:52 Hgb 8.70 g/dL (11.27-16.99) L 07/31/24 07:52 Hct 26.4 % (36-47) L 07/31/24 07:52 MCV 101.1 fl (85-98) H 07/31/24 07:52 MCH 33.3 pg (27-33) H 07/31/24 07:52 MCHC 33.0 g/dL (30-55) 07/31/24 07:52 RDW 15.9 % (12.1-15.1) H 07/31/24 07:52 Plt Count 88 10^3/cmm (157-399) L 07/31/24 07:52 MPV 10.6 fL (7.4-10.4) H 07/31/24 07:52 Neut % (Auto) 58.7 % 07/31/24 07:52 Lymph % (Auto) 30.1 % 07/31/24 07:52 Wayne % (Auto) 9.2 % 07/31/24 07:52 Eos % (Auto) 0.0 % 07/31/24 07:52 Baso % (Auto) 0.5 % 07/31/24 07:52 Neut # (Auto) 1.15 10^3/uL (1.8-7.7) L 07/31/24 07:52 Lymph # (Auto) 0.6 10^3/uL (0.8-4.8) L 07/31/24 07:52 Wayne # (Auto) 0.2 10^3/uL (0.2-0.9) 07/31/24 07:52 Eos # (Auto) 0.0 10^3/uL (0.0-0.8) 07/31/24 07:52 Baso # (Auto) 0.0 10^3/uL (0.0-0.1) 07/31/24 07:52 Nucleated RBC % (auto) 0 % 07/31/24 07:52 Nucleated RBCs # 0.0 /100WBC 07/31/24 07:52 Sodium 135 mmol/L (136-145) L 07/31/24 07:52 Potassium 3.3 mmol/L (3.5-5.1) L 07/31/24 07:52 Chloride 93 mmol/L (98-107) L 07/31/24 07:52 Carbon Dioxide 26 mmol/L (22-29) 07/31/24 07:52 Anion Gap 19.3 (5-19) H 07/31/24 07:52 BUN 24 mg/dL (6-20) H 07/31/24 07:52 Creatinine 5.1 mg/dL (0.5-0.9) H 07/31/24 07:52 GFR Calculation 9.0 mL/min (90-130) L 07/31/24 07:52 Glucose 103 mg/dL (65-115) 07/31/24 07:52 Calculated Osmolality 284 mOsm/kg (285-295) L 07/31/24 07:52 Calcium 8.6 mg/dL (8.5-10.5) 07/31/24 07:52 Total Bilirubin 0.7 mg/dL (0.15-1.2) 07/31/24 07:52 AST 61 U/L (0-32) H 07/31/24 07:52 ALT 49 U/L (0-33) H 07/31/24 07:52 Alkaline Phosphatase 104 U/L (35-105) 07/31/24 07:52 Total Protein 6.6 g/dL (6.6-8.7) 07/31/24 07:52 Albumin 3.9 g/dL (3.5-5.2) 07/31/24 07:52 Globulin 2.7 g/dL (1.3-4.6) 07/31/24 07:52 Urine Color Yellow (Yellow) 07/31/24 09:44 Urine Appearance Clear (CLEAR) 07/31/24 09:44 Urine pH 8.5 (5-7) A 07/31/24 09:44 Ur Specific [place] 1.007 (1.005-1.030) 07/31/24 09:44 Urine Protein 2+ (Negative) A 07/31/24 09:44 Urine Glucose (UA) Trace (Normal) H 07/31/24 09:44 Urine Ketones Negative (Negative) 07/31/24 09:44 Urine Blood Trace (Negative) A 07/31/24 09:44 Urine Nitrate Negative (Negative) 07/31/24 09:44 Urine Bilirubin Negative (Negative) 07/31/24 09:44 Urine Urobilinogen 0.2 mg/dL (Negative) 07/31/24 09:44 Ur Leukocyte Esterase Negative (Negative) 07/31/24 09:44 Urine RBC 0-2 /hpf (0-2) 07/31/24 09:44 Urine WBC 0-5 /hpf (0-5) 07/31/24 09:44 Ur Squamous Epith Cells 0-5 /hpf (0-5) 07/31/24 09:44 Amorphous Sediment Not Reportable 07/31/24 09:44 Urine Bacteria None seen /hpf (NONE) 07/31/24 09:44 Hyaline Casts 0.40 /lpf 07/31/24 09:44 All radiology interpretation(s) finalized by discharge Discharge Plan Discharge Patient Disposition: Home Clinical Impression: ESRD (end stage renal disease) on dialysis, Anemia, Weakness Condition: Stable Prescriptions: No Action alprazolam [Xanax] 0.25 mg tablet 0.25 mg PO BID PRN (Reason: Anxiety) diphenhydramine HCl [Benadryl] 25 mg capsule 25 mg PO TID PRN (Reason: Itching) acetaminophen 325 mg capsule 325 mg PO QID PRN (Reason: Pain) pantoprazole 40 mg tablet,delayed release (DR/EC) 40 mg PO BID sodium bicarbonate 650 mg tablet 650 mg PO DAILY PRN (Reason: Dialysis) Eliquis 2.5 mg Tablet 2.5 mg PO BID ondansetron HCl 4 mg Tablet 4 mg PO Q8H PRN (Reason: Nausea) hydralazine 25 mg tablet 25 mg PO TID ropinirole 0.25 mg Tablet 0.25 mg PO BEDTIME sevelamer carbonate 800 mg tablet 1,600 mg PO TID melatonin 10 mg Capsule 10 mg PO BEDTIME RenaPlex-D 800 mcg-12.5 mg -2,000 unit Tablet 1 tab PO DAILY promethazine 25 mg tablet 25 mg PO Q4H PRN (Reason: Nausea And Vomiting) amoxicillin 500 mg capsule 500 mg PO BID carvedilol 25 mg tablet 25 mg PO BID Ozempic 1 mg/dose (4 mg/3 mL) pen injector 1 mg SUBCUT Q7D Rx Instructions: on Tuesday amlodipine 10 mg tablet 10 mg PO DAILY citalopram 20 mg tablet 20 mg PO DAILY Discharge Orders: Discharge ED (Routine); Ordered 07/31/24 Ordered By: Rafat Samuel Referrals: Herber Hussein MD [Primary Care Provider, Family Practice] Discharge Diet: Usual diet Discharge Activity: Increase activity as tolerated Patient Instructions: Opioid Safety, Pain Management Activity Restrictions/Additional Instructions: Thank you for choosing [facility] for your healthcare needs today. It is very important that you follow up as instructed or that you return to the Emergency Department should you have concerns or if your condition changes or worsens in any way. You are seen in the emergency room for an episode of weakness. Your laboratory tests that show a decreased white count and anemia and low platelets. This should be evaluated further we will recommend that you follow-up with hematology. Case management will make an appointment for you. Continue current medications this time. Laboratory tests also showed a mild elevation in your liver enzymes that should be further evaluated as well. Your chest x-ray and abdominal CT did not show any acute pathology. Your vital signs are otherwise stable today recheck with your primary care doctor within the next week. 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 Service for Chg Fwd Related Data Home Medications ?Medication ?Instructions ?Recorded ?Confirmed acetaminophen 325 mg capsule 325 mg PO QID PRN Pain 06/19/19 07/31/24 pantoprazole 40 mg tablet,delayed 40 mg PO BID 06/19/19 07/31/24 release sodium bicarbonate 650 mg tablet 650 mg PO DAILY PRN Dialysis 09/18/19 07/31/24 apixaban 2.5 mg tablet (Eliquis) 2.5 mg PO BID 12/11/19 07/31/24 alprazolam 0.25 mg tablet (Xanax) 0.25 mg PO BID PRN Anxiety 04/01/20 07/31/24 diphenhydramine HCl 25 mg capsule 25 mg PO TID PRN Itching 04/01/20 07/31/24 (Benadryl) hydralazine 25 mg tablet 25 mg PO TID 01/21/23 07/31/24 melatonin 10 mg capsule 10 mg PO BEDTIME 01/21/23 07/31/24 ondansetron HCl 4 mg tablet 4 mg PO Q8H PRN Nausea 01/21/23 07/31/24 ropinirole 0.25 mg tablet 0.25 mg PO BEDTIME 01/21/23 07/31/24 sevelamer carbonate 800 mg tablet 1,600 mg PO TID 01/21/23 07/31/24 vit B,C-folic ac 800 mcg-zinc 12.5 1 tab PO DAILY 01/21/23 07/31/24 mg-selen-D3 2,000 unit-vit E tablet (RenaPlex-D) carvedilol 25 mg tablet 25 mg PO BID 06/04/23 07/31/24 semaglutide 1 mg/dose (4 mg/3 mL) 1 mg SUBCUT Q7D 06/04/23 07/31/24 subcutaneous pen injector (Ozempic) Held on 05/08/24. Instructions: Resume on 05/11/24. amlodipine 10 mg tablet 10 mg PO DAILY 03/22/24 07/31/24 citalopram 20 mg tablet 20 mg PO DAILY 03/22/24 07/31/24 promethazine 25 mg tablet 25 mg PO Q4H PRN Nausea And 06/07/24 07/31/24 Vomiting amoxicillin 500 mg capsule 500 mg PO BID 07/31/24 07/31/24 Allergies Allergy/AdvReac Type Severity Reaction Status Date / Time sulfamethoxazole (From Allergy Severe ALGY-Rash Verified 06/13/24 15:11 Sulfamethoxazole-Trimethoprim) trimethoprim (From Allergy Severe ALGY-Rash Verified 06/13/24 15:11 Sulfamethoxazole-Trimethoprim) adhesive tape Allergy Unknown blisters Verified 06/13/24 15:11 Cephalosporins Allergy Unknown unknown Verified 06/13/24 15:11 doxycycline Allergy ADR-Vomitin Verified 06/13/24 15:11 g latex Allergy blisters Verified 06/13/24 15:11
[2024-07-31 08:10] LABS: Basophils % 0.5 %; Hematocrit 26.4 % (36-47); Lymphocytes # 0.6 10^3/uL (0.8-4.8); Lymphocytes % 30.1 %; Mean Corpuscular Hemoglobin 33.3 pg (27-33); Mean Corpuscular Volume 101.1 fl (85-98); Mean Platelet Volume 10.6 fL (7.4-10.4); Monocytes # 0.2 10^3/uL (0.2-0.9); Monocytes % 9.2 %; Neutrophils # 1.15 10^3/uL (1.8-7.7); Neutrophils % 58.7 %; Nucleated Red Blood Cells % 0 %; Platelet Count 88 10^3/cmm (157-399); Red Blood Count 2.61 10^6/uL (3.85-5.65); Red Cell Distribution Width 15.9 % (12.1-15.1); White Blood Count 1.96 10^3/uL (3.29-11.43)
[2024-07-31 08:26] LABS: Alanine Aminotransferase 49 U/L (0-33); Albumin Level 3.9 g/dL (3.5-5.2); Alkaline Phosphatase 104 U/L (35-105); Anion Gap 19.3 (5-19); Aspartate Amino Transferase 61 U/L (0-32); Blood Urea Nitrogen 24 mg/dL (6-20); Calcium 8.6 mg/dL (8.5-10.5); Carbon Dioxide 26 mmol/L (22-29); Chloride 93 mmol/L (98-107); Creatinine Clr Calc Pharmacy 14.3229; Globulin 2.7 g/dL (1.3-4.6); Glucose 103 mg/dL (65-115); Osmolality Calculated 284 mOsm/kg (285-295); Potassium 3.3 mmol/L (3.5-5.1); Sodium 135 mmol/L (136-145); Total Bilirubin 0.7 mg/dL (0.15-1.2); Total Protein 6.6 g/dL (6.6-8.7)
[2024-07-31 09:13] LABS: Slide Review Slide Review Perform
[2024-07-31 10:00] LABS: Bilirubin Urine Negative (Negative); Blood Urine Trace (Negative); Glucose Urine UA Trace (Normal); Ketones Urine Negative (Negative); Leukocyte Esterase Urine Negative (Negative); Nitrate Urine Negative (Negative); Protein Urine 2+ (Negative); Specific Gravity, Urine 1.007 (1.005-1.030); Urine Appearance Clear (CLEAR); Urine Color Yellow (Yellow); Urobilinogen Urine 0.2 mg/dL (Negative); pH Urine 8.5 (5-7)
[2024-07-31 10:02] LABS: Add Urine Microscopic? YES; Bacteria Urine None Seen /hpf; RBC Urine 0-2 /hpf (0-2); Squamous Epithelial Cell Urine 0-5 /hpf (0-5); WBC Urine 0-5 /hpf (0-5)
--- NOTE | 2024-07-31 10:02 | CT_ITS ---
WS: [id number] CT ABDOMEN AND PELVIS NONCONTRAST HISTORY: Abdominal pain, anemia and elevated liver enzymes TECHNIQUE: Imaging performed through the abdomen and pelvis. Coronal and sagittal reformats are submitted. All CT scans at [facility] use at least one of these dose optimization techniques: automated exposure control; mA and/or kV adjustment per patient size (includes targeted exams where dose is matched to clinical indication); or iterative reconstruction. DLP: 647.10 mGy.cm COMPARISON: 05/07/2024 Lower thorax: Mild dependent changes at the lung bases. Heart is top normal size. Small hiatal hernia. Liver: Liver is slightly enlarged. Gallbladder: Normal gallbladder. No pericholecystic fluid or cholelithiasis. No gallbladder wall thickening. Pancreas: Normal size and attenuation. Normal pancreatic duct. No pancreatitis or mass. Spleen: Spleen is measuring slightly enlarged at 13.9 cm. Adrenal glands: Normal RIGHT adrenal gland. Mild thickening of the LEFT adrenal gland is stable. Right kidney: Moderate atrophy RIGHT kidney. No obstruction. Left kidney: Mild atrophy LEFT kidney with no obstruction. Central vascular calcification. Aorta: Mild atherosclerosis abdominal aorta with no aneurysm. No free fluid, intraperitoneal air or significant lymphadenopathy. GI tract: Nondistended stomach. No small bowel obstruction. Normal appendix. No diverticulitis. Abdominal wall: Negative. No hernia. Pelvis: Prior hysterectomy. No cystic mass within the pelvis. RIGHT iliac vein stent. Osseous structures: Grade 2 anterolisthesis of L5. Bilateral pars defects at L5. Severe degenerative disc disease at L5-S1. Mild anterior wedging of T12. Prior RIGHT hip arthroplasty. CT/CT abdomen pelvis wo con [id number] IMPRESSION: 1. No acute abdominal or pelvic abnormalities identified. 2. No ascites or adenopathy. 3. No renal obstruction. 4. Mild bilateral renal atrophy. 5. Spleen is top normal size just to slightly enlarged. 6. No GI tract obstruction.
[2024-07-31 10:11] VITALS: BP 143/67; PULSE 97; RESP 18; O2SAT 91
[2024-07-31 10:18] LABS: Add Urine Culture? No
[2024-07-31] MEDS: morphine 4 mg/mL SDV 1 mL 2 MG IVP (11:34)
--- NOTE | 2024-07-31 11:43 | PC.NURSE ---
pt ambulated without difficulty
[2024-07-31 12:13] VITALS: BP 121/58; PULSE 91; RESP 16; O2SAT 93
--- NOTE | 2024-08-06 08:44 | DCPLANNER ---
Referral sent to [facility] Hematology
== END 2024-07-31 12:19 | disposition home or self-care (01) ==
PROVIDERS: Emergency Provider Family Medicine; PCP Family Medicine
DX: R53.1 Weakness (principal); D64.9 Anemia, unspecified; E11.22 Type 2 diabetes mellitus with diabetic chronic kidney disease; N18.6 End stage renal disease; Z99.2 Dependence on renal dialysis; Z79.01 Long term (current) use of anticoagulants; Z72.0 Tobacco use
CPT/HCPCS: 71045; 74176; 80053; 81001; 85025; 93005; 96374; 99285; J2270

== ENCOUNTER 2024-08-15 09:28 | Oncology outpatient (recurring) (ONCR) | payer MEDICARE, MEDICAID, SELFPAY ==
[2024-08-15 11:08] LABS: Basophils % 0.7 %; Eosinophils % 0.2 %; Hematocrit 25.5 % (36-47); Lymphocytes # 1.7 10^3/uL (0.8-4.8); Lymphocytes % 40.8 %; Mean Corpuscular HGB Conc 32.5 g/dL (30-55); Mean Corpuscular Hemoglobin 34.6 pg (27-33); Mean Corpuscular Volume 106.3 fl (85-98); Mean Platelet Volume 9.7 fL (7.4-10.4); Monocytes # 0.2 10^3/uL (0.2-0.9); Monocytes % 5.6 %; Neutrophils # 2.14 10^3/uL (1.8-7.7); Neutrophils % 51.7 %; Nucleated Red Blood Cells % 0 %; Platelet Count 118 10^3/cmm (157-399); Red Cell Distribution Width 16.7 % (12.1-15.1); White Blood Count 4.14 10^3/uL (3.29-11.43)
[2024-08-15 11:21] LABS: Alanine Aminotransferase 25 U/L (0-33); Albumin Level 3.9 g/dL (3.5-5.2); Alkaline Phosphatase 102 U/L (35-105); Blood Urea Nitrogen 18 mg/dL (6-20); Calcium 8.6 mg/dL (8.5-10.5); Carbon Dioxide 32 mmol/L (22-29); Chloride 91 mmol/L (98-107); Creatinine Clr Calc Pharmacy 24.4775; Globulin 3.1 g/dL (1.3-4.6); Glomerular Filtration Rate 16.5 mL/min (90-130); Glucose 122 mg/dL (65-115); Iron 51 ug/dL (37-145); Osmolality Calculated 283 mOsm/kg (285-295); Sodium 135 mmol/L (136-145); Total Bilirubin 0.9 mg/dL (0.15-1.2)
[2024-08-15 11:34] LABS: Ferritin 2931 ng/mL (15-150)
[2024-08-15 11:36] LABS: Vitamin B12 1049 pg/mL (232-1245)
[2024-08-15 12:03] LABS: Slide Review Slide Review Perform
[2024-08-15 12:08] LABS: Folate Level > 20.0 ng/mL (4.8-37.3)
[2024-08-15 12:26] LABS: Carcinoembryonic Antigen 1.6 ng/mL (0.0-4.7)
[2024-08-15 12:34] LABS: Anion Gap 15.4 (5-19); Aspartate Amino Transferase 35 U/L (0-32); Lactate Dehydrogenase 276 U/L (135-214); Percent Saturation 27.8 % (20-50); Potassium 3.4 mmol/L (3.5-5.1); Total Iron Binding Capacity 183 mcg/dl; Unsaturated Iron Binding 132 ug/dL (112-347)
[2024-08-20 16:46] LABS: Erythropoietin 27.1 mIU/mL (2.6-18.5)
== END 2024-08-18 23:59 | disposition home or self-care (01) ==
LOC: ONCMED 09:29
PROVIDERS: PCP Family Medicine; Visit Provider Internal Medicine
DX: Z08 Encounter for follow-up examination after completed treatment for malignant neoplasm (principal); Z85.040 Personal history of malignant carcinoid tumor of rectum; D50.9 Iron deficiency anemia, unspecified; Z72.0 Tobacco use; N18.6 End stage renal disease; Z99.2 Dependence on renal dialysis
CPT/HCPCS: 36415; 80053; 82378; 82607; 82668; 82728; 82746; 83010; 83540; 83550; 83615; 85025; 85045; 99204

== ENCOUNTER 2024-08-16 20:25 | Emergency (ER) | payer MEDICARE, MEDICAID, SELFPAY ==
--- NOTE | 2024-08-16 20:26 | XRR_ITS ---
PROCEDURE INFORMATION: Exam: XR Chest Exam date and time: 08/16/2024 9:02 PM Age: 49 years old Clinical indication: Pain; Chest pressure; Additional info: Chest pain TECHNIQUE: Imaging protocol: Radiologic exam of the chest. Views: 1 view. COMPARISON: CR XR chest 1V portable [id number] 07/31/2024 8:06 AM FINDINGS: Tubes, catheters and devices: Stable left [id number]. Lungs: Unremarkable. No consolidation. Pleural spaces: Unremarkable. No pleural effusion. No pneumothorax. Heart/Mediastinum: Unremarkable. No cardiomegaly. Bones/joints: Unremarkable. XR/XR chest 1V portable [id number] IMPRESSION: No acute findings.
[2024-08-16 20:29] VITALS: BP 131/66; PULSE 106; RESP 18; TEMP 39.4; O2SAT 90; BMI 23.9
--- NOTE | 2024-08-16 20:34 | ECG_ITS ---
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 Measurements Intervals [place] Rate: 104 P: 64 VA: 134 QRS: -2 QRSD: 104 T: 123 QT: 378 QTc: 498 Interpretive Statements SINUS TACHYCARDIA POSSIBLE LEFT ATRIAL ENLARGEMENT [-0.1mV P-WAVE IN V1/V2] LEFT VENTRICULAR HYPERTROPHY AND ST-T CHANGE [VOLTAGE CRITERIA PLUS ST/T ABNORMALITY] POSSIBLE LATERAL MYOCARDIAL INFARCTION , OF INDETERMINATE AGE [30 ms Q WAVE IN I/aVL/V5/V6] Compared to ECG 07/31/2024 09:29:55 Myocardial infarct finding now present Sinus rhythm no longer present ST (T wave) deviation still present Electronically Signed On 08-21-2024 11:48:35 CDT by hJon Telles M.D. [email or web address]
[2024-08-16 20:56] LABS: Basophils % 0.2 %; Lymphocytes # 2.9 10^3/uL (0.8-4.8); Lymphocytes % 55.9 %; Mean Corpuscular HGB Conc 33.2 g/dL (30-55); Mean Corpuscular Hemoglobin 34.3 pg (27-33); Mean Corpuscular Volume 103.3 fl (85-98); Mean Platelet Volume 9.8 fL (7.4-10.4); Monocytes # 0.3 10^3/uL (0.2-0.9); Monocytes % 5.9 %; Neutrophils # 1.93 10^3/uL (1.8-7.7); Neutrophils % 37.6 %; Nucleated Red Blood Cells % 0 %; Platelet Count 103 10^3/cmm (157-399); Red Blood Count 2.13 10^6/uL (3.85-5.65); Red Cell Distribution Width 16.7 % (12.1-15.1); White Blood Count 5.12 10^3/uL (3.29-11.43)
[2024-08-16 20:58] LABS: Troponin(5th) Baseline 51 ng/L (0-10)
[2024-08-16 21:12] LABS: Bilirubin Urine Negative (Negative); Blood Urine Negative (Negative); Glucose Urine UA 1+ (Normal); Ketones Urine Negative (Negative); Leukocyte Esterase Urine Negative (Negative); Nitrate Urine Negative (Negative); Protein Urine 3+ (Negative); Specific Gravity, Urine 1.014 (1.005-1.030); Urine Appearance Clear (CLEAR); Urine Color Yellow (Yellow); pH Urine 8.5 (5-7)
[2024-08-16 21:14] LABS: Add Urine Microscopic? YES; Bacteria Urine None Seen /hpf; Hyaline Casts Urine 0.81 /lpf; Squamous Epithelial Cell Urine 0-5 /hpf (0-5); WBC Urine 0-5 /hpf (0-5)
[2024-08-16 21:27] LABS: Alanine Aminotransferase 22 U/L (0-33); Albumin Level 3.6 g/dL (3.5-5.2); Alkaline Phosphatase 93 U/L (35-105); Anion Gap 20.8 (5-19); Aspartate Amino Transferase 29 U/L (0-32); Blood Urea Nitrogen 37 mg/dL (6-20); Calcium 8.5 mg/dL (8.5-10.5); Carbon Dioxide 25 mmol/L (22-29); Chloride 89 mmol/L (98-107); Creatine Phosphokinase 39 U/L (26-192); Creatinine Clr Calc Pharmacy 13.8566; Glomerular Filtration Rate 8.6 mL/min (90-130); Glucose 146 mg/dL (65-115); Lipase 31 U/L (13-60); Osmolality Calculated 283 mOsm/kg (285-295); Potassium 3.8 mmol/L (3.5-5.1); Sodium 131 mmol/L (136-145); Total Bilirubin 0.8 mg/dL (0.15-1.2); Total Protein 6.6 g/dL (6.6-8.7)
[2024-08-16 21:45] VITALS: BP 125/58; PULSE 95; RESP 16; O2SAT 93
[2024-08-16 21:47] LABS: Slide Review Slide Review Perform
[2024-08-16 21:51] LABS: NT Pro B Type Natriuretic Pept 35793 pg/mL (0-125)
--- NOTE | 2024-08-16 22:22 | W.ED.CHESTPA ---
Documented by User: Kyle Villavicencio MD 08/16/24 22:42 HPI - Chest Pain General: Chief Complaint: Chest Pain Stated Complaint: cp Time Seen by Provider: 08/16/24 20:36 History of Present Illness: This patient is a 49-year-old white female who presents to the emergency department with fever and chest discomfort. Patient states she was diagnosed with a urinary tract infection last week. She was placed on amoxicillin. Currently she is taking 875 mg twice per day. She has not no cough. No vomiting or diarrhea. The chest pain she describes as diffuse and achy. Patient is on hemodialysis. Temp upon arrival here was 103. Associated symptoms: Reports fever(s) Related Data Home Medications ?Medication ?Instructions ?Recorded ?Confirmed acetaminophen 325 mg capsule 325 mg PO QID PRN Pain 06/19/19 08/15/24 pantoprazole 40 mg tablet,delayed 40 mg PO BID 06/19/19 08/15/24 release sodium bicarbonate 650 mg tablet 650 mg PO DAILY PRN Dialysis 09/18/19 08/15/24 apixaban 2.5 mg tablet (Eliquis) 2.5 mg PO BID 12/11/19 08/15/24 alprazolam 0.25 mg tablet (Xanax) 0.25 mg PO BID PRN Anxiety 04/01/20 08/15/24 diphenhydramine HCl 25 mg capsule 25 mg PO TID PRN Itching 04/01/20 08/15/24 (Benadryl) hydralazine 25 mg tablet 25 mg PO TID 01/21/23 08/15/24 melatonin 10 mg capsule 10 mg PO BEDTIME 01/21/23 08/15/24 ondansetron HCl 4 mg tablet 4 mg PO Q8H PRN Nausea 01/21/23 08/15/24 ropinirole 0.25 mg tablet 0.25 mg PO BEDTIME 01/21/23 08/15/24 sevelamer carbonate 800 mg tablet 1,600 mg PO TID 01/21/23 08/15/24 vit B,C-folic ac 800 mcg-zinc 12.5 1 tab PO DAILY 01/21/23 08/15/24 mg-selen-D3 2,000 unit-vit E tablet (RenaPlex-D) carvedilol 25 mg tablet 25 mg PO BID 06/04/23 08/15/24 semaglutide 1 mg/dose (4 mg/3 mL) 1 mg SUBCUT Q7D 06/04/23 08/15/24 subcutaneous pen injector (Ozempic) Held on 05/08/24. Instructions: Resume on 05/11/24. amlodipine 10 mg tablet 10 mg PO DAILY 03/22/24 08/15/24 citalopram 20 mg tablet 20 mg PO DAILY 03/22/24 08/15/24 promethazine 25 mg tablet 25 mg PO Q4H PRN Nausea And 06/07/24 08/15/24 Vomiting amoxicillin 500 mg capsule 500 mg PO BID 07/31/24 08/15/24 Previous Rx's ?Medication ?Instructions ?Recorded nitrofurantoin macrocrystal 100 mg 100 mg PO BID 5 days #10 caps 08/17/24 capsule Allergies Allergy/AdvReac Type Severity Reaction Status Date / Time sulfamethoxazole (From Allergy Severe ALGY-Rash Verified 08/15/24 09:35 Sulfamethoxazole-Trimethoprim) trimethoprim (From Allergy Severe ALGY-Rash Verified 08/15/24 09:35 Sulfamethoxazole-Trimethoprim) adhesive tape Allergy Unknown blisters Verified 08/15/24 09:35 Cephalosporins Allergy Unknown unknown Verified 08/15/24 09:35 doxycycline Allergy ADR-Vomitin Verified 08/15/24 09:35 g latex Allergy blisters Verified 08/15/24 09:35 Review of Systems General: Reports: 10 or more systems reviewed and unremarkable except in HPI and below Const: Reports: fever(s) and body aches PFSH ED PFSH: Medical History Tachycardia Diabetes Deep vein thrombosis (DVT) during Chronic anticoagulation Squamous cell carcinoma of anal canal Diabetes mellitus End-stage renal disease Surgical History Status post surgery (05/19/20) Removal of peritoneal dialysis catheter Port-A-Cath in place S/P hemodialysis catheter insertion (01/09/20) Removed 11/18/2020 Peritoneal dialysis status H/O colonoscopy H/O hand surgery History of hip surgery History of hysterectomy Family History Other Cancer Diabetes Denies family history of Anesthesia complication Bleeding disorder Social History Smoking and tobacco/nicotine status: current every day tobacco/nicotine user Alcohol intake: never Substance/Drug Use: never Household members: family Marital status: Single Current occupational status: disabled Physical Exam Const: COMMON NORMALS: no acute distress, patient oriented x3 and no limitations GENERAL APPEARANCE: cooperative and comfortable HENMT: COMMON NORMALS: normocephalic, atraumatic, Normal nasal mucous membranes and turbinates present, moist oral mucous membranes and oropharynx normal HEAD & SCALP: normal to inspection, normocephalic and atraumatic FACE & SINUS: normal facial exam NOSE: Normal nasal mucous membranes and turbinates present Eye: COMMON NORMALS: Equal, round and reactive pupils present, EOMs intact bilaterally and conjunctivae normal GENERAL EYE: appearance normal, both eyes and all related structures CONJUNCTIVA: Yes conjunctivae normal PUPIL: Yes Equal, round and reactive pupils present Neck/C-Spine: COMMON NORMALS: supple and no JVD Chest: COMMONS NORMALS: normal inspection of the chest Resp: COMMON NORMALS: normal respiratory effort and clear to auscultation bilaterally AUSCULTATION: clear to auscultation bilaterally Cardio: COMMON NORMALS: no JVD, regular rate, regular rhythm, No gallops present (Cardio), No murmurs present (Cardio) and No rub (Cardio) RATE: regular rate RHYTHM: regular rhythm GI: COMMON NORMALS: Normal to inspection, nondistended, normoactive bowel sounds present, Soft to palpation and non-tender AUSCULTATION: Yes normoactive bowel sounds PALPATION: Yes Soft to palpation : COMMON NORMALS: Yes no CVA tenderness BLADDER/KIDNEY EXAM: Yes no CVA tenderness Back/Pelvis: COMMON NORMALS: no CVA tenderness and thoracic and lumbar spine normal to inspection Extremity: COMMON NORMALS: normal to inspection Neuro: COMMON NORMALS: patient oriented x3 and CN's II-XII intact bilaterally Psych: COMMON NORMALS: mental status grossly normal, Normal thought process present and cooperative THOUGHT PROCESS: Normal thought process present Skin: COMMON NORMALS: no rashes or lesions noted, turgor normal and no jaundice GENERAL SKIN EXAM: no rashes or lesions noted and turgor normal Course Vital Signs: Vital signs: Vital Signs Temperature 103.0 F H 08/16/24 20:29 Pulse Rate 84 08/17/24 03:22 Respiratory Rate 16 08/17/24 03:22 Blood Pressure 117/61 08/17/24 03:22 Pulse Oximetry 95 08/17/24 03:22 Oxygen Delivery Me thod Nasal Cannula 08/17/24 02:16 Oxygen Flow Rate 2 08/17/24 02:16 MDM - Chest Pain Medical Decision Making EKG was normal. Chest x-ray normal. CBC reveals a white blood cell count of 5.1. Hemoglobin 7.3. CMP revealed a BUN of 37 and creatinine of 5.3. Lactic acid 1.0. Lipase 31. Urinalysis normal. The baseline troponin is 51. BNP 35,793. We will obtain a 2-hour troponin as well as a repeat lactic acid. Also added viral panel and a procalcitonin. I did discuss the case with the hospitalist Dr. Philippe. I will hand this patient off to Dr. Chavarria, ER physician. Patient is stable. Lab Data 08/16/24 20:45 08/16/24 20:45 Radiology Impressions Chest X-Ray 08/16/24 20:26 IMPRESSION: No acute findings. Laboratory Results WBC 5.12 10^3/uL (3.29-11.43) 08/16/24 20:45 Corrected WBC Cancelled 08/16/24 20:12 RBC 2.13 10^6/uL (3.85-5.65) L 08/16/24 20:45 Hgb 7.30 g/dL (11.27-16.99) L 08/16/24 20:45 Hct 22.0 % (36-47) L 08/16/24 20:45 MCV 103.3 fl (85-98) H 08/16/24 20:45 MCH 34.3 pg (27-33) H 08/16/24 20:45 MCHC 33.2 g/dL (30-55) 08/16/24 20:45 RDW 16.7 % (12.1-15.1) H 08/16/24 20:45 Plt Count 103 10^3/cmm (157-399) L 08/16/24 20:45 MPV 9.8 fL (7.4-10.4) 08/16/24 20:45 Gran % Cancelled 08/16/24 20:12 Neut % (Auto) 37.6 % 08/16/24 20:45 Lymph % (Auto) 55.9 % 08/16/24 20:45 Quay % (Auto) 5.9 % 08/16/24 20:45 Eos % (Auto) 0.0 % 08/16/24 20:45 Baso % (Auto) 0.2 % 08/16/24 20:45 Neut # (Auto) 1.93 10^3/uL (1.8-7.7) 08/16/24 20:45 Lymph # (Auto) 2.9 10^3/uL (0.8-4.8) 08/16/24 20:45 Quay # (Auto) 0.3 10^3/uL (0.2-0.9) 08/16/24 20:45 Eos # (Auto) 0.0 10^3/uL (0.0-0.8) 08/16/24 20:45 Baso # (Auto) 0.0 10^3/uL (0.0-0.1) 08/16/24 20:45 Absolute Gran (auto) Cancelled 08/16/24 20:12 Nucleated RBC % (auto) 0 % 08/16/24 20:45 Nucleated RBCs # 0.0 /100WBC 08/16/24 20:45 Sodium 131 mmol/L (136-145) L 08/16/24 20:45 Potassium 3.8 mmol/L (3.5-5.1) 08/16/24 20:45 Chloride 89 mmol/L (98-107) L 08/16/24 20:45 Carbon Dioxide 25 mmol/L (22-29) 08/16/24 20:45 Anion Gap 20.8 (5-19) H 08/16/24 20:45 BUN 37 mg/dL (6-20) H 08/16/24 20:45 Creatinine 5.3 mg/dL (0.5-0.9) H 08/16/24 20:45 GFR Calculation 8.6 mL/min (90-130) L 08/16/24 20:45 Glucose 146 mg/dL (65-115) H 08/16/24 20:45 Calculated Osmolality 283 mOsm/kg (285-295) L 08/16/24 20:45 Lactic Acid 1.0 mmol/L (0.5-2.2) 08/16/24 20:45 Calcium 8.5 mg/dL (8.5-10.5) 08/16/24 20:45 Total Bilirubin 0.8 mg/dL (0.15-1.2) 08/16/24 20:45 AST 29 U/L (0-32) 08/16/24 20:45 ALT 22 U/L (0-33) 08/16/24 20:45 Alkaline Phosphatase 93 U/L (35-105) 08/16/24 20:45 Creatine Kinase 39 U/L (26-192) 08/16/24 20:45 Troponin T Baseline 51 ng/L (0-10) H 08/16/24 20:12 Troponin T 120 Minute 52.97 ng/L (0-10) H 08/16/24 22:16 Delta Troponin T 1.97 ABS# (0-10) 08/16/24 22:16 Troponin T Hi Sens 6Hr 50.77 ng/L (0-10) H 08/17/24 02:16 Troponin T Hi Sens 6Hr Delta -0.23 ng/L (0-12) L 08/17/24 02:16 NT-Pro-B Natriuret Pep 36874 pg/mL (0-125) H 08/16/24 20:45 Total Protein 6.6 g/dL (6.6-8.7) 08/16/24 20:45 Albumin 3.6 g/dL (3.5-5.2) 08/16/24 20:45 Globulin 3.0 g/dL (1.3-4.6) 08/16/24 20:45 Lipase 31 U/L (13-60) 08/16/24 20:45 Procalcitonin 4.70 ng/mL (0-0.5) H 08/16/24 22:16 Urine Color Yellow (Yellow) 08/16/24 21:00 Urine Appearance Clear (CLEAR) 08/16/24 21:00 Urine pH 8.5 (5-7) A 08/16/24 21:00 Ur Specific Lohman 1.014 (1.005-1.030) 08/16/24 21:00 Urine Protein 3+ (Negative) A 08/16/24 21:00 Urine Glucose (UA) 1+ (Normal) H 08/16/24 21:00 Urine Ketones Negative (Negative) 08/16/24 21:00 Urine Blood Negative (Negative) 08/16/24 21:00 Urine Nitrate Negative (Negative) 08/16/24 21:00 Urine Bilirubin Negative (Negative) 08/16/24 21:00 Urine Urobilinogen 1.0 mg/dL (Negative) 08/16/24 21:00 Ur Leukocyte Esterase Negative (Negative) 08/16/24 21:00 Urine RBC 3-5 /hpf (0-2) 08/16/24 21:00 Urine WBC 0-5 /hpf (0-5) 08/16/24 21:00 Ur Squamous Epith Cells 0-5 /hpf (0-5) 08/16/24 21:00 Amorphous Sediment Not Reportable 08/16/24 21:00 Urine Bacteria None seen /hpf (NONE) 08/16/24 21:00 Hyaline Casts 0.81 /lpf 08/16/24 21:00 Influenza A (PCR) Negative (Negative) 08/16/24 22:42 Influenza Type B (PCR) Negative (Negative) 08/16/24 22:42 RSV (PCR) Negative (Negative) 08/16/24 22:42 SARS-CoV-2 (PCR) Negative (Negative) 08/16/24 22:42 All radiology interpretation(s) finalized by discharge Discharge Plan Discharge Patient Disposition: Home Clinical Impression: UTI (urinary tract infection) Condition: Stable Prescriptions: New nitrofurantoin macrocrystal 100 mg capsule 100 mg PO BID 5 Days Qty: 10 0RF Rx Instructions: must administer with a meal/food No Action alprazolam [Xanax] 0.25 mg tablet 0.25 mg PO BID PRN (Reason: Anxiety) diphenhydramine HCl [Benadryl] 25 mg capsule 25 mg PO TID PRN (Reason: Itching) acetaminophen 325 mg capsule 325 mg PO QID PRN (Reason: Pain) pantoprazole 40 mg tablet,delayed release (DR/EC) 40 mg PO BID sodium bicarbonate 650 mg tablet 650 mg PO DAILY PRN (Reason: Dialysis) Eliquis 2.5 mg Tablet 2.5 mg PO BID ondansetron HCl 4 mg Tablet 4 mg PO Q8H PRN (Reason: Nausea) hydralazine 25 mg tablet 25 mg PO TID ropinirole 0.25 mg Tablet 0.25 mg PO BEDTIME sevelamer carbonate 800 mg tablet 1,600 mg PO TID melatonin 10 mg Capsule 10 mg PO BEDTIME RenaPlex-D 800 mcg-12.5 mg -2,000 unit Tablet 1 tab PO DAILY promethazine 25 mg tablet 25 mg PO Q4H PRN (Reason: Nausea And Vomiting) amoxicillin 500 mg capsule 500 mg PO BID carvedilol 25 mg tablet 25 mg PO BID Ozempic 1 mg/dose (4 mg/3 mL) pen injector 1 mg SUBCUT Q7D Rx Instructions: on Tuesday amlodipine 10 mg tablet 10 mg PO DAILY citalopram 20 mg tablet 20 mg PO DAILY Discharge Orders: Discharge ED (Routine); Ordered 08/17/24 Ordered By: Thierry Chavarria Referrals: Herber Hussein MD [Primary Care Provider, [facility]] Discharge Diet: Advance as tolerated Discharge Activity: Increase activity as tolerated Patient Instructions: Urinary Tract Infection in Women (ED) Activity Restrictions/Additional Instructions: Please take the prescribed antibiotics for your UTI and Tylenol if your fever returns. 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 [employer] Documented by User: Thierry Chavarria MD 08/17/24 06:08 HPI - Chest Pain General: Chief Complaint: Chest Pain Stated Complaint: cp Time Seen by Provider: 08/16/24 20:36 Related Data Home Medications ?Medication ?Instructions ?Recorded ?Confirmed acetaminophen 325 mg capsule 325 mg PO QID PRN Pain 06/19/19 08/15/24 pantoprazole 40 mg tablet,delayed 40 mg PO BID 06/19/19 08/15/24 release sodium bicarbonate 650 mg tablet 650 mg PO DAILY PRN Dialysis 09/18/19 08/15/24 apixaban 2.5 mg tablet (Eliquis) 2.5 mg PO BID 12/11/19 08/15/24 alprazolam 0.25 mg tablet (Xanax) 0.25 mg PO BID PRN Anxiety 04/01/20 08/15/24 diphenhydramine HCl 25 mg capsule 25 mg PO TID PRN Itching 04/01/20 08/15/24 (Benadryl) hydralazine 25 mg tablet 25 mg PO TID 01/21/23 08/15/24 melatonin 10 mg capsule 10 mg PO BEDTIME 01/21/23 08/15/24 ondansetron HCl 4 mg tablet 4 mg PO Q8H PRN Nausea 01/21/23 08/15/24 ropinirole 0.25 mg tablet 0.25 mg PO BEDTIME 01/21/23 08/15/24 sevelamer carbonate 800 mg tablet 1,600 mg PO TID 01/21/23 08/15/24 vit B,C-folic ac 800 mcg-zinc 12.5 1 tab PO DAILY 01/21/23 08/15/24 mg-selen-D3 2,000 unit-vit E tablet (RenaPlex-D) carvedilol 25 mg tablet 25 mg PO BID 06/04/23 08/15/24 semaglutide 1 mg/dose (4 mg/3 mL) 1 mg SUBCUT Q7D 06/04/23 08/15/24 subcutaneous pen injector (Ozempic) Held on 05/08/24. Instructions: Resume on 05/11/24. amlodipine 10 mg tablet 10 mg PO DAILY 03/22/24 08/15/24 citalopram 20 mg tablet 20 mg PO DAILY 03/22/24 08/15/24 promethazine 25 mg tablet 25 mg PO Q4H PRN Nausea And 06/07/24 08/15/24 Vomiting amoxicillin 500 mg capsule 500 mg PO BID 07/31/24 08/15/24 Previous Rx's ?Medication ?Instructions ?Recorded nitrofurantoin macrocrystal 100 mg 100 mg PO BID 5 days #10 caps 08/17/24 capsule Allergies Allergy/AdvReac Type Severity Reaction Status Date / Time sulfamethoxazole (From Allergy Severe ALGY-Rash Verified 08/15/24 09:35 Sulfamethoxazole-Trimethoprim) trimethoprim (From Allergy Severe ALGY-Rash Verified 08/15/24 09:35 Sulfamethoxazole-Trimethoprim) adhesive tape Allergy Unknown blisters Verified 08/15/24 09:35 Cephalosporins Allergy Unknown unknown Verified 08/15/24 09:35 doxycycline Allergy ADR-Vomitin Verified 08/15/24 09:35 g latex Allergy blisters Verified 08/15/24 09:35 PFSH ED PFSH: Medical History Tachycardia Diabetes Deep vein thrombosis (DVT) during Chronic anticoagulation Squamous cell carcinoma of anal canal Diabetes mellitus End-stage renal disease Surgical History Status post surgery (05/19/20) Removal of peritoneal dialysis catheter Port-A-Cath in place S/P hemodialysis catheter insertion (01/09/20) Removed 11/18/2020 Peritoneal dialysis status H/O colonoscopy H/O hand surgery History of hip surgery History of hysterectomy Family History Other Cancer Diabetes Denies family history of Anesthesia complication Bleeding disorder Social History Smoking and tobacco/nicotine status: current every day tobacco/nicotine user Alcohol intake: never Substance/Drug Use: never Household members: family Marital status: Single Current occupational status: disabled Course Vital Signs: Vital signs: Vital Signs Temperature 103.0 F H 08/16/24 20:29 Pulse Rate 84 08/17/24 03:22 Respiratory Rate 16 08/17/24 03:22 Blood Pressure 117/61 08/17/24 03:22 Pulse Oximetry 95 08/17/24 03:22 Oxygen Delivery Me thod Nasal Cannula 08/17/24 02:16 Oxygen Flow Rate 2 08/17/24 02:16 MDM - Chest Pain Medical Decision Making EKG was normal. Chest x-ray normal. CBC reveals a white blood cell count of 5.1. Hemoglobin 7.3. CMP revealed a BUN of 37 and creatinine of 5.3. Lactic acid 1.0. Lipase 31. Urinalysis normal. The baseline troponin is 51. BNP 35,793. We will obtain a 2-hour troponin as well as a repeat lactic acid. Also added viral panel and a procalcitonin. I did discuss the case with the hospitalist Dr. Philippe. I will hand this patient off to Dr. Chavarria, ER physician. Patient is stable. Post handoff note by Dr. Chavarria: Patient remained hemodynamically stable after receiving antipyretics. Though urinalysis today does not show obvious infection and there are no cultures to guide therapy, procalcitonin is elevated and with report of prior positive urinalysis which was treated with amoxicillin, I feel she is suffering from a partially treated UTI. She will be switched to metronidazole given her many allergies to antibiotics. She will be discharged home in stable and improved condition knowing that she is always welcome back in the emergency department if symptoms get worse before outpatient follow-up. Lab Data 08/16/24 20:45 08/16/24 20:45 Radiology Impressions Chest X-Ray 08/16/24 20:26 IMPRESSION: No acute findings. Laboratory Results WBC 5.12 10^3/uL (3.29-11.43) 08/16/24 20:45 Corrected WBC Cancelled 08/16/24 20:12 RBC 2.13 10^6/uL (3.85-5.65) L 08/16/24 20:45 Hgb 7.30 g/dL (11.27-16.99) L 08/16/24 20:45 Hct 22.0 % (36-47) L 08/16/24 20:45 MCV 103.3 fl (85-98) H 08/16/24 20:45 MCH 34.3 pg (27-33) H 08/16/24 20:45 MCHC 33.2 g/dL (30-55) 08/16/24 20:45 RDW 16.7 % (12.1-15.1) H 08/16/24 20:45 Plt Count 103 10^3/cmm (157-399) L 08/16/24 20:45 MPV 9.8 fL (7.4-10.4) 08/16/24 20:45 Gran % Cancelled 08/16/24 20:12 Neut % (Auto) 37.6 % 08/16/24 20:45 Lymph % (Auto) 55.9 % 08/16/24 20:45 Quay % (Auto) 5.9 % 08/16/24 20:45 Eos % (Auto) 0.0 % 08/16/24 20:45 Baso % (Auto) 0.2 % 08/16/24 20:45 Neut # (Auto) 1.93 10^3/uL (1.8-7.7) 08/16/24 20:45 Lymph # (Auto) 2.9 10^3/uL (0.8-4.8) 08/16/24 20:45 Quay # (Auto) 0.3 10^3/uL (0.2-0.9) 08/16/24 20:45 Eos # (Auto) 0.0 10^3/uL (0.0-0.8) 08/16/24 20:45 Baso # (Auto) 0.0 10^3/uL (0.0-0.1) 08/16/24 20:45 Absolute Gran (auto) Cancelled 08/16/24 20:12 Nucleated RBC % (auto) 0 % 08/16/24 20:45 Nucleated RBCs # 0.0 /100WBC 08/16/24 20:45 Sodium 131 mmol/L (136-145) L 08/16/24 20:45 Potassium 3.8 mmol/L (3.5-5.1) 08/16/24 20:45 Chloride 89 mmol/L (98-107) L 08/16/24 20:45 Carbon Dioxide 25 mmol/L (22-29) 08/16/24 20:45 Anion Gap 20.8 (5-19) H 08/16/24 20:45 BUN 37 mg/dL (6-20) H 08/16/24 20:45 Creatinine 5.3 mg/dL (0.5-0.9) H 08/16/24 20:45 GFR Calculation 8.6 mL/min (90-130) L 08/16/24 20:45 Glucose 146 mg/dL (65-115) H 08/16/24 20:45 Calculated Osmolality 283 mOsm/kg (285-295) L 08/16/24 20:45 Lactic Acid 1.0 mmol/L (0.5-2.2) 08/16/24 20:45 Calcium 8.5 mg/dL (8.5-10.5) 08/16/24 20:45 Total Bilirubin 0.8 mg/dL (0.15-1.2) 08/16/24 20:45 AST 29 U/L (0-32) 08/16/24 20:45 ALT 22 U/L (0-33) 08/16/24 20:45 Alkaline Phosphatase 93 U/L (35-105) 08/16/24 20:45 Creatine Kinase 39 U/L (26-192) 08/16/24 20:45 Troponin T Baseline 51 ng/L (0-10) H 08/16/24 20:12 Troponin T 120 Minute 52.97 ng/L (0-10) H 08/16/24 22:16 Delta Troponin T 1.97 ABS# (0-10) 08/16/24 22:16 Troponin T Hi Sens 6Hr 50.77 ng/L (0-10) H 08/17/24 02:16 Troponin T Hi Sens 6Hr Delta -0.23 ng/L (0-12) L 08/17/24 02:16 NT-Pro-B Natriuret Pep 58600 pg/mL (0-125) H 08/16/24 20:45 Total Protein 6.6 g/dL (6.6-8.7) 08/16/24 20:45 Albumin 3.6 g/dL (3.5-5.2) 08/16/24 20:45 Globulin 3.0 g/dL (1.3-4.6) 08/16/24 20:45 Lipase 31 U/L (13-60) 08/16/24 20:45 Procalcitonin 4.70 ng/mL (0-0.5) H 08/16/24 22:16 Urine Color Yellow (Yellow) 08/16/24 21:00 Urine Appearance Clear (CLEAR) 08/16/24 21:00 Urine pH 8.5 (5-7) A 08/16/24 21:00 Ur Specific Lohman 1.014 (1.005-1.030) 08/16/24 21:00 Urine Protein 3+ (Negative) A 08/16/24 21:00 Urine Glucose (UA) 1+ (Normal) H 08/16/24 21:00 Urine Ketones Negative (Negative) 08/16/24 21:00 Urine Blood Negative (Negative) 08/16/24 21:00 Urine Nitrate Negative (Negative) 08/16/24 21:00 Urine Bilirubin Negative (Negative) 08/16/24 21:00 Urine Urobilinogen 1.0 mg/dL (Negative) 08/16/24 21:00 Ur Leukocyte Esterase Negative (Negative) 08/16/24 21:00 Urine RBC 3-5 /hpf (0-2) 08/16/24 21:00 Urine WBC 0-5 /hpf (0-5) 08/16/24 21:00 Ur Squamous Epith Cells 0-5 /hpf (0-5) 08/16/24 21:00 Amorphous Sediment Not Reportable 08/16/24 21:00 Urine Bacteria None seen /hpf (NONE) 08/16/24 21:00 Hyaline Casts 0.81 /lpf 08/16/24 21:00 Influenza A (PCR) Negative (Negative) 08/16/24 22:42 Influenza Type B (PCR) Negative (Negative) 08/16/24 22:42 RSV (PCR) Negative (Negative) 08/16/24 22:42 SARS-CoV-2 (PCR) Negative (Negative) 08/16/24 22:42 Discharge Plan Discharge Patient Disposition: Home Clinical Impression: UTI (urinary tract infection) Condition: Stable Prescriptions: New nitrofurantoin macrocrystal 100 mg capsule 100 mg PO BID 5 Days Qty: 10 0RF Rx Instructions: must administer with a meal/food No Action alprazolam [Xanax] 0.25 mg tablet 0.25 mg PO BID PRN (Reason: Anxiety) diphenhydramine HCl [Benadryl] 25 mg capsule 25 mg PO TID PRN (Reason: Itching) acetaminophen 325 mg capsule 325 mg PO QID PRN (Reason: Pain) pantoprazole 40 mg tablet,delayed release (DR/EC) 40 mg PO BID sodium bicarbonate 650 mg tablet 650 mg PO DAILY PRN (Reason: Dialysis) Eliquis 2.5 mg Tablet 2.5 mg PO BID ondansetron HCl 4 mg Tablet 4 mg PO Q8H PRN (Reason: Nausea) hydralazine 25 mg tablet 25 mg PO TID ropinirole 0.25 mg Tablet 0.25 mg PO BEDTIME sevelamer carbonate 800 mg tablet 1,600 mg PO TID melatonin 10 mg Capsule 10 mg PO BEDTIME RenaPlex-D 800 mcg-12.5 mg -2,000 unit Tablet 1 tab PO DAILY promethazine 25 mg tablet 25 mg PO Q4H PRN (Reason: Nausea And Vomiting) amoxicillin 500 mg capsule 500 mg PO BID carvedilol 25 mg tablet 25 mg PO BID Ozempic 1 mg/dose (4 mg/3 mL) pen injector 1 mg SUBCUT Q7D Rx Instructions: on Tuesday amlodipine 10 mg tablet 10 mg PO DAILY citalopram 20 mg tablet 20 mg PO DAILY Discharge Orders: Discharge ED (Routine); Ordered 08/17/24 Ordered By: Thierry Chavarria Referrals: Herber Husesin MD [Primary Care Provider, [facility]] Discharge Diet: Advance as tolerated Discharge Activity: Increase activity as tolerated Patient Instructions: Urinary Tract Infection in Women (ED) Activity Restrictions/Additional Instructions: Please take the prescribed antibiotics for your UTI and Tylenol if your fever returns. 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
[2024-08-16] MEDS: acetaminophen 500 mg Tablet 1000 MG PO (22:40)
[2024-08-16 22:41] LABS: Troponin 5 2HR 52.97 ng/L (0-10); Troponin 5 2HR Delta 1.97 ABS# (0-10)
[2024-08-16 22:43] VITALS: BP 129/59; PULSE 92; RESP 16; O2SAT 94
--- NOTE | 2024-08-16 22:43 | ECG_ITS ---
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: : 1975 Requested By: Thierry Pederson Order Number: [id number] Dung MD: DESTIN GUEVARA Measurements Intervals [place] Rate: 89 P: 55 IA: 136 QRS: 7 QRSD: 109 T: 101 QT: 412 QTc: 504 Interpretive Statements SINUS RHYTHM POSSIBLE LEFT ATRIAL ENLARGEMENT [-0.1mV P-WAVE IN V1/V2] LEFT VENTRICULAR HYPERTROPHY AND ST-T CHANGE [VOLTAGE CRITERIA PLUS ST/T ABNORMALITY] Compared to ECG 08/16/2024 20:34:51 Sinus tachycardia no longer present Myocardial infarct finding no longer present ST (T wave) deviation still present Electronically Signed On 08-22-2024 22:58:38 CDT by DESTIN GUEVARA [email or web address]
[2024-08-16 23:31] LABS: Influenza A NEGATIVE (Negative); Influenza B NEGATIVE (Negative); Respiratory Syncytial Virus Ce NEGATIVE (Negative); SARS-CoV-2 PCR NEGATIVE (Negative)
[2024-08-17 01:15] VITALS: BP 110/52; PULSE 82; RESP 16; O2SAT 95
[2024-08-17 02:16] VITALS: BP 113/62; PULSE 83; RESP 16; O2SAT 99
--- NOTE | 2024-08-17 02:20 | ECG_ITS ---
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
[2024-08-17] MEDS: nitrofurantoin SR (BID) 100 mg Capsule PO (02:35)
[2024-08-17 02:51] LABS: Troponin 5 6HR 50.77 ng/L (0-10); Troponin 5 6HR Delta -0.23 ng/L (0-12)
[2024-08-17 03:22] VITALS: BP 117/61; PULSE 84; RESP 16; O2SAT 95
== END 2024-08-17 03:25 | disposition home or self-care (01) ==
PROVIDERS: Student in an Organized Health Care Education/Training Program; Emergency Provider Emergency Medicine; PCP Family Medicine
DX: N39.0 Urinary tract infection, site not specified (principal); Z79.01 Long term (current) use of anticoagulants; Z11.52 Encounter for screening for COVID-19; Z72.0 Tobacco use; Z85.048 Personal history of other malignant neoplasm of rectum, rectosigmoid junction, and anus; E11.22 Type 2 diabetes mellitus with diabetic chronic kidney disease; N18.6 End stage renal disease
CPT/HCPCS: 36415; 71045; 80053; 81001; 82550; 83605; 83690; 83880; 84145; 84484; 85025; 87040; 87086; 87637; 93005; 99285; J9999

== ENCOUNTER 2024-08-27 13:54 | Emergency (ER) | payer MEDICARE, MEDICAID, SELFPAY ==
[2024-08-27 14:03] VITALS: BP 115/56; PULSE 103; RESP 16; TEMP 36.7; O2SAT 97
--- NOTE | 2024-08-27 14:04 | ECG_ITS ---
[facility]: 2024-[facility]-27 Pat Name: Bharati Anthony Department: Room: Gender: Female [employer] Interleafer: : 1975 Requested By: Andie Dailey Order Number: [id number] Dung MD: Hector Moe M.D. Measurements Intervals [place] Rate: 108 P: 71 VA: 135 QRS: 4 QRSD: 101 T: 93 QT: 392 QTc: 527 Interpretive Statements SINUS TACHYCARDIA LEFT VENTRICULAR HYPERTROPHY AND ST-T CHANGE [VOLTAGE CRITERIA PLUS ST/T ABNORMALITY] Compared to ECG 08/17/2024 02:20:28 Sinus rhythm no longer present Myocardial infarct finding no longer present ST (T wave) deviation still present Electronically Signed On 08-29-2024 22:08:16 CDT by Hector Moe M.D. [email or web address]
[2024-08-27 14:17] LABS: Basophils % 0.5 %; Eosinophils # 0.2 10^3/uL (0.0-0.8); Eosinophils % 2.3 %; Lymphocytes # 2.9 10^3/uL (0.8-4.8); Lymphocytes % 43.8 %; Mean Corpuscular HGB Conc 32.5 g/dL (30-55); Mean Corpuscular Hemoglobin 35.1 pg (27-33); Mean Corpuscular Volume 108.1 fl (85-98); Monocytes # 0.4 10^3/uL (0.2-0.9); Monocytes % 5.7 %; Neutrophils % 46.8 %; Nucleated Red Blood Cells % 0 %; Platelet Count 160 10^3/cmm (157-399); Red Blood Count 1.85 10^6/uL (3.85-5.65); Red Cell Distribution Width 17.6 % (12.1-15.1); White Blood Count 6.62 10^3/uL (3.29-11.43)
--- NOTE | 2024-08-27 14:17 | W.ED.RECABL ---
Documented by User: RAMSEY Ospina 08/27/24 15:31 HPI - Recheck/Abnormal Lab/Rx General: Chief Complaint: Recheck/Abnormal Lab/Rx Stated Complaint: sent from dialysis, abnormal labs Time Seen by Provider: 08/27/24 13:56 Source: patient Mode of arrival: ambulatory Limitations: no limitations History of Present Illness: Patient is a 49-year-old female presents to ED today after she was told by the dialysis clinic that she was anemic. Patient is a chronic dialysis patient. She states she has been having issues with anemia and is currently following up with hematology. She has a history of anal cancer but states she is in remission from this. Denies history of GI bleed. She is on Eliquis for previous DVTs. Patient states she was given IV iron infusion at her dialysis appointment today at the recommendation of hematology. Looking at previous documentation, her hemoglobin has ran 7-8 over the past month or so. She does complain of feeling weak. She has not had any recent falls. No lightheadedness or dizziness. She does not complain of any black or tarry stools or hematemesis. She does have colonoscopy scheduled with Dr. Escoto for next week. She did have a low hemoglobin around this time last year and was admitted to the hospital and had fairly unremarkable endoscopy/colonoscopies-no evidence at that time for active bleed. complaint: abnormal lab Initial visit (ago): hour(s) Returns today for: called because of abnormal lab/test Symptoms since prior visit: no new symptoms Context: called for abnormal lab result Associated symptoms: none Related Data Home Medications ?Medication ?Instructions ?Recorded ?Confirmed acetaminophen 325 mg capsule 325 mg PO QID PRN Pain 06/19/19 08/15/24 pantoprazole 40 mg tablet,delayed 40 mg PO BID 06/19/19 08/15/24 release sodium bicarbonate 650 mg tablet 650 mg PO DAILY PRN Dialysis 09/18/19 08/15/24 apixaban 2.5 mg tablet (Eliquis) 2.5 mg PO BID 12/11/19 08/15/24 alprazolam 0.25 mg tablet (Xanax) 0.25 mg PO BID PRN Anxiety 04/01/20 08/15/24 diphenhydramine HCl 25 mg capsule 25 mg PO TID PRN Itching 04/01/20 08/15/24 (Benadryl) hydralazine 25 mg tablet 25 mg PO TID 01/21/23 08/15/24 melatonin 10 mg capsule 10 mg PO BEDTIME 01/21/23 08/15/24 ondansetron HCl 4 mg tablet 4 mg PO Q8H PRN Nausea 01/21/23 08/15/24 ropinirole 0.25 mg tablet 0.25 mg PO BEDTIME 01/21/23 08/15/24 sevelamer carbonate 800 mg tablet 1,600 mg PO TID 01/21/23 08/15/24 vit B,C-folic ac 800 mcg-zinc 12.5 1 tab PO DAILY 01/21/23 08/15/24 mg-selen-D3 2,000 unit-vit E tablet (RenaPlex-D) carvedilol 25 mg tablet 25 mg PO BID 06/04/23 08/15/24 semaglutide 1 mg/dose (4 mg/3 mL) 1 mg SUBCUT Q7D 06/04/23 08/15/24 subcutaneous pen injector (FINDING ROVERempic) Held on 05/08/24. Instructions: Resume on 05/11/24. amlodipine 10 mg tablet 10 mg PO DAILY 03/22/24 08/15/24 citalopram 20 mg tablet 20 mg PO DAILY 03/22/24 08/15/24 promethazine 25 mg tablet 25 mg PO Q4H PRN Nausea And 06/07/24 08/15/24 Vomiting amoxicillin 500 mg capsule 500 mg PO BID 07/31/24 08/15/24 Allergies Allergy/AdvReac Type Severity Reaction Status Date / Time sulfamethoxazole (From Allergy Severe ALGY-Rash Verified 08/15/24 09:35 Sulfamethoxazole-Trimethoprim) trimethoprim (From Allergy Severe ALGY-Rash Verified 08/15/24 09:35 Sulfamethoxazole-Trimethoprim) adhesive tape Allergy Unknown blisters Verified 08/15/24 09:35 Cephalosporins Allergy Unknown unknown Verified 08/15/24 09:35 doxycycline Allergy ADR-Vomitin Verified 08/15/24 09:35 g latex Allergy blisters Verified 08/15/24 09:35 Review of Systems Const: Denies: fever(s) or chills Card: Denies: chest pain, palpitations, lightheadedness, syncope or pre-syncope Resp: Denies: dyspnea GI: Denies: abdominal pain, hematemesis, hematochezia or melena Musc: Denies: neck pain, back pain, extremity pain or joint swelling Skin/Breast: Denies: rash Neuro: Denies: dizziness PFSH ED PFSH: Medical History Tachycardia Diabetes Deep vein thrombosis (DVT) during Chronic anticoagulation Squamous cell carcinoma of anal canal Diabetes mellitus End-stage renal disease Surgical History Status post surgery (05/19/20) Removal of peritoneal dialysis catheter Port-A-Cath in place S/P hemodialysis catheter insertion (01/09/20) Removed 11/18/2020 Peritoneal dialysis status H/O colonoscopy H/O hand surgery History of hip surgery History of hysterectomy Family History Other Cancer Diabetes Denies family history of Anesthesia complication Bleeding disorder Social History Smoking and tobacco/nicotine status: current every day tobacco/nicotine user Alcohol intake: never Substance/Drug Use: never Household members: family Marital status: Single Current occupational status: disabled Physical Exam Const: COMMON NORMALS: no acute distress, patient oriented x3, no limitations, alert and well nourished GENERAL APPEARANCE: cooperative ORIENTATION/CONSCIOUSNESS: Yes awake, Yes oriented to person, Yes oriented to place and Yes oriented to time OTHER: pale Eye: COMMON NORMALS: no scleral icterus Resp: COMMON NORMALS: normal respiratory effort and clear to auscultation bilaterally AUSCULTATION: clear to auscultation bilaterally Cardio: COMMON NORMALS: regular rate and regular rhythm RATE: regular rate RHYTHM: regular rhythm GI: COMMON NORMALS: Normal to inspection, nondistended, normoactive bowel sounds present, Soft to palpation, non-tender, No hepatosplenomegaly present and no masses PALPATION: Yes Soft to palpation and Yes No hepatosplenomegaly present : COMMON NORMALS: Yes no CVA tenderness BLADDER/KIDNEY EXAM: Yes no CVA tenderness Back/Pelvis: COMMON NORMALS: no CVA tenderness and thoracic and lumbar spine normal to inspection Extremity: GENERAL: Yes normal exam except as noted Neuro: COMMON NORMALS: patient oriented x3, moves all extremities, no focal motor deficits, no sensory deficits noted and gait normal SENSORIUM/ORIENTATION: Yes alert, Yes oriented to person, Yes oriented to place and Yes oriented to time Course Vital Signs: Vital signs: Vital Signs Temperature 98.1 F 08/27/24 14:03 Pulse Rate 95 08/27/24 15:57 Respiratory Rate 16 08/27/24 15:57 Blood Pressure 117/61 08/27/24 15:57 Pulse Oximetry 97 08/27/24 15:57 Oxygen Delivery Me thod Room Air 08/27/24 14:03 MDM - Recheck/Abnormal Lab/Rx Medical Decision Making Patient with longstanding history of anemia. She is currently following up with hematology. Hemoglobin over the past month or so has been roughly 7-8. She is 6.5 today. She is otherwise stable. Will schedule her for an outpatient blood transfusion in the morning for 1 unit of PRBCs. Continue plan to follow-up with hematology. Continue plan for colonoscopy with Dr. Escoto. Medical Records I reviewed the patient's medical records. Lab Data I reviewed the patient's lab results. 08/27/24 14:04 08/27/24 14:04 Laboratory Results WBC 6.62 10^3/uL (3.29-11.43) 08/27/24 14:04 RBC 1.85 10^6/uL (3.85-5.65) L 08/27/24 14:04 Hgb 6.50 g/dL (11.27-16.99) L* 08/27/24 14:04 Hct 20.0 % (36-47) L* 08/27/24 14:04 MCV 108.1 fl (85-98) H 08/27/24 14:04 MCH 35.1 pg (27-33) H 08/27/24 14:04 MCHC 32.5 g/dL (30-55) 08/27/24 14:04 RDW 17.6 % (12.1-15.1) H 08/27/24 14:04 Plt Count 160 10^3/cmm (157-399) 08/27/24 14:04 MPV 9.0 fL (7.4-10.4) 08/27/24 14:04 Neut % (Auto) 46.8 % 08/27/24 14:04 Lymph % (Auto) 43.8 % 08/27/24 14:04 [place] % (Auto) 5.7 % 08/27/24 14:04 Eos % (Auto) 2.3 % 08/27/24 14:04 Baso % (Auto) 0.5 % 08/27/24 14:04 Neut # (Auto) 3.10 10^3/uL (1.8-7.7) 08/27/24 14:04 Lymph # (Auto) 2.9 10^3/uL (0.8-4.8) 08/27/24 14:04 [place] # (Auto) 0.4 10^3/uL (0.2-0.9) 08/27/24 14:04 Eos # (Auto) 0.2 10^3/uL (0.0-0.8) 08/27/24 14:04 Baso # (Auto) 0.0 10^3/uL (0.0-0.1) 08/27/24 14:04 Nucleated RBC % (auto) 0 % 08/27/24 14:04 Nucleated RBCs # 0.0 /100WBC 08/27/24 14:04 Sodium 140 mmol/L (136-145) 08/27/24 14:04 Potassium 3.4 mmol/L (3.5-5.1) L 08/27/24 14:04 Chloride 96 mmol/L (98-107) L 08/27/24 14:04 Carbon Dioxide 31 mmol/L (22-29) H 08/27/24 14:04 Anion Gap 16.4 (5-19) 08/27/24 14:04 BUN 21 mg/dL (6-20) H 08/27/24 14:04 Creatinine 2.8 mg/dL (0.5-0.9) H 08/27/24 14:04 GFR Calculation 17.9 mL/min (90-130) L 08/27/24 14:04 Glucose 304 mg/dL (65-115) H 08/27/24 14:04 Calculated Osmolality 304 mOsm/kg (285-295) H 08/27/24 14:04 Calcium 8.8 mg/dL (8.5-10.5) 08/27/24 14:04 Phosphorus 3.1 mg/dL (2.5-4.5) 08/27/24 14:04 Magnesium 1.9 mg/dL (1.7-2.3) 08/27/24 14:04 Total Bilirubin 0.5 mg/dL (0.15-1.2) 08/27/24 14:04 AST 17 U/L (0-32) 08/27/24 14:04 ALT 14 U/L (0-33) 08/27/24 14:04 Alkaline Phosphatase 79 U/L (35-105) 08/27/24 14:04 Total Protein 6.5 g/dL (6.6-8.7) L 08/27/24 14:04 Albumin 3.8 g/dL (3.5-5.2) 08/27/24 14:04 Globulin 2.7 g/dL (1.3-4.6) 08/27/24 14:04 Blood Type A Positive 08/27/24 15:51 Rho(D) Type Rh positive 08/27/24 15:51 Antibody Screen Negative 08/27/24 15:51 Crossmatch See Detail 08/27/24 15:51 No radiology studies performed this visit Discharge Plan Discharge Patient Disposition: Home Clinical Impression: Chronic anemia Condition: Stable Prescriptions: No Action alprazolam [Xanax] 0.25 mg tablet 0.25 mg PO BID PRN (Reason: Anxiety) diphenhydramine HCl [Benadryl] 25 mg capsule 25 mg PO TID PRN (Reason: Itching) acetaminophen 325 mg capsule 325 mg PO QID PRN (Reason: Pain) pantoprazole 40 mg tablet,delayed release (DR/EC) 40 mg PO BID sodium bicarbonate 650 mg tablet 650 mg PO DAILY PRN (Reason: Dialysis) Eliquis 2.5 mg Tablet 2.5 mg PO BID ondansetron HCl 4 mg Tablet 4 mg PO Q8H PRN (Reason: Nausea) hydralazine 25 mg tablet 25 mg PO TID ropinirole 0.25 mg Tablet 0.25 mg PO BEDTIME sevelamer carbonate 800 mg tablet 1,600 mg PO TID melatonin 10 mg Capsule 10 mg PO BEDTIME RenaPlex-D 800 mcg-12.5 mg -2,000 unit Tablet 1 tab PO DAILY promethazine 25 mg tablet 25 mg PO Q4H PRN (Reason: Nausea And Vomiting) amoxicillin 500 mg capsule 500 mg PO BID carvedilol 25 mg tablet 25 mg PO BID Ozempic 1 mg/dose (4 mg/3 mL) pen injector 1 mg SUBCUT Q7D Rx Instructions: on Tuesday amlodipine 10 mg tablet 10 mg PO DAILY citalopram 20 mg tablet 20 mg PO DAILY Discharge Orders: Discharge ED (Routine); Ordered 08/27/24 Ordered By: Andie Dailey Referrals: Herber Hussein MD [Primary Care Provider, Family Practice] Activity Restrictions/Additional Instructions: As we discussed, you need to check into the [facility] at 7:45 in the morning and plan for a blood transfusion at 8 AM. Please keep your blood bank bracelet on until this appointment tomorrow. Continue to follow-up with your primary care provider as well as hematology for further evaluation of your chronic anemia. Print Language: Bolivian Coding Level of Care Code ED Scooping Machine Tender for Chg Fwd Documented by User: Rafat Samuel DO 08/27/24 18:53 HPI - Recheck/Abnormal Lab/Rx General: Chief Complaint: Recheck/Abnormal Lab/Rx Stated Complaint: sent from dialysis, abnormal labs Time Seen by Provider: 08/27/24 13:56 Related Data Home Medications ?Medication ?Instructions ?Recorded ?Confirmed acetaminophen 325 mg capsule 325 mg PO QID PRN Pain 06/19/19 08/15/24 pantoprazole 40 mg tablet,delayed 40 mg PO BID 06/19/19 08/15/24 release sodium bicarbonate 650 mg tablet 650 mg PO DAILY PRN Dialysis 09/18/19 08/15/24 apixaban 2.5 mg tablet (Eliquis) 2.5 mg PO BID 12/11/19 08/15/24 alprazolam 0.25 mg tablet (Xanax) 0.25 mg PO BID PRN Anxiety 04/01/20 08/15/24 diphenhydramine HCl 25 mg capsule 25 mg PO TID PRN Itching 04/01/20 08/15/24 (Benadryl) hydralazine 25 mg tablet 25 mg PO TID 01/21/23 08/15/24 melatonin 10 mg capsule 10 mg PO BEDTIME 01/21/23 08/15/24 ondansetron HCl 4 mg tablet 4 mg PO Q8H PRN Nausea 01/21/23 08/15/24 ropinirole 0.25 mg tablet 0.25 mg PO BEDTIME 01/21/23 08/15/24 sevelamer carbonate 800 mg tablet 1,600 mg PO TID 01/21/23 08/15/24 vit B,C-folic ac 800 mcg-zinc 12.5 1 tab PO DAILY 01/21/23 08/15/24 mg-selen-D3 2,000 unit-vit E tablet (RenaPlex-D) carvedilol 25 mg tablet 25 mg PO BID 06/04/23 08/15/24 semaglutide 1 mg/dose (4 mg/3 mL) 1 mg SUBCUT Q7D 06/04/23 08/15/24 subcutaneous pen injector (Ozempic) Held on 05/08/24. Instructions: Resume on 05/11/24. amlodipine 10 mg tablet 10 mg PO DAILY 03/22/24 08/15/24 citalopram 20 mg tablet 20 mg PO DAILY 03/22/24 08/15/24 promethazine 25 mg tablet 25 mg PO Q4H PRN Nausea And 06/07/24 08/15/24 Vomiting amoxicillin 500 mg capsule 500 mg PO BID 07/31/24 08/15/24 Allergies Allergy/AdvReac Type Severity Reaction Status Date / Time sulfamethoxazole (From Allergy Severe ALGY-Rash Verified 08/15/24 09:35 Sulfamethoxazole-Trimethoprim) trimethoprim (From Allergy Severe ALGY-Rash Verified 08/15/24 09:35 Sulfamethoxazole-Trimethoprim) adhesive tape Allergy Unknown blisters Verified 08/15/24 09:35 Cephalosporins Allergy Unknown unknown Verified 08/15/24 09:35 doxycycline Allergy ADR-Vomitin Verified 08/15/24 09:35 g latex Allergy blisters Verified 08/15/24 09:35 PFSH ED PFSH: Medical History Tachycardia Diabetes Deep vein thrombosis (DVT) during Chronic anticoagulation Squamous cell carcinoma of anal canal Diabetes mellitus End-stage renal disease Surgical History Status post surgery (05/19/20) Removal of peritoneal dialysis catheter Port-A-Cath in place S/P hemodialysis catheter insertion (01/09/20) Removed 11/18/2020 Peritoneal dialysis status H/O colonoscopy H/O hand surgery History of hip surgery History of hysterectomy Family History Other Cancer Diabetes Denies family history of Anesthesia complication Bleeding disorder Social History Smoking and tobacco/nicotine status: current every day tobacco/nicotine user Alcohol intake: never Substance/Drug Use: never Household members: family Marital status: Single Current occupational status: disabled Course Vital Signs: Vital signs: Vital Signs Temperature 98.1 F 08/27/24 14:03 Pulse Rate 95 08/27/24 15:57 Respiratory Rate 16 08/27/24 15:57 Blood Pressure 117/61 08/27/24 15:57 Pulse Oximetry 97 08/27/24 15:57 Oxygen Delivery Me thod Room Air 08/27/24 14:03 MDM - Recheck/Abnormal Lab/Rx Medical Decision Making Patient with longstanding history of anemia. She is currently following up with hematology. Hemoglobin over the past month or so has been roughly 7-8. She is 6.5 today. She is otherwise stable. Will schedule her for an outpatient blood transfusion in the morning for 1 unit of PRBCs. Continue plan to follow-up with hematology. Continue plan for colonoscopy with Dr. Escoto. Chart reviewed and patient discussed with midlevel. Agree with assessment and plan. Lab Data 08/27/24 14:04 08/27/24 14:04 Laboratory Results WBC 6.62 10^3/uL (3.29-11.43) 08/27/24 14:04 RBC 1.85 10^6/uL (3.85-5.65) L 08/27/24 14:04 Hgb 6.50 g/dL (11.27-16.99) L* 08/27/24 14:04 Hct 20.0 % (36-47) L* 08/27/24 14:04 MCV 108.1 fl (85-98) H 08/27/24 14:04 MCH 35.1 pg (27-33) H 08/27/24 14:04 MCHC 32.5 g/dL (30-55) 08/27/24 14:04 RDW 17.6 % (12.1-15.1) H 08/27/24 14:04 Plt Count 160 10^3/cmm (157-399) 08/27/24 14:04 MPV 9.0 fL (7.4-10.4) 08/27/24 14:04 Neut % (Auto) 46.8 % 08/27/24 14:04 Lymph % (Auto) 43.8 % 08/27/24 14:04 [place] % (Auto) 5.7 % 08/27/24 14:04 Eos % (Auto) 2.3 % 08/27/24 14:04 Baso % (Auto) 0.5 % 08/27/24 14:04 Neut # (Auto) 3.10 10^3/uL (1.8-7.7) 08/27/24 14:04 Lymph # (Auto) 2.9 10^3/uL (0.8-4.8) 08/27/24 14:04 [place] # (Auto) 0.4 10^3/uL (0.2-0.9) 08/27/24 14:04 Eos # (Auto) 0.2 10^3/uL (0.0-0.8) 08/27/24 14:04 Baso # (Auto) 0.0 10^3/uL (0.0-0.1) 08/27/24 14:04 Nucleated RBC % (auto) 0 % 08/27/24 14:04 Nucleated RBCs # 0.0 /100WBC 08/27/24 14:04 Sodium 140 mmol/L (136-145) 08/27/24 14:04 Potassium 3.4 mmol/L (3.5-5.1) L 08/27/24 14:04 Chloride 96 mmol/L (98-107) L 08/27/24 14:04 Carbon Dioxide 31 mmol/L (22-29) H 08/27/24 14:04 Anion Gap 16.4 (5-19) 08/27/24 14:04 BUN 21 mg/dL (6-20) H 08/27/24 14:04 Creatinine 2.8 mg/dL (0.5-0.9) H 08/27/24 14:04 GFR Calculation 17.9 mL/min (90-130) L 08/27/24 14:04 Glucose 304 mg/dL (65-115) H 08/27/24 14:04 Calculated Osmolality 304 mOsm/kg (285-295) H 08/27/24 14:04 Calcium 8.8 mg/dL (8.5-10.5) 08/27/24 14:04 Phosphorus 3.1 mg/dL (2.5-4.5) 08/27/24 14:04 Magnesium 1.9 mg/dL (1.7-2.3) 08/27/24 14:04 Total Bilirubin 0.5 mg/dL (0.15-1.2) 08/27/24 14:04 AST 17 U/L (0-32) 08/27/24 14:04 ALT 14 U/L (0-33) 08/27/24 14:04 Alkaline Phosphatase 79 U/L (35-105) 08/27/24 14:04 Total Protein 6.5 g/dL (6.6-8.7) L 08/27/24 14:04 Albumin 3.8 g/dL (3.5-5.2) 08/27/24 14:04 Globulin 2.7 g/dL (1.3-4.6) 08/27/24 14:04 Blood Type A Positive 08/27/24 15:51 Rho(D) Type Rh positive 08/27/24 15:51 Antibody Screen Negative 08/27/24 15:51 Crossmatch See Detail 08/27/24 15:51 Discharge Plan Discharge Patient Disposition: Home Clinical Impression: Chronic anemia Condition: Stable Prescriptions: No Action alprazolam [Xanax] 0.25 mg tablet 0.25 mg PO BID PRN (Reason: Anxiety) diphenhydramine HCl [Benadryl] 25 mg capsule 25 mg PO TID PRN (Reason: Itching) acetaminophen 325 mg capsule 325 mg PO QID PRN (Reason: Pain) pantoprazole 40 mg tablet,delayed release (DR/EC) 40 mg PO BID sodium bicarbonate 650 mg tablet 650 mg PO DAILY PRN (Reason: Dialysis) Eliquis 2.5 mg Tablet 2.5 mg PO BID ondansetron HCl 4 mg Tablet 4 mg PO Q8H PRN (Reason: Nausea) hydralazine 25 mg tablet 25 mg PO TID ropinirole 0.25 mg Tablet 0.25 mg PO BEDTIME sevelamer carbonate 800 mg tablet 1,600 mg PO TID melatonin 10 mg Capsule 10 mg PO BEDTIME RenaPlex-D 800 mcg-12.5 mg -2,000 unit Tablet 1 tab PO DAILY promethazine 25 mg tablet 25 mg PO Q4H PRN (Reason: Nausea And Vomiting) amoxicillin 500 mg capsule 500 mg PO BID carvedilol 25 mg tablet 25 mg PO BID Ozempic 1 mg/dose (4 mg/3 mL) pen injector 1 mg SUBCUT Q7D Rx Instructions: on Tuesday amlodipine 10 mg tablet 10 mg PO DAILY citalopram 20 mg tablet 20 mg PO DAILY Discharge Orders: Discharge ED (Routine); Ordered 08/27/24 Ordered By: Andie Dailey Referrals: Herber Hussein MD [Primary Care Provider, Family Practice] Activity Restrictions/Additional Instructions: As we discussed, you need to check into the [facility] at 7:45 in the morning and plan for a blood transfusion at 8 AM. Please keep your blood bank bracelet on until this appointment tomorrow. Continue to follow-up with your primary care provider as well as hematology for further evaluation of your chronic anemia. Print Language: Bol[place]ian Coding Level of Care Code ED Scooping Machine Tender for Chuy Fitch
[2024-08-27 14:38] LABS: Alanine Aminotransferase 14 U/L (0-33); Albumin Level 3.8 g/dL (3.5-5.2); Alkaline Phosphatase 79 U/L (35-105); Anion Gap 16.4 (5-19); Aspartate Amino Transferase 17 U/L (0-32); Blood Urea Nitrogen 21 mg/dL (6-20); Calcium 8.8 mg/dL (8.5-10.5); Carbon Dioxide 31 mmol/L (22-29); Chloride 96 mmol/L (98-107); Creatinine Clr Calc Pharmacy 26.0882; Globulin 2.7 g/dL (1.3-4.6); Glomerular Filtration Rate 17.9 mL/min (90-130); Glucose 304 mg/dL (65-115); Magnesium 1.9 mg/dL (1.7-2.3); Osmolality Calculated 304 mOsm/kg (285-295); Phosphorus 3.1 mg/dL (2.5-4.5); Potassium 3.4 mmol/L (3.5-5.1); Sodium 140 mmol/L (136-145); Total Bilirubin 0.5 mg/dL (0.15-1.2); Total Protein 6.5 g/dL (6.6-8.7)
[2024-08-27 15:57] VITALS: BP 117/61; PULSE 95; RESP 16; O2SAT 97
== END 2024-08-27 15:56 | disposition home or self-care (01) ==
PROVIDERS: Emergency Provider Physician Assistant; PCP Family Medicine
DX: D64.89 Other specified anemias (principal); Z79.01 Long term (current) use of anticoagulants; Z72.0 Tobacco use; Z85.048 Personal history of other malignant neoplasm of rectum, rectosigmoid junction, and anus; E11.22 Type 2 diabetes mellitus with diabetic chronic kidney disease; N18.6 End stage renal disease
CPT/HCPCS: 36415; 80053; 83735; 84100; 85025; 86850; 86900; 86920; 93005; 99284

== ENCOUNTER 2024-09-04 07:45 | Oncology outpatient (recurring) (ONCR) | payer MEDICARE, MEDICAID, SELFPAY ==
[2024-08-28 08:59] VITALS: BP 119/64; PULSE 101; RESP 17; TEMP 36.3; O2SAT 92
[2024-08-28] MEDS: diphenhydrAMINE 25 mg Capsule PO (09:02)
[2024-08-28] MEDS: acetaminophen 325 mg Tablet 650 MG PO (09:02)
[2024-08-28] MEDS: sodium chloride 0.9% 250 mL Bag IV (09:28)
[2024-08-28 09:32] VITALS: BP 129/72; PULSE 90; RESP 17; TEMP 36.4; TEMP 36.6; O2SAT 98
[2024-08-28 09:54] VITALS: BP 132/72; PULSE 93; RESP 17; TEMP 36.2; O2SAT 98
[2024-08-28 10:26] VITALS: BP 148/73; PULSE 91; RESP 17; TEMP 36.2; O2SAT 96
[2024-08-28 10:55] VITALS: BP 143/77; PULSE 91; RESP 17; TEMP 36.6; O2SAT 97
[2024-08-28 11:28] VITALS: BP 135/66; PULSE 89; RESP 16; TEMP 36.4; O2SAT 96
[2024-09-04 08:28] LABS: Basophils # 0.1 10^3/uL (0.0-0.1); Eosinophils # 0.2 10^3/uL (0.0-0.8); Eosinophils % 4.7 %; Hematocrit 23.8 % (36-47); Lymphocytes # 1.9 10^3/uL (0.8-4.8); Lymphocytes % 37.5 %; Mean Corpuscular HGB Conc 32.8 g/dL (30-55); Mean Corpuscular Hemoglobin 35.1 pg (27-33); Mean Corpuscular Volume 107.2 fl (85-98); Mean Platelet Volume 9.4 fL (7.4-10.4); Monocytes # 0.2 10^3/uL (0.2-0.9); Monocytes % 4.3 %; Neutrophils # 2.64 10^3/uL (1.8-7.7); Neutrophils % 51.5 %; Nucleated Red Blood Cells % 0 %; Platelet Count 140 10^3/cmm (157-399); Red Blood Count 2.22 10^6/uL (3.85-5.65); Red Cell Distribution Width 18.6 % (12.1-15.1); White Blood Count 5.12 10^3/uL (3.29-11.43)
[2024-09-04 08:46] LABS: Alanine Aminotransferase 14 U/L (0-33); Albumin Level 3.9 g/dL (3.5-5.2); Alkaline Phosphatase 89 U/L (35-105); Anion Gap 16.3 (5-19); Aspartate Amino Transferase 18 U/L (0-32); Blood Urea Nitrogen 36 mg/dL (6-20); Calcium 9.1 mg/dL (8.5-10.5); Carbon Dioxide 28 mmol/L (22-29); Chloride 102 mmol/L (98-107); Glucose 262 mg/dL (65-115); Osmolality Calculated 311 mOsm/kg (285-295); Potassium 4.3 mmol/L (3.5-5.1); Sodium 142 mmol/L (136-145); Total Protein 6.9 g/dL (6.6-8.7)
--- NOTE | 2024-09-04 09:37 | PC.NURSE ---
pt took tylenol at home
[2024-09-04] MEDS: sodium chloride 0.9% 100 mL Bag 50 ML IV (09:38)
[2024-09-04] MEDS: diphenhydrAMINE 25 mg Capsule PO (09:39)
[2024-09-04 10:30] LABS: Vitamin B12 666 pg/mL (232-1245)
[2024-09-04 10:34] VITALS: BP 142/77; TEMP 36.6; O2SAT 93
[2024-09-04 10:49] VITALS: BP 144/80; PULSE 109; TEMP 36.9; O2SAT 92
[2024-09-04] MEDS: acetaminophen 325 mg Tablet 650 MG PO (10:57)
[2024-09-04 11:04] VITALS: BP 157/77; PULSE 111; TEMP 36.4; O2SAT 97
[2024-09-04 11:29] LABS: Total Bilirubin 0.4 mg/dL (0.15-1.2)
[2024-09-04 11:36] VITALS: BP 151/78; PULSE 105; RESP 16; TEMP 36.8; O2SAT 97
[2024-09-04 12:04] VITALS: BP 160/76; PULSE 100; RESP 18; TEMP 36.6; O2SAT 93
[2024-09-04 12:27] VITALS: BP 160/76; PULSE 100; RESP 16; TEMP 36.6; O2SAT 93
[2024-09-04 12:35] LABS: Estmated Average Glucose 103; Hemoglobin A1C 5.2 % (4.0-6.0)
== END 2024-09-17 23:59 | disposition home or self-care (01) ==
PROVIDERS: Nurse Practitioner; PCP Family Medicine; Visit Provider Internal Medicine Medical Oncology
DX: Z53.9 Procedure and treatment not carried out, unspecified reason (principal); C21.0 Malignant neoplasm of anus, unspecified; R73.9 Hyperglycemia, unspecified; D50.9 Iron deficiency anemia, unspecified; F17.200 Nicotine dependence, unspecified, uncomplicated; Z95.828 Presence of other vascular implants and grafts; N18.6 End stage renal disease; Z92.21 Personal history of antineoplastic chemotherapy; Z92.3 Personal history of irradiation; R06.02 Shortness of breath; R53.1 Weakness; Z79.899 Other long term (current) drug therapy; Z99.2 Dependence on renal dialysis
CPT/HCPCS: 36415; 36430; 80053; 82607; 83036; 85025; 86850; 86900; 86920; 99214; J7050; J9999; P9016

== ENCOUNTER 2024-09-18 10:25 | Oncology outpatient (recurring) (ONCR) | payer MEDICARE, MEDICAID, SELFPAY ==
[2024-09-18 10:45] LABS: Hematocrit 28.8 % (36-47); Hemoglobin 9.30 g/dL (11.27-16.99); Mean Corpuscular HGB Conc 32.3 g/dL (30-55); Mean Corpuscular Hemoglobin 33.7 pg (27-33); Mean Corpuscular Volume 104.3 fl (85-98); Nucleated Red Blood Cells % 0 %; Platelet Count 136 10^3/cmm (157-399); Red Blood Count 2.76 10^6/uL (3.85-5.65); White Blood Count 6.86 10^3/uL (3.29-11.43)
[2024-09-18 11:03] LABS: Alanine Aminotransferase 10 U/L (0-33); Albumin Level 4.0 g/dL (3.5-5.2); Alkaline Phosphatase 78 U/L (35-105); Anion Gap 17.8 (5-19); Aspartate Amino Transferase 15 U/L (0-32); Blood Urea Nitrogen 32 mg/dL (6-20); Calcium 9.5 mg/dL (8.5-10.5); Carbon Dioxide 25 mmol/L (22-29); Chloride 101 mmol/L (98-107); Creatinine Clr Calc Pharmacy 18.2617; Globulin 2.8 g/dL (1.3-4.6); Glucose 180 mg/dL (65-115); Osmolality Calculated 301 mOsm/kg (285-295); Potassium 3.8 mmol/L (3.5-5.1); Sodium 140 mmol/L (136-145); Total Protein 6.8 g/dL (6.6-8.7)
== END 2024-10-18 23:59 | disposition home or self-care (01) ==
PROVIDERS: Nurse Practitioner; PCP Family Medicine; Visit Provider Internal Medicine Medical Oncology
DX: D64.9 Anemia, unspecified (principal); N18.6 End stage renal disease; F17.200 Nicotine dependence, unspecified, uncomplicated; Z95.828 Presence of other vascular implants and grafts; Z99.2 Dependence on renal dialysis; Z92.21 Personal history of antineoplastic chemotherapy; Z92.3 Personal history of irradiation; Z79.899 Other long term (current) drug therapy
CPT/HCPCS: 36415; 80053; 82668; 83615; 85025; 86850; 86900; 99214

== ENCOUNTER 2024-09-25 21:36 | Emergency (ER) | payer MEDICARE, MEDICAID, SELFPAY ==
--- OUTSIDE RECORDS SUMMARY | 2024-09-25 21:42 | XMS_ITS | Data Portability ---
Author Organization DEMETRA Андрей Marinelli [facility] Address [address] [facility] [address] [place] [address] Care Team Providers Care Patrol Conductor Name Role Phone ALICIA HUSSEIN Primary Care Provider Unavailomar e Assessment No assessment recorded. Plan of Treatment Reminders Order Date Submit Date Provider Last Modified By Organization Details Last Modified Time Details Appointments RECHECK 15 2024 01:00P Courtney Hussein MD Not available Not available Not available Lab urinalys is, complete 2024 025 [facility], [address] [facility] [address], [address], [place], [address], 07/30/2024 13:33:07 culture, urine 2024 025 [facility], [address] [place] [address] 248, [facility] [address], [address], 08/01/2024 16:46:06 Referral colon & rectal surgeon referral 2024 025 [email or web address] Not available 06/06/2024 15:08:36 Procedures None recorded . Surgeries None recorded . Imaging None recorded . Medication Orders citalopr am 20 mg tablet 2024 025 NAYELY [id number], [address], [address], [place], [address], 07/30/2024 12:54:20 amoxicil neel 500 mg capsule 2024 025 lei [id number], [address], [address], [place], [address], 08/15/2024 17:13:20 sodium bicarbon ate 650 mg tablet 2024 025 [email or web address] [id number], [address], [address], [place], [address], 07/30/2024 13:53:02 amoxicil neel 875 mg tablet 2024 025 [id number] [address], [address], [place], [address], 09/01/2024 05:01:13 olopatad ine 0.1 % eye drops 2024 025 [id number], [address], [address], [place], [address], 06/08/2024 15:55:29 cetirizi ne 5 mg tablet 2024 025 [id number], [address], [address], [place], [address], 06/08/2024 15:55:28 ondanset felicitas HCl 4 mg tablet 2023 024 [email or web address] [id number], [address], [address], [place], [address], 03/06/2024 13:16:35 sodium bicarbon ate 650 mg tablet 2023 024 [id number], [address], [address], [place], [address], 03/06/2024 13:16:33 prometha zine 25 mg tablet 2023 024 [facility][id number], [address], [address], [place], [address], 12/06/2023 17:08:38 pantopra zole 40 mg tablet,d elayed release 2023 024 [id number], [address], [address], [place], [address], 12/06/2023 17:08:35 Patient TargetsNo targets recorded. Patient InstructionsNo instructions recorded. Reason for Referral Colon & Rectal Surgeon Refer ral for Mass of colon Referring Physician: Alicia Hussein, Family Medicine, Encounter Date: 05/21/2024 Results Created Date Observation Date Name Description Value Unit Range Abnormal Flag Note LastModifiedBy Organization Detail LastModifiedTime 07/31/1907/30/2024 URINA LYSIS WITH MICRO color YELLOW Not Available [facility] [address] [facility] [address] [facility], [place], [address], 07/30/2024 13:33:07 07/31/19 25 07/30/2024 URINA LYSIS WITH MICRO clarity CLEAR Not Available [facility] [address] [facility] [address], [place], [address], 07/30/2024 13:33:07 07/31/19 25 07/30/2024 URINA LYSIS WITH MICRO glu TRACE Not Available [facility] [address], [place], [address], 07/30/2024 13:33:07 07/31/19 25 07/30/2024 URINA LYSIS WITH MICRO bili NEGATI VE Not Available [facility] [address] [facility] [address] [facility] [address], [place], [address], 07/30/2024 13:33:07 07/31/19 25 07/30/2024 URINA LYSIS WITH MICRO ket NEGATI VE Not Available [facility] [address], [place], [address], 07/30/2024 13:33:07 07/31/19 25 07/30/2024 URINA LYSIS WITH MICRO S.g 1.020 1.005- 1.025 Not Available [facility] [address], [place], [address], 07/30/2024 13:33:07 07/31/19 25 07/30/2024 URINA LYSIS WITH MICRO pH 8.5 5.0-7. 0 high Not Available [facility] [address], [place], [address], 07/30/2024 13:33:07 07/31/19 25 07/30/2024 URINA LYSIS WITH MICRO pro 3+ Not Available [facility] [address], [place], [address], 07/30/2024 13:33:07 07/31/19 25 07/30/2024 URINA LYSIS WITH MICRO uro 0.2 Not Available [facility] [address] [facility] [address], [place], [address], 07/30/2024 13:33:07 07/31/19 25 07/30/2024 URINA LYSIS WITH MICRO nit NEGATI VE Not Available [facility] [address], [place], [address], 07/30/2024 13:33:07 07/31/19 25 07/30/2024 URINA LYSIS WITH MICRO blo TRACE Not Available [facility] [address], [place], [address], 07/30/2024 13:33:07 07/31/19 25 07/30/2024 URINA LYSIS WITH MICRO shanita NEGATI VE Not Available [facility] [address] [facility], [place], [address], 07/30/2024 13:33:07 07/31/19 25 07/30/2024 URINA LYSIS WITH MICRO WBC 6-8 Not Available [facility] [address] [facility] [address], [place], [address], 07/30/2024 13:33:07 07/31/19 25 07/30/2024 URINA LYSIS WITH MICRO RBC 1-3 Not Available [facility] [address] [facility] [address], [place], [address], 07/30/2024 13:33:07 07/31/19 25 07/30/2024 URINA LYSIS WITH MICRO epi cells 8-10 Not Available Андрей [facility] [address] [facility] [address], [place], [address], 07/30/2024 13:33:07 07/31/19 25 07/30/2024 URINA LYSIS WITH MICRO bacteria TRACE MIXED BERTHA Not Available [facility] [address] [facility] [address], [place], [address], 07/30/2024 13:33:07 07/31/19 25 07/30/2024 URINA LYSIS WITH MICRO other NEGATI VE Not Available [facility] [address] [facility] [address], [place], [address], 07/30/2024 13:33:07 07/31/19 25 08/01/2024 CULTU RE, URINE , ROUTI NE culture, urine, routine SEE NOTE abnormal CULTU RE, URINE , ROUTI NE Micro Numbe r: [id number] Test Statu s: Final Speci men Sourc e: Urine Speci men Quali ty: Adequ ate Resul t: Great er than 100,0 00 CFU/m L of Prote us mirab ilis P.aldo abili s ----- ----- ----- - INT J LUIS AMOX/ CLAVU LANAT E S <=2 AMP/S ULBAC ALMEIDA S <=2 CEFAZ MAGGY NR <=4 2 CEFEP CJ S <=0.1 2 CEFTA ZIDIM E S <=1 CEFTR IAXON E S <=0.2 5 CIPRO FLOXA SON S <=0.0 6 GENTA MICIN S <=1 LEVOF LOXAC IN S <=0.1 2 MEROP ENEM S <=0.2 5 NITRO FURAN TOIN R 128 PIP/T AZOBA CTAM S <=4 TRIME THOPR IM/PEARCE LFA S <=20 S = Susce ptibl e I = Inter media te R = Resis tant NS = Not susce ptibl e SDD = Susce ptibl e Dose Depen dent * = Not Teste d NR = Not Repor wanda NN = See Thera py Comme nts THERA PY COMME NTS Note 1: For infec tions other than uncom plica wanda UTI cause d by E. coli, K. pneum oniae or P. mirab ilis: Cefaz maggy is resis tant if J LUIS > or = 8 mcg/m L. (Dist ingui shing susce ptibl e versu s inter media te for isola ann with J LUIS < or = 4 mcg/m L requi res addit ional testi ng.) Note 2: For uncom plica wanda UTI cause d by E. coli, K. pneum oniae or P. mirab ilis: Cefaz maggy is susce ptibl e if J LUIS <32 mcg/m L and predi cts susce ptibl e to the oral agent s cefac patricio, cefdi neelima, cefpo doxim e, cefpr ozil, cefur oxime , cepha lexin and lorac arbef . Not Available [facility] [address] [facility], [place], [address], 08/01/2024 16:46:06 09/12/1909/06/2024 colon oscop y proce dure (PROC ) No observ ation record ed. [email or web address] Not Available 09/12 10:11:12 Result Notes None recorded. Problems Name Problem SNOMED Code Status Onset Date Resolution Date Notes Provider Name and Address Organization Details Recorded Time Migraine 28604664 Completed 202205/21/2024 LEEANNE fajardo [facility], L.L.CMireya 14:14:57 Complica tion due to diabetes mellitus type 2 Active 2022 TYPE II DIABETES MELLITUS WITH COMPLICA TION, UNCONTRO LLED; Impressi on: better control by report. 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 5 14:11:19 Generali zed anxiety disorder 92354303 Active 2022 LEEANNE MARKELL [facility] 5 14:10:11 Atypical chest pain 128612199 Active 2022 LEEANNE GUILLAUME [facility] 5 17:03:13 Restless legs 72324212 Active 2022 [facility] GUILLAUME [facility] 5 14:10:11 Coronary atherosc lerosis 617642181 Active 2023 [facility] 5 14:15:17 Bilatera l cataract s 53599849 Completed 202305/21/2024 LEEANNE GUILLAUME [facility] 5 14:12:49 Coronary arterios clerosis 78845653 Active 2023 LEEANNE GUILLAUME [facility] 5 14:10:11 Hematoch ezia 316755729 Completed 202305/21/2024 [facility] GUILLAUME [facility] 5 14:16:31 Major depressi ve disorder 094901549 Active 2023 LEEANNE GUILLAUME [facility] 5 14:10:11 Iron deficien cy anemia 39969004 Active 2023 [facility] 5 14:10:11 Tenderne ss of right upper quadrant of abdomen 505371517 Completed 202305/21/2024 [facility] 5 14:16:31 Gastroes ophageal reflux disease 820293449 Active 2023 [facility] 14:10:11 Dependen ce on renal dialysis 623636291 Active [facility] 5 14:10:11 Chronic ulcer of right foot Active [facility] 5 14:10:11 Fracture of inferior pubic ramus 747864736 Completed 06/08/2024 [place] scotty [facility] 5 15:22:54 Tachycar sanjay 7722864 Active [facility]illicent [facility] 5 14:10:11 Hypoxia 250398542 Completed 06/08/2024 [place] scotty [facility] 5 15:22:54 Congesti ve heart failure 59586640 Active [facility]illicent [facility] 5 17:03:13 Antepart um deep vein thrombos is 55400685 Active [facility]illicent [facility] 5 14:10:11 At increase d risk of impaired respirat ory system function 127550285 Completed 06/08/2024 BHUPINDER fajardo [facility] 5 15:22:54 Long-ter m current use of anticoag ulant 641351453 Completed 06/08/2024 BHUPINDER fajardo [facility] 5 15:22:54 Dystroph ia unguium 65710794 Completed 06/08/2024 BHUPINDER fajardo [facility] 5 15:22:54 Harmful pattern of use of psychoac tive [facility] e 19954460 Completed 06/08/2024 [facility] 5 15:22:54 Chronic ulcer of left foot Completed 06/08/2024 BHUPINDER fajardo [facility] 5 15:22:54 Neuropat hic ulcer of right foot Completed 06/08/2024 [facility] 5 15:22:54 Injury of left wrist 60536394926 329360 Completed 06/08/2024 BHUPINDER fajardo [facility] 5 15:22:54 Sprain of left wrist 43880010783 496667 Completed 06/08/2024 [facility] 5 15:22:54 Deep venous thrombos is 337992323 Completed 06/08/2024 [facility] 5 15:22:54 Foot callus 052627950 Completed 06/08/2024 BHUPINDER fajardo [facility] 5 15:22:54 Dyspnea 182999203 Completed 06/08/2024 [facility] 5 15:22:54 Subungua l hematoma of foot 936725744 Completed 06/08/2024 BHUPINDER fajardo [facility] 5 15:22:54 Ulcer of big toe 929840597 Completed 06/08/2024 BHUPINDER fajardo [facility] 5 15:22:54 Bronchit is 49414015 Completed 06/08/2024 BHUPINDER fajardo, [facility] 5 15:22:54 Dehydrat ion 61336854 Completed 06/08/2024 BHUPINDER fajardo, [facility] 5 15:22:54 Malignan t tumor of anal canal 005698925 Completed 06/08/2024 BHUPINDER fajardo, [facility] 5 15:22:54 Hypoxemi a 496300940 Completed 06/08/2024 BHUPINDER fajardo, [facility], Juan.L.C. 5 15:22:54 History of procedur e 022880863 Completed 201906/08/2024 BHUPINDER fajardo, [facility] 5 15:22:54 Vomiting 497751225 Completed 06/08/2024 BHUPINDER fajardo, [facility] 5 15:22:54 Dependen ce on peritone al dialysis 500647440 Completed 06/08/2024 BHUPINDER fajardo, [facility] 5 15:22:54 End-stag e renal disease 10368028 Completed 06/08/2024 BHUPINDER fajardo, [facility] 5 15:22:54 Acute hypokale zachery 95650015 Completed 06/08/2024 BHUPINDER fajardo, [facility] 5 15:22:54 Preopera tive state 01694515 Completed 06/08/2024 BHUPINDER fajardo, [facility], L.L.CMireya 5 15:22:54 COVID-19 165080468 Completed 06/08/2024 [facility] 5 15:22:54 Suspecte d COVID-19 485999727 Completed 06/08/2024 [place] [facility], [facility] 5 15:22:54 Mass of colon 507482572 Completed 202406/08/2024 [place] [facility] 5 15:22:54 Acute sinusiti s 09420409 Active 2024 Alicia Hussein MD [address] [place] [address], [address] [place] [address] 5, [facility] 5 15:49:21 Allergic conjunct ivitis of bilatera l eyes 77772358919 9102 Active 2024 Alicia Hussein MD [address] [place] [address], [address], [facility] 5 15:51:32 Left flank pain 911748654 Active 2024 Alicia Hussein MD [address] [place] [address], [address] [place] [address] 5, [facility] 5 12:47:56 Essentia l hyperten arnold 88028013 Active 2022 LEEANNE GUILLAUME [facility] 5 14:10:11 Problem Notes None recorded. Medical Equipment None Reported. Allergies Allergen ID Allergen Name Allergen Category Reaction Reaction Severity Criticality Documentation Date Start Date Code Code System Note Provider Name and Address Organization Details Recorded Time 92961 pseudoeph edrine tannate medicatio n itching rash mild mild low 10/16/2022 50599 1 RxNorm Samantha Perez [facility] 4 11:38:45 16279 Ceftin medicatio n itching rash mild mild low 10/16/2022 72810 6 RxNorm [facility], L.L.CMireya 4 11:38:26 67261 doxycycli ne hyclate medicatio n vomiting moderate low 10/16/2022 64607 RxNorm Samanthadavid Perez [facility], LMireyaL.CMireya 4 11:38:31 23923 acetamino phen / dextromet horphan / guaifenes in / pseudoeph edrine medicatio n Not available Not available Not available 10/16/2022 87515 8 RxNorm Samantha Perez [facility], LMireyaL.CMireya 4 11:38:46 56820 doxycycli ne Not available Not available Not available Not available 03/06/20242023 3640 RxNorm [facility] L.L.CMireya 4 12:28:55 99040 latex environme nt,medica tion Not available Not available Not available 03/06/20242023 11390 91 RxNorm [facility], L.L.CMireya 4 12:28:55 Medications Name Sig Start Date Stop Date Status Note LastModified by Organization Details LastModified Time amoxicill in 500 mg capsule Take 1 capsule twice a day by oral route for 5 days. 2024 active Not Available Not Available Not Avai lable carvedilo l 25 mg tablet TAKE 1 TABLET BY MOUTH TWICE A DAY active Not Available Not Available No t Available doxycycli ne hyclate 100 mg capsule TAKE 1 CAPSULE BY MOUTH TWICE A DAY FOR 10 DAYS 10/19 completed Not Available Not Available Not Available carvedilo l 12.5 mg tablet TAKE 1 TABLET BY MOUTH TWICE A DAY 06/13 completed Not Available Not Available Not Available citalopra m 40 mg tablet TAKE 1 TABLET BY MOUTH EVERY DAY 08/08 completed Not Available Not Available Not Available cetirizin e 10 mg tablet TAKE 1 TABLET BY MOUTH EVERY DAY NEEDED FOR SKIN ALLERGIE S 04/19 completed Not Available Not Available Not Available cetirizin e 5 mg tablet Take 1 tablet every day by oral route as needed for 30 days. 2024 active Not Available Not Available Not Avai lable hydrocodo ne 5 mg-acetam inophen 325 mg tablet Take 1 tablet every 6 hours by oral route. active Not Available Not Available No t Available sucralfat e 100 mg/mL oral suspensio n TAKE 10 ML BY MOUTH BEFORE MEALS AND AT BEDTIME FOR 4 WEEKS 12/05 completed Not Available Not Available Not Available ondansetr on HCl 4 mg tablet Take 1 tablet twice a day by oral route as needed for 30 days. active Not Available Not Available No t Available prednison e 20 mg tablet 08/08 completed Not Available Not Available Not Available diphenoxy late-atro pine 2.5 mg-0.025 mg tablet TAKE 1 TABLET BY MOUTH FOUR TIMES A DAY NEEDED active Not Available Not Available No t Available hydralazi ne 25 mg tablet TAKE 1 TABLET BY MOUTH THREE TIMES A DAY active Not Available Not Available No t Available levofloxa son 250 mg tablet TAKE 2 TABLETS BY MOUTH DAY 1 THEN 1 TABLET EVERY OTHER DAY 10/19 completed Not Available Not Available Not Available amlodipin e 5 mg tablet TAKE 1 TABLET BY MOUTH EVERY DAY 12/05 completed Not Available Not Available Not Available sulfameth oxazole 800 mg-trimet hoprim 160 mg tablet TAKE 1 TABLET BY MOUTH DAILY AFTER DIALYSIS 06/08 completed Not Available Not Available Not Available tramadol 50 mg tablet TAKE 1-2 TABLETS BY MOUTH EVERY 6 HOURS NEEDED 06/08 completed Not Available Not Available Not Available carvedilo l 3.125 mg tablet TAKE 1 TABLET BY MOUTH TWICE A DAY FOR 90 DAYS. 04/04 completed Not Available Not Available Not Available ondansetr on 8 mg disintegr ating tablet active Not Available Not Available Not Available lidocaine -prilocai ne 2.5 %-2.5 % topical cream APPLY SMALL AMOUNT TO ACCESS SITE (AVF) 1 HOUR BEFORE DIALYSIS . COVER WITH OCCLUSIV E DRESSING (SARAN WRAP) 11/16 completed Not Available Not Available Not Available amoxicill in 875 mg tablet Take 1 tablet every 12 hours by oral route for 10 days. 09/01 completed Not Available Not Available Not Available alprazola m 0.25 mg tablet TAKE 1 TABLET BY MOUTH TWICE A DAY NEEDED 2024 active Not Available Not Available Not Avai lable citalopra m 20 mg tablet Take 1 tablet every day by oral route for 30 days. 2024 active Not Available Not Available Not Avai lable prednisol one acetate 1 % eye drops,araseli pension INSTILL 1 DROP INTO LEFT EYE 4 TIMES A DAY 10/10 completed Not Available Not Available Not Available linezolid 600 mg tablet TAKE 1 TABLET BY MOUTH TWICE DAILY 08/08 completed Not Available Not Available Not Available ropinirol e 0.25 mg tablet TAKE 1 TABLET BY MOUTH EVERY DAY IN THE EVENING FOR 90 DAYS active Not Available Not Available No t Available [employer] Angel Ultra Test strips CHECK SUGAR DAILY active Not Available Not Available No t Available piperacil neel-tazob actam 3.375 gram intraveno us solution 04/19 completed Not Available Not Available Not Available sodium bicarbona te 650 mg tablet TAKE 1 TABLET BY MOUTH THREE TIMES A DAY FOR 30 DAYS active Not Available Not Available No t Available amlodipin e 10 mg tablet TAKE 1 TABLET BY MOUTH EVERY DAY 2024 active Not Available Not Available Not Avai lable pantopraz ole 40 mg tablet,de layed release TAKE 1 TABLET BY MOUTH TWICE A DAY 2024 active Not Available Not Available Not Avai lable olopatadi ne 0.1 % eye drops INSTILL 1 DROP INTO AFFECTED EYE TWICE A DAY AT AN INTERVAL OF 6 TO 8 HOURS active Not Available Not Available No t Available promethaz ine 25 mg tablet TAKE 1 TABLET BY MOUTH EVERY 4 HOURS NEEDED active Not Available Not Available No t Available mupirocin 2 % topical ointment APPLY A SMALL AMOUNT TO AFFECTED AREA 3 TIMES A DAY 04/19 completed Not Available Not Available Not Available levofloxa son 750 mg tablet TAKE 1 TABLET BY MOUTH EVERY DAY 08/08 completed Not Available Not Available Not Available albuterol sulfate HFA 90 mcg/actua tion aerosol inhaler Inhale 2 inhalati ons by inhalati on route. 06/08 completed Not Available Not Available Not Available oxycodone 5 mg tablet TAKE 1 TABLET BY MOUTH EVERY 6 HOURS NEEDED 02/28 completed Not Available Not Available Not Available Novolog FlexPen U-100 Insulin aspart 100 unit/mL (3 mL) subcutane ous INJECT 5 UNITS EVERY DAY BY SUBCUTAN EOUS ROUTE NEEDED. 08/08 completed Not Available Not Available Not Available moxifloxa son 0.5 % eye drops INSTILL 1 DROP INTO LEFT EYE 4 TIMES A DAY 10/10 completed Not Available Not Available Not Available bupropion HCl XL 150 mg 24 hr tablet, extended release TAKE 1 TABLET BY MOUTH EVERY 72 HOURS FOR 30 DAYS 08/16 completed Not Available Not Available Not Available tizanidin e 4 mg capsule three times daily, as needed 2020 active Not Available Not Available Not Avai lable sodium chloride 0.9 % intraveno us piggyback 11/16 completed Not Available Not Available Not Available Coreg BID 10/19 completed 0; Recorded 06/08/19 23 2:50PM by Leeanne Guillaume, Office Visit; Not Available Not Available Not Available citalopra m daily 10/19 completed Recorded 10/06/19 22 2:34PM by Alicia Hussein MD, Office Visit; Refill Quantity : 90; Tablet; Not Available Not Available Not Available Atarax 08/08 completed Not Available Not Available Not Available alprazola m two times daily, as needed 10/19 completed Recorded 05/27/19 12:04PM by Alicia Hussein MD, Refill Request; Refill Quantity : 30; Tablet; Not Available Not Available Not Available Phenergan as needed 12/10 completed 0; Recorded 06/08/19 23 2:50PM by Leeanne Guillaume, Office Visit; Not Available Not Available Not Available Lomotil four times daily, as needed 12/10 completed Recorded 06/08/19 23 3:21PM by Alicia Hussein MD, Office Visit; Refill Quantity : 20; Tablet; Not Available Not Available Not Available One Touch Ultra Test Strips daily 12/10 completed Recorded 05/23/19 1:44PM by Leeanne Guillaume, Office Visit; Refill Quantity : 100; Each; Not Available Not Available Not Available OneTouch Ultra Control as directes d 12/10 completed Recorded 05/23/19 1:44PM by Leeanne Guillaume, Office Visit; Refill Quantity : 10; Millilit er; Not Available Not Available Not Available BD Ultra-Fin e Short Pen Needle 31 gauge x 5/16 active Not Available Not Available Not Available Januvia 25 mg tablet Take 1 tablet every day by oral route. 12/05 completed Not Available Not Available Not Available sevelamer carbonate 800 mg tablet TAKE 2 TABLETS BY MOUTH THREE TIMES DAILY WITH MEALS active Not Available Not Available No t Available melatonin 10 mg tablet 10 mg as needed by oral route. active Not Available Not Available No t Available Eliquis 2.5 mg tablet TAKE 1 TABLET BY MOUTH TWICE A DAY active Not Available Not Available No t Available Eliquis two times daily 10/19 completed Unable to keep patient at therapeu tic level on Coumadin RM/CC; Recorded 06/08/19 12:26PM by Alicia Hussein MD, Refill Request; Refill Quantity : 60; Tablet; Not Available Not Available Not Available guaifenes in ER 600 mg tablet, extended release 12 hr TAKE 2 TABLETS BY MOUTH TWICE DAILY 06/13 completed Not Available Not Available Not Available semagluti de 1 mg/dose (2 mg/1.5 mL) subcutane ous pen injector Inject 1 mg by sub-q route. 06/08 completed Not Available Not Available Not Available Ozempic weekly 10/19 completed Recorded 04/09/19 5:44PM by Alicia Hussein MD, Refill Request; Refill Quantity : 3; Millilit er; Not Available Not Available Not Available RenaPlex- D 800 mcg-12.5 mg-2,000 unit tablet TAKE 1 TABLET BY MOUTH EVERY DAY active Not Available Not Available No t Available vancomyci n 1 gram/200 mL in diluent combinati on IV piggyback Inject 1 g 3 times a week by intraven ous route. 10/10 completed Not Available Not Available Not Available OneTouch Ultra2 Meter CHECK SUGAR DAILY active Not Available Not Available No t Available OneTouch Delica Plus Lancet 30 gauge CHECK SUGAR DAILY active Not Available Not Available No t Available OneTouch Delica Plus Lancet daily 12/10 completed FOR NIDDM.. E11.9. What ever kind insuranc e will cover.; Recorded 02/06/20 12:24PM by Alicia Hussein MD, Refill Request; Refill Quantity : 100; Applicat or; Not Available Not Available Not Available Ozempic 1 mg/dose (4 mg/3 mL) subcutane ous pen injector INJECT 1 MG UNDER THE SKIN ONE TIME PER WEEK 2024 active Not Available Not Available Not Avai lable Korsuva 50 mcg/mL intraveno us solution 40 microgra ms 3 times a week by intraven . route. active Not Available Not Available No t Available Vitals Date Recorded Body height Body mass index (BMI) Body weight Oxygen saturation Oxygen saturation in Arterial blood by Pulse oximetry Heart rate Systolic And Diastolic Provider Name and Address Organization Details Last Updated DateTime 5 175.26 cm 24.5 kg/m2 08854.3 3 g 94 % 94 % 97 /min 130/62 mm[Hg] [facility] 5 17:12:23 Date Recorded Body height Body mass index (BMI) Body weight Heart rate Systolic And Diastolic Provider Name and Address Organization Details Last Updated DateTime 06/08/2024 175.26 cm 23.5 kg/m2 74242.19 g 94 /min 105/50 mm[Hg] [facility] 5 15:12:18 Date Recorded Body height Body mass index (BMI) Body weight Oxygen saturation Oxygen saturation in Arterial blood by Pulse oximetry Heart rate Systolic And Diastolic Provider Name and Address Organization Details Last Updated DateTime 5 175.26 cm 23.9 kg/m2 21128.9 6 g 90 % 90 % 54 /min 110/70 mm[Hg] [facility] 5 12:13:42 Date Recorded Body height Body mass index (BMI) Body weight Heart rate Systolic And Diastolic Provider Name and Address Organization Details Last Updated DateTime 12/06/2023 175.26 cm 23.5 kg/m2 81297.19 g 88 /min 148/78 mm[Hg]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
[2024-09-25 22:20] VITALS: BP 200/78; PULSE 115; RESP 24; TEMP 36.4; O2SAT 98; BMI 23.6
[2024-09-25 23:31] LABS: Glucose Urine UA 1+ (Normal); Nitrate Urine Negative (Negative); Specific Gravity, Urine 1.013 (1.005-1.030)
[2024-09-25 23:36] LABS: Add Urine Microscopic? YES
== END 2024-09-25 23:38 | disposition left against medical advice (07) ==
LOC: ER 21:41
PROVIDERS: Emergency Medicine; Emergency Provider Family Medicine; PCP Family Medicine
DX: Z01.89 Encounter for other specified special examinations (principal); Z53.21 Procedure and treatment not carried out due to patient leaving prior to being seen by health care provider
CPT/HCPCS: 81001

== ENCOUNTER 2024-09-26 07:14 | Emergency (ER) | payer MEDICARE, MEDICAID, SELFPAY ==
[2024-09-26 07:15] VITALS: BP 197/93; PULSE 119; RESP 20; TEMP 36.6; O2SAT 99
--- NOTE | 2024-09-26 07:15 | XR_ITS ---
WS: [email or web address] Exam: XR chest 1V portable [id number] Date/Time of Exam: 09/26/2024 7:16 AM Reason For Exam: cp Comparison 08/16/2024. The lungs are fully inflated. There are chronic interstitial changes in the mid and upper lung zones. LEFT subclavian port ends in the lower one third of the SVC. Unremarkable cardiomediastinal silhouette. Bony structures are normal. No pleural effusions. XR/XR chest 1V portable [id number] IMPRESSION: 1. Chronic interstitial changes in the upper lung zones. No acute finding.
--- NOTE | 2024-09-26 07:20 | ECG_ITS ---
[facility] Date: 2024-09-26 Pat Name: Bharati Anthony Department: Room: Gender: Female Hot Molder: : 1975 Requested By: Nohemi Rivero Order Number: [id number] Dung MD: Hector Moe M.D. Measurements Intervals [place] Rate: 118 P: 83 IN: 135 QRS: 7 QRSD: 104 T: 101 QT: 366 QTc: 514 Interpretive Statements SINUS TACHYCARDIA LEFT ATRIAL ENLARGEMENT [-0.15mV P-WAVE IN V1/V2] LEFT VENTRICULAR HYPERTROPHY AND ST-T CHANGE [VOLTAGE CRITERIA PLUS ST/T ABNORMALITY] INTERPRETATION BASED ON A DEFAULT AGE OF 40 YEARS Compared to ECG 08/27/2024 14:04:06 Atrial abnormality now present ST (T wave) deviation still present Electronically Signed On 09-26-2024 20:16:45 CDT by Hector Moe M.D. [email or web address]
--- NOTE | 2024-09-26 07:30 | CT_ITS ---
WS: [email or web address] Exam: CT abdomen pelvis con [id number] Date/Time of Exam: 09/26/2024 8:11 AM Reason For Exam: abd pain DLP: 504.[address] scans at [facility] use at least one of these dose optimization techniques: automated exposure control; mA and/or kV adjustment per patient size (includes targeted exams where dose is matched to clinical indication); or iterative reconstruction. Lower lung zones are clear. The liver is top limits normal size. No hepatic mass or nodule. Normal gallbladder. No biliary dilatation. Mild splenomegaly unchanged. A metallic density seen in the posterior stomach that may be a surgical clip. The pancreas appears normal. The abdominal aorta is normal in caliber. The IVC is unremarkable. Small bowel loops are normal in caliber. Mild bilateral renal atrophy. No renal obstruction or solid mass. No renal stones. No lymphadenopathy or free air. Mild nodularity of the adrenal glands. No significant large bowel abnormality seen. Normal appendix visualized. No mass or lymphadenopathy in the pelvis. RIGHT external iliac vein graft. Uterus is surgically absent. Urinary bladder is smooth in contour. RIGHT total hip replacement appears to be intact. Again noted is grade 2 anterolisthesis of L5 on S1 secondary to bilateral L5 pars defect. Degeneration of the disc at this level. No destructive bone changes noted. CT/CT abdomen pelvis con [id number] IMPRESSION: 1. No mass, lymphadenopathy or acute finding in the abdomen or pelvis. 2. Minor chronic findings as above. Overall, no change.
[2024-09-26 07:34] LABS: Hematocrit 36.7 % (36-47); Hemoglobin 12.30 g/dL (11.27-16.99); Mean Corpuscular HGB Conc 33.5 g/dL (30-55); Mean Corpuscular Hemoglobin 33.7 pg (27-33); Mean Corpuscular Volume 100.5 fl (85-98); Nucleated Red Blood Cells % 0 %; Platelet Count 261 10^3/cmm (157-399); Red Blood Count 3.65 10^6/uL (3.85-5.65); White Blood Count 13.36 10^3/uL (3.29-11.43)
[2024-09-26 07:42] VITALS: RESP 18; O2SAT 93
[2024-09-26] MEDS: ondansetron 2 mg/ML SDV 2 mL 4 MG IVP (07:42)
[2024-09-26] MEDS: morphine 4 mg/mL SDV 1 mL IVP (07:42)
[2024-09-26 07:45] VITALS: BP 201/96; O2SAT 95
[2024-09-26 07:45] LABS: Troponin(5th) Baseline 59 ng/L (0-10)
[2024-09-26 07:49] LABS: Alanine Aminotransferase 15 U/L (0-33); Albumin Level 4.9 g/dL (3.5-5.2); Alkaline Phosphatase 97 U/L (35-105); Anion Gap 29.1 (5-19); Aspartate Amino Transferase 22 U/L (0-32); Blood Urea Nitrogen 58 mg/dL (6-20); Calcium 10.2 mg/dL (8.5-10.5); Carbon Dioxide 17 mmol/L (22-29); Chloride 99 mmol/L (98-107); Creatinine Clr Calc Pharmacy 11.5967; Globulin 3.5 g/dL (1.3-4.6); Glucose 178 mg/dL (65-115); Lipase 77 U/L (13-60); Osmolality Calculated 313 mOsm/kg (285-295); Potassium 4.1 mmol/L (3.5-5.1); Sodium 141 mmol/L (136-145); Total Protein 8.4 g/dL (6.6-8.7)
--- NOTE | 2024-09-26 07:56 | W.ED.NAVMDI ---
HPI - Nausea/Vomiting/Diarrhea General: Chief complaint: Nausea/Vomiting/Diarrhea Stated complaint: Chest Pain, N/V/D Time Seen by Provider: 09/26/24 07:14 Source: patient Limitations: no limitations History of Present Illness: 49-year-old female with a history end-stage renal disease she is on dialysis goes to dialysis Tuesday she had missed her dialysis yesterday due to appointment in [place] states that she started having vomiting some abdominal pain yesterday and today she was sent here from dialysis for her vomiting she did not receive dialysis today. Associated nausea: Yes Associated symtoms: Reports nausea; Denies chest pain or headache(s) Related Data Home Medications ?Medication ?Instructions ?Recorded ?Confirmed acetaminophen 325 mg capsule 325 mg PO QID PRN Pain 06/19/19 09/18/24 pantoprazole 40 mg tablet,delayed 40 mg PO BID 06/19/19 09/18/24 release sodium bicarbonate 650 mg tablet 650 mg PO DAILY PRN Dialysis 09/18/19 09/18/24 apixaban 2.5 mg tablet (Eliquis) 2.5 mg PO BID 12/11/19 09/18/24 alprazolam 0.25 mg tablet (Xanax) 0.25 mg PO BID PRN Anxiety 04/01/20 09/18/24 diphenhydramine HCl 25 mg capsule 25 mg PO TID PRN Itching 04/01/20 09/18/24 (Benadryl) hydralazine 25 mg tablet 25 mg PO TID 01/21/23 09/18/24 melatonin 10 mg capsule 10 mg PO BEDTIME 01/21/23 09/18/24 ondansetron HCl 4 mg tablet 4 mg PO Q8H PRN Nausea 01/21/23 09/18/24 ropinirole 0.25 mg tablet 0.25 mg PO BEDTIME 01/21/23 09/18/24 sevelamer carbonate 800 mg tablet 1,600 mg PO TID 01/21/23 09/18/24 vit B,C-folic ac 800 mcg-zinc 12.5 1 tab PO DAILY 01/21/23 09/18/24 mg-selen-D3 2,000 unit-vit E tablet (RenaPlex-D) carvedilol 25 mg tablet 25 mg PO BID 06/04/23 09/18/24 semaglutide 1 mg/dose (4 mg/3 mL) 1 mg SUBCUT Q7D 06/04/23 09/18/24 subcutaneous pen injector (Ozempic) Held on 05/08/24. Instructions: Resume on 05/11/24. amlodipine 10 mg tablet 10 mg PO DAILY 03/22/24 09/18/24 citalopram 20 mg tablet 20 mg PO DAILY 03/22/24 09/18/24 promethazine 25 mg tablet 25 mg PO Q4H PRN Nausea And 06/07/24 09/18/24 Vomiting amoxicillin 500 mg capsule 500 mg PO BID 07/31/24 09/18/24 Previous Rx's ?Medication ?Instructions ?Recorded albuterol sulfate 90 mcg/actuation 2 inh inhalation QID shortness of 09/04/24 aerosol inhaler breath #8.5 grams ondansetron 4 mg disintegrating 4 mg PO Q6H PRN nausea and 09/26/24 tablet vomiting #14 tabs Allergies Allergy/AdvReac Type Severity Reaction Status Date / Time sulfamethoxazole (From Allergy Severe ALGY-Rash Verified 09/18/24 10:58 Sulfamethoxazole-Trimethoprim) trimethoprim (From Allergy Severe ALGY-Rash Verified 09/18/24 10:58 Sulfamethoxazole-Trimethoprim) adhesive tape Allergy Unknown blisters Verified 09/18/24 10:58 Cephalosporins Allergy Unknown unknown Verified 09/18/24 10:58 doxycycline Allergy ADR-Vomitin Verified 09/18/24 10:58 g latex Allergy blisters Verified 09/18/24 10:58 Review of Systems Const: Denies: fever(s), chills, body aches or change in appetite ENMT: Denies: throat pain or dental pain Card: Denies: chest pain Resp: Denies: dyspnea GI: Reports: nausea and vomiting; Denies: abdominal pain or diarrhea Musc: Denies: neck pain or back pain Skin/Breast: Denies: rash Neuro: Denies: headache(s) PFSH ED PFSH: Medical History Tachycardia Diabetes Deep vein thrombosis (DVT) during Chronic anticoagulation Squamous cell carcinoma of anal canal Diabetes mellitus End-stage renal disease Surgical History Status post surgery (05/19/20) Removal of peritoneal dialysis catheter Port-A-Cath in place S/P hemodialysis catheter insertion (01/09/20) Removed 11/18/2020 Peritoneal dialysis status H/O colonoscopy H/O hand surgery History of hip surgery History of hysterectomy Family History Other Cancer Diabetes Denies family history of Anesthesia complication Bleeding disorder Social History Smoking and tobacco/nicotine status: current every day tobacco/nicotine user Alcohol intake: never Substance/Drug Use: never Household members: family Marital status: Single Current occupational status: disabled Physical Exam Const: COMMON NORMALS: no acute distress, patient oriented x3 and healthy appearing HENMT: COMMON NORMALS: normocephalic and atraumatic HEAD & SCALP: normocephalic and atraumatic Neck/C-Spine: COMMON NORMALS: full ROM and supple Chest: COMMONS NORMALS: normal inspection of the chest Resp: COMMON NORMALS: normal respiratory effort, No retractions, No use of accessory muscles and clear to auscultation bilaterally AUSCULTATION: clear to auscultation bilaterally Cardio: COMMON NORMALS: regular rhythm and No murmurs present (Cardio) RATE: tachycardic RHYTHM: regular rhythm GI: COMMON NORMALS: Normal to inspection, nondistended, normoactive bowel sounds present, Soft to palpation, non-tender and no masses PALPATION: Yes Soft to palpation Extremity: COMMON NORMALS: normal to inspection and full ROM Neuro: COMMON NORMALS: patient oriented x3, moves all extremities and no focal motor deficits Psych: COMMON NORMALS: mental status grossly normal, Normal thought process present and cooperative THOUGHT PROCESS: Normal thought process present Skin: COMMON NORMALS: no rashes or lesions noted and no wounds GENERAL SKIN EXAM: no rashes or lesions noted Course Vital Signs: Vital signs: Vital Signs Temperature 97.9 F 09/26/24 07:15 Pulse Rate 101 H 09/26/24 09:02 Respiratory Rate 18 09/26/24 07:42 Blood Pressure 144/69 09/26/24 09:02 Pulse Oximetry 96 09/26/24 09:02 Oxygen Delivery Me thod Room Air 09/26/24 07:15 MDM - Nausea/Vomiting/Diarrhea Medical Decision Making Patient presents here with abdominal pain along with vomiting. She has been well-appearing here feels much improved CT scan and blood work are normal. Will discharge her back to dialysis will prescribe her Zofran. Medical Records I reviewed the patient's medical records. Lab Data I reviewed the patient's lab results. 09/26/24 06:55 09/26/24 06:55 Radiology Impressions Chest X-Ray 09/26/24 07:15 IMPRESSION: 1. Chronic interstitial changes in the upper lung zones. No acute finding. Abdomen/Pelvis CT 09/26/24 07:30 IMPRESSION: 1. No mass, lymphadenopathy or acute finding in the abdomen or pelvis. 2. Minor chronic findings as above. Overall, no change. Laboratory Results WBC 13.36 10^3/uL (3.29-11.43) H 09/26/24 06:55 RBC 3.65 10^6/uL (3.85-5.65) L 09/26/24 06:55 Hgb 12.30 g/dL (11.27-16.99) 09/26/24 06:55 Hct 36.7 % (36-47) 09/26/24 06:55 MCV 100.5 fl (85-98) H 09/26/24 06:55 MCH 33.7 pg (27-33) H 09/26/24 06:55 MCHC 33.5 g/dL (30-55) 09/26/24 06:55 RDW 17.8 % (12.1-15.1) H 09/26/24 06:55 Plt Count 261 10^3/cmm (157-399) 09/26/24 06:55 MPV 9.1 fL (7.4-10.4) 09/26/24 06:55 Neut % (Auto) 76.3 % 09/26/24 06:55 Lymph % (Auto) 18.4 % 09/26/24 06:55 [place] % (Auto) 4.3 % 09/26/24 06:55 Eos % (Auto) 0.0 % 09/26/24 06:55 Baso % (Auto) 0.2 % 09/26/24 06:55 Neut # (Auto) 10.19 10^3/uL (1.8-7.7) H 09/26/24 06:55 Lymph # (Auto) 2.5 10^3/uL (0.8-4.8) 09/26/24 06:55 [place] # (Auto) 0.6 10^3/uL (0.2-0.9) 09/26/24 06:55 Eos # (Auto) 0.0 10^3/uL (0.0-0.8) 09/26/24 06:55 Baso # (Auto) 0.0 10^3/uL (0.0-0.1) 09/26/24 06:55 Nucleated RBC % (auto) 0 % 09/26/24 06:55 Nucleated RBCs # 0.0 /100WBC 09/26/24 06:55 PT 14.50 SECONDS (12.1-14.9) 09/26/24 06:55 INR 1.05 (0.8-1.2) 09/26/24 06:55 Sodium 141 mmol/L (136-145) 09/26/24 06:55 Potassium 4.1 mmol/L (3.5-5.1) 09/26/24 06:55 Chloride 99 mmol/L (98-107) 09/26/24 06:55 Carbon Dioxide 17 mmol/L (22-29) L 09/26/24 06:55 Anion Gap 29.1 (5-19) H 09/26/24 06:55 BUN 58 mg/dL (6-20) H 09/26/24 06:55 Creatinine 5.9 mg/dL (0.5-0.9) H* 09/26/24 06:55 GFR Calculation 7.6 mL/min (90-130) L 09/26/24 06:55 Glucose 178 mg/dL (65-115) H 09/26/24 06:55 Calculated Osmolality 313 mOsm/kg (285-295) H 09/26/24 06:55 Calcium 10.2 mg/dL (8.5-10.5) 09/26/24 06:55 Total Bilirubin 0.9 mg/dL (0.15-1.2) 09/26/24 06:55 AST 22 U/L (0-32) 09/26/24 06:55 ALT 15 U/L (0-33) 09/26/24 06:55 Alkaline Phosphatase 97 U/L (35-105) 09/26/24 06:55 Troponin T Baseline 59 ng/L (0-10) H 09/26/24 06:55 Total Protein 8.4 g/dL (6.6-8.7) 09/26/24 06:55 Albumin 4.9 g/dL (3.5-5.2) 09/26/24 06:55 Globulin 3.5 g/dL (1.3-4.6) 09/26/24 06:55 Lipase 77 U/L (13-60) H 09/26/24 06:55 All radiology interpretation(s) finalized by discharge EKG Data EKG 1: I personally reviewed and interpreted this EKG as follows: EKG interpretation date: 09/26/24 EKG interpretation time: 07:20 Interpretation: sinus tach hr [address] or t wave abnormalities qrs 104 qtc 436 Discharge Plan Discharge Patient Disposition: Home Clinical Impression: Vomiting, Abdominal pain Condition: Stable Prescriptions: New ondansetron 4 mg tablet,disintegrating 4 mg PO Q6H PRN (Reason: nausea and vomiting) Qty: 14 0RF No Action alprazolam [Xanax] 0.25 mg tablet 0.25 mg PO BID PRN (Reason: Anxiety) diphenhydramine HCl [Benadryl] 25 mg capsule 25 mg PO TID PRN (Reason: Itching) acetaminophen 325 mg capsule 325 mg PO QID PRN (Reason: Pain) pantoprazole 40 mg tablet,delayed release (DR/EC) 40 mg PO BID sodium bicarbonate 650 mg tablet 650 mg PO DAILY PRN (Reason: Dialysis) albuterol sulfate 90 mcg/actuation HFA aerosol inhaler 2 inh inhalation QID Qty: 8.5 4RF Eliquis 2.5 mg Tablet 2.5 mg PO BID ondansetron HCl 4 mg Tablet 4 mg PO Q8H PRN (Reason: Nausea) hydralazine 25 mg tablet 25 mg PO TID ropinirole 0.25 mg Tablet 0.25 mg PO BEDTIME sevelamer carbonate 800 mg tablet 1,600 mg PO TID melatonin 10 mg Capsule 10 mg PO BEDTIME RenaPlex-D 800 mcg-12.5 mg -2,000 unit Tablet 1 tab PO DAILY promethazine 25 mg tablet 25 mg PO Q4H PRN (Reason: Nausea And Vomiting) amoxicillin 500 mg capsule 500 mg PO BID carvedilol 25 mg tablet 25 mg PO BID Ozempic 1 mg/dose (4 mg/3 mL) pen injector 1 mg SUBCUT Q7D Rx Instructions: on Tuesday amlodipine 10 mg tablet 10 mg PO DAILY citalopram 20 mg tablet 20 mg PO DAILY Discharge Orders: Discharge ED (Routine); Ordered 09/26/24 Ordered By: Nohemi Rivero Referrals: Herber Hussein MD [Primary Care Provider, Family Practice] - 4-7 days Discharge Diet: Advance as tolerated Discharge Activity: Resume usual activity Patient Instructions: Acute Nausea and Vomiting (ED), Abdominal Pain (ED) Print Language: Wallisian Coding Level of Care Code ED It Security Manager for Chuy Fitch
[2024-09-26 08:05] VITALS: BP 182/93; PULSE 113; O2SAT 96
[2024-09-26] MEDS: labetalol 5 mg/mL SDV 20mL 10 MG IVP (08:06)
[2024-09-26 08:12] LABS: INR 1.05 (0.8-1.2); Prothrombin Time 14.50 SECONDS (12.1-14.9)
[2024-09-26 09:02] VITALS: BP 144/69; PULSE 101; O2SAT 96
[2024-09-26 09:22] LABS: Troponin 5 2HR 56.47 ng/L (0-10)
[2024-09-26 09:32] LABS: Troponin 5 2HR Delta -2.53 ABS# (0-10)
== END 2024-09-26 09:03 | disposition home or self-care (01) ==
PROVIDERS: Emergency Provider Emergency Medicine; PCP Family Medicine
DX: R11.10 Vomiting, unspecified (principal); R10.9 Unspecified abdominal pain; E11.22 Type 2 diabetes mellitus with diabetic chronic kidney disease; N18.6 End stage renal disease; Z99.2 Dependence on renal dialysis; Z72.0 Tobacco use; Z79.01 Long term (current) use of anticoagulants
CPT/HCPCS: 36415; 71045; 74176; 80053; 83690; 84484; 85025; 85610; 93005; 96374; 96375; 99285; J2270; J2405; J3490

== ENCOUNTER 2024-10-15 13:15 | Observation (INO) | payer MEDICARE, MEDICAID, SELFPAY ==
--- OUTSIDE RECORDS SUMMARY | 2024-10-09 19:00 | XMS_ITS ---
Author Name Bee Chavarria Address [address] [place] [address] Phone [phone] Organization [facility], NA DOCUMENT DISCLAIMER Multiple document versions may exist, please be sure you review the latest version. The information in the [facility] Progress Note Document represents a providers documented clinical note containing certain health and medical information. It may not contain the complete medical history for the patient and should be independently verified. The represented time in the document is Eastern Time PROVIDER ROUNDING NOTE COMPREHENSIVE Patient:?Bharati?Raj,?1975,?49y,?F Dialysis?Location:?[place] Attending?Pesticide Use Medical Coordinator:?Devan Service?Date:?10/10/2024 Service?Provider:?Bee?Deon,? I?met?face?to?face?with?the?patient?today. 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 For?HIDA?scan?ordered?per?her?PCP. Medications?and?labs?reviewed. LAST?HOSPITALIZATION Admission?Date?10/01/24 TRANSPLANT Comments:?She?has?received?paperwork?from?[facility]?for?transplan t.?She?has?now?decided?again?against?tranplant.?Ongoing discussions. DIALYSIS?PRESCRIPTION ??IHD?3x?Week?Start?date:?10/08/24 ??Dialyzer:?180NRe?Optiflux ??BFR:?450 ??DFR:?Autoflow?2 ??Potassium:?3.0 ??Sodium:?137 ??EDW:?67.5 ??Duration:?2:45 ??Calcium:?2.5 ??Bicarb:?40 ??Rx?updated?on:?10/08/2024 TREATMENT?ASSESSMENT Comments:?Stable BP?Stand?Pre ??10/08/2024:?125/85 ??10/05/2024:?99/57 BP?Sit?Pre ??10/08/2024:?124/64 ??10/05/2024:?133/70 ??09/26/2024:?149/76 BP?Stand?Post ??10/08/2024:?123/54 ??10/05/2024:?115/57 BP?Sit?Post ??10/08/2024:?155/64 ??10/05/2024:?141/70 ??09/26/2024:?134/69 Tx?Duration ??10/08/2024:?2:48 ??10/05/2024:?2:45 ??09/26/2024:?2:49 Missed?Treatments 1?-?last?30?days 1?-?last?60?days 7/?-?recent FLUID?ASSESSMENT Comments:?Stable EDW?(kg) ??10/08/2024:?72.6 ??10/05/2024:?72.6 ??09/26/2024:?72.6 Weight?Pre?(kg) ??10/08/2024:?67.1 ??10/05/2024:?67.5 ??09/26/2024:?65.8 Weight?Post?(kg) ??10/08/2024:?67.4 ??10/05/2024:?68.0 ??09/26/2024:?67.3 PWV?(kg) ??10/08/2024:?-5.2 ??10/05/2024:?-4.6 ??09/26/2024:?-5.3 UF?Rate?(mL/kg/hr) ??10/08/2024:?-1.6 ??10/05/2024:?-2.7 ??09/26/2024:?-7.9 ADEQUACY?ASSESSMENT Comments:?Stable?trend. spKt/V,?URR ??09/26/2024:?1.64,?80.0 ??08/24/2024:?1.67,?79.0 ??08/06/2024:?1.43,?73.0 ACCESS?ASSESSMENT ??Access?Type:?AVFistula ??Access?SubType:?Transposed ??Access?Status:?Active?(In?Use)?-?10/27/2020 ??Access?Location:?Right?Thigh ??Created:?08/19/2020 Flow ??08/29/2024:?>1999 ??08/10/2024:?>1999 ??08/08/2024:?>1999 Vascular?access?reviewed.?Current?access?is?permanent?and?functioning?well. ANEMIA?ASSESSMENT Comments:?On?IV?iron?and?DORINDA?protocol. HGB,?TSAT ??10/05/2024:?11.1,?- ??09/26/2024:?11.5,?- ??09/19/2024:?9.5,?23.0 ?? Ferritin ??08/24/2024:?1622.0 ??08/15/2024:?1808.0 ??05/23/2024:?1045.0 Epoetin?Mata?(Epogen),?IVP?(units) ??10/08/2024:?5800 ??10/05/2024:?5800 ??09/26/2024:?7600 Iron?Sucrose?(Venofer)?(mg) ??10/08/2024:?50 ??09/17/2024:?50 ??09/10/2024:?50 BMM?ASSESSMENT Comments:?PTH?improving Phos?and?Ca?at?goal. PTH,?Intact ??08/24/2024:?446.0 ??05/23/2024:?534.0 ?? Calcium,?Phosphorus ??09/19/2024:?8.9,?5.4 ??08/24/2024:?8.3,?4.6 ??07/25/2024:?9.7,?5.9 Vitamin?D?(Calcitriol)?Oral?(mcg) ??10/08/2024:?1.0 ??10/05/2024:?1.0 ??09/26/2024:?1.0 NUTRITION?ASSESSMENT Comments:?Stable?at?goal. Potassium,?Albumin ??09/19/2024:?3.8,?4.1 ??08/24/2024:?3.7,?3.7 ??07/25/2024:?3.9,?4.5 ?? eNPCR ??09/26/2024:?0.91 ??08/24/2024:?0.7 ??08/06/2024:?0.46 PHYSICAL?EXAM Exam?Performed.?Vital?Signs?Reviewed.?CV?-?Blood?pressure&#1 60;noted.?EXT?-?No?edema.?EXT?-?No?ulcers.?AVF/AVG Positive?thrill/bruit. DIAGNOSIS Chief?Complaint:?N18.6?End?stage?renal?disease Patient?is?stable. Patient?data?updated?10/10/2024?at?10:43?AM Signed?By:?Deon,?Bee???on?10/10/2024?10:45:52?AM END OF DOCUMENT
[2024-10-15] VITALS (9 sets, daily range): BP systolic 126–172; BP diastolic 63–79; PULSE 89–106; RESP 16–19; TEMP 36.6; O2SAT 92–99; BMI 23.6
--- OUTSIDE RECORDS SUMMARY | 2024-10-15 13:18 | XMS_ITS | Encounter Summary ---
Author Organization [facility] Address [address] [place] [address] Phone Care Team Providers Care Microsoft Infrastructure Consultant Name Role Phone Herber Hussein MD Primary Care Provider [phone] Encounter Details Date Type Department Care Team (Late st Contact Info) Description 10/10/2024 Treatment [facility] [address] [place] [address] Bee Chavarria MD [address] [place] [address] End stage renal disease; Dependence on renal dialysis Social History Tobacco Use Types Packs/Day Years Used Date Smoking Tobacco: Every Day Cigarettes Smokeless Tobacco: Never Chew Alcohol Use Standard Drinks/Week Comments Never 0 (1 standard drink = 0.6 oz pur e alcohol) AUDIT-C Answer Date Recorded Frequency of Alcohol Consumption Never 05/25/2018 Average Number of Drinks Not on file 019 Frequency of Binge Drinking Not on file 09/2018 Comments Unknown Sex and Gender Information Value Date Recorded Sex Assigned at Not on file Legal Sex Female 12:46 PM EST Gender Identity Not on file Sexual Orientation Not on file documented as of this encounter Miscellaneous Notes * Dialysis Note - Bee Chavarria MD - 10/10/2024 12:00 AM CDT Patient: Bharati Anthony, 1975, 49y, F Dialysis [facility]: [facility] Attending Oxygen Equipment Technician: Bee Chavarria Service Date: 10/10/2024 Service Provider: Bee Chavarria MD I met face to face with the patient today. OVERVIEW The patient presented with ESRD on dialysis Primary cause of renal failure: Type 2 diabetes mellitus with diabetic chronic kidney disease Comments: VSS, seen on HD machine Reporting intermittent coughing up blood. Advised to report to pcp for assessment/follow up. For HIDA scan ordered per her PCP. Medications and labs reviewed. LAST HOSPITALIZATION Admission Date 10/01/24 TRANSPLANT Comments: She has received paperwork from [facility] for transplant. She has now decided again against tranplant. Ongoing discussions. DIALYSIS PRESCRIPTION IHD 3x Week Start date: 10/08/24 Dialyzer: 180NRe Optiflux BFR: 450 DFR: Autoflow 2 Potassium: 3.0 Sodium: 137 EDW: 67.5 Duration: 2:45 Calcium: 2.5 Bicarb: 40 Rx updated on: 10/08/2024 TREATMENT ASSESSMENT Comments: Stable BP Stand Pre 10/08/2024: 125/85 10/05/2024: 99/57 BP Sit Pre 10/08/2024: 124/64 10/05/2024: 133/70 09/26/2024: 149/76 BP Stand Post 10/08/2024: 123/54 10/05/2024: 115/57 BP Sit Post 10/08/2024: 155/64 10/05/2024: 141/70 09/26/2024: 134/69 Tx Duration 10/08/2024: 2:48 10/05/2024: 2:45 09/26/2024: 2:49 Missed Treatments 1 - last 30 days 1 - last 60 days 09/24 - recent FLUID ASSESSMENT Comments: Stable EDW (kg) 10/08/2024: 72.6 10/05/2024: 72.6 09/26/2024: 72.6 Weight Pre (kg) 10/08/2024: 67.1 10/05/2024: 67.5 09/26/2024: 65.8 Weight Post (kg) 10/08/2024: 67.4 10/05/2024: 68.0 09/26/2024: 67.3 PWV (kg) 10/08/2024: -5.2 10/05/2024: -4.6 09/26/2024: -5.3 UF Rate (mL/kg/hr) 10/08/2024: -1.6 10/05/2024: -2.7 09/26/2024: -7.9 ADEQUACY ASSESSMENT Comments: Stable trend. spKt/V, URR 09/26/2024: 1.64, 80.0 08/24/2024: 1.67, 79.0 08/06/2024: 1.43, 73.0 ACCESS ASSESSMENT Access Type: AVFistula Access SubType: Transposed Access Status: Active (In Use) - 10/27/2020 Access Location: Right Thigh Created: 08/19/2020 Flow 08/29/2024: >199908/10/2024: >199908/08/2024: >1999 Vascular access reviewed. Current access is permanent and functioning well. ANEMIA ASSESSMENT Comments: On IV iron and DORINDA protocol. HGB, TSAT 10/05/2024: 11.1, - 09/26/2024: 11.5, - 09/19/2024: 9.5, 23.0 Ferritin 08/24/2024: 1622.0 08/15/2024: 1808.0 05/23/2024: 1045.0 Epoetin Mata (Epogen), IVP (units) 10/08/2024: 5800 10/05/2024: 5800 09/26/2024: 7600 Iron Sucrose (Venofer) (mg) 10/08/2024: 50 09/17/2024: 50 09/10/2024: 50 BMM ASSESSMENT Comments: PTH improving Phos and Ca at goal. PTH, Intact 08/24/2024: 446.0 05/23/2024: 534.0 Calcium, Phosphorus 09/19/2024: 8.9, 5.4 08/24/2024: 8.3, 4.6 07/25/2024: 9.7, 5.9 Vitamin D (Calcitriol) Oral (mcg) 10/08/2024: 1.0 10/05/2024: 1.0 09/26/2024: 1.0 NUTRITION ASSESSMENT Comments: Stable at goal. Potassium, Albumin 09/19/2024: 3.8, 4.1 08/24/2024: 3.7, 3.7 07/25/2024: 3.9, 4.5 eNPCR 09/26/2024: 0.91 08/24/2024: 0.7 08/06/2024: 0.46 PHYSICAL EXAM Exam Performed. Vital Signs Reviewed. CV - Blood pressure noted. EXT - No edema. EXT - No ulcers. AVF/AVG Positive thrill/bruit. DIAGNOSIS Chief Complaint: N18.6 End stage renal disease Patient is stable. Patient data updated 10/10/2024 at 10:43 AM Signed By: Bee Chavarria MD on 10/10/2024 10:45:52 AM documented in this encounter Plan of Treatment Not on file documented as of this encounter Visit Diagnoses Diagnosis End stage renal disease Dependence on renal dialysis documented in this encounter Care Teams Microsoft Infrastructure Consultant Relationship Specialty Start Date End Date Herber Hussein MD [address] [place] [address] PCP - General Family Medicine 07/14/18 documented as of this encounter
--- OUTSIDE RECORDS SUMMARY | 2024-10-15 13:18 | XMS_ITS | Encounter Summary ---
Author Organization [facility] Address [address] [place] [address] Phone Care Team Providers Care Customer Account Manager Name Role Phone Herber Hussein MD Primary Care Provider [phone] Reason for Visit * Reason Comments Med Refill Encounter Details Date Type Department Care Team (Late st Contact Info) Description 02/08/2024 Refill [facility] [address] [place] [id number] Bee Chavarria MD [address] [place] [address] Social History Tobacco Use Types Packs/Day Years [...] on file documented as of this encounter Plan of Treatment Not on file documented as of this encounter Procedures Procedure Name Priority Date/Time Associated Diagnosis Comments HEMATOLOGY Routine 02/08/2024 documented in this encounter Results * (ABNORMAL) HEMATOLOGY (02/08/2024) Hemoglobin 8.9(L) 12.0 - 16.0 g/dL [facility] Hemoglobin x 3 26.7(L) 36.0 - 48.0 % [facility] 02/08/2024 02/09/2024 12: 25 PM SPECIAL FORCES ENGINEER SERGEANT Narrative [facility] - 02/09/2024 Unless otherwise specified, test(s) performed at: [facility], [address] [place], [place] [id number] FOREST MANAGER: Michael Knox M.D. For any questions, please call customer service at FREQUENCY:OTHER Resulting Agency Comment Specimen source: Blood us Bee Chavarria MD LAB BLOOD ORDERABLES Final Re sult [facility] See order comments or contact performing lab Unknown, [place] documented in this encounter Visit Diagnoses Not on filedocumented in this encounter Care Teams Customer Account Manager Relationship Specialty Start Date End Date Herber Hussein MD [address] [place] [address] PCP - General Family Medicine 07/14/18 documented as of this encounter
--- OUTSIDE RECORDS SUMMARY | 2024-10-15 13:18 | XMS_ITS | Encounter Summary ---
Author Organization [facility] Address [address] [place] [address] Phone Care Team Providers Care Rug Measurer Name Role Phone Herber Hussein MD Primary Care Provider [phone] Encounter Details Date Type Department Care Team (Late st Contact Info) Description 10/10/2024 Orders Only [facility] [address] [place] [address] Bee Chavarria MD [address] [place] [address] Social History Tobacco Use Types [...] Priority Date/Time Associated Diagnosis Comments HEMATOLOGY Routine 10/10/2024 documented in this encounter Results * (ABNORMAL) HEMATOLOGY (10/10/2024) Hemoglobin 10.8(L) 12.0 - 16.0 g/dL [facility] Hemoglobin x 3 32.4(L) 36.0 - 48.0 % [facility] 10/10/2024 10/11/2024 9:0 7 AM CDT Narrative [facility] - 10/11/2024 Unless otherwise specified, test(s) performed at: [facility], [address] [place] [address] METAL MINER: Michael Knox M.D. For any questions, please call customer service at FREQUENCY:OTHER Resulting Agency Comment Specimen source: Blood us Bee Chavarria MD LAB BLOOD ORDERABLES Final Re sult [facility] See order comments or contact performing lab Unknown, [place] documented in this encounter Visit Diagnoses Not on filedocumented in this encounter Care Teams Rug Measurer Relationship Specialty Start Date End Date Herber Hussein MD [address] [place] [address] PCP - General Family Medicine 07/14/18 documented as of this encounter
--- OUTSIDE RECORDS SUMMARY | 2024-10-15 13:18 | XMS_ITS | Encounter Summary ---
Author Organization [facility] Address [address] [place] [address] Phone Care Team Providers Care Branch Employment Coordinator Name Role Phone Herber Hussein MD Primary Care Provider [phone] Reason for Visit * Reason Comments Med Refill Encounter Details Date Type Department Care Team (Late st Contact Info) Description 02/21/2024 Refill [facility] [address] [place] [address] Bee Chavarria MD [address] [place] [address] Social History Tobacco Use Types [...] documented as of this encounter Visit Diagnoses Not on filedocumented in this encounter Care Teams Branch Employment Coordinator Relationship Specialty Start Date End Date Herber Hussein MD [address] [place] [address] PCP - General Family Medicine 07/14/18 documented as of this encounter
--- OUTSIDE RECORDS SUMMARY | 2024-10-15 13:19 | XMS_ITS | Continuity of Care Document ---
Author Organization [facility], L[facility]LNa, [facility] ([facility]) Address [address] [place] [address] Care Team Providers Care Lifestyle Consultant Name Role Phone ALICIA HUSSEIN Primary Care Provider Unavailomar e Assessment No assessment recorded. Plan of Treatment Reminders Order Date Submit Date Provider Last Modified By Organization Details Last Modified Time Details Appointments RECHECK 15 2024 01:00P Courtney Hussein MD Not available Not available Not available Lab None recorded. Referral None recorded. Procedures None recorded. Surgeries None recorded. Imaging NM, hepatobil iary scan 2024 025 asurface [facility] (Scheduling Orders), [address] [place], [address], 10/09/2024 08:54:11 Medication Orders None recorded. Patient TargetsNo targets recorded. Patient InstructionsNo instructions recorded. Reason for Referral None Reported. Results Created Date Observation Date Name Description Value Unit Range Abnormal Flag Note LastModifiedBy Organization Detail LastModifiedTime 09/12/19 25 09/06/2024 colon oscop y proce dure (PROC ) No observ ation record ed. Not Available 09/12 10:11:12 Result Notes None recorded. Problems Name Problem SNOMED Code Status Onset Date Resolution Date Notes Provider Name and Address Organization Details Recorded Time Dependen ce on renal dialysis 197511857 Active LEEANNE fajardo [facility] LMireyaLMireyaCMireya 14:10:11 Chronic ulcer of right foot Active LEEANNE fajardo [facility] 5 14:10:11 Fracture of inferior pubic ramus 241056599 Completed 06/08/2024 BHUPINDER fajardo [facility], LMireyaL.CMireya 5 15:22:54 Tachycar sanjay 3329300 Active LEEANNE MARKELL fajardo [facility], KylahL.CMireya 5 14:10:11 Hypoxia 251575264 Completed 06/08/2024 BHUPINDER fajardo [facility], KylahL.CMireya 5 15:22:54 Congesti ve heart failure 94373081 Active [facility], KylahL.CMireya 5 17:03:13 Antepart um deep vein thrombos is 53152673 Active [facility]KE[facility], L.L.CMireya 5 14:10:11 At increase d risk of impaired respirat ory system function 516247802 Completed 06/08/2024 [place] [facility], L.L.CMireya 5 15:22:54 Long-ter m current use of anticoag ulant 840091052 Completed 06/08/2024 BHUPINDER fajardo [facility] 5 15:22:54 Dystroph ia unguium 98455445 Completed 06/08/2024 BHUPINDER fajardo [facility] 5 15:22:54 Harmful pattern of use of psychoac tive substanc e 93370242 Completed 06/08/2024 BHUPINDER fajardo [facility], L.L.CMireya 5 15:22:54 Chronic ulcer of left foot Completed 06/08/2024 BHUPINDER fajardo [facility], L.L.CMireya 5 15:22:54 Neuropat hic ulcer of right foot Completed 06/08/2024 [place], [facility] 5 15:22:54 Injury of left wrist 82804702481 182779 Completed 06/08/2024 [facility] 5 15:22:54 Sprain of left wrist 07140144999 645620 Completed 06/08/2024 [place], [facility] 5 15:22:54 Deep venous thrombos is 296168256 Completed 06/08/2024 [facility] 5 15:22:54 Foot callus 171207242 Completed 06/08/2024 [facility] 5 15:22:54 Dyspnea 898093879 Completed 06/08/2024 [facility] 5 15:22:54 Subungua l hematoma of foot 374856000 Completed 06/08/2024 [facility] 5 15:22:54 Ulcer of big toe 945585620 Completed 06/08/2024 BHUPINDER fajardo [facility] 5 15:22:54 Bronchit is 04790422 Completed 06/08/2024 BHUPINDER fajardo, [facility] 5 15:22:54 Dehydrat ion 81011174 Completed 06/08/2024 BHUPINDER fajardo, [facility] 5 15:22:54 Malignan t tumor of anal canal 596052225 Completed 06/08/2024 BHUPINDER fajardo, [facility] 5 15:22:54 Hypoxemi a 484110920 Completed 06/08/2024 BHUPINDER fajardo, [facility] 5 15:22:54 Vomiting 614327399 Completed 06/08/2024 BHUPINDER fajardo, [facility] 5 15:22:54 Dependen ce on peritone al dialysis 049818594 Completed 06/08/2024 BHUPINDER fajardo, [facility] 5 15:22:54 End-stag e renal disease 28427199 Completed 06/08/2024 BHUPINDER fajardo, [facility] 5 15:22:54 Acute hypokale zachery 39213689 Completed 06/08/2024 BHUPINDER fajardo, [facility] 5 15:22:54 Preopera tive state 23527487 Completed 06/08/2024 BHUPINDER fajardo, [facility] 5 15:22:54 COVID-19 089039304 Completed 06/08/2024 BHUPINDER fajardo, [facility] 5 15:22:54 Suspecte d COVID-19 227779733 Completed 06/08/2024 BHUPINDER fajardo, [facility] 5 15:22:54 History of procedur e 729392085 Completed 201906/08/2024 BHUPINDER fajardo, [facility] 5 15:22:54 Migraine 82112815 Completed 202205/21/2024 LEEANNE PEACOCK null, [facility] 5 14:14:57 Complica tion due to diabetes mellitus type 2 Active 2022 TYPE II DIABETES MELLITUS WITH COMPLICA TION, UNCONTRO LLED; Impressi on: better control by report. LEEANNE fajardo [facility] 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 LEEANNE fajardo [facility] 14:10:11 Essentia l hyperten arnold 54063574 Active 2022 LEEANNE fajardo [facility] 14:10:11 End stage renal failure on dialysis 808702733 Active 2022 LEEANNE fajardo [facility] 14:10:11 History of deep vein thrombos is 163943782 Completed 202205/21/2024 LEEANNE fajardo [facility] 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 14:11:19 History of malignan t neoplasm of colon 445578058 Active 2022 LEEANNE fajardo [facility] 14:10:11 Diabetes mellitus 98172191 Active 2022 Alicia Hussein MD [address] [place] [address], [phone], [facility] 5 12:50:30 Osteomye litis of right foot 27319272277 27379 Completed 202205/21/2024 LEEANNE fajardo [facility] 5 14:11:19 Generali zed anxiety disorder 66146647 Active 2022 LEEANNE PEACOCK [facility] 5 14:10:11 Restless legs 09267685 Active 2022 LEEANNE DODDRIS [facility] 5 14:10:11 Coronary atherosc lerosis 151567520 Active 2023 LEEANNE DODDRIS [facility] 5 14:15:17 Bilatera l cataract s 37203256 Completed 202305/21/2024 LEEANNE DODDRIS [facility] 5 14:12:49 Coronary arterios clerosis 96410891 Active 2023 LEEANNE DODDRIS [facility] 5 14:10:11 Hematoch ezia 656276061 Completed 202305/21/2024 LEEANNE DODDRIS [facility] 5 14:16:31 Major depressi ve disorder 481014377 Active 2023 LEEANNE DODDRIS [facility] 5 14:10:11 Iron deficien cy anemia 72827973 Active 2023 LEEANNE DODDRIS [facility] 5 14:10:11 Tenderne ss of right upper quadrant of abdomen 505595154 Completed 202305/21/2024 LEEANNE DODDRIS [facility] 5 14:16:31 Gastroes ophageal reflux disease 403623638 Active 2023 LEEANNE PEACOCK [facility] 5 14:10:11 Mass of colon 001995790 Completed 202406/08/2024 [place] [facility] 5 15:22:54 Right upper quadrant pain 301091402 Active 2024 Alicia Hussein MD [address] [place] [address], [address], [facility], L.L.CMireya 5 15:48:14 Problem Notes None recorded. Medical Equipment None Reported. Allergies Allergen ID Allergen Name Allergen Category Reaction Reaction Severity Criticality Documentation Date Start Date Code Code System Note Provider Name and Address Organization Details Recorded Time 52355 pseudoeph edrine tannate medicatio n itching rash mild mild low 10/16/2022 46661 1 RxNorm Samantha Perez [facility], LMireyaL.C. 4 11:38:45 33953 Ceftin medicatio n itching rash mild mild low 10/16/2022 10586 6 RxNorm Samantha Rodriguezhayden [facility] 4 11:38:26 20288 doxycycli ne hyclate medicatio n vomiting moderate low 10/16/2022 72129 RxNorm Samantha Chris [facility], LMireyaL.CMireya 4 11:38:31 78101 acetamino phen / dextromet horphan / guaifenes in / pseudoeph edrine medicatio n Not available Not available Not available 10/16/2022 29471 8 RxNorm Samantha Perez [facility] 4 11:38:46 05850 doxycycli ne Not available Not available Not available Not available 03/06/20242023 3640 RxNorm LEEANNE PEACOCK [facility], L.L.CMireya 4 12:28:55 86708 latex environme nt,medica tion Not available Not available Not available 03/06/20242023 40733 91 RxNorm DEMETRA Tsai [facility], Kory 12:28:55 Medications Name Sig Start Date Stop Date Status Note LastModified by Organization Details LastModified Time amoxicill in 500 mg capsule Take 1 capsule twice a day by oral route for 5 days. 10/08 completed Not Available Not Available Not Available carvedilo l 25 mg tablet TAKE 1 [...] oral route as needed for 30 days. 10/08 completed Not Available Not Available Not Available hydrocodo ne 5 mg-acetam inophen 325 mg tablet Take 1 tablet every 6 hours by oral route. 10/08 completed Not Available Not Available Not Available sucralfat e 100 mg/mL oral suspensio n TAKE 10 ML BY MOUTH BEFORE MEALS AND AT BEDTIME FOR 4 WEEKS 12/05 completed Not Available Not Available Not Available ondansetr on HCl 4 mg tablet Take 1 tablet twice a day by oral route as needed for 30 days. 10/08 completed Not Available Not Available Not Available prednison e 20 mg tablet 08/08 [...] ondansetr on 8 mg disintegr ating tablet 10/08 completed Not Available Not Available Not Available lidocaine [...] TABLET BY MOUTH TWICE A DAY NEEDED active Not Available Not Available No t Available citalopra m 20 mg tablet TAKE 1 TABLET BY MOUTH EVERY DAY FOR 30 DAYS active Not Available Not Available No t Available prednisol one acetate 1 % eye drops,araseli [...] Available Not Available No t Available OneTouch Ultra Test strips CHECK SUGAR DAILY active [...] Not Available Not Available No t Available pantopraz ole 40 mg tablet,de layed release TAKE 1 TABLET BY MOUTH TWICE A DAY active Not Available Not Available No t Available olopatadi ne 0.1 % eye drops INSTILL [...] sulfate HFA 90 mcg/actua tion aerosol inhaler INHALE 2 PUFFS BY MOUTH FOUR TIMES A DAY FOR SHORTNES S OF BREATH active Not Available Not Available No t Available ondansetr on 4 mg disintegr ating tablet DISSOLVE 1 TABLET EVERY 6 HOURS NEEDED FOR NAUSEA AND VOMITING active Not Available Not Available No t Available Reglan 5 mg tablet Take 1 tablet 4 times a day by oral route as needed. active Not Available Not Available No t Available oxycodone 5 mg tablet TAKE 1 [...] mg capsule three times daily, as needed 10/08 completed Not Available Not Available Not Available sodium chloride 0.9 % intraveno us piggyback 11/16 completed Not Available Not Available Not Available Coreg BID 10/19 completed 0; Recorded 06/08/19 23 2:50PM by Leeanne Peacock, Office Visit; Not Available Not Available Not [...] 0; Recorded 06/08/19 23 2:50PM by Leeanne Peacock, Office Visit; Not Available Not Available Not Available Lomotil four times daily, as needed 12/10 completed Recorded 06/08/19 3:21PM by Alicia Hussein MD, Office Visit; Refill Quantity : 20; Tablet; Not Available Not Available Not Available One Touch Ultra Test Strips daily 12/10 completed Recorded 05/23/19 1:44PM by Leeanne Peacock, Office Visit; Refill Quantity : 100; Each; Not Available Not Available Not Available OneTouch Ultra Control as directes d 12/10 completed Recorded 05/23/19 1:44PM by Leeanne Peacock, Office Visit; Refill Quantity : 10; Millilit [...] Not Available Not Available No t Available GaviLyte- G 236 gram-22.7 4 gram-6.74 gram-5.86 gram oral solution USE DIRECTED THE DAY PRIOR TO YOU PROCEDUR E active Not Available Not Available No t [...] UNDER THE SKIN ONE TIME PER WEEK active Not Available Not Available No t Available Korsuva 50 mcg/mL intraveno us solution Inject 40 microgra ms 3 times a week by intraven . route. 10/08 completed Not Available Not Available Not Available Vitals Date Recorded Body height Body mass index (BMI) Body weight Heart rate Systolic And Diastolic Provider Name and Address Organization Details Last Updated DateTime 10/08/2024 175.26 cm 22 kg/m2 52563.26 g 72 /min 124/59 mm[Hg] [facility]UPINDER [place] [facility] 15:16:48 Social History Question Answer Notes LastModified by [employer] Details LastModified Time Tobacco Smoking Status Current Every Day Smoker LEEANNE fajardo [facility] 10/19/2022 11:35:39 What Was The Date Of Your Most Recent Tobacco Screening? 10/08/2024 [email or web address] Information not available 10/08/2024 Sex: Unknown Functional Status Question Answer Note LastModified by [employer] Details LastModified Time Do you use any illicit or recreational drugs? No [email or web address] Information not available 10/19/2022 What is your level of alcohol consumption? None [email or web address] Information not available 10/19/2022 Mental Status None recorded. Family History Relationship Description Onset Age of this Age Resolved Age Notes LastModified by Organization Details LastModified Time Father Heart disease [email or web address] Not available 10/08 15:22:26 Father Essential hypertension [email or web address] Not available 15:22:52 Medical History No medical history recorded. Gynecological HistoryNo gynecological history recorded. Obstetrics History GPAL:G 0 P 0 0 0 0 Immunizations Vaccine Type Date Status Note Provider Nam e and Address Organization Details Recorded Time Td(adult) unspecified formulation 1 completed Not Available [facility] 04/19/2023 15:11:02 Tdap 7 completed NILAY KRUSE PA-C [address] [place], [address], [facility] 09/13/2022 15:07:01 Td (adult), 2 Lf tetanus toxoid, preservative free, adsorbed 2 completed NILAY KRUSE PA-C [address] [place], [address], [facility] 09/13/2022 15:07:01 Past Encounters Encounter ID Performer Location Encounter Start Date Encounter Closed Date Diagnosis/Indication Diagnosis SNOMED-CT Code Diagnosis ICD10 Code Diagnosis Note [id number] Alicia Hussein MD [facility] ([facility]) [address] [place] [address] 10/08/2024 14:59:42 10/08/2024 17:11:53 Right upper quadrant pain 078050225 R10.11 Diabetes mellitus 339061 09 E11.21 End stage renal failure on dialysis 073792182 N18.6 Essential hypertension 74641933 I10 Health Concerns Section Related Observation LastModified by Organization Detai ls LastModified Time None Recorded Concern Status LastModified by Organization Details LastModified Time None Recorded Payers Encounter Date Sequence Insurance Name Policy Number Policy Ramon Covered Member ID Ramon Member ID Guarantor Name 10/08/2024 1 [place] Bharati Anthony [id number] Bharati Anthony 10/08/2024 2 [place] Bharati Anthony [id number] Bharati Anthony OBGyn Episode No OBEpisode recorded.
--- OUTSIDE RECORDS SUMMARY | 2024-10-15 13:19 | XMS_ITS | Encounter Summary ---
Author Organization [facility] Address [address] [place] [address] Phone Care Team Providers Care Tank Tender Name Role Phone Herber Hussein MD Primary Care Provider [phone] Reason for Visit * Reason Comments Med Refill Encounter Details Date Type Department Care Team (Late st Contact Info) Description 01/30/2021 Refill [facility] [address] [place] [address] Mohsen Mann MD [address] [place] [address] Social History Tobacco Use Types [...] on filedocumented in this encounter Care Teams Tank Tender Relationship Specialty Start Date End Date Herber Hussein MD [address] [place] [address] PCP - General Family Medicine 07/14/18 documented as of this encounter
--- OUTSIDE RECORDS SUMMARY | 2024-10-15 13:19 | XMS_ITS | Encounter Summary ---
Author Organization [facility] Address [address] [facility] [address] [place] [address] Phone Care Team Providers Care Speech Pathologist Assistant Name Role Phone Herber Hussein MD Primary Care Provider [phone] Encounter Details Date Type Department Care Team (Late st Contact Info) Description 09/29/2018 Orders Only [facility] [address] [place] [address] lT Lawson NP Chronic kidney disease stage 4 (HCC) Social History Tobacco Use Types Packs/Day Years [...] as of this encounter Visit Diagnoses Diagnosis Chronic kidney disease stage 4 (HCC) documented in this encounter Care Teams Speech Pathologist Assistant Relationship Specialty Start Date End Date Herber Hussein MD [address] [place] [address] PCP - General Family Medicine 07/14/18 documented as of this encounter
--- OUTSIDE RECORDS SUMMARY | 2024-10-15 13:19 | XMS_ITS | Encounter Summary ---
Author Organization [facility] Address [address] [place] [address] Phone Care Team Providers Care Recycling Worker Name Role Phone Herber Hussein MD Primary Care Provider [phone] Reason for Visit * Reason Comments Med Refill Encounter Details Date Type Department Care Team (Late st Contact Info) Description 10/29/2020 Refill [facility] [address] [place] [address] Mohsen Mann MD [address] [place] [address] Social History Tobacco Use Types [...] on filedocumented in this encounter Care Teams Recycling Worker Relationship Specialty Start Date End Date Herber Hussein MD [address] [place] [address] PCP - General Family Medicine 07/14/18 documented as of this encounter
--- OUTSIDE RECORDS SUMMARY | 2024-10-15 13:19 | XMS_ITS | Encounter Summary ---
Author Organization [facility] Address [address] [place] [address] Phone Care Team Providers Care Clinical Assessment Manager Name Role Phone Herber Hussein MD Primary Care Provider [phone] Reason for Visit * Reason Comments Med Refill Encounter Details Date Type Department Care Team (Late st Contact Info) Description 06/23/2024 Refill [facility] [address] [place] [address] Bee Chavarria MD [address] [place] [address] Social History Tobacco Use Types [...] on filedocumented in this encounter Care Teams Clinical Assessment Manager Relationship Specialty Start Date End Date Herber Hussein MD [address] [place] [address] PCP - General Family Medicine 07/14/18 documented as of this encounter
--- OUTSIDE RECORDS SUMMARY | 2024-10-15 13:19 | XMS_ITS | Data Portability ---
Author Organization DEMETRA Андрей Marinelli [facility], [place], [facility] Address [address] [facility] [place] [address] Care Team Providers Care Front Office Help Name Role Phone ALICIA HUSSEIN Primary Care Provider Unavailomar e Assessment No assessment recorded. Plan of Treatment Reminders Order Date Submit Date Provider Last Modified By Organization Details Last Modified Time Details Appointments RECHECK 15 2024 01:00P Courtney Hussein MD Not available Not available Not available Lab urinalys is, complete 2024 025 [place] [facility], [address] [facility], [facility] [address], [place], [address], 07/30/2024 13:33:07 culture, urine 2024 025 [employer] [facility], [address] [place] [address] [address] [place], [address], 08/01/2024 16:46:06 Referral colon & rectal surgeon referral 2024 025 [email or web address] Not available 06/06/2024 15:08:36 Procedures None recorded . Surgeries None recorded . Imaging NM, hepatobi liary scan 2024 025 [facility] (Scheduling Orders), [address] [place], [address], 10/09/2024 08:54:11 Medication Orders citalopr am 20 mg tablet [address] [facility]acy #[id number], [address], [address], [place], [address], 07/30/2024 12:54:20 amoxicil neel 500 mg capsule 2024 025 lei [id number], [address], [place], [address], 10/08/2024 15:17:43 sodium bicarbon ate 650 mg tablet 2024 025 [email or web address] [facility]/Pharmacy #[id number], [address], [address], [place], [address], 07/30/2024 13:53:02 amoxicil neel 875 mg tablet 2024 025 [id number], [address], [address], [place], [address], 09/01/2024 05:01:13 olopatad ine 0.1 % eye drops 2024 025 [id number], [address], [address], [place], [address], 06/08/2024 15:55:29 cetirizi ne 5 mg tablet 2024 025 [id number], [address], [address], [place], [address], 10/08/2024 15:20:57 ondanset felicitas HCl 4 mg tablet 2023 025 [id number], [address], [address], [place], [address], 10/08/2024 15:19:04 sodium bicarbon ate 650 mg tablet 2023 024 NAYELY [id number], [address], [address], [place], [address], 03/06/2024 13:16:33 Patient TargetsNo targets recorded. Patient InstructionsNo instructions recorded. Reason for Referral Colon & Rectal Surgeon Refer ral for Mass of colon Referring Physician: Alicia Hussein, Family Medicine, Encounter Date: 05/21/2024 Results Created Date Observation Date Name Description Value Unit Range Abnormal Flag Note LastModifiedBy Organization Detail LastModifiedTime 07/31/19 25 07/30/2024 URINA LYSIS WITH MICRO color YELLOW Not Available [facility] [address], [place], [address], 07/30/2024 13:33:07 07/31/19 25 07/30/2024 URINA LYSIS WITH MICRO clarity CLEAR Not Available [facility] [address], [place], [address], 07/30/2024 13:33:07 07/31/19 25 07/30/2024 URINA LYSIS WITH MICRO glu TRACE Not Available [facility] [address], [place], [address], 07/30/2024 13:33:07 07/31/19 25 07/30/2024 URINA LYSIS WITH MICRO bili NEGATI VE Not Available [facility] [address], [place], [address], 07/30/2024 13:33:07 07/31/19 25 07/30/2024 URINA LYSIS WITH MICRO ket NEGATI VE Not Available [facility] [address], [place], [address], 07/30/2024 13:33:07 07/31/19 25 07/30/2024 URINA LYSIS WITH MICRO S.g 1.020 1.005- 1.025 Not Available [facility] [address], [place], [address], 07/30/2024 13:33:07 07/31/19 25 07/30/2024 URINA LYSIS WITH MICRO pH 8.5 5.0-7. 0 high Not Available [facility] [address], [place], [address], 07/30/2024 13:33:07 07/31/19 25 07/30/2024 URINA LYSIS WITH MICRO pro 3+ Not Available [facility] [address], [place], [address], 07/30/2024 13:33:07 07/31/19 25 07/30/2024 URINA LYSIS WITH MICRO uro 0.2 Not Available [facility] [address], [place], [address], 07/30/2024 13:33:07 07/31/19 25 07/30/2024 URINA LYSIS WITH MICRO nit NEGATI VE Not Available [facility] [address], [place], [address], 07/30/2024 13:33:07 07/31/19 25 07/30/2024 URINA LYSIS WITH MICRO blo TRACE Not Available [facility] [address], [place], [address], 07/30/2024 13:33:07 07/31/19 25 07/30/2024 URINA LYSIS WITH MICRO shanita NEGATI VE Not Available [facility] [address], [place], [address], 07/30/2024 13:33:07 07/31/19 25 07/30/2024 URINA LYSIS WITH MICRO WBC 6-8 Not Available [facility] [address], [place], [address], 07/30/2024 13:33:07 07/31/19 25 07/30/2024 URINA LYSIS WITH MICRO RBC 1-3 Not Available [facility] [address] [facility] [address], [place], [address], 07/30/2024 13:33:07 07/31/19 25 07/30/2024 URINA LYSIS WITH MICRO epi cells 8-10 Not Available Андрей [facility] [address] [facility] [address], [place], [address], 07/30/2024 13:33:07 07/31/19 25 07/30/2024 URINA LYSIS WITH MICRO bacteria TRACE MIXED BERTHA Not Available Андрей [facility] [address] [facility] [address], [place], [address], 07/30/2024 13:33:07 07/31/19 25 07/30/2024 URINA LYSIS WITH MICRO other NEGATI VE Not Available Андрей [facility] [address] [facility] [address], [place], [address], 07/30/2024 13:33:07 07/31/19 25 08/01/2024 CULTU RE, URINE , ROUTI NE culture, urine, routine SEE NOTE abnormal CULTU RE, URINE , ROUTI NE Micro Numbe r: [id number] Test Statu s: Final Speci men [...] lexin and lorac arbef . Not Available [facility] [address] [place], [address], 08/01/2024 16:46:06 09/12/19 25 09/06/2024 colon oscop y proce dure (PROC ) No observ ation record ed. [email or web address] Not Available 09/12 10:11:12 Result Notes None recorded. Problems Name Problem SNOMED Code Status Onset Date Resolution Date Notes Provider Name and Address Organization Details Recorded Time Dependen ce on renal dialysis 976312661 Active LEEANNE fajardo [facility], LMireyaL.CMireya 5 14:10:11 Chronic ulcer of right foot Active LEEANNE fajardo [facility], LMireyaLMireyaCMireya 5 14:10:11 Fracture of inferior pubic ramus 263029119 Completed 06/08/2024 BHUPINDER fajardo [facility] 5 15:22:54 Tachycar sanjay 9521597 Active [facility] 14:10:11 Hypoxia 769573950 Completed 06/08/2024 BHUPINDER fajardo [facility] 5 15:22:54 Congesti ve heart failure 09609404 Active [facility] GUILLAU[facility] 5 17:03:13 Antepart um deep vein thrombos is 08923863 Active [facility] GUILL[facility] 5 14:10:11 At increase d risk of impaired respirat ory system function 253567248 Completed 06/08/2024 [facility] 5 15:22:54 Long-ter m current use of anticoag ulant 606649921 Completed 06/08/2024 BHUPINDER fajardo [facility] 5 15:22:54 Dystroph ia unguium 51174238 Completed 06/08/2024 BHUPINDER fajardo [facility] 5 15:22:54 Harmful pattern of use of psychoac tive substanc e 18913976 Completed 06/08/2024 BHUPINDER fajardo [facility] 5 15:22:54 Chronic ulcer of left foot Completed 06/08/2024 BHUPINDER fajardo [facility] L[facility]CM[facility]ya 5 15:22:54 Neuropat hic ulcer of right foot Completed 06/08/2024 BHUPINDER fajardo [facility] 5 15:22:54 Injury of left wrist 95504440717 124192 Completed 06/08/2024 [facility]UPINDER [place] [facility] 5 15:22:54 Sprain of left wrist 71750356482 351518 Completed 06/08/2024 [facility] 5 15:22:54 Deep venous thrombos is 114462402 Completed 06/08/2024 [facility] 5 15:22:54 Foot callus 858462531 Completed 06/08/2024 [facility] 5 15:22:54 Dyspnea 331320306 Completed 06/08/2024 [facility] 5 15:22:54 Subungua l hematoma of foot 483441478 Completed 06/08/2024 [facility] 5 15:22:54 Ulcer of big toe 830573982 Completed 06/08/2024 [facility] 5 15:22:54 Bronchit is 78997956 Completed 06/08/2024 [facility] 5 15:22:54 Dehydrat ion 70679428 Completed 06/08/2024 BHUPINDER fajardo [facility] 5 15:22:54 Malignan t tumor of anal canal 009585455 Completed 06/08/2024 BHUPINDER fajardo [facility] 5 15:22:54 Hypoxemi a 974780175 Completed 06/08/2024 BHUPINDER fajardo, [facility] 5 15:22:54 Vomiting 535532988 Completed 06/08/2024 BHUPINDER fajardo, [facility] 5 15:22:54 Dependen ce on peritone al dialysis 400463918 Completed 06/08/2024 BHUPINDER fajardo, [facility] 5 15:22:54 End-stag e renal disease 52259320 Completed 06/08/2024 BHUPINDER fajardo, [facility] 5 15:22:54 Acute hypokale zachery 17833610 Completed 06/08/2024 BHUPINDER fajardo, [facility] 5 15:22:54 Preopera tive state 45829477 Completed 06/08/2024 BHUPINDER fajardo, [facility] 5 15:22:54 COVID-19 320191911 Completed 06/08/2024 BHUPINDER fajardo, [facility] 5 15:22:54 Suspecte d COVID-19 965801566 Completed 06/08/2024 BHUPINDER fajardo, [facility] 5 15:22:54 History of procedur e 929283282 Completed 201906/08/2024 BHUPINDER fajardo, [facility] 5 15:22:54 Migraine 79197688 Completed 202205/21/2024 LEEANNE fajardo, [facility] 5 14:14:57 Complica tion due to diabetes mellitus type 2 Active 2022 TYPE II DIABETES MELLITUS WITH COMPLICA TION, UNCONTRO LLED; Impressi on: better control by report. LEEANNE fajardo [facility] 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 LEEANNE fajardo [facility] 5 14:10:11 Essentia l hyperten arnold 45895184 Active 2022 LEEANNE fajardo [facility] 14:10:11 End stage renal failure on dialysis 658469513 Active 2022 LEEANNE fajardo [facility] 14:10:11 History of deep vein thrombos is 670659887 Completed 202205/21/2024 LEEANNE fajardo [facility] 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 14:11:19 History of malignan t neoplasm of colon 639995925 Active 2022 LEEANNE fajardo [facility] 14:10:11 Diabetes mellitus 97120179 Active 2022 Alicia Hussein MD [address] [place] [address], [address], [facility] 5 12:50:30 Osteomye litis of right foot 96968226307 46663 Completed 202205/21/2024 LEEANNE fajardo [facility] 03/03/202 5 14:11:19 Generali zed anxiety disorder 77397788 Active 2022 LEEANNE DODDRIS [facility] 5 14:10:11 Restless legs 15902540 Active 2022 [facility]IS [facility] 14:10:11 Coronary atherosc lerosis 572435896 Active 2023 LEEANNE DODDRIS [facility], [facility] 5 14:15:17 Bilatera l cataract s 64968198 Completed 202305/21/2024 LEEANNE DODDRIS [facility] 5 14:12:49 Coronary arterios clerosis 29708062 Active 2023 LEEANNE GUILLAUME [facility] 5 14:10:11 Hematoch ezia 874983999 Completed 202305/21/2024 LEEANNE DODDRIS [facility] 5 14:16:31 Major depressi ve disorder 559223358 Active 2023 LEEANNE GUILLAUME [facility] 5 14:10:11 Iron deficien cy anemia 03470266 Active 2023 LEEANNE DODDRIS [facility] 5 14:10:11 Tenderne ss of right upper quadrant of abdomen 368948338 Completed 202305/21/2024 LEEANNE GUILLAUME [facility] 5 14:16:31 Gastroes ophageal reflux disease 671661201 Active 2023 [facility] 5 14:10:11 Mass of colon 092734149 Completed 202406/08/2024 BHUPINDER LAKE [facility] 5 15:22:54 Right upper quadrant pain 822463713 Active 2024 Alicia Hussein MD [address] [place] [address], [phone], [facility] 5 15:48:14 Problem Notes None recorded. Medical Equipment None Reported. Allergies Allergen ID Allergen Name Allergen Category Reaction Reaction Severity Criticality Documentation Date Start Date Code Code System Note Provider Name and Address Organization Details Recorded Time 06048 pseudoeph edrine tannate medicatio n itching rash mild mild low 10/16/2022 03564 1 RxNorm Samantha Perez [facility] 4 11:38:45 74104 Ceftin medicatio n itching rash mild mild low 10/16/2022 48296 6 RxNorm Samantha Perez [facility] 4 11:38:26 48157 doxycycli ne hyclate medicatio n vomiting moderate low 10/16/2022 18508 RxNorm Samantha Perez [facility] 4 11:38:31 76426 acetamino phen / dextromet horphan / guaifenes in / pseudoeph edrine medicatio n Not available Not available Not available 10/16/2022 42708 8 RxNorm Samantha Perez [facility] 4 11:38:46 37580 doxycycli ne Not available Not available Not available Not available 03/06/20242023 3640 RxNorm LEEANNE GUILLAUME [facility] 4 12:28:55 15744 latex environme nt,medica tion Not available Not available Not available 03/06/20242023 64541 91 RxNorm LEEANNE fajardo [facility] 12:28:55 Medications Name Sig Start Date Stop [...] Coreg BID 10/19 completed 0; Recorded 06/08/19 2:50PM by Leeanne Guillaume, Office Visit; Not [...] e Short Pen Needle 31 gauge x 08/03 active Not Available Not Available Not Available [...] microgra ms 3 times a week by fernandoen . route. 10/08 completed Not Available Not Available Not Available Vitals Date Recorded Body height Body mass index (BMI) Body weight Oxygen saturation Oxygen saturation in Arterial blood by Pulse oximetry Heart rate Systolic And Diastolic Provider Name and Address Organization Details Last Updated DateTime 5 175.26 cm 24.5 kg/m2 93781.3 3 g 94 % 94 % 97 /min 130/62 mm[Hg] [facility]ya 5 17:12:23 Date Recorded Body height Body mass index (BMI) Body weight Heart rate Systolic And Diastolic Provider Name and Address Organization Details Last Updated DateTime 06/08/2024 175.26 cm 23.5 kg/m2 66437.19 g 94 /min 105/50 mm[Hg] BHUPINDER [facility] L.L.CMireya 5 15:12:18 Date Recorded Body height Body mass index (BMI) Body weight Oxygen saturation Oxygen saturation in Arterial blood by Pulse oximetry Heart rate Systolic And Diastolic Provider Name and Address Organization Details Last Updated DateTime 5 175.26 cm 23.9 kg/m2 10536.9 6 g 90 % 90 % 54 /min 110/70 mm[Hg] [facility]CM[facility]ya 5 12:13:42 Date Recorded Body height Body mass index (BMI) Body weight Heart rate Systolic And Diastolic Provider Name and Address Organization Details Last Updated DateTime 10/08/2024 175.26 cm 22 kg/m2 39593.26 g 72 /min 124/59 mm[Hg] BHUPINDER [facility]CMireya 5 15:16:48 Date Recorded Body height Body mass index (BMI) Body weight Oxygen saturation Oxygen saturation in Arterial blood by Pulse oximetry Heart rate Systolic And Diastolic Provider Name and Address Organization Details Last Updated DateTime 4 175.26 cm 24.5 kg/m2 15496.3 3 g 97 % 97 % 105 /min 142/80 mm[Hg] [facility] 4 12:35:15 Social History Question Answer Notes LastModified by Organizat ion Details LastModified Time Tobacco Smoking Status Current Every Day Smoker LEEANNE GUILLAUMEDESHAWN fajardo, [facility] 10/19/2022 11:35:39 What Was The Date Of Your Most Recent Tobacco Screening? 10/08/2024 [email or web address] Information not available 10/08/2024 Sex: Unknown Functional Status Question Answer Note LastModified by Organizat ion Details LastModified Time Do you use any illicit or recreational drugs? No [email or web address] Information not available 10/19/2022 What is your level of alcohol consumption? None [email or web address] Information not available 10/19/2022 Mental Status None [...] Td(adult) unspecified formulation 1 completed Not Available [facility] 04/[facility]/2023 15:11:02 Tdap 7 completed NILAY KRUSE PA-C [address] [place], [address], [facility] 09/13/2022 15:07:01 Td (adult), 2 Lf tetanus toxoid, preservative free, adsorbed 2 completed NILAY KRUSE PA-C [address] [place], [address], [facility] 09/13/2022 15:07:01 Past Encounters Encounter ID Performer Location Encounter Start Date Encounter Closed Date Diagnosis/Indication Diagnosis SNOMED-CT Code Diagnosis ICD10 Code Diagnosis Note [id number] NILAY KRUSE PA-C [facility] ([facility]) [address] [place] [address] 09/13/2022 14:42:44 09/13/2022 19:54:38 Swelling of lower leg 412856993 R22.41 Venous doppler revealed no evidence of DVT. likely edema is venous stasus. encouraged compressio n wraps and elevation. She has appt tomorrow for fistulogra m. End stage renal failure on dialysis 893325301 N18.6 History of deep vein thrombosis 148540388 Z86.718 Acquired c oagulation factor inhibitor disorder 89121925 D68.8 on Eliquis History of malignant neoplasm of colon 813522268 Z85.038 [id number] NILAY KRUSE PA-C [facility] ([facility]) [address] [place] [phone] 09/13/2022 15:37:41 09/13/2022 19:06:42 [id number] Alicia Hussein MD [facility] ([facility]) [address] [place] [phone] 10/19/2022 11:21:25 10/19/2022 15:41:59 Diabetes mellitus 59081668 E13.42 followed by endocrinol ogy. Osteomyeli tis of right foot 1882936227 007750 M86.9 right fifth toe. S/P amputation . Would benefit from a scooter for improved ambulation . Generalize d anxiety disorder 45283461 F41.1 [id number] Alicia Hussein MD [facility] ([facility]) [address] [place] [phone] 12/03/2022 11:00:55 12/03/2022 11:42:02 [id number] lAicia Hussein MD [facility] ([facility]) [address] [place] [phone] 12/10/2022 14:08:08 12/10/2022 16:14:04 Diabetes mellitus 82379550 E13.42 followed by endocrinol ogy. End stage renal failure on dialysis 055549388 N18.6 Essential hypertension 20272386 I10 Generalize d anxiety disorder 91796513 F41.1 Visual disturbance 44795 001 H53.9 [id number] Alicia Hussein MD [facility] ([facility]) [address] [place] [phone] 02/28/2023 13:32:16 02/28/2023 14:35:19 Depressive disorder 16187793 F32.9 End stage renal failure on dialysis 621384949 N18.6 Cataract 080081627 H26.9 Atypical chest pain 1025 29782 R07.89 lexiscan sestamibi stress test to be done before cataract surgery can be done. Mixed anxi ety and depressive disorder 696426165 F41.8 Restless legs 54773489 G 25.81 [id number] Shan Vitale MD [facility] ([facility]) [address] [place] [phone] 03/17/2023 12:43:56 03/17/2023 14:08:31 Cellulitis of skin 106910260 L03.90 Lesion is more consistent with infection. It is right in the midline and would not be typical for shingles. Concerned about bacterial infection. Start mupirocin 3 times daily. Follow-up with PCP if symptoms do not improve [id number] Alicia Hussein MD [facility] ([facility]) [address] [place] [phone] 04/04/2023 11:19:56 04/04/2023 12:29:40 Depressive disorder 06996224 F32.9 Diabetes mellitus 782132 09 E11.21 followed by endocrinol renu. End stage renal failure on dialysis 845327530 N18.6 Coronary atherosclerosis 787288756 I25.10 Stable with recent stress test. Cleared for cataract surgery. [id number] Alicia Hussein MD [facility] ([facility]) [address] [place] [phone] 5 04/19/2023 15:10:53 04/19/2023 17:50:30 Essential hypertension 80360162 I10 End stage renal failure on dialysis 602579258 N18.6 Bilateral cataracts 9572 2003 H26.9 Coronary arteriosclerosis 43820786 I25.10 [id number] Alicia Hussein MD [facility] ([facility]) [address] [place] [phone] 06/03/2023 11:50:39 06/03/2023 12:53:56 Acute sinusitis 98928537 J01.90 Hematochezia 598257887 K 92.1 Major depr essive disorder 431841737 F32.9 has been doing well on 60mg Citalopram but having lots of health issues and is more depressed today. Primary ma lignant neoplasm of colon 66784652 C18.9 has been in remission. [id number] Alicia Hussein MD [facility] ([facility]) [address] [place] [id number] 06/14/2023 09:57:10 06/14/2023 12:17:52 Chronic obstructive pulmonary disease 66526944 J44.9 Diabetes mellitus 869954 09 E11.21 followed by endocrinol ogy. End stage renal failure on dialysis 056316795 N18.6 Essential hypertension 88811187 I10 Generalize d anxiety disorder 37863197 F41.1 Hospital i npatient stay within past 30 days 1456605682 106 Z76.89 doing much better. Major depr essive disorder 160016907 F32.9 has been doing well on 60mg Citalopram but having lots of health issues and is more depressed today. [id number] Alicia Hussein MD [facility] ([facility]) [address] [place] [phone] 08/09/2023 15:38:41 08/09/2023 16:53:06 Osteomyelitis of right foot 1151631025 289267 M86.9 Cellulitis of skin 46493 1002 L03.90 improving, followed by wound clinic. Iron defic iency anemia 93183895 D50.9 Now on Carafate suspension Diabetes mellitus 891451 09 E11.21 Sugar running low, will stop Januvia and monitor. [id number] Alicia Hussein MD [facility] ([facility]) [address] [place] [id number] 10/11/2023 13:56:17 10/11/2023 14:47:04 Osteomyelitis of right foot 5544816005 590858 M86.9 Cellulitis of skin 65245 1002 L03.90 Resolved. Complicati on due to diabetes mellitus type 2 0438608833 9100 E11.8 Tenderness of right upper quadrant of abdomen 131557746 R10.811 End stage renal failure on dialysis 824784993 N18.6 Essential hypertension 12939315 I10 Generalize d anxiety disorder 90018644 F41.1 [id number] Alicia Hussein MD [facility] ([facility]) [address] [place] [phone] 10/19/2023 10:49:43 10/19/2023 17:31:07 [id number] Alicia Hussein MD [facility] ([facility]) [address] [place] [phone] 5 12/06/2023 16:28:14 12/06/2023 17:24:33 Complication due to diabetes mellitus type 2 [id number] 9100 E11.8 Generalize d anxiety disorder 02894087 F41.1 End stage renal failure on dialysis 369931060 N18.6 She would like to get back on the transplant list. She will discuss with her Nephrologi st about this. Major depr essive disorder 301798075 F32.9 Coronary atherosclerosis 291735408 I25.10 Essential hypertension 26486157 I10 Tenderness of right upper quadrant of abdomen 467390470 R10.811 Awaiting HIDA scan. Gastroesop hageal reflux disease 723011995 K21.9 [id number] Alicia Hussein MD [facility] ([facility]) [address] [place] [phone] 5 03/06/2024 11:53:40 03/08/2024 11:04:07 Nausea and vomiting 29697174 R11.2 Diabetes mellitus 528238 09 E13.42 Sugar up and down some. Chronic ul cer of right foot 5262175530 7894921 L97.519 Osteomyeli tis probable and being placed on Vancomycin at dialysis. Coronary atherosclerosis 557388007 I25.10 End stage renal failure on dialysis 225897243 N18.6 Gastroesop hageal reflux disease 600270127 K21.9 [id number] Alicia Hussein MD [facility] ([facility]) [address] [place] [address] 69039-591 5 05/21/2024 16:45:43 05/22/2024 15:41:19 Mass of colon 410320793 R19.09 cystic mass of sigmoid colon with history of rectal CA. Diabetes mellitus 802183 09 E13.42 Sugar up and down some. End stage renal failure on dialysis 117762191 N18.6 Generalize d anxiety disorder 81206253 F41.1 History of malignant neoplasm of colon 428336628 Z85.688 [id number] Alicia Hussein MD [facility] ([facility]) [address] [place] [address] 06/08/2024 14:45:11 06/09/2024 07:29:40 Acute sinusitis 59027648 J01.90 Diabetes mellitus 754759 09 E13.42 Sugar up and down some. Dependence on renal dialysis 421417466 Z99.2 Allergic conjunctivitis of bilateral eyes 7320974796 16433 H10.13 [id number] Alicia Hussein MD [facility] ([facility]) [address] [place] [phone] 07/30/2024 11:43:46 07/31/2024 09:35:28 Diabetes mellitus 24846159 E11.21 Sugar up and down some. Due for A1c next week at dialysis. Left flank pain 32189386 9 R10.9 Gastroesop hageal reflux disease 687417179 K21.9 Generalize d anxiety disorder 52050598 F41.1 [id number] Alicia Hussein MD [facility] ([facility]) [address] [place] [phone] 10/08/2024 14:59:42 10/08/2024 17:11:53 Right upper quadrant pain 084960556 R10.11 Diabetes mellitus 484306 09 E11.21 End stage renal failure on dialysis 347947649 N18.6 Essential hypertension 88046524 I10 Health Concerns Section Related Observation LastModified by Organization Detai ls LastModified Time None Recorded Concern Status LastModified by Organization Details LastModified Time None Recorded Advance Directives Directive None Recorded Payers Insurance Date Sequence Insurance Name Policy Number Policy Ramon Covered Member ID Ramon Member ID Guarantor Name 10/06/2024 1 [place] Bharati Anthony [id number] Bharati Anthony 10/06/2024 2 [place] Bharati Anthony [id number] Bharati Anthony 10/06/2024 [place] [facility] Bharati Anthony [id number] Bharati Anthony 10/06/2024 [place] - MEDICARE-[place] - PART A - [facility] (MEDICARE) Bharati Anthony [id number] Bharati Anthony OBGyn Episode No OBEpisode recorded.
--- OUTSIDE RECORDS SUMMARY | 2024-10-15 13:19 | XMS_ITS | Encounter Summary ---
Author Organization [facility] Address [address] [place] [address] Phone Care Team Providers Care Textile Designer Name Role Phone Herber Hussein MD Primary Care Provider [phone] Reason for Visit * Reason Comments Med Refill Encounter Details Date Type Department Care Team (Late st Contact Info) Description 08/21/2021 Refill [facility] [address] [place] [address] Mohsen Mann MD [address] [place] [address] Social History Tobacco Use Types [...] on filedocumented in this encounter Care Teams Textile Designer Relationship Specialty Start Date End Date Herber Hussein MD [address] [place] [address] PCP - General Family Medicine 07/14/18 documented as of this encounter
--- OUTSIDE RECORDS SUMMARY | 2024-10-15 13:19 | XMS_ITS | Encounter Summary ---
Author Organization [facility] [employer] Address [address] [place] [address] Phone Care Team Providers Care Certified Pharmacy Technician Name Role Phone Herber Hussein MD Primary Care Provider [phone] Encounter Details Date Type Department Care Team (Late st Contact Info) Description 11/08/2018 Orders Only [facility] [address] [place] [address] Sherry Lau MA [address] [place] [address] Chronic kidney disease stage 4 (HCC); Essential hypertension Social History Tobacco Use Types Packs/Day Years [...] on file documented as of this encounter Progress Notes * Mohsen Mann MD - 11/08/2018 11:59 PM CDT Call patient and tell them that renal function is stable and stay on her current medications. documented in this encounter Plan of Treatment Not on file documented as of this encounter Procedures Procedure Name Priority Date/Time Associated Diagnosis Comments PROTEIN / CREATININE RATIO, URINE Routine 11/06/2018 5:05 AM CDT Chronic kidney disease stage 4 (HCC) Essential hypertension CBC Routine 11/06/2018 5:05 AM CDT Chronic kidney disease stage 4 (HCC) Essential hypertension RENAL FUNCTION PANEL Routine 11/06/2018 5:05 AM CDT Chronic kidney disease stage 4 (HCC) Essential hypertension documented in this encounter Results * (ABNORMAL) Protein / creatinine ratio, urine (11/06/2018 5:05 AM CDT) Creatinine, Ur 80 20 - 275 mg/dL [facility] Urine Protein/Creati nine Ratio 1,950(H) 21 - 161 mg/g creat [facility] Protein Urine Random 156(H) 5 - 24 mg/dL [facility] Urine specimen (specimen) Urine specimen obtained by clean catch procedure / Unknown 11/06/2018 5:05 AM CDT 11/06/2018 5:05 AM CDT Narrative Resulting Agency Comment Performing Organization Information: Site ID: [place] Name: [facility] Address: [address] [facility] [place] [address] Director: Jadiel Winslow D.O., MPH us Mohsen Mann MD LAB URINE ORDERABLES Fi nal Result [facility] * (ABNORMAL) Renal function panel (11/06/2018 5:05 AM CDT) Glucose 287(H) 65 - 99 mg/dL [facility] Comment: Fasting reference interval For someone without known diabetes, a glucose value >125 mg/dL indicates that they may have diabetes and this should be confirmed with a follow-up test. BUN 53(H) 7 - 25 mg/dL [facility] Creatinine 3.35(H) 0.50 - 1.10 mg/dL [facility] eGFR Non- 16(L) > OR = 60 mL/min/1.7 3m2 [facility] eGFR 18(L) > OR = 60 mL/min/1.7 3m2 [facility] BUN/Creatinine Ratio 16 6 - 22 (calc) [facility] Sodium 137 135 - 146 mmol/L [facility] Potassium 4.4 3.5 - 5.3 mmol/L [facility] Chloride 105 98 - 110 mmol/L [facility] Bicarbonate (CO2) 20 20 - 32 mmol/L [facility] Calcium 9.2 8.6 - 10.2 mg/dL [facility] Phosphorus 3.9 2.5 - 4.5 mg/dL [facility] Albumin 4.2 3.6 - 5.1 g/dL [facility] Blood specimen (specimen) Venous blood / Unknown 11/06/2018 5:05 AM CDT 11/06/2018 5:05 AM CDT Narrative Resulting Agency Comment Performing Organization Information: Site ID: RIK Name: [facility] Address: [address] [place] [address] Director: Jadiel Winslow D.O., MPH Mohsen Mann MD LAB BLOOD ORDERABLES nal Result [facility] * (ABNORMAL) CBC (11/06/2018 5:05 AM CDT) WBC 9.0 3.8 - 10.8 Thousand/uL [facility] RBC 3.19(L) 3.80 - 5.10 Million/uL [facility] Hemoglobin 10.0(L) 11.7 - 15.5 g/dL [facility] Hematocrit 29.4(L) 35.0 - 45.0 % [facility] MCV 92.2 80.0 - 100.0 fL [facility] MCH 31.3 27.0 - 33.0 pg [facility] MCHC 34.0 32.0 - 36.0 g/dL [facility] RDW 13.0 11.0 - 15.0 % [facility] Platelets 232 140 - 400 Thousand/uL [facility] MPV 10.6 7.5 - 12.5 fL [facility] Blood specimen (specimen) Venous blood / Unknown 11/06/2018 5:05 AM CDT 11/06/2018 5:05 AM CDT Narrative Resulting Agency Comment Performing Organization Information: Site ID: RIK Name: [facility] Address: [address] [address] Director: Jadiel Winslow D.O., MPH us Mohsen Mann MD LAB BLOOD ORDERABLES Fi nal Result [facility] documented in this encounter Visit Diagnoses Diagnosis Chronic kidney disease stage 4 (HCC) Essential hypertension documented in this encounter Care Teams Certified Pharmacy Technician Relationship Specialty Start Date End Date Herber Hussein MD [address] [place] [address] PCP - General Family Medicine 07/14/18 documented as of this encounter
--- OUTSIDE RECORDS SUMMARY | 2024-10-15 13:19 | XMS_ITS | Encounter Summary ---
Author Organization [facility] Address [address] [place] [address] Phone Care Team Providers Care Flat Ironer Name Role Phone Herber Hussein MD Primary Care Provider [phone] Reason for Visit * Reason Comments Med Refill Encounter Details Date Type Department Care Team (Late st Contact Info) Description 05/30/2020 Refill [facility] [address] [place] [address] Mohsen Mann MD [address] [place] [address] Social History Tobacco Use Types [...] on filedocumented in this encounter Care Teams Flat Ironer Relationship Specialty Start Date End Date Herber Hussein MD [address] [place] [address] PCP - General Family Medicine 07/14/18 documented as of this encounter
--- OUTSIDE RECORDS SUMMARY | 2024-10-15 13:19 | XMS_ITS | Clinical Summary ---
Author Organization [facility] Facility Address [address] [place] [address] Care Team Providers Care Director Client Name Role Phone Herber Hussein MD Primary Care Provider [phone] Allergies Active Allergy Reactions Criticality Noted Date Comments Adhesive Tape 03/31/2018 Other reaction(s): Other (See Comments) blister Cephalexin Rash Medium 05/24/2018 Cephalosporins Rash Low 04/01/2017 Tolerated zosyn, unasyn Latex Rash Medium 05/24/2018 Medications Vit-Fe Fumarate-FA ( VITAMIN PO) Take 1 tablet by mouth 1 (one) time each day Active ergocalciferol (DRISDOL) 34444 units capsule Take 1 capsule by mouth 1 (one) time per week 8 Active SITagliptin (JANUVIA) 100 MG tablet Take 100 mg by mouth 1 (one) time each day Active citalopram (CeleXA) 40 MG tablet Take 40 mg by mouth 1 (one) time each day Active amLODIPine (NORVASC) 10 MG tablet Take 1 tablet (10 mg total) by mouth 1 (one) time each day 30 tablet 11 9 Active sodium bicarbonate 650 MG tablet Take 1 tablet (650 mg total) by mouth 4 (four) times a day 120 tablet 2 9 Active Additional Information Patient taking differently:650 mg OralDaily PRN, Reported on 11/13/2020 Semaglutide,0.25 or 0.5MG/DOS, (OZEMPIC, 0.25 OR 0.5 MG/DOSE,) 2 MG/1.5ML solution pen-injector Inject 0.25 mg under the skin per week Active ondansetron (ZOFRAN) 4 MG tablet Take 1 tablet (4 mg total) by mouth every 6 (six) hours if needed for nausea or vomiting 20 tablet 0 Active apixaban (Eliquis) 2.5 MG tablet Take 2.5 mg by mouth 2 (two) times a day Active Active Problems Problem Noted Date Diagnosed Date Nephrotic syndrome 01/11/2022 Generalized anxiety disorder 12/31/2020 Vitamin D deficiency 04/09/2020 End stage renal failure on dialysis 01/10/2020 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 Iron deficiency anemia 01/10/2020 Secondary hyperparathyroidism of renal origin Shortness of breath 01/10/2020 Type 2 diabetes mellitus wit h diabetic chronic kidney disease 01/10/2020 Fracture of neck of femur 06/01/2019 Overview (01/11/2022): Added automatically from request for surgery [id number] Anemia in chronic kidney disease 10/10/2018 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 05/25/2018 Acute nontraumatic kidney injury 05/25/2018 Essential hypertension 05/25/2018 Type 2 diabetes mellitus 05/25/2018 IgA nephropathy 05/25/2018 Thromboembolism of vein 06/12/2017 Tobacco use 04/26/2017 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 Methamphetamine abuse 04/01/2017 Splenic infarction 04/01/2017 Encounters Date Type Department Care Team Description 10/10/2024 [facility] [address] [place] [address] Bee Chavarria MD 10/10/2024 Treatment [facility] [address] [place] [address] Bee Chavarria MD End stage renal disease; Dependence on renal dialysis 10/05/2024 Orders Only [facility] [address] [place] [address] Bee Chavarria MD 10/05/2024 Documentation Only [facility] [address] [place] [address] Daisy Lindsay NP 10/04/2024 Telephone [facility], [facility] [address] [place] [address] Yuliana Maradiaga NP 09/26/2024 [facility], [facility] [address] [place] [address] Bee Chavarria MD 09/26/[address] [place] [address], [facility] [address] [place] [address] Daisy Lindsay NP End stage renal disease; Dependence on renal dialysis 09/19/2024 [facility], [facility] [address] [place] [address] Bee Chavarria MD 09/19/[address] [place] [address], [facility] [address] [place] [address] Daisy Lindsay NP End stage renal disease; Dependence on renal dialysis 09/12/2024 Orders [facility], [facility] [address] [place] [address] Bee Chavarria MD 09/10/[address] [place] [address], [facility] [address] [place] [address] Ana Viramontes NP End stage renal disease; Dependence on renal dialysis 09/05/2024 [facility], [facility] [address] [place] [address] Bee Chavarria MD 09/05/[address] [place], [place] [address], [facility] [address] [place] [address] Bee Chavarria MD End stage renal disease; Dependence on renal dialysis 08/29/2024 Orders Only [facility], [facility] [address] [place] [address] Bee Chavarria MD 08/27/2024 [facility] [address] [place] [address] Ana Viramontes NP End stage renal disease; Dependence on renal dialysis 08/24/2024 Orders [facility], [facility] [address] [place] [address] Bee Chavarria MD 08/20/2024 Treatment [facility], [facility] [address] [place] [address] Ana Viramontes NP End stage renal disease; Dependence on renal dialysis 08/17/2024 Orders [facility], [facility] [address] [place] [address] Bee Chavarria MD 08/15/2024 Orders Only [facility], [facility] [address] [place] [address] Bee Chavarria MD 08/15/2024 Treatment [facility], [facility] [address] [place] [address] Bee Chavarria MD End stage renal disease; Dependence on renal dialysis 08/08/2024 Orders Only [facility], [facility] [address] [place] [address] Bee Chavarria MD 08/06/2024 Orders Only [facility], [facility] [address] [place] [address] Bee Chavarria MD 08/06/2024 Treatment [facility], [facility] [address] [place] [address] Daisy Lindsay NP End stage renal disease; Dependence on renal dialysis 08/01/2024 Orders Only [facility], [facility] [address] [place] [address] Bee Chavarria MD 07/30/2024 Treatment [facility], [facility] [address] [place] [address] Ana Viramontes NP End stage renal disease; Dependence on renal dialysis 07/27/2024 Orders Only [facility], [facility] [address] [place] [address] Bee Chavarria MD 07/25/2024 Orders Only [facility], [facility] [address] [place] [address] Bee Chavarria MD 07/23/2024 [facility] [address] [place] [address] Daisy Lindsay NP End stage renal disease; Dependence on renal dialysis 07/18/2024 Orders Only [facility], [facility] [address] [place] [address] Bee Chavarria MD from Last 3 Months Immunizations Immunization Administration Dates Next Due Td 04/22/2001 Family History Medical History Relation Comments Hypertension Father 2 Stroke Father 2 Cancer Mother 2 Relation Status Comments Father 1 Alive Father 2 Mother 1 Alive Mother 2 Social History Tobacco Use Types Packs/Day Years [...] on file Sexual Orientation Not on file Last Filed Vital Signs Vital Sign Reading Time Taken Comments Blood Pressure 130/60 11/13/2020 9:48 AM CDT Pulse 90 11/13/2020 9:48 AM CDT Temperature - - Respiratory Rate - - Oxygen Saturation - - Inhaled Oxygen Concentration - - Weight 65.5 kg (144 lb 6.4 oz) 11/13/2020 9:48 A M CDT Height 175.3 cm (5' 9 ) 11/13/2020 9:48 AM CDT Body Mass Index 21.32 11/13/2020 9:48 AM CDT Plan of Treatment Health Maintenance Due Date Last Done Comments Breast Cancer Screening 1974 Hepatitis B Vaccine (1 of 5 - Risk Dialysis 4-dose series) 1994 Diabetes: Ophthalmology Exam 05/25/2018 Diabetes: Pedal Pulse Checked 05/25/2018 Diabetes: Sensory Foot Exam 05/25/2018 Diabetes: Visual Foot Exam 05/25/2018 Colorectal Cancer Screening: Annual FOBT 06/11/2023 Colorectal Cancer Screening: Colonoscopy 06/11/2023 Colorectal Cancer Screening: Sigmoidoscopy 06/11/2023 Diabetes: Hemoglobin A1C 05/22/2024 024, 11/23/2023, 08/24/2023, Additional history exists Pneumococcal Vaccine: 50+ Ye ars (3 of 3 - PCV20 or PCV21) 07/23/2024 07/24/2019, 05/21/2019 Influenza Vaccine (#1) 2024 , 12/29/2022, 12/16/2021, Additional history exists Pneumococcal Vaccine: Peds ( 0 to 5 Years) and At-Risk Patients (6 to 49 Years) Discontinued 07/24/2019, 05/21/2019 Procedures Procedure Name Priority Date/Time Associated Diagnosis Comments HEMATOLOGY Routine 10/10/2024 HEMATOLOGY Routine 10/05/2024 [facility] RESULTS Routine 09/26/2024 HD KINETICS Routine 09/26/2024 POST CHEMISTRY Routine 09/26/2024 CHEMISTRY Routine 09/26/2024 HEMATOLOGY Routine 09/26/2024 CHEMISTRY Routine 09/19/2024 HEMATOLOGY Routine 09/19/2024 HEMATOLOGY Routine 09/12/2024 HEMATOLOGY Routine 09/05/2024 HEMATOLOGY Routine 08/29/2024 [facility] LAB RESULTS Routine 08/24/2024 HD KINETICS Routine 08/24/2024 POST CHEMISTRY Routine 08/24/2024 CHEMISTRY Routine 08/24/2024 CHEMISTRY Routine 08/24/2024 HEMATOLOGY Routine 08/24/2024 HEMATOLOGY Routine 08/17/2024 HEMATOLOGY Routine 08/15/2024 CHEMISTRY Routine 08/15/2024 HEMATOLOGY Routine 08/08/2024 [facility] LAB RESULTS Routine 08/06/2024 HD KINETICS Routine 08/06/2024 POST CHEMISTRY Routine 08/06/2024 CHEMISTRY Routine 08/06/2024 HEMATOLOGY Routine 08/01/2024 CULTURE,BLOOD-2ND SET Routine 07/27/2024 BLOOD CULTURE Routine 07/27/2024 [facility] LAB RESULTS Routine 07/25/2024 HD KINETICS Routine 07/25/2024 POST CHEMISTRY Routine 07/25/2024 CHEMISTRY Routine 07/25/2024 HEMATOLOGY Routine 07/25/2024 HEMATOLOGY Routine 07/18/2024 SPECIAL CHEMISTRY Routine 02/22/2024 from Last 3 Months or Most Recently Relevant to Health Maintenance Results * (ABNORMAL) HEMATOLOGY (10/10/2024) Only the most recent of14 resultswithin the time period is included. Hemoglobin 10.8(L) 12.0 - 16.0 g/dL [facility] Hemoglobin x 3 32.4(L) 36.0 - 48.0 % [facility] 10/10/2024 10/11/2024 9:0 7 AM CDT Narrative [facility] - 10/11/2024 Unless otherwise specified, test(s) performed at: [facility], [address] [place] [address] BEAVER TRAPPER: Michael Knox M.D. For any questions, please call customer service at FREQUENCY:OTHER Resulting Agency Comment Specimen source: Blood Bee Chavarria MD LAB BLOOD ORDERABLES Final Re sult Performing Organization Address City/[facility]/ZIP Co de Phone Number [id number] See order comments or contact performing lab Unknown, [place] * HD KINETICS (09/26/2024) Only the most recent of4 resultswithin the time period is included. % Urea Reduction 80 65 - 80 % [facility] 09/26/2024 09/27/2024 11: 55 AM CDT Narrative Resulting Agency Comment Specimen source: Plasma Bee Chavarria MD LAB BLOOD ORDERABLES Final Re sult [id number] See order comments or contact performing lab Unknown, [place] * POST CHEMISTRY (09/26/2024) Only the most recent of4 resultswithin the time period is included. BUN Post Dialysis 12 6 - 19 mg/dL [facility] 09/26/2024 09/27/2024 11: 55 AM CDT Narrative [facility] - 09/27/2024 Unless otherwise specified, test(s) performed at: [facility], [address] [place], [place] [id number] BEAVER TRAPPER: Michael Knox M.D. For any questions, please call customer service at FREQUENCY:OTHER Resulting Agency Comment Specimen source: Plasma us Bee Chavarria MD LAB BLOOD ORDERABLES Final Re sult Performing Organization Address [facility]/ZIP Co de Phone Number [facility] See order comments or contact performing lab Unknown, [place] * (ABNORMAL) [facility] (09/26/2024) Only the most recent of7 resultswithin the time period is included. Pathologist [facility] BUN 59(H) 6 - 19 mg/dL [facility] 09/26/2024 09/27/2024 12: 27 PM CDT Narrative [facility] - 09/27/2024 Unless otherwise specified, test(s) performed at: [facility], [address] [place] [id number] BEAVER TRAPPER: Michael Knox M.D. For any questions, please call customer service at FREQUENCY:OTHER Resulting Agency Comment Specimen source: Serum us Bee Chavarria MD LAB BLOOD ORDERABLES Final Re sult [facility] See order comments or contact performing lab Unknown, [place] * [facility] Results (09/26/2024) Only the most recent of4 resultswithin the time period is included. Pathologist [facility] eKt/V Gotch 1.30 [facility] spKt/V (Daugirdas II) 1.64 [facility] PCR 56.82 [facility] eNPCR 0.91 [facility] WSTDKT/V 1.6 [facility] nPCR_HD 1.00 [facility] eKdrt/V 1.30 [facility] spKt/V Gotch 1.61 [facility] eKt/V ([place]) 1.36 [facility] 09/26/2024 09/26/2024 [facility] Ordering Provider LAB BLOOD ORDERABLES Final Result [facility] Center Contact Performing lab Unknown, [place] * Blood culture (07/27/2024) Culture Result See below [facility] Comment: No Aerobic or Anaerobic Growth after 5 Days of Incubation. 07/27/2024 07/28/2024 10: 10 AM CDT Narrative [facility] - 08/02/2024 Unless otherwise specified, test(s) performed at: [facility], [address] [place] [address] BEAVER TRAPPER: Michael Knox M.D. For any questions, please call customer service at FREQUENCY:OTHER Resulting Agency Comment Specimen source: Blood/Dialysis Bloodline Bee Chavarria MD LAB MICROBIOLOGY - GENERAL OR DERABLES Final Result Performing Organization Address City/[facility]/ZIP Co de Phone Number [facility] See order comments or contact performing lab Unknown, [place] * Blood culture (07/27/2024) Culture, Blood See below [facility] Comment: No Aerobic or Anaerobic Growth after 5 Days of Incubation. 07/27/2024 07/28/2024 10: 10 AM CDT Narrative [facility] - 08/02/2024 Unless otherwise specified, test(s) performed at: [facility], [address] [place] [id number] BEAVER TRAPPER: Michael Knox M.D. For any questions, please call customer service at FREQUENCY:OTHER Resulting Agency Comment Specimen source: Blood/Dialysis Bloodline Bee Chaavrria MD LAB MICROBIOLOGY - GENERAL OR DERABLES Final Result [facility] See order comments or contact performing lab Unknown, [place] * (ABNORMAL) SPECIAL CHEMISTRY (02/22/2024) Hemoglobin A1C 6.1(H) 4.8 - 5.9 % [facility] 02/22/2024 02/23/2024 11: 16 AM SENIOR ANDROID SOFTWARE ENGINEER Narrative [facility] - 02/23/2024 Unless otherwise specified, test(s) performed at: [facility], [address] [place] [address] BEAVER TRAPPER: Michael Knox M.D. For any questions, please call customer service at FREQUENCY:MONTHLY Resulting Agency Comment Specimen source: Blood Bee Chavarria MD LAB BLOOD BANK TEST ORDERABLE S Final Result Performing Organization Address City/[facility]/ZIP Co de Phone Number [facility] See order comments or contact performing lab Unknown, [place] from Last 3 Months or Most Recently Relevant to Health Maintenance Insurance Medicaid [place] ([id number]) Medicare Care Teams Director Client Relationship Specialty Start Date End Date Herber Hussein MD [address] [place] [address] PCP - General Family Medicine 07/14/18
--- OUTSIDE RECORDS SUMMARY | 2024-10-15 13:19 | XMS_ITS | Encounter Summary ---
Author Organization [facility] Address [address] [facility] [address] [place] [address] Phone Care Team Providers Care Citrus Fruit Packer Name Role Phone Herber Hussein MD Primary Care Provider [phone] Encounter Details Date Type Department Care Team (Late st Contact Info) Description 08/25/2018 Orders Only [facility] [address] [place] [address] Tl Lawson NP Chronic kidney disease stage 4 [...] (HCC) documented in this encounter Care Teams Citrus Fruit Packer Relationship Specialty Start Date End Date Herber Hussein MD [address] [place] [address] PCP - General Family Medicine 07/14/18 documented as of this encounter
--- OUTSIDE RECORDS SUMMARY | 2024-10-15 13:19 | XMS_ITS | Encounter Summary ---
Author Organization [facility] Address [address] [place] [address] Phone Care Team Providers Care Chainstitch Sewing Machine Operator Name Role Phone Herber Hussein MD Primary Care Provider [phone] Reason for Visit * Reason Comments Med Refill Encounter Details Date Type Department Care Team (Late st Contact Info) Description 05/06/2020 Refill [facility] [address] [place] [address] Mohsen Mann MD [address] [place] [address] Social History Tobacco Use Types [...] on filedocumented in this encounter Care Teams Chainstitch Sewing Machine Operator Relationship Specialty Start Date End Date Herber Hussein MD [address] [place] [address] PCP - General Family Medicine 07/14/18 documented as of this encounter
--- OUTSIDE RECORDS SUMMARY | 2024-10-15 13:19 | XMS_ITS | Encounter Summary ---
Author Organization [facility] Address [address] [place] [address] Phone Care Team Providers Care Quality Control Assistant Name Role Phone Herber Hussein MD Primary Care Provider [phone] Reason for Visit * Reason Comments Med Refill Encounter Details Date Type Department Care Team (Late st Contact Info) Description 11/23/2021 [facility]ill [email or web address] [address] [place] [address] Mohsen Mann MD [address] [place] [address] Social History Tobacco Use Types [...] on filedocumented in this encounter Care Teams Quality Control Assistant Relationship Specialty Start Date End Date Herber Hussein MD [address] [place] [address] PCP - General Family Medicine 07/14/18 documented as of this encounter
--- OUTSIDE RECORDS SUMMARY | 2024-10-15 13:19 | XMS_ITS | Encounter Summary ---
Author Organization [facility] Address [address] [place] [address] Phone Care Team Providers Care Assignment Manager Name Role Phone Herber Hussein MD Primary Care Provider [phone] Encounter Details Date Type Department Care Team (Late st Contact Info) Description 08/24/2018 Orders Only [facility] [address] [place] [address] Mohsen Mann MD [address] [facility] [address] [place] [address] Chronic kidney disease stage 4 (HCC) Social [...] (HCC) documented in this encounter Care Teams Assignment Manager Relationship Specialty Start Date End Date Herber Hussein MD [address] [place] [address] PCP - General Family Medicine 07/14/18 documented as of this encounter
--- OUTSIDE RECORDS SUMMARY | 2024-10-15 13:19 | XMS_ITS ---
Author Name Vick, Clinic Address [address] [place] [address] Phone [phone] Organization [facility] e, NA DOCUMENT DISCLAIMER Multiple document versions may exist, please be sure you review the latest version. The information in the [facility] Continuity of Care Document represents a summary of certain health and medical information. It may not contain the complete medical history for the patient and should be independently verified. The represented time in the document is Eastern Time. 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 right foot limited to breakdown of skin L97.511 Active July Gastrointestinal hemorrhage, unspecified K92.2 Active July 29, 2023 Acute respiratory failure with hypoxia J96.01 Ac tive June 06, 2023 Acute bronchitis, unspecified J20.9 Active June 06, 2023 Tachycardia, unspecified R00.0 Active May Pruritus, unspecified L29.9 Active Decemb er 2022 Dependence on renal dialysis Z99.2 Active May 03, 2022 End stage renal disease N18.6 Active Febr uary 2022 Sebaceous cyst L72.3 Active January 13 022 Non-pressure chronic ulcer o f other part of left foot with unspecified severity L97.529 Active March 222021 Generalized anxiety disorder F41.1 Active December 31, 2020 Diarrhea, unspecified R19.7 Active November 03, 2020 Unspecified protein-calorie malnutrition E46 Active October 24, 2020 Acute respiratory failure with hypoxia J96.01 Ac tive October 10, 2020 Infection and inflammatory r eaction due to other cardiac and vascular devices, implants and grafts, initial encounter T82.7XXA Active September 26, 2020 Covid-19 U07.1 Active September 26, 2020 Methicillin resistant Staphy lococcus aureus infection, unspecified site A49.02 Active June 17 21 Vitamin D deficiency, unspecified E55.9 Active April 09, 2020 Hypokalemia E87.6 Active April 09 Encounter for fitting and ad justment of extracorporeal dialysis catheter Z49.01 Active January 10, 2020 Coagulation defect, unspecified D68.9 Active January 10, 2020 Shortness of breath R06.02 Active January 10, 2020 Hypotension of hemodialysis I95.3 Active January 10, 2020 Allergy, unspecified, subsequent encounter T78.40XD Active January 10, 2020 Nausea R11.0 Active January 09 0 Cramp and spasm R25.2 Active January 10, 2020 Fever, unspecified R50.9 Active December 202019 Chest pain, unspecified R07.9 Active Deco 2019 Pain, unspecified R52 Active December Palmar fascial fibromatosis [Dupuytren] M72.0 A ctive January 10, 2020 Acute embolism and thrombosis of unspecified vein I82. 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 Active January 10, 2020 Personal history of diseases of the skin and subcutaneous tissue Z87.2 Active January 10, 2020 Other stimulant abuse, uncomplicated F15.10 Acti ve January 10, 2020 Type 2 diabetes mellitus wit h diabetic chronic kidney disease E11.22 Active January 10, 2020 Essential (primary) hypertension I10 Active January 10, 2020 Encounter for screening for respiratory tuberculosis Z11.1 Active January 10, 2020 Encounter for immunization Z23 Active O ctober 2019 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 Acti ve January 10, 2020 Secondary hyperparathyroidism of renal origin N25.81 Active January 10, 2020 Iron deficiency anemia, unspecified D50.9 Activ e January 10, 2020 Anemia in chronic kidney disease D63.1 Active January 10, 2020 End stage renal disease N18.6 Active Octo reuben 2019 ALLERGIES AND ADVERSE REACTIONS Substance Reaction Severity Status cephalexin Skin Rash Active Cephalosporins Skin Rash Mild Active adhesive tape Skin Rash Moderate Active latex Skin Rash Active SOCIAL HISTORY Tobacco Use Status Tobacco Type Unknown if ever consumed tobacco - Caregiver Characteristics No Information Available Characteristics of Home environment No Information Available Gender and Sex Information Gender Identity Sexual Orientation Female Decline to answer MEDICATIONS Prescribed Medications for Dialysis Treatments Medication Instructions Dosage Route Start Date End Date Status Diphenhydramine PRN-may repeat x1 itching 50 mg Intravenous - push September 19, 2024 September 18, 2025 Active Iron Sucrose (Venofer) 1X Week 50 mg Intravenous - push May 28, 2024 May 27, 2025 Active Ondansetron HCl (Zofran) During Dialysis, PRN Nausea 4 mg Intravenous - push April 09, 2024 April 08, 2025 Active Vitamin D (Calcitriol) Oral Every Treatment 1.0 mcg Oral August 29, 2024 August 28, 2025 Active Diphenhydramine PRN-may repeat x1 itching 50 mg Intravenous - push October 12, 2023 October 10, 2024 Discontinued Epoetin Mata (Epogen) During Dialysis, 3X Week 7600 units Intravenous - push September 24, 2024 September 23, 2025 Discontinued Epoetin Mata (Epogen) During Dialysis, 3X Week 6000 units Intravenous - push August 31, 2024 August 30, 2025 Discontinued Epoetin Mata (Epogen) During Dialysis, 3X Week 5800 units Intravenous - push October 01, 2024 September 30, 2025 Discontinued Home Medications Medication Instructions Dosage Route Start Date End Date Stat us acetaminophen 325 mg Take by mouth four times a day 1 tablet ORAL August 02, 2023 Active alprazolam 0.25 mg Take by mouth twice a day as needed 1 tablet ORAL July 30, 2020 Active amlodipine 10 mg Take by mouth once a day 1 tablet ORAL August 24, 2023 Active bismuth subsalicylate 262 mg Take by mouth four times a day as needed 1 tablet ORAL March 23, 2024 Active carvedilol 25 mg Take by mouth twice a day 1 tablet ORAL August 24, 2023 Active Celexa 20 mg Take by mouth once a day 1 tablet ORAL May 19, 2024 Active diphenoxylate-at ropine 2.5-0.025 mg Take by mouth four times a day as needed 1 tablet ORAL January 20, 2024 Active Eliquis 2.5 mg Take by mouth twice a day 1 tablet ORAL September 21, 2023 Active hydralazine 25 mg Take by mouth three times a day 1 tablet ORAL May 06, 2021 Active melatonin 10 mg Take by mouth at bedtime as needed 1 capsule ORAL November 22, 2022 Active ondansetron HCl 4 mg Take by mouth every eight hours as needed 1 tablet ORAL August 02, 2023 Active Ozempic 1 mg/dose (2 mg/1.5 mL) Inject subcutaneously once a week 1 mg subcutaneously July 19, 2022 Active promethazine 25 mg Take by mouth every four hours as needed 1 tablet ORAL December 21, 2023 Active Protonix 40 mg Take by mouth twice a day 1 tablet ORAL January 20, 2024 Active Reglan 5 mg Take by mouth four times a day 1 tablet ORAL October 04, 2024 Active RenaPlex-D 800 mcg-12.5 mg-2,000 unit Take by mouth once a day as directed 1 tablet ORAL May 21, 2019 Active ropinirole 0.25 mg Take by mouth at bedtime 1 tablet ORAL March 19, 2020 Active Sevelamer Carbonate Tablet 800 mg Take By Mouth Three times a day With Meals 2 Tablet By Mouth March 29, 2024 March 26, 2025 Active sodium bicarbonate 650 mg Take by mouth three times a day as needed 1 tablet ORAL November 29, 2022 Active Ventolin HFA 90 mcg/actuation Inhale as directed every six hours as needed 2 puff INHALATION September 04, 2024 Active VITAL SIGNS Post-Treatment Vital Signs Vital Sign Value Date / Time Blood Pressure-sitting 141/66 mmHg October 12, 2024 06:29 AM Blood Pressure-standing 131/62 mmHg October 12, 2024 06:29 AM Heart Rate 99 beats per minute October 12 06:29 AM Respiratory Rate 18 breaths per minute October 12, 2024 06:29 AM Temperature 97.5 deg. F October 12, 2024 06 :29 AM Weight Vital Sign Value Date / Time Estimated Dry Weight 67.5 kg October 08 11:59 PM Pre-Dialysis 68.60 kg October 12, 2024 06 :29 AM Post-Dialysis 68.30 kg October 12, 2024 06 :29 AM Other Other Value Date / Time Height 176 cm May 14 12:00 AM Body Mass Index 21.79 kg/m2 October 11, 2024 12 :00 PM HEALTH CONCERNS Tuberculosis Testing TST Date Administered TST Date Read TST Result 12/01/2020 12/03/2020 No information a vailable LAB RESULTS Hematology Result Type Result Value Relevant Referen ce Range Interpretation Date Platelets 186 1000/mcL 130 - 400 1000/mcL - uary 2024 UIBC/TIBC 184 mcg/dL 155 - 355 mcg/dL - April 25, 2024 TIBC (Calc) 260 mcg/dL 185 - 515 mcg/dL - 2024 Transferrin Sat. (Calc) 29 % 20 - 55 % - April 25 Neutrophils 63.6 % 40.0 - 75.0 % - April WBC (No Diff) 5.95 1000/mcL 4.80 - 10.80 1000/mcL - April 25, 2024 Ferritin 1045 ng/mL 10 - 291 ng/mL High May 23, 2024 Folate, Serum 21.5 ng/mL No Reference Ran ge Provided - May 23, 2024 Neutrophils 73.3 % 40.0 - 75.0 % - May 23, 2024 WBC (No Diff) 6.97 1000/mcL 4.80 - 10.80 1000/mcL - May 23, 2024 Platelets 136 1000/mcL 130 - 400 1000/mcL - Marcin h 2024 TIBC (Calc) 261 mcg/dL 185 - 515 mcg/dL - May UIBC/TIBC 154 mcg/dL 155 - 355 mcg/dL Low May Transferrin Sat. (Calc) 41 % 20 - 55 % - May 23, 2024 Transferrin Sat. (Calc) See comment 20 - 55 % - June 20, 2024 UIBC/TIBC < 25 mcg/dL 155 - 355 mcg/dL Low June TIBC (Calc) See comment 185 - 515 mcg/dL - June 20, 2024 Neutrophils 69.9 % 40.0 - 75.0 % - June 20, 2024 Platelets 207 1000/mcL 130 - 400 1000/mcL - Apri l 2024 WBC (No Diff) 6.22 1000/mcL 4.80 - 10.80 1000/mcL - June 20, 2024 Hemoglobin x 3 32.7 % 36.0 - 48.0 % Low June 212024 Basophils 1.1 % 0.0 - 1.5 % - July 25, 2024 Eosinophil 3.9 % 0.0 - 7.0 % - July 25, 2024 Monocytes 5.2 % 3.0 - 10.0 % - July 25, 2024 Lymphocytes 18.3 % 19.0 - 48.0 % Low July 25 Neutrophils 69.3 % 40.0 - 75.0 % - July 25 25 Hemoglobin x 3 33.6 % 36.0 - 48.0 % Low July 25, 2024 RDW 15.0 % 11.5 - 14.5 % High July 25 MCHC 34.1 g/dL 30.0 - 36.0 g/dL - July 25, 2024 MCH 34.2 pg 27.0 - 31.0 pg High July 25 25 WBC (No Diff) 6.70 1000/mcL 4.80 - 10.80 1000/mcL - July 25, 2024 KARON 2.1 % 0.0 - 4.0 % - July 25, 2024 Platelets 200 1000/mcL 130 - 400 1000/mcL - July 25, 2024 TIBC (Calc) 240 mcg/dL 185 - 515 mcg/dL - July 25, 2024 UIBC/TIBC 131 mcg/dL 155 - 355 mcg/dL Low July 25, 2024 Transferrin Sat. (Calc) 45 % 20 - 55 % - July 25, 2024 Iron 109 mcg/dL 30 - 160 mcg/dL - July 25, 025 Hemoglobin x 3 29.1 % 36.0 - 48.0 % Low August 01, 2024 Hemoglobin x 3 25.8 % 36.0 - 48.0 % Low August 08, 2024 Ferritin 1808 ng/mL 10 - 291 ng/mL High August 15 25 Hemoglobin x 3 25.5 % 36.0 - 48.0 % Low August 15, 2024 Hemoglobin x 3 22.5 % 36.0 - 48.0 % Low August 17, 2024 UIBC/TIBC 125 mcg/dL 155 - 355 mcg/dL Low August 24, 2024 Iron 106 mcg/dL 30 - 160 mcg/dL - August 24, 2024 Transferrin Sat. (Calc) 46 % 20 - 55 % - August 24, 2024 TIBC (Calc) 231 mcg/dL 185 - 515 mcg/dL - August Hemoglobin x 3 21.9 % 36.0 - 48.0 % Low August Platelets 144 1000/mcL 130 - 400 1000/mcL - August 24, 2024 Ferritin 1622 ng/mL 10 - 291 ng/mL High August 24, 025 KARON 3.9 % 0.0 - 4.0 % - August 24, 2024 WBC (No Diff) 7.14 1000/mcL 4.80 - 10.80 1000/mcL - August 24, 2024 Eosinophil 3.1 % 0.0 - 7.0 % - August 24, 2024 Basophils 0.6 % 0.0 - 1.5 % - August 24, 2024 MCHC 33.7 g/dL 30.0 - 36.0 g/dL - August 24, 2024 RDW 17.0 % 11.5 - 14.5 % High August 24 MCH 34.7 pg 27.0 - 31.0 pg High August 24, 025 Monocytes 3.5 % 3.0 - 10.0 % - August 24 Neutrophils 35.2 % 40.0 - 75.0 % Low August 24 025 Lymphocytes 53.7 % 19.0 - 48.0 % High August 24 Hemoglobin x 3 23.7 % 36.0 - 48.0 % Low August Hemoglobin x 3 27.9 % 36.0 - 48.0 % Low August Hemoglobin x 3 29.4 % 36.0 - 48.0 % Low August Basophils 0.7 % 0.0 - 1.5 % - September 19, 2024 Eosinophil 4.8 % 0.0 - 7.0 % - September 19, 2024 WBC (No Diff) 7.02 1000/mcL 4.80 - 10.80 1000/mcL - September 19, 2024 KARON 2.7 % 0.0 - 4.0 % - September 19, 2024 TIBC (Calc) 223 mcg/dL 185 - 515 mcg/dL - September Neutrophils 68.2 % 40.0 - 75.0 % - September 19 025 Monocytes 4.2 % 3.0 - 10.0 % - September 19 Lymphocytes 19.5 % 19.0 - 48.0 % - September 19 HCT 28.0 % 37.0 - 47.0 % Low September 19 25 Transferrin Sat. (Calc) 23 % 20 - 55 % - September 19, 2024 RBC 2.69 mill/mcL 4.20 - 5.40 mill/mcL Low September 19, 2024 Platelets 170 1000/mcL 130 - 400 1000/mcL - September 19, 2024 Hemoglobin x 3 28.5 % 36.0 - 48.0 % Low September MCHC 34.1 g/dL 30.0 - 36.0 g/dL - September 19, 2024 MCH 35.4 pg 27.0 - 31.0 pg High September 19 HGB 9.5 g/dL 12.0 - 16.0 g/dL Low September 19, 2024 RDW 18.4 % 11.5 - 14.5 % High September 19 Iron 52 mcg/dL 30 - 160 mcg/dL - September 19, 2024 UIBC/TIBC 171 mcg/dL 155 - 355 mcg/dL - September 19, 2024 Hemoglobin x 3 34.5 % 36.0 - 48.0 % Low September HGB 11.5 g/dL 12.0 - 16.0 g/dL Low September 26, 2024 Hemoglobin x 3 33.3 % 36.0 - 48.0 % Low September HGB 11.1 g/dL 12.0 - 16.0 g/dL Low October 05, 2024 Hemoglobin x 3 32.4 % 36.0 - 48.0 % Low September HGB 10.8 g/dL 12.0 - 16.0 g/dL Low October 10, 2024 Metabolic/Renal Result Type Result Value Relevant Reference Range Interpre tation Date Bicarbonate 22 mEq/L 22 - 29 mEq/L - July 25 Chloride 101 mEq/L 96 - 108 mEq/L - July 25 BUN, Post 13 mg/dL 6 - 19 mg/dL - July 25, 2024 URR, Calc 72 % 65 - 80 % - July 25, 2024 Potassium 3.9 mEq/L 3.5 - 5.1 mEq/L - July 25, 2 025 Sodium 139 mEq/L 136 - 145 mEq/L - July 25, 2 025 BUN 47 mg/dL 6 - 19 mg/dL High July 25, 2024 BUN/Creat Ratio 7.1 10.0 - 20.0 Low July 25, 2024 Creatinine, Serum 6.60 mg/dL 0.60 - 1.30 mg/dL High July 25, 2024 BUN, Post 8 mg/dL 6 - 19 mg/dL - August 06, 2024 URR, Calc 73 % 65 - 80 % - August 06, 2024 BUN 30 mg/dL 6 - 19 mg/dL High August 06, 2024 BUN, Post 8 mg/dL 6 - 19 mg/dL - August 24 URR, Calc 79 % 65 - 80 % - August 24, 2024 BUN 38 mg/dL 6 - 19 mg/dL High August 24 BUN/Creat Ratio 7.9 10.0 - 20.0 Low August 24, 2024 Creatinine, Serum 4.82 mg/dL 0.60 - 1.30 mg/dL High August 24, 2024 Potassium 3.7 mEq/L 3.5 - 5.1 mEq/L - August 24, 2024 Sodium 139 mEq/L 136 - 145 mEq/L - August 24, 2024 Bicarbonate 26 mEq/L 22 - 29 mEq/L - August 24, 025 Chloride 102 mEq/L 96 - 108 mEq/L - August 24, 2 025 Chloride 103 mEq/L 96 - 108 mEq/L - September 19, 2 025 Bicarbonate 23 mEq/L 22 - 29 mEq/L - September 19, 2 025 Creatinine, Serum 4.97 mg/dL 0.60 - 1.30 mg/dL High September 19, 2024 Sodium 138 mEq/L 136 - 145 mEq/L - September 19, 2024 Potassium 3.8 mEq/L 3.5 - 5.1 mEq/L - September 19, 2024 URR, Calc 80 % 65 - 80 % - September 26, 2024 BUN, Post 12 mg/dL 6 - 19 mg/dL - September 26 BUN 59 mg/dL 6 - 19 mg/dL High September 26 HD Adequacy Result Type Result Value Relevant Referen ce Range Interpretation Date Krt/V 0.00 No Reference Ran ge Provided - April 25, 2024 Krt/V 0.00 No Reference Ran ge Provided - May 30, 2024 Krt/V 0.00 No Reference Ran ge Provided - June 20, 2024 Krt/V 0.00 No Reference Ran ge Provided - July 11, 2024 wstdKt/V without residual 2.3 No Reference Range Provided - July 25, 2024 wstdKt/V, residual 0.0 No Reference Range Provided - July 25, 2024 spKt/V Gotch 1.32 No Reference Ran ge Provided - July 25, 2024 spKt/V (Daugirdas II) 1.33 No Reference Range Provided - July 25, 2024 Krt/V 0.00 No Reference Ran ge Provided - July 25, 2024 eKt/V ([place]) 1.10 No Reference Range Provided - July 25, 2024 wstdKt/V 2.3 No Reference Ran ge Provided - July 25, 2024 spKt/V (Daugirdas II) 1.43 No Reference Range Provided - August 06, 2024 wstdKt/V, residual 0.0 No Reference Range Provided - August 06, 2024 wstdKt/V 2.3 No Reference Ran ge Provided - August 06, 2024 wstdKt/V without residual 2.3 No Reference Range Provided - August 06, 2024 Krt/V 0.00 No Reference Ran ge Provided - August 06, 2024 eKt/V ([place]) 1.19 No Reference Range Provided - August 06, 2024 spKt/V Got 1.42 No Reference Ran ge Provided - August 06, 2024 wstdKt/V, residual 0.0 No Reference Range Provided - August 24, 2024 spKt/V (Daugirdas II) 1.67 No Reference Range Provided - August 24, 2024 Krt/V 0.00 No Reference Ran ge Provided - August 24, 2024 wstdKt/V without residual 2.5 No Reference Range Provided - August 24, 2024 eKt/V ([place]) 1.38 No Reference Range Provided - August 24, 2024 wstdKt/V 2.5 No Reference Ran ge Provided - August 24, 2024 spKt/V Got 1.68 No Reference Ran ge Provided - August 24, 2024 spKt/V (Daugirdas II) 1.64 No Reference Range Provided - September 26, 2024 wstdKt/V 1.6 No Reference Ran ge Provided - September 26, 2024 spKt/V Gotch 1.61 No Reference Ran ge Provided - September 26, 2024 eKt/V ([place]) 1.36 No Reference Range Provided - September 26, 2024 wstdKt/V, residual 0.0 No Reference Range Provided - September 26, 2024 Krt/V 0.00 No Reference Ran ge Provided - September 26, 2024 wstdKt/V without residual 1.6 No Reference Range Provided - September 26, 2024 Bone/Mineral Result Type Result Value Relevant Referen ce Range Interpretation Date Magnesium 2.1 mg/dL 1.6 - 2.6 mg/dL - November 23, 2023 Magnesium 1.8 mg/dL 1.6 - 2.6 mg/dL - February 22, 2024 Vitamin D 25 Hydroxy 32.4 ng/mL 30.0 - 100.0 ng/mL - May 23, 2024 PTH-Intact, Plasma 534 pg/mL 16 - 80 pg/mL High May Magnesium 2.0 mg/dL 1.6 - 2.6 mg/dL - May 23, 2024 Calcium, Total 9.7 mg/dL 8.4 - 10.2 mg/dL - July 25, 2024 Ca x P Product 57 0 - 54 High July 25 25 Phosphorus 5.9 mg/dL 2.6 - 4.5 mg/dL High July 25, 025 Corrected Ca x P Product 55 0 - 54 High July 25, 2024 Magnesium 1.8 mg/dL 1.6 - 2.6 mg/dL - August 24, 2024 Calcium, Total 8.3 mg/dL 8.4 - 10.2 mg/dL Low August 24, 2024 Ca x P Product 38 0 - 54 - August 24, 025 Phosphorus 4.6 mg/dL 2.6 - 4.5 mg/dL High August 24, 2024 Alkaline Phosphatase 73 U/L 35 - 104 U/L - 2024 Corrected Ca x P Product 39 0 - 54 - August 24, 2024 PTH-Intact, Plasma 446 pg/mL 16 - 80 pg/mL High Aug Calcium, Total 8.9 mg/dL 8.4 - 10.2 mg/dL - September 19, 2024 Corrected Ca x P Product 48 0 - 54 - September 19, 2024 Phosphorus 5.4 mg/dL 2.6 - 4.5 mg/dL High September 19, 2024 Ca x P Product 48 0 - 54 - September 19, 2 025 Liver/Nutrition Result Type Result Value Relevant Reference Range Interpre tat eNPCR 0.69 No Reference Range Provided - July 25, 2024 A/G Ratio 1.7 1.0 - 2.0 - July 25, 2024 Globulin (Calc) 2.6 g/dL 2.0 - 4.0 g/dL - July Albumin (BCG) 4.5 g/dL 3.5 - 5.2 g/dL - July 25, 2024 Total Protein 7.1 g/dL 6.0 - 8.5 g/dL - July 25, 2024 eNPCR 0.46 No Reference Range Provided - August 06, 2024 Total Protein 6.4 g/dL 6.0 - 8.5 g/dL - August Albumin (BCG) 3.7 g/dL 3.5 - 5.2 g/dL - August Globulin (Calc) 2.7 g/dL 2.0 - 4.0 g/dL - August 24, 2024 A/G Ratio 1.4 1.0 - 2.0 - August 24, 2024 eNPCR 0.70 No Reference Range Provided - August 24, 2024 Globulin (Calc) 2.5 g/dL 2.0 - 4.0 g/dL - September 19, 2024 A/G Ratio 1.6 1.0 - 2.0 - September 19, 2024 Total Protein 6.6 g/dL 6.0 - 8.5 g/dL - September Albumin (BCG) 4.1 g/dL 3.5 - 5.2 g/dL - September eNPCR 0.91 No Reference Range Provided - September 26, 2024 Immunochemistry Result Type Result Value Relevant Referen ce Range Interpretation Date HCV s/co ratio 0.06 0.00 - 0.79 - November 23, 2023 Therapeutic Drugs Result Type Result Value Relevant Referen ce Range Interpretation Date Vancomycin, Trough 17.7 mcg/mL 10.0 - 20.0 mcg/mL - March 12, 2024 Trace Elements Result Type Result Value Relevant Reference Range Interpre tation Date Aluminum < 5 mcg/L 0 - 10 mcg/L - November Aluminum < 5 mcg/L 0 - 10 mcg/L - May 23 Infectious Diseases Result Type Result Value Relevant Referen ce Range Interpretation Date HCV Ab (anti-HCV) Nonreactive No Reference R bret Provided - November 23, 2023 Hep B Surface Ab (anti-HBs) > 1000 mIU/mL No Reference Range Provided - May 23, 2024 Hep B Surface Ag (HBsAg) Negative No Reference Range Provided - May 23, 2024 Microbiology-Culture, Blood Result Type Result Value Relevant Referen ce Range Interpretation Date Culture Result (Blood Culture) No Aerobic or Anaerobic Growth after 5 Days of Incubation. No Reference Range Provided - July 27, 2024 Microbiology-Culture, Blood 2nd Set Result Type Result Value Relevant Referen ce Range Interpretation Date Culture Result (Blood Culture - 2nd Set) No Aerobic or Anaerobic Growth after 5 Days of Incubation. No Reference Range Provided - July 27, 2024 DIALYSIS PRESCRIPTION Conventional Hemodialysis Data Element Value Order Date/Time October 08, 2024 Frequency 3X Week Treatment Days MonWedFri Dialyzer [id number] Optiflux Treatment Time (Total Minutes) 165 min Blood Flow Rate (mL/min) 450 mL/min Dialysate Flow Rate Autoflow 2.0 Estimated Dry Weight 67.5 kg Dialysate Concentrate 3.0 K, 2.5 Ca, 1.0 Mg, 100 Dextrose (G3251) Sodium (mEq/L) 137 mEq/L Bicarb Machine Setting (mEq/L) 40 mEq/L Dialysis Access Hemodialysis-AV Fist vern-Transposed, Right Thigh, Femoral Artery to Saphenous Vein Access Placed on August 19, 2020 Arterial Needle Size 15g1 Venous Needle Size 15g1 IMMUNIZATIONS Vaccine Date Dose Route Status Flu Vaccine - Flucelvax Trivalent January 04, 2024 0.5 mL Intramuscular Completed Flu Vaccine - Flublok Quadrivalent December 29, 2022 0.5 mL Intramuscular Completed PREVNAR June 21, 2022 0.5 mL Intramuscular Complet ed PNEUMOVAX July 24, 2019 0.5 mL Intramuscular Complet ed PREVNAR May 21, 2019 0.5 mL Intramuscular Complet ed TRANSPLANT WAITLIST STATUS No Information on Transplant Waitlist Status ADVANCE DIRECTIVES Directive Description Ordered By Effective Date Resuscitation status Full Code Bee Chavarria Apr DIALYSIS TREATMENTS Conventional Hemodialysis Date Pre-Treatment Vitals Post-Treatment Nathaly ls Duration (hr) BFR (mL/min) Dialysate Dialyzer Dialysis Access Meds Admin October 08, 2024 Weight 67.10 kg Weight 67.40 kg 02:48:00 450 3.0 K, 2.5 Ca, 1.0 Mg, 100 Dextrose (G3251) 180nre Optifl ux Blood Pressure-sitting 124/64 mmHg Blood Pressure-sit ting 155/64 mmHg Blood Pressure-standing 125/85 mmHg Blood Pressure-st anding 123/54 mmHg Heart Rate 104 beats per minute Heart Rate 93 beats per minute Respiratory Rate 18 breaths per minute Respiratory Rate 18 breaths per minute Temperature 97.7 deg. F Temperature 97.6 deg. F October 10, 2024 Weight 67.70 kg Weight 67.60 kg 02:46:00 450 3.0 K, 2.5 Ca, 1.0 Mg, 100 Dextrose (G3251) 180nre Optiflux Hemodialysis-AV Fistula-Transposed, Right Thigh, Femoral Artery to Saphenous Vein Access Placed on August 19, 2020 Diphenhydramine; 50mg,Intravenous - push Epoetin Mata (Epogen); 5800units,Intravenous - push Vitamin D (Calcitriol) Oral; 1.0mcg,Oral Blood Pressure-sitting 141/53 mmHg Blood Pressure-sit ting 142/78 mmHg Blood Pressure-standing 114/67 mmHg Blood Pressure-st anding 133/69 mmHg Heart Rate 116 beats per minute Heart Rate 98 beats per minute Respiratory Rate 18 breaths per minute Respiratory Rate 16 breaths per minute Temperature 97.7 deg. F Temperature 96.1 deg. F October 12, 2024 Weight 68.60 kg Weight 68.30 kg 02:49:00 450 3.0 K, 2.5 Ca, 1.0 Mg, 100 Dextrose (G3251) 180nre Optiflux Hemodialysis-AV Fistula-Transposed, Right Thigh, Femoral Artery to Saphenous Vein Access Placed on August 19, 2020 Epoetin Mata (Epogen); 5800units,Intravenous - push Ondansetron HCl (Zofran); 4mg,Intravenous - push Vitamin D (Calcitriol) Oral; 1.0mcg,Oral Blood Pressure-sitting 165/73 mmHg Blood Pressure-sit ting 141/66 mmHg Blood Pressure-standing 152/69 mmHg Blood Pressure-st anding 131/62 mmHg Heart Rate 111 beats per minute Heart Rate 99 beats per minute Respiratory Rate 16 breaths per minute Respiratory Rate 18 breaths per minute Temperature 97.5 deg. F Temperature 97.5 deg. F
--- OUTSIDE RECORDS SUMMARY | 2024-10-15 13:19 | XMS_ITS | Encounter Summary ---
Author Organization [facility] Address [address] [place] [address] Phone Care Team Providers Care Band Tacker Name Role Phone Herber Hussein MD Primary Care Provider [phone] Reason for Visit * Reason Comments Med Refill Encounter Details Date Type Department Care Team (Late st Contact Info) Description 11/20/2020 Refill [facility] [address] [place] [address] Mohsen Mann MD [address] [place] [address] Social History Tobacco Use Types [...] on file Sexual Orientation Not on file COVID-19 Exposure Response Date Recorded In the last month, have you been in contact with someone who was confirmed or suspected to have Coronavirus / COVID-19? No / Unsure 11/13/2020 9:43 AM EDT documented as of this encounter Plan of Treatment Not on file documented as of this encounter Visit Diagnoses Not on filedocumented in this encounter Care Teams Band Tacker Relationship Specialty Start Date End Date Herber Hussein MD [address] [place] [address] PCP - General Family Medicine 07/14/18 documented as of this encounter
--- OUTSIDE RECORDS SUMMARY | 2024-10-15 13:20 | XMS_ITS | Encounter Summary ---
Author Organization [place] [facility] Address [address] [facility] [address] [place] [address] Phone Care Team Providers Care Drawbridge Tender Name Role Phone Herber Hussein MD Primary Care Provider [phone] Encounter Details Date Type Department Care Team (Late st Contact Info) Description 12/11/2018 Orders Only [place] [facility] [employer] [address] [place] [address] Tl Lawson, [place] Chronic kidney disease stage 4 (HCC) Social [...] Progress Notes * Mohsen Mann MD - 12/11/2018 11:59 PM CDT Will review labs at her appointment. * Mohsen Mann MD - 12/11/2018 11:59 PM CDT Kidney function slowly getting worse. Will proceed with starting dialysis. documented in this encounter Plan of Treatment Not on file documented as of this encounter Procedures Procedure Name Priority Date/Time Associated Diagnosis Comments HEPATITIS C ANTIBODY Routine 04/30/2019 10:54 AM HEAD GAUGE UNIT OPERATOR HEPATITIS A ANTIBODY, IGM Routine 04/30/2019 10:54 AM HEAD GAUGE UNIT OPERATOR HEPATITIS B CORE ANTIBODY, IGM Routine 04/30/2019 10:54 AM HEAD GAUGE UNIT OPERATOR HEPATITIS B SURFACE ANTIGEN Routine 04/30/2019 10:54 AM HEAD GAUGE UNIT OPERATOR RENAL FUNCTION PANEL Routine 04/30/2019 10:54 AM HEAD GAUGE UNIT OPERATOR PROTEIN / CREATININE RATIO, URINE Routine 04/11/2019 1:09 PM HEAD GAUGE UNIT OPERATOR CBC AND DIFFERENTIAL Routine 04/11/2019 1:09 PM HEAD GAUGE UNIT OPERATOR RENAL FUNCTION PANEL Routine 04/11/2019 1:09 PM HEAD GAUGE UNIT OPERATOR PROTEIN / CREATININE RATIO, URINE Routine 12/06/2018 8:34 AM CDT Chronic kidney disease stage 4 (HCC) VITAMIN D 25 HYDROXY Routine 12/06/2018 8:34 AM CDT CBC Routine 12/06/2018 8:34 AM CDT Chronic kidney disease stage 4 (HCC) PTH, INTACT Routine 12/06/2018 8:34 AM CDT RENAL FUNCTION PANEL Routine 12/06/2018 8:34 AM CDT Chronic kidney disease stage 4 (HCC) documented in this encounter Results * (ABNORMAL) Renal Function Panel (04/30/2019 10:54 AM HEAD GAUGE UNIT OPERATOR) Glucose 268(H) 65 - 99 mg/dL [facility] Comment: Fasting reference interval For someone without known diabetes, a glucose value >125 mg/dL indicates that they may have diabetes and this should be confirmed with a follow-up test. BUN 44(H) 7 - 25 mg/dL [facility] Creatinine 3.70(H) 0.50 - 1.10 mg/dL [facility] eGFR Non- 14(L) > OR = 60 mL/min/1.7 3m2 [facility] eGFR 16(L) > OR = 60 mL/min/1.7 3m2 [facility] BUN/Creatinine Ratio 12 6 - 22 (calc) [facility] Sodium 136 135 - 146 mmol/L [facility] Potassium 4.3 3.5 - 5.3 mmol/L [facility] Chloride 104 98 - 110 mmol/L [facility] Bicarbonate (CO2) 19(L) 20 - 32 mmol/L [facility] Calcium 8.7 8.6 - 10.2 mg/dL [facility] Phosphorus 3.7 2.5 - 4.5 mg/dL [facility] Albumin 4.1 3.6 - 5.1 g/dL [facility] 04/30/2019 10:5 4 AM HEAD GAUGE UNIT OPERATOR 04/30/2019 10:55 AM HEAD GAUGE UNIT OPERATOR Narrative Resulting Agency Comment Performing Organization Information: Site ID: [place] Name: [facility] Address: [address] [address] Director: Jadiel Winslow D.O., MPH Mohsen Mann MD LAB BLOOD ORDERABLES Fi nal Result [facility] * Hepatitis C antibody (04/30/2019 10:54 AM HEAD GAUGE UNIT OPERATOR) Hepatitis C Antibody NON-REACTI VE NON-REACT JUICE [facility] Signal/Cutoff 0.08 <1.00 [facility] Comment: HCV antibody was non-reactive. There is no laboratory evidence of HCV infection. In most cases, no further action is required. However, if recent HCV exposure is suspected, a test for HCV RNA (test code 64734) is suggested. For additional information please refer to http://education.REVShare/faq/JYS70f3 (This link is being provided for informational/ educational purposes only.) 04/30/2019 10:5 4 AM HEAD GAUGE UNIT OPERATOR 04/30/2019 10:55 AM HEAD GAUGE UNIT OPERATOR Narrative Resulting Agency Comment Performing Organization Information: Site ID: [place] Name: [facility] Address: [address] [place] [phone] Director: Jadiel Winslow D.O., MPH Mohsen Mann MD LAB BLOOD ORDERABLES Fi nal Result Performing Organization Address [facility] de Phone Number [facility] * Hepatitis B core antibody, IgM (04/30/2019 10:54 AM HEAD GAUGE UNIT OPERATOR) Hep B Core IgM NON-REACTI VE NON-REACTI VE [facility] 04/30/2019 10:5 4 AM HEAD GAUGE UNIT OPERATOR 04/30/2019 10:55 AM HEAD GAUGE UNIT OPERATOR Narrative Resulting Agency Comment Performing Organization Information: Site ID: [place] Name: [facility] Address: [address] [place] [phone] Director: Jadiel Winslow D.O., MPH Mohsen Mann MD LAB BLOOD ORDERABLES Fi nal Result Performing Organization Address [facility] Phone Number [facility] * Hepatitis B Surface Antigen (04/30/2019 10:54 AM HEAD GAUGE UNIT OPERATOR) Hep B Surface Antigen NON-REACTIVE NON-REACT JUICE [facility] Confirmation CANCELED [facility] Comment:Result canceled by kavon lacy. 04/30/2019 10:5 4 AM HEAD GAUGE UNIT OPERATOR 04/30/2019 10:55 AM HEAD GAUGE UNIT OPERATOR Narrative Resulting Agency Comment Performing Organization Information: Site ID: [place] Name: [facility] Address: [address] [place] [phone] Director: Jadiel Winslow D.O., MPH Mhosen Mann MD LAB BLOOD ORDERABLES Fi nal Result Performing Organization Address [facility] de Phone Number [facility] * Hepatitis A antibody, IgM (04/30/2019 10:54 AM HEAD GAUGE UNIT OPERATOR) Hep A IgM NON-REACTI VE NON-REACTI VE [facility] Comment: For additional information, please refer to http://education.[employer]/faq/GVD603 (This link is being provided for informational/ educational purposes only.) 04/30/2019 10:5 4 AM HEAD GAUGE UNIT OPERATOR 04/30/2019 10:55 AM HEAD GAUGE UNIT OPERATOR Narrative Resulting Agency Comment Performing Organization Information: Site ID: [place] Name: [facility] Address: [address] [place] [phone] Director: Jadiel Winslow D.O. MPH Mohsen Mann MD LAB BLOOD ORDERABLES Fi nal Result Performing Organization Address [facility] de Phone Number [facility] * (ABNORMAL) Protein, Total, Random Urine w/Creatinine (Protein/Creat Ratio) (04/11/2019 1:09 PM HEAD GAUGE UNIT OPERATOR) Creatinine, Ur 58 20 - 275 mg/dL [facility] Urine Protein/Creati nine Ratio 3,397(H) 21 - 161 mg/g creat [facility] Protein/Creati nine Ratio, Urine 3.397(H) 0.021 - 0.161 mg/mg creat [facility] Protein Urine Random 197(H) 5 - 24 mg/dL [facility] 04/11/2019 1:09 PM HEAD GAUGE UNIT OPERATOR 04/11/2019 1:10 PM HEAD GAUGE UNIT OPERATOR Narrative Resulting Agency Comment Performing Organization Information: Site ID: [place] Name: [facility] Address: [address] [place] [phone] Director: Jadiel Winslow D.O. MPH Yuliana Maradiaga NP LAB URINE ORDERABLES Final Resul t Performing Organization Address [facility] de Phone Number [facility] * (ABNORMAL) CBC and Differential (04/11/2019 1:09 PM HEAD GAUGE UNIT OPERATOR) WBC 9.3 3.8 - 10.8 Thousand/ uL [facility] RBC 3.19(L) 3.80 - 5.10 Million/u L [facility] Hemoglobin 10.1(L) 11.7 - 15.5 g/dL [facility] Hematocrit 28.9(L) 35.0 - 45.0 % [facility] MCV 90.6 80.0 - 100.0 fL [facility] MCH 31.7 27.0 - 33.0 pg [facility] MCHC 34.9 32.0 - 36.0 g/dL [facility] RDW 12.8 11.0 - 15.0 % [facility] Platelets 242 140 - 400 Thousand/ uL [facility] MPV 11.0 7.5 - 12.5 fL [facility] Neutrophils Absolute 5,487 1,500 - 7,800 cells/uL [facility] Band Neutrophils Absolute, Manual Count CANCELED 0 - 750 cells/uL [facility] Comment:Result canceled by t he ancillary. Metamyelocytes Absolute CANCELED 0 cells/uL [facility] Comment:Result canceled by t he ancillary. Absolute Myelocytes CANCELED 0 cells/uL [facility] Comment:Result canceled by t he ancillary. Absolute Promyelocytes CANCELED 0 cells/uL [facility] Comment:Result canceled by t he ancillary. Lymphocytes Absolute 3,004 850 - 3,900 cells/uL [facility] Monocytes Absolute 409 200 - 950 cells/uL [facility] Eosinophils Absolute 335 15 - 500 cells/uL [facility] Basophils Absolute 65 0 - 200 cells/uL [facility] Blasts Absolute CANCELED 0 cells/uL [facility] Comment:Result canceled by t he ancillary. NRBC Absolute CANCELED 0 cells/uL [facility] Comment:Result canceled by t he ancillary. Neutrophils Relative 59 % [facility] Bands Absolute CANCELED % [facility] Comment:Result canceled by t he ancillary. Metamyelocytes Percent CANCELED % [facility] Comment:Result canceled by t he ancillary. Myelocytes Relative CANCELED % [facility] Comment:Result canceled by t he ancillary. Promyelocytes Relative CANCELED % [facility] Comment:Result canceled by t he ancillary. Lymphocytes 32.3 % [facility] Variant lymphocytes/100 WBC (Bld) CANCELED 0 - 10 % [facility] Comment:Result canceled by t he ancillary. Monocytes 4.4 % [facility] Eosinophils 3.6 % [facility] Basophils Relative 0.7 % [facility] Blasts CANCELED % [facility] Comment:Result canceled by t he ancillary. nRBC CANCELED 0 /100 WBC [facility] Comment:Result canceled by t he ancillary. Comment(s) CANCELED [facility] Comment:Result canceled by t he ancillary. 04/11/2019 1:09 PM HEAD GAUGE UNIT OPERATOR 04/11/2019 1:10 PM HEAD GAUGE UNIT OPERATOR Narrative Resulting Agency Comment Performing Organization Information: Site ID: [place] Name: [facility] Address: [address] [place] [address] Director: Jadiel Winslow D.O., MPH Yuliana Maradiaga TELEVISION OPERATOR LAB BLOOD ORDERABLES Final Resul t Performing Organization Address City/[facility]/ZIP Co de Phone Number [facility] * (ABNORMAL) Renal Function Panel (04/11/2019 1:09 PM HEAD GAUGE UNIT OPERATOR) Glucose 228(H) 65 - 99 mg/dL [facility] Comment: Fasting reference interval For someone without known diabetes, a glucose value >125 mg/dL indicates that they may have diabetes and this should be confirmed with a follow-up test. BUN 46(H) 7 - 25 mg/dL [facility] Creatinine 3.55(H) 0.50 - 1.10 mg/dL [facility] eGFR Non- 15(L) > OR = 60 mL/min/1.7 3m2 [facility] eGFR 17(L) > OR = 60 mL/min/1.7 3m2 [facility] BUN/Creatinine Ratio 13 6 - 22 (calc) [facility] Sodium 142 135 - 146 mmol/L [facility] Potassium 4.1 3.5 - 5.3 mmol/L [facility] Chloride 105 98 - 110 mmol/L [facility] Bicarbonate (CO2) 28 20 - 32 mmol/L [facility] Calcium 9.1 8.6 - 10.2 mg/dL [facility] Phosphorus 4.4 2.5 - 4.5 mg/dL [facility] Albumin 4.4 3.6 - 5.1 g/dL [facility] 04/11/2019 1:09 PM HEAD GAUGE UNIT OPERATOR 04/11/2019 1:10 PM HEAD GAUGE UNIT OPERATOR Narrative Resulting Agency Comment Performing Organization Information: Site ID: [place] Name: [facility] Address: [facility] [place] [address] Director: Jadiel Winslow D.O., MPH us Yuliana Maradiaga NP LAB BLOOD ORDERABLES Final Resul t Performing Organization Address City/[facility]/ZIP Co de Phone Number [facility] * (ABNORMAL) Vitamin D 25 hydroxy (12/06/2018 8:34 AM CDT) Vitamin D, 25-OH, Total, IA 14(L) 30 - 100 ng/mL [facility] Comment: Vitamin D Status 25-OH Vitamin D: Deficiency: <20 ng/mL Insufficiency: 20 - 29 ng/mL Optimal: > or = 30 ng/mL For 25-OH Vitamin D testing on patients on D2-supplementation and patients for whom quantitation of D2 and D3 fractions is required, the QuestAssureD(TM) 25-OH VIT D, (D2,D3), LC/MS/MS is recommended: order code 63438 (patients >2yrs). For more information on this test, go to: http://education.REVShare/faq/ILK804 (This link is being provided for informational/educational purposes only.) 12/06/2018 8:34 AM CDT 12/06/2018 8:35 AM CDT Narrative Resulting Agency Comment Performing Organization Information: Site ID: [place] [facility]: [facility] Address: [address] [place] [phone] Director: Jadiel Winslow D.O., MPH Tl Lawson NP LAB BLOOD ORDERABLES Final Result [facility] * (ABNORMAL) PTH, intact (12/06/2018 8:34 AM CDT) Parathyroid Hormone, Intact 146(H) 14 - 64 pg/mL [facility] Comment: Interpretive Guide Intact PTH Calcium ------- Normal Parathyroid Normal Normal Hypoparathyroidism Low or Low Normal Low Hyperparathyroidism Primary Normal or High High Secondary High Normal or Low Tertiary High High Non-Parathyroid Hypercalcemia Low or Low Normal High 12/06/2018 8:34 AM CDT 12/06/2018 8:35 AM CDT Narrative Resulting Agency Comment Performing Organization Information: Site ID: [place] Name: [facility] Address: [address] [place] [phone] Director: Jadiel Winslow D.O., MPH Tl L Renny TELEVISION OPERATOR LAB BLOOD ORDERABLES Final Result Performing Organization Address [facility] Co de Phone Number [facility] * (ABNORMAL) Protein / creatinine ratio, urine (12/06/2018 8:34 AM CDT) Creatinine, Ur 75 20 - 275 mg/dL [facility] Urine Protein/Creati nine Ratio 2,107(H) 21 - 161 mg/g creat [facility] Protein Urine Random 158(H) 5 - 24 mg/dL [facility] Urine specimen (specimen) Urine specimen obtained by clean catch procedure / Unknown 12/06/2018 8:34 AM CDT 12/06/2018 8:35 AM CDT Narrative Resulting Agency Comment Performing Organization Information: Site ID: [place] Name: [facility] Address: [address] [facility] [place] [address] Director: Jadiel Winslow D.O., MPH Tl Lawson TELEVISION OPERATOR LAB URINE ORDERABLES Final Result Performing Organization Address [facility] de Phone Number [facility] * (ABNORMAL) CBC (12/06/2018 8:34 AM CDT) WBC 8.7 3.8 - 10.8 Thousand/uL [facility] RBC 3.46(L) 3.80 - 5.10 Million/uL [facility] Hemoglobin 10.7(L) 11.7 - 15.5 g/dL [facility] Hematocrit 31.2(L) 35.0 - 45.0 % [facility] MCV 90.2 80.0 - 100.0 fL [facility] MCH 30.9 27.0 - 33.0 pg [facility] MCHC 34.3 32.0 - 36.0 g/dL [facility] RDW 12.7 11.0 - 15.0 % [facility] Platelets 252 140 - 400 Thousand/uL [facility] MPV 10.6 7.5 - 12.5 fL [facility] Blood specimen (specimen) Venous blood / Unknown 12/06/2018 8:34 AM CDT 12/06/2018 8:35 AM CDT Narrative Resulting Agency Comment Performing Organization Information: Site ID: [place] Name: [facility] Address: [address] [facility] [place] [address] Director: Jadiel Winslow D.O. MPH Tl Lawson TELEVISION OPERATOR LAB BLOOD ORDERABLES Final Result Performing Organization Address City/[facility]/ZIP Co de Phone Number CYNDIE STJuan [facility] * (ABNORMAL) Renal function panel (12/06/2018 8:34 AM CDT) Glucose 216(H) 65 - 99 mg/dL [facility] Comment: Fasting reference interval For someone without known diabetes, a glucose value >125 mg/dL indicates that they may have diabetes and this should be confirmed with a follow-up test. BUN 34(H) 7 - 25 mg/dL [facility] Creatinine 2.75(H) 0.50 - 1.10 mg/dL [facility] eGFR Non- 20(L) > OR = 60 mL/min/1.7 3m2 [facility] eGFR 23(L) > OR = 60 mL/min/1.7 3m2 [facility] BUN/Creatinine Ratio 12 6 - 22 (calc) [facility] Sodium 141 135 - 146 mmol/L [facility] Potassium 4.4 3.5 - 5.3 mmol/L [facility] Chloride 110 98 - 110 mmol/L [facility] Bicarbonate (CO2) 19(L) 20 - 32 mmol/L [facility] Calcium 9.4 8.6 - 10.2 mg/dL [facility] Phosphorus 3.4 2.5 - 4.5 mg/dL [facility] Albumin 4.3 3.6 - 5.1 g/dL [facility] Blood specimen (specimen) Venous blood / Unknown 12/06/2018 8:34 AM CDT 12/06/2018 8:35 AM CDT Narrative Resulting Agency Comment Performing Organization Information: Site ID: [place] Name: [facility] Address: [address] [address] Director: Jadiel Winslow D.O., MPH Tl Lawson TELEVISION OPERATOR LAB BLOOD ORDERABLES Final Result Performing Organization Address City/[facility]/ZIP Co de Phone Number CYNDIE STJuan [facility] documented in this encounter Visit Diagnoses Diagnosis Chronic kidney disease stage 4 (HCC) documented in this encounter Care Teams Drawbridge Tender Relationship Specialty Start Date End Date Herber Hussein MD [address] [place] [address] PCP - General Family Medicine 07/14/18 documented as of this encounter
--- NOTE | 2024-10-15 13:22 | XRR_ITS ---
PROCEDURE INFORMATION: Exam: XR Chest Exam date and time: 10/15/2024 1:23 PM Age: 49 years old Clinical indication: Cough and dyspnea; AMS; Additional info: Dyspnea/cough TECHNIQUE: Imaging protocol: Radiologic exam of the chest. Views: 1 view. COMPARISON: CR XR chest 1V portable [id number] 09/26/2024 7:26 AM FINDINGS: Tubes, catheters and devices: Central venous access catheter or port is seen on the left, with tip of the catheter at the expected level of the superior vena cava, unchanged with prior exam. Lungs: Unremarkable. No infiltrate/edema or consolidation. Pleural spaces: Unremarkable. No pleural effusion. No pneumothorax. Heart/Mediastinum: Unremarkable. No cardiomegaly. Bones/joints: Visualized osseous structures show no acute abnormality. XR/XR chest 1V portable [id number] IMPRESSION: No acute cardiopulmonary abnormality.
[2024-10-15 13:29] LABS: Hematocrit 32.5 % (36-47); Hemoglobin 11.30 g/dL (11.27-16.99); Mean Corpuscular HGB Conc 34.8 g/dL (30-55); Mean Corpuscular Hemoglobin 35.5 pg (27-33); Mean Corpuscular Volume 102.2 fl (85-98); Nucleated Red Blood Cells % 0 %; Platelet Count 152 10^3/cmm (157-399); Red Blood Count 3.18 10^6/uL (3.85-5.65); White Blood Count 4.48 10^3/uL (3.29-11.43)
--- NOTE | 2024-10-15 13:33 | ECG_ITS ---
[facility] Test Date: 2024-10-15 Pat Name: Bharati Anthony Department: Room: Gender: Female Database Dba: : 1975 Requested By: Rafat Martinez Order Number: [id number] Dung MD: hJon Telles M.D. Measurements Intervals [place]well Rate: 90 P: 52 OR: 124 QRS: 0 QRSD: 114 T: 56 QT: 410 QTc: 504 Interpretive Statements SINUS RHYTHM POSSIBLE LEFT ATRIAL ENLARGEMENT [-0.1mV P-WAVE IN V1/V2] LEFT VENTRICULAR HYPERTROPHY AND ST-T CHANGE [VOLTAGE CRITERIA PLUS ST/T ABNORMALITY] POSSIBLE LATERAL MYOCARDIAL INFARCTION , PROBABLY OLD [30 ms Q WAVE IN I/aVL/V5/V6] Compared to ECG 09/26/2024 07:20:43 Myocardial infarct finding now present Sinus tachycardia no longer present ST (T wave) deviation still present Electronically Signed On 10-18-2024 10:28:12 CDT by Jhon Telles M.D. [email or web address]
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
[2024-10-15 13:47] LABS: Acetaminophen < 5.0 ug/mL (10-30); Alanine Aminotransferase 12 U/L (0-33); Albumin Level 4.3 g/dL (3.5-5.2); Alcohol Level < 10 mg/dL (0-10); Alkaline Phosphatase 59 U/L (35-105); Anion Gap 15.5 (5-19); Aspartate Amino Transferase 15 U/L (0-32); Blood Urea Nitrogen 9 mg/dL (6-20); Calcium 9.2 mg/dL (8.5-10.5); Carbon Dioxide 34 mmol/L (22-29); Chloride 96 mmol/L (98-107); Creatinine Clr Calc Pharmacy 31.7595; Globulin 2.8 g/dL (1.3-4.6); Glucose 90 mg/dL (65-115); Lipase 61 U/L (13-60); Osmolality Calculated 292 mOsm/kg (285-295); Potassium 3.5 mmol/L (3.5-5.1); Salicylate < 0.3 mg/dL (3-10); Sodium 142 mmol/L (136-145); Total Protein 7.1 g/dL (6.6-8.7)
--- NOTE | 2024-10-15 13:51 | CT_ITS ---
WS: [id number] CT HEAD TECHNIQUE: Noncontrast CT of the head obtained from the skullbase to the vertex. CLINICAL INFORMATION: Altered mental status COMPARISON: 2020 DLP: 1044.[address] scans at [facility] use at least one of these dose optimization techniques: automated exposure control; mA and/or kV adjustment per patient size (includes targeted exams where dose is matched to clinical indication); or iterative reconstruction. FINDINGS: No evidence of intracranial hemorrhage or mass effect. Ventricular system and basal cisterns are patent. Mild small vessel changes with mild parenchymal volume loss. No extra-axial fluid collections. No evidence of mass or mass effect. Vascular calcification. Mucosal thickening in the paranasal sinuses. Mastoid air cells are well aerated. CT/CT head wo con* [id number] IMPRESSION: 1. No evidence of intracranial hemorrhage or mass effect. 2. Mild paranasal sinusitis. 3. No acute intracranial findings.
[2024-10-15 13:53] LABS: ABG PCO2 43.5 mmHg (35-45); ABG PH Result 7.54 (7.35-7.45); Alveolar-Arterial Oxygen Gradi 5.3 mmHg (5-10); Arterial Blood Gas Hematocrit 33.9 % (37-47); Blood Gas Allen Test Pos; Blood Gas Operator Identificat CAK; Blood Gas Sample Site Radial, left; Blood Gas Sample Type Arterial; Carboxyhemoglobin 2.1 %THgb (0.4-20.1); Glucose Level-ABG 97.0 mg/dL (70-115); HCO3 ABG 36.8 mmol/L (22-26); Ionized Calcium Level - ABG 1.1 mmol/L (1.1-1.4); Methemoglobin < 0.0 % (0.4-1.5); Oxygen Saturation ABG 92.3; PO2 ABG 56.1 mmHg (80.0-100.0); PO2 FiO2 Ratio Arterial Blood 267; Potassium Level - ABG 3.6 mmol/L (3.5-5.0); Sodium Level - ABG 140.0 mmol/L (131-143)
[2024-10-15 13:57] LABS: Ketone (Acetest) Serum Negative (Negative)
[2024-10-15 14:04] LABS: Ammonia 20 umol/L (11-51)
[2024-10-15 15:15] LABS: Glucose Urine UA Trace (Normal); Nitrate Urine Negative (Negative); Specific Gravity, Urine 1.008 (1.005-1.030)
[2024-10-15 15:17] LABS: Add Urine Microscopic? YES
[2024-10-15 15:22] LABS: PCP Screen Urine Negative (Negative)
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
[2024-10-15] MEDS: thiamine 500 MG in sodium chloride 0.9% (100 ml) 100 ML 210 MG IV (22:15)
[2024-10-16] VITALS (16 sets, daily range): BP systolic 152–198; BP diastolic 72–112; PULSE 98–126; RESP 10–20; TEMP 36.4–37; O2SAT 92–98
[2024-10-16 00:01] LABS: Vitamin B12 591 pg/mL (232-1245)
--- NOTE | 2024-10-16 00:55 | PC.NURSE ---
Pts mother stated that she wanted the pt to be transferred to [facility] were she normally receives care. This nurse notified house sup and hospitalist. Hospitalist came down to the ER to speak with the pt. Hospitalist explained pts options for transferring. Pt stated she would stay here for OBS.
[2024-10-16] MEDS: ondansetron 2 mg/ML SDV 2 mL 4 MG IVP ×3 (05:33→19:29)
--- OUTSIDE RECORDS SUMMARY | 2024-10-16 06:34 | XMS_ITS | Encounter Summary ---
Author Organization [facility] Address [address] [place] [address] Phone Care Team Providers Care Shoe Folder Name Role Phone Herber Hussein MD Primary Care Provider [phone] Reason for Visit * Reason Comments Med Refill Encounter Details Date Type Department Care Team (Late st Contact Info) Description 02/08/2024 Refill [facility] [address] [place] [id number] Bee Chavarria MD [address] [place] [address] Social History Tobacco Use Types [...] (02/08/2024) Hemoglobin 8.9(L) 12.0 - 16.0 g/dL [facility] Hemoglobin x 3 26.7(L) 36.0 - 48.0 % [facility] 02/08/2024 02/09/2024 12: 25 PM SMELTER OPERATOR Narrative [facility] - 02/09/2024 Unless otherwise specified, test(s) performed at: [facility], [address] [place], [place] [id number] SHOP CLERK: Michael Knox M.D. For any questions, please call customer service at FREQUENCY:OTHER Resulting Agency Comment Specimen source: Blood us Bee Chavarria MD LAB BLOOD ORDERABLES Final Re sult [facility] See order comments or contact performing lab Unknown, [place] documented in this encounter Visit Diagnoses Not on filedocumented in this encounter Care Teams Shoe Folder Relationship Specialty Start Date End Date Herber Hussein MD [address] [place] [address] PCP - General Family Medicine 07/14/18 documented as of this encounter
--- OUTSIDE RECORDS SUMMARY | 2024-10-16 06:34 | XMS_ITS | Encounter Summary ---
Author Organization [facility] Address [address] [place] [address] Phone Care Team Providers Care Residence Manager Name Role Phone Herber Hussein MD Primary Care Provider [phone] Reason for Visit * Reason Comments Med Refill Encounter Details Date Type Department Care Team (Late st Contact Info) Description 06/23/2024 Refill [facility] [address] [place] [address] Bee Chavarria MD [address] [place] [address] Social History Tobacco Use Types [...] on filedocumented in this encounter Care Teams Residence Manager Relationship Specialty Start Date End Date Herber Hussein MD [address] [place] [address] PCP - General Family Medicine 07/14/18 documented as of this encounter
--- OUTSIDE RECORDS SUMMARY | 2024-10-16 06:34 | XMS_ITS | Encounter Summary ---
Author Organization [facility] Address [address] [place] [address] Phone Care Team Providers Care Commercial Driver Name Role Phone Herber Hussein MD Primary Care Provider [phone] Encounter Details Date Type Department Care Team (Late st Contact Info) Description 10/10/2024 [facility] [address] [place] [address] Bee Chavarria MD [address] [place] [address] End stage renal disease; Dependence [...] Bharati Anthony, 1975, 49y, F Dialysis Location: [facility] Attending Deicer Finisher: Bee Chavarria Service Date: 10/10/2024 Service Provider: [...] TRANSPLANT Comments: She has received paperwork from [facility] for transplant. She has now decided again [...] dialysis documented in this encounter Care Teams Commercial Driver Relationship Specialty Start Date End Date Herber Hussein MD [address] [place] [address] PCP - General Family Medicine 07/14/18 documented as of this encounter
--- OUTSIDE RECORDS SUMMARY | 2024-10-16 06:34 | XMS_ITS | Encounter Summary ---
Author Organization [facility] Address [address] [place] [address] Phone Care Team Providers Care Real Estate Appraiser Supervisor Name Role Phone Herber Hussein MD Primary Care Provider [phone] Encounter Details Date Type Department Care Team (Late st Contact Info) Description 10/10/2024 Orders Only [facility] [address] [place] [address] Bee Chavarria MD [address] [place] [address] Social History Tobacco Use Types [...] x 3 32.4(L) 36.0 - 48.0 % [facility] 10/10/2024 10/11/2024 9:0 7 AM CDT Narrative [facility]IS[facility] - 10/11/2024 Unless otherwise specified, test(s) performed at: [facility], [address] [place] [address] MIX HOUSE TENDER: Michael Knox M.D. For any questions, please call customer service at FREQUENCY:OTHER Resulting Agency Comment Specimen source: Blood us Bee Chavarria MD LAB BLOOD ORDERABLES Final Re sult [facility] See order comments or contact performing lab Unknown, [place] documented in this encounter Visit Diagnoses Not on filedocumented in this encounter Care Teams Real Estate Appraiser Supervisor Relationship Specialty Start Date End Date Herber Hussein MD [address] [place] [address] PCP - General Family Medicine 07/14/18 documented as of this encounter
--- OUTSIDE RECORDS SUMMARY | 2024-10-16 06:34 | XMS_ITS | Encounter Summary ---
Author Organization [facility] Address [address] [place] [address] Phone Care Team Providers Care Educational Sign Language Interpreter Name Role Phone Herber Hussein MD Primary Care Provider [phone] Reason for Visit * Reason Comments Med Refill Encounter Details Date Type Department Care Team (Late st Contact Info) Description 02/21/2024 Refill [facility] [address] [place] [address] Bee Chavarria MD [address] [place] [address] Social History Tobacco Use Types [...] on filedocumented in this encounter Care Teams Educational Sign Language Interpreter Relationship Specialty Start Date End Date Herber Hussein MD [address] [place] [address] PCP - General Family Medicine 07/14/18 documented as of this encounter
--- OUTSIDE RECORDS SUMMARY | 2024-10-16 06:35 | XMS_ITS | Encounter Summary ---
Author Organization [facility] Address [address] [place] [address] Phone Care Team Providers Care Title Department Manager Name Role Phone Herber Hussein MD Primary Care Provider [phone] Encounter Details Date Type Department Care Team (Late st Contact Info) Description 08/24/2018 Orders Only [facility] [address] [place] [address] Mohsen Mann MD [address] [facility] [address] [place] [address] Chronic kidney disease stage 4 [...] (HCC) documented in this encounter Care Teams Title Department Manager Relationship Specialty Start Date End Date Herber Hussein MD [address] [place] [address] PCP - General Family Medicine 07/14/18 documented as of this encounter
--- OUTSIDE RECORDS SUMMARY | 2024-10-16 06:35 | XMS_ITS | Encounter Summary ---
Author Organization [facility] Address [address] [place] [address] Phone Care Team Providers Care Environmental Science Professor Name Role Phone Herber Hussein MD Primary Care Provider [phone] Reason for Visit * Reason Comments Med Refill Encounter Details Date Type Department Care Team (Late st Contact Info) Description 05/06/2020 Refill [facility] [address] [place] [address] Mohsen Mann MD [address] [place] [address] Social History Tobacco Use Types [...] on filedocumented in this encounter Care Teams Environmental Science Professor Relationship Specialty Start Date End Date Herber Hussein MD [address] [place] [address] PCP - General Family Medicine 07/14/18 documented as of this encounter
--- OUTSIDE RECORDS SUMMARY | 2024-10-16 06:35 | XMS_ITS | Encounter Summary ---
Author Organization [facility] [employer] Address [address] [facility] [address] [place] [address] Phone Care Team Providers Care Field Care Coordinator Name Role Phone Herber Hussein MD Primary Care Provider [phone] Encounter Details Date Type Department Care Team (Late st Contact Info) Description 09/29/2018 Orders Only [facility] [address] [place] [address] Tl Lawson NP Chronic kidney [...] (HCC) documented in this encounter Care Teams Field Care Coordinator Relationship Specialty Start Date End Date Herber Hussein MD [address] [place] [address] PCP - General Family Medicine 07/14/18 documented as of this encounter
--- OUTSIDE RECORDS SUMMARY | 2024-10-16 06:35 | XMS_ITS | Encounter Summary ---
Author Organization [facility] Address [address] [place] [address] Phone Care Team Providers Care Seo Coordinator Name Role Phone Herber Hussein MD Primary Care Provider [phone] Reason for Visit * Reason Comments Med Refill Encounter Details Date Type Department Care Team (Late st Contact Info) Description 08/21/2021 Refill [facility] [address] [place] [address] Mohsen Mann MD [address] [place] [address] Social History Tobacco Use Types [...] on filedocumented in this encounter Care Teams Seo Coordinator Relationship Specialty Start Date End Date Herber Hussein MD [address] [place] [address] PCP - General Family Medicine 07/14/18 documented as of this encounter
--- OUTSIDE RECORDS SUMMARY | 2024-10-16 06:35 | XMS_ITS | Encounter Summary ---
Author Organization [facility] Address [address] [facility] [address] [place] [address] Phone Care Team Providers Care Farmer [employer] Name Role Phone Herber Hussein MD Primary Care Provider [phone] Encounter Details Date Type Department Care Team (Late st Contact Info) Description 12/11/2018 Orders Only [facility] [address] [place] [address] Tl Lawson, [place] Chronic kidney [...] HEPATITIS C ANTIBODY Routine 04/30/2019 10:54 AM CLINICAL SPECIALIST HEPATITIS A ANTIBODY, IGM Routine 04/30/2019 10:54 AM CLINICAL SPECIALIST HEPATITIS B CORE ANTIBODY, IGM Routine 04/30/2019 10:54 AM CLINICAL SPECIALIST HEPATITIS B SURFACE ANTIGEN Routine 04/30/2019 10:54 AM CLINICAL SPECIALIST RENAL FUNCTION PANEL Routine 04/30/2019 10:54 AM CLINICAL SPECIALIST PROTEIN / CREATININE RATIO, URINE Routine 04/11/2019 1:09 PM CLINICAL SPECIALIST CBC AND DIFFERENTIAL Routine 04/11/2019 1:09 PM CLINICAL SPECIALIST RENAL FUNCTION PANEL Routine 04/11/2019 1:09 PM CLINICAL SPECIALIST PROTEIN / CREATININE RATIO, URINE Routine 12/06/2018 [...] (ABNORMAL) Renal Function Panel (04/30/2019 10:54 AM CLINICAL SPECIALIST) Glucose 268(H) 65 - 99 mg/dL [facility] [...] 5.1 g/dL [facility] 04/30/2019 10:5 4 AM CLINICAL SPECIALIST 04/30/2019 10:55 AM CLINICAL SPECIALIST Narrative Resulting Agency Comment Performing Organization Information: Site ID: [place] Name: [facility] Address: [address] [address] Director: Jadiel Winslow D.O., MPH Mohsen Mann MD LAB BLOOD ORDERABLES Fi nal Result [facility] * Hepatitis C antibody (04/30/2019 10:54 AM CLINICAL SPECIALIST) Hepatitis C Antibody NON-REACTI VE NON-REACT JUICE [facility] Signal/Cutoff 0.08 <1.00 [facility] Comment: HCV antibody was non-reactive. There is no laboratory evidence of HCV infection. In most cases, no further action is required. However, if recent HCV exposure is suspected, a test for HCV RNA (test code 81915) is suggested. For additional information please refer to http://education.[employer]/faq/KFP49j1 (This link is being provided for informational/ educational purposes only.) 04/30/2019 10:5 4 AM CLINICAL SPECIALIST 04/30/2019 10:55 AM CLINICAL SPECIALIST Narrative Resulting Agency Comment Performing Organization Information: Site ID: RIK Name: [facility] Address: [address] [place] [phone] Director: Jadiel Winslow D.O., MPH Mohsen Mann MD LAB BLOOD ORDERABLES Fi nal Result Performing Organization Address [facility] de Phone Number [facility] * Hepatitis B core antibody, IgM (04/30/2019 10:54 AM CLINICAL SPECIALIST) Hep B Core IgM NON-REACTI VE NON-REACTI VE [facility] 04/30/2019 10:5 4 AM CLINICAL SPECIALIST 04/30/2019 10:55 AM CLINICAL SPECIALIST Narrative Resulting Agency Comment Performing Organization Information: Site ID: R[place] Name: [facility] [employer] Address: [address] [place] [phone] Director: Jadiel Winslow D.O., MPH Mohsen Mann MD LAB BLOOD ORDERABLES Fi nal Result Performing Organization Address [facility] Phone Number [facility] * Hepatitis B Surface Antigen (04/30/2019 10:54 AM CLINICAL SPECIALIST) Hep B Surface Antigen NON-REACTIVE NON-REACT JUICE [facility] Confirmation CANCELED [facility] Comment:Result canceled by kavon lacy. 04/30/2019 10:5 4 AM CLINICAL SPECIALIST 04/30/2019 10:55 AM CLINICAL SPECIALIST Narrative Resulting Agency Comment Performing Organization Information: Site ID: RIK Name: [employer] [employer] Address: [address] [place] [phone] Director: Jadiel Winslow D.O., MPH Mohsen Mann MD LAB BLOOD ORDERABLES Fi nal Result Performing Organization Address [facility] de Phone Number [facility] * Hepatitis A antibody, IgM (04/30/2019 10:54 AM CLINICAL SPECIALIST) Hep A IgM NON-REACTI VE NON-REACTI VE [facility] Comment: For additional information, please refer to http://education.[employer]/faq/VPH669 (This link is being provided for informational/ educational purposes only.) 04/30/2019 10:5 4 AM CLINICAL SPECIALIST 04/30/2019 10:55 AM CLINICAL SPECIALIST Narrative Resulting Agency Comment Performing Organization Information: Site ID: R[place] Name: [employer] [employer] Address: [address] [place] [phone] Director: Jadiel Winslow D.O. MPH Mohsen Mann MD LAB BLOOD ORDERABLES Fi nal Result Performing Organization Address [facility] de Phone Number [facility] * (ABNORMAL) Protein, Total, Random Urine w/Creatinine (Protein/Creat Ratio) (04/11/2019 1:09 PM CLINICAL SPECIALIST) Creatinine, Ur 58 20 - 275 mg/dL [facility] Urine Protein/Creati nine Ratio 3,397(H) 21 - 161 mg/g creat [facility] Protein/Creati nine Ratio, Urine 3.397(H) 0.021 - 0.161 mg/mg creat [facility] Protein Urine Random 197(H) 5 - 24 mg/dL [facility] 04/11/2019 1:09 PM CLINICAL SPECIALIST 04/11/2019 1:10 PM CLINICAL SPECIALIST Narrative Resulting Agency Comment Performing Organization Information: Site ID: [place] Name: [employer] Address: [address] [place] [phone] Director: Jadiel Winslow D.O. MPH Yuliana Maradiaga NP LAB URINE ORDERABLES Final Resul t Performing Organization Address [facility] de Phone Number [facility] * (ABNORMAL) CBC and Differential (04/11/2019 1:09 PM CLINICAL SPECIALIST) WBC 9.3 3.8 - 10.8 Thousand/ uL [...] by t he ancillary. 04/11/2019 1:09 PM CLINICAL SPECIALIST 04/11/2019 1:10 PM CLINICAL SPECIALIST Narrative Resulting Agency Comment Performing Organization Information: Site ID: [place] Name: [facility] Address: [address] [place] [address] Director: Jadiel Winslow D.O., MPH Yuliana Maradiaga [employer] LAB BLOOD ORDERABLES Final Resul t Performing Organization Address City/[facility]/ZIP Co de Phone Number [facility] * (ABNORMAL) Renal Function Panel (04/11/2019 1:09 PM CLINICAL SPECIALIST) Glucose 228(H) 65 - 99 mg/dL [facility] [...] - 5.1 g/dL [facility] 04/11/2019 1:09 PM CLINICAL SPECIALIST 04/11/2019 1:10 PM CLINICAL SPECIALIST Narrative Resulting Agency Comment Performing Organization Information: Site ID: [place] Name: [facility] Address: [facility] [place] [address] Director: Jadiel Winslow D.O., MPH us Yuliana Maradiaga NP LAB BLOOD ORDERABLES Final Resul t Performing Organization Address City/[facility]/ZIP Co de Phone Number [facility] [...] D, (D2,D3), LC/MS/MS is recommended: order code [id number] (patients >2yrs). For more information on this test, go to: http://education.[employer]/faq/VMS585 (This link is being provided for informational/educational purposes only.) 12/06/2018 8:34 AM CDT 12/06/2018 8:35 AM CDT Narrative Resulting Agency Comment Performing Organization Information: Site ID: [place] [facility] Address: [address] [place] [phone] Director: Jadiel Winslow D.O., MPH Tl Lawson [...] Performing Organization Information: Site ID: [place] Name: [facility] Address: [address] [place] [phone] Director: Jadiel Winslow D.O., MPH Tl L Renny [employer] LAB BLOOD ORDERABLES Final Result Performing Organization Address [facility] Co de Phone Number [facility] STL [...] Performing Organization Information: Site ID: R[place] Name: [employer] Address: [address] [facility] [address] Director: Jadiel Winslow D.O., MPH Tl Lawson [employer] LAB URINE ORDERABLES Final Result Performing Organization Address [facility] de Phone Number [facility] [...] Performing Organization Information: Site ID: [place] Name: [facility] [employer] Address: [address] [facility] [address] Director: Jadiel Winslow D.O. MPH Tl Lawson [employer] LAB BLOOD ORDERABLES Final Result Performing Organization Address City/[facility]/ZIP Co de Phone Number CYNDIE STJuan [facility] [...] Performing Organization Information: Site ID: [place] Name: [facility] Address: [address] [address] Director: Jadiel Winslow D.O., MPH Tl Lawson [employer] LAB BLOOD ORDERABLES Final Result Performing Organization Address City/[facility]/ZIP Co de Phone Number CYNDIE STJuan [facility] documented in this encounter Visit Diagnoses Diagnosis Chronic kidney disease stage 4 (HCC) documented in this encounter Care Teams Farmer [employer] Relationship Specialty Start Date End Date Herber Hussein MD [address] [place] [address] PCP - General Family Medicine 07/14/18 documented as of this encounter
--- OUTSIDE RECORDS SUMMARY | 2024-10-16 06:35 | XMS_ITS | Encounter Summary ---
Author Organization [facility] [employer] [employer] Address [address] [place] [address] Phone Care Team Providers Care Hi Low Truck Driver Name Role Phone Herber Husseni MD Primary Care Provider [phone] Reason for Visit * Reason Comments Med Refill Encounter Details Date Type Department Care Team (Late st Contact Info) Description 10/29/2020 Refill [facility] [address] [place] [address] Mohsen Mann MD [address] [place] [address] Social History Tobacco Use Types [...] on filedocumented in this encounter Care Teams Hi Low Truck Driver Relationship Specialty Start Date End Date Herber Hussein MD [address] [place] [address] PCP - General Family Medicine 07/14/18 documented as of this encounter
--- OUTSIDE RECORDS SUMMARY | 2024-10-16 06:35 | XMS_ITS | Encounter Summary ---
Author Organization [facility] [employer] Address [address] [place] [address] Phone Care Team Providers Care Ic Designer Custom Name Role Phone Herber Hussein MD Primary Care Provider [phone] Reason for Visit * Reason Comments Med Refill Encounter Details Date Type Department Care Team (Late st Contact Info) Description 01/30/2021 Refill [facility] [address] [place] [address] Mohsen Mann MD [address] [place] [address] Social History Tobacco Use Types [...] on filedocumented in this encounter Care Teams Ic Designer Custom Relationship Specialty Start Date End Date Herber Hussein MD [address] [place] [address] PCP - General Family Medicine 07/14/18 documented as of this encounter
--- OUTSIDE RECORDS SUMMARY | 2024-10-16 06:35 | XMS_ITS | Encounter Summary ---
Author Organization [facility] [employer] [facility] Address [address] [place] [address] Phone Care Team Providers Care Mechanical Development Engineer Name Role Phone Herber Hussein MD Primary Care Provider [phone] Reason for Visit * Reason Comments Med Refill Encounter Details Date Type Department Care Team (Late st Contact Info) Description 05/30/2020 Refill [facility] [address] [place] [address] Mohsen Mann MD [address] [place] [address] Social History Tobacco Use Types [...] on filedocumented in this encounter Care Teams Mechanical Development Engineer Relationship Specialty Start Date End Date Herber Hussein MD [address] [place] [address] PCP - General Family Medicine 07/14/18 documented as of this encounter
--- OUTSIDE RECORDS SUMMARY | 2024-10-16 06:35 | XMS_ITS | Encounter Summary ---
Author Organization [facility] [employer] Address [address] [facility] [address] [place] [address] Phone Care Team Providers Care Marketing Engineer Name Role Phone Herber Hussein MD Primary Care Provider [phone] Encounter Details Date Type Department Care Team (Late st Contact Info) Description 08/25/2018 Orders Only [facility] [address] [place] [address] Tl Lawson NP Chronic kidney [...] (HCC) documented in this encounter Care Teams Marketing Engineer Relationship Specialty Start Date End Date Herber Hussein MD [address] [place] [address] PCP - General Family Medicine 07/14/18 documented as of this encounter
--- OUTSIDE RECORDS SUMMARY | 2024-10-16 06:35 | XMS_ITS | Encounter Summary ---
Author Organization [facility] [employer] Address [address] [place] [address] Phone Care Team Providers Care Supervisor Coke Handling Name Role Phone Herber Hussein MD Primary Care Provider [phone] Encounter Details Date Type Department Care Team (Late st Contact Info) Description 11/08/2018 Orders Only [facility] [facility] [address] [place] [address] Sherry Lau MA [address] [place] [address] Chronic kidney disease stage 4 [...] Agency Comment Performing Organization Information: Site ID: [place] Name: [facility] [employer] Address: [address] [facility] [place] [address] Director: Jadiel Winslow D.O., MPH us Mohsen [...] Performing Organization Information: Site ID: RIK Name: [employer] Address: [address] [place] [address] Director: Jadiel Winslow D.O., MPH Mohsen Mann [...] Performing Organization Information: Site ID: RIK Name: [employer] Address: [address] [address] Director: Jadiel Winslow D.O., MPH us Mohsen Mann MD LAB BLOOD ORDERABLES Fi nal Result CYNDIE STJuan AGEE documented in this encounter Visit Diagnoses Diagnosis Chronic kidney disease stage 4 (HCC) Essential hypertension documented in this encounter Care Teams Supervisor Coke Handling Relationship Specialty Start Date End Date Herber Hussein MD [address] [place] [address] PCP - General Family Medicine 07/14/18 documented as of this encounter
--- OUTSIDE RECORDS SUMMARY | 2024-10-16 06:35 | XMS_ITS | Encounter Summary ---
Author Organization [facility] [employer] Address [address] [place] [address] Phone Care Team Providers Care Guard Lieutenant Name Role Phone Herber Hussein MD Primary Care Provider [phone] Reason for Visit * Reason Comments Med Refill Encounter Details Date Type Department Care Team (Late st Contact Info) Description 11/23/2021 Refill [facility] [address] [place] [address] Mohsen Mann MD [address] [place] [address] Social History Tobacco Use Types [...] on filedocumented in this encounter Care Teams Guard Lieutenant Relationship Specialty Start Date End Date Herber Hussein MD [address] [place] [address] PCP - General Family Medicine 07/14/18 documented as of this encounter
--- OUTSIDE RECORDS SUMMARY | 2024-10-16 06:35 | XMS_ITS | Encounter Summary ---
Author Organization [facility] [employer] Address [address] [place] [address] Phone Care Team Providers Care Feather Renovator Name Role Phone Herber Hussein MD Primary Care Provider [phone] Reason for Visit * Reason Comments Med Refill Encounter Details Date Type Department Care Team (Late st Contact Info) Description 11/20/2020 Refill [facility] [address] [place] [address] Mohsen Mann MD [address] [place] [address] Social History Tobacco Use Types [...] on filedocumented in this encounter Care Teams Feather Renovator Relationship Specialty Start Date End Date Herber Hussein MD [address] [place] [address] PCP - General Family Medicine 07/14/18 documented as of this encounter
--- OUTSIDE RECORDS SUMMARY | 2024-10-16 06:35 | XMS_ITS | Clinical Summary ---
Author Organization [facility] Facility Address [address] [place] [address] Care Team Providers Care Side Seam Tender Name Role Phone Herber Hussein MD Primary Care Provider [phone] Allergies Active Allergy Reactions Criticality Noted Date Comments Adhesive Tape 03/31/2018 Other reaction(s): Other (See Comments) blister Cephalexin Rash Medium 05/24/2018 Cephalosporins Rash Low 04/01/2017 Tolerated zosyn, unasyn Latex Rash Medium 05/24/2018 Medications Vit-Fe Fumarate-FA ( VITAMIN PO) Take 1 tablet by mouth 1 (one) time each day Active ergocalciferol (DRISDOL) 79985 units capsule Take 1 capsule by mouth [...] (01/11/2022): Added automatically from request for surgery [id number] Anemia in chronic kidney disease 10/10/2018 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 05/25/2018 Acute nontraumatic kidney injury 05/25/2018 Essential hypertension 05/25/2018 Type 2 diabetes mellitus 05/25/2018 IgA nephropathy 05/25/2018 Thromboembolism of vein 06/12/2017 Tobacco use 04/26/2017 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 Methamphetamine abuse 04/01/2017 Splenic infarction 04/01/2017 Encounters Date Type Department Care Team Description 10/10/2024 [facility] [address] [place] [address] Bee Chavarria MD 10/10/2024 Treatment [facility] [address] [place] [address] Bee Chavarria MD End stage renal disease; Dependence on renal dialysis 10/05/2024 Orders Only [facility] [address] [place] [address] Bee Chavarria MD 10/05/2024 Documentation Only [facility] [address] [place] [address] Daisy Lindsay NP 10/04/2024 [facility]phone [facility] [address] [place] [address] Yuliana Maradiaga NP 09/26/2024 [facility] [address] [place] [address] Bee Chavarria MD 09/26/[address] [place] [address], [facility] [address] [place] [address] Daisy Lindsay NP End stage renal disease; Dependence on renal dialysis 09/19/2024 [facility] [address] [place] [address] Bee Chavarria MD 09/19/[address] [place] [address], [facility] [address] [place] [address] Daisy Lindsay NP End stage renal disease; Dependence on renal dialysis 09/12/2024 [facility] [address] [place] [address] Bee Chavarria MD 09/10/[address] [place] [address], [facility] [address] [place] [address] Ana Viramontes NP End stage renal disease; Dependence on renal dialysis 09/05/2024 [facility] [address] [place] [address] Bee Chavarria MD 09/05/[address] [place], [place] [address]rology [facility], [facility] [address] [place] [address] Bee Chavarria MD End stage renal disease; Dependence on renal dialysis 08/29/2024 Orders Only [facility], [facility] [address] [place] [address] Bee Chavarria MD 08/27/2024 [facility] [address] [place] [address] Ana Viramontes NP End stage renal disease; Dependence on renal dialysis 08/24/2024 [facility] [address] [place] [address] Bee Chavarria MD 08/20/[address] [address] [place] [address] Ana Viramontes NP End stage renal disease; Dependence on renal dialysis 08/17/2024 [facility] [address] [place] [address] Bee Chavarria MD 08/15/2024 Orders Only [facility], [facility] [address] [place] [address] Bee Chavarria MD 08/15/[address], [facility] [address] [place] [address] Bee Chavarria MD End stage renal disease; Dependence on renal dialysis 08/08/2024 Orders Only [facility], [facility] [address] [place] [address] Bee Chavarria MD 08/06/2024 Orders Only [facility], [facility] [address] [place] [address] eBe Chavarria MD 08/06/2024 Treatment [facility] [address] [place] [address] Daisy Lindsay NP End stage renal disease; Dependence on renal dialysis 08/01/2024 Orders Only [facility], [facility] [address] [place] [address] Bee Chavarria MD 07/30/2024 Treatment [facility] [address] [place] [address] Ana Viramontes NP End stage renal disease; Dependence on renal dialysis 07/27/2024 Orders Only [facility], [facility] [address] [place] [address] Bee Chavarria MD 07/25/2024 Orders Only [facility], [facility] [address] [place] [address] Bee Chavarria MD 07/23/2024 [facility] [address] [place] [address] Daisy Lindsay NP End stage renal disease; Dependence on renal dialysis 07/18/2024 Orders Only [facility] [address] [place] [address] Bee Chavarria MD from Last [...] x 3 32.4(L) 36.0 - 48.0 % [facility] 10/10/2024 10/11/2024 9:0 7 AM CDT Narrative [facility] - 10/11/2024 Unless otherwise specified, test(s) performed at: [facility], [address] [place] [address] LEARNING AND DEVELOPMENT CONSULTANT: Michael Knox M.D. For any questions, please call customer service at FREQUENCY:OTHER Resulting Agency Comment Specimen source: Blood Bee Chavarria MD LAB BLOOD ORDERABLES Final Re sult Performing Organization Address City/[facility]/ZIP Co de Phone Number [facility] See order comments or contact performing lab Unknown, [place] * HD KINETICS (09/26/2024) Only the most recent of4 resultswithin the time period is included. % Urea Reduction 80 65 - 80 % [facility] 09/26/2024 09/27/2024 11: 55 AM CDT Narrative Resulting Agency Comment Specimen source: Plasma Bee Chavarria MD LAB BLOOD ORDERABLES Final Re sult [facility] See order comments or contact performing lab Unknown, [place] * POST CHEMISTRY (09/26/2024) Only the most recent of4 resultswithin the time period is included. BUN Post Dialysis 12 6 - 19 mg/dL [facility] 09/26/2024 09/27/2024 11: 55 AM CDT Narrative [facility] - 09/27/2024 Unless otherwise specified, test(s) performed at: [facility], [address] [place], [place] [id number] LEARNING AND DEVELOPMENT CONSULTANT: Michael Knox M.D. For any questions, please call customer service at FREQUENCY:OTHER Resulting Agency Comment Specimen source: Plasma us Bee Chavarria MD LAB BLOOD ORDERABLES Final Re sult Performing Organization Address [facility]/ZIP Co de Phone Number [facility] See order comments or contact performing lab Unknown, [place] * (ABNORMAL) [facility] Chemistry (09/26/2024) Only the most recent of7 resultswithin the time period is included. Pathologist [facility] BUN 59(H) 6 - 19 mg/dL [facility] 09/26/2024 09/27/2024 12: 27 PM CDT Narrative [facility] - 09/27/2024 Unless otherwise specified, test(s) performed at: [facility], [address] [place] [id number] LEARNING AND DEVELOPMENT CONSULTANT: Michael Knox M.D. For any questions, please call customer service at FREQUENCY:OTHER Resulting Agency Comment Specimen source: Serum us Bee Chavarria MD LAB BLOOD ORDERABLES Final Re sult [facility] See order comments or contact performing lab Unknown, [place] * [facility] Results (09/26/2024) Only the most recent of4 resultswithin the time period is included. Pathologist [facility] eKt/V Gotch 1.30 [facility] spKt/V (Daugirdas II) 1.64 [facility] PCR 56.82 [facility] eNPCR 0.91 [facility] WSTDKT/V 1.6 [facility] nPCR_HD 1.00 [facility] eKdrt/V 1.30 [facility] spKt/V Gotch 1.61 [facility] eKt/V ([place]) 1.36 [facility] 09/26/2024 09/26/2024 Aissatou Ordering Provider LAB BLOOD ORDERABLES Final Result [facility] Contact Performing lab Unknown, [place] * Blood culture (07/27/2024) Culture Result See below [facility] Comment: No Aerobic or Anaerobic Growth after 5 Days of Incubation. 07/27/2024 07/28/2024 10: 10 AM CDT Narrative [facility] - 08/02/2024 Unless otherwise specified, test(s) performed at: [facility], [address] [place] [address] LEARNING AND DEVELOPMENT CONSULTANT: Michael Knox M.D. For any questions, please call customer service at FREQUENCY:OTHER Resulting Agency Comment Specimen source: Blood/Dialysis Bloodline Bee Chavarria MD LAB MICROBIOLOGY - GENERAL OR DERABLES Final Result Performing Organization Address City/[facility]/ZIP Co de Phone Number [facility] See order comments or contact performing lab Unknown, [place] * Blood culture (07/27/2024) Culture, Blood See below [facility] Comment: No Aerobic or Anaerobic Growth after 5 Days of Incubation. 07/27/2024 07/28/2024 10: 10 AM CDT Narrative [facility] - 08/02/2024 Unless otherwise specified, test(s) performed at: [facility], [address] [place] [id number] LEARNING AND DEVELOPMENT CONSULTANT: Michael Knox M.D. For any questions, please call customer service at FREQUENCY:OTHER Resulting Agency Comment Specimen source: Blood/Dialysis Bloodline Bee Chavarria MD LAB MICROBIOLOGY - GENERAL OR DERABLES Final Result [facility] See order comments or contact performing lab Unknown, [place] * (ABNORMAL) SPECIAL CHEMISTRY (02/22/2024) Hemoglobin A1C 6.1(H) 4.8 - 5.9 % [facility] 02/22/2024 02/23/2024 11: 16 AM SHIFT NURSE MANAGER Narrative [facility] - 02/23/2024 Unless otherwise specified, test(s) performed at: [facility], [address] [place] [address] LEARNING AND DEVELOPMENT CONSULTANT: Michael Knox M.D. For any questions, please call customer service at FREQUENCY:MONTHLY Resulting Agency Comment Specimen source: Blood Bee Chavarria MD LAB BLOOD BANK TEST ORDERABLE S Final Result Performing Organization Address City/[facility]/ZIP Co de Phone Number [facility] See order comments or contact performing lab Unknown, [place] from Last 3 Months or Most Recently Relevant to Health Maintenance Insurance Medicaid [place] ([id number]) Medicare Care Teams Side Seam Tender Relationship Specialty Start Date End Date Herber Hussein MD [address] [place] [address] PCP - General Family Medicine 07/14/18
[2024-10-16] MEDS: heparin 5,000 unit/mL INJ 1 mL 5000 UNIT SUBCUT ×2 (09:04→20:28)
--- NOTE | 2024-10-16 09:26 | PC.CHAP ---
Pastoral Care Encounter/Spiritual Assessment Type of Contact [] Declined box inspector visit [] Patient/Family/Request visit [] Outpatient visit [] Follow-up visit [] Physician referral [] Code/Alert [] Routine visit [] Staff referral [] Actively dying [] Patient sleeping [] Family support [] [] Out of room [] Palliative care [] [x] Receiving care in room [] Pre-surgical visit [] Trauma [] Long length of stay [] ICU visit [] Other: Relational/Emotional Strength [] Patient feels connected with others/family/visitors/staff [] Distress [] Loneliness/isolation [] Abandonment Spirituality of Patient [] Person of Elsie [] Attends Latter-Day of their Elsie [] Believes in Prayer [] Reads Bible or Latter Day materials [] There are Spiritual issues to be addressed Briquette Molder Interventions [] Prayer [] Active listening [] Non-anxious presence [] Spiritual/emotional support [] Crisis/trauma care [] Spiritual counseling [] Bereavement support [] Provided bereavement packet [] Provided Bible/devotional materials [] Provided toy/stuffed animal, coloring book to patient or family member [] Provided Communion [] Anointing/[place] [] Salvation [] Completed spiritual assessment [] Other: Impact on Illness or Injury [] Angry [] Fearful [] Anxious [] Often cries [] Exhaustion [] Unable to work [] Unable to attend restoration [] Unable to walk/stand [] Unable to read [] Unable to drive [] Unable to eat/drink [] Unable to sleep [] Unable to be with family [] Patient intubated [] Other: Summary Time spent with patient
[2024-10-16 09:28] LABS: Estmated Average Glucose 97; Hemoglobin A1C 5.0 % (4.0-6.0)
[2024-10-16 09:32] LABS: Procalcitonin 0.25 ng/mL (0-0.5); Thyroid Stimulating Hormone 1.89 uIU/mL (0.27-4.20)
--- NOTE | 2024-10-16 09:39 | PM.CONSULT ---
Providers/Reason For Consult Consulting Physician/Specialty*: vlad Reason for Consult*: ESRD Attending Physician: Daniela Brown MD Primary Care Provider: Herber Hussein MD History of Present Illness History of Present Illness Bharati Anthony is a 49 year old female Patient is a 49-year-old female with past medical history of anemia end-stage renal disease on dialysis per Tuesday, DVT, on chronic anticoagulation presented due to possible confusion. Patient finished dialysis yesterday and driving home from dialysis and was driving in the opposite direction and she was stopped by police and was brought to the ER. Vital signs stable in the ER lab data reviewed potassium was 3.5 creatinine was 2.3. Review of Systems Narrative: negative Medications/Allergies Home Medications ?Medication ?Instructions ?Recorded ?Confirmed ?Last Taken ?Type acetaminophen 325 mg capsule 650 mg PO QID PRN Pain 06/19/19 10/15/24 07/30/24 History pantoprazole 40 mg tablet,delayed 40 mg PO BID 06/19/19 10/15/24 07/30/24 History release sodium bicarbonate 650 mg tablet 650 mg PO DAILY PRN Dialysis 09/18/19 10/15/24 07/30/24 History alprazolam 0.25 mg tablet (Xanax) 0.25 mg PO BID PRN Anxiety 04/01/20 10/15/24 07/30/24 History diphenhydramine HCl 25 mg capsule 25 mg PO TID PRN Itching 04/01/20 10/15/24 07/30/24 History (Benadryl) melatonin 10 mg capsule 10 mg PO BEDTIME 01/21/23 10/15/24 07/30/24 History ropinirole 0.25 mg tablet 0.25 mg PO BEDTIME 01/21/23 10/15/24 07/30/24 History vit B,C-folic ac 800 mcg-zinc 12.5 1 tab PO DAILY 01/21/23 10/15/24 07/30/24 History mg-selen-D3 2,000 unit-vit E tablet (RenaPlex-D) amlodipine 10 mg tablet 10 mg PO DAILY 03/22/24 10/15/24 07/30/24 History citalopram 20 mg tablet 20 mg PO DAILY 03/22/24 10/15/24 07/30/24 History albuterol sulfate 90 mcg/actuation 2 inh inhalation QID shortness of 09/04/24 10/15/24 Unknown Rx aerosol inhaler breath #8.5 grams ondansetron 4 mg disintegrating 4 mg PO Q6H PRN nausea and 09/26/24 10/15/24 Unknown Rx tablet vomiting #14 tabs semaglutide 1 mg/dose (4 mg/3 mL) 1 mg SUBCUT Q7D 10/15/24 10/15/24 Unknown History subcutaneous pen injector (Ozempic) Allergies Allergy/AdvReac Type Severity Reaction Status Date / Time sulfamethoxazole (From Allergy Severe ALGY-Rash Verified 09/18/24 10:58 Sulfamethoxazole-Trimethoprim) trimethoprim (From Allergy Severe ALGY-Rash Verified 09/18/24 10:58 Sulfamethoxazole-Trimethoprim) adhesive tape Allergy Unknown blisters Verified 09/18/24 10:58 Cephalosporins Allergy Unknown unknown Verified 09/18/24 10:58 doxycycline Allergy ADR-Vomitin Verified 09/18/24 10:58 g latex Allergy blisters Verified 09/18/24 10:58 Sulfa (Sulfonamide Allergy Unknown Verified 10/16/24 07:58 Antibiotics) Current Medications Generic Name Dose Route Start Last Admin Trade Name Freq PRN Reason Stop Dose Admin Citalopram Hydrobromide 20 mg 10/16/24 09:00 10/16/24 09:04 Citalopram 20 Mg Tablet PO 20 mg DAILY BRETT Administration Heparin Sodium (Porcine) 5,000 unit 10/16/24 08:45 10/16/24 09:04 Heparin 5,000 Unit/Ml Inj 1 Ml SUBCUT 5,000 unit Q12H BRETT Administration Sodium Chloride 1,000 mls @ 100 mls/hr 10/15/24 20:45 10/16/24 09:18 Sodium Chloride 0.9% IV 100 mls/hr .Q10H BRETT Administration Ondansetron HCl 4 mg 10/15/24 18:56 10/16/24 05:33 Ondansetron 2 Mg/Ml Sdv 2 Ml IVP 4 mg Q6H PRN Administration NAUSEA AND VOMITING Pantoprazole Sodium 40 mg 10/15/24 20:45 10/16/24 09:[address] 40 Mg Tablet PO 40 mg BID BRETT Administration Thiamine Mononitrate 100 mg 10/16/24 09:00 10/16/24 09:04 Thiamine 100 Mg Tablet PO 100 mg DAILY BRETT Administration PFSH Acute PFSH: Medical History (Updated 10/16/24 @ 09:08 by Nella Knight MD) Tachycardia Diabetes Deep vein thrombosis (DVT) during Chronic anticoagulation Squamous cell carcinoma of anal canal Diabetes mellitus End-stage renal disease Surgical History Status post surgery (05/19/20) Removal of peritoneal dialysis catheter Port-A-Cath in place S/P hemodialysis catheter insertion (01/09/20) Removed 11/18/2020 Peritoneal dialysis status H/O colonoscopy H/O hand surgery History of hip surgery History of hysterectomy Family History Other Cancer Diabetes Denies family history of Anesthesia complication Bleeding disorder Social History Smoking and tobacco/nicotine status: current every day tobacco/nicotine user Alcohol intake: never Substance/Drug Use: never Household members: family Marital status: Single Current occupational status: disabled Vitals/I&O/Wt Last Vital Signs Temp 98.2 F 10/16/24 08:32 Pulse 101 H 10/16/24 08:32 Resp 16 10/16/24 08:32 BP 166/72 10/16/24 08:32 Pulse Ox 94 10/16/24 08:51 O2 Del Method Room Air 10/16/24 08:51 10/15/24 10/16/24 10/16/24 22:59 06:59 14:59 Intake Total 160 / 160 1000 / 1000 Balance 160 / 160 1000 / 1000 Weight last 48 hrs Weight 67.54 kg Weight 72.575 kg Physical Exam Narrative: awake , alert , no distress PEERLA S1S2 RRR per report Lungs clear per report Abd , soft , non tender per report No edema Data 10/15/24 12:53 10/15/24 12:53 Micro: Microbiology 10/15/24 19:32 Blood Culture - Preliminary Blood SPECIMEN COLLECTED 10/15/24 18:21 Blood Culture - Preliminary Blood SPECIMEN COLLECTED A&P Assessment and plan 1. ESRD (end stage renal disease) on dialysis: Plan: End-stage renal disease: Hypertension: Resume home medications Anemia: Hemoglobin at goal for ESRD History of depression, now with altered mental status, Diabetes type 2 Patient evaluated using audiovisual cart. Time spent 40 minutes. PDMP PDMP Reviewed: Not Reviewed Consult Attestations Medical Necessity Statement: per medicine Coding Level of Care Code Acute Code for Chg Fwd Diagnoses ESRD (end stage renal disease) on dialysis N18.6; Z99.2
--- OUTSIDE RECORDS SUMMARY | 2024-10-16 12:32 | XMS_ITS | Encounter Summary ---
Author Organization [facility] Address [address] [address] Phone Care Team Providers Care Commercial Driver'S License Driver Name Role Phone Herber Hussein MD Primary Care Provider [phone] Reason for Visit * Reason Comments Med Refill Encounter Details Date Type Department Care Team (Late st Contact Info) Description 02/21/2024 [facility]ill [facility] [address] [address] Bee Chavarria MD [address] [address] Social History Tobacco Use Types Packs/Day [...] on filedocumented in this encounter Care Teams Commercial Driver'S License Driver Relationship Specialty Start Date End Date Herber Hussein MD [address] [place] [address] PCP - General Family Medicine 07/14/18 documented as of this encounter
--- OUTSIDE RECORDS SUMMARY | 2024-10-16 12:32 | XMS_ITS | Encounter Summary ---
Author Organization [facility] Address [address] [place] [address] Phone Care Team Providers Care Reverberatory Furnace Operator Name Role Phone Herber Hussein MD Primary Care Provider [phone] Encounter Details Date Type Department Care Team (Late st Contact Info) Description 10/10/2024 Treatment [facility] [address] [place] [address] Bee Chavarria MD [address] [place] [address] End stage renal disease; Dependence [...] Bharati Anthony, 1975, 49y, F Dialysis Location: [facility] Attending Drilling Engineer: Bee Chavarria Service Date: 10/10/2024 Service Provider: [...] TRANSPLANT Comments: She has received paperwork from [facility] for transplant. She has now decided again [...] dialysis documented in this encounter Care Teams Reverberatory Furnace Operator Relationship Specialty Start Date End Date Herber Hussein MD [address] [place] [address] PCP - General Family Medicine 07/14/18 documented as of this encounter
--- OUTSIDE RECORDS SUMMARY | 2024-10-16 12:32 | XMS_ITS | Encounter Summary ---
Author Organization [facility] Address [address] [place] [address] Phone Care Team Providers Care Farmhand Name Role Phone Herber Hussien MD Primary Care Provider [phone] Reason for Visit * Reason Comments Med Refill Encounter Details Date Type Department Care Team (Late st Contact Info) Description 02/08/2024 Refill [facility] [address] [place] [address] Bee Chavarria MD [address] [place] [address] Social History Tobacco Use Types [...] (02/08/2024) Hemoglobin 8.9(L) 12.0 - 16.0 g/dL [facility] Hemoglobin x 3 26.7(L) 36.0 - 48.0 % [facility] 02/08/2024 02/09/2024 12: 25 PM WOOD CABINET FINISHER Narrative [facility] - 02/09/2024 Unless otherwise specified, test(s) performed at: [facility], [address] [place], [place] [id number] RADIO COMMENTATOR: Michael Knox M.D. For any questions, please call customer service at FREQUENCY:OTHER Resulting Agency Comment Specimen source: Blood us Bee Chavarria MD LAB BLOOD ORDERABLES Final Re sult [facility] See order comments or contact performing lab Unknown, [place] documented in this encounter Visit Diagnoses Not on filedocumented in this encounter Care Teams Farmhand Relationship Specialty Start Date End Date Herber Hussein MD [address] [place] [address] PCP - General Family Medicine 07/14/18 documented as of this encounter
--- OUTSIDE RECORDS SUMMARY | 2024-10-16 12:32 | XMS_ITS | Encounter Summary ---
Author Organization [facility] Address [address] [place] [address] Phone Care Team Providers Care Tire Technician Name Role Phone Herber Hussein MD Primary Care Provider Encounter Details Date Type Department Care Team (Late st Contact Info) Description 10/10/2024 Orders Only [facility] [address] [place] [address] Bee Chavarria MD [address] [place] [address] Social History Tobacco Use Types [...] x 3 32.4(L) 36.0 - 48.0 % [facility] 10/10/2024 10/11/2024 9:0 7 AM CDT Narrative ALISSA - 10/11/2024 Unless otherwise specified, test(s) performed at: [facility], [address] [place] [address] TILE TRIMMER: Michael Knox M.D. For any questions, please call customer service at FREQUENCY:OTHER Resulting Agency Comment Specimen source: Blood us Bee Chavarria MD LAB BLOOD ORDERABLES Final Re sult [facility] See order comments or contact performing lab Unknown, [place] documented in this encounter Visit Diagnoses Not on filedocumented in this encounter Care Teams Tire Technician Relationship Specialty Start Date End Date Herber Hussein MD [address] [place] [address] PCP - General Family Medicine 07/14/18 documented as of this encounter
--- OUTSIDE RECORDS SUMMARY | 2024-10-16 12:33 | XMS_ITS | Encounter Summary ---
Author Organization [facility] Address [address] [facility] [address] [place] [address] Phone Care Team Providers Care Pt Skilled Name Role Phone Herber Hussein MD Primary Care Provider [phone] Encounter Details Date Type Department Care Team (Late st Contact Info) Description 09/29/2018 Orders Only [email or web address] [address] [place] [address] Tl Lawson NP Chronic kidney [...] (HCC) documented in this encounter Care Teams Pt Skilled Relationship Specialty Start Date End Date Herber Hussein MD [address] [place] [address] PCP - General Family Medicine 07/14/18 documented as of this encounter
--- OUTSIDE RECORDS SUMMARY | 2024-10-16 12:33 | XMS_ITS | Encounter Summary ---
Author Organization [facility] Address [address] [place] [address] Phone Care Team Providers Care Manufacturing Maintenance Technician Name Role Phone Herber Hussein MD Primary Care Provider [phone] Reason for Visit * Reason Comments Med Refill Encounter Details Date Type Department Care Team (Late st Contact Info) Description 01/30/2021 Refill [facility] [address] [place] [address] Mohsen Mann MD [address] [place] [address] Social History Tobacco Use Types [...] on filedocumented in this encounter Care Teams Manufacturing Maintenance Technician Relationship Specialty Start Date End Date Herber Hussein MD [address] [place] [address] PCP - General Family Medicine 07/14/18 documented as of this encounter
--- OUTSIDE RECORDS SUMMARY | 2024-10-16 12:33 | XMS_ITS | Encounter Summary ---
Author Organization [facility] Address [address] [place] [address] Phone Care Team Providers Care Pug Mill Operator Helper Name Role Phone Herber Hussein MD Primary Care Provider [phone] Reason for Visit * Reason Comments Med Refill Encounter Details Date Type Department Care Team (Late st Contact Info) Description 06/23/2024 Refill [facility] [address] [place] [address] Bee Chavarria MD [address] [place] [address] Social History Tobacco Use Types [...] on filedocumented in this encounter Care Teams Pug Mill Operator Helper Relationship Specialty Start Date End Date Herber Hussein MD [address] [place] [address] PCP - General Family Medicine 07/14/18 documented as of this encounter
--- OUTSIDE RECORDS SUMMARY | 2024-10-16 12:33 | XMS_ITS | Encounter Summary ---
Author Organization [facility] Address [address] [facility] [address] [place] [address] Phone Care Team Providers Care Textile Machine Mechanic Name Role Phone Herber Hussein MD Primary Care Provider [phone] Encounter Details Date Type Department Care Team (Late st Contact Info) Description 08/25/2018 Orders Only [facility] [address] [place] [address] Tl Lawson NP Chronic kidney [...] (HCC) documented in this encounter Care Teams Textile Machine Mechanic Relationship Specialty Start Date End Date Herber Hussein MD [address] [place] [address] PCP - General Family Medicine 07/14/18 documented as of this encounter
--- OUTSIDE RECORDS SUMMARY | 2024-10-16 12:33 | XMS_ITS | Encounter Summary ---
Author Organization [facility] Address [address] [place] [address] Phone Care Team Providers Care Tearer Press Clipping Name Role Phone Herber Hussein MD Primary Care Provider [phone] Reason for Visit * Reason Comments Med Refill Encounter Details Date Type Department Care Team (Late st Contact Info) Description 10/29/2020 Refill [facility] [address] [place] [address] Mohsen Mann MD [address] [place] [address] Social History Tobacco Use Types [...] on filedocumented in this encounter Care Teams Tearer Press Clipping Relationship Specialty Start Date End Date Herber Hussein MD [address] [place] [address] PCP - General Family Medicine 07/14/18 documented as of this encounter
--- OUTSIDE RECORDS SUMMARY | 2024-10-16 12:33 | XMS_ITS | Clinical Summary ---
Author Organization [facility] Address [address] [place] [address] Care Team Providers Care Sustainability Coach Name Role Phone Herber Hussein MD Primary Care Provider [phone] Allergies Active Allergy Reactions Criticality Noted Date Comments Adhesive Tape 03/31/2018 Other reaction(s): Other (See Comments) blister Cephalexin Rash Medium 05/24/2018 Cephalosporins Rash Low 04/01/2017 Tolerated zosyn, unasyn Latex Rash Medium 05/24/2018 Medications Vit-Fe Fumarate-FA ( VITAMIN PO) Take 1 tablet by mouth 1 (one) time each day Active ergocalciferol (DRISDOL) 58878 units capsule Take 1 capsule by mouth [...] (01/11/2022): Added automatically from request for surgery [id number] Anemia in chronic kidney disease 10/10/2018 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 05/25/2018 Acute nontraumatic kidney injury 05/25/2018 Essential hypertension 05/25/2018 Type 2 diabetes mellitus 05/25/2018 IgA nephropathy 05/25/2018 Thromboembolism of vein 06/12/2017 Tobacco use 04/26/2017 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 Methamphetamine abuse 04/01/2017 Splenic infarction 04/01/2017 Encounters Date Type Department Care Team Description 10/10/2024 [facility] [address] [place] [address] Bee Chavarria MD 10/10/2024 Treatment [facility] [address] [place] [address] Bee Chavarria MD End stage renal disease; Dependence on renal dialysis 10/05/2024 Orders Only [facility] [address] [place] [address] Bee Chavarria MD 10/05/2024 Documentation Only [facility] [address] [place] [address] Daisy Lindsay NP 10/04/2024 [facility]phone [facility], [facility] [address] [place] [address] Yuliana Maradiaga NP 09/26/2024 Orders [facility], [facility] [address] [place] [address] Bee Chavarria MD 09/26/[address] [place] [address], [facility] [address] [place] [address] Daisy Lindsay NP End stage renal disease; Dependence on renal dialysis 09/19/2024 Orders [facility], [facility] [address] [place] [address] Bee Chavarria MD 09/19/[address] [place] [address], [facility] [address] [place] [address] Daisy Lindsay NP End stage renal disease; Dependence on renal dialysis 09/12/2024 Orders [facility], [facility] [address] [place] [address] Bee Chavarria MD 09/10/[address] [place] [address], [facility] [address] [place] [address] Ana Viramontes NP End stage renal disease; Dependence on renal dialysis 09/05/2024 Orders [facility], [facility] [address] [place] [address] Bee Chavarria MD 09/05/[address] [place], [place] [address]rology [facility], [facility] [address] [place] [address] Bee Chavarria MD End stage renal disease; Dependence on renal dialysis 08/29/2024 Orders Only [facility], [facility] [address] [place] [address] Bee Chavarria MD 08/27/2024 [facility] [address] [place] [address] Ana Viramontes NP End stage renal disease; Dependence on renal dialysis 08/24/2024 Orders [facility], [facility] [address] [place] [address] Bee Chavarria MD 08/20/[address] [facility], [facility] [address] [place] [address] Ana Viramontes NP End stage renal disease; Dependence on renal dialysis 08/17/2024 Orders [facility], [facility] [address] [place] [address] Bee Chavarria MD 08/15/2024 Orders Only [facility], [facility] [address] [place] [address] Bee Chavarria MD 08/15/[address] [facility], [facility] [address] [place] [address] Bee Chavarria MD End stage renal disease; Dependence on renal dialysis 08/08/2024 Orders Only [facility], [facility] [address] [place] [address] Bee Chavarria MD 08/06/2024 Orders Only [facility], [facility] [address] [place] [address] Bee Chavarria MD 08/06/2024 Treatment [facility], [facility] [address] [place] [address] Daisy Lindsay NP End stage renal disease; Dependence on renal dialysis 08/01/2024 Orders Only [facility], [facility] [address] [place] [address] Bee Chavarria MD 07/30/2024 Treatment [facility], [facility] [address] [place] [address] Ana Viramontes NP End stage renal disease; Dependence on renal dialysis 07/27/2024 Orders Only [facility], [facility] [address] [place] [address] Bee Chavarria MD 07/25/2024 Orders Only [facility], [facility] [address] [place] [address] Bee Chavarria MD 07/23/2024 [facility] [address] [place] [address] Daisy Lindsay NP End stage renal disease; Dependence on renal dialysis 07/18/2024 Orders Only [facility], [facility] [address] [place] [address] Bee Chavarria MD from Last [...] x 3 32.4(L) 36.0 - 48.0 % [facility] 10/10/2024 10/11/2024 9:0 7 AM CDT Narrative [facility] - 10/11/2024 Unless otherwise specified, test(s) performed at: [facility], [address] [place] [address] BLASTING MINER: Michael Knox M.D. For any questions, please call customer service at FREQUENCY:OTHER Resulting Agency Comment Specimen source: Blood Bee Chavarria MD LAB BLOOD ORDERABLES Final Re sult Performing Organization Address City/[facility]/ZIP Co de Phone Number [facility] See order comments or contact performing lab Unknown, [place] * HD KINETICS (09/26/2024) Only the most recent of4 resultswithin the time period is included. % Urea Reduction 80 65 - 80 % [facility] 09/26/2024 09/27/2024 11: 55 AM CDT Narrative Resulting Agency Comment Specimen source: Plasma Bee Chavarria MD LAB BLOOD ORDERABLES Final Re sult [facility] See order comments or contact performing lab Unknown, [place] * POST CHEMISTRY (09/26/2024) Only the most recent of4 resultswithin the time period is included. BUN Post Dialysis 12 6 - 19 mg/dL [facility] 09/26/2024 09/27/2024 11: 55 AM CDT Narrative [facility] - 09/27/2024 Unless otherwise specified, test(s) performed at: [facility], [address] [place], [place] [id number] BLASTING MINER: Michael Knox M.D. For any questions, please call customer service at FREQUENCY:OTHER Resulting Agency Comment Specimen source: Plasma us Bee Chavarria MD LAB BLOOD ORDERABLES Final Re sult Performing Organization Address [facility]/ZIP Co de Phone Number [facility] See order comments or contact performing lab Unknown, [place] * (ABNORMAL) [facility] Chemistry (09/26/2024) Only the most recent of7 resultswithin the time period is included. Pathologist [facility] BUN 59(H) 6 - 19 mg/dL [facility] 09/26/2024 09/27/2024 12: 27 PM CDT Narrative [facility] - 09/27/2024 Unless otherwise specified, test(s) performed at: [facility], [address] [place] [address] BLASTING MINER: Michael Knox M.D. For any questions, please call customer service at FREQUENCY:OTHER Resulting Agency Comment Specimen source: Serum us Bee Chavarria MD LAB BLOOD ORDERABLES Final Re sult [facility] See order comments or contact performing lab Unknown, [place] * [facility] Results (09/26/2024) Only the most recent of4 resultswithin the time period is included. Pathologist [facility] eKt/V Gotch 1.30 [facility] spKt/V (Daugirdas II) 1.64 [facility] PCR 56.82 [facility] eNPCR 0.91 [facility] WSTDKT/V 1.6 [facility] nPCR_HD 1.00 [facility] eKdrt/V 1.30 [facility] spKt/V Gotch 1.61 [facility] eKt/V (Tattersall) 1.36 [facility] 09/26/2024 09/26/2024 Aissatou Ordering Provider LAB BLOOD ORDERABLES Final Result [facility] Contact Performing lab Unknown, [place] * Blood culture (07/27/2024) Culture Result See below [facility] Comment: No Aerobic or Anaerobic Growth after 5 Days of Incubation. 07/27/2024 07/28/2024 10: 10 AM CDT Narrative [facility] - 08/02/2024 Unless otherwise specified, test(s) performed at: [facility], [address] [place] [address] BLASTING MINER: Michael Knox M.D. For any questions, please call customer service at FREQUENCY:OTHER Resulting Agency Comment Specimen source: Blood/Dialysis Bloodline Bee Chavarria MD LAB MICROBIOLOGY - GENERAL OR DERABLES Final Result Performing Organization Address City/[facility]/ZIP Co de Phone Number [facility] See order comments or contact performing lab Unknown, [place] * Blood culture (07/27/2024) Culture, Blood See below [facility] Comment: No Aerobic or Anaerobic Growth after 5 Days of Incubation. 07/27/2024 07/28/2024 10: 10 AM CDT Narrative [facility] - 08/02/2024 Unless otherwise specified, test(s) performed at: [facility], [address] [place] [address] BLASTING MINER: Michael Knox M.D. For any questions, please call customer service at FREQUENCY:OTHER Resulting Agency Comment Specimen source: Blood/Dialysis Bloodline Bee Chavarria MD LAB MICROBIOLOGY - GENERAL OR DERABLES Final Result [facility] See order comments or contact performing lab Unknown, [place] * (ABNORMAL) SPECIAL CHEMISTRY (02/22/2024) Hemoglobin A1C 6.1(H) 4.8 - 5.9 % [facility] 02/22/2024 02/23/2024 11: 16 AM MANAGER OF LEARNING Narrative [facility] - 02/23/2024 Unless otherwise specified, test(s) performed at: [facility], [address] [place] [address] BLASTING MINER: Michael Knox M.D. For any questions, please call customer service at FREQUENCY:MONTHLY Resulting Agency Comment Specimen source: Blood Bee Chavarria MD LAB BLOOD BANK TEST ORDERABLE S Final Result Performing Organization Address City/[facility]/ZIP Co de Phone Number [facility] See order comments or contact performing lab Unknown, [place] from Last 3 Months or Most Recently Relevant to Health Maintenance Insurance Medicaid [place] ([id number]) Medicare Care Teams Sustainability Coach Relationship Specialty Start Date End Date Herber Hussein MD [address] [place] [address] PCP - General Family Medicine 07/14/18
--- OUTSIDE RECORDS SUMMARY | 2024-10-16 12:33 | XMS_ITS | Encounter Summary ---
Author Organization [facility] [employer] Address [address] [place] [address] Phone Care Team Providers Care Ethylene Plant Operator Name Role Phone Herber Hussein MD Primary Care Provider [phone] Encounter Details Date Type Department Care Team (Late st Contact Info) Description 11/08/2018 Orders Only [facility] [address] [place] [address] Sherry Lau MA [address] [place] [address] Chronic kidney disease stage 4 [...] Agency Comment Performing Organization Information: Site ID: [id number] Name: [id number] Address: [address] [facility] [place] [address] Director: Jadiel Winslow D.O., MPH us Mohsen [...] Performing Organization Information: Site ID: [id number] Name: [facility] Address: [address] [place] [id number] Director: Jadiel Winslow D.O., MPH Mohsen Mann [...] Performing Organization Information: Site ID: RIK Name: [facility] [employer] Address: [address] [address] Director: Jadiel Winslow D.O., MPH us Mohsen Mann MD LAB BLOOD ORDERABLES Fi nal Result CYNDIE STJuan AGEE documented in this encounter Visit Diagnoses Diagnosis Chronic kidney disease stage 4 (HCC) Essential hypertension documented in this encounter Care Teams Ethylene Plant Operator Relationship Specialty Start Date End Date Herber Hussein MD [address] [place] [address] PCP - General Family Medicine 07/14/18 documented as of this encounter
--- OUTSIDE RECORDS SUMMARY | 2024-10-16 12:33 | XMS_ITS | Encounter Summary ---
Author Organization [facility] Address [address] [place] [address] Phone Care Team Providers Care Quality Control Lab Technician Name Role Phone Herber Hussein MD Primary Care Provider [phone] Encounter Details Date Type Department Care Team (Late st Contact Info) Description 08/24/2018 Orders Only [facility] [address] [place] [address] Mohsen Mann MD [address] [facility] [address] [place] [address] Chronic kidney disease stage 4 [...] (HCC) documented in this encounter Care Teams Quality Control Lab Technician Relationship Specialty Start Date End Date Herber Hussein MD [address] [place] [address] PCP - General Family Medicine 07/14/18 documented as of this encounter
--- OUTSIDE RECORDS SUMMARY | 2024-10-16 12:33 | XMS_ITS | Encounter Summary ---
Author Organization [facility] [employer] [facility] [employer] [facility] Address [address] [facility] [address] [place] [address] Phone Care Team Providers Care Shoe Folder Name Role Phone Herber Hussein MD Primary Care Provider [phone] Encounter Details Date Type Department Care Team (Late st Contact Info) Description 12/11/2018 Orders Only [facility] [employer] [address] [place] [address] Tl Lawson, [place] Chronic kidney [...] HEPATITIS C ANTIBODY Routine 04/30/2019 10:54 AM MICROWAVE OVEN ASSEMBLER HEPATITIS A ANTIBODY, IGM Routine 04/30/2019 10:54 AM MICROWAVE OVEN ASSEMBLER HEPATITIS B CORE ANTIBODY, IGM Routine 04/30/2019 10:54 AM MICROWAVE OVEN ASSEMBLER HEPATITIS B SURFACE ANTIGEN Routine 04/30/2019 10:54 AM MICROWAVE OVEN ASSEMBLER RENAL FUNCTION PANEL Routine 04/30/2019 10:54 AM MICROWAVE OVEN ASSEMBLER PROTEIN / CREATININE RATIO, URINE Routine 04/11/2019 1:09 PM MICROWAVE OVEN ASSEMBLER CBC AND DIFFERENTIAL Routine 04/11/2019 1:09 PM MICROWAVE OVEN ASSEMBLER RENAL FUNCTION PANEL Routine 04/11/2019 1:09 PM MICROWAVE OVEN ASSEMBLER PROTEIN / CREATININE RATIO, URINE Routine 12/06/2018 [...] (ABNORMAL) Renal Function Panel (04/30/2019 10:54 AM MICROWAVE OVEN ASSEMBLER) Glucose 268(H) 65 - 99 mg/dL [facility] [...] 5.1 g/dL [facility] 04/30/2019 10:5 4 AM MICROWAVE OVEN ASSEMBLER 04/30/2019 10:55 AM MICROWAVE OVEN ASSEMBLER Narrative Resulting Agency Comment Performing Organization Information: Site ID: [place] Name: [facility] Address: [address] [address] Director: Jadiel Winslow D.O., MPH Mohsen Mann MD LAB BLOOD ORDERABLES Fi nal Result [facility] * Hepatitis C antibody (04/30/2019 10:54 AM MICROWAVE OVEN ASSEMBLER) Hepatitis C Antibody NON-REACTI VE NON-REACT JUICE [facility] Signal/Cutoff 0.08 <1.00 [facility] Comment: HCV antibody was non-reactive. There is no laboratory evidence of HCV infection. In most cases, no further action is required. However, if recent HCV exposure is suspected, a test for HCV RNA (test code 20003) is suggested. For additional information please refer to http://education.Just Fab/faq/OGT94l6 (This link is being provided for informational/ educational purposes only.) 04/30/2019 10:5 4 AM MICROWAVE OVEN ASSEMBLER 04/30/2019 10:55 AM MICROWAVE OVEN ASSEMBLER Narrative Resulting Agency Comment Performing Organization Information: Site ID: [place] Name: [facility] Address: [address] [place] [address] Director: Jadiel Winslow D.O., MPH Mohsen Mann MD LAB BLOOD ORDERABLES Fi nal Result Performing Organization Address [facility] de Phone Number [facility] * Hepatitis B core antibody, IgM (04/30/2019 10:54 AM MICROWAVE OVEN ASSEMBLER) Hep B Core IgM NON-REACTI VE NON-REACTI VE [facility] 04/30/2019 10:5 4 AM MICROWAVE OVEN ASSEMBLER 04/30/2019 10:55 AM MICROWAVE OVEN ASSEMBLER Narrative Resulting Agency Comment Performing Organization Information: Site ID: [place] Name: [facility] Address: [address] [place] [address] Director: Jadiel Winslow D.O., MPH Mohsen Mann MD LAB BLOOD ORDERABLES Fi nal Result Performing Organization Address [facility] Phone Number [facility] * Hepatitis B Surface Antigen (04/30/2019 10:54 AM MICROWAVE OVEN ASSEMBLER) Hep B Surface Antigen NON-REACTIVE NON-REACT JUICE [facility] Confirmation CANCELED [facility] Comment:Result canceled by kavon lacy. 04/30/2019 10:5 4 AM MICROWAVE OVEN ASSEMBLER 04/30/2019 10:55 AM MICROWAVE OVEN ASSEMBLER Narrative Resulting Agency Comment Performing Organization Information: Site ID: [place] Name: [facility] Address: [address] [place] [address] Director: Jadiel Winslow D.O., MPH Mohsen Mann MD LAB BLOOD ORDERABLES Fi nal Result Performing Organization Address [facility] de Phone Number [facility] * Hepatitis A antibody, IgM (04/30/2019 10:54 AM MICROWAVE OVEN ASSEMBLER) Hep A IgM NON-REACTI VE NON-REACTI VE [facility] Comment: For additional information, please refer to http://education.Banyan.Kirondo/faq/QXP122 (This link is being provided for informational/ educational purposes only.) 04/30/2019 10:5 4 AM MICROWAVE OVEN ASSEMBLER 04/30/2019 10:55 AM MICROWAVE OVEN ASSEMBLER Narrative Resulting Agency Comment Performing Organization Information: Site ID: [place] Name: [facility] Address: [address] [place] [address] Director: Jadiel Winslow D.O. MPH Mohsen Mann MD LAB BLOOD ORDERABLES Fi nal Result Performing Organization Address [facility] de Phone Number [facility] * (ABNORMAL) Protein, Total, Random Urine w/Creatinine (Protein/Creat Ratio) (04/11/2019 1:09 PM MICROWAVE OVEN ASSEMBLER) Creatinine, Ur 58 20 - 275 mg/dL [facility] Urine Protein/Creati nine Ratio 3,397(H) 21 - 161 mg/g creat [facility] Protein/Creati nine Ratio, Urine 3.397(H) 0.021 - 0.161 mg/mg creat [facility] Protein Urine Random 197(H) 5 - 24 mg/dL [facility] 04/11/2019 1:09 PM MICROWAVE OVEN ASSEMBLER 04/11/2019 1:10 PM MICROWAVE OVEN ASSEMBLER Narrative Resulting Agency Comment Performing Organization Information: Site ID: [place] Name: [facility] Address: [address] [place] [phone] Director: Jadiel Winslow D.O. MPH Yuliana Maradiaga NP LAB URINE ORDERABLES Final Resul t Performing Organization Address [facility] de Phone Number [facility] * (ABNORMAL) CBC and Differential (04/11/2019 1:09 PM MICROWAVE OVEN ASSEMBLER) WBC 9.3 3.8 - 10.8 Thousand/ uL [...] by t he ancillary. 04/11/2019 1:09 PM MICROWAVE OVEN ASSEMBLER 04/11/2019 1:10 PM MICROWAVE OVEN ASSEMBLER Narrative Resulting Agency Comment Performing Organization Information: Site ID: [place] Name: [facility] Address: [address] [place] [address] Director: Jadiel Winslow D.O., MPH Yuliana Maradiaga POLITICAL SCIENTIST LAB BLOOD ORDERABLES Final Resul t Performing Organization Address City/[facility]/ZIP Co de Phone Number [facility] * (ABNORMAL) Renal Function Panel (04/11/2019 1:09 PM MICROWAVE OVEN ASSEMBLER) Glucose 228(H) 65 - 99 mg/dL [facility] [...] - 5.1 g/dL [facility] 04/11/2019 1:09 PM MICROWAVE OVEN ASSEMBLER 04/11/2019 1:10 PM MICROWAVE OVEN ASSEMBLER Narrative Resulting Agency Comment Performing Organization Information: Site ID: [place] Name: [facility] Address: [facility] [place] [address] Director: Jadiel Winslow D.O., MPH us Yuliana Maradiaga NP LAB BLOOD ORDERABLES Final Resul t Performing Organization Address City/[facility]/ZIP Co de Phone Number [facility] [...] D, (D2,D3), LC/MS/MS is recommended: order code [id number] (patients >2yrs). For more information on this test, go to: http://education.Just Fab/faq/NVS884 (This link is being provided for informational/educational purposes only.) 12/06/2018 8:34 AM CDT 12/06/2018 8:35 AM CDT Narrative Resulting Agency Comment Performing Organization Information: Site ID: [place] Name: [facility] Address: [address] [place] [phone] Director: Jadiel Winslow D.O., MPH Tl Lawson [...] Performing Organization Information: Site ID: [place] Name: [facility] Address: [address] [place] [address] Director: Jadiel Winslow D.O., MPH Tl L Renny POLITICAL SCIENTIST LAB BLOOD ORDERABLES Final Result Performing Organization Address [facility] Co de Phone Number [facility] [...] Performing Organization Information: Site ID: [place] Name: [facility] [employer] Address: [address] [facility] [place] [address] Director: Jadiel Winslow D.O., MPH Tl Lawson POLITICAL SCIENTIST LAB URINE ORDERABLES Final Result Performing Organization Address [facility] de Phone Number [facility] STL [...] Performing Organization Information: Site ID: [place] Name: [employer] Address: [address] [facility] [place] [address] Director: Jadiel Winslow D.O. MPH Tl Lawson POLITICAL SCIENTIST LAB BLOOD ORDERABLES Final Result Performing Organization Address City/[facility]/ZIP Co de Phone Number CYNDIE STJuan [facility] [...] Performing Organization Information: Site ID: [place] Name: [facility] Address: [address] [address] Director: Jadiel Winslow D.O., MPH Tl Lawson POLITICAL SCIENTIST LAB BLOOD ORDERABLES Final Result Performing Organization Address City/[facility]/ZIP Co de Phone Number CYNDIE STJuan [facility] documented in this encounter Visit Diagnoses Diagnosis Chronic kidney disease stage 4 (HCC) documented in this encounter Care Teams Shoe Folder Relationship Specialty Start Date End Date Herber Hussein MD [address] [place] [address] PCP - General Family Medicine 07/14/18 documented as of this encounter
--- OUTSIDE RECORDS SUMMARY | 2024-10-16 12:33 | XMS_ITS | Encounter Summary ---
Author Organization [facility] Address [address] [place] [address] Phone Care Team Providers Care Criminal Researcher Name Role Phone Herber Hussein MD Primary Care Provider [phone] Reason for Visit * Reason Comments Med Refill Encounter Details Date Type Department Care Team (Late st Contact Info) Description 05/06/2020 [facility] [address] [place] [address] Mohsen Mann MD [address] [place] [address] Social History Tobacco Use Types [...] on filedocumented in this encounter Care Teams Criminal Researcher Relationship Specialty Start Date End Date Herber Hussein MD [address] [place] [address] PCP - General Family Medicine 07/14/18 documented as of this encounter
--- OUTSIDE RECORDS SUMMARY | 2024-10-16 12:33 | XMS_ITS | Encounter Summary ---
Author Organization [place] [facility] Address [address] [place] [address] Phone Care Team Providers Care Railroad Firer Name Role Phone Herber Hussein MD Primary Care Provider [phone] Reason for Visit * Reason Comments Med Refill Encounter Details Date Type Department Care Team (Late st Contact Info) Description 08/21/2021 Refill [facility] [address] [place] [address] Mohsen Mann MD [address] [place] [address] Social History Tobacco Use Types [...] on filedocumented in this encounter Care Teams Railroad Firer Relationship Specialty Start Date End Date Herber Hussein MD [address] [place] [address] PCP - General Family Medicine 07/14/18 documented as of this encounter
--- OUTSIDE RECORDS SUMMARY | 2024-10-16 12:33 | XMS_ITS | Encounter Summary ---
Author Organization [place] [facility] Address [address] [place] [address] Phone Care Team Providers Care Software Program Manager Name Role Phone Herber Hussein MD Primary Care Provider [phone] Reason for Visit * Reason Comments Med Refill Encounter Details Date Type Department Care Team (Late st Contact Info) Description 05/30/2020 Refill [facility] [address] [place] [address] Mohsen Mann MD [address] [place] [address] Social History Tobacco Use Types [...] on filedocumented in this encounter Care Teams Software Program Manager Relationship Specialty Start Date End Date Herber Hussein MD [address] [place] [address] PCP - General Family Medicine 07/14/18 documented as of this encounter
--- OUTSIDE RECORDS SUMMARY | 2024-10-16 12:33 | XMS_ITS | Encounter Summary ---
Author Organization [place] [facility] [employer] Address [address] [place] [address] Phone Care Team Providers Care Operational Review Sergeant Name Role Phone Herber Hussein MD Primary Care Provider [phone] Reason for Visit * Reason Comments Med Refill Encounter Details Date Type Department Care Team (Late st Contact Info) Description 11/23/2021 Refill [facility] [address] [place] [address] Mohsen Mann MD [address] [place] [address] Social History Tobacco Use Types [...] on filedocumented in this encounter Care Teams Operational Review Sergeant Relationship Specialty Start Date End Date Herber Hussein MD [address] [place] [address] PCP - General Family Medicine 07/14/18 documented as of this encounter
--- OUTSIDE RECORDS SUMMARY | 2024-10-16 12:33 | XMS_ITS | Encounter Summary ---
Author Organization [facility] Address [address] [place] [address] Phone Care Team Providers Care Dining Car Waiter/Waitress Name Role Phone Herber Hussein MD Primary Care Provider [phone] Reason for Visit * Reason Comments Med Refill Encounter Details Date Type Department Care Team (Late st Contact Info) Description 11/20/2020 Refill [facility] [address] [place] [address] Mohsen Mann MD [address] [place] [address] Social History Tobacco Use Types [...] on filedocumented in this encounter Care Teams Dining Car Waiter/Waitress Relationship Specialty Start Date End Date Herber Hussein MD [address] [place] [address] PCP - General Family Medicine 07/14/18 documented as of this encounter
--- NOTE | 2024-10-16 14:42 | PM.PN ---
Subjective Subjective: Seen this morning. Patient states that she has been vomiting for the last 1 month. She has been on semaglutide for longer than that. Probably 1 year she states. Denies any drug use or alcohol use. She states at times the vomiting is related to food and at times it happens by itself. She is completely coherent alert oriented x 4 this morning. She states that she remembers when she was driving onto oncoming traffic yesterday and the police was following her. Eventually spikes drip had to be used to stop her car. She said she also remembers when the police commanding officer was trying to get her into his truck and she was handcuffed. She says she remembers that she was crying a lot yesterday and upset. Does not remember particularly events in the ER however states that she remembers seeing her mom last night in the ER as well. She states that her mom wanted her to go to [place] however it took some convincing to stay here. Denies any abdominal pain chest pain shortness of breath at this time. Thiamine level is pending at this time. Vitamin B12 591. Troponin delta -2.53 at 6 hours. 3+ protein in urine. Labs from this morning are pending. RPR pending Herpes pending Headache is resolved as well. Patient is somewhat of a poor historian however tends to remember events from yesterday. He stated that she went to dialysis and was driving back however accidentally went to the wrong side of the road and Driving because she thought she was going to get to the end and turn right to get to the correct side however then the police ended up following her. Yesterday patient could not remember all of the above. We are still awaiting records from [place]. Vitals/I&O/Wt Last Vital Signs Temp 98.6 F 10/16/24 12:00 Pulse 106 H 10/16/24 12:00 Resp 16 10/16/24 12:00 BP 173/76 10/16/24 12:00 Pulse Ox 98 10/16/24 12:00 O2 Del Method Room Air 10/16/24 12:00 10/15/24 10/16/24 10/16/24 22:59 06:59 14:59 Intake Total 160 / 160 1000 / 1000 Balance 160 / 160 1000 / 1000 Weight last 48 hrs Weight 67.54 kg Weight 72.575 kg Physical Exam Narrative: General: Alert oriented x 3 HEENT: Normocephalic, atraumatic, EOMI, breathing room air. Cardio: Normal S1-S2, no gross murmurs Respiratory: Generally clear to auscultation good bilateral air entry no wheezes no rhonchi no crackles appreciated. GI: Abdomen soft, nontender, bowel sounds + Extremities: no edema, no cyanosis Neuro: Nonfocal Data 10/15/24 12:53 10/15/24 12:53 Micro: Microbiology 10/15/24 19:32 Blood Culture - Preliminary Blood SPECIMEN COLLECTED 10/15/24 18:21 Blood Culture - Preliminary Blood SPECIMEN COLLECTED A&P Assessment and plan 1. Major depressive disorder, recurrent: 2. Chronic kidney disease with end stage renal failure on dialysis: 3. ESRD (end stage renal disease) on dialysis: 4. Anemia: 5. Altered mental status: Plan: #Altered mental status/acute psychosis ? #End-stage renal disease on dialysis #History of anxiety, depression #Hypertension #Diabetes mellitus #Multifactorial anemia #History of renal cancer ? All workup in ER has been negative namely CT head, labs. Unclear etiology of patient's altered mental status at this time. Query encephalopathy viral? Will consult neurology for input. I will hold off on starting acyclovir at this time. ? Will check herpes, RPR, vitamin B12 ? Urine drug screen is negative ? Continue home amlodipine 10 daily ? Continue pantoprazole ? Continue sodium bicarbonate ? Consult nephrology for routine dialysis ? Low suspicion for meningitis as there is no neck stiffness no fever no signs of infection on labs. Also apparently she was driving back from dialysis and remembers she drove to dialysis this morning. ? Will consider MRI after neurology consultation. ? She does have a headache. Depacon given by ER. Continue to monitor at this time ? Continue on consistent carb diet ? Hold off on IV fluids at this time ? Will order alprazolam 0.25 twice daily as needed anxiety which is patient's home dose. ? Check blood cultures, urine culture ? Will monitor for observation. ? Will consider psych consult after discussion with neurology and after neuroassessment. - There is no family present at bedside at this time. ? Will request records from [facility] as she was recently hospitalized there. Full code DVT prophylax: Heparin SQ twice daily 10/16/2024 ?Patient has been having nausea vomiting for last 1 month along with diarrhea. ? She did have some workup done in [place]. We are waiting for records. ? Herpes RPR pending. ? Nephrology consulted for dialysis. She is Tuesday. ? Continue on IV fluids. ? I will order Ativan for severe nausea vomiting. Continue Reglan versus Zofran alternating. ? Altered mental status has completely resolved at this time. Patient is coherent able to provide a history and remembers events from yesterday. ? Thiamine deficiency suspected by neurology. Continue thiamine 100 mg daily. ? Check PT OT ? Await labs from today. ? Will discuss with neurology ? Suspicion of semaglutide associated nausea vomiting?. However patient has tolerated medicine in the past and has been on it for greater than a year she states. ? Unclear etiology of nausea vomiting. ? If not already complete we will consider MRI brain here. Will await review of records from [place]. Continue clear liquid diet. PDMP PDMP Reviewed: Not Reviewed Attestations Medical Necessity Statement*: Persistent nausea vomiting. Will review records from [place] prior to making decision to discharge patient. Continue to observe for now. Diagnoses Major depressive disorder, recurrent F33.9 Chronic kidney disease with end stage renal failure on dialysis N18.6; Z99.2 ESRD (end stage renal disease) on dialysis N18.6; Z99.2 Anemia D64.9 Altered mental status R41.82
[2024-10-16 15:35] LABS: Hematocrit 38.9 % (36-47); Hemoglobin 12.70 g/dL (11.27-16.99); Mean Corpuscular HGB Conc 32.6 g/dL (30-55); Mean Corpuscular Hemoglobin 33.5 pg (27-33); Mean Corpuscular Volume 102.6 fl (85-98); Nucleated Red Blood Cells % 0 %; Platelet Count 152 10^3/cmm (157-399); Red Blood Count 3.79 10^6/uL (3.85-5.65); White Blood Count 6.43 10^3/uL (3.29-11.43)
[2024-10-16 15:56] LABS: Alanine Aminotransferase 15 U/L (0-33); Albumin Level 4.5 g/dL (3.5-5.2); Alkaline Phosphatase 67 U/L (35-105); Anion Gap 22.9 (5-19); Aspartate Amino Transferase 19 U/L (0-32); Blood Urea Nitrogen 17 mg/dL (6-20); Calcium 9.5 mg/dL (8.5-10.5); Carbon Dioxide 21 mmol/L (22-29); Chloride 100 mmol/L (98-107); Creatinine Clr Calc Pharmacy 17.7268; Globulin 3.1 g/dL (1.3-4.6); Glucose 92 mg/dL (65-115); Magnesium 2.0 mg/dL (1.7-2.3); Osmolality Calculated 291 mOsm/kg (285-295); Potassium 3.9 mmol/L (3.5-5.1); Sodium 140 mmol/L (136-145); Total Protein 7.6 g/dL (6.6-8.7)
[2024-10-16] MEDS: LORazepam 1 MG/0.5 ML injection 0.5 MG IVP (17:43)
[2024-10-16] MEDS: hyDRALAzine 20 mg/mL INJ 1 mL 10 MG IVP (19:53)
[2024-10-16] MEDS: morphine 4 mg/mL SDV 1 mL 2 MG IVP (21:34)
[2024-10-17] VITALS (7 sets, daily range): BP systolic 129–165; BP diastolic 67–86; PULSE 98–116; RESP 15–18; TEMP 36.4–37.1; O2SAT 93–96
[2024-10-17 05:18] LABS: Hematocrit 37.8 % (36-47); Hemoglobin 12.30 g/dL (11.27-16.99); Mean Corpuscular HGB Conc 32.5 g/dL (30-55); Mean Corpuscular Hemoglobin 33.5 pg (27-33); Mean Corpuscular Volume 103.0 fl (85-98); Nucleated Red Blood Cells % 0 %; Platelet Count 147 10^3/cmm (157-399); Red Blood Count 3.67 10^6/uL (3.85-5.65); White Blood Count 5.25 10^3/uL (3.29-11.43)
[2024-10-17 05:49] LABS: Alanine Aminotransferase 13 U/L (0-33); Albumin Level 4.3 g/dL (3.5-5.2); Alkaline Phosphatase 70 U/L (35-105); Anion Gap 22.9 (5-19); Aspartate Amino Transferase 16 U/L (0-32); Blood Urea Nitrogen 26 mg/dL (6-20); Calcium 9.5 mg/dL (8.5-10.5); Carbon Dioxide 22 mmol/L (22-29); Chloride 105 mmol/L (98-107); Creatinine Clr Calc Pharmacy 15.3224; Globulin 3.2 g/dL (1.3-4.6); Glucose 52 mg/dL (65-115); Magnesium 2.2 mg/dL (1.7-2.3); Osmolality Calculated 302 mOsm/kg (285-295); Potassium 4.9 mmol/L (3.5-5.1); Sodium 145 mmol/L (136-145); Total Protein 7.5 g/dL (6.6-8.7)
[2024-10-17] MEDS: heparin 5,000 unit/mL INJ 1 mL 5000 UNIT SUBCUT (08:31)
[2024-10-17] MEDS: dextrose 5%-sod chloride 0.9% 1,000 ML 75 ML IV (08:31)
--- NOTE | 2024-10-17 09:30 | P.DS_ITS ---
Discharge Providers Date of Admission: 10/15/24 17:00 Date of Discharge: October 17, 2024 Attending Provider at Admission: Daniela Brown MD Attending Provider at Discharge: Daniela Brown MD Primary Care Provider: Herber Hussein MD Diagnoses at Discharge Discharge Diagnosis 1. Major depressive disorder, recurrent: 2. Chronic kidney disease with end stage renal failure on dialysis: 3. ESRD (end stage renal disease) on dialysis: 4. Anemia, unspecified type: 5. Altered mental status: Reason for Visit Reason for Visit: [facility] Hospital Course Hospital Course Bharati Anthony is a 49 year old female with past medical history of anemia, multifactorial, prior anal cancer, end-stage renal disease on dialysis, diabetes, DVT, chronic anticoagulation, presented to the hospital today after being brought in by the police. Apparently patient was driving on the opposite side of the road onto oncoming traffic. The Police Department attempted to stop her however the drive turned into her pursuit for the police with multiple police vehicles involved. Apparently patient stopped at a stop sign and stoplight appropriately but would not washing machine loader and puller. Eventually the police were forced to use a spike strip to get her car to come to a stop and she was removed from the vehicle at gun point. She was then brought to the hospital. Patient does not remember any of the above events from today however does remember that she was driving home from dialysis. He states dialysis was completed. She complains of a headache at this time however other than that does not answer any questions appropriately. Appears to be completely confused. Does tell me she is in the hospital knows her name and date of however any question that is asked she answers something completely off topic. She was given a paper which was consent to request records from [place] however she started adjusting her position in bed and ultimately and eventually did not sign the consent form. She kept repeating I feel cold, I feel horrible. She was tearful. Earlier in the ER she was noted to be walking out of the bathroom with her pants by her ankles. I asked her if she was hungry and she stated she feels horrible. Patient is a very poor historian. She did let me examine her. Lungs are clear to auscultation abdomen nontender. No edema bilateral lower extremities. Appears disheveled tearful at this time. There is no neck stiffness she denies neck pain at this time. Denies a fever. Denies being sick recently. Workup in the ER essentially was negative. Lab test otherwise within normal limits no sign of infection no fever no leukocytosis. Talk screen is negative. CT head negative. No acute bleed. ABG slightly alkalotic. Patient hyperventilating. Potassium 3.4. No gross electrolyte abnormalities. Creatinine 2.2 however she is a dialysis patient. UA shows 3+ protein otherwise negative for possible UTI. Patient states that she has been vomiting for the last 1 month. She has been on semaglutide for longer than that. Probably 1 year she states. Denies any drug use or alcohol use. She states at times the vomiting is related to food and at times it happens by itself. She is completely coherent alert oriented x 4 this morning. She states that she remembers when she was driving onto oncoming traffic yesterday and the police was following her. Eventually spikes drip had to be used to stop her car. She said she also remembers when the loan review officer was trying to get her into his truck and she was handcuffed. She says she remembers that she was crying a lot yesterday and upset. Does not remember particularly events in the ER however states that she remembers seeing her mom last night in the ER as well. She states that her mom wanted her to go to [place] however it took some convincing to stay here. Denies any abdominal pain chest pain shortness of breath at this time. Thiamine level is pending at this time. Vitamin B12 591. Troponin delta -2.53 at 6 hours. 3+ protein in urine. Labs from this morning are pending. RPR pendingHerpes pending Headache is resolved as well. Patient is somewhat of a poor historian however tends to remember events from yesterday. He stated that she went to dialysis and was driving back however accidentally went to the wrong side of the road and Driving because she thought she was going to get to the end and turn right to get to the correct side however then the police ended up following her. Yesterday patient could not remember all of the above. We are still awaiting records from [place]. Pt was given thiamine and nausea/vomitting resolved after ativan administeration. She was able to tolerate a diet. Discussed with neurology and decision made to dc patient home with outpatient close f/u. Several requests for record sent to [facility]. DId advise her to hold ozempic till she sees pcp Physical Exam Narrative: General: Alert oriented x 3 HEENT: Normocephalic, atraumatic, EOMI, breathing room air. Cardio: Normal S1-S2, no gross murmurs Respiratory: Generally clear to auscultation good bilateral air entry no wheezes no rhonchi no crackles appreciated. GI: Abdomen soft, nontender, bowel sounds + Extremities: no edema, no cyanosis Neuro: Nonfocal Discharge Data Studies Completed and Pending Completed Studies During Hospitalization Category Date Time Status CT head wo con* [id number] Stat Cat Scan 10/15/24 13:51 Completed XR chest 1V portable [id number] Stat Exams 10/15/24 13:22 Completed Pending at discharge Category Date Time Status Blood Culture Stat Lab 10/15/24 19:32 Results C.Diff PCR (Lab) Routine Lab 10/16/24 01:55 Uncollected Herpes Simplex 1&2 IgG AB Routine Lab 10/15/24 13:06 Received Herpes Simplex Virus DNA Stat Lab 10/15/24 18:21 Received OVA and Parasites, Conc and PE Routine Lab 10/16/24 01:55 Uncollected RPR with Reflex to Titer Routine Lab 10/15/24 13:06 Received Stool Culture - Enteric [Salmonella / Shigella / Campy] Lab 10/16/24 01:55 Uncollected Routine Urine Culture Stat Lab 10/15/24 14:48 Received Vitamin B1 (Thiamine),Blood Routine Lab 10/15/24 19:32 Received Radiology Impressions Chest X-Ray 10/15/24 13:22 IMPRESSION: No acute cardiopulmonary abnormality. Head CT 10/15/24 13:51 IMPRESSION: 1. No evidence of intracranial hemorrhage or mass effect. 2. Mild paranasal sinusitis. 3. No acute intracranial findings. Laboratory Results WBC 5.25 10^3/uL (3.29-11.43) 10/17/24 05:05 RBC 3.67 10^6/uL (3.85-5.65) L 10/17/24 05:05 Hgb 12.30 g/dL (11.27-16.99) 10/17/24 05:05 Hct 37.8 % (36-47) 10/17/24 05:05 MCV 103.0 fl (85-98) H 10/17/24 05:05 MCH 33.5 pg (27-33) H 10/17/24 05:05 MCHC 32.5 g/dL (30-55) 10/17/24 05:05 RDW 15.8 % (12.1-15.1) H 10/17/24 05:05 Plt Count 147 10^3/cmm (157-399) L 10/17/24 05:05 MPV 9.1 fL (7.4-10.4) 10/17/24 05:05 Neut % (Auto) 60.5 % 10/17/24 05:05 Lymph % (Auto) 31.8 % 10/17/24 05:05 [place] % (Auto) 6.5 % 10/17/24 05:05 Eos % (Auto) 0.2 % 10/17/24 05:05 Baso % (Auto) 0.4 % 10/17/24 05:05 Neut # (Auto) 3.18 10^3/uL (1.8-7.7) 10/17/24 05:05 Lymph # (Auto) 1.7 10^3/uL (0.8-4.8) 10/17/24 05:05 [place] # (Auto) 0.3 10^3/uL (0.2-0.9) 10/17/24 05:05 Eos # (Auto) 0.0 10^3/uL (0.0-0.8) 10/17/24 05:05 Baso # (Auto) 0.0 10^3/uL (0.0-0.1) 10/17/24 05:05 Nucleated RBC % (auto) 0 % 10/17/24 05:05 Nucleated RBCs # 0.0 /100WBC 10/17/24 05:05 Specimen Type Arterial 10/15/24 13:41 Sample Site Radial, left 10/15/24 13:41 ABG pH 7.54 (7.35-7.45) H 10/15/24 13:41 ABG pCO2 43.5 mmHg (35-45) 10/15/24 13:41 ABG pO2 56.1 mmHg (80.0-100.0) L 10/15/24 13:41 ABG PO2/FiO2 Ratio 267 10/15/24 13:41 ABG HCO3 36.8 mmol/L (22-26) H 10/15/24 13:41 ABG O2 Saturation 92.3 10/15/24 13:41 ABG Base Excess 12.9 mmol/L (-2.0-2.0) H 10/15/24 13:41 Benjamin Test Pos 10/15/24 13:41 A-a O2 Gradient 5.3 mmHg (5-10) 10/15/24 13:41 Hematocrit 33.9 % (37-47) L 10/15/24 13:41 Hgb O2 Saturation 90.6 % (95-100) L 10/15/24 13:41 Carboxyhemoglobin 2.1 %THgb (0.4-20.1) 10/15/24 13:41 Methemoglobin < 0.0 % (0.4-1.5) L 10/15/24 13:41 Total Hemoglobin 11.1 g/dL (12-16) L 10/15/24 13:41 Sodium 140.0 mmol/L (131-143) 10/15/24 13:41 Potassium 3.6 mmol/L (3.5-5.0) 10/15/24 13:41 Glucose 97.0 mg/dL (70-115) 10/15/24 13:41 Ionized Calcium 1.1 mmol/L (1.1-1.4) 10/15/24 13:41 O2 Delivery Device Room air 10/15/24 13:41 FiO2 21.0 % 10/15/24 13:41 Corporation Officer ID Cak 10/15/24 13:41 Sodium 145 mmol/L (136-145) 10/17/24 05:05 Potassium 4.9 mmol/L (3.5-5.1) 10/17/24 05:05 Chloride 105 mmol/L (98-107) 10/17/24 05:05 Carbon Dioxide 22 mmol/L (22-29) 10/17/24 05:05 Anion Gap 22.9 (5-19) H 10/17/24 05:05 BUN 26 mg/dL (6-20) H 10/17/24 05:05 Creatinine 4.6 mg/dL (0.5-0.9) H 10/17/24 05:05 GFR Calculation 10.1 mL/min (90-130) L 10/17/24 05:05 Glucose 52 mg/dL (65-115) L 10/17/24 05:05 POC Glucose 57 mg/dL (70-110) L 10/17/24 06:32 Estimat Average Glucose 97 10/15/24 12:53 Hemoglobin A1c 5.0 % (4.0-6.0) 10/15/24 12:53 Calculated Osmolality 302 mOsm/kg (285-295) H 10/17/24 05:05 Calcium 9.5 mg/dL (8.5-10.5) 10/17/24 05:05 Magnesium 2.2 mg/dL (1.7-2.3) 10/17/24 05:05 Total Bilirubin 0.5 mg/dL (0.15-1.2) 10/17/24 05:05 AST 16 U/L (0-32) 10/17/24 05:05 ALT 13 U/L (0-33) 10/17/24 05:05 Alkaline Phosphatase 70 U/L (35-105) 10/17/24 05:05 Ammonia 20 umol/L (11-51) 10/15/24 13:39 Creatine Kinase 34 U/L (26-192) 10/15/24 12:53 Total Protein 7.5 g/dL (6.6-8.7) 10/17/24 05:05 Albumin 4.3 g/dL (3.5-5.2) 10/17/24 05:05 Globulin 3.2 g/dL (1.3-4.6) 10/17/24 05:05 Lipase 61 U/L (13-60) H 10/15/24 12:53 Vitamin B12 591 pg/mL (232-1245) 10/15/24 13:39 Procalcitonin 0.25 ng/mL (0-0.5) 10/15/24 13:39 TSH 1.89 uIU/mL (0.27-4.20) 10/15/24 13:39 Urine Color Yellow (Yellow) 10/15/24 14:48 Urine Appearance Clear (CLEAR) 10/15/24 14:48 Urine pH >=9.0 (5-7) A 10/15/24 14:48 Ur Specific [place] 1.008 (1.005-1.030) 10/15/24 14:48 Urine Protein 3+ (Negative) A 10/15/24 14:48 Urine Glucose (UA) Trace (Normal) H 10/15/24 14:48 Urine Ketones Negative (Negative) 10/15/24 14:48 Urine Blood Negative (Negative) 10/15/24 14:48 Urine Nitrate Negative (Negative) 10/15/24 14:48 Urine Bilirubin Negative (Negative) 10/15/24 14:48 Urine Urobilinogen 0.2 mg/dL (Negative) 10/15/24 14:48 Ur Leukocyte Esterase Negative (Negative) 10/15/24 14:48 Urine RBC 0-2 /hpf (0-2) 10/15/24 14:48 Urine WBC 0-5 /hpf (0-5) 10/15/24 14:48 Ur Squamous Epith Cells 0-5 /hpf (0-5) 10/15/24 14:48 Amorphous Sediment Not Reportable 10/15/24 14:48 Urine Bacteria None seen /hpf (NONE) 10/15/24 14:48 Hyaline Casts 1.21 /lpf 10/15/24 14:48 Salicylates < 0.3 mg/dL (3-10) L 10/15/24 12:53 Urine Opiates Screen Negative ng/mL (Negative) 10/15/24 14:48 Acetaminophen < 5.0 ug/mL (10-30) L 10/15/24 12:53 Ur Barbiturates Screen Negative ng/mL (Negative) 10/15/24 14:48 Ur Phencyclidine Scrn Negative ng/mL (Negative) 10/15/24 14:48 Ur Amphetamines Screen Negative ng/mL (Negative) 10/15/24 14:48 U Benzodiazepines Scrn Negative ng/mL (Negative) 10/15/24 14:48 Urine Cocaine Screen Negative ng/mL (Negative) 10/15/24 14:48 U Marijuana (THC) Screen Negative ng/mL (Negative) 10/15/24 14:48 Ethyl Alcohol < 10 mg/dL (0-10) 10/15/24 12:53 Serum Ketones Negative (Negative) 10/15/24 13:39 Vitals Last Vital Signs Temp 98.0 F 10/17/24 08:00 Pulse 108 H 10/17/24 08:00 Resp 16 10/17/24 08:00 BP 129/67 10/17/24 08:00 Pulse Ox 95 10/17/24 08:00 O2 Del Method Room Air 10/17/24 08:00 Discharge Plan Discharge Patient Disposition: Home Condition: Stable Prescriptions: New thiamine mononitrate (vit B1) [Vitamin B-1 (mononitrate)] 100 mg Tablet 100 mg PO DAILY Qty: 30 0RF folic acid 1 mg tablet 1,000 mcg PO DAILY Qty: 30 0RF Continued diphenhydramine HCl [Benadryl] 25 mg capsule 25 mg PO TID PRN (Reason: Itching) acetaminophen 325 mg capsule 650 mg PO QID PRN (Reason: Pain) pantoprazole 40 mg tablet,delayed release (DR/EC) 40 mg PO BID sodium bicarbonate 650 mg tablet 650 mg PO DAILY PRN (Reason: Dialysis) albuterol sulfate 90 mcg/actuation HFA aerosol inhaler 2 inh inhalation QID Qty: 8.5 4RF ropinirole 0.25 mg Tablet 0.25 mg PO BEDTIME melatonin 10 mg Capsule 10 mg PO BEDTIME RenaPlex-D 800 mcg-12.5 mg -2,000 unit Tablet 1 tab PO DAILY amlodipine 10 mg tablet 10 mg PO DAILY citalopram 20 mg tablet 20 mg PO DAILY ondansetron 4 mg tablet,disintegrating 4 mg PO Q6H PRN (Reason: nausea and vomiting) Qty: 14 0RF alprazolam [Xanax] 0.25 mg tablet 0.25 mg PO BID PRN (Reason: Anxiety and nausea) Qty: 10 0RF Held Ozempic 1 mg/dose (4 mg/3 mL) pen injector 1 mg SUBCUT Q7D Hold Instructions: see pcp No Action ondansetron 4 mg tablet,disintegrating 4 mg PO Q6H PRN (Reason: nausea and vomiting) Qty: 14 0RF Discharge Order = DC NOW: Discharge Order (Routine); Ordered 10/17/24 Ordered By: Daniela Brown Referrals: [facility] [Outside] - 4-7 days Referral Note: We have notified your physician's clinic of the need for a follow-up appointment to be scheduled. If you have not heard from them within the next 2 business days, please call them directly. Herber Hussein MD [Primary Care Provider, Family Practice] - 10/26/24 10:00 am Discharge Diet: Advance as tolerated Discharge Activity: Resume usual activity Patient Instructions: Thiamine (By mouth), Dialysis Nutrition Plan (GEN), Altered Mental Status (ED), Opioid Safety, Patient Portal & Navneet Instructions Discharge Attestations Time Spent in Discharge Care*: less than 30 min Status at Discharge: Cognitive status at discharge: cognitively intact , Behavioral status at discharge: cooperative , Quality Metrics Clinical Quality Measures [ No reported AMI, CVA or VTE this stay] Coding Level of Care Code Acute Code for Chg Fwd Diagnoses Major depressive disorder, recurrent F33.9 Chronic kidney disease with end stage renal failure on dialysis N18.6; Z99.2 ESRD (end stage renal disease) on dialysis N18.6; Z99.2 Anemia, unspecified type D64.9 Anemia type: unspecified type Altered mental status R41.82
--- NOTE | 2024-10-17 10:07 | P.PN_ITS ---
Subjective 2 Subjective: feels better. no n/v/f/c/may/d/leg pains Medications: Reviewed: Yes Medication Review Details: Current Medications Acetaminophen (Acetaminophen 325 Mg Tablet) 650 mg PO Q6H PRN PRN Reason: Mild/Mod Pain Or Temp >/= 101 Alprazolam (Alprazolam 0.5 Mg Tablet) 0.25 mg PO BID PRN PRN Reason: Anxiety Amlodipine Besylate (Amlodipine 10 Mg Tablet) 10 mg PO DAILY [facility] Last Admin: 10/17/24 08:32 Dose: 10 mg Citalopram Hydrobromide (Citalopram 20 Mg Tablet) 20 mg PO DAILY [facility] Last Admin: 10/17/24 08:32 Dose: 20 mg Glucagon (Glucagon 1 Mg/Ml Kit 1 Ml) 1 mg IM ONCE PRN; Protocol PRN Reason: Adult Acute Hypoglycemia Nursing Prot. Heparin Sodium (Porcine) (Heparin 5,000 Unit/Ml Inj 1 Ml) 5,000 unit SUBCUT Q12H [facility] Last Admin: 10/17/24 08:31 Dose: 5,000 unit Sodium Chloride (Sodium Chloride 0.9%) 1,000 mls @ 0 mls/hr IV .Q0M PRN PRN Reason: hypotension or symptomatic Albumin Human (Albumin) 12.5 gm in 50 mls @ 60 mls/hr IV PRN PRN PRN Reason: Hypotension and/or symptomatic Dextrose (D10w) 250 mls @ 1,000 mls/hr IV PRN PRN PRN Reason: HYPOGLYCEMIA Last Infusion: 10/17/24 07:32 Dose: Infused Dextrose (D5w) 500 mls @ 0 mls/hr IV ONCE PRN; Protocol PRN Reason: Adult Acute Hypoglycemia Prot Dextrose (D10w) 125 mls @ 750 mls/hr IV PRN PRN; Protocol PRN Reason: Adult Acute Hypoglycemia Nursing Protocol Dextrose (D10w) 250 mls @ 1,000 mls/hr IV PRN PRN; Protocol PRN Reason: Adult Acute Hypoglycemia Nursing Protocol Dextrose/Sodium Chloride (Dextrose 5%-Sod Chloride 0.9%) 1,000 mls @ 75 mls/hr IV .[id number] [facility] Last Admin: 10/17/24 08:31 Dose: 75 mls/hr Morphine Sulfate (Morphine 4 Mg/Ml Sdv 1 Ml) 2 mg IVP Q3H PRN PRN Reason: SEVERE PAIN Last Admin: 10/16/24 21:34 Dose: 2 mg Ondansetron HCl (Ondansetron Hcl Odt 4 Mg Tab) 4 mg PO Q6H PRN PRN Reason: NAUSEA AND VOMITING Ondansetron HCl (Ondansetron 2 Mg/Ml Sdv 2 Ml) 4 mg IVP Q4H PRN PRN Reason: NAUSEA AND VOMITING Pantoprazole Sodium (Pantoprazole Dr 40 Mg Tablet) 40 mg PO BID [facility] Last Admin: 10/17/24 08:32 Dose: 40 mg Prochlorperazine Edisylate (Prochlorperazine 10 Mg/2 Ml Inj) 10 mg IVP Q6H PRN PRN Reason: NAUSEA Last Admin: 10/17/24 00:31 Dose: 10 mg Sodium Bicarbonate (Sodium Bicarbonate 650 Mg Tablet) 650 mg PO DAILY PRN PRN Reason: Dialysis Thiamine Mononitrate (Thiamine 100 Mg Tablet) 100 mg PO DAILY [facility] Last Admin: 10/17/24 08:34 Dose: 100 mg Vitals/I&O/Wt Last Vital Signs Temp 98.0 F 10/17/24 08:00 Pulse 108 H 10/17/24 08:00 Resp 16 10/17/24 08:00 BP 129/67 10/17/24 08:00 Pulse Ox 95 10/17/24 08:00 O2 Del Method Room Air 10/17/24 08:00 10/16/24 10/17/24 10/17/24 22:59 06:59 14:59 Intake Total 1240 / 2480 60 / 2540 1071.667 / 1071.667 Balance 1240 / 2480 60 / 2540 1071.667 / 1071.667 Weight last 48 hrs Weight 66.542 kg Weight 67.54 kg Weight 72.575 kg Physical Exam 2 Narrative: comfortable in bed, NARD vs noted- tachy heent- nc/at neck supple lungs clear heart- tachy abd soft, nt,nd +bs ext rt leg AVF, no edema neuro- a,a,o x 3 Data 10/17/24 05:05 10/17/24 05:05 Micro: Microbiology 10/15/24 19:32 Blood Culture - Preliminary Blood NEGATIVE TO DATE 10/15/24 18:21 Blood Culture - Preliminary Blood NEGATIVE TO DATE A&P Assessment and plan 1. ESRD (end stage renal disease) on dialysis: 49 yr old female ESRD HD MWF, DM, HTN, anxiety 1. ESRD- HD today 2. hgb good 3. hypoglycemia- dec semaglutide. ensure she is not on insulin Plan: see abive. HD today and renal vit PDMP PDMP Reviewed: Not Reviewed Attestations 2 Medical Necessity Statement*: per hospitalist Time Spent in Patient Care: 16 - 35 minutes (>than 50% of time sp ent in counselling and/or direct pt care on unit) . Coding Level of Care Code Acute Code for Chg Fwd Diagnoses ESRD (end stage renal disease) on dialysis N18.6; Z99.2
[2024-10-17 11:12] LABS: Hepatitis B Surface Antigen Non-Reactive (Nonreactive)
[2024-10-17] MEDS: heparin, porcine 1,000 unit/mL INJ 10 mL 1000 UNIT IV (13:59)
[2024-10-17 15:18] LABS: RPR w(Moniotor) w/REFL Titer NON-REACTIVE (NON-REACTIVE)
[2024-10-17] MEDS: b-complex-vitamin c Tablet 1 EACH PO (15:32)
--- NOTE | 2024-10-17 15:42 | PC.NURSE ---
patient was awaiting dialysis, ate a full liquid diet and is ready for discharge.
[2024-10-18 21:04] LABS: HSV 1 DNA Not Detected (Not Detected); HSV 2 DNA Not Detected (Not Detected)
[2024-10-20 09:59] LABS: Vitamin B1 (Thiamine),Blood 144 nmol/L (78-185)
== END 2024-10-17 15:43 | disposition home or self-care (01) ==
LOC: ER 17:03 → ER IP 18:15 → MEDSURG 10-16 07:36
PROVIDERS: Internal Medicine; Internal Medicine Nephrology; Admitting Provider Internal Medicine; Emergency Provider Family Medicine; PCP Family Medicine; Visit Provider Internal Medicine
DX: R41.82 Altered mental status, unspecified (principal); E11.22 Type 2 diabetes mellitus with diabetic chronic kidney disease; N18.6 End stage renal disease; Z99.2 Dependence on renal dialysis; F33.9 Major depressive disorder, recurrent, unspecified; D64.9 Anemia, unspecified; R00.0 Tachycardia, unspecified; K21.9 Gastro-esophageal reflux disease without esophagitis; F17.200 Nicotine dependence, unspecified, uncomplicated; Z95.828 Presence of other vascular implants and grafts; I82.409 Acute embolism and thrombosis of unspecified deep veins of unspecified lower extremity; Z86.14 Personal history of Methicillin resistant Staphylococcus aureus infection; E11.40 Type 2 diabetes mellitus with diabetic neuropathy, unspecified; C21.0 Malignant neoplasm of anus, unspecified
CPT/HCPCS: 36415; 36416; 36600; 70450; 71045; 80051; 80053; 80306; 80307; 81001; 82009; 82140; 82330; 82550; 82607; 82805; 82962; 83036; 83690; 83735; 84100; 84145; 84425; 84443; 85025; 86592; 86695; 86696; 86706; 86803; 87040; 87086; 87340; 87530; 90935; 93005; 94664; 96361; 96372; 96374; 96375; 99285; G0378; J0360; J0780; J1644; J1885; J2060; J2270; J2405; J3411; J3490; J7030; J7042; J7799; J9999

== ENCOUNTER 2024-10-22 16:07 | Emergency (ER) | payer MEDICARE, MEDICAID, SELFPAY ==
--- NOTE | 2024-10-22 16:13 | CTR_ITS ---
PROCEDURE INFORMATION: Exam: CT Head Without Contrast Exam date and time: 10/22/2024 4:22 PM Age: 49 years old Clinical indication: Pain; Headache not specified; Additional info: JOSEPH TECHNIQUE: Imaging protocol: Computed tomography of the head without contrast. Radiation optimization: All CT scans at this facility use at least one of these dose optimization techniques: automated exposure control; mA and/or kV adjustment per patient size (includes targeted exams where dose is matched to clinical indication); or iterative reconstruction. COMPARISON: CT head wo con* [id number] 07/19/2020 8:20 PM RADIATION DOSE METRICS: Total DLP (mGy-cm): 1054.58 FINDINGS: Brain: The brain is unremarkable. There is no mass effect or significant white matter disease. There is no acute intracranial hemorrhage. Cerebral ventricles: There is no significant ventricular dilation. The basal cisterns are unremarkable. Paranasal sinuses: There is mucosal thickening with air-fluid level in the left maxillary sinus. Paranasal sinuses are otherwise clear. Mastoid air cells: The mastoid air cells are clear. Bones: The skull is unremarkable. Soft tissues: The visible extracranial soft tissues are unremarkable. CT/CT head wo con* [id number] IMPRESSION: 1. No acute intracranial abnormality. 2. Left maxillary sinusitis, possibly acute.
--- OUTSIDE RECORDS SUMMARY | 2024-10-22 16:27 | XMS_ITS | Encounter Summary ---
Author Organization [facility] [employer] Address [address] [place] [address] Phone Care Team Providers Care Shingle Weaver Name Role Phone Herber Hussein MD Primary Care Provider [phone] Reason for Visit * Reason Comments Med Refill Encounter Details Date Type Department Care Team (Late st Contact Info) Description 11/20/2020 Refill [facility] [address] [place] [address] Mohsen Mann MD [address] [place] [address] Social History Tobacco Use Types [...] on filedocumented in this encounter Care Teams Shingle Weaver Relationship Specialty Start Date End Date Herber Hussein MD PCP - General Family Medicine 07/14/18 documented as of this encounter
--- OUTSIDE RECORDS SUMMARY | 2024-10-22 16:27 | XMS_ITS | Encounter Summary ---
Author Organization [facility] [place] Address [address] [place] [address] Phone Care Team Providers Care Mechanical Integrity Specialist Name Role Phone Herber Hussein MD Primary Care Provider [phone] Reason for Visit * Reason Comments Med Refill Encounter Details Date Type Department Care Team (Late st Contact Info) Description 08/21/2021 Refill [facility] [address] [place] [id number] Mohsen Mann MD [address] [place] [address] Social History Tobacco Use Types [...] filedocumented in this encounter Care Teams Mechanical Integrity Specialist Relationship Specialty Start Date End Date Herber Hussein MD PCP - General Family Medicine 07/14/18 documented as of this encounter
--- OUTSIDE RECORDS SUMMARY | 2024-10-22 16:27 | XMS_ITS ---
Author Organization Unknown Vital Signs BpStanding BpSitting BpSupine Date Temperature HeartRate Weight Hei ght Spo2 Respiration Bmi HeadCircumference FieldCount TimeRecorded NeckCircumferen ce WaistCircumference Pulse 148/78 12/05 00:00 :00 159,0.0 0 5,9 23.5 00:00 88 142/80 03/06 00:00 :00 165,16. 00 5,9 97 24.5 00:00 105 124/59 10/08 00:00 :00 148,16. 00 5,9 22 00:00 72 105/50 06/08 00:00 :00 159,0.0 0 5,9 23.5 00:00 94 130/62 05/21 00:00 :00 165,16. 00 5,9 94 24.5 00:00 97 110/70 07/30 00:00 :00 161,16. 00 5,9 90 23.9 00:00 54
--- OUTSIDE RECORDS SUMMARY | 2024-10-22 16:27 | XMS_ITS | Encounter Summary ---
Author Organization [facility] Address [address] [facility] [address] [place] [address] Phone Care Team Providers Care Loading Rack Supervisor Name Role Phone Herber Hussein MD Primary Care Provider [phone] Encounter Details Date Type Department Care Team (Late st Contact Info) Description 09/29/2018 Orders Only [facility] [address] [place] [address] Tl Lawson NP Chronic kidney [...] (HCC) documented in this encounter Care Teams Loading Rack Supervisor Relationship Specialty Start Date End Date Herber Hussein MD PCP - General Family Medicine 07/14/18 documented as of this encounter
--- OUTSIDE RECORDS SUMMARY | 2024-10-22 16:27 | XMS_ITS ---
Author Name Vick, Clinic Address [address] [place] [address] Phone [phone] Organization [facility] e, NA DOCUMENT DISCLAIMER Multiple document versions may exist, please be sure you review the latest version. The information in the [facility] Continuity of Care Document represents a summary [...] Dosage Route Start Date End Date Status Acetaminophen PRN-may repeat x1 pain 650 mg Oral August 01, 2024 July 31, 2025 Active Diphenhydramine PRN-may repeat x1 itching [...] August 29, 2024 August 28, 2025 Active Epoetin Mata (Epogen) During Dialysis, 3X Week 7600 units Intravenous - push September 24, 2024 September 23, 2025 Discontinued Epoetin Mata (Epogen) During Dialysis, 3X Week 6000 units Intravenous - push August 31, 2024 August 30, 2025 Discontinued Epoetin Mata (Epogen) During Dialysis, 3X Week 5800 units Intravenous - push October 01, 2024 September 30, 2025 Discontinued Epoetin Mata (Epogen) During Dialysis, 3X Week 4400 units Intravenous - push October 15, 2024 October 14, 2025 Discontinued Home Medications Medication Instructions Dosage Route Start Date End Date Stat acetaminophen 325 mg Take by mouth four [...] Sign Value Date / Time Blood Pressure-sitting 135/67 mmHg October 06:26 AM Blood Pressure-standing 96/59 mmHg October 06:26 AM Heart Rate 101 beats per minute October 19, 2024 06:26 AM Respiratory Rate 18 breaths per minute October 06:26 AM Temperature 97.6 deg. F October 19, 2024 06:26 AM Weight Vital Sign Value Date / Time Estimated Dry Weight 64.5 kg October 19, 2024 11:59 PM Pre-Dialysis 64.00 kg October 19, 2024 06:26 AM Post-Dialysis 64.20 kg October 19, 2024 06:26 AM Other Other Value Date / Time [...] 260 mcg/dL 185 - 515 mcg/dL - uar y 2024 Transferrin Sat. (Calc) 29 % 20 - 55 % - April 25 Neutrophils 63.6 % 40.0 - 75.0 % - April WBC (No Diff) 5.95 1000/mcL 4.80 - 10.80 1000/mcL - April 25, 2024 Neutrophils 73.3 % 40.0 - 75.0 % - May 23, 2024 Ferritin 1045 ng/mL 10 - 291 ng/mL High May 23, 2024 Folate, Serum 21.5 ng/mL No Reference Ran ge Provided - May 23, 2024 WBC (No Diff) [...] - 10.80 1000/mcL - June 20, 2024 Basophils 1.1 % 0.0 - 1.5 % - July 25, 2024 Eosinophil 3.9 % 0.0 - 7.0 % - July 25, 2024 Monocytes 5.2 % 3.0 - 10.0 % - July 25, 2024 Lymphocytes 18.3 % 19.0 - 48.0 % Low July 25 Neutrophils 69.3 % 40.0 - 75.0 % - July 25 Hemoglobin x 3 33.6 % 36.0 - 48.0 % Low July 25, 2024 RDW 15.0 % 11.5 - 14.5 % High July 25 MCHC 34.1 g/dL 30.0 - 36.0 g/dL - July 25, 2024 MCH 34.2 pg 27.0 - 31.0 pg High July 25 WBC (No Diff) 6.70 1000/mcL 4.80 [...] mcg/dL 185 - 515 mcg/dL - August Ferritin 1622 ng/mL 10 - 291 ng/mL [...] % 40.0 - 75.0 % Low August 24, Lymphocytes 53.7 % 19.0 - 48.0 % High August 24 Hemoglobin x 3 21.9 % 36.0 - 48.0 % Low August Platelets 144 1000/mcL 130 - 400 1000/mcL - August 24, 2024 Hemoglobin x 3 23.7 % 36.0 - [...] 19.0 - 48.0 % - September 19 Transferrin Sat. (Calc) 23 % 20 - 55 % - September 19, 2024 Platelets 170 1000/mcL 130 - 400 1000/mcL - September 19, 2024 Hemoglobin x 3 28.5 % 36.0 - 48.0 % Low September MCHC 34.1 g/dL 30.0 - 36.0 g/dL - September 19, 2024 MCH 35.4 pg 27.0 - 31.0 pg High September 19 RDW 18.4 % 11.5 - 14.5 % [...] - 16.0 g/dL Low October 10, 2024 HGB 12.4 g/dL 12.0 - 16.0 g/dL - October Hemoglobin x 3 37.2 % 36.0 - 48.0 % - October 19, 2024 Metabolic/Renal Result Type Result Value Relevant [...] mEq/L 3.5 - 5.1 mEq/L - July 25 Sodium 139 mEq/L 136 - 145 mEq/L [...] 22 - 29 mEq/L - August 24, 2 025 Chloride 102 mEq/L 96 - 108 mEq/L - August 24, 025 Chloride 103 mEq/L 96 - 108 mEq/L - September 19, 025 Bicarbonate 23 mEq/L 22 - 29 mEq/L - September 19, 025 Creatinine, Serum 4.97 mg/dL 0.60 - [...] Ran ge Provided - July 25, 2024 wstdKt/V, residual 0.0 No Reference Range Provided - July 25, 2024 spKt/V Got 1.32 No Reference Ran ge Provided - July 25, 2024 eKt/V ([place]) 1.10 No Reference Range Provided - July 25, 2024 spKt/V (Daugirdas II) 1.33 No Reference Range Provided - July 25, 2024 wstdKt/V 2.3 No Reference Ran ge Provided - July 25, 2024 spKt/V (Daugirdas II) 1.43 No Reference Range Provided - August 06, 2024 wstdKt/V, residual 0.0 No Reference Range Provided - August 06, 2024 wstdKt/V 2.3 No Reference Ran ge Provided - August 06, 2024 Krt/V 0.00 No Reference Ran ge Provided - August 06, 2024 eKt/V ([place]) 1.19 No Reference Range Provided - August 06, 2024 wstdKt/V without residual 2.3 No Reference Range Provided - August 06, 2024 spKt/V Got 1.42 No Reference Ran ge Provided - August 06, 2024 wstdKt/V, residual 0.0 No Reference Range Provided - August 24, 2024 wstdKt/V without residual 2.5 No Reference Range Provided - August 24, 2024 eKt/V ([place]) 1.38 No Reference Range Provided - August 24, 2024 spKt/V (Daugirdas II) 1.67 No Reference Range Provided - August 24, 2024 wstdKt/V 2.5 No Reference Ran ge Provided - August 24, 2024 spKt/V Got 1.68 No Reference Ran ge Provided - August 24, 2024 Krt/V 0.00 No Reference Ran ge Provided - August 24, 2024 spKt/V (Daugirdas II) 1.64 No Reference Range Provided - September 26, 2024 wstdKt/V 1.6 No Reference Ran ge Provided - September 26, 2024 wstdKt/V, residual 0.0 No Reference Range Provided - September 26, 2024 Krt/V 0.00 No Reference Ran ge Provided - September 26, 2024 spKt/V Gotch 1.61 No Reference Ran ge Provided - September 26, 2024 wstdKt/V without residual 1.6 No Reference Range Provided - September 26, 2024 eKt/V ([place]all) [...] Result Value Relevant Reference Range Interpre tat A/G Ratio 1.7 1.0 - 2.0 - July 25, 2024 Globulin (Calc) 2.6 g/dL 2.0 - 4.0 g/dL - July Albumin (BCG) 4.5 g/dL 3.5 - 5.2 g/dL - July 25, 2024 Total Protein 7.1 g/dL 6.0 - 8.5 g/dL - July 25, 2024 eNPCR 0.69 No Reference Range Provided - July 25, 2024 eNPCR 0.46 No [...] Result Value Relevant Reference Range Interpre tation Aluminum < 5 mcg/L 0 - 10 [...] Hemodialysis Data Element Value Order Date/Time October 19, 2024 Frequency 3X Week Treatment Days MonWedFri Dialyzer 180NRe Optiflux Treatment Time (Total Minutes) 165 min Blood Flow Rate (mL/min) 450 mL/min Dialysate Flow Rate Autoflow 2.0 Estimated Dry Weight 64.5 kg Dialysate Concentrate 3.0 K, 2.5 Ca, [...] Dialysate Dialyzer Dialysis Access Meds Admin October 12, 2024 Weight 68.60 kg Weight 68.30 kg 02:49:00 450 3.0 K, 2.5 Ca, 1.0 Mg, 100 Dextrose (G3251) 180nre Optifl ux Blood Pressure-sitting 165/73 mmHg Blood Pressure-sit ting 141/66 mmHg Blood Pressure-standing 152/69 mmHg Blood Pressure-st anding 131/62 mmHg Heart Rate 111 beats per minute Heart Rate 99 beats per minute Respiratory Rate 16 breaths per minute Respiratory Rate 18 breaths per minute Temperature 97.5 deg. F Temperature 97.5 deg. F October 15, 2024 Weight 67.70 kg Weight 67.60 kg 02:41:00 450 3.0 K, 2.5 Ca, 1.0 Mg, 100 Dextrose (G3251) 180nre Optiflux Hemodialysis-AV Fistula-Transposed, Right Thigh, Femoral Artery to Saphenous Vein Access Placed on August 19, 2020 Acetaminophen; 650mg,Oral Epoetin Mata (Epogen); 4400units,Intravenous - push Iron Sucrose (Venofer); 50mg,Intravenous - push Vitamin D (Calcitriol) Oral; 1.0mcg,Oral Blood Pressure-sitting 111/60 mmHg Blood Pressure-sit ting 109/67 mmHg Heart Rate 101 beats per minute Blood Pressure-standing 108/53 mmHg Respiratory Rate 18 breaths per minute Heart Rate 92 beats per minute Temperature 97.5 deg. F Respiratory Rate 18 breaths per minute - - Temperature 97.5 deg. F October 19, 2024 Weight 64.00 kg Weight 64.20 kg 02:58:00 450 3.0 K, 2.5 Ca, 1.0 Mg, 100 Dextrose (G3251) 180nre Optiflux Hemodialysis-AV Fistula-Transposed, Right Thigh, Femoral Artery to Saphenous Vein Access Placed on August 19, 2020 Epoetin Mata (Epogen); 4400units,Intravenous - push Vitamin D (Calcitriol) Oral; 1.0mcg,Oral Blood Pressure-sitting 124/87 mmHg Blood Pressure-sit ting 135/67 mmHg Blood Pressure-standing 103/58 mmHg Blood Pressure-st anding 96/59 mmHg Heart Rate 108 beats per minute Heart Rate 101 beats per minute Respiratory Rate 16 breaths per minute Respiratory Rate 18 breaths per minute Temperature 98.0 deg. F Temperature 97.6 deg. F
--- OUTSIDE RECORDS SUMMARY | 2024-10-22 16:27 | XMS_ITS | Encounter Summary ---
Author Organization [email or web address], [employer] Address [address] [place] [address] Phone Care Team Providers Care Community Health Educator Name Role Phone Herber Hussein MD Primary Care Provider [phone] Encounter Details Date Type Department Care Team (Late st Contact Info) Description 10/19/2024 Orders Only [email or web address] [address] [place] [address] Bee Chavarria MD [address] [place] [address] Social History Tobacco Use Types [...] Priority Date/Time Associated Diagnosis Comments HEMATOLOGY Routine 10/19/2024 documented in this encounter Results * HEMATOLOGY (10/19/2024) Hemoglobin 12.4 12.0 - 16.0 g/dL [facility] Hemoglobin x 3 37.2 36.0 - 48.0 % [facility] 10/19/2024 10/20/2024 9:5 0 AM CDT Narrative [facility] - 10/20/2024 Unless otherwise specified, test(s) performed at: [facility], [address] [place] [address] AUTOMATIC WINDER OPERATOR: Michael Knox M.D. For any questions, please call [facility] service at FREQUENCY:OTHER Resulting Agency Comment Specimen source: Blood us Bee Chavarria MD LAB BLOOD ORDERABLES Final Re sult [facility] See order comments or contact performing lab Unknown, [place] documented in this encounter Visit Diagnoses Not on filedocumented in this encounter Care Teams Community Health Educator Relationship Specialty Start Date End Date Herber Hussein MD PCP - General Family Medicine 07/14/18 documented as of this encounter
--- OUTSIDE RECORDS SUMMARY | 2024-10-22 16:27 | XMS_ITS | Clinical Summary ---
Author Organization [facility] Facility Address [address] [place] [address] Care Team Providers Care Diet Counselor Name Role Phone Herber Hussein MD Primary Care Provider [phone] Allergies Active Allergy Reactions Criticality Noted Date Comments Adhesive Tape 03/31/2018 Other reaction(s): Other (See Comments) blister Cephalexin Rash Medium 05/24/2018 Cephalosporins Rash Low 04/01/2017 Tolerated zosyn, unasyn Latex Rash Medium 05/24/2018 Medications Vit-Fe Fumarate-FA ( VITAMIN PO) Take 1 tablet by mouth 1 (one) time each day Active ergocalciferol (DRISDOL) 01923 units capsule Take 1 capsule by mouth [...] (01/11/2022): Added automatically from request for surgery [id number] Anemia in chronic kidney disease 10/10/2018 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 05/25/2018 Acute nontraumatic kidney injury 05/25/2018 Essential hypertension 05/25/2018 Type 2 diabetes mellitus 05/25/2018 IgA nephropathy 05/25/2018 Thromboembolism of vein 06/12/2017 Tobacco use 04/26/2017 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 Methamphetamine abuse 04/01/2017 Splenic infarction 04/01/2017 Encounters Date Type Department Care Team Description 10/19/2024 Orders Only [facility] [address] [place] [phone] Bee Chavarria MD 10/10/2024 Orders Only [facility] [address] [place] [address] Bee Chavarria MD 10/10/2024 Treatment [facility] [address] [place] [phone] Bee Chavarria MD End stage renal disease; Dependence on renal dialysis 10/05/2024 Orders Only [facility] [address] [place] [address] Bee Chavarria MD 10/05/2024 [facility]ation [facility], [facility] [address] [place] [address] Daisy Lindsay, [place] 10/04/2024 Telephone [facility], [facility] [address] [place] [address] Yuliana Maradiaga NP 09/26/2024 Orders Only [facility], [facility] [address] [place] [address] Bee Chavarria MD 09/26/[address] [place] [address], [facility] [address] [place] [address] Daisy Lindsay, [place] End stage renal disease; Dependence on renal dialysis 09/19/2024 Orders Only [facility], [facility] [address] [place] [address] Bee Chavarria MD 09/19/[address] [place] [address], [facility] [address] [place] [address] Daisy Lindsay, [place] End stage renal disease; Dependence on renal dialysis 09/12/2024 Orders Only [facility], [facility] [address] [place] [address] Bee Chavarria MD 09/10/2024 Treatment [facility], [facility] [address] [place] [address] Ana Viramontes NP End stage renal disease; Dependence on renal dialysis 09/05/2024 Orders Only [facility], [facility] [address] [place] [address] Bee Chavarria MD 09/05/2024 [facility] [address] [place] [phone] Bee Chavarria MD End stage renal disease; Dependence on renal dialysis 08/29/2024 Orders Only [facility], [facility] [address] [place] [address] Bee Chavarria MD 08/27/2024 Treatment [facility], [facility] [address] [place] [address] Ana Viramontes NP End stage renal disease; Dependence on renal dialysis 08/24/2024 Orders Only [facility], [facility] [address] [place] [address] Bee Chavarria MD 08/20/2024 Treatment [facility], [facility] [address] [place] [address] Ana Viramontes NP End stage renal disease; Dependence on renal dialysis 08/17/2024 Orders Only [facility], [facility] [address] [place] [address] Bee Chavarria MD 08/15/2024 Orders Only [facility], [facility] [address] [place] [address] Bee Chavarria MD 08/15/[address] [place] [address], [facility] [address] [place] [address] Bee Chavarria MD End stage renal disease; Dependence on renal dialysis 08/08/2024 Orders Only [facility], [facility] [address] [place] [address] Bee Chavarria MD 08/06/2024 Orders Only [facility], [facility] [address] [place] [address] Bee Chavarria MD 08/06/2024 Treatment [facility], [facility] [address] [place] [address] Daisy Lindsay NP End stage renal disease; Dependence on renal dialysis 08/01/2024 Orders Only [facility], [facility] [address] [place] [address] Bee Chavarria MD 07/30/[address] [place] [address] [facility], [facility] [address] [place] [address] Ana Viramontes NP End stage renal disease; Dependence on renal dialysis 07/27/2024 Orders Only [facility], [facility] [address] [place] [address] Bee Chavarria MD 07/25/2024 Orders Only [facility], [facility] [address] [place] [address] Bee Chavarria MD 07/23/[address] [place] [address] [email or web address], [facility] [address] [place] [address] Daisy Lindsay NP End stage renal disease; Dependence on renal dialysis from Last 3 Months Immunizations Immunization Administration [...] Date/Time Associated Diagnosis Comments HEMATOLOGY Routine 10/19/2024 HEMATOLOGY Routine 10/10/2024 HEMATOLOGY Routine 10/05/2024 [facility] [...] 07/25/2024 CHEMISTRY Routine 07/25/2024 HEMATOLOGY Routine 07/25/2024 SPECIAL CHEMISTRY Routine 02/22/2024 from Last 3 Months or Most Recently Relevant to Health Maintenance Results * HEMATOLOGY (10/19/2024) Only the most recent of14 resultswithin the time period is included. Hemoglobin 12.4 12.0 - 16.0 g/dL [facility] Hemoglobin x 3 37.2 36.0 - 48.0 % [facility] 10/19/2024 10/20/2024 9:5 0 AM CDT Narrative [facility] - 10/20/2024 Unless otherwise specified, test(s) performed at: [facility], [address] [place] [address] METAL FRAMER: Michael Knox M.D. For any questions, please call customer service at FREQUENCY:OTHER Resulting Agency Comment Specimen source: Blood Bee Chavarria MD LAB BLOOD ORDERABLES Final Re sult [facility] See order comments or contact performing lab Unknown, [place] * HD KINETICS (09/26/2024) Only the most recent of4 resultswithin the time period is included. % Urea Reduction 80 65 - 80 % [facility] 09/26/2024 09/27/2024 11: 55 AM CDT Narrative Resulting Agency Comment Specimen source: Plasma Bee Chavarria MD LAB BLOOD ORDERABLES Final Re sult [facility] See order comments or contact performing lab Unknown, [place] * POST CHEMISTRY (09/26/2024) Only the most recent of4 resultswithin the time period is included. BUN Post Dialysis 12 6 - 19 mg/dL [facility] 09/26/2024 09/27/2024 11: 55 AM CDT Narrative [facility] - 09/27/2024 Unless otherwise specified, test(s) performed at: [facility], [address] [place] [address] METAL FRAMER: Michael Knox M.D. For any questions, please call customer service at FREQUENCY:OTHER Resulting Agency Comment Specimen source: Plasma us Bee Chavarria MD LAB BLOOD ORDERABLES Final Re sult Performing Organization Address [facility]/ZIP Co de Phone Number [facility] See order comments or contact performing lab Unknown, [place] * (ABNORMAL) [facility] Chemistry (09/26/2024) Only the most recent of7 resultswithin the time period is included. Pathologist [facility] BUN 59(H) 6 - 19 mg/dL [facility] 09/26/2024 09/27/2024 12: 27 PM CDT Narrative [facility] - 09/27/2024 Unless otherwise specified, test(s) performed at: [facility], [address] [place] [address] METAL FRAMER: Michael Knox M.D. For any questions, please call customer service at FREQUENCY:OTHER Resulting Agency Comment Specimen source: Serum us Bee Chavarria MD LAB BLOOD ORDERABLES Final Re sult Performing Organization Address City/[facility]/ZIP Co de Phone Number [facility] See order comments or contact performing lab Unknown, [place] * [facility] Results (09/26/2024) Only the most recent of4 resultswithin the time period is included. eKt/V [facility]ch 1.30 [facility] spKt/V (Daugirdas II) 1.64 [facility] PCR 56.82 [facility] eNPCR 0.91 [facility] WSTDKT/V 1.6 [facility] nPCR_HD 1.00 [facility] eKdrt/V 1.30 [facility] spKt/V Gotch 1.61 [facility] eKt/V ([place]all) 1.36 [facility] 09/26/2024 09/26/2024 [facility] Ordering Provider LAB BLOOD ORDERABLES Final Result [facility] Contact Performing lab Unknown, [place] * Blood culture (07/27/2024) Culture Result See below [facility] Comment: No Aerobic or Anaerobic Growth after 5 Days of Incubation. 07/27/2024 07/28/2024 10: 10 AM CDT Narrative [facility] - 08/02/2024 Unless otherwise specified, test(s) performed at: [facility], [address] [place] [address] METAL FRAMER: Michael Knox M.D. For any questions, please call customer service at FREQUENCY:OTHER Resulting Agency Comment Specimen source: Blood/Dialysis Bloodline Bee Chavarria MD LAB MICROBIOLOGY - GENERAL OR DERABLES Final Result Performing Organization Address City/[facility]/ZIP Co de Phone Number [facility] See order comments or contact performing lab Unknown, [place] * Blood culture (07/27/2024) Culture, Blood See below [facility] Comment: No Aerobic or Anaerobic Growth after 5 Days of Incubation. 07/27/2024 07/28/2024 10: 10 AM CDT Narrative [facility] - 08/02/2024 Unless otherwise specified, test(s) performed at: [facility], [address] [place] [address] METAL FRAMER: Mihcael Knox M.D. For any questions, please call customer service at FREQUENCY:OTHER Resulting Agency Comment Specimen source: Blood/Dialysis Bloodline Bee Chavarria MD LAB MICROBIOLOGY - GENERAL OR DERABLES Final Result [facility] See order comments or contact performing lab Unknown, [place] * (ABNORMAL) SPECIAL CHEMISTRY (02/22/2024) Hemoglobin A1C 6.1(H) 4.8 - 5.9 % [facility] 02/22/2024 02/23/2024 11: 16 AM MATCH UP PERSON Narrative [facility] - 02/23/2024 Unless otherwise specified, test(s) performed at: [facility], [address] [place] [address] METAL FRAMER: Michael Knox M.D. For any questions, please call customer service at FREQUENCY:MONTHLY Resulting Agency Comment Specimen source: Blood Bee Chavarria MD LAB BLOOD BANK TEST ORDERABLE S Final Result Performing Organization Address City/[facility]/ZIP Co de Phone Number [facility] See order comments or contact performing lab Unknown, [place] from Last 3 Months or Most Recently Relevant to Health Maintenance Insurance Medicaid [place] ([id number]) Medicare Care Teams Diet Counselor Relationship Specialty Start Date End Date Herber Hussein MD PCP - General Family Medicine 07/14/18
--- OUTSIDE RECORDS SUMMARY | 2024-10-22 16:27 | XMS_ITS | Encounter Summary ---
Author Organization [facility] [employer] Address [address] [place] [address] Phone Care Team Providers Care Certified First Assistant Name Role Phone Herber Hussein MD Primary Care Provider [phone] Reason for Visit * Reason Comments Med Refill Encounter Details Date Type Department Care Team (Late st Contact Info) Description 06/23/2024 Refill [facility] [address] [place] [address] Bee Chavarria MD [address] [place] [address] Social History Tobacco Use Types [...] on filedocumented in this encounter Care Teams Certified First Assistant Relationship Specialty Start Date End Date Herber Hussein MD PCP - General Family Medicine 07/14/18 documented as of this encounter
--- OUTSIDE RECORDS SUMMARY | 2024-10-22 16:27 | XMS_ITS | Encounter Summary ---
Author Organization [facility], [employer] Address [address] [place] [address] Phone Care Team Providers Care Managed Care Nurse Name Role Phone Herber Hussein MD Primary Care Provider [phone] Encounter Details Date Type Department Care Team (Late st Contact Info) Description 11/08/2018 Orders Only [facility] [address] [place] [address] Sherry Lau MA [address] [place] [address] Chronic kidney disease stage 4 [...] Agency Comment Performing Organization Information: Site ID: [place] Name: [employer] [facility] Address: [address] [place] [address] Director: Jadiel Winslow D.O., MPH us Mohsen [...] Performing Organization Information: Site ID: RIK Name: [facility] Address: [address] [place] [address] Director: Jadiel Winslow D.O., MPH Mohsen Mann [...] Performing Organization Information: Site ID: RIK Name: [facility] Address: [address] [address] Director: Jadiel Winslow D.O., MPH us Mohsen Mann MD LAB BLOOD ORDERABLES Fi nal Result [facility] documented in this encounter Visit Diagnoses Diagnosis Chronic kidney disease stage 4 (HCC) Essential hypertension documented in this encounter Care Teams Managed Care Nurse Relationship Specialty Start Date End Date Herber Hussein MD PCP - General Family Medicine 07/14/18 documented as of this encounter
--- OUTSIDE RECORDS SUMMARY | 2024-10-22 16:27 | XMS_ITS | Encounter Summary ---
Author Organization [facility], [employer] Address [address] [place] [address] Phone Care Team Providers Care Foundry Worker General Name Role Phone Herber Hussein MD Primary Care Provider [phone] Reason for Visit * Reason Comments Med Refill Encounter Details Date Type Department Care Team (Late st Contact Info) Description 05/06/2020 Refill [facility] [address] [place] [phone] Mohsen Mann MD [address] [place] [address] Social History Tobacco Use Types [...] on filedocumented in this encounter Care Teams Foundry Worker General Relationship Specialty Start Date End Date Herber Hussein MD PCP - General Family Medicine 07/14/18 documented as of this encounter
--- OUTSIDE RECORDS SUMMARY | 2024-10-22 16:27 | XMS_ITS | Encounter Summary ---
Author Organization [facility], [employer] Address [address] [place] [address] Phone Care Team Providers Care Technical Sales Engineer Name Role Phone Herber Hussein MD Primary Care Provider [phone] Reason for Visit * Reason Comments Med Refill Encounter Details Date Type Department Care Team (Late st Contact Info) Description 02/08/2024 Refill [facility] [address] [place] [phone] Bee Chavarria MD [address] [place] [address] Social History Tobacco Use Types [...] (02/08/2024) Hemoglobin 8.9(L) 12.0 - 16.0 g/dL [facility] Hemoglobin x 3 26.7(L) 36.0 - 48.0 % [facility] 02/08/2024 02/09/2024 12: 25 PM PNEUMATIC TESTER Narrative [facility] - 02/09/2024 Unless otherwise specified, test(s) performed at: [facility], [address] [place], [place] [id number] GARDEN MACHINERY MECHANIC: Michael Knox M.D. For any questions, please call customer service at FREQUENCY:OTHER Resulting Agency Comment Specimen source: Blood us Bee Chavarria MD LAB BLOOD ORDERABLES Final Re sult [employer] [facility] See order comments or contact performing lab Unknown, [place] documented in this encounter Visit Diagnoses Not on filedocumented in this encounter Care Teams Technical Sales Engineer Relationship Specialty Start Date End Date Herber Hussein MD PCP - General Family Medicine 07/14/18 documented as of this encounter
--- OUTSIDE RECORDS SUMMARY | 2024-10-22 16:27 | XMS_ITS | Encounter Summary ---
Author Organization [facility], [employer] Address [address] [place] [address] Phone Care Team Providers Care Die Equipment Operator Name Role Phone Herber Hussein MD Primary Care Provider [phone] Reason for Visit * Reason Comments Med Refill Encounter Details Date Type Department Care Team (Late st Contact Info) Description 10/29/2020 Refill [facility] [address] [place] [phone] Mohsen Mann MD [address] [place] [address] Social History Tobacco Use Types [...] on filedocumented in this encounter Care Teams Die Equipment Operator Relationship Specialty Start Date End Date Herber Hussein MD PCP - General Family Medicine 07/14/18 documented as of this encounter
--- OUTSIDE RECORDS SUMMARY | 2024-10-22 16:27 | XMS_ITS | Encounter Summary ---
Author Organization [facility], [place] Address [address] [place] [address] Phone Care Team Providers Care Lcac Radar Operator/Navigator Name Role Phone Herber Hussein MD Primary Care Provider Reason for Visit * Reason Comments Med Refill Encounter Details Date Type Department Care Team (Late st Contact Info) Description 11/23/2021 Refill [facility] [address] [place] [phone] Mohsen Mann MD [address] [place] [address] Social History Tobacco Use Types [...] on filedocumented in this encounter Care Teams Lcac Radar Operator/Navigator Relationship Specialty Start Date End Date Herber Hussein MD PCP - General Family Medicine 07/14/18 documented as of this encounter
--- OUTSIDE RECORDS SUMMARY | 2024-10-22 16:27 | XMS_ITS | Encounter Summary ---
Author Organization [facility] Address [address] [place] [address] Phone Care Team Providers Care Research Development Director Name Role Phone Herber Hussein MD Primary Care Provider [phone] Reason for Visit * Reason Comments Med Refill Encounter Details Date Type Department Care Team (Late st Contact Info) Description 05/30/2020 Refill [facility] [address] [place] [phone] Mohsen Mann MD [address] [place] [address] Social History Tobacco Use Types [...] on filedocumented in this encounter Care Teams Research Development Director Relationship Specialty Start Date End Date Herber Hussein MD PCP - General Family Medicine 07/14/18 documented as of this encounter
--- OUTSIDE RECORDS SUMMARY | 2024-10-22 16:27 | XMS_ITS | Encounter Summary ---
Author Organization [facility], [facility] Address [address] [place] [address] Phone Care Team Providers Care Digital Commentator Name Role Phone Herber Hussein MD Primary Care Provider [phone] Reason for Visit * Reason Comments Med Refill Encounter Details Date Type Department Care Team (Late st Contact Info) Description 02/21/2024 Refill [facility] [address] [place] [phone] Bee Chavarria MD [address] [place] [address] Social History Tobacco Use Types [...] on filedocumented in this encounter Care Teams Digital Commentator Relationship Specialty Start Date End Date Herber Hussein MD PCP - General Family Medicine 07/14/18 documented as of this encounter
--- OUTSIDE RECORDS SUMMARY | 2024-10-22 16:27 | XMS_ITS | Encounter Summary ---
Author Organization [facility] Address [address] [facility] [address] [place] [address] Phone Care Team Providers Care Criminal Lawyer Name Role Phone Herber Hussein MD Primary Care Provider [phone] Encounter Details Date Type Department Care Team (Late st Contact Info) Description 12/11/2018 Orders Only [facility] [address] [place] [address] Tl Lawson, [place] Chronic kidney [...] HEPATITIS C ANTIBODY Routine 04/30/2019 10:54 AM CASING TESTER HEPATITIS A ANTIBODY, IGM Routine 04/30/2019 10:54 AM CASING TESTER HEPATITIS B CORE ANTIBODY, IGM Routine 04/30/2019 10:54 AM CASING TESTER HEPATITIS B SURFACE ANTIGEN Routine 04/30/2019 10:54 AM CASING TESTER RENAL FUNCTION PANEL Routine 04/30/2019 10:54 AM CASING TESTER PROTEIN / CREATININE RATIO, URINE Routine 04/11/2019 1:09 PM CASING TESTER CBC AND DIFFERENTIAL Routine 04/11/2019 1:09 PM CASING TESTER RENAL FUNCTION PANEL Routine 04/11/2019 1:09 PM CASING TESTER PROTEIN / CREATININE RATIO, URINE Routine 12/06/2018 [...] (ABNORMAL) Renal Function Panel (04/30/2019 10:54 AM CASING TESTER) Glucose 268(H) 65 - 99 mg/dL [facility] [...] 5.1 g/dL [facility] 04/30/2019 10:5 4 AM CASING TESTER 04/30/2019 10:55 AM CASING TESTER Narrative Resulting Agency Comment Performing Organization Information: Site ID: [place] Name: [facility] Address: [address] [address] Director: Jadiel Winslow D.O., MPH Mohsen Mann MD LAB BLOOD ORDERABLES Fi nal Result [facility] * Hepatitis C antibody (04/30/2019 10:54 AM CASING TESTER) Hepatitis C Antibody NON-REACTI VE NON-REACT JUICE [facility] Signal/Cutoff 0.08 <1.00 [facility] Comment: HCV antibody was non-reactive. There is no laboratory evidence of HCV infection. In most cases, no further action is required. However, if recent HCV exposure is suspected, a test for HCV RNA (test code 38962) is suggested. For additional information please refer to http://education.LinPrim/faq/TVN36s2 (This link is being provided for informational/ educational purposes only.) 04/30/2019 10:5 4 AM CASING TESTER 04/30/2019 10:55 AM CASING TESTER Narrative Resulting Agency Comment Performing Organization Information: Site ID: RIK Name: [facility] Address: [address] [place] [phone] Director: Jadiel Winslow D.O., MPH Mohsen Mann MD LAB BLOOD ORDERABLES Fi nal Result Performing Organization Address [facility] de Phone Number [facility] * Hepatitis B core antibody, IgM (04/30/2019 10:54 AM CASING TESTER) Hep B Core IgM NON-REACTI VE NON-REACTI VE [facility] 04/30/2019 10:5 4 AM CASING TESTER 04/30/2019 10:55 AM CASING TESTER Narrative Resulting Agency Comment Performing Organization Information: Site ID: RIK Name: [employer] [facility] Address: [address] [place] [phone] Director: Jadiel Winslow D.O., MPH Mohsen Mann MD LAB BLOOD ORDERABLES Fi nal Result Performing Organization Address [facility] Phone Number [facility] * Hepatitis B Surface Antigen (04/30/2019 10:54 AM CASING TESTER) Hep B Surface Antigen NON-REACTIVE NON-REACT JUICE [facility] Confirmation CANCELED [facility] Comment:Result canceled by kavon lacy. 04/30/2019 10:5 4 AM CASING TESTER 04/30/2019 10:55 AM CASING TESTER Narrative Resulting Agency Comment Performing Organization Information: Site ID: RIK Name: [employer] Address: [address] [place] [phone] Director: Jadiel Winslow D.O., MPH Mohsen Mann MD LAB BLOOD ORDERABLES Fi nal Result Performing Organization Address [facility] de Phone Number [facility] * Hepatitis A antibody, IgM (04/30/2019 10:54 AM CASING TESTER) Hep A IgM NON-REACTI VE NON-REACTI VE [facility] Comment: For additional information, please refer to http://education.[employer].Vibrow/faq/TXB195 (This link is being provided for informational/ educational purposes only.) 04/30/2019 10:5 4 AM CASING TESTER 04/30/2019 10:55 AM CASING TESTER Narrative Resulting Agency Comment Performing Organization Information: Site ID: RIK Name: [employer] Address: [address] [place] [phone] Director: Jadiel Winslow D.O. MPH Mohsen Mann MD LAB BLOOD ORDERABLES Fi nal Result Performing Organization Address [facility] de Phone Number [facility] * (ABNORMAL) Protein, Total, Random Urine w/Creatinine (Protein/Creat Ratio) (04/11/2019 1:09 PM CASING TESTER) Creatinine, Ur 58 20 - 275 mg/dL [facility] Urine Protein/Creati nine Ratio 3,397(H) 21 - 161 mg/g creat [facility] Protein/Creati nine Ratio, Urine 3.397(H) 0.021 - 0.161 mg/mg creat [facility] Protein Urine Random 197(H) 5 - 24 mg/dL [facility] 04/11/2019 1:09 PM CASING TESTER 04/11/2019 1:10 PM CASING TESTER Narrative Resulting Agency Comment Performing Organization Information: Site ID: R[place] Name: [employer] Address: [address] [place] [phone] Director: Jadiel Winslow D.O. MPH Yuliana Maradiaga NP LAB URINE ORDERABLES Final Resul t Performing Organization Address [facility] de Phone Number [facility] * (ABNORMAL) CBC and Differential (04/11/2019 1:09 PM CASING TESTER) WBC 9.3 3.8 - 10.8 Thousand/ uL [...] by t he ancillary. 04/11/2019 1:09 PM CASING TESTER 04/11/2019 1:10 PM CASING TESTER Narrative Resulting Agency Comment Performing Organization Information: Site ID: [place] Name: [employer] [employer] Address: [address] [place] [address] Director: Jadiel Winslow D.O., MPH Yuliana Maradiaga HUB ASSOCIATE LAB BLOOD ORDERABLES Final Resul t Performing Organization Address City/[facility]/ZIP Co de Phone Number [facility] * (ABNORMAL) Renal Function Panel (04/11/2019 1:09 PM CASING TESTER) Glucose 228(H) 65 - 99 mg/dL [facility] [...] - 5.1 g/dL [facility] 04/11/2019 1:09 PM CASING TESTER 04/11/2019 1:10 PM CASING TESTER Narrative Resulting Agency Comment Performing Organization Information: Site ID: [place] Name: [employer] [employer] Address: [facility] [place] [place] [address] Director: Jadiel Winslow D.O., MPH us Yuliana Maradiaga NP LAB BLOOD ORDERABLES Final Resul t Performing Organization Address City/[facility]/ZIP Co de Phone Number [facility] [...] D, (D2,D3), LC/MS/MS is recommended: order code 79327 (patients >2yrs). For more information on this test, go to: http://education.LinPrim/faq/DIF071 (This link is being provided for informational/educational purposes only.) 12/06/2018 8:34 AM CDT 12/06/2018 8:35 AM CDT Narrative Resulting Agency Comment Performing Organization Information: Site ID: R[place] Name: [facility] Address: [address] [place] [phone] Director: Jadiel Winslow D.O., MPH Tl Lawson [...] Performing Organization Information: Site ID: [place] Name: [employer] Address: [address] [place] [phone] Director: Jadiel Winslow D.O., MPH Tl L Renny HUB ASSOCIATE LAB BLOOD ORDERABLES Final Result Performing Organization Address [facility] Co de Phone Number [...] Performing Organization Information: Site ID: R[place] Name: [employer] Address: [address] [facility] [place] [address] Director: Jadiel Winslow D.O., MPH Tl Lawson HUB ASSOCIATE LAB URINE ORDERABLES Final Result Performing Organization Address [facility] de Phone Number [facility] ST[facility] [...] Performing Organization Information: Site ID: [place] Name: [employer] Address: [address] [facility] [place] [address] Director: Jadiel Winslow D.O., MPH Tl Lawson HUB ASSOCIATE LAB BLOOD ORDERABLES Final Result Performing Organization Address [facility]/ZIP Co de Phone Number [facility] * (ABNORMAL) Renal function panel (12/06/2018 [...] Performing Organization Information: Site ID: [place] Name: [employer] Address: [address] [address] Director: Jadiel Winslow D.O., MPH Tl Lawson HUB ASSOCIATE LAB BLOOD ORDERABLES Final Result Performing Organization Address City/[facility]/ZIP Co de Phone Number [facility] documented in this encounter Visit Diagnoses Diagnosis Chronic kidney disease stage 4 (HCC) documented in this encounter Care Teams Criminal Lawyer Relationship Specialty Start Date End Date Herber Hussein MD PCP - General Family Medicine 07/14/18 documented as of this encounter
--- OUTSIDE RECORDS SUMMARY | 2024-10-22 16:27 | XMS_ITS | Encounter Summary ---
Author Organization [facility], [facility] Address [address] [place] [address] Phone Care Team Providers Care Checkering Machine Adjuster Name Role Phone Herber Hussein MD Primary Care Provider [phone] Encounter Details Date Type Department Care Team (Late st Contact Info) Description 08/24/2018 Orders Only [facility] [address] [place] [address] Mohsen Mann MD [address] [place] [address] Chronic kidney disease stage 4 [...] (HCC) documented in this encounter Care Teams Checkering Machine Adjuster Relationship Specialty Start Date End Date Herber Hussein MD PCP - General Family Medicine 07/14/18 documented as of this encounter
--- OUTSIDE RECORDS SUMMARY | 2024-10-22 16:27 | XMS_ITS | Encounter Summary ---
Author Organization [facility] [facility] [employer] Address [address] [facility] [address] [place] [address] Phone Care Team Providers Care In Home Baby Sitter Name Role Phone Herber Hussein MD Primary Care Provider [phone] Encounter Details Date Type Department Care Team (Late st Contact Info) Description 08/25/2018 Orders Only [facility] [address] [place] [address] Tl Lawson NP Chronic kidney [...] (HCC) documented in this encounter Care Teams In Home Baby Sitter Relationship Specialty Start Date End Date Herber Hussein MD PCP - General Family Medicine 07/14/18 documented as of this encounter
--- OUTSIDE RECORDS SUMMARY | 2024-10-22 16:27 | XMS_ITS | Encounter Summary ---
Author Organization [facility] Address [address] [place] [address] Phone Care Team Providers Care Cloth Grader Name Role Phone Herber Hussein MD Primary Care Provider [phone] Reason for Visit * Reason Comments Med Refill Encounter Details Date Type Department Care Team (Late st Contact Info) Description 01/30/2021 Refill [facility] [address] [place] [address] Mohsen Mann MD [address] [place] [address] Social History Tobacco Use Types [...] on filedocumented in this encounter Care Teams Cloth Grader Relationship Specialty Start Date End Date Herber Hussein MD PCP - General Family Medicine 07/14/18 documented as of this encounter
--- NOTE | 2024-10-22 16:29 | W.ED.HA ---
HPI - Headache General: Chief Complaint: Headache Stated Complaint: headache Time Seen by Provider: 10/22/24 16:10 Source: patient and EMS Mode of arrival: EMS Limitations: no limitations History of Present Illness: 49-year-old female history end-stage renal disease states she has had history of migraines had a headache for the last month worsening today. States pain is currently a 7 out of 10 she denies any fevers she has had some nausea denies any worsening improving factors. Associated symptoms: Deny chest pain, fever(s), nausea, rash or vomiting Related Data Home Medications ?Medication ?Instructions ?Recorded ?Confirmed acetaminophen 325 mg capsule 650 mg PO QID PRN Pain 06/19/19 10/15/24 pantoprazole 40 mg tablet,delayed 40 mg PO BID 06/19/19 10/15/24 release sodium bicarbonate 650 mg tablet 650 mg PO DAILY PRN Dialysis 09/18/19 10/15/24 diphenhydramine HCl 25 mg capsule 25 mg PO TID PRN Itching 04/01/20 10/15/24 (Benadryl) melatonin 10 mg capsule 10 mg PO BEDTIME 01/21/23 10/15/24 ropinirole 0.25 mg tablet 0.25 mg PO BEDTIME 01/21/23 10/15/24 vit B,C-folic ac 800 mcg-zinc 12.5 1 tab PO DAILY 01/21/23 10/15/24 mg-selen-D3 2,000 unit-vit E tablet (RenaPlex-D) amlodipine 10 mg tablet 10 mg PO DAILY 03/22/24 10/15/24 citalopram 20 mg tablet 20 mg PO DAILY 03/22/24 10/15/24 semaglutide 1 mg/dose (4 mg/3 mL) 1 mg SUBCUT Q7D 10/15/24 10/15/24 subcutaneous pen injector (Ozempic) Held on 10/17/24. Instructions: see pcp Previous Rx's ?Medication ?Instructions ?Recorded albuterol sulfate 90 mcg/actuation 2 inh inhalation QID shortness of 09/04/24 aerosol inhaler breath #8.5 grams ondansetron 4 mg disintegrating 4 mg PO Q6H PRN nausea and 09/26/24 tablet vomiting #14 tabs alprazolam 0.25 mg tablet (Xanax) 0.25 mg PO BID PRN Anxiety and 10/17/24 nausea #10 tabs folic acid 1 mg tablet 1,000 mcg PO DAILY #30 tabs 10/17/24 thiamine mononitrate (vit B1) 100 100 mg PO DAILY #30 tabs 10/17/24 mg tablet (Vitamin B-1 (mononitrate)) Allergies Allergy/AdvReac Type Severity Reaction Status Date / Time sulfamethoxazole (From Allergy Severe ALGY-Rash Verified 09/18/24 10:58 Sulfamethoxazole-Trimethoprim) trimethoprim (From Allergy Severe ALGY-Rash Verified 09/18/24 10:58 Sulfamethoxazole-Trimethoprim) adhesive tape Allergy Unknown blisters Verified 09/18/24 10:58 Cephalosporins Allergy Unknown unknown Verified 09/18/24 10:58 doxycycline Allergy ADR-Vomitin Verified 09/18/24 10:58 g latex Allergy blisters Verified 09/18/24 10:58 Sulfa (Sulfonamide Allergy Unknown Verified 10/16/24 07:58 Antibiotics) Review of Systems Const: Denies: fever(s), chills, body aches or change in appetite Eyes: Denies: blurry vision or eye discomfort ENMT: Denies: throat pain or dental pain Card: Denies: chest pain Resp: Denies: dyspnea GI: Denies: abdominal pain, nausea, vomiting or diarrhea Musc: Denies: neck pain or back pain Skin/Breast: Denies: rash Neuro: Reports: headache(s) PFSH ED PFSH: Medical History Tachycardia Diabetes Deep vein thrombosis (DVT) during Chronic anticoagulation Squamous cell carcinoma of anal canal Diabetes mellitus End-stage renal disease Surgical History Status post surgery (05/19/20) Removal of peritoneal dialysis catheter Port-A-Cath in place S/P hemodialysis catheter insertion (01/09/20) Removed 11/18/2020 Peritoneal dialysis status H/O colonoscopy H/O hand surgery History of hip surgery History of hysterectomy Family History Other Cancer Diabetes Denies family history of Anesthesia complication Bleeding disorder Social History Smoking and tobacco/nicotine status: current every day tobacco/nicotine user Alcohol intake: never Substance/Drug Use: never Household members: family Marital status: Single Current occupational status: disabled Physical Exam Const: COMMON NORMALS: no acute distress, patient oriented x3 and healthy appearing HENMT: COMMON NORMALS: normocephalic and atraumatic HEAD & SCALP: normocephalic and atraumatic Eye: COMMON NORMALS: Equal, round and reactive pupils present and EOMs intact bilaterally PUPIL: Yes Equal, round and reactive pupils present Neck/C-Spine: COMMON NORMALS: full ROM and supple Chest: COMMONS NORMALS: normal inspection of the chest and normal palpation of entire chest wall Resp: COMMON NORMALS: normal respiratory effort, No retractions, No use of accessory muscles and clear to auscultation bilaterally AUSCULTATION: clear to auscultation bilaterally Cardio: COMMON NORMALS: regular rate, regular rhythm and No murmurs present (Cardio) RATE: regular rate RHYTHM: regular rhythm GI: COMMON NORMALS: Normal to inspection, nondistended, normoactive bowel sounds present, Soft to palpation, non-tender and no masses PALPATION: Yes Soft to palpation Extremity: COMMON NORMALS: normal to inspection and full ROM Neuro: COMMON NORMALS: patient oriented x3, moves all extremities and no focal motor deficits Psych: COMMON NORMALS: mental status grossly normal, Normal thought process present and cooperative THOUGHT PROCESS: Normal thought process present Skin: COMMON NORMALS: no rashes or lesions noted and no wounds GENERAL SKIN EXAM: no rashes or lesions noted Course Vital Signs: Vital signs: Vital Signs Temperature 98.8 F 10/22/24 16:40 Pulse Rate 90 10/22/24 17:04 Respiratory Rate 18 10/22/24 17:04 Blood Pressure 176/72 10/22/24 17:04 Pulse Oximetry 100 10/22/24 17:04 Oxygen Delivery Me thod Room Air 10/22/24 17:04 MDM - Headache Medical Decision Making Patient presents here with headache head CT blood work here is all normal she is well-appearing here she stable for discharge follow-up PCP return if worsening. She has no signs of meningitis or subarachnoid hemorrhage Medical Records I reviewed the patient's medical records. Lab Data I reviewed the patient's lab results. 10/22/24 16:40 10/22/24 16:[address] 10/22/24 16:13 IMPRESSION: 1. No acute intracranial abnormality. 2. Left maxillary sinusitis, possibly acute. Laboratory Results WBC 5.05 10^3/uL (3.29-11.43) 10/22/24 16:40 RBC 3.62 10^6/uL (3.85-5.65) L 10/22/24 16:40 Hgb 12.20 g/dL (11.27-16.99) 10/22/24 16:40 Hct 35.9 % (36-47) L 10/22/24 16:40 MCV 99.2 fl (85-98) H 10/22/24 16:40 MCH 33.7 pg (27-33) H 10/22/24 16:40 MCHC 34.0 g/dL (30-55) 10/22/24 16:40 RDW 14.8 % (12.1-15.1) 10/22/24 16:40 Plt Count 148 10^3/cmm (157-399) L 10/22/24 16:40 MPV 9.0 fL (7.4-10.4) 10/22/24 16:40 Neut % (Auto) 56.4 % 10/22/24 16:40 Lymph % (Auto) 32.1 % 10/22/24 16:40 [place] % (Auto) 8.3 % 10/22/24 16:40 Eos % (Auto) 2.2 % 10/22/24 16:40 Baso % (Auto) 0.6 % 10/22/24 16:40 Neut # (Auto) 2.85 10^3/uL (1.8-7.7) 10/22/24 16:40 Lymph # (Auto) 1.6 10^3/uL (0.8-4.8) 10/22/24 16:40 [place] # (Auto) 0.4 10^3/uL (0.2-0.9) 10/22/24 16:40 Eos # (Auto) 0.1 10^3/uL (0.0-0.8) 10/22/24 16:40 Baso # (Auto) 0.0 10^3/uL (0.0-0.1) 10/22/24 16:40 Nucleated RBC % (auto) 0 % 10/22/24 16:40 Nucleated RBCs # 0.0 /100WBC 10/22/24 16:40 Sodium 144 mmol/L (136-145) 10/22/24 16:40 Potassium 3.6 mmol/L (3.5-5.1) 10/22/24 16:40 Chloride 100 mmol/L (98-107) 10/22/24 16:40 Carbon Dioxide 30 mmol/L (22-29) H 10/22/24 16:40 Anion Gap 17.6 (5-19) 10/22/24 16:40 BUN 13 mg/dL (6-20) 10/22/24 16:40 Creatinine 3.0 mg/dL (0.5-0.9) H 10/22/24 16:40 GFR Calculation 16.5 mL/min (90-130) L 10/22/24 16:40 Glucose 130 mg/dL (65-115) H 10/22/24 16:40 Calculated Osmolality 300 mOsm/kg (285-295) H 10/22/24 16:40 Calcium 9.1 mg/dL (8.5-10.5) 10/22/24 16:40 Total Bilirubin 0.5 mg/dL (0.15-1.2) 10/22/24 16:40 AST 19 U/L (0-32) 10/22/24 16:40 ALT 18 U/L (0-33) 10/22/24 16:40 Alkaline Phosphatase 58 U/L (35-105) 10/22/24 16:40 Total Protein 6.8 g/dL (6.6-8.7) 10/22/24 16:40 Albumin 4.3 g/dL (3.5-5.2) 10/22/24 16:40 Globulin 2.5 g/dL (1.3-4.6) 10/22/24 16:40 All radiology interpretation(s) finalized by discharge Discharge Plan Discharge Patient Disposition: Home Clinical Impression: Headache Condition: Stable Prescriptions: No Action diphenhydramine HCl [Benadryl] 25 mg capsule 25 mg PO TID PRN (Reason: Itching) acetaminophen 325 mg capsule 650 mg PO QID PRN (Reason: Pain) pantoprazole 40 mg tablet,delayed release (DR/EC) 40 mg PO BID sodium bicarbonate 650 mg tablet 650 mg PO DAILY PRN (Reason: Dialysis) albuterol sulfate 90 mcg/actuation HFA aerosol inhaler 2 inh inhalation QID Qty: 8.5 4RF ropinirole 0.25 mg Tablet 0.25 mg PO BEDTIME melatonin 10 mg Capsule 10 mg PO BEDTIME RenaPlex-D 800 mcg-12.5 mg -2,000 unit Tablet 1 tab PO DAILY amlodipine 10 mg tablet 10 mg PO DAILY citalopram 20 mg tablet 20 mg PO DAILY ondansetron 4 mg tablet,disintegrating 4 mg PO Q6H PRN (Reason: nausea and vomiting) Qty: 14 0RF Ozempic 1 mg/dose (4 mg/3 mL) pen injector 1 mg SUBCUT Q7D thiamine mononitrate (vit B1) [Vitamin B-1 (mononitrate)] 100 mg Tablet 100 mg PO DAILY Qty: 30 0RF alprazolam [Xanax] 0.25 mg tablet 0.25 mg PO BID PRN (Reason: Anxiety and nausea) Qty: 10 0RF folic acid 1 mg tablet 1,000 mcg PO DAILY Qty: 30 0RF Discharge Orders: Discharge ED (Routine); Ordered 10/22/24 Ordered By: Nohemi Rivero Referrals: Herber Hussein MD [Primary Care Provider, Family Practice] Discharge Diet: Advance as tolerated Discharge Activity: Resume usual activity Patient Instructions: General Headache (ED) Print Language: Hebrew Coding Level of Care Code ED Program Manager Rn for Chuy Fitch
[2024-10-22] MEDS: ondansetron 2 mg/ML SDV 2 mL 4 MG IVP (16:38)
[2024-10-22 16:40] VITALS: BP 170/87; PULSE 100; RESP 16; RESP 18; TEMP 37.1; O2SAT 100
[2024-10-22] MEDS: morphine 4 mg/mL SDV 1 mL IVP (16:40)
[2024-10-22 16:47] LABS: Hematocrit 35.9 % (36-47); Hemoglobin 12.20 g/dL (11.27-16.99); Mean Corpuscular HGB Conc 34.0 g/dL (30-55); Mean Corpuscular Hemoglobin 33.7 pg (27-33); Mean Corpuscular Volume 99.2 fl (85-98); Nucleated Red Blood Cells % 0 %; Platelet Count 148 10^3/cmm (157-399); Red Blood Count 3.62 10^6/uL (3.85-5.65); White Blood Count 5.05 10^3/uL (3.29-11.43)
[2024-10-22 17:04] VITALS: BP 176/72; PULSE 90; RESP 18; O2SAT 100
[2024-10-22 17:10] LABS: Alanine Aminotransferase 18 U/L (0-33); Albumin Level 4.3 g/dL (3.5-5.2); Alkaline Phosphatase 58 U/L (35-105); Anion Gap 17.6 (5-19); Aspartate Amino Transferase 19 U/L (0-32); Blood Urea Nitrogen 13 mg/dL (6-20); Calcium 9.1 mg/dL (8.5-10.5); Carbon Dioxide 30 mmol/L (22-29); Chloride 100 mmol/L (98-107); Creatinine Clr Calc Pharmacy 23.3851; Globulin 2.5 g/dL (1.3-4.6); Glucose 130 mg/dL (65-115); Osmolality Calculated 300 mOsm/kg (285-295); Potassium 3.6 mmol/L (3.5-5.1); Sodium 144 mmol/L (136-145); Total Protein 6.8 g/dL (6.6-8.7)
[2024-10-22] MEDS: diphenhydrAMINE 50 mg/mL SDV 1mL IM (17:50)
[2024-10-22] MEDS: metoclopramide 5 mg/mL SDV 2 mL 10 MG IM (17:50)
[2024-10-22 18:06] VITALS: BP 163/71; PULSE 91; O2SAT 100
== END 2024-10-22 18:08 | disposition home or self-care (01) ==
PROVIDERS: Emergency Provider Emergency Medicine; PCP Family Medicine
DX: R51.9 Headache, unspecified (principal); Z72.0 Tobacco use; E11.22 Type 2 diabetes mellitus with diabetic chronic kidney disease; N18.6 End stage renal disease; Z85.048 Personal history of other malignant neoplasm of rectum, rectosigmoid junction, and anus
CPT/HCPCS: 70450; 80053; 85025; 96372; 96374; 96375; 99285; J1200; J2270; J2405; J2765

== ENCOUNTER 2024-11-13 07:55 | Outpatient (CLI) | payer MEDICARE, MEDICAID, SELFPAY ==
--- NOTE | 2024-11-13 08:02 | NM_ITS ---
WS: [id number] NUCLEAR MEDICINE HIDA SCAN WITH GALLBLADDER EJECTION FRACTION HISTORY: RUQ PAIN COMPARISON: None available. TECHNIQUE: The patient was intravenously injected with 8.4 mCi of TC99m Mebrofenin. Immediate imaging over the right upper quadrant was followed by 5 minute image and additional images for a total of 60 minutes. Normal uptake of radiotracer throughout the liver. Activity identified in the gallbladder at 50 minutes and remains contracted at 60 minutes. Activity in the proximal small bowel was seen by 10 minutes. Good washout of the radiotracer from the liver by 60 minutes. The patient then drank 8 ounces of Ensure Plus. Ejection fraction at 60 minutes was 12%. Normal GB ejection fraction is 35-75%. Post fatty meal symptoms: None. NM/NM hepatobiliary w phar* [id number] IMPRESSION: 1. Abnormal gallbladder ejection fraction. Suspect chronic cholecystitis. 2. No common bile duct obstruction. 3. Small caliber gallbladder did not distend well to this examination. Suspect chronic cholecystitis. Suggest ultrasound evaluation to evaluate for stones.
== END 2024-11-13 07:56 | disposition home or self-care (01) ==
LOC: RAD 07:58
PROVIDERS: PCP Family Medicine; Visit Provider Family Medicine
DX: R10.11 Right upper quadrant pain (principal); R93.2 Abnormal findings on diagnostic imaging of liver and biliary tract
CPT/HCPCS: 78227; A9537

== ENCOUNTER 2024-11-17 16:12 | Emergency (ER) | payer MEDICARE, MEDICAID, SELFPAY ==
[2024-11-17] VITALS (7 sets, daily range): BP systolic 147–166; BP diastolic 68–87; PULSE 98–112; RESP 16–20; TEMP 36.4; O2SAT 93–97; BMI 22.1
--- NOTE | 2024-11-17 16:17 | XRR_ITS ---
PROCEDURE INFORMATION: Exam: XR Chest Exam date and time: 11/17/2024 5:10 PM Age: 49 years old Clinical indication: Shortness of breath; Prior surgery; Surgery date: 6+ months; Surgery type: Port-a-cath; Additional info: SOB TECHNIQUE: Imaging protocol: Radiologic exam of the chest. Views: 1 view. COMPARISON: CR XR chest 1V portable [id number] 10/15/2024 1:23 PM FINDINGS: Tubes, catheters and devices: Left-sided port in place, tip in the distal SVC. Lungs: Slight interstitial prominence and reticulonodular opacities bilaterally. No discrete consolidation. Pleural spaces: No appreciable pleural effusion. No pneumothorax. Heart/Mediastinum: Stable cardiomediastinal contours. Bones/joints: No acute osseous findings. XR/XR chest 1V portable [id number] IMPRESSION: Interstitial prominence and reticulonodular opacities about the periphery could reflect atypical infectious/inflammatory process or trace interstitial edema.
--- OUTSIDE RECORDS SUMMARY | 2024-11-17 16:19 | XMS_ITS | Encounter Summary ---
Author Organization [facility] Address [address] [place] [address] Phone Care Team Providers Care Serging Machine Operator Automatic Name Role Phone Herber Hussein MD Primary Care Provider [phone] Reason for Visit * Reason Comments Med Refill Encounter Details Date Type Department Care Team (Late st Contact Info) Description 02/21/2024 Refill [facility] [address] [place] [address] Bee Chavarria MD [address] [place] [address] Social History Tobacco Use Types [...] on filedocumented in this encounter Care Teams Serging Machine Operator Automatic Relationship Specialty Start Date End Date Herber Hussein MD [address] [place] [address] PCP - General Family Medicine 07/14/18 documented as of this encounter
--- OUTSIDE RECORDS SUMMARY | 2024-11-17 16:19 | XMS_ITS | Encounter Summary ---
Author Organization [email or web address] Address [address] [place] [address] Phone Care Team Providers Care Pit Tanner Name Role Phone Herber Hussein MD Primary Care Provider [phone] Encounter Details Date Type Department Care Team (Late st Contact Info) Description 11/14/2024 Orders Only [facility] [address] [place] [address] Bee Chavarria MD [address] [place] [address] Social History Tobacco Use Types [...] Priority Date/Time Associated Diagnosis Comments HEMATOLOGY Routine 11/14/2024 documented in this encounter Results * (ABNORMAL) HEMATOLOGY (11/14/2024) Hemoglobin 8.0(L) 12.0 - 16.0 g/dL [facility] Hemoglobin x 3 24(L) 36.0 - 48.0 % [facility] 11/14/2024 11/15/2024 10: 53 AM CDT Narrative ALISSA - 11/15/2024 Unless otherwise specified, test(s) performed at: [email or web address], [address] [place] [address] DUCO POLISHER: Michael Knox M.D. For any questions, please call customer service at FREQUENCY:OTHER Resulting Agency Comment Specimen source: Blood us Bee Chavarria MD LAB BLOOD ORDERABLES Final Re sult [facility] [employer] [facility] See order comments or contact performing lab Unknown, [place] documented in this encounter Visit Diagnoses Not on filedocumented in this encounter Care Teams Pit Tanner Relationship Specialty Start Date End Date Herber Hussein MD [address] [place] [address] PCP - General Family Medicine 07/14/18 documented as of this encounter
--- OUTSIDE RECORDS SUMMARY | 2024-11-17 16:19 | XMS_ITS | Encounter Summary ---
Author Organization [facility] [facility] Address [address] [place] [address] Phone Care Team Providers Care Otm Consultant Name Role Phone Herber Hussein MD Primary Care Provider [phone] Reason for Visit * Reason Comments Med Refill Encounter Details Date Type Department Care Team (Late st Contact Info) Description 02/08/2024 Refill [facility] [address] [place] [id number] Bee Chavarria MD [address] [place] [address] Social History Tobacco Use Types [...] (02/08/2024) Hemoglobin 8.9(L) 12.0 - 16.0 g/dL [facility] Hemoglobin x 3 26.7(L) 36.0 - 48.0 % [facility] 02/08/2024 02/09/2024 12: 25 PM ALUMNI SECRETARY Narrative [facility] - 02/09/2024 Unless otherwise specified, test(s) performed at: [facility], [address] [place], [place] [id number] SHAKE LOADER: Michael Knox M.D. For any questions, please call customer service at FREQUENCY:OTHER Resulting Agency Comment Specimen source: Blood us Bee Chavarria MD LAB BLOOD ORDERABLES Final Re sult [employer] See order comments or contact performing lab Unknown, [place] documented in this encounter Visit Diagnoses Not on filedocumented in this encounter Care Teams Otm Consultant Relationship Specialty Start Date End Date Herber Hussein MD [address] [place] [address] PCP - General Family Medicine 07/14/18 documented as of this encounter
--- OUTSIDE RECORDS SUMMARY | 2024-11-17 16:19 | XMS_ITS | Encounter Summary ---
Author Organization [place] [facility] Address [address] [place] [address] Phone Care Team Providers Care Triage Nurse Name Role Phone Herber Husesin MD Primary Care Provider [phone] Encounter Details Date Type Department Care Team (Late st Contact Info) Description 11/05/2024 TCM in Dialysis [facility] [employer], [facility] [address] [place] [address] Fabiana Butts, [place] [address] [place] [address] Social History Tobacco Use Types [...] as of this encounter Progress Notes * Fabiana Butts NP - 11/05/2024 12:00 AM CDT Patient: Bharati Serna Raj : 1975 VBC: [facility] Note Type: Dialysis TCM Service Date: 11/05/2024 The patient was seen for a [id number] visit as part of Transitional Care Management services. Attending Wound Care Coordinator: RODDY HENDERSON Dialysis Location: [facility] Schedule: Shift: 1 INTERACTIVE CONTACT Contact with the patient or caregiver was made or attempted within 2 business days of discharge - details in the medical record. COMMENTS: HORACIO bailey [facility] called patient, reviewed and updated medications, reviewed home needs which patient denied. HOSPITALIZATION SUMMARY Patient transitioned from: Hospital Patient transitioned to: Home Admit Date: 10/28/2024 Discharge Date: 11/01/2024 Discharged info reviewed: No outstanding diagnostic tests and treatments Reason for admission: Coffee ground emesis HOME MEDICATIONS Discharge med list reviewed - changes reconciled and discussed with patient. Active treatment medication orders reviewed - no changes. COMMENTS: Given metoclopramide and ondansetron Current [facility] Out[facility] Medications acetaminophen (TYLENOL) tablet Take 500 mg by mouth every 6 (six) hours if needed for mild pain Start Date: ALPRAZolam (NIRAVAM) dispersible tablet Take 0.25 mg by mouth at night if needed for anxiety Start Date: amLODIPine (NORVASC) 10 MG tablet Take 1 tablet (10 mg total) by mouth 1 (one) time each day Start Date: 12/12/2018 apixaban (ELIQUIS) tablet Take 2.5 mg by mouth 2 (two) times a day Start Date: carvedilol (COREG) tablet Take 25 mg by mouth in the morning and 25 mg in the evening. Take with meals. Start Date: citalopram (CeleXA) tablet Take 10 mg by mouth 1 (one) time each day Start Date: diphenhydrAMINE (BENADRYL) capsule Take 25 mg by mouth every 6 (six) hours if needed for itching Start Date: hydrALAZINE (APRESOLINE) tablet Take 25 mg by mouth in the morning and 25 mg in the evening and 25 mg before bedtime. Start Date: MELATONIN 5 MG PO CAPS Take by mouth Start Date: metoclopramide (REGLAN) tablet Take 5 mg by mouth in the morning and 5 mg at noon and 5 mg in the evening. Start Date: ondansetron (ZOFRAN) 4 MG tablet Take 1 tablet (4 mg total) by mouth every 6 (six) hours if needed for nausea or vomiting Start Date: 04/30/2019 pantoprazole (PROTONIX) EC tablet Take 40 mg by mouth 1 (one) time each day before breakfast Do not crush, chew, or split. Start Date: RENAPLEX PO TABS Take by mouth Start Date: rOPINIRole (REQUIP) tablet Take 0.25 mg by mouth in the morning and 0.25 mg in the evening and 0.25 mg before bedtime. Start Date: sevelamer (RENAGEL) tablet Take 800 mg by mouth in the morning and 800 mg at noon and 800 mg in the evening. Take with meals. Swallow tablet whole; do not crush, break, or chew. Start Date: sodium bicarbonate 650 MG tablet Start Date: Current [facility] Allergies Allergen: ADHESIVE TAPE Allergen: CEPHALEXIN Reaction: Rash Severity: High Allergen: CEPHALOSPORINS Reaction: Rash Severity: Low Allergen: LATEX Reaction: Rash Severity: High TREATMENT MEDICATIONS ORDERS Iron Sucrose (Venofer) 50 mg IVP 1X Week 05/28/2024 - 05/27/2025 Vitamin D (Calcitriol) Oral 1.0 mcg ORAL Every Treatment 08/29/2024 - 08/28/2025 PHYSICAL EXAM Exam performed. Vital Signs Reviewed. Lungs - Clear. CV - Blood pressure noted. No edema. COMMENTS: NAD. Reports eating well for last 3-4 days, with no nausea/ vomiting, no diarrhea. DIALYSIS PRESCRIPTION Dry weight during admission reviewed - no change to EDW. Treatment Data Treatment Date: 11/05/2024 started at: 6:51 AM Dialysate / Machine Temp (prescribed): 37.0*C Dialysate / Machine Temp (actual): 35.5*C BFR (prescribed): 450 BFR (actual): 450 DFR (prescribed): Autoflow 2.0 DFR (actual): 800 Prescribed Time: 02:45 EDW (kg): 62.5 Dialyzer: 180NRe Optiflux Dialysate: 3.0 K, 2.5 Ca, 1.0 Mg, 100 Dextrose (G3251) Sodium: 137 Bicarb: 40 Pre Dialysis Vitals Pre BP Sit: 160/87 Pre Wt (kg): 66.1 EDW Deviation (kg): 3.6 Temp: 98.4*F Current Dialysis Vitals BP Sit: 129/65 AP/MOMD TEACHER: 188/194 Pulse: 108 CARE COORDINATION Post-discharge follow-up appointments reviewed with the patient. COMMENTS: Follow up within the next 10 days with PCP and GI EDUCATION Education relevant to the discharge diagnosis provided to the patient or caregiver IMPRESSION & PLAN COMMENTS: Obtain Hgb today, assess for adjustments to DORINDA/iron replacement based upon results. VISIT DIAGNOSES CPT Code 95022 - High complexity, seen within 7 days of discharge. K92.0 Hematemesis K31.84 Gastroparesis Signed by: FABIANA BUTTS NP on 11/05/2024 at 08:19:48 AM Transcribed by: FABIANA BUTTS NP on 11/05/2024 at 08:19:48 AM documented in this encounter Plan of Treatment Not on file documented as of this encounter Visit Diagnoses Not on filedocumented in this encounter Care Teams Triage Nurse Relationship Specialty Start Date End Date Herber Hussein MD [address] [place] [address] PCP - General Family Medicine 07/14/18 documented as of this encounter
--- OUTSIDE RECORDS SUMMARY | 2024-11-17 16:19 | XMS_ITS | Encounter Summary ---
Author Organization [facility], [facility] Address [address] [place] [address] Phone Care Team Providers Care Development Geologist Name Role Phone Herber Hussein MD Primary Care Provider [phone] Encounter Details Date Type Department Care Team (Late st Contact Info) Description 11/12/2024 Treatment [facility] [address] [place] [address] Ana Viramontes NP [address] [place] [address] End stage renal disease; Dependence [...] encounter Miscellaneous Notes * Dialysis Note - Ana Viramontes NP - 11/12/2024 12:00 AM CDT Patient: Bharati Anthony, 1975, 49y, F Dialysis Location: [facility] Attending Agricultural Economics Teacher: Bee Chavarria Service Date: 11/12/2024 Service Provider: Ana Viramontes NP I met face to face with the patient today. OVERVIEW The patient presented with ESRD on dialysis Primary cause of renal failure: Type 2 diabetes mellitus with diabetic chronic kidney disease Comments: VSS, seen on HD machine Reporting intermittent coughing up blood. Advised to report to pcp for assessment/follow up. For HIDA scan ordered per her PCP. LAST HOSPITALIZATION Discharge Diagnosis: K31.84 Gastroparesis Admission Date 10/28/24 Discharge Date 11/01/24 TRANSPLANT Comments: She has received paperwork from [facility] for transplant. She has now decided again against tranplant. Ongoing discussions. DIALYSIS PRESCRIPTION IHD 3x Week Start date: 11/12/24 Dialyzer: 180NRe Optiflux BFR: 450 DFR: Autoflow 2 Potassium: 3.0 Sodium: 137 EDW: 71 Duration: 2:45 Calcium: 2.5 Bicarb: 40 Rx updated on: 11/12/2024 TREATMENT ASSESSMENT Comments: Stable Blood pressure controlled. No changes indicated. BP Stand Pre 11/12/2024: 144/52 11/09/2024: 149/65 11/07/2024: 146/63 BP Sit Pre 11/12/2024: 141/115 11/09/2024: 144/86 11/07/2024: 138/61 BP Stand Post 11/12/2024: 132/70 11/09/2024: 130/68 11/07/2024: 131/63 BP Sit Post 11/12/2024: 144/73 11/09/2024: 143/82 11/07/2024: 132/78 Tx Duration 11/12/2024: 2:52 11/09/2024: 2:46 11/07/2024: 2:43 Missed Treatments 0 - last 30 days 1 - last 60 days 09/24 - recent FLUID ASSESSMENT Comments: Stable EDW (kg) 11/12/2024: 62.5 11/09/2024: 62.5 11/07/2024: 62.5 Weight Pre (kg) 11/12/2024: 71.6 11/09/2024: 72.2 11/07/2024: 68.4 Weight Post (kg) 11/12/2024: 71.0 11/09/2024: 71.2 11/07/2024: 68.5 PWV (kg) 11/12/2024: 8.5 11/09/2024: 8.7 11/07/2024: 6.0 UF Rate (mL/kg/hr) 11/12/2024: 2.9 11/09/2024: 5.1 11/07/2024: -0.5 ADEQUACY ASSESSMENT Comments: Stable trend. spKt/V, URR 10/24/2024: 1.42, 74.0 09/26/2024: 1.64, 80.0 08/24/2024: 1.67, 79.0 ACCESS ASSESSMENT Access Type: AVFistula Access SubType: Transposed Access Status: Active (In Use) - 10/27/2020 Access Location: Right Thigh Created: 08/19/2020 Flow 08/29/2024: ?199908/10/2024: ?199908/08/2024: ?1999 Vascular access reviewed. Current access is permanent and functioning well. ANEMIA ASSESSMENT Comments: On IV iron and DORINDA protocol. HGB 11/07/2024: 9.4 11/05/2024: 10.3 11/02/2024: 12.4 Ferritin 08/24/2024: 1622.0 08/15/2024: 1808.0 05/23/2024: 1045.0 Epoetin Mata (Epogen), IVP (units) 10/19/2024: 4400 10/15/2024: 4400 10/12/2024: 5800 Iron Sucrose (Venofer) (mg) 11/05/2024: 50 11/02/2024: 50 10/22/2024: 50 BMM ASSESSMENT Comments: PTH improving Phos and Ca at goal. PTH, Intact 08/24/2024: 446.0 05/23/2024: 534.0 Calcium, Phosphorus 10/24/2024: 9.7, 5.9 09/19/2024: 8.9, 5.4 08/24/2024: 8.3, 4.6 Vitamin D (Calcitriol) Oral (mcg) 11/09/2024: 1.0 11/07/2024: 1.0 11/05/2024: 1.0 NUTRITION ASSESSMENT Comments: Stable at goal. Potassium, Albumin 10/24/2024: 3.8, 4.3 09/19/2024: 3.8, 4.1 08/24/2024: 3.7, 3.7 eNPCR 10/24/2024: 0.53 09/26/2024: 0.91 08/24/2024: 0.7 DIAGNOSIS Chief Complaint: N18.6 End stage renal disease Patient data updated 11/12/2024 at 12:09 PM Signed By: Ana Viramontes NP on 11/12/2024 12:10:55 PM documented in this encounter Plan of Treatment Not on file documented as of this encounter Visit Diagnoses Diagnosis End stage renal disease Dependence on renal dialysis documented in this encounter Care Teams Development Geologist Relationship Specialty Start Date End Date Herber Hussein MD [address] [place] [address] PCP - General Family Medicine 07/14/18 documented as of this encounter
--- OUTSIDE RECORDS SUMMARY | 2024-11-17 16:20 | XMS_ITS | Encounter Summary ---
Author Organization [facility] Address [address] [place] [address] Phone Care Team Providers Care Medical Nurse Name Role Phone Herber Hussein MD Primary Care Provider [phone] Encounter Details Date Type Department Care Team (Late st Contact Info) Description 11/08/2018 Orders Only [facility] [address] [place] [address] Sherry Lau MA [address] [place] [address] Chronic kidney disease stage 4 [...] Agency Comment Performing Organization Information: Site ID: [id number] Name: [facility] Address: [address] [facility] [place] [address] Director: Jadiel Winslow D.O., MPH us Mohsen [...] Performing Organization Information: Site ID: [id number] Name: [facility] Address: [address] [place] [id number] Director: Jadiel Winslow D.O., MPH Mohsen Mann [...] Performing Organization Information: Site ID: [id number] Name: [facility] Address: [address] [id number] Director: Jadiel Winslow D.O., MPH us Mohsen Mann MD LAB BLOOD ORDERABLES Fi nal Result CYNDIE STJuan AGEE documented in this encounter Visit Diagnoses Diagnosis Chronic kidney disease stage 4 (HCC) Essential hypertension documented in this encounter Care Teams Medical Nurse Relationship Specialty Start Date End Date Herber Hussein MD [address] [place] [address] PCP - General Family Medicine 07/14/18 documented as of this encounter
--- OUTSIDE RECORDS SUMMARY | 2024-11-17 16:20 | XMS_ITS | Encounter Summary ---
Author Organization [facility] Address [address] [place] [address] Phone Care Team Providers Care Anesthesiology Medical Doctor Name Role Phone Herber Hussein MD Primary Care Provider [phone] Reason for Visit * Reason Comments Med Refill Encounter Details Date Type Department Care Team (Late st Contact Info) Description 01/30/2021 Refill [facility] [address] [place] [address] Mohsen Mann MD [address] [place] [address] Social History Tobacco Use Types [...] on filedocumented in this encounter Care Teams Anesthesiology Medical Doctor Relationship Specialty Start Date End Date Herber Hussein MD [address] [place] [address] PCP - General Family Medicine 07/14/18 documented as of this encounter
--- OUTSIDE RECORDS SUMMARY | 2024-11-17 16:20 | XMS_ITS ---
Author Name [facility] Address [address] [place] [address] Phone [phone] Organization [facility] e, NA DOCUMENT DISCLAIMER Multiple document versions may exist, please be sure you review the latest version. The information in the [facility] Continuity of Care Document represents a summary of certain health and medical information. It may not contain the complete medical history for the patient and should be independently verified. The represented time in the document is Eastern Time. PROBLEMS Problem Code Status Onset Date Gastroparesis K31.84 Active November 02 Nausea with vomiting, unspecified R11.2 Active October 05, 2024 Gastroparesis K31.84 Active September 27, 2024 Hypertensive chronic kidney disease with stage 5 chronic kidney disease or end stage renal disease I12.0 Active December 12, 2023 Restless legs syndrome G25.81 Active Augus 2023 Type 2 diabetes mellitus with diabetic [...] hypoxia J96.01 Ac tive June 06, 2023 Tachycardia, unspecified R00.0 Active [...] infection, unspecified site A49.02 Active June 17 Vitamin D deficiency, unspecified E55.9 Active April [...] Epoetin Mata (Epogen) During Dialysis, 3X Week 3400 units Intravenous - push November 12, 2024 November 11, 2025 Discontinued Epoetin Mata (Epogen) During Dialysis, 3X Week 4400 units Intravenous - push October 15, 2024 October 14, 2025 Discontinued Home Medications Medication Instructions Dosage Route Start Date End Date Stat acetaminophen 500 mg Take by mouth four times a day 1 tablet ORAL November 05, 2024 Active alprazolam 0.25 mg Take by mouth [...] 1 tablet ORAL August 24, 2023 Active citalopram 40 mg Take by mouth every morning 1 tablet ORAL November 01, 2024 Active diphenhydramine HCl 25 mg Take by mouth every six hours as needed 1 tablet ORAL November 01, 2024 Active diphenoxylate-at ropine 2.5-0.025 mg Take by mouth four times a day as needed 1 tablet ORAL January 20, 2024 Active Eliquis 2.5 mg Take by mouth twice a day 1 tablet ORAL September 21, 2023 Active folic acid 1 mg Take by mouth once a day 1 tablet ORAL October 24, 2024 Active hydralazine 25 mg Take by mouth three times a day 1 tablet ORAL May 06, 2021 Active melatonin 5 mg Take by mouth every night as needed 2 tablet ORAL November 01, 2024 Active metoclopramide HCl 5 mg Take by mouth three times a day 1 tablet ORAL November 01, 2024 Active ondansetron HCl 4 mg Take by mouth every eight hours as needed 1 tablet ORAL August 02, 2023 Active Ozempic 1 mg/dose (2 mg/1.5 mL) Inject subcutaneously once a week 1 mg subcutaneously July 19, 2022 Active promethazine 25 mg Take by mouth every four hours as needed 1 tablet ORAL December 21, 2023 Active Protonix 40 mg Take by mouth once a day as directed 1 tablet ORAL November 01, 2024 Active RenaPlex-D 800 mcg-12.5 mg-2,000 unit Take by mouth once a day as directed 1 tablet ORAL May 21, 2019 Active ropinirole 0.25 mg Take by mouth at bedtime 1 tablet ORAL March 19, 2020 Active scopolamine base 1 mg over 3 days Apply to skin every 72 hours 1 patch TRANSDERMAL October 26, 2024 Active Sevelamer Carbonate Tablet 800 mg Take By Mouth Three times a day With Meals 2 Tablet By Mouth March 29, 2024 March 26, 2025 Active sodium bicarbonate 650 mg Take by mouth three times a day as needed 1 tablet ORAL November 29, 2022 Active thiamine HCl (vitamin B1) 100 mg Take by mouth once a day 1 capsule ORAL October 24, 2024 Active Ventolin HFA 90 mcg/actuation Inhale as directed every six hours as needed 2 puff INHALATION September 04, 2024 Active Celexa 20 mg Take by mouth once a day 1 tablet ORAL November 05, 2024 Discontinued diphenhydramine HCl 50 mg Take by mouth every four hours as needed 1 capsule ORAL October 24, 2024 November 05, 2024 Discontinued melatonin 10 mg Take by mouth at bedtime as needed 1 capsule ORAL November 05, 2024 Discontinued Reglan 5 mg Take by mouth three times a day 1 tablet ORAL October 04, 2024 November 05, 2024 Discontinued VITAL SIGNS Post-Treatment Vital Signs Vital Sign Value Date / Time Blood Pressure-sitting 134/94 mmHg October 06:31 AM Blood Pressure-standing 129/56 mmHg October 202024 06:31 AM Heart Rate 68 beats per minute November 16 025 06:31 AM Respiratory Rate 18 breaths per minute October 06:31 AM Temperature 97.5 deg. F November 16, 2024 06:31 AM Weight Vital Sign Value Date / Time Estimated Dry Weight 71 kg November 12, 2024 11:59 PM Pre-Dialysis 73.10 kg November 16, 2024 06:31 AM Post-Dialysis 72.80 kg November 16, 2024 06:31 AM Other Other Value Date / Time Height 176 cm May 14 12:00 AM Body Mass Index 22.92 kg/m2 November 14, 2024 01:33 PM HEALTH CONCERNS Tuberculosis Testing TST Date Administered TST Date Read TST Result 12/01/2020 12/03/2020 No information a vailable LAB RESULTS Hematology Result Type Result Value Relevant Referen ce Range Interpretation Date Neutrophils 73.3 % 40.0 - 75.0 % [...] - 10.80 1000/mcL - June 20, 2024 Neutrophils 69.3 % 40.0 - 75.0 % - July 25 WBC (No Diff) 6.70 1000/mcL 4.80 - 10.80 1000/mcL - July 25, 2024 Platelets 200 1000/mcL 130 - 400 1000/mcL - July 25, 2024 TIBC (Calc) 240 mcg/dL 185 - 515 mcg/dL - July 25, 2024 UIBC/TIBC 131 mcg/dL 155 - 355 mcg/dL Low July 25, 2024 Transferrin Sat. (Calc) 45 % 20 - 55 % - July 25, 2024 Ferritin 1808 ng/mL 10 - 291 ng/mL High August 15 UIBC/TIBC 125 mcg/dL 155 - 355 mcg/dL [...] pg 27.0 - 31.0 pg High August 24 025 Monocytes 3.5 % 3.0 - 10.0 % - August 24 Neutrophils 35.2 % 40.0 - 75.0 % Low August 24 025 Lymphocytes 53.7 % 19.0 - 48.0 % High Kathy 06, 2 025 Hemoglobin x 3 21.9 % 36.0 - [...] % 40.0 - 75.0 % - September 19, 025 Monocytes 4.2 % 3.0 - 10.0 % - September 19 Lymphocytes 19.5 % 19.0 - 48.0 % - September 19, 025 Transferrin Sat. (Calc) 23 % 20 - [...] % 36.0 - 48.0 % Low September Hemoglobin x 3 33.3 % 36.0 - 48.0 % Low September Hemoglobin x 3 32.4 % 36.0 - 48.0 % Low September HGB 12.4 g/dL 12.0 - 16.0 g/dL - October Hemoglobin x 3 37.2 % 36.0 - 48.0 % - October 19, 2024 TIBC (Calc) 210 mcg/dL 185 - 515 mcg/dL - October 24, 2024 Transferrin Sat. (Calc) 61 % 20 - 55 % High October 24, 2024 Iron 129 mcg/dL 30 - 160 mcg/dL - October UIBC/TIBC 81 mcg/dL 155 - 355 mcg/dL Low October KARON 2.6 % 0.0 - 4.0 % - October 24 25 Basophils 1.2 % 0.0 - 1.5 % - October 24 Lymphocytes 26.7 % 19.0 - 48.0 % - October 24, 2024 Neutrophils 62.5 % 40.0 - 75.0 % - October 24, 2024 Eosinophil 3.1 % 0.0 - 7.0 % - October 24 25 Monocytes 4.0 % 3.0 - 10.0 % - October 24 025 Platelets 192 1000/mcL 130 - 400 1000/mcL - 2024 WBC (No Diff) 6.78 1000/mcL 4.80 - 10.80 1000/mcL - October 24, 2024 RDW 15.9 % 11.5 - 14.5 % High October 24, 2024 MCHC 32.2 g/dL 30.0 - 36.0 g/dL - October Hemoglobin x 3 39.6 % 36.0 - 48.0 % - October 24, 2024 HGB 13.2 g/dL 12.0 - 16.0 g/dL - October HCT 40.9 % 37.0 - 47.0 % - October 24, 2024 RBC 3.96 mill/mcL 4.20 - 5.40 mill/mcL Low October 24, 2024 MCH 33.2 pg 27.0 - 31.0 pg High October 24, 2024 HGB 12.4 g/dL 12.0 - 16.0 g/dL - October 192024 Hemoglobin x 3 37.2 % 36.0 - 48.0 % - November 02, 2024 Hemoglobin x 3 30.9 % 36.0 - 48.0 % Low November 05, 2024 HGB 10.3 g/dL 12.0 - 16.0 g/dL Low October 192024 Hemoglobin x 3 28.2 % 36.0 - 48.0 % Low November 07, 2024 HGB 9.4 g/dL 12.0 - 16.0 g/dL Low October 202024 HGB 8.0 g/dL 12.0 - 16.0 g/dL Low October 202024 Hemoglobin x 3 24 % 36.0 - 48.0 % Low November 14, 2024 Metabolic/Renal Result Type Result Value Relevant Referen ce Range Interpretation Date BUN, Post 8 mg/dL 6 - 19 [...] 6 - 19 mg/dL High September 26 BUN/Creat Ratio 5.6 10.0 - 20.0 Low October Sodium 139 mEq/L 136 - 145 mEq/L - October Potassium 3.8 mEq/L 3.5 - 5.1 mEq/L - October Chloride 97 mEq/L 96 - 108 mEq/L - October 24, 2024 Bicarbonate 27 mEq/L 22 - 29 mEq/L - October 24, 2024 BUN 31 mg/dL 6 - 19 mg/dL High October 24 Creatinine, Serum 5.51 mg/dL 0.60 - 1.30 mg/dL High October 24, 2024 URR, Calc 74 % 65 - 80 % - October 24 BUN, Post 8 mg/dL 6 - 19 mg/dL - October 24 HD Adequacy Result Type Result Value Relevant Referen ce Range Interpretation Date Krt/V 0.00 No Reference Ran ge Provided - May 30, 2024 Krt/V 0.00 No Reference Ran ge Provided - June 20, 2024 Krt/V 0.00 No Reference Ran ge Provided - July 11, 2024 Krt/V 0.00 No Reference Ran ge Provided - July 25, 2024 Krt/V 0.00 [...] ge Provided - August 24, 2024 spKt/V Gotch 1.68 No Reference Ran ge Provided - [...] Provided - September 26, 2024 eKt/V ([place]) 1.17 No Reference Range Provided - October 24, 2024 spKt/V (Daugirdas II) 1.42 No Reference Range Provided - October 24, 2024 wstdKt/V, residual 0.0 No Reference Range Provided - October 24, 2024 wstdKt/V 2.3 No Reference Ran ge Provided - October 24, 2024 Krt/V 0.00 No Reference Ran ge Provided - October 24, 2024 spKt/V Gotch 1.41 No Reference Ran ge Provided - October 24, 2024 wstdKt/V without residual 2.3 No Reference Range Provided - October 24, 2024 Bone/Mineral Result Type Result Value Relevant [...] - 2.6 mg/dL - May 23, 2024 Magnesium 1.8 mg/dL 1.6 - 2.6 mg/dL - August 24, 2024 Calcium, Total 8.3 mg/dL 8.4 - 10.2 mg/dL Low August 24, 2024 Ca x P Product 38 0 - 54 - August 24, 2 025 Phosphorus 4.6 mg/dL 2.6 - 4.5 [...] - 54 - September 19, 2 025 Calcium, Total 9.7 mg/dL 8.4 - 10.2 mg/dL - 2024 Phosphorus 5.9 mg/dL 2.6 - 4.5 mg/dL High October Ca x P Product 57 0 - 54 High October 24, 2024 Corrected Ca x P Product 56 0 - 54 High October 24, 2024 Liver/Nutrition Result Type Result Value Relevant Reference Range Interpre tation Date Total Protein 6.4 g/dL 6.0 - 8.5 g/dL - August Albumin (BCG) 3.7 g/dL 3.5 - 5.2 g/dL - August Globulin (Calc) 2.7 g/dL 2.0 - 4.0 g/dL - August 24, 2024 A/G Ratio 1.4 1.0 - 2.0 - August 24, 2024 eNPCR 0.70 No Reference Ran ge Provided - August 24, 2024 Globulin (Calc) 2.5 g/dL 2.0 - 4.0 g/dL - September 19, 2024 A/G Ratio 1.6 1.0 - 2.0 - September 19, 2024 Total Protein 6.6 g/dL 6.0 - 8.5 g/dL - September Albumin (BCG) 4.1 g/dL 3.5 - 5.2 g/dL - September eNPCR 0.91 No Reference Ran ge Provided - September 26, 2024 Total Protein 6.5 g/dL 6.0 - 8.5 g/dL - October 24, 2024 Albumin (BCG) 4.3 g/dL 3.5 - 5.2 g/dL - October 24, 2024 Globulin (Calc) 2.2 g/dL 2.0 - 4.0 g/dL - 2024 A/G Ratio 2.0 1.0 - 2.0 - October 24 eNPCR 0.53 No Reference Ran ge Provided - October 24, 2024 Immunochemistry Result Type Result Value Relevant [...] Conventional Hemodialysis Data Element Value Order Date/Time November 12, 2024 Frequency 3X Week Treatment Days MonWedFri Dialyzer 180NRe Optiflux Treatment Time (Total Minutes) 165 min Blood Flow Rate (mL/min) 450 mL/min Dialysate Flow Rate Autoflow 2.0 Estimated Dry Weight 71 kg Dialysate Concentrate 3.0 K, 2.5 Ca, [...] Effective Date Resuscitation status Full Code [place] Apr DIALYSIS TREATMENTS Conventional Hemodialysis Date Pre-Treatment Vitals Post-Treatment Nathaly ls Duration (hr) BFR (mL/min) Dialysate Dialyzer Dialysis Access Meds Admin Augus 2024 Weight 71.60 kg Weight 71.00 kg 02:52:00 450 3.0 K, 2.5 Ca, 1.0 Mg, 100 Dextrose (G3251) 180nre Optifl ux Blood Pressure-sitting 141/115 mmHg Blood Pressure-sit ting 144/73 mmHg Blood Pressure-standing 144/52 mmHg Blood Pressure-st anding 132/70 mmHg Heart Rate 116 beats per minute Heart Rate 102 beats per minute Respiratory Rate 18 breaths per minute Respiratory Rate 18 breaths per minute Temperature 97.6 deg. F Temperature 98.4 deg. F November 14, 2024 Weight 73.00 kg Weight 72.30 kg 02:46:00 450 3.0 K, 2.5 Ca, 1.0 Mg, 100 Dextrose (G3251) 180nre Optiflux Hemodialysis-AV Fistula-Transposed, Right Thigh, Femoral Artery to Saphenous Vein Access Placed on August 19, 2020 Epoetin Mata (Epogen); 3400units,Intravenous - push Vitamin D (Calcitriol) Oral; 1.0mcg,Oral Blood Pressure-sitting 172/73 mmHg Blood Pressure-sit ting 127/73 mmHg Blood Pressure-standing 162/78 mmHg Blood Pressure-st anding 136/72 mmHg Heart Rate 121 beats per minute Heart Rate 103 beats per minute Respiratory Rate 18 breaths per minute Respiratory Rate 18 breaths per minute Temperature 97.6 deg. F Temperature 97.7 deg. F November 16, 2024 Weight 73.10 kg Weight 72.80 kg 02:50:00 450 3.0 K, 2.5 Ca, 1.0 Mg, 100 Dextrose (G3251) 180nre Optiflux Hemodialysis-AV Fistula-Transposed, Right Thigh, Femoral Artery to Saphenous Vein Access Placed on August 19, 2020 Diphenhydramine; 50mg,Intravenous - push Diphenhydramine; 50mg,Intravenous - push Epoetin Mata (Epogen); 3400units,Intravenous - push Vitamin D (Calcitriol) Oral; 1.0mcg,Oral Blood Pressure-sitting 140/66 mmHg Blood Pressure-sit ting 134/94 mmHg Blood Pressure-standing 146/58 mmHg Blood Pressure-st anding 129/56 mmHg Heart Rate 113 beats per minute Heart Rate 68 beats per minute Respiratory Rate 18 breaths per minute Respiratory Rate 18 breaths per minute Temperature 97.5 deg. F Temperature 97.5 deg. F
--- OUTSIDE RECORDS SUMMARY | 2024-11-17 16:20 | XMS_ITS | Encounter Summary ---
Author Organization [facility] Address [address] [place] [address] Phone Care Team Providers Care Trust Manager Assistant Name Role Phone Herber Hussein MD Primary Care Provider [phone] Reason for Visit * Reason Comments Med Refill Encounter Details Date Type Department Care Team (Late st Contact Info) Description 10/29/2020 Refill [facility] [address] [place] [address] Mohsen Mann MD [address] [place] [address] Social History Tobacco Use Types [...] on filedocumented in this encounter Care Teams Trust Manager Assistant Relationship Specialty Start Date End Date Herber Hussein MD [address] [place] [address] PCP - General Family Medicine 07/14/18 documented as of this encounter
--- OUTSIDE RECORDS SUMMARY | 2024-11-17 16:20 | XMS_ITS | Encounter Summary ---
Author Organization [facility] Address [address] [facility] [address] [place] [address] Phone Care Team Providers Care Therapeutic Recreation Director Name Role Phone Herber Hussein MD Primary Care Provider [phone] Encounter Details Date Type Department Care Team (Late st Contact Info) Description 12/11/2018 Orders Only [facility] [address] [place] [address] Tl Lawson, [place] Chronic kidney [...] HEPATITIS C ANTIBODY Routine 04/30/2019 10:54 AM INVESTOR RELATIONS MANAGER HEPATITIS A ANTIBODY, IGM Routine 04/30/2019 10:54 AM INVESTOR RELATIONS MANAGER HEPATITIS B CORE ANTIBODY, IGM Routine 04/30/2019 10:54 AM INVESTOR RELATIONS MANAGER HEPATITIS B SURFACE ANTIGEN Routine 04/30/2019 10:54 AM INVESTOR RELATIONS MANAGER RENAL FUNCTION PANEL Routine 04/30/2019 10:54 AM INVESTOR RELATIONS MANAGER PROTEIN / CREATININE RATIO, URINE Routine 04/11/2019 1:09 PM INVESTOR RELATIONS MANAGER CBC AND DIFFERENTIAL Routine 04/11/2019 1:09 PM INVESTOR RELATIONS MANAGER RENAL FUNCTION PANEL Routine 04/11/2019 1:09 PM INVESTOR RELATIONS MANAGER PROTEIN / CREATININE RATIO, URINE Routine 12/06/2018 [...] (ABNORMAL) Renal Function Panel (04/30/2019 10:54 AM INVESTOR RELATIONS MANAGER) Glucose 268(H) 65 - 99 mg/dL [facility] [...] 5.1 g/dL [facility] 04/30/2019 10:5 4 AM INVESTOR RELATIONS MANAGER 04/30/2019 10:55 AM INVESTOR RELATIONS MANAGER Narrative Resulting Agency Comment Performing Organization Information: Site ID: [place] Name: [facility] Address: [address] [address] Director: Jadiel Winslow D.O., MPH Mohsen Mann MD LAB BLOOD ORDERABLES Fi nal Result [facility] * Hepatitis C antibody (04/30/2019 10:54 AM INVESTOR RELATIONS MANAGER) Hepatitis C Antibody NON-REACTI VE NON-REACT JUICE [facility] Signal/Cutoff 0.08 <1.00 [facility] Comment: HCV antibody was non-reactive. There is no laboratory evidence of HCV infection. In most cases, no further action is required. However, if recent HCV exposure is suspected, a test for HCV RNA (test code 71368) is suggested. For additional information please refer to http://education.netTALK/faq/HJM48h7 (This link is being provided for informational/ educational purposes only.) 04/30/2019 10:5 4 AM INVESTOR RELATIONS MANAGER 04/30/2019 10:55 AM INVESTOR RELATIONS MANAGER Narrative Resulting Agency Comment Performing Organization Information: Site ID: [place] Name: [facility] Address: [address] [place] [phone] Director: Jadiel Winslow D.O., MPH Mohsen Mann MD LAB BLOOD ORDERABLES Fi nal Result Performing Organization Address [facility] de Phone Number [facility] * Hepatitis B core antibody, IgM (04/30/2019 10:54 AM INVESTOR RELATIONS MANAGER) Hep B Core IgM NON-REACTI VE NON-REACTI VE [facility] 04/30/2019 10:5 4 AM INVESTOR RELATIONS MANAGER 04/30/2019 10:55 AM INVESTOR RELATIONS MANAGER Narrative Resulting Agency Comment Performing Organization Information: Site ID: [place] Name: [facility] Address: [address] [place] [phone] Director: Jadiel Winslow D.O., MPH Mohsen Mann MD LAB BLOOD ORDERABLES Fi nal Result Performing Organization Address [facility] Phone Number [facility] * Hepatitis B Surface Antigen (04/30/2019 10:54 AM INVESTOR RELATIONS MANAGER) Hep B Surface Antigen NON-REACTIVE NON-REACT JUICE [facility] Confirmation CANCELED [facility] Comment:Result canceled by kavon lacy. 04/30/2019 10:5 4 AM INVESTOR RELATIONS MANAGER 04/30/2019 10:55 AM INVESTOR RELATIONS MANAGER Narrative Resulting Agency Comment Performing Organization Information: Site ID: [place] Name: [facility] Address: [address] [place] [phone] Director: Jadiel Winslow D.O., MPH Mohsen Mann MD LAB BLOOD ORDERABLES Fi nal Result Performing Organization Address [facility] de Phone Number [facility] * Hepatitis A antibody, IgM (04/30/2019 10:54 AM INVESTOR RELATIONS MANAGER) Hep A IgM NON-REACTI VE NON-REACTI VE [facility] Comment: For additional information, please refer to http://education.Wool [employer] Gang.Hotlist/faq/VLL019 (This link is being provided for informational/ educational purposes only.) 04/30/2019 10:5 4 AM INVESTOR RELATIONS MANAGER 04/30/2019 10:55 AM INVESTOR RELATIONS MANAGER Narrative Resulting Agency Comment Performing Organization Information: Site ID: [place] Name: [facility] Address: [address] [place] [phone] Director: Jadiel Winslow D.O. MPH Mohsen Mann MD LAB BLOOD ORDERABLES Fi nal Result Performing Organization Address [facility] de Phone Number [facility] * (ABNORMAL) Protein, Total, Random Urine w/Creatinine (Protein/Creat Ratio) (04/11/2019 1:09 PM INVESTOR RELATIONS MANAGER) Creatinine, Ur 58 20 - 275 mg/dL [facility] Urine Protein/Creati nine Ratio 3,397(H) 21 - 161 mg/g creat [facility] Protein/Creati nine Ratio, Urine 3.397(H) 0.021 - 0.161 mg/mg creat [facility] Protein Urine Random 197(H) 5 - 24 mg/dL [facility] 04/11/2019 1:09 PM INVESTOR RELATIONS MANAGER 04/11/2019 1:10 PM INVESTOR RELATIONS MANAGER Narrative Resulting Agency Comment Performing Organization Information: Site ID: [place] Name: [facility] Address: [address] [place] [phone] Director: Jadiel Winslow D.O. MPH Yuliana Maradiaga NP LAB URINE ORDERABLES Final Resul t Performing Organization Address [facility] de Phone Number [facility] * (ABNORMAL) CBC and Differential (04/11/2019 1:09 PM INVESTOR RELATIONS MANAGER) WBC 9.3 3.8 - 10.8 Thousand/ uL [...] by t he ancillary. 04/11/2019 1:09 PM INVESTOR RELATIONS MANAGER 04/11/2019 1:10 PM INVESTOR RELATIONS MANAGER Narrative Resulting Agency Comment Performing Organization Information: Site ID: [place] Name: [employer] Address: [address] [place] [address] Director: Jadiel Winslow D.O., MPH Yuliana Maradiaga SAP PPM CONSULTANT LAB BLOOD ORDERABLES Final Resul t Performing Organization Address City/[facility]/ZIP Co de Phone Number [facility] * (ABNORMAL) Renal Function Panel (04/11/2019 1:09 PM INVESTOR RELATIONS MANAGER) Glucose 228(H) 65 - 99 mg/dL [facility] [...] - 5.1 g/dL [facility] 04/11/2019 1:09 PM INVESTOR RELATIONS MANAGER 04/11/2019 1:10 PM INVESTOR RELATIONS MANAGER Narrative Resulting Agency Comment Performing Organization Information: Site ID: [place] Name: [employer] Address: [facility] [place] [address] Director: Jadiel Winslow D.O., MPH us Yuliana Maradiaga NP LAB BLOOD ORDERABLES Final Resul t Performing Organization Address City/[facility]/ZIP Co de Phone Number [facility] STL [...] D, (D2,D3), LC/MS/MS is recommended: order code 71416 (patients >2yrs). For more information on this test, go to: http://education.netTALK/faq/GQZ344 (This link is being provided for informational/educational purposes only.) 12/06/2018 8:34 AM CDT 12/06/2018 8:35 AM CDT Narrative Resulting Agency Comment Performing Organization Information: Site ID: [place] Name: [facility] Address: [address] [place] [phone] Director: Jadiel Winslow D.O., MPH Tl Lawson [...] Performing Organization Information: Site ID: [place] Name: [employer] Address: [address] [place] [phone] Director: Jadiel Winslow D.O., MPH Tl L Renny SAP PPM CONSULTANT LAB BLOOD ORDERABLES Final Result Performing Organization Address [facility] Co de Phone Number [facility] [...] Performing Organization Information: Site ID: [place] Name: [employer] Address: [address] [facility] [place] [address] Director: Jadiel Winslow D.O., MPH Tl Lawson SAP PPM CONSULTANT LAB URINE ORDERABLES Final Result Performing Organization Address [facility] de Phone Number [facility] * [...] Performing Organization Information: Site ID: [place] Name: [employer] Address: [address] [facility] [place] [address] Director: Jadiel Winslow D.O. MPH Tl Lawson SAP PPM CONSULTANT LAB BLOOD ORDERABLES Final Result Performing Organization Address City/[facility]/ZIP Co de Phone Number CYNDIE STJuan [facility] [...] Performing Organization Information: Site ID: [place] Name: [facility] Address: [address] [address] Director: Jadiel Winslow D.O., MPH Tl Lawson SAP PPM CONSULTANT LAB BLOOD ORDERABLES Final Result Performing Organization Address City/[facility]/ZIP Co de Phone Number CYNDIE STJuan [facility] documented in this encounter Visit Diagnoses Diagnosis Chronic kidney disease stage 4 (HCC) documented in this encounter Care Teams Therapeutic Recreation Director Relationship Specialty Start Date End Date Herber Hussein MD [address] [place] [address] PCP - General Family Medicine 07/14/18 documented as of this encounter
--- OUTSIDE RECORDS SUMMARY | 2024-11-17 16:20 | XMS_ITS | Encounter Summary ---
Author Organization [facility] [employer] Address [address] [place] [address] Phone Care Team Providers Care Drug Safety Data Management Specialist Name Role Phone Herber Hussein MD Primary Care Provider [phone] Reason for Visit * Reason Comments Med Refill Encounter Details Date Type Department Care Team (Late st Contact Info) Description 08/21/2021 Refill [facility] [address] [place] [address] Mohsen Mann MD [address] [place] [address] Social History Tobacco Use Types [...] on filedocumented in this encounter Care Teams Drug Safety Data Management Specialist Relationship Specialty Start Date End Date Herber Hussein MD [address] [place] [address] PCP - General Family Medicine 07/14/18 documented as of this encounter
--- OUTSIDE RECORDS SUMMARY | 2024-11-17 16:20 | XMS_ITS | Encounter Summary ---
Author Organization [facility] [employer] Address [address] [place] [address] Phone Care Team Providers Care Real Estate Sales Supervisor Name Role Phone Herber Hussein MD Primary Care Provider Reason for Visit * Reason Comments Med Refill Encounter Details Date Type Department Care Team (Late st Contact Info) Description 05/30/2020 Refill [place] [facility] [employer] [address] [place] [address] Mohsen Mann MD [address] [place] [address] Social History Tobacco Use Types [...] in this encounter Care Teams Real Estate Sales Supervisor Relationship Specialty Start Date End Date Herber Hussein MD [address] [place] [address] PCP - General Family Medicine 07/14/18 documented as of this encounter
--- OUTSIDE RECORDS SUMMARY | 2024-11-17 16:20 | XMS_ITS | Encounter Summary ---
Author Organization [facility] Address [address] [place] [address] Phone Care Team Providers Care Nonprofit Fundraiser Name Role Phone Herber Hussein MD Primary Care Provider [phone] Reason for Visit * Reason Comments Med Refill Encounter Details Date Type Department Care Team (Late st Contact Info) Description 05/06/2020 Refill [facility] [facility] [address] [place] [address] Mohsen Mann MD [address] [place] [address] Social History Tobacco Use Types [...] on filedocumented in this encounter Care Teams Nonprofit Fundraiser Relationship Specialty Start Date End Date Herber Hussein MD [address] [place] [address] PCP - General Family Medicine 07/14/18 documented as of this encounter
--- OUTSIDE RECORDS SUMMARY | 2024-11-17 16:20 | XMS_ITS | Encounter Summary ---
Author Organization [facility] Address [address] [place] [address] Phone Care Team Providers Care Metal Pattern Maker Name Role Phone Herber Hussein MD Primary Care Provider [phone] Encounter Details Date Type Department Care Team (Late st Contact Info) Description 08/24/2018 Orders Only [facility] [address] [place] [address] Mohsen Mann MD [address] [facility] [address] [facility] [address] [place] [address] Chronic kidney disease stage 4 [...] (HCC) documented in this encounter Care Teams Metal Pattern Maker Relationship Specialty Start Date End Date Herber Hussein MD [address] [place] [address] PCP - General Family Medicine 07/14/18 documented as of this encounter
--- OUTSIDE RECORDS SUMMARY | 2024-11-17 16:20 | XMS_ITS | Encounter Summary ---
Author Organization [facility] [employer] Address [address] [facility] [address] [place] [address] Phone Care Team Providers Care Per Diem Name Role Phone Herber Hussein MD Primary Care Provider [phone] Encounter Details Date Type Department Care Team (Late st Contact Info) Description 08/25/2018 Orders Only [place] [facility] [address] [place] [address] Tl Lawson NP Chronic kidney [...] (HCC) documented in this encounter Care Teams Per Diem Relationship Specialty Start Date End Date Herber Hussein MD [address] [place] [address] PCP - General Family Medicine 07/14/18 documented as of this encounter
--- OUTSIDE RECORDS SUMMARY | 2024-11-17 16:20 | XMS_ITS | Encounter Summary ---
Author Organization [facility] [employer] [facility] Address [address] [place] [address] Phone Care Team Providers Care City Mail Carrier Name Role Phone Herber Hussein MD Primary Care Provider [phone] Reason for Visit * Reason Comments Med Refill Encounter Details Date Type Department Care Team (Late st Contact Info) Description 11/20/2020 Refill [place] [facility] [address] [place] [address] Mohsen Mann MD [address] [place] [address] Social History Tobacco Use Types [...] on filedocumented in this encounter Care Teams City Mail Carrier Relationship Specialty Start Date End Date Herber Hussein MD [address] [place] [address] PCP - General Family Medicine 07/14/18 documented as of this encounter
--- OUTSIDE RECORDS SUMMARY | 2024-11-17 16:20 | XMS_ITS | Encounter Summary ---
Author Organization [facility] [employer] Address [address] [place] [address] Phone Care Team Providers Care Machine Operator Farmworker Name Role Phone Herber Hussein MD Primary Care Provider [phone] Reason for Visit * Reason Comments Med Refill Encounter Details Date Type Department Care Team (Late st Contact Info) Description 06/23/2024 Refill [facility] [employer] [employer] [address] [place] [address] Bee Chavarria MD [address] [place] [address] Social History Tobacco Use Types [...] on filedocumented in this encounter Care Teams Machine Operator Farmworker Relationship Specialty Start Date End Date Herber Hussein MD [address] [place] [address] PCP - General Family Medicine 07/14/18 documented as of this encounter
--- OUTSIDE RECORDS SUMMARY | 2024-11-17 16:20 | XMS_ITS | Clinical Summary ---
Author Organization [facility] Facility Address [address] [place] [address] Care Team Providers Care Inner Diameter Grinder Tool Name Role Phone Herber Hussein MD Primary Care Provider [phone] Allergies Active Allergy Reactions Criticality Noted Date Comments Adhesive Tape 03/31/2018 Other reaction(s): Other (See Comments) blister Cephalexin Rash Medium 05/24/2018 Cephalosporins Rash Low 04/01/2017 Tolerated zosyn, unasyn Latex Rash Medium 05/24/2018 Medications citalopram (CeleXA) 40 MG tablet Take 10 mg by mouth 1 (one) time each day Active amLODIPine (NORVASC) 10 MG tablet Take 1 tablet (10 mg total) by mouth 1 (one) time each day 30 tablet 11 12/13/19 19 Active sodium bicarbonate 650 MG tablet Take 1 tablet (650 mg total) by mouth 4 (four) times a day 120 tablet 2 03/15/20 19 Active Additional Information Patient taking differently:650 mg OralDaily PRN, Reported on 11/13/2020 ondansetron (ZOFRAN) 4 MG tablet Take 1 tablet (4 mg total) by mouth every 6 (six) hours if needed for nausea or vomiting 20 tablet 04/30/19 20 Active apixaban (Eliquis) 2.5 MG tablet Take 2.5 mg by mouth 2 (two) times a day Active acetaminophen (TYLENOL) 500 MG tablet Take 500 mg by mouth every 6 (six) hours if needed for mild pain Active ALPRAZolam (NIRAVAM) 0.25 MG dispersible tablet Take 0.25 mg by mouth at night if needed for anxiety Active carvedilol (COREG) 25 MG tablet Take 25 mg by mouth in the morning and 25 mg in the evening. Take with meals. Active diphenhydrAMINE (BENADRYL) 25 MG capsule Take 25 mg by mouth every 6 (six) hours if needed for itching Active hydrALAZINE 25 MG tablet Take 25 mg by mouth in the morning and 25 mg in the evening and 25 mg before bedtime. Active Melatonin 5 MG capsule Take by mouth Active pantoprazole (PROTONIX) 40 MG EC tablet Take 40 mg by mouth 1 (one) time each day before breakfast Do not crush, chew, or split. Active Multiple Vitamins-Minera ls (RenaPlex) tablet Take by mouth Active rOPINIRole (REQUIP) 0.25 MG tablet Take 0.25 mg by mouth in the morning and 0.25 mg in the evening and 0.25 mg before bedtime. Active sevelamer (RENAGEL) 800 MG tablet Take 800 mg by mouth in the morning and 800 mg at noon and 800 mg in the evening. Take with meals. Swallow tablet whole; do not crush, break, or chew. Active metoclopramide (REGLAN) 5 MG tablet Take 5 mg by mouth in the morning and 5 mg at noon and 5 mg in the evening. Active Vit-Fe Fumarate-FA ( VITAMIN PO) Take 1 tablet by mouth 1 (one) time each day 025 Discontinued ergocalciferol (DRISDOL) 99367 units capsule Take 1 capsule by mouth 1 (one) time per week 02/23/20 18 025 Discontinued SITagliptin (JANUVIA) 100 MG tablet Take 100 mg by mouth 1 (one) time each day 025 Discontinued Semaglutide,0.2 5 or 0.5MG/DOS, (OZEMPIC, 0.25 OR 0.5 MG/DOSE,) 2 MG/1.5ML solution pen-injector Inject 0.25 mg under the skin per week 025 Discontinued Active Problems Problem Noted Date Diagnosed Date [...] (01/11/2022): Added automatically from request for surgery [id number] Anemia in chronic kidney disease 10/10/2018 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 [address] [place] [address] Bee Chavarria MD 11/12/2024 [facility] [address] [place] [address] Ana Viramontes NP End stage renal disease; Dependence on renal dialysis 11/07/2024 Orders Only [facility], [facility] [address] [place] [address] Bee Chavarria MD 11/05/2024 Orders Only [facility] [address] [place] [address] Bee Chavarria MD 11/05/2024 TCM in Dialysis Clinic [facility], [facility] [address] [place] [address] Daisy Lindsay NP 11/02/2024 Telephone [facility], [facility] [address] [place] [address] Bee Chavarria MD 10/26/2024 Treatment [facility], [facility] [address] [place] [id number] Daisy Lindsay NP Malignant neoplasm of colon; Type 2 diabetes mellitus with diabetic chronic kidney disease; Bipolar disorder; Chronic obstructive pulmonary disease; Osteomyelitis; Secondary hyperparathyroidism of renal origin; End stage renal disease; Dependence on renal dialysis 10/24/2024 [facility], [facility] [address] [place] [address] Bee Chavarria MD 10/19/2024 Orders [facility], [facility] [address] [place] [address] Bee Chavarria MD 10/10/2024 Orders [facility], [facility] [address] [place] [address] Bee Chavarria MD 10/10/2024 Treatment [facility], [facility] [address] [place] [address] Bee Chavarria MD End stage renal disease; Dependence on renal dialysis 10/05/2024 Orders Only [facility], [facility] [address] [place] [address] Bee Chavarria MD 10/05/2024 Documentation [facility], [facility] [address] [place] [address] Daisy Lindsay, [place] 10/04/2024 Telephone [facility], [facility] [address] [place] [address] Yuliana Maradiaga NP 09/26/2024 Orders [facility], [facility] [address] [place] [address] Bee Chavarria MD 09/26/2024 [facility], [facility] [address] [place] [address] Daisy Lindsay, [place] End stage renal disease; Dependence on renal dialysis 09/19/2024 Orders Only [facility], [facility] [address] [place] [address] Bee Chavarria MD 09/19/[address] [place] [address], [facility] [address] [place] [address] Daisy Lindsay NP End stage renal disease; Dependence on renal dialysis 09/12/2024 [facility], [facility] [address] [place] [address] Bee Chavarria MD 09/10/[address] [place] [address], [facility] [address] [place] [address] Ana Viramontes NP End stage renal disease; Dependence on renal dialysis 09/05/2024 [facility] [address] [place] [address] Bee Chavarria MD 09/05/[address] [place] [address], [facility] [address] [place] [address] Bee Chavarria MD End stage renal disease; Dependence on renal dialysis 08/29/2024 Orders [facility], [facility] [address] [place] [address] Bee Chavarria MD 08/27/[address] [place], [place] [address]rology [facility], [facility] [address] [place] [address] Ana Viramontes NP End stage renal disease; Dependence on renal dialysis 08/24/2024 Orders Only [facility], [facility] [address] [place] [address] Bee Chavarria MD 08/20/[address] [place], [place] [address] [facility], [facility] [address] [place] [address] Ana Viramontes NP End stage renal disease; Dependence on renal dialysis 08/17/2024 Orders Only [facility] [address] [place] [address] Bee Chavarria MD from Last 3 Months [...] Cancer Screening: Sigmoidoscopy 06/11/2023 Diabetes: Hemoglobin A1C 05/22/20242 024, 11/23/2023, 08/24/2023, Additional history exists Pneumococcal Vaccine: 50+ Ye ars (3 of 3 - PCV20 or PCV21) 07/23/2024 07/24/2019, 05/21/2019 Influenza Vaccine (#1) 2024 4, 12/29/2022, 12/16/2021, Additional history exists Pneumococcal Vaccine: Peds ( 0 to 5 Years) and At-Risk Patients (6 to 49 Years) Discontinued 07/24/2019, 05/21/2019 Procedures Procedure Name Priority Date/Time Associated Diagnosis Comments HEMATOLOGY Routine 11/14/2024 HEMATOLOGY Routine 11/07/2024 HEMATOLOGY Routine 11/05/2024 HEMATOLOGY Routine 11/02/2024 [facility] RESULTS Routine 10/24/2024 HD KINETICS Routine 10/24/2024 POST CHEMISTRY Routine 10/24/2024 CHEMISTRY Routine 10/24/2024 HEMATOLOGY Routine 10/24/2024 HEMATOLOGY Routine 10/19/2024 HEMATOLOGY Routine 10/10/2024 HEMATOLOGY [...] 08/24/2024 HEMATOLOGY Routine 08/24/2024 HEMATOLOGY Routine 08/17/2024 SPECIAL CHEMISTRY Routine 02/22/2024 from Last 3 Months or Most Recently Relevant to Health Maintenance Results * (ABNORMAL) HEMATOLOGY (11/14/2024) Only the most recent of15 resultswithin the time period is included. Hemoglobin 8.0(L) 12.0 - 16.0 g/dL [facility] Hemoglobin x 3 24(L) 36.0 - 48.0 % [facility] 11/14/2024 11/15/2024 10: 53 AM CDT Narrative [facility] - 11/15/2024 Unless otherwise specified, test(s) performed at: [facility] ?, [address] [place] [address] PLASTIC [employer]S FABRICATOR: Michael Knox M.D. For any questions, please call customer service at FREQUENCY:OTHER Resulting Agency Comment Specimen source: Blood us Bee Chavarria MD LAB BLOOD ORDERABLES Final Re sult [facility] See order comments or contact performing lab Unknown, [place] * HD KINETICS (10/24/2024) Only the most recent of3 resultswithin the time period is included. % Urea Reduction 74 65 - 80 % [facility] 10/24/2024 10/25/2024 4:0 7 PM CDT Narrative Resulting Agency Comment Specimen source: Plasma us Bee Chavarria MD LAB BLOOD ORDERABLES Final Re sult Performing Organization Address [facility] de Phone Number [facility] See order comments or contact performing lab Unknown, [place] * POST CHEMISTRY (10/24/2024) Only the most recent of3 resultswithin the time period is included. Pathologist [facility] BUN Post Dialysis 8 6 - 19 mg/dL [facility] 10/24/2024 10/25/2024 4:0 7 PM CDT Narrative [facility] - 10/26/2024 Unless otherwise specified, test(s) performed at: [facility] ?, [address] [place] [address] PLASTIC [employer]S FABRICATOR: Michael Knox M.D. For any questions, please call customer service at FREQUENCY:MONTHLY Resulting Agency Comment Specimen source: Plasma us Bee Chavarria MD LAB BLOOD ORDERABLES Final Re [facility] Performing Organization Address [facility] de Phone Number [facility] See order comments or contact performing lab Unknown, [place] * (ABNORMAL) [facility] Chemistry (10/24/2024) Only the most recent of5 resultswithin the time period is included. BUN 31(H) 6 - 19 mg/dL [facility] Creatinine 5.51(H) 0.60 - 1.30 mg/dL [facility] BUN/Creatinine Ratio 5.6(L) 10.0 - 20.0 [facility] Sodium 139 136 - 145 mEq/L [facility] Potassium 3.8 3.5 - 5.1 mEq/L [facility] Chloride 97 96 - 108 mEq/L [facility] Bicarbonate (CO2) 27 22 - 29 mEq/L [facility] Calcium 9.7 8.4 - 10.2 mg/dL [facility] Corrected Calcium 9.5 8.4 - 10.2 mg/dL [facility] Comment: Corrected Calcium is not equivalent to measured Ionized Calcium. Phosphorus 5.9(H) 2.6 - 4.5 mg/dL [facility] Calcium Phosphorus Product 57(H) 0 - 54 [facility] Calcium Phosporus Product, Cor 56(H) 0 - 54 [facility] Total Protein 6.5 6.0 - 8.5 g/dL [facility] Albumin 4.3 3.5 - 5.2 g/dL [facility] Globulin, Total 2.2 2.0 - 4.0 g/dL [facility] A/G Ratio 2.0 1.0 - 2.0 [facility] Iron 129 30 - 160 mcg/dL [facility] UIBC 81(L) 155 - 355 mcg/dL [facility] TIBC 210 185 - 515 mcg/dL [facility] Iron Saturation (TSat) 61(H) 20 - 55 % [facility] 10/24/2024 10/25/2024 4:3 1 PM CDT Narrative [facility] - 10/25/2024 Unless otherwise specified, test(s) performed at: [facility] ?, [address] [place] [address] PLASTIC PARTS FABRICATOR: Michael Knox M.D. For any questions, please call customer service at FREQUENCY:MONTHLY Resulting Agency Comment Specimen source: Serum us Bee Chavarria MD LAB BLOOD ORDERABLES Final Re sult [facility] See order comments or contact performing lab Unknown, [place] * [facility] Results (10/24/2024) Only the most recent of3 resultswithin the time period is included. eKt/V (Tattersall) 1.17 [facility] spKt/V Gotch 1.41 [facility] [place] eKt/V [facility] spKt/V (Daugirdas II) 1.42 [facility] eKdrt/V 1.13 [facility] [place] eNPCR 0.53 [facility] nPCR_HD 0.58 [facility] WSTDKT/V 2.3 [facility] PCR 32.52 [facility] 10/24/2024 10/24/2024 us [facility] Ordering Provider LAB BLOOD ORDERABLES Final Result [facility] Center Contact Performing lab Unknown, [place] * (ABNORMAL) SPECIAL CHEMISTRY (02/22/2024) Hemoglobin A1C 6.1(H) 4.8 - 5.9 % [facility] 02/22/2024 02/23/2024 11: 16 AM QA TEST ANALYST Narrative [facility] - 02/23/2024 Unless otherwise specified, test(s) performed at: [facility] [address] PLASTIC [employer]S FABRICATOR: Michael Knox M.D. For any questions, please call customer service at FREQUENCY:MONTHLY Resulting Agency Comment Specimen source: Blood Bee Chavarria MD LAB BLOOD BANK TEST ORDERABLE S Final Result Performing Organization Address City/[facility] de Phone Number [facility] See order comments or contact performing lab Unknown, [place] from Last 3 Months or Most Recently Relevant to Health Maintenance Insurance Medicaid [place] ([id number]) Medicare Care Teams Inner Diameter Grinder Tool Relationship Specialty Start Date End Date Herber Hussein MD [address] [place] [address] PCP - General Family Medicine 07/14/18
--- OUTSIDE RECORDS SUMMARY | 2024-11-17 16:20 | XMS_ITS | Encounter Summary ---
Author Organization [facility] [employer] [employer] Address [address] [facility] [address] [place] [address] Phone Care Team Providers Care District Agent Name Role Phone Herber Hussein MD Primary Care Provider [phone] Encounter Details Date Type Department Care Team (Late st Contact Info) Description 09/29/2018 Orders Only [place] [facility] [employer] [address] [place] [address] Tl Lawson NP Chronic kidney [...] (HCC) documented in this encounter Care Teams District Agent Relationship Specialty Start Date End Date Herber Hussein MD [address] [place] [address] PCP - General Family Medicine 07/14/18 documented as of this encounter
--- OUTSIDE RECORDS SUMMARY | 2024-11-17 16:20 | XMS_ITS | Encounter Summary ---
Author Organization [facility] [employer] Address [address] [place] [address] Phone Care Team Providers Care Metal Handler Name Role Phone Herber Hussein MD Primary Care Provider [phone] Reason for Visit * Reason Comments Med Refill Encounter Details Date Type Department Care Team (Late st Contact Info) Description 11/23/2021 Refill [facility] [employer] [address] [place] [address] Mohsen Mann MD [address] [place] [address] Social History Tobacco Use Types [...] on filedocumented in this encounter Care Teams Metal Handler Relationship Specialty Start Date End Date Herber Hussein MD [address] [place] [address] PCP - General Family Medicine 07/14/18 documented as of this encounter
--- NOTE | 2024-11-17 17:05 | ECG_ITS ---
[employer] Test Date: 2024-11-17 Pat Name: Bharati Anthony Department: Room: Gender: Female Carbon Paper Interleafer: : 1975 Requested By: Nohemi Rivero Order Number: [id number] Dung MD: Janusz Schaefer M.D. Measurements Intervals [place] Rate: 109 P: 73 KS: 136 QRS: 37 QRSD: 100 T: 81 QT: 359 QTc: 485 Interpretive Statements SINUS TACHYCARDIA POSSIBLE LEFT ATRIAL ENLARGEMENT [-0.1mV P-WAVE IN V1/V2] NONSPECIFIC ST & T-WAVE ABNORMALITY ABNORMAL ECG Compared to ECG 10/15/2024 13:33:59 NO SIGNIFICANT CHANGE Electronically Signed On 11-18-2024 22:16:20 CDT by Janusz Schaefer M.D. [email or web address]
--- NOTE | 2024-11-17 17:14 | W.ED.SOB ---
Documented by User: Nohemi Rivero MD 11/17/24 17:15 HPI - SOB/Dyspnea General: Chief Complaint: Shortness of Breath/Dyspnea Stated Complaint: NVD / SOB Time Seen by Provider: 11/17/24 17:11 Source: patient Mode of arrival: ambulatory Limitations: no limitations History of Present Illness: HPI Narrative: 49-year-old female who states that she has been having shortness of breath throughout the day. States she does get anxious times felt anxious just felt like she could not breathe. She denies any actual pain denies any fever she denies any cough she denies any worse improving factors. Related Data Home Medications ?Medication ?Instructions ?Recorded ?Confirmed acetaminophen 325 mg capsule 650 mg PO QID PRN Pain 06/19/19 10/15/24 pantoprazole 40 mg tablet,delayed 40 mg PO BID 06/19/19 10/15/24 release sodium bicarbonate 650 mg tablet 650 mg PO DAILY PRN Dialysis 09/18/19 10/15/24 diphenhydramine HCl 25 mg capsule 25 mg PO TID PRN Itching 04/01/20 10/15/24 (Benadryl) melatonin 10 mg capsule 10 mg PO BEDTIME 01/21/23 10/15/24 ropinirole 0.25 mg tablet 0.25 mg PO BEDTIME 01/21/23 10/15/24 vit B,C-folic ac 800 mcg-zinc 12.5 1 tab PO DAILY 01/21/23 10/15/24 mg-selen-D3 2,000 unit-vit E tablet (RenaPlex-D) amlodipine 10 mg tablet 10 mg PO DAILY 03/22/24 10/15/24 citalopram 20 mg tablet 20 mg PO DAILY 03/22/24 10/15/24 semaglutide 1 mg/dose (4 mg/3 mL) 1 mg SUBCUT Q7D 10/15/24 10/15/24 subcutaneous pen injector (Ozempic) Held on 10/17/24. Instructions: see pcp Previous Rx's ?Medication ?Instructions ?Recorded albuterol sulfate 90 mcg/actuation 2 inh inhalation QID shortness of 09/04/24 aerosol inhaler breath #8.5 grams ondansetron 4 mg disintegrating 4 mg PO Q6H PRN nausea and 09/26/24 tablet vomiting #14 tabs alprazolam 0.25 mg tablet (Xanax) 0.25 mg PO BID PRN Anxiety and 10/17/24 nausea #10 tabs folic acid 1 mg tablet 1,000 mcg PO DAILY #30 tabs 10/17/24 thiamine mononitrate (vit B1) 100 100 mg PO DAILY #30 tabs 10/17/24 mg tablet (Vitamin B-1 (mononitrate)) ondansetron 4 mg disintegrating 4 mg PO Q6H PRN nausea and 10/22/24 tablet vomiting #14 tabs azithromycin 250 mg tablet See Rx Instructions PO .COMPLEX #6 11/17/24 tabs Allergies Allergy/AdvReac Type Severity Reaction Status Date / Time sulfamethoxazole (From Allergy Severe ALGY-Rash Verified 09/18/24 10:58 Sulfamethoxazole-Trimethoprim) trimethoprim (From Allergy Severe ALGY-Rash Verified 09/18/24 10:58 Sulfamethoxazole-Trimethoprim) adhesive tape Allergy Unknown blisters Verified 09/18/24 10:58 Cephalosporins Allergy Unknown unknown Verified 09/18/24 10:58 doxycycline Allergy ADR-Vomitin Verified 09/18/24 10:58 g latex Allergy blisters Verified 09/18/24 10:58 Sulfa (Sulfonamide Allergy Unknown Verified 10/16/24 07:58 Antibiotics) PFSH ED PFSH: Medical History (Updated 11/17/24 @ 20:27 by Quoc Bernstein DO) Tachycardia Diabetes Deep vein thrombosis (DVT) during Chronic anticoagulation Squamous cell carcinoma of anal canal Diabetes mellitus End-stage renal disease Surgical History Status post surgery (05/19/20) Removal of peritoneal dialysis catheter Port-A-Cath in place S/P hemodialysis catheter insertion (01/09/20) Removed 11/18/2020 Peritoneal dialysis status H/O colonoscopy H/O hand surgery History of hip surgery History of hysterectomy Family History Other Cancer Diabetes Denies family history of Anesthesia complication Bleeding disorder Social History Smoking and tobacco/nicotine status: current every day tobacco/nicotine user Alcohol intake: never Substance/Drug Use: never Household members: family Marital status: Single Current occupational status: disabled Physical Exam Const: COMMON NORMALS: patient oriented x3 HENMT: COMMON NORMALS: normocephalic and atraumatic HEAD & SCALP: normocephalic and atraumatic Eye: COMMON NORMALS: conjunctivae normal CONJUNCTIVA: Yes conjunctivae normal Neck/C-Spine: COMMON NORMALS: full ROM and supple Chest: COMMONS NORMALS: normal inspection of the chest and normal palpation of entire chest wall Resp: COMMON NORMALS: normal respiratory effort, No retractions, No use of accessory muscles and clear to auscultation bilaterally AUSCULTATION: clear to auscultation bilaterally Cardio: COMMON NORMALS: regular rhythm and No murmurs present (Cardio) RATE: tachycardic RHYTHM: regular rhythm GI: COMMON NORMALS: Normal to inspection, nondistended, normoactive bowel sounds present, Soft to palpation, non-tender and no masses PALPATION: Yes Soft to palpation Extremity: COMMON NORMALS: normal to inspection and full ROM Neuro: COMMON NORMALS: patient oriented x3, moves all extremities and no focal motor deficits Psych: COMMON NORMALS: mental status grossly normal, Normal thought process present and cooperative THOUGHT PROCESS: Normal thought process present Skin: COMMON NORMALS: no rashes or lesions noted and no wounds GENERAL SKIN EXAM: no rashes or lesions noted Course Vital Signs: Vital signs: Vital Signs Temperature 97.5 F L 11/17/24 16:14 Pulse Rate 99 11/17/24 21:08 Respiratory Rate 18 11/17/24 21:08 Blood Pressure 147/68 11/17/24 21:08 Pulse Oximetry 93 11/17/24 21:08 Oxygen Delivery Me thod Room Air 11/17/24 20:55 MDM - SOB/Dyspnea Medical Records I reviewed the patient's medical records. Lab Data I reviewed the patient's lab results. 11/17/24 17:42 11/17/24 17:42 Labs/Radiology: Radiology Impressions Chest X-Ray 11/17/24 16:17 IMPRESSION: Interstitial prominence and reticulonodular opacities about the periphery could reflect atypical infectious/inflammatory process or trace interstitial edema. Chest CTA 11/17/24 18:28 IMPRESSION: 1. No definitive evidence of pulmonary embolism or right heart strain. 2. Aortic and coronary atherosclerosis. 3. Patchy airspace disease in the right middle lobe, with mild ground-glass opacities in the bilateral upper lobes, nonspecific although concerning for multifocal pneumonia. Small bilateral pleural effusions. Laboratory Results WBC 5.67 10^3/uL (3.29-11.43) 11/17/24 17:42 RBC 2.42 10^6/uL (3.85-5.65) L 11/17/24 17:42 Hgb 8.10 g/dL (11.27-16.99) L 11/17/24 17:42 Hct 27.5 % (36-47) L 11/17/24 17:42 MCV 113.6 fl (85-98) H 11/17/24 17:42 MCH 33.5 pg (27-33) H 11/17/24 17:42 MCHC 29.5 g/dL (30-55) L 11/17/24 17:42 RDW 14.5 % (12.1-15.1) 11/17/24 17:42 Plt Count 136 10^3/cmm (157-399) L 11/17/24 17:42 MPV 9.2 fL (7.4-10.4) 11/17/24 17:42 Neut % (Auto) 75.3 % 11/17/24 17:42 Lymph % (Auto) 16.0 % 11/17/24 17:42 [place] % (Auto) 5.1 % 11/17/24 17:42 Eos % (Auto) 2.6 % 11/17/24 17:42 Baso % (Auto) 0.5 % 11/17/24 17:42 Neut # (Auto) 4.26 10^3/uL (1.8-7.7) 11/17/24 17:42 Lymph # (Auto) 0.9 10^3/uL (0.8-4.8) 11/17/24 17:42 [place] # (Auto) 0.3 10^3/uL (0.2-0.9) 11/17/24 17:42 Eos # (Auto) 0.2 10^3/uL (0.0-0.8) 11/17/24 17:42 Baso # (Auto) 0.0 10^3/uL (0.0-0.1) 11/17/24 17:42 Nucleated RBC % (auto) 0 % 11/17/24 17:42 Nucleated RBCs # 0.0 /100WBC 11/17/24 17:42 D-Dimer 2.98 ug/mLFEU (0-0.59) H 11/17/24 17:42 Sodium 141 mmol/L (136-145) 11/17/24 17:42 Potassium 4.3 mmol/L (3.5-5.1) 11/17/24 17:42 Chloride 100 mmol/L (98-107) 11/17/24 17:42 Carbon Dioxide 29 mmol/L (22-29) 11/17/24 17:42 Anion Gap 16.3 (5-19) 11/17/24 17:42 BUN 35 mg/dL (6-20) H 11/17/24 17:42 Creatinine 4.5 mg/dL (0.5-0.9) H 11/17/24 17:42 GFR Calculation 10.3 mL/min (90-130) L 11/17/24 17:42 Glucose 149 mg/dL (65-115) H 11/17/24 17:42 Calculated Osmolality 303 mOsm/kg (285-295) H 11/17/24 17:42 Calcium 9.5 mg/dL (8.5-10.5) 11/17/24 17:42 Total Bilirubin 0.5 mg/dL (0.15-1.2) 11/17/24 17:42 AST 24 U/L (0-32) 11/17/24 17:42 ALT 31 U/L (0-33) 11/17/24 17:42 Alkaline Phosphatase 94 U/L (35-105) 11/17/24 17:42 Troponin T Baseline 71 ng/L (0-10) H 11/17/24 17:42 Troponin T 120 Minute 68.32 ng/L (0-10) H 11/17/24 19:33 Delta Troponin T -2.68 ABS# (0-10) L 11/17/24 19:33 NT-Pro-B Natriuret Pep 51742 pg/mL (0-125) H 11/17/24 17:42 Total Protein 6.1 g/dL (6.6-8.7) L 11/17/24 17:42 Albumin 3.9 g/dL (3.5-5.2) 11/17/24 17:42 Globulin 2.2 g/dL (1.3-4.6) 11/17/24 17:42 Lipase 111 U/L (13-60) H 11/17/24 17:42 Influenza A (PCR) Negative (Negative) 11/17/24 16:26 Influenza Type B (PCR) Negative (Negative) 11/17/24 16:26 RSV (PCR) Negative (Negative) 11/17/24 16:26 SARS-CoV-2 (PCR) Negative (Negative) 11/17/24 16:26 All radiology interpretation(s) finalized by discharge EKG Data EKG 1: I personally reviewed and interpreted this EKG as follows: EKG Interpretation Date: 11/17/24 EKG interpretation time: 16:20 Interpretation: sinus tach hr [address] elevation qrs 100 qtc 423 Discharge Plan Discharge Patient Disposition: Home Clinical Impression: Tachycardia, ESRD (end stage renal disease) on dialysis, Pneumonitis, Pulmonary edema Condition: Stable Prescriptions: New azithromycin 250 mg tablet See Rx Instructions .ROUTE .COMPLEX Qty: 6 0RF Rx Instructions: For 250 mg dose pack: take 500 mg today (day 1), then 250 mg for 4 days (days 2-5) No Action diphenhydramine HCl [Benadryl] 25 mg capsule 25 mg PO TID PRN (Reason: Itching) acetaminophen 325 mg capsule 650 mg PO QID PRN (Reason: Pain) pantoprazole 40 mg tablet,delayed release (DR/EC) 40 mg PO BID sodium bicarbonate 650 mg tablet 650 mg PO DAILY PRN (Reason: Dialysis) albuterol sulfate 90 mcg/actuation HFA aerosol inhaler 2 inh inhalation QID Qty: 8.5 4RF ropinirole 0.25 mg Tablet 0.25 mg PO BEDTIME melatonin 10 mg Capsule 10 mg PO BEDTIME RenaPlex-D 800 mcg-12.5 mg -2,000 unit Tablet 1 tab PO DAILY amlodipine 10 mg tablet 10 mg PO DAILY citalopram 20 mg tablet 20 mg PO DAILY ondansetron 4 mg tablet,disintegrating 4 mg PO Q6H PRN (Reason: nausea and vomiting) Qty: 14 0RF Ozempic 1 mg/dose (4 mg/3 mL) pen injector 1 mg SUBCUT Q7D thiamine mononitrate (vit B1) [Vitamin B-1 (mononitrate)] 100 mg Tablet 100 mg PO DAILY Qty: 30 0RF alprazolam [Xanax] 0.25 mg tablet 0.25 mg PO BID PRN (Reason: Anxiety and nausea) Qty: 10 0RF folic acid 1 mg tablet 1,000 mcg PO DAILY Qty: 30 0RF ondansetron 4 mg tablet,disintegrating 4 mg PO Q6H PRN (Reason: nausea and vomiting) Qty: 14 0RF Discharge Orders: Discharge ED (Routine); Ordered 11/17/24 Ordered By: Quoc Bernstein Referrals: Herber Hussein MD [Primary Care Provider, [facility]] - 1-3 days Patient Instructions: Pulmonary Edema (ED), Pneumonitis (ED), Opioid Safety, Pain Management, Patient Portal & Navneet Instructions Activity Restrictions/Additional Instructions: Return for worsening shortness of breath, chest discomfort, fever, any other concerning symptoms despite treatment. Let them know you were seen here had dialysis on Tuesday or Tuesday. They may wish to alter your treatment. Print Language: Sudanese Coding Level of Care Code ED Cotton Roll Packer for Chg Fwd Documented by User: Quoc Bernstein, 11/17/24 23:52 HPI - SOB/Dyspnea General: Chief Complaint: Shortness of Breath/Dyspnea Stated Complaint: NVD / SOB Time Seen by Provider: 11/17/24 17:11 Related Data Home Medications ?Medication ?Instructions ?Recorded ?Confirmed acetaminophen 325 mg capsule 650 mg PO QID PRN Pain 06/19/19 10/15/24 pantoprazole 40 mg tablet,delayed 40 mg PO BID 06/19/19 10/15/24 release sodium bicarbonate 650 mg tablet 650 mg PO DAILY PRN Dialysis 09/18/19 10/15/24 diphenhydramine HCl 25 mg capsule 25 mg PO TID PRN Itching 04/01/20 10/15/24 (Benadryl) melatonin 10 mg capsule 10 mg PO BEDTIME 01/21/23 10/15/24 ropinirole 0.25 mg tablet 0.25 mg PO BEDTIME 01/21/23 10/15/24 vit B,C-folic ac 800 mcg-zinc 12.5 1 tab PO DAILY 01/21/23 10/15/24 mg-selen-D3 2,000 unit-vit E tablet (RenaPlex-D) amlodipine 10 mg tablet 10 mg PO DAILY 03/22/24 10/15/24 citalopram 20 mg tablet 20 mg PO DAILY 03/22/24 10/15/24 semaglutide 1 mg/dose (4 mg/3 mL) 1 mg SUBCUT Q7D 10/15/24 10/15/24 subcutaneous pen injector (Ozempic) Held on 10/17/24. Instructions: see pcp Previous Rx's ?Medication ?Instructions ?Recorded albuterol sulfate 90 mcg/actuation 2 inh inhalation QID shortness of 09/04/24 aerosol inhaler breath #8.5 grams ondansetron 4 mg disintegrating 4 mg PO Q6H PRN nausea and 09/26/24 tablet vomiting #14 tabs alprazolam 0.25 mg tablet (Xanax) 0.25 mg PO BID PRN Anxiety and 10/17/24 nausea #10 tabs folic acid 1 mg tablet 1,000 mcg PO DAILY #30 tabs 10/17/24 thiamine mononitrate (vit B1) 100 100 mg PO DAILY #30 tabs 10/17/24 mg tablet (Vitamin B-1 (mononitrate)) ondansetron 4 mg disintegrating 4 mg PO Q6H PRN nausea and 10/22/24 tablet vomiting #14 tabs azithromycin 250 mg tablet See Rx Instructions PO .COMPLEX #6 11/17/24 tabs Allergies Allergy/AdvReac Type Severity Reaction Status Date / Time sulfamethoxazole (From Allergy Severe ALGY-Rash Verified 09/18/24 10:58 Sulfamethoxazole-Trimethoprim) trimethoprim (From Allergy Severe ALGY-Rash Verified 09/18/24 10:58 Sulfamethoxazole-Trimethoprim) adhesive tape Allergy Unknown blisters Verified 09/18/24 10:58 Cephalosporins Allergy Unknown unknown Verified 09/18/24 10:58 doxycycline Allergy ADR-Vomitin Verified 09/18/24 10:58 g latex Allergy blisters Verified 09/18/24 10:58 Sulfa (Sulfonamide Allergy Unknown Verified 10/16/24 07:58 Antibiotics) PFS ED PFS: Medical History (Updated 11/17/24 @ 20:27 by uQoc Bernstein DO) Tachycardia Diabetes Deep vein thrombosis (DVT) during Chronic anticoagulation Squamous cell carcinoma of anal canal Diabetes mellitus End-stage renal disease Surgical History Status post surgery (05/19/20) Removal of peritoneal dialysis catheter Port-A-Cath in place S/P hemodialysis catheter insertion (01/09/20) Removed 11/18/2020 Peritoneal dialysis status H/O colonoscopy H/O hand surgery History of hip surgery History of hysterectomy Family History Other Cancer Diabetes Denies family history of Anesthesia complication Bleeding disorder Social History Smoking and tobacco/nicotine status: current every day tobacco/nicotine user Alcohol intake: never Substance/Drug Use: never Household members: family Marital status: Single Current occupational status: disabled Course Vital Signs: Vital signs: Vital Signs Temperature 97.5 F L 11/17/24 16:14 Pulse Rate 99 11/17/24 21:08 Respiratory Rate 18 11/17/24 21:08 Blood Pressure 147/68 11/17/24 21:08 Pulse Oximetry 93 11/17/24 21:08 Oxygen Delivery Me thod Room Air 11/17/24 20:55 MDM - SOB/Dyspnea Medical Decision Making Received from previous physician checkout at shift change. Patient is mildly tachycardic. Saturations have been above 93% on room air. She is given Ativan, Solu-Medrol, DuoNeb treatment with some improvement. Vitals are otherwise stable. Hemoglobin is 8. Platelets are 136. Creatinine is 4.5 with a BUN of 35. She is a dialysis patient. Potassium is normal. Chest x-ray shows interstitial prominences. CTA shows patchy airspace disease in the right middle lobe with mild ground glass opacities in the bilateral upper lobes. There are also small bilateral pleural effusions. This could be an acute pulmonary edema type situation. There is no pulmonary embolus. Her troponin is elevated as is her BNP, but these are chronically elevated in this dialysis patient. Troponin level at 2 hours. She is feeling improved. She still mildly tachycardic. Will cover airspace disease with doxycycline. First dose here. She does make urine. Will give a single dose of Lasix in case this is mild edema. She has dialysis next on Tuesday. Lab Data 11/17/24 17:42 11/17/24 17:42 Labs/Radiology: Radiology Impressions Chest X-Ray 11/17/24 16:17 IMPRESSION: Interstitial prominence and reticulonodular opacities about the periphery could reflect atypical infectious/inflammatory process or trace interstitial edema. Chest CTA 11/17/24 18:28 IMPRESSION: 1. No definitive evidence of pulmonary embolism or right heart strain. 2. Aortic and coronary atherosclerosis. 3. Patchy airspace disease in the right middle lobe, with mild ground-glass opacities in the bilateral upper lobes, nonspecific although concerning for multifocal pneumonia. Small bilateral pleural effusions. Laboratory Results WBC 5.67 10^3/uL (3.29-11.43) 11/17/24 17:42 RBC 2.42 10^6/uL (3.85-5.65) L 11/17/24 17:42 Hgb 8.10 g/dL (11.27-16.99) L 11/17/24 17:42 Hct 27.5 % (36-47) L 11/17/24 17:42 MCV 113.6 fl (85-98) H 11/17/24 17:42 MCH 33.5 pg (27-33) H 11/17/24 17:42 MCHC 29.5 g/dL (30-55) L 11/17/24 17:42 RDW 14.5 % (12.1-15.1) 11/17/24 17:42 Plt Count 136 10^3/cmm (157-399) L 11/17/24 17:42 MPV 9.2 fL (7.4-10.4) 11/17/24 17:42 Neut % (Auto) 75.3 % 11/17/24 17:42 Lymph % (Auto) 16.0 % 11/17/24 17:42 [place] % (Auto) 5.1 % 11/17/24 17:42 Eos % (Auto) 2.6 % 11/17/24 17:42 Baso % (Auto) 0.5 % 11/17/24 17:42 Neut # (Auto) 4.26 10^3/uL (1.8-7.7) 11/17/24 17:42 Lymph # (Auto) 0.9 10^3/uL (0.8-4.8) 11/17/24 17:42 [place] # (Auto) 0.3 10^3/uL (0.2-0.9) 11/17/24 17:42 Eos # (Auto) 0.2 10^3/uL (0.0-0.8) 11/17/24 17:42 Baso # (Auto) 0.0 10^3/uL (0.0-0.1) 11/17/24 17:42 Nucleated RBC % (auto) 0 % 11/17/24 17:42 Nucleated RBCs # 0.0 /100WBC 11/17/24 17:42 D-Dimer 2.98 ug/mLFEU (0-0.59) H 11/17/24 17:42 Sodium 141 mmol/L (136-145) 11/17/24 17:42 Potassium 4.3 mmol/L (3.5-5.1) 11/17/24 17:42 Chloride 100 mmol/L (98-107) 11/17/24 17:42 Carbon Dioxide 29 mmol/L (22-29) 11/17/24 17:42 Anion Gap 16.3 (5-19) 11/17/24 17:42 BUN 35 mg/dL (6-20) H 11/17/24 17:42 Creatinine 4.5 mg/dL (0.5-0.9) H 11/17/24 17:42 GFR Calculation 10.3 mL/min (90-130) L 11/17/24 17:42 Glucose 149 mg/dL (65-115) H 11/17/24 17:42 Calculated Osmolality 303 mOsm/kg (285-295) H 11/17/24 17:42 Calcium 9.5 mg/dL (8.5-10.5) 11/17/24 17:42 Total Bilirubin 0.5 mg/dL (0.15-1.2) 11/17/24 17:42 AST 24 U/L (0-32) 11/17/24 17:42 ALT 31 U/L (0-33) 11/17/24 17:42 Alkaline Phosphatase 94 U/L (35-105) 11/17/24 17:42 Troponin T Baseline 71 ng/L (0-10) H 11/17/24 17:42 Troponin T 120 Minute 68.32 ng/L (0-10) H 11/17/24 19:33 Delta Troponin T -2.68 ABS# (0-10) L 11/17/24 19:33 NT-Pro-B Natriuret Pep 71960 pg/mL (0-125) H 11/17/24 17:42 Total Protein 6.1 g/dL (6.6-8.7) L 11/17/24 17:42 Albumin 3.9 g/dL (3.5-5.2) 11/17/24 17:42 Globulin 2.2 g/dL (1.3-4.6) 11/17/24 17:42 Lipase 111 U/L (13-60) H 11/17/24 17:42 Influenza A (PCR) Negative (Negative) 11/17/24 16:26 Influenza Type B (PCR) Negative (Negative) 11/17/24 16:26 RSV (PCR) Negative (Negative) 11/17/24 16:26 SARS-CoV-2 (PCR) Negative (Negative) 11/17/24 16:26 Discharge Plan Discharge Patient Disposition: Home Clinical Impression: Tachycardia, ESRD (end stage renal disease) on dialysis, Pneumonitis, Pulmonary edema Condition: Stable Prescriptions: New azithromycin 250 mg tablet See Rx Instructions .ROUTE .COMPLEX Qty: 6 0RF Rx Instructions: For 250 mg dose pack: take 500 mg today (day 1), then 250 mg for 4 days (days 2-5) No Action diphenhydramine HCl [Benadryl] 25 mg capsule 25 mg PO TID PRN (Reason: Itching) acetaminophen 325 mg capsule 650 mg PO QID PRN (Reason: Pain) pantoprazole 40 mg tablet,delayed release (DR/EC) 40 mg PO BID sodium bicarbonate 650 mg tablet 650 mg PO DAILY PRN (Reason: Dialysis) albuterol sulfate 90 mcg/actuation HFA aerosol inhaler 2 inh inhalation QID Qty: 8.5 4RF ropinirole 0.25 mg Tablet 0.25 mg PO BEDTIME melatonin 10 mg Capsule 10 mg PO BEDTIME RenaPlex-D 800 mcg-12.5 mg -2,000 unit Tablet 1 tab PO DAILY amlodipine 10 mg tablet 10 mg PO DAILY citalopram 20 mg tablet 20 mg PO DAILY ondansetron 4 mg tablet,disintegrating 4 mg PO Q6H PRN (Reason: nausea and vomiting) Qty: 14 0RF Ozempic 1 mg/dose (4 mg/3 mL) pen injector 1 mg SUBCUT Q7D thiamine mononitrate (vit B1) [Vitamin B-1 (mononitrate)] 100 mg Tablet 100 mg PO DAILY Qty: 30 0RF alprazolam [Xanax] 0.25 mg tablet 0.25 mg PO BID PRN (Reason: Anxiety and nausea) Qty: 10 0RF folic acid 1 mg tablet 1,000 mcg PO DAILY Qty: 30 0RF ondansetron 4 mg tablet,disintegrating 4 mg PO Q6H PRN (Reason: nausea and vomiting) Qty: 14 0RF Discharge Orders: Discharge ED (Routine); Ordered 11/17/24 Ordered By: Quoc Bernstein Referrals: Herber Hussein MD [Primary Care Provider, Family Practice] - 1-3 days Patient Instructions: Pulmonary Edema (ED), Pneumonitis (ED), Opioid Safety, Pain Management, Patient Portal & Navneet Instructions Activity Restrictions/Additional Instructions: Return for worsening shortness of breath, chest discomfort, fever, any other concerning symptoms despite treatment. Let them know you were seen here had dialysis on Tuesday or Tuesday. They may wish to alter your treatment. Print Language: Sudanese Coding Level of Care Code ED Cotton Roll Packer for Chuy Fitch
--- NOTE | 2024-11-17 17:15 | ECG_ITS ---
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 Measurements Intervals [place] Rate: 109 P: 76 WI: 116 QRS: 40 QRSD: 101 T: 79 QT: 371 QTc: 501 Interpretive Statements SINUS TACHYCARDIA WITH SHORT WI INTERVAL NONSPECIFIC ST & T-WAVE ABNORMALITY ABNORMAL ECG Compared to ECG 11/17/2024 16:20:02 NO CHANGE Electronically Signed On 11-18-2024 22:14:53 CDT by Janusz Schaefer M.D. [email or web address]
[2024-11-17 17:20] LABS: Respiratory Syncytial Virus Ce NEGATIVE (Negative); SARS-CoV-2 PCR NEGATIVE (Negative)
[2024-11-17 17:50] LABS: Hematocrit 27.5 % (36-47); Hemoglobin 8.10 g/dL (11.27-16.99); Mean Corpuscular HGB Conc 29.5 g/dL (30-55); Mean Corpuscular Hemoglobin 33.5 pg (27-33); Mean Corpuscular Volume 113.6 fl (85-98); Nucleated Red Blood Cells % 0 %; Platelet Count 136 10^3/cmm (157-399); Red Blood Count 2.42 10^6/uL (3.85-5.65); White Blood Count 5.67 10^3/uL (3.29-11.43)
[2024-11-17 18:09] LABS: Troponin(5th) Baseline 71 ng/L (0-10)
[2024-11-17 18:10] LABS: Alanine Aminotransferase 31 U/L (0-33); Albumin Level 3.9 g/dL (3.5-5.2); Alkaline Phosphatase 94 U/L (35-105); Anion Gap 16.3 (5-19); Aspartate Amino Transferase 24 U/L (0-32); Blood Urea Nitrogen 35 mg/dL (6-20); Calcium 9.5 mg/dL (8.5-10.5); Carbon Dioxide 29 mmol/L (22-29); Chloride 100 mmol/L (98-107); Creatinine Clr Calc Pharmacy 15.8042; Globulin 2.2 g/dL (1.3-4.6); Glucose 149 mg/dL (65-115); Lipase 111 U/L (13-60); Osmolality Calculated 303 mOsm/kg (285-295); Potassium 4.3 mmol/L (3.5-5.1); Sodium 141 mmol/L (136-145); Total Protein 6.1 g/dL (6.6-8.7)
[2024-11-17 18:17] LABS: NT Pro B Type Natriuretic Pept 24837 pg/mL (0-125)
--- NOTE | 2024-11-17 18:28 | CTR_ITS ---
PROCEDURE INFORMATION: Exam: CTA Chest With Contrast Exam date and time: 11/17/2024 6:41 PM Age: 49 years old Clinical indication: Abnormal findings; Abnormal diagnostic tests; Elevated d-dimer; Shortness of breath; SOB with dimer of 2.98; Additional info: Shortness of breath elevated d-dimer TECHNIQUE: Imaging protocol: Computed tomographic angiography of the chest with contrast. Exam focused on the arteries. 3D rendering (Not supervised by radiologist): MIP and/or 3D reconstructed images were created by the technologist. Radiation optimization: All CT scans at this facility use at least one of these dose optimization techniques: automated exposure control; mA and/or kV adjustment per patient size (includes targeted exams where dose is matched to clinical indication); or iterative reconstruction. Contrast material: OMNI 350; Contrast volume: 76 ml; Contrast route: INTRAVENOUS (IV); COMPARISON: CT chest [facility] [id number] 06/03/2023 10:47 PM RADIATION DOSE METRICS: Total DLP (mGy-cm): 335.33 FINDINGS: Pulmonary arteries: No definitive evidence of pulmonary embolism or right heart strain. Aorta: Aortic and coronary atherosclerosis. Lungs: Patchy airspace disease in the right middle lobe, with mild ground-glass opacities in the bilateral upper lobes, nonspecific although concerning for multifocal pneumonia. Pleural spaces: Unremarkable. No pneumothorax. No pleural effusion. Heart: Unremarkable. No cardiomegaly. No pericardial effusion. Lymph nodes: Probable reactive subcarinal node. Otherwise Unremarkable. Spleen: Small splenule. Bones/joints: Unremarkable. No acute fracture. Soft tissues: Unremarkable. CT/CT angio chest PE protcl [id number] IMPRESSION: 1. No definitive evidence of pulmonary embolism or right heart strain. 2. Aortic and coronary atherosclerosis. 3. Patchy airspace disease in the right middle lobe, with mild ground-glass opacities in the bilateral upper lobes, nonspecific although concerning for multifocal pneumonia. Small bilateral pleural effusions.
[2024-11-17] MEDS: LORazepam 1 MG/0.5 ML injection IVP (18:38)
[2024-11-17] MEDS: iohexol 350 mg/mL 500 mL Btl (per mL) PO (18:45)
[2024-11-17 20:00] LABS: Troponin 5 2HR 68.32 ng/L (0-10)
[2024-11-17 20:08] LABS: Troponin 5 2HR Delta -2.68 ABS# (0-10)
[2024-11-17] MEDS: metoprolol tartrate 1 mg/1 mL SDV 5 mL 5 MG IVP (20:24)
[2024-11-17] MEDS: methylPREDNISolone sod succ 125 mg/2 mL INJ IVP (20:24)
[2024-11-17] MEDS: FUROsemide 10 mg/mL SDV 4mL 40 MG IVP (20:44)
== END 2024-11-17 21:08 | disposition home or self-care (01) ==
PROVIDERS: Emergency Medicine; Emergency Provider Emergency Medicine; PCP Family Medicine
DX: R00.0 Tachycardia, unspecified (principal); E11.22 Type 2 diabetes mellitus with diabetic chronic kidney disease; N18.6 End stage renal disease; Z99.2 Dependence on renal dialysis; Z79.01 Long term (current) use of anticoagulants; Z85.048 Personal history of other malignant neoplasm of rectum, rectosigmoid junction, and anus; Z72.0 Tobacco use; Z11.52 Encounter for screening for COVID-19; J81.1 Chronic pulmonary edema; J98.4 Other disorders of lung
CPT/HCPCS: 36415; 71045; 71275; 80053; 83690; 83880; 84484; 85025; 85378; 87637; 93005; 94640; 96374; 96375; 99285; J1938; J2060; J2919; J3490; J9999; Q0144

== ENCOUNTER 2024-11-26 10:22 | Observation (INO) | payer MEDICARE, MEDICAID, SELFPAY ==
[2024-11-26] VITALS (16 sets, daily range): BP systolic 124–159; BP diastolic 57–74; PULSE 75–100; RESP 16–17; TEMP 36.9–37.1; O2SAT 87–97; BMI 23.4; BMI 23.1
--- NOTE | 2024-11-26 10:22 | CT_ITS ---
WS: [id number] CT HEAD TECHNIQUE: Noncontrast CT of the head obtained from the skullbase to the vertex. CLINICAL INFORMATION: Altered mental status COMPARISON: 10/22/2024 DLP: 1021.[address] scans at [facility] use at least one of these dose optimization techniques: automated exposure control; mA and/or kV adjustment per patient size (includes targeted exams where dose is matched to clinical indication); or iterative reconstruction. FINDINGS: No evidence of intracranial hemorrhage or mass effect. Ventricular system and basal cisterns are patent. Mild small vessel changes with mild parenchymal volume loss. No extra-axial fluid collections. No evidence of mass or mass effect. Vascular calcification. Incidental cerebellar tonsillar ectopia Mild mucosal thickening in the ethmoid air cells. Mastoid air cells are well aerated. I CT/CT head wo con* [id number] IMPRESSION: 1. No evidence of intracranial hemorrhage or mass effect. 2. No acute intracranial findings.
--- NOTE | 2024-11-26 10:22 | XR_ITS ---
WS: [id number] Portable AP upright chest, 11/26/2024 Clinical Data: dyspnea/cough Comparison: Portable chest, 11/17/2024 Findings: No nodules, masses or effusions are seen. The heart is normal. The pulmonary vascularity is not increased. No pneumonia or pneumothorax is seen. The diaphragms are flattened. There is a left infusion catheter ending in the superior vena cava. XR/XR chest 1V portable [id number] Impression: Hyperinflation.
--- NOTE | 2024-11-26 10:22 | ECG_ITS ---
[employer] Test Date: 2024-11-26 Pat Name: Bharati Anthony Department: Room: Gender: Female Responder: : 1975 Requested By: Rafat Martinez Order Number: [id number] Reading MD: DESTIN GUEVARA Measurements Intervals [place] Rate: 99 P: 62 MT: 112 QRS: 11 QRSD: 113 T: 91 QT: 416 QTc: 535 Interpretive Statements SINUS RHYTHM WITH SHORT MT INTERVAL POSSIBLE LEFT ATRIAL ENLARGEMENT [-0.1mV P-WAVE IN V1/V2] POSSIBLE LATERAL MYOCARDIAL INFARCTION , PROBABLY OLD [30 ms Q WAVE IN I/aVL/V5/V6] Compared to ECG 11/17/2024 17:15:09 Myocardial infarct finding now present Sinus tachycardia no longer present T-wave abnormality no longer present Electronically Signed On 11-26-2024 10:43:56 CDT by DESTIN GUEVARA [email or web address]
--- OUTSIDE RECORDS SUMMARY | 2024-11-26 10:36 | XMS_ITS | Clinical Summary ---
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 05/25/2018 Acute nontraumatic kidney injury 05/25/2018 Essential hypertension 05/25/2018 Type 2 diabetes mellitus 05/25/2018 IgA nephropathy 05/25/2018 Thromboembolism of vein 06/12/2017 Tobacco use 04/26/2017 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 Methamphetamine abuse 04/01/2017 Splenic infarction 04/01/2017 Encounters Date Type Department Care Team Description 11/26/2024 Treatment [facility] [address] [place] [address] Daisy Lindsay NP Heart failure; End stage renal disease; Dependence on renal dialysis 11/21/2024 Orders Only [facility] [address] [place] [address] Bee Chavarria MD 11/21/2024 Treatment [facility] [address] [place] [address] Ana Viramontes NP End stage renal disease; Dependence on renal dialysis 11/14/2024 Orders Only [facility] [address] [place] [address] Bee Chavarria MD 11/12/2024 Treatment [facility] [address] [place] [address] Ana Viramontes NP End stage renal disease; Dependence on renal dialysis 11/07/2024 Orders Only [facility] [address] [place] [address] Bee Chavarria MD 11/05/2024 [facility], [facility] [address] [place] [address] Bee Chavarria MD 11/05/2024 TCM in Dialysis Clinic [address] [place] [address], [facility] [address] [place] [address] Daisy Lindsay NP 11/02/2024 Telephone [facility], [facility] [address] [place] [address] Bee Chavarria MD 10/26/[address] [place] [address] [place] [address] Daisy Lindsay NP Malignant neoplasm of colon; Type 2 diabetes mellitus with diabetic chronic kidney disease; Bipolar disorder; Chronic obstructive pulmonary disease; Osteomyelitis; Secondary hyperparathyroidism of renal origin; End stage renal disease; Dependence on renal dialysis 10/24/2024 [facility], [facility] [address] [place] [address] Bee Chavarria MD 10/19/2024 Orders Only [facility], [facility] [address] [place] [address] Bee Chavarria MD 10/10/2024 Orders [facility], [facility] [address] [place] [address] Bee Chavarria MD 10/10/[address] [place] [address], [facility] [address] [place] [address] Bee Chavarria MD End stage renal disease; Dependence on renal dialysis 10/05/2024 Orders Only [facility], [facility] [address] [place] [address] Bee Chavarria MD 10/05/2024 Documentation [facility] [address] [place] [address] Daisy Lindsay NP 10/04/2024 Telephone [facility], [facility] [address] [place] [address] Yuliana Maradiaga NP 09/26/2024 Orders Only [facility], [facility] [address] [place] [address] Bee Chavarria MD 09/26/[address] [place] [address], [facility] [address] [place] [address] Daisy Lindsay NP End stage renal disease; Dependence on renal dialysis 09/19/2024 Orders Only [facility], [facility] [address] [place] [address] Bee Chavarria MD 09/19/[address] [place] [address], [facility] [address] [place] [address] Daisy Lindsay NP End stage renal disease; Dependence on renal dialysis 09/12/2024 Orders Only [facility], [facility] [address] [place] [address] Bee Chavarria MD 09/10/[address] [place] [address], [facility] [address] [place] [address] Ana Viramontes NP End stage renal disease; Dependence on renal dialysis 09/05/2024 Orders [facility], [facility] [address] [place] [address] Bee Chavarria MD 09/05/[address] [place], [place] [address]rology [facility], [facility] [address] [place] [address] Bee Chavarria MD End stage renal disease; Dependence on renal dialysis 08/29/2024 Orders Only [facility] [address] [place] [address] Bee Chavarria MD 08/27/2024 Treatment [facility], [facility] [address] [place] [address] Ana Viramontes, [place] End stage renal disease; Dependence on [...] Cancer Screening: Sigmoidoscopy 06/11/2023 Diabetes: Hemoglobin A1C 05/22/202402/21/2 024, 11/23/2023, 08/24/2023, Additional history exists Pneumococcal Vaccine: 50+ Ye ars (3 of 3 - PCV20 or PCV21) 07/23/2024 07/24/2019, 05/21/2019 Influenza Vaccine (#1) 2024 , 12/29/2022, 12/16/2021, Additional history exists Pneumococcal Vaccine: Peds ( 0 to 5 Years) and At-Risk Patients (6 to 49 Years) Discontinued 07/24/2019, 05/21/2019 Procedures Procedure Name Priority Date/Time Associated Diagnosis Comments [facility] LAB RESULTS Routine 11/21/2024 HD KINETICS Routine 11/21/2024 CHEMISTRY Routine 11/21/2024 POST CHEMISTRY Routine 11/21/2024 CHEMISTRY Routine 11/21/2024 TRACE ELEMENTS Routine 11/21/2024 HEMATOLOGY Routine 11/21/2024 HEMATOLOGY Routine 11/14/2024 HEMATOLOGY Routine 11/07/2024 HEMATOLOGY [...] 09/12/2024 HEMATOLOGY Routine 09/05/2024 HEMATOLOGY Routine 08/29/2024 SPECIAL CHEMISTRY Routine 02/22/2024 from Last 3 Months or Most Recently Relevant to Health Maintenance Results * HD KINETICS (11/21/2024) Only the most recent of3 resultswithin the time period is included. % Urea Reduction 74 65 - 80 % [facility] 11/21/2024 11/22/2024 12: 02 PM CDT Narrative [facility] - 11/22/2024 Unless otherwise specified, test(s) performed at: [facility], [address] [place] [id number] BERRY PICKER: Michael Knox M.D. For any questions, please call customer service at FREQUENCY:MONTHLY Resulting Agency Comment Specimen source: Plasma us Bee Chavarria MD LAB BLOOD ORDERABLES Final Re sult [facility]...Exactly See order comments or contact performing lab Unknown, [place] * POST CHEMISTRY (11/21/2024) Only the most recent of3 resultswithin the time period is included. [facility] BUN Post Dialysis 11 6 - 19 mg/dL [facility] 11/21/2024 11/22/2024 12: 02 PM CDT Narrative [facility] - 11/22/2024 Unless otherwise specified, test(s) performed at: [facility], [address] [place] [id number] BERRY PICKER: Michael Konx M.D. For any questions, please call customer service at FREQUENCY:MONTHLY Resulting Agency Comment Specimen source: Plasma Bee Chavarria MD LAB BLOOD ORDERABLES Final Re sult Performing Organization Address [facility] Co de Phone Number [facility] See order comments or contact performing lab Unknown, [place] * TRACE ELEMENTS (11/21/2024) [facility] Aluminum <5 0 - 10 mcg/L [facility] Comment: This test was developed and its performance characteristics determined by [facility]. It has not been cleared or approved by the FDA. The laboratory is regulated under CLIA as qualified to perform high complexity testing. This test is used for clinical purposes. It should not be regarded as investigational or for research. 11/21/2024 11/22/2024 10: 12 AM CDT [facility] - 11/22/2024 Unless otherwise specified, test(s) performed at: [facility], [address] [place] [id number] BERRY PICKER: Michael Knox M.D. For any questions, please call customer service at FREQUENCY:MONTHLY Resulting Agency Comment Specimen source: Serum Bee Chavarria MD LAB BLOOD ORDERABLES Final Re sult Performing Organization Address [facility] Co de Phone Number [facility]...Exactly See order comments or contact performing lab Unknown, [place] * (ABNORMAL) HEMATOLOGY (11/21/2024) Only the most recent of14 resultswithin the time period is included. [facility] Neutrophils 68.9 40.0 - 75.0 % [facility] Lymphocytes Relative 20.1 19.0 - 48.0 % [facility] Monocytes 3.8 3.0 - 10.0 % [facility] Eosinophils Relative 4.5 0.0 - 7.0 % [facility] Basophils Relative 0.5 0.0 - 1.5 % [facility] KARON 2.1 0.0 - 4.0 % [facility] WBC 5.03 4.80 - 10.80 1000/mcL [facility] RBC 2.32(L) 4.20 - 5.40 mill/mcL [facility] Hematocrit 23.7(L) 37.0 - 47.0 % [facility] MCV 102(H) 80 - 100 fl [facility] MCH 34.4(H) 27.0 - 31.0 pg [facility] MCHC 33.7 30.0 - 36.0 g/dL [facility] RDW 17.0(H) 11.5 - 14.5 % [facility] Hemoglobin 8.0(L) 12.0 - 16.0 g/dL [facility] Hemoglobin x 3 24(L) 36.0 - 48.0 % [facility] Platelets 183 130 - 400 1000/mcL [facility] 11/21/2024 11/22/2024 10: 48 AM CDT Narrative [facility] - 11/22/2024 Unless otherwise specified, test(s) performed at: [facility], [address] [place] [address] BERRY PICKER: Michael Knox M.D. For any questions, please call customer service at FREQUENCY:MONTHLY Resulting Agency Comment Specimen source: Blood us Bee Chavarria MD LAB BLOOD ORDERABLES Final Re sult [facility] See order comments or contact performing lab Unknown, [place] * (ABNORMAL) [employer] Chemistry (11/21/2024) Only the most recent of5 resultswithin the time period is included. Ferritin 1,058(H) 10 - 291 ng/mL [facility] BUN 42(H) 6 - 19 mg/dL [facility] Creatinine 5.27(H) 0.60 - 1.30 mg/dL [facility] BUN/Creatinine Ratio 8.0(L) 10.0 - 20.0 [facility] Sodium 140 136 - 145 mEq/L [facility] Potassium 4.4 3.5 - 5.1 mEq/L [facility] Chloride 104 96 - 108 mEq/L [facility] Bicarbonate (CO2) 22 22 - 29 mEq/L [facility] Calcium 8.6 8.4 - 10.2 mg/dL [facility] Corrected Calcium 8.9 8.4 - 10.2 mg/dL [facility] Comment: Corrected Calcium is not equivalent to measured Ionized Calcium. Phosphorus 5.3(H) 2.6 - 4.5 mg/dL [facility] Calcium Phosphorus Product 46 0 - 54 [facility] Calcium Phosporus Product, Cor 47 0 - 54 [facility] Alkaline Phosphatase 73 35 - 104 U/L [facility] Total Protein 5.8(L) 6.0 - 8.5 g/dL [facility] Albumin 3.6 3.5 - 5.2 g/dL [facility] Globulin, Total 2.2 2.0 - 4.0 g/dL [facility] A/G Ratio 1.6 1.0 - 2.0 [facility] Magnesium 1.8 1.6 - 2.6 mg/dL [facility] Iron 89 30 - 160 mcg/dL [facility] UIBC 130(L) 155 - 355 mcg/dL [facility] TIBC 219 185 - 515 mcg/dL [facility] Iron Saturation (TSat) 41 20 - 55 % [facility] 11/21/2024 11/22/2024 4:0 7 PM CDT Narrative [facility] - 11/22/2024 Unless otherwise specified, test(s) performed at: [facility], [address] [place] [address] BERRY PICKER: Michael Knox M.D. For any questions, please call customer service at FREQUENCY:MONTHLY Resulting Agency Comment Specimen source: Serum us Bee Chavarria MD LAB BLOOD ORDERABLES Edited R esult - Final [facility] See order comments or contact performing lab Unknown, [place] * [facility] Results (11/21/2024) Only the most recent of3 resultswithin the time period is included. WSTDKT/V 2.4 [facility] spKt/V (Daugirdas II) 1.50 [facility] eKdrt/V 1.21 [facility] eKt/V (Tattersall) 1.24 [facility] eKt/V Gotch 1.21 [facility] spKt/V Gotch 1.52 [facility] eNPCR 0.70 [facility] nPCR_HD 0.77 [facility] PCR 42.05 [facility] 11/21/2024 11/21/2024 [facility] Ordering Provider LAB BLOOD ORDERABLES Final Result [facility] Contact Performing lab Unknown, [place] * (ABNORMAL) SPECIAL CHEMISTRY (02/22/2024) Hemoglobin A1C 6.1(H) 4.8 - 5.9 % [facility] 02/22/2024 02/23/2024 11: 16 AM WALL WASHER Narrative [facility] - 02/23/2024 Unless otherwise specified, test(s) performed at: [facility], [address] [place] [address] BERRY PICKER: Michael Knox M.D. For any questions, please call customer service at FREQUENCY:MONTHLY Resulting Agency Comment Specimen source: Blood Bee Chavarria MD LAB BLOOD BANK TEST ORDERABLE S Final Result [facility]...Exactly See order comments or contact performing lab Unknown, [place] from Last 3 Months or Most Recently Relevant to Health Maintenance Insurance Medicaid [place] ([id number]) Medicare Care Teams Deer Farmer Relationship Specialty Start Date End Date Herber Hussein MD [address] [place] [address] PCP - General Family Medicine 07/14/18"
--- OUTSIDE RECORDS SUMMARY | 2024-11-26 10:36 | XMS_ITS | Encounter Summary ---
Author Organization [facility] Address [address] [place] [address] Phone Care Team Providers Care Software Engineer Intern Name Role Phone Herber Hussein MD Primary Care Provider [phone] Encounter Details Date Type Department Care Team (Late st Contact Info) Description 11/21/2024 Treatment [facility] [address] [place] [address] Ana Viramontes NP [address] [place] [address] End stage renal disease; Dependence [...] Dialysis Note - Ana Viramontes NP - 11/21/2024 12:00 AM CDT Patient: Bharati Anthony, 1975, 49y, F Dialysis Location: [facility] Attending Price Lister: Bee Chavarria Service Date: 11/21/2024 Service Provider: Ana Viramontes NP I met [...] PCP. Medications and labs reviewed. LAST HOSPITALIZATION Discharge Diagnosis: K31.84 Gastroparesis Admission Date 10/28/24 Discharge Date 11/01/24 TRANSPLANT Comments: She has received paperwork from [facility] for transplant. She has now decided again against tranplant. Ongoing discussions. DIALYSIS PRESCRIPTION IHD 3x Week Start date: 11/12/24 Dialyzer: 180NRe Optiflux BFR: 450 DFR: Autoflow 2 Potassium: 3.0 Sodium: 137 EDW: 71 Duration: 2:45 Calcium: 2.5 Bicarb: 40 Rx updated on: 11/12/2024 TREATMENT ASSESSMENT Comments: Stable Blood pressure controlled. BP Stand Pre 11/19/2024: 134/70 11/16/2024: 146/58 11/14/2024: 162/78 BP Sit Pre 11/19/2024: 150/78 11/16/2024: 140/66 11/14/2024: 172/73 BP Stand Post 11/19/2024: 118/57 11/16/2024: 129/56 11/14/2024: 136/72 BP Sit Post 11/19/2024: 141/67 11/16/2024: 134/94 11/14/2024: 127/73 Tx Duration 11/19/2024: 2:45 11/16/2024: 2:50 11/14/2024: 2:46 Missed Treatments 0 - last 30 days 1 - last 60 days 09/24 - recent FLUID ASSESSMENT Comments: Stable Fluid status acceptable. Interdialytic weight gain acceptable. EDW (kg) 11/19/2024: 71.0 11/16/2024: 71.0 11/14/2024: 71.0 Weight Pre (kg) 11/19/2024: 73.1 11/16/2024: 73.1 11/14/2024: 73.0 Weight Post (kg) 11/19/2024: 73.0 11/16/2024: 72.8 11/14/2024: 72.3 PWV (kg) 11/19/2024: 2.0 11/16/2024: 1.8 11/14/2024: 1.3 UF Rate (mL/kg/hr) 11/19/2024: 0.5 11/16/2024: 1.5 11/14/2024: 3.5 ADEQUACY ASSESSMENT Comments: Stable trend. Adequacy target met. Prescription compliance acceptable. No changes indicated. spKt/V, URR 10/24/2024: 1.42, 74.0 09/26/2024: 1.64, 80.0 08/24/2024: 1.67, 79.0 ACCESS ASSESSMENT Access Type: AVFistula Access SubType: Transposed Access Status: Active (In Use) - 10/27/2020 Access Location: Right Thigh Created: 08/19/2020 Flow 08/29/2024: ?199908/10/2024: ?199908/08/2024: ?1999 Vascular access reviewed. Current access is temporary and referral has been made for fistula/graft placement. ANEMIA ASSESSMENT Comments: On IV iron and DORINDA protocol. HGB below goal. Iron parameters not acceptable. Treatment protocol ordered. HGB 11/14/2024: 8.0 11/07/2024: 9.4 11/05/2024: 10.3 Ferritin 08/24/2024: 1622.0 08/15/2024: 1808.0 05/23/2024: 1045.0 Epoetin Mata (Epogen), IVP (units) 11/19/2024: 4200 11/16/2024: 3400 11/14/2024: 3400 Iron Sucrose (Venofer) (mg) 11/19/2024: 50 11/12/2024: 50 11/05/2024: 50 BMM ASSESSMENT Comments: PTH improving Phos and Ca at goal. PTH, Intact 08/24/2024: 446.0 05/23/2024: 534.0 Calcium, Phosphorus 10/24/2024: 9.7, 5.9 09/19/2024: 8.9, 5.4 08/24/2024: 8.3, 4.6 Vitamin D (Calcitriol) Oral (mcg) 11/19/2024: 1.0 11/16/2024: 1.0 11/14/2024: 1.0 NUTRITION ASSESSMENT Comments: Stable at goal. Potassium controlled. Albumin controlled. No changes indicated. Potassium, Albumin 10/24/2024: 3.8, 4.3 09/19/2024: 3.8, 4.1 08/24/2024: 3.7, 3.7 eNPCR 10/24/2024: 0.53 09/26/2024: 0.91 08/24/2024: 0.7 PHYSICAL EXAM Exam Performed. Vital Signs Reviewed. CV - Blood pressure noted. EXT - No edema. DIAGNOSIS Chief Complaint: N18.6 End stage renal disease Patient data updated 11/21/2024 at 9:05 AM Signed By: Ana Viramontes NP on 11/21/2024 9:08:15 AM documented in this encounter Plan of Treatment Not on file documented as of this encounter Visit Diagnoses Diagnosis End stage renal disease Dependence on renal dialysis documented in this encounter Care Teams Software Engineer Intern Relationship Specialty Start Date End Date Herber Hussein MD [address] [place] [address] PCP - General Family Medicine 07/14/18 documented as of this encounter
--- OUTSIDE RECORDS SUMMARY | 2024-11-26 10:36 | XMS_ITS | Encounter Summary ---
Author Organization [facility] Address [address] [place] [address] Phone Care Team Providers Care Work Force Advisor Name Role Phone Herber Hussein MD Primary Care Provider [phone] Reason for Visit * Reason Comments Med Refill Encounter Details Date Type Department Care Team (Late st Contact Info) Description 11/20/2020 Refill [facility] [address] [place] [address] Mohsen Mann MD [address] [place] [address] Social History Tobacco Use Types [...] on filedocumented in this encounter Care Teams Work Force Advisor Relationship Specialty Start Date End Date Herber Hussein MD [address] [place] [address] PCP - General Family Medicine 07/14/18 documented as of this encounter
--- OUTSIDE RECORDS SUMMARY | 2024-11-26 10:36 | XMS_ITS | Encounter Summary ---
Author Organization [facility] Address [address] [place] [address] Phone Care Team Providers Care Costume Maker Name Role Phone Herber Hussein MD Primary Care Provider [phone] Reason for Visit * Reason Comments Med Refill Encounter Details Date Type Department Care Team (Late st Contact Info) Description 01/30/2021 Refill [facility] [address] [place] [address] Mohsen Mann MD [address] [place] [address] Social History Tobacco Use Types [...] on filedocumented in this encounter Care Teams Costume Maker Relationship Specialty Start Date End Date Herber Hussein MD [address] [place] [address] PCP - General Family Medicine 07/14/18 documented as of this encounter
--- OUTSIDE RECORDS SUMMARY | 2024-11-26 10:36 | XMS_ITS | Encounter Summary ---
Author Organization [place] [facility] [employer], [facility] Address [address] [place] [address] Phone Care Team Providers Care Engine Specialist Name Role Phone Herber Hussein MD Primary Care Provider [phone] Encounter Details Date Type Department Care Team (Late st Contact Info) Description 11/21/2024 Orders Only [facility] [employer] [address] [place] [address] Bee Chavarria MD [address] [place] [address] Social History Tobacco Use Types [...] Procedure Name Priority Date/Time Associated Diagnosis Comments HD KINETICS Routine 11/21/2024 POST CHEMISTRY Routine 11/21/2024 TRACE ELEMENTS Routine 11/21/2024 HEMATOLOGY Routine 11/21/2024 CHEMISTRY Routine 11/21/2024 CHEMISTRY Routine 11/21/2024 appsplit [facility] LAB RESULTS Routine 11/21/2024 documented in this encounter Results * [facility] Lab Results (11/21/2024) Pathologist [facility] WSTDKT/V 2.4 [facility] spKt/V (Daugirdas II) 1.50 [facility] eKdrt/V 1.21 [facility] Center eKt/V (Tattersall) 1.24 [facility] eKt/V Gotch 1.21 [facility] e Center spKt/V Gotch 1.52 [facility] eNPCR 0.70 [facility] nPCR_HD 0.77 [facility] Center PCR 42.05 [facility] Center 11/21/2024 11/21/2024 Aissatou Ordering Provider LAB BLOOD ORDERABLES Final Result [facility] Center Contact Performing lab Unknown, [place] * HD KINETICS (11/21/2024) Pathologist [facility] % Urea Reduction 74 65 - 80 % [facility] 11/21/2024 11/22/2024 12: 02 PM CDT Narrative [facility] - 11/22/2024 Unless otherwise specified, test(s) performed at: [facility], [address] [place] [address] KOSHER INSPECTOR: Michael Knox M.D. For any questions, please call customer service at FREQUENCY:MONTHLY Resulting Agency Comment Specimen source: Plasma Bee Chavarria MD LAB BLOOD ORDERABLES Final Re sult [facility] SNTM[facility] See order comments or contact performing lab Unknown, [place] * (ABNORMAL) [facility] (11/21/2024) Ferritin 1,058(H) 10 - 291 ng/mL [facility] [...] 11/22/2024 Unless otherwise specified, test(s) performed at: [facility], [address] [place] [address] KOSHER INSPECTOR: Michael Knox M.D. For any questions, please call customer service at FREQUENCY:MONTHLY Resulting Agency Comment Specimen source: Serum us Bee Chavarria MD LAB BLOOD ORDERABLES Edited R esult - Final [facility] See order comments or contact performing lab Unknown, [place] * POST CHEMISTRY (11/21/2024) Pathologist [facility] BUN Post Dialysis 11 6 - 19 mg/dL [facility] 11/21/2024 11/22/2024 12: 02 PM CDT Narrative [facility] - 11/22/2024 Unless otherwise specified, test(s) performed at: [facility], [address] [place] [address] KOSHER INSPECTOR: Michael Knox M.D. For any questions, please call customer service at FREQUENCY:MONTHLY Resulting Agency Comment Specimen source: Plasma us Bee Chavarria MD LAB BLOOD ORDERABLES Final Re sult Performing Organization Address [facility] de Phone Number appsplit [facility] See order comments or contact performing lab Unknown, [place] * (ABNORMAL) Spectra Chemistry (11/21/2024) [facility] PTH 256(H) 16 - 80 pg/mL [facility] 11/21/2024 11/22/2024 10: 57 AM CDT N[facility]ative [facility] 11/[facility]24 Unless otherwise specified, test(s) performed at: [facility], [address] [place] [address] KOSHER INSPECTOR: Michael Knox M.D. For any questions, please call customer service at FREQUENCY:MONTHLY Resulting Agency Comment Specimen source: Plasma us Bee Chavarria MD LAB BLOOD ORDERABLES Final Re sult Performing Organization Address [facility] de Phone Number appsplit [facility] See order comments or contact performing lab Unknown, [place] * TRACE ELEMENTS (11/21/2024) [facility] Aluminum <5 0 - 10 mcg/L [facility] Comment: This test was developed and its performance characteristics determined by [facility]. It has not been cleared or approved by the FDA. The laboratory is regulated under CLIA as qualified to perform high complexity testing. This test is used for clinical purposes. It should not be regarded as investigational or for research. 11/21/2024 11/22/2024 10: 12 AM CDT Narrative [facility] - 11/22/2024 Unless otherwise specified, test(s) performed at: [facility], [address] [place] [id number] KOSHER INSPECTOR: Michael Knox M.D. For any questions, please call customer service at FREQUENCY:MONTHLY Resulting Agency Comment Specimen source: Serum us Bee Chavarria MD LAB BLOOD ORDERABLES Final Re sult [facility] See order comments or contact performing lab Unknown, [place] * (ABNORMAL) HEMATOLOGY (11/21/2024) Neutrophils 68.9 40.0 - 75.0 % [facility] [...] 11/21/2024 11/22/2024 10: 48 AM CDT Narrative [facility] - 11/22/2024 Unless otherwise specified, test(s) performed at: [facility], [address] [place] [address] KOSHER INSPECTOR: Michael Knox M.D. For any questions, please call customer service at FREQUENCY:MONTHLY Resulting Agency Comment Specimen source: Blood us Bee Chavarria MD LAB BLOOD ORDERABLES Final Re sult [facility] See order comments or contact performing lab Unknown, [place] documented in this encounter Visit Diagnoses Not on filedocumented in this encounter Care Teams Engine Specialist Relationship Specialty Start Date End Date Herber Hussein MD [address] [place] [address] PCP - General Family Medicine 07/14/18 documented as of this encounter
--- OUTSIDE RECORDS SUMMARY | 2024-11-26 10:36 | XMS_ITS | Encounter Summary ---
Author Organization [place] [facility] Address [address] [place] [address] Phone Care Team Providers Care Director Speech Name Role Phone Herber Hussein MD Primary Care Provider [phone] Reason for Visit * Reason Comments Med Refill Encounter Details Date Type Department Care Team (Late st Contact Info) Description 08/21/2021 Refill [place] [facility] [address] [place] [address] Mohsen Mann MD [address] [place] [address] Social History Tobacco Use Types [...] on filedocumented in this encounter Care Teams Director Speech Relationship Specialty Start Date End Date Herber Hussein MD [address] [place] [address] PCP - General Family Medicine 07/14/18 documented as of this encounter
--- OUTSIDE RECORDS SUMMARY | 2024-11-26 10:36 | XMS_ITS | Encounter Summary ---
Author Organization [facility] [facility] [employer] Address [address] [place] [address] Phone Care Team Providers Care Lineworker Name Role Phone Herber Hussein MD Primary Care Provider [phone] Reason for Visit * Reason Comments Med Refill Encounter Details Date Type Department Care Team (Late st Contact Info) Description 02/21/2024 Refill [facility] [address] [place] [address] Bee Chavarria MD [address] [place] [address] Social History Tobacco Use Types [...] on filedocumented in this encounter Care Teams Lineworker Relationship Specialty Start Date End Date Herber Hussein MD [address] [place] [address] PCP - General Family Medicine 07/14/18 documented as of this encounter
--- OUTSIDE RECORDS SUMMARY | 2024-11-26 10:36 | XMS_ITS | Encounter Summary ---
Author Organization [place] [facility] Address [address] [place] [address] Phone Care Team Providers Care Public Transit Trolley Driver Name Role Phone Herber Hussein MD Primary Care Provider [phone] Reason for Visit * Reason Comments Med Refill Encounter Details Date Type Department Care Team (Late st Contact Info) Description 06/23/2024 Refill [place] [facility] [address] [place] [address] Bee Chavarria MD [address] [place] [address] Social History Tobacco Use Types [...] on filedocumented in this encounter Care Teams Public Transit Trolley Driver Relationship Specialty Start Date End Date Herber Hussein MD [address] [place] [address] PCP - General Family Medicine 07/14/18 documented as of this encounter
--- OUTSIDE RECORDS SUMMARY | 2024-11-26 10:36 | XMS_ITS | Encounter Summary ---
Author Organization [place] [facility], [facility] Address [address] [place] [address] Phone Care Team Providers Care Retail Shift Supervisor Name Role Phone Herber Hussein MD Primary Care Provider [phone] Encounter Details Date Type Department Care Team (Late st Contact Info) Description 11/05/2024 TCM in Dialysis Clinic [facility], [facility] [address] [place] [address] Fabiana Butts, [place] [address] [place] [address] Social History Tobacco Use Types [...] Patient: Bharati Serna Raj : 1975 VBC: [facility] Note Type: Dialysis TCM Service Date: 11/05/2024 The patient was seen for a [id number] visit as part of Transitional Care Management services. Attending Domestic Freight Forwarder: RODDY HENDERSON Dialysis Location: [facility] Schedule: Shift: 1 INTERACTIVE CONTACT Contact with the patient or caregiver was made or attempted within 2 business days of discharge - details in the medical record. COMMENTS: HORACIO bailey [facility] called patient, reviewed and updated medications, reviewed [...] COMMENTS: Given metoclopramide and ondansetron Current [facility] Outpatient Medications acetaminophen (TYLENOL) tablet Take 500 [...] 98.4*F Current Dialysis Vitals BP Sit: 129/65 AP/RISK MANAGEMENT INTERN: 188/194 Pulse: 108 CARE COORDINATION Post-discharge follow-up appointments reviewed with the patient. COMMENTS: Follow up within the next 10 days with PCP and GI EDUCATION Education relevant to the discharge diagnosis provided to the patient or caregiver IMPRESSION & PLAN COMMENTS: Obtain Hgb today, assess for adjustments to DORINDA/iron replacement based upon results. VISIT DIAGNOSES CPT Code 87045 - High complexity, seen within 7 days of discharge. K92.0 Hematemesis K31.84 Gastroparesis Signed by: FABIANA BUTTS NP on 11/05/2024 at 08:19:48 AM Transcribed by: FABIANA BUTTS NP on 11/05/2024 at 08:19:48 AM documented in this encounter Plan of Treatment Not on file documented as of this encounter Visit Diagnoses Not on filedocumented in this encounter Care Teams Retail Shift Supervisor Relationship Specialty Start Date End Date Herber Hussein MD [address] [place] [address] PCP - General Family Medicine 07/14/18 documented as of this encounter
--- OUTSIDE RECORDS SUMMARY | 2024-11-26 10:36 | XMS_ITS | Encounter Summary ---
Author Organization [place] [facility] [employer], [facility] Address [address] [place] [address] Phone Care Team Providers Care Floor Scraper Name Role Phone Herber Hussein MD Primary Care Provider [phone] Reason for Visit * Reason Comments Med Refill Encounter Details Date Type Department Care Team (Late st Contact Info) Description 02/08/2024 Refill [facility] [employer] [address] [place] [address] Bee Chavarria MD [address] [place] [address] Social History Tobacco Use Types [...] (02/08/2024) Hemoglobin 8.9(L) 12.0 - 16.0 g/dL [facility] Hemoglobin x 3 26.7(L) 36.0 - 48.0 % [facility] 02/08/2024 02/09/2024 12: 25 PM FLATWORK FINISHER HAND Narrative [facility] - 02/09/2024 Unless otherwise specified, test(s) performed at: [facility], [address] [place], [place] [id number] SAWING AND ASSEMBLY SUPERVISOR: Michael Knox M.D. For any questions, please call customer service at FREQUENCY:OTHER Resulting Agency Comment Specimen source: Blood us Bee Chavarria MD LAB BLOOD ORDERABLES Final Re sult [facility] See order comments or contact performing lab Unknown, [place] documented in this encounter Visit Diagnoses Not on filedocumented in this encounter Care Teams Floor Scraper Relationship Specialty Start Date End Date Herber Hussein MD [address] [place] [address] PCP - General Family Medicine 07/14/18 documented as of this encounter
--- OUTSIDE RECORDS SUMMARY | 2024-11-26 10:36 | XMS_ITS | Encounter Summary ---
Author Organization [place] [facility] Address [address] [place] [address] Phone Care Team Providers Care Import/Export Agent Name Role Phone Herber Hussein MD Primary Care Provider [phone] Reason for Visit * Reason Comments Med Refill Encounter Details Date Type Department Care Team (Late st Contact Info) Description 05/06/2020 Refill [place] [facility] [address] [place] [address] Mohsen Mann MD [address] [place] [address] Social History Tobacco Use Types [...] on filedocumented in this encounter Care Teams Import/Export Agent Relationship Specialty Start Date End Date Herber Hussein MD [address] [place] [address] PCP - General Family Medicine 07/14/18 documented as of this encounter
--- OUTSIDE RECORDS SUMMARY | 2024-11-26 10:36 | XMS_ITS | Encounter Summary ---
Author Organization [place] [facility] [employer] Address [address] [place] [address] Phone Care Team Providers Care Mannequin Decorator Name Role Phone Herber Hussein MD Primary Care Provider [phone] Reason for Visit * Reason Comments Med Refill Encounter Details Date Type Department Care Team (Late st Contact Info) Description 05/30/2020 Refill [place] [facility] [address] [place] [address] Mohsen Mann MD [address] [place] [address] Social History Tobacco Use Types [...] on filedocumented in this encounter Care Teams Mannequin Decorator Relationship Specialty Start Date End Date Herber Hussein MD [address] [place] [address] PCP - General Family Medicine 07/14/18 documented as of this encounter
--- OUTSIDE RECORDS SUMMARY | 2024-11-26 10:36 | XMS_ITS | Encounter Summary ---
Author Organization [place] [facility] [employer] Address [address] [place] [address] Phone Care Team Providers Care Repair Service Clerk Name Role Phone Herber Hussein MD Primary Care Provider [phone] Reason for Visit * Reason Comments Med Refill Encounter Details Date Type Department Care Team (Late st Contact Info) Description 10/29/2020 Refill [place] [facility] [address] [place] [address] Mohsen Mann MD [address] [place] [address] Social History Tobacco Use Types [...] on filedocumented in this encounter Care Teams Repair Service Clerk Relationship Specialty Start Date End Date Herber Hussein MD [address] [place] [address] PCP - General Family Medicine 07/14/18 documented as of this encounter
--- OUTSIDE RECORDS SUMMARY | 2024-11-26 10:36 | XMS_ITS | Encounter Summary ---
Author Organization [place] [facility] Address [address] [place] [address] Phone Care Team Providers Care Pega Developer Name Role Phone Herber Hussein MD Primary Care Provider [phone] Reason for Visit * Reason Comments Med Refill Encounter Details Date Type Department Care Team (Late st Contact Info) Description 11/23/2021 Refill [place] [facility] [address] [place] [address] Mohsen Mann MD [address] [place] [address] Social History Tobacco Use Types [...] on filedocumented in this encounter Care Teams Pega Developer Relationship Specialty Start Date End Date Herber Hussein MD [address] [place] [address] PCP - General Family Medicine 07/14/18 documented as of this encounter
--- OUTSIDE RECORDS SUMMARY | 2024-11-26 10:36 | XMS_ITS | Encounter Summary ---
Author Organization [place] [facility] [employer], [facility] Address [address] [place] [address] Phone Care Team Providers Care Bat Lathe Operator Name Role Phone Herber Hussein MD Primary Care Provider [phone] Encounter Details Date Type Department Care Team (Late st Contact Info) Description 11/26/2024 Treatment [facility] [employer] [address] [place] [address] Fabiana Butts NP [address] [place] [address] Heart failure; End stage renal disease; Dependence [...] encounter Miscellaneous Notes * Dialysis Note - Fabiana Butts NP - 11/26/2024 12:00 AM CDT Patient: Bharati Serna Raj : 1975 Note Type: Dialysis Rounds-Comp Service Date: 11/26/2024 This patient was personally seen [id number] for a complete visit as part of routine monthly dialysis care for end stage renal disease. Attending Ict Project Manager: RODDY HENDERSON MD Dialysis Location: [facility] Schedule: Shift: 1 OVERVIEW Patient is stable. Patient has no complaints. COMMENTS: Vss, seen on hd machine. Denies concerns for me today HOME MEDICATIONS Current [facility] Outpatient Medications acetaminophen 500 mg tablet Take 1 tablet by mouth four times a day. [PRN for Pain] alprazolam 0.25 mg tablet Take 1 tablet by mouth twice a day as needed. amlodipine 10 mg tablet Take 1 tablet by mouth once a day. carvedilol 25 mg tablet Take 1 tablet by mouth twice a day. diphenhydramine HCl 25 mg tablet Take 1 tablet by mouth every six hours as needed. [for allergies] diphenoxylate-atropine 2.5-0.025 mg tablet Take 1 tablet by mouth four times a day as needed. [Lomotil] Eliquis 2.5 mg tablet Take 1 tablet by mouth twice a day. folic acid 1 mg tablet Take 1 tablet by mouth once a day. hydralazine 25 mg tablet Take 1 tablet by mouth three times a day. melatonin 10 mg tablet Take 2 tablet by mouth every night as needed. metoclopramide HCl 5 mg tablet Take 1 tablet by mouth three times a day. [30 minutes prior to meals] promethazine 25 mg tablet Take 1 tablet by mouth every four hours as needed. Protonix 40 mg tablet,delayed release (DR/EC) Take 1 tablet by mouth twice a day as directed. [before breakfast. Do not crush, chew, or split.] RenaPlex-D 800 mcg-12.5 mg-2,000 unit tablet Take 1 tablet by mouth once a day as directed. [2,000 IU Vitamin D2. 4,000 total] ropinirole 0.25 mg tablet Take 1 tablet by mouth at bedtime. [for severe restless legs. Take every night if RLS bothersome] scopolamine base 1 mg over 3 days patch 3 day Apply 1 patch to skin every 72 hours. [For 30 days for nausea and vomiting] Sevelamer Carbonate Tablet 800 mg tablet Take 2 Tablet By Mouth Three times a day With Meals. sodium bicarbonate 650 mg tablet Take 1 tablet by mouth three times a day as needed. [For dialysis] thiamine HCl (vitamin B1) 100 mg capsule Take 1 capsule by mouth once a day. Ventolin HFA 90 mcg/actuation HFA aerosol inhaler Inhale 2 puff as directed every six hours as needed. [as needed for shortness of breath] Current [facility] Allergies Allergen: Reaction: Skin Rash Severity: Moderate Allergen: cephalexin Reaction: Skin Rash Allergen: Cephalosporins Reaction: Skin Rash Severity: Mild Allergen: latex Reaction: Skin Rash DIALYSIS PRESCRIPTION Treatment Data Treatment Date: 11/26/2024 started at: 6:25 AM Dialysate / Machine Temp (prescribed): 37.0*C Dialysate / Machine Temp (actual): 37.2*C BFR (prescribed): 450 BFR (actual): 450 DFR (prescribed): Autoflow 2.0 DFR (actual): 800 Prescribed Time: 02:45 EDW (kg): 71.0 Dialyzer: 180NRe Optiflux Dialysate: 3.0 K, 2.5 Ca, 1.0 Mg, 100 Dextrose (G3251) Sodium: 137 Bicarb: 40 Pre Dialysis Vitals Pre BP Sit: 170/79 Pre Wt (kg): 72.6 EDW Deviation (kg): 1.6 Temp: 97.8*F Current Dialysis Vitals BP Sit: 165/84 AP/LIVESTOCK FEEDER: -- Pulse: 97 TREATMENT MEDICATIONS ORDERS Epoetin Mata (Epogen) 4200 units IVP 3X Week During Dialysis 11/19/2024 - 11/18/2025 Iron Sucrose (Venofer) 50 mg IVP 1X Week 05/28/2024 - 05/27/2025 Vitamin D (Calcitriol) Oral 1.0 mcg ORAL Every Treatment 08/29/2024 - 08/28/2025 BP AND FLUID ASSESSMENT Acceptable blood pressure. Fluid status acceptable. Post BP Sit 132/63 - 11/23/2024 123/55 - 11/21/2024 141/67 - 11/19/2024 Post Wt (kg) 70.2 - 11/23/2024 71.1 - 11/21/2024 73.0 - 11/19/2024 EDW (kg) 71.0 - 11/23/2024 71.0 - 11/21/2024 71.0 - 11/19/2024 Deviation (kg) -0.8 - 11/23/2024 0.1 - 11/21/2024 2.0 - 11/19/2024 ADEQUACY ASSESSMENT spKt/V (Daugirdas II) 1.50 (11/21/24) 1.42 (10/24/24) 1.64 (09/26/24) eKdrt/V 1.21 (11/21/24) 1.13 (10/24/24) 1.30 (09/26/24) % Urea Reduction 74 (11/21/24) 74 (10/24/24) 80 (09/26/24) BUN 42 (11/21/24) 31 (10/24/24) 59 (09/26/24) BUN Post Dialysis 11 (11/21/24) 8 (10/24/24) 12 (09/26/24) Creatinine 5.27 (11/21/24) 5.51 (10/24/24) 4.97 (09/19/24) Bicarbonate (CO2) 22 (11/21/24) 27 (10/24/24) 23 (09/19/24) Sodium 140 (11/21/24) 139 (10/24/24) 138 (09/19/24) Target met. Prescription compliance acceptable. Missed Treatments 2 - Last 30 days 6 - Last 60 days Most recently missed on 10/31/2024 ACCESS ASSESSMENT Vascular access examined. AVF/AVG positive thrill/bruit. Current access is permanent and functioning well. AVFistula Transposed Right Thigh Active (In Use) - 10/27/2020 Placed - 08/19/2020 Access Flow ? 1999 (08/29/24) ? 1999 (08/10/24) ? 1999 (08/08/24) ANEMIA ASSESSMENT Hemoglobin 8.0 (11/21/24) 8.0 (11/14/24) 9.4 (11/07/24) Iron Saturation (TSat) 41 (11/21/24) 61 (10/24/24) 23 (09/19/24) Ferritin 1,058 (11/21/24) 1,622 (08/24/24) 1,808 (08/15/24) Iron 89 (11/21/24) 129 (10/24/24) 52 (09/19/24) TIBC 219 (11/21/24) 210 (10/24/24) 223 (09/19/24) MCV 102 (11/21/24) 103 (10/24/24) 104 (09/19/24) Folate 21.5 (05/23/24) Platelets 183 (11/21/24) 192 (10/24/24) 170 (09/19/24) Anemia targets not met. Hemoglobin not at target. DORINDA adjusted per protocol. BMM ASSESSMENT Calcium 8.6 11/21/24 9.7 10/24/24 8.9 09/19/24 Corrected Calcium 8.9 11/21/24 9.5 10/24/24 8.8 09/19/24 Phosphorus 5.3 11/21/24 5.9 10/24/24 5.4 09/19/24 Calcium Phosphorus Product 46 11/21/24 57 10/24/24 48 09/19/24 PTH 256 11/21/24 446 08/24/24 534 05/23/24 Vitamin D, 25-OH, Total 32.4 05/23/24 Magnesium 1.8 11/21/24 1.8 08/24/24 2.0 05/23/24 Alkaline Phosphatase 73 11/21/24 73 08/24/24 79 05/23/24 Aluminum ?5 11/21/24 ?5 05/23/24 PTH within target. Phosphorus controlled. Calcium controlled. Bone and mineral metabolism parameters reviewed. NUTRITION ASSESSMENT Albumin 3.6 11/21/24 4.3 10/24/24 4.1 09/19/24 Potassium 4.4 11/21/24 3.8 10/24/24 3.8 09/19/24 eNPCR 0.70 11/21/24 0.53 10/24/24 0.91 09/26/24 Hemoglobin A1C 6.1 02/22/24 Albumin not at goal. Referred to shelf drier operator for further counseling. PHYSICAL EXAM Exam not performed. VISIT DIAGNOSES I50.9 Heart failure (HCC) COMMENTS: Compensated. Continue to monitor ADDITIONAL LABS WBC 5.03 (11/21/24) 6.78 (10/24/24) 7.02 (09/19/24) Hepatitis B Surface Ab ?1,000 (05/23/24) Signed by: FABIANA BUTTS NP on 11/26/2024 at 07:37:17 AM Transcribed by: FABIANA BUTTS NP on 11/26/2024 at 07:37:17 AM documented in this encounter Plan of Treatment Not on file documented as of this encounter Visit Diagnoses Diagnosis Heart failure End stage renal disease Dependence on renal dialysis documented in this encounter Care Teams Bat Lathe Operator Relationship Specialty Start Date End Date Herber Hussein MD [address] [place] [address] PCP - General Family Medicine 07/14/18 documented as of this encounter
--- OUTSIDE RECORDS SUMMARY | 2024-11-26 10:37 | XMS_ITS | Encounter Summary ---
Author Organization [facility] Address [address] [place] [address] Phone Care Team Providers Care Health Practice Manager Name Role Phone Herber Hussein MD Primary Care Provider [phone] Encounter Details Date Type Department Care Team (Late st Contact Info) Description 08/24/2018 Orders Only [facility] [address] [place] [address] Mohsen Mann MD [address] [facility] [address] [place] [address] Chronic kidney disease stage 4 [...] (HCC) documented in this encounter Care Teams Health Practice Manager Relationship Specialty Start Date End Date Herber Hussein MD [address] [place] [address] PCP - General Family Medicine 07/14/18 documented as of this encounter
--- OUTSIDE RECORDS SUMMARY | 2024-11-26 10:37 | XMS_ITS | Encounter Summary ---
Author Organization [facility] Address [address] [facility] [address] [place] [address] Phone Care Team Providers Care Chamber Worker Name Role Phone Herber Hussein MD Primary Care Provider [phone] Encounter Details Date Type Department Care Team (Late st Contact Info) Description 12/11/2018 Orders Only [facility] [address] [place] [address] Tl Lawson, [place] Chronic kidney [...] HEPATITIS C ANTIBODY Routine 04/30/2019 10:54 AM [facility] HEPATITIS A ANTIBODY, IGM Routine 04/30/2019 10:54 AM [facility] HEPATITIS B CORE ANTIBODY, IGM Routine 04/30/2019 10:54 AM [facility] HEPATITIS B SURFACE ANTIGEN Routine 04/30/2019 10:54 AM [facility] RENAL FUNCTION PANEL Routine 04/30/2019 10:54 AM [facility] PROTEIN / CREATININE RATIO, URINE Routine 04/11/2019 1:09 PM [facility] CBC AND DIFFERENTIAL Routine 04/11/2019 1:09 PM [facility] RENAL FUNCTION PANEL Routine 04/11/2019 1:09 PM [facility] PROTEIN / CREATININE RATIO, URINE Routine 12/06/2018 [...] (ABNORMAL) Renal Function Panel (04/30/2019 10:54 AM [facility]) Glucose 268(H) 65 - 99 mg/dL [facility] [...] 5.1 g/dL [facility] 04/30/2019 10:5 4 AM [facility] 04/30/2019 10:55 AM [facility] Narrative Resulting Agency Comment Performing Organization Information: Site ID: [place] Name: [facility] Address: [address] [address] Director: Jadiel Winslow D.O., MPH Mohsen Mann MD LAB BLOOD ORDERABLES Fi nal Result [facility] * Hepatitis C antibody (04/30/2019 10:54 AM [facility]) Hepatitis C Antibody NON-REACTI VE NON-REACT JUICE [facility] Signal/Cutoff 0.08 <1.00 [facility] Comment: HCV antibody was non-reactive. There is no laboratory evidence of HCV infection. In most cases, no further action is required. However, if recent HCV exposure is suspected, a test for HCV RNA (test code 05822) is suggested. For additional information please refer to http://education.Inmoo/faq/ZCO04s0 (This link is being provided for informational/ educational purposes only.) 04/30/2019 10:5 4 AM [facility] 04/30/2019 10:55 AM [facility] Narrative Resulting Agency Comment Performing Organization Information: Site ID: [place] Name: [facility] Address: [address] [place] [id number] Director: Jadiel Winslow D.O., MPH Mohsen Mann MD LAB BLOOD ORDERABLES Fi nal Result Performing Organization Address [facility] de Phone Number [facility] * Hepatitis B core antibody, IgM (04/30/2019 10:54 AM [facility]) Hep B Core IgM NON-REACTI VE NON-REACTI VE [facility] 04/30/2019 10:5 4 AM [facility] 04/30/2019 10:55 AM [facility] Narrative Resulting Agency Comment Performing Organization Information: Site ID: R[place] Name: [facility] Address: [address] [place] [phone] Director: Jadiel Winslow D.O., MPH Mohsen Mann MD LAB BLOOD ORDERABLES Fi nal Result Performing Organization Address [facility] Phone Number [facility] * Hepatitis B Surface Antigen (04/30/2019 10:54 AM [facility]) Hep B Surface Antigen NON-REACTIVE NON-REACT JUICE [facility] Confirmation CANCELED [facility] Comment:Result canceled by kavon lacy. 04/30/2019 10:5 4 AM [facility] 04/30/2019 10:55 AM [facility] Narrative Resulting Agency Comment Performing Organization Information: Site ID: RIK Name: [facility] Address: [address] [place] [phone] Director: Jadiel Winslow D.O., MPH Mohsen Mann MD LAB BLOOD ORDERABLES Fi nal Result Performing Organization Address [facility] de Phone Number [facility] * Hepatitis A antibody, IgM (04/30/2019 10:54 AM [facility]) Hep A IgM NON-REACTI VE NON-REACTI VE [facility] Comment: For additional information, please refer to http://education.Amirite.com.Materia/faq/BKI308 (This link is being provided for informational/ educational purposes only.) 04/30/2019 10:5 4 AM [facility] 04/30/2019 10:55 AM [facility] Narrative Resulting Agency Comment Performing Organization Information: Site ID: RIK Name: [facility] Address: [address] [place] [phone] Director: Jadiel Winslow D.O. MPH Mohsen Mann MD LAB BLOOD ORDERABLES Fi nal Result Performing Organization Address [facility] de Phone Number [facility] * (ABNORMAL) Protein, Total, Random Urine w/Creatinine (Protein/Creat Ratio) (04/11/2019 1:09 PM [facility]) Creatinine, Ur 58 20 - 275 mg/dL [facility] Urine Protein/Creati nine Ratio 3,397(H) 21 - 161 mg/g creat [facility] Protein/Creati nine Ratio, Urine 3.397(H) 0.021 - 0.161 mg/mg creat [facility] Protein Urine Random 197(H) 5 - 24 mg/dL [facility] 04/11/2019 1:09 PM [facility] 04/11/2019 1:10 PM [facility] Narrative Resulting Agency Comment Performing Organization Information: Site ID: R[place] Name: [facility] Address: [address] [place] [phone] Director: Jadiel Winslow D.O. MPH Yuliana Maradiaga NP LAB URINE ORDERABLES Final Resul t Performing Organization Address [facility] de Phone Number [facility] * (ABNORMAL) CBC and Differential (04/11/2019 1:09 PM [facility]) WBC 9.3 3.8 - 10.8 Thousand/ uL [...] by t he ancillary. 04/11/2019 1:09 PM [facility] 04/11/2019 1:10 PM [facility] Narrative Resulting Agency Comment Performing Organization Information: Site ID: [place] Name: [facility] Address: [address] [place] [address] Director: Jadiel Winslow D.O., MPH Yuliana Maradiaga GUEST EXPERIENCE SPECIALIST LAB BLOOD ORDERABLES Final Resul t Performing Organization Address City/[facility]/ZIP Co de Phone Number [facility] * (ABNORMAL) Renal Function Panel (04/11/2019 1:09 PM [facility]) Glucose 228(H) 65 - 99 mg/dL [facility] [...] - 5.1 g/dL [facility] 04/11/2019 1:09 PM [facility] 04/11/2019 1:10 PM [facility] Narrative Resulting Agency Comment Performing Organization Information: Site ID: [place] Name: [facility] Address: [facility] [place] [address] Director: Jadiel Winslow D.O., MPH us Yuliana Maradiaga NP LAB BLOOD ORDERABLES Final Resul t Performing Organization Address City/[facility]/ZIP Co de Phone Number [facility] [...] D, (D2,D3), LC/MS/MS is recommended: order code [id number] (patients >2yrs). For more information on this test, go to: http://education.Inmoo/faq/QLR175 (This link is being provided for informational/educational purposes only.) 12/06/2018 8:34 AM CDT 12/06/2018 8:35 AM CDT Narrative Resulting Agency Comment Performing Organization Information: Site ID: R[place] Name: [facility] Address: [address] [place] [phone] Director: Jadiel Winslow D.O., MPH Tl Lawson [...] Performing Organization Information: Site ID: [place] Name: [facility] Address: [address] [place] [phone] Director: Jadiel Winslow D.O., MPH Tl L Renny GUEST EXPERIENCE SPECIALIST LAB BLOOD ORDERABLES Final Result Performing Organization Address [facility] Co de Phone Number [facility] STL [facility] [...] Performing Organization Information: Site ID: RIK Name: [employer] Address: [address] [facility] [place] [address] Director: Jadiel Winslow D.O., MPH Tl Lawson GUEST EXPERIENCE SPECIALIST LAB URINE ORDERABLES Final Result Performing Organization Address [facility] de Phone Number [facility] STL [facility] [...] Performing Organization Information: Site ID: [place] Name: [employer] Address: [address] [facility] [place] [address] Director: Jadiel Winslow D.O. MPH Tl Lawson GUEST EXPERIENCE SPECIALIST LAB BLOOD ORDERABLES Final Result Performing Organization Address City/[facility]/ZIP Co de Phone Number CYNDIE STJuan QUEST [...] Performing Organization Information: Site ID: [place] Name: [facility] Address: [address] [address] Director: Jadiel Winslow D.O., MPH Tl Lawson GUEST EXPERIENCE SPECIALIST LAB BLOOD ORDERABLES Final Result Performing Organization Address City/[facility]/ZIP Co de Phone Number CYNDIE STJuan [facility] documented in this encounter Visit Diagnoses Diagnosis Chronic kidney disease stage 4 (HCC) documented in this encounter Care Teams Chamber Worker Relationship Specialty Start Date End Date Herber Hussein MD [address] [place] [address] PCP - General Family Medicine 07/14/18 documented as of this encounter
--- OUTSIDE RECORDS SUMMARY | 2024-11-26 10:37 | XMS_ITS | Encounter Summary ---
Author Organization [facility] Address [address] [place] [address] Phone Care Team Providers Care School Photograph Editor Name Role Phone Herber Hussein MD Primary Care Provider [phone] Encounter Details Date Type Department Care Team (Late st Contact Info) Description 11/08/2018 Orders Only [facility] [address] [place] [address] Sherry Lau MA [address] [place] [address] Chronic kidney disease stage 4 [...] Performing Organization Information: Site ID: [place] Name: [facility] Address: [address] [facility] [place] [address] Director: Jadiel Winslow D.O., MPH us Mohsen [...] Performing Organization Information: Site ID: [place] Name: [facility] Address: [address] [place] [phone] Director: Jadiel Winslow D.O., MPH Mohsen Mann [...] Performing Organization Information: Site ID: [place] Name: [facility] Address: [address] [address] Director: Jadiel Winslow D.O., MPH us Mohsen Mann MD LAB BLOOD ORDERABLES Fi nal Result CYNDIE STJuan AGEE documented in this encounter Visit Diagnoses Diagnosis Chronic kidney disease stage 4 (HCC) Essential hypertension documented in this encounter Care Teams School Photograph Editor Relationship Specialty Start Date End Date Herber Hussein MD [address] [place] [address] PCP - General Family Medicine 07/14/18 documented as of this encounter
--- OUTSIDE RECORDS SUMMARY | 2024-11-26 10:37 | XMS_ITS | Encounter Summary ---
Author Organization [facility] Address [address] [facility] [address] [place] [address] Phone Care Team Providers Care Barley Steeper Name Role Phone Herber Hussein MD Primary Care Provider [phone] Encounter Details Date Type Department Care Team (Late st Contact Info) Description 09/29/2018 Orders Only [facility] [address] [place] [address] Tl Lawson NP Chronic kidney [...] (HCC) documented in this encounter Care Teams Barley Steeper Relationship Specialty Start Date End Date Herber Hussein MD [address] [place] [address] PCP - General Family Medicine 07/14/18 documented as of this encounter
--- OUTSIDE RECORDS SUMMARY | 2024-11-26 10:37 | XMS_ITS | Encounter Summary ---
Author Organization [facility] Address [address] [facility] [address] [place] [address] Phone Care Team Providers Care Truck Driver Heavy Name Role Phone Herber Hussein MD Primary Care Provider [phone] Encounter Details Date Type Department Care Team (Late st Contact Info) Description 08/25/2018 Orders Only [facility] [address] [place] [address] Tl Lawson NP Chronic kidney [...] (HCC) documented in this encounter Care Teams Truck Driver Heavy Relationship Specialty Start Date End Date Herber Hussein MD [address] [place] [address] PCP - General Family Medicine 07/14/18 documented as of this encounter
[2024-11-26 10:41] LABS: ABG PCO2 39.3 mmHg (35-45); Alveolar-Arterial Oxygen Gradi 5.4 mmHg (5-10); Arterial Blood Gas Hematocrit 24.5 % (37-47); Blood Gas Allen Test Pos; Blood Gas Operator Identificat MONRO; Blood Gas Sample Site Brachial, left; Blood Gas Sample Type Arterial; Carboxyhemoglobin 1.7 %THgb (0.4-20.1); Glucose Level-ABG 103.0 mg/dL (70-115); HCO3 ABG 35.9 mmol/L (22-26); Ionized Calcium Level - ABG 1.1 mmol/L (1.1-1.4); Methemoglobin 0.4 % (0.4-1.5); Oxygen Saturation ABG 94.8; PO2 ABG 61.1 mmHg (80.0-100.0); PO2 FiO2 Ratio Arterial Blood 290; Potassium Level - ABG 3.3 mmol/L (3.5-5.0); Sodium Level - ABG 140.0 mmol/L (131-143)
[2024-11-26 10:53] LABS: ABG PH Result 7.57 (7.35-7.45)
--- NOTE | 2024-11-26 10:54 | W.ED.AMS ---
HPI - Altered Mental Status General: Chief Complaint: Altered Mental Status Stated Complaint: ams History of Present Illness: 49-year-old female with known history of end-stage renal disease presents to the emergency room after altered mental status after her dialysis run this morning. They took a liter and a half off she was going to leave she got confused and disoriented walked the wrong way. EMS was called and she was brought to the emergency room she denies any chest pain or abdominal pain. She is awake and alert at this time she is able to give a fairly good history. She has no focal neurologic deficits or weaknesses. Denies any recent fever sweats or chills. She has been having trouble diabetic gastroparesis recently but it has been better the last week. Related Data Home Medications ?Medication ?Instructions ?Recorded ?Confirmed acetaminophen 325 mg capsule 650 mg PO QID PRN Pain 06/19/19 10/15/24 pantoprazole 40 mg tablet,delayed 40 mg PO BID 06/19/19 10/15/24 release sodium bicarbonate 650 mg tablet 650 mg PO DAILY PRN Dialysis 09/18/19 10/15/24 diphenhydramine HCl 25 mg capsule 25 mg PO TID PRN Itching 04/01/20 10/15/24 (Benadryl) melatonin 10 mg capsule 10 mg PO BEDTIME 01/21/23 10/15/24 ropinirole 0.25 mg tablet 0.25 mg PO BEDTIME 01/21/23 10/15/24 vit B,C-folic ac 800 mcg-zinc 12.5 1 tab PO DAILY 01/21/23 10/15/24 mg-selen-D3 2,000 unit-vit E tablet (RenaPlex-D) amlodipine 10 mg tablet 10 mg PO DAILY 03/22/24 10/15/24 citalopram 20 mg tablet 20 mg PO DAILY 03/22/24 10/15/24 semaglutide 1 mg/dose (4 mg/3 mL) 1 mg SUBCUT Q7D 10/15/24 10/15/24 subcutaneous pen injector (Ozempic) Held on 10/17/24. Instructions: see pcp Previous Rx's ?Medication ?Instructions ?Recorded albuterol sulfate 90 mcg/actuation 2 inh inhalation QID shortness of 09/04/24 aerosol inhaler breath #8.5 grams ondansetron 4 mg disintegrating 4 mg PO Q6H PRN nausea and 09/26/24 tablet vomiting #14 tabs alprazolam 0.25 mg tablet (Xanax) 0.25 mg PO BID PRN Anxiety and 10/17/24 nausea #10 tabs folic acid 1 mg tablet 1,000 mcg PO DAILY #30 tabs 10/17/24 thiamine mononitrate (vit B1) 100 100 mg PO DAILY #30 tabs 10/17/24 mg tablet (Vitamin B-1 (mononitrate)) ondansetron 4 mg disintegrating 4 mg PO Q6H PRN nausea and 10/22/24 tablet vomiting #14 tabs azithromycin 250 mg tablet See Rx Instructions PO .COMPLEX #6 11/17/24 tabs Allergies Allergy/AdvReac Type Severity Reaction Status Date / Time sulfamethoxazole (From Allergy Severe ALGY-Rash Verified 09/18/24 10:58 Sulfamethoxazole-Trimethoprim) trimethoprim (From Allergy Severe ALGY-Rash Verified 09/18/24 10:58 Sulfamethoxazole-Trimethoprim) adhesive tape Allergy Unknown blisters Verified 09/18/24 10:58 Cephalosporins Allergy Unknown unknown Verified 09/18/24 10:58 doxycycline Allergy ADR-Vomitin Verified 09/18/24 10:58 g latex Allergy blisters Verified 09/18/24 10:58 Sulfa (Sulfonamide Allergy Unknown Verified 10/16/24 07:58 Antibiotics) Review of Systems Const: Denies: fever(s) or chills Card: Denies: chest pain Resp: Denies: dyspnea GI: Denies: abdominal pain : Denies: dysuria, urinary frequency or urinary urgency Musc: Denies: neck pain or back pain Skin/Breast: Denies: rash PFSH ED PFSH: Medical History Tachycardia Diabetes Deep vein thrombosis (DVT) during Chronic anticoagulation Squamous cell carcinoma of anal canal Diabetes mellitus End-stage renal disease Surgical History Status post surgery (05/19/20) Removal of peritoneal dialysis catheter Port-A-Cath in place S/P hemodialysis catheter insertion (01/09/20) Removed 11/18/2020 Peritoneal dialysis status H/O colonoscopy H/O hand surgery History of hip surgery History of hysterectomy Family History Other Cancer Diabetes Denies family history of Anesthesia complication Bleeding disorder Social History Smoking and tobacco/nicotine status: current every day tobacco/nicotine user Alcohol intake: never Substance/Drug Use: never Household members: family Marital status: Single Current occupational status: disabled Physical Exam Const: COMMON NORMALS: no acute distress GENERAL APPEARANCE: cooperative and comfortable ORIENTATION/CONSCIOUSNESS: Yes awake HENMT: COMMON NORMALS: normocephalic, atraumatic and hearing grossly normal bilaterally HEAD & SCALP: normocephalic and atraumatic Resp: COMMON NORMALS: normal respiratory effort, No retractions, No use of accessory muscles and clear to auscultation bilaterally AUSCULTATION: clear to auscultation bilaterally Cardio: COMMON NORMALS: regular rate, regular rhythm and No murmurs present (Cardio) RATE: regular rate RHYTHM: regular rhythm GI: COMMON NORMALS: Soft to palpation and No hepatosplenomegaly present AUSCULTATION: Yes normoactive bowel sounds PALPATION: Yes Soft to palpation, No Tenderness to palpation present (GI), No Guarding due to palpation present (GI) and Yes No hepatosplenomegaly present Extremity: COMMON NORMALS: normal to inspection, capillary refill normal, no clubbing, cyanosis or edema, no calf tenderness and no pedal edema Skin: COMMON NORMALS: no rashes or lesions noted GENERAL SKIN EXAM: no rashes or lesions noted Course Vital Signs: Vital signs: Vital Signs Temperature 98.7 F 11/26/24 10:23 Pulse Rate 100 11/26/24 10:23 Respiratory Rate 16 11/26/24 10:23 Blood Pressure 150/65 11/26/24 13:30 Pulse Oximetry 90 11/26/24 13:30 Oxygen Delivery Me thod Room Air 11/26/24 10:23 MDM - Altered Mental Status Medical Decision Making Altered mental status. Patient did require some redirection at times. Initially I seen her she able to give a good history. Then she became more confused she has improved again now. She had a similar episode about 6 weeks ago in which a police peyton was involved before it was realized it was medical issue. She was admitted and ultimately was found to be a fugue state. No significant findings at this time will place her in observation discussed with hospitalist orders written Medical Records I reviewed the patient's medical records. Lab Data I reviewed the patient's lab results. 11/26/24 12:03 11/26/24 12:03 Radiology Impressions Chest X-Ray 11/26/24 10:22 Impression: Hyperinflation. Head CT 11/26/24 10:22 IMPRESSION: 1. No evidence of intracranial hemorrhage or mass effect. 2. No acute intracranial findings. Laboratory Results WBC 5.84 10^3/uL (3.29-11.43) 11/26/24 12:03 RBC 2.17 10^6/uL (3.85-5.65) L 11/26/24 12:03 Hgb 7.40 g/dL (11.27-16.99) L 11/26/24 12:03 Hct 22.7 % (36-47) L 11/26/24 12:03 MCV 104.6 fl (85-98) H 11/26/24 12:03 MCH 34.1 pg (27-33) H 11/26/24 12:03 MCHC 32.6 g/dL (30-55) 11/26/24 12:03 RDW 16.2 % (12.1-15.1) H 11/26/24 12:03 Plt Count 167 10^3/cmm (157-399) 11/26/24 12:03 MPV 8.9 fL (7.4-10.4) 11/26/24 12:03 Neut % (Auto) 68.4 % 11/26/24 12:03 Lymph % (Auto) 20.2 % 11/26/24 12:03 [place] % (Auto) 7.5 % 11/26/24 12:03 Eos % (Auto) 2.9 % 11/26/24 12:03 Baso % (Auto) 0.7 % 11/26/24 12:03 Neut # (Auto) 3.99 10^3/uL (1.8-7.7) 11/26/24 12:03 Lymph # (Auto) 1.2 10^3/uL (0.8-4.8) 11/26/24 12:03 [place] # (Auto) 0.4 10^3/uL (0.2-0.9) 11/26/24 12:03 Eos # (Auto) 0.2 10^3/uL (0.0-0.8) 11/26/24 12:03 Baso # (Auto) 0.0 10^3/uL (0.0-0.1) 11/26/24 12:03 Nucleated RBC % (auto) 0 % 11/26/24 12:03 Nucleated RBCs # 0.0 /100WBC 11/26/24 12:03 Specimen Type Arterial 11/26/24 13:11 Sample Site Radial, left 11/26/24 13:11 ABG pH 7.55 (7.35-7.45) H 11/26/24 13:11 ABG pCO2 39.7 mmHg (35-45) 11/26/24 13:11 ABG pO2 66.1 mmHg (80.0-100.0) L 11/26/24 13:11 ABG PO2/FiO2 Ratio 314 11/26/24 13:11 ABG HCO3 34.6 mmol/L (22-26) H 11/26/24 13:11 ABG O2 Saturation 95.1 11/26/24 13:11 ABG Base Excess 11.3 mmol/L (-2.0-2.0) H 11/26/24 13:11 Benjamin Test Pos 11/26/24 13:11 A-a O2 Gradient 4.6 mmHg (5-10) L 11/26/24 13:11 Hematocrit 24.3 % (37-47) L 11/26/24 13:11 Hgb O2 Saturation 93.1 % (95-100) L 11/26/24 13:11 Carboxyhemoglobin 1.7 %THgb (0.4-20.1) 11/26/24 13:11 Methemoglobin 0.4 % (0.4-1.5) 11/26/24 13:11 Total Hemoglobin 7.9 g/dL (12-16) L 11/26/24 13:11 Sodium 141.0 mmol/L (131-143) 11/26/24 13:11 Potassium 3.3 mmol/L (3.5-5.0) L 11/26/24 13:11 Glucose 119.0 mg/dL (70-115) H 11/26/24 13:11 Ionized Calcium 1.1 mmol/L (1.1-1.4) 11/26/24 13:11 O2 Delivery Device Room air 11/26/24 13:11 FiO2 21.0 % 11/26/24 13:11 Oracle Bpm Consultant ID Linh 11/26/24 13:11 Sodium 142 mmol/L (136-145) 11/26/24 12:03 Potassium 3.4 mmol/L (3.5-5.1) L 11/26/24 12:03 Chloride 99 mmol/L (98-107) 11/26/24 12:03 Carbon Dioxide 33 mmol/L (22-29) H 11/26/24 12:03 Anion Gap 13.4 (5-19) 11/26/24 12:03 BUN 16 mg/dL (6-20) 11/26/24 12:03 Creatinine 2.5 mg/dL (0.5-0.9) H 11/26/24 12:03 GFR Calculation 20.4 mL/min (90-130) L 11/26/24 12:03 Glucose 101 mg/dL (65-115) 11/26/24 12:03 Calculated Osmolality 295 mOsm/kg (285-295) 11/26/24 12:03 Calcium 8.6 mg/dL (8.5-10.5) 11/26/24 12:03 Magnesium 1.7 mg/dL (1.7-2.3) 11/26/24 12:03 Total Bilirubin 0.6 mg/dL (0.15-1.2) 11/26/24 12:03 AST 21 U/L (0-32) 11/26/24 12:03 ALT 20 U/L (0-33) 11/26/24 12:03 Alkaline Phosphatase 79 U/L (35-105) 11/26/24 12:03 Troponin T Baseline 55 ng/L (0-10) H 11/26/24 12:03 Total Protein 5.7 g/dL (6.6-8.7) L 11/26/24 12:03 Albumin 3.9 g/dL (3.5-5.2) 11/26/24 12:03 Globulin 1.8 g/dL (1.3-4.6) 11/26/24 12:03 All radiology interpretation(s) finalized by discharge Discharge Plan Discharge Patient Disposition: Placed in Observation Admit Provider: Brian Philippe Clinical Impression: Encephalopathy, Diabetes mellitus, ESRD (end stage renal disease) on dialysis Coding Level of Care Code ED Repairer Kiln Car for Chuy Fitch
--- NOTE | 2024-11-26 12:05 | ECG_ITS ---
[employer] Test Date: 2024-11-26 Pat Name: Bharati Anthony Department: Room: Gender: Female Bleaching Supervisor: : 1975 Requested By: Rafat Martinez Order Number: [id number] Dung MD: Janusz Schaefer M.D. Measurements Intervals [place] Rate: 100 P: 68 MT: 116 QRS: 21 QRSD: 111 T: 70 QT: 410 QTc: 530 Interpretive Statements SINUS TACHYCARDIA WITH SHORT MT INTERVAL INTRAVENTRICULAR CONDUCTION DELAY [110+ ms QRS DURATION] NONSPECIFIC ST & T-WAVE ABNORMALITY ABNORMAL RHYTHM ECG Compared to ECG 11/26/2024 10:22:17 No significant change Electronically Signed On 11-28-2024 22:54:08 CDT by Janusz Schaefer M.D. [id number] [id number]
[2024-11-26 12:09] LABS: Hematocrit 22.7 % (36-47); Hemoglobin 7.40 g/dL (11.27-16.99); Mean Corpuscular HGB Conc 32.6 g/dL (30-55); Mean Corpuscular Hemoglobin 34.1 pg (27-33); Mean Corpuscular Volume 104.6 fl (85-98); Nucleated Red Blood Cells % 0 %; Platelet Count 167 10^3/cmm (157-399); Red Blood Count 2.17 10^6/uL (3.85-5.65); White Blood Count 5.84 10^3/uL (3.29-11.43)
[2024-11-26 12:27] LABS: Troponin(5th) Baseline 55 ng/L (0-10)
[2024-11-26 12:36] LABS: Alanine Aminotransferase 20 U/L (0-33); Albumin Level 3.9 g/dL (3.5-5.2); Alkaline Phosphatase 79 U/L (35-105); Anion Gap 13.4 (5-19); Aspartate Amino Transferase 21 U/L (0-32); Blood Urea Nitrogen 16 mg/dL (6-20); Calcium 8.6 mg/dL (8.5-10.5); Carbon Dioxide 33 mmol/L (22-29); Chloride 99 mmol/L (98-107); Creatinine Clr Calc Pharmacy 29.1210; Globulin 1.8 g/dL (1.3-4.6); Glucose 101 mg/dL (65-115); Magnesium 1.7 mg/dL (1.7-2.3); Osmolality Calculated 295 mOsm/kg (285-295); Potassium 3.4 mmol/L (3.5-5.1); Sodium 142 mmol/L (136-145); Total Protein 5.7 g/dL (6.6-8.7)
[2024-11-26 13:23] LABS: ABG PCO2 39.7 mmHg (35-45); ABG PH Result 7.55 (7.35-7.45); Alveolar-Arterial Oxygen Gradi 4.6 mmHg (5-10); Arterial Blood Gas Hematocrit 24.3 % (37-47); Blood Gas Allen Test Pos; Blood Gas Operator Identificat MONRO; Blood Gas Sample Site Radial, left; Blood Gas Sample Type Arterial; Carboxyhemoglobin 1.7 %THgb (0.4-20.1); Glucose Level-ABG 119.0 mg/dL (70-115); HCO3 ABG 34.6 mmol/L (22-26); Ionized Calcium Level - ABG 1.1 mmol/L (1.1-1.4); Methemoglobin 0.4 % (0.4-1.5); Oxygen Saturation ABG 95.1; PO2 ABG 66.1 mmHg (80.0-100.0); PO2 FiO2 Ratio Arterial Blood 314; Potassium Level - ABG 3.3 mmol/L (3.5-5.0); Sodium Level - ABG 141.0 mmol/L (131-143)
[2024-11-26 14:07] LABS: Lactic Sepsis W/Reflex 0.8 mmol/L (0.5-2.2)
[2024-11-26 14:20] LABS: Lipase 27 U/L (13-60); NT Pro B Type Natriuretic Pept 21711 pg/mL (0-125)
[2024-11-26 16:22] LABS: Troponin 5 2HR 54.00 ng/L (0-10)
[2024-11-26 16:24] LABS: Ammonia 24 umol/L (11-51)
[2024-11-26 16:26] LABS: Troponin 5 2HR Delta -1.00 ABS# (0-10)
--- NOTE | 2024-11-26 17:06 | ECG_ITS ---
[employer] Test Date: 2024-11-26 Pat Name: Bharati Anthony Department: Room: EDIP Gender: Female Clammer: : 1975 Requested By: Rafat Martinez Order Number: [id number] Dung MD: Janusz Schaefer M.D. Measurements Intervals [place] Rate: 87 P: 61 NH: 132 QRS: 15 QRSD: 118 T: 79 QT: 431 QTc: 520 Interpretive Statements SINUS RHYTHM POSSIBLE LEFT ATRIAL ENLARGEMENT [-0.1mV P-WAVE IN V1/V2] POSSIBLE LATERAL MYOCARDIAL INFARCTION , PROBABLY OLD [30 ms Q WAVE IN I/aVL/V5/V6] NONSPECIFIC ST-T WAVE ABNORMALITY Compared to ECG 11/26/2024 12:05:01 No significant change Electronically Signed On 11-28-2024 23:02:53 CDT by Janusz Schaefer M.D. [id number] [id number]
[2024-11-26 17:56] LABS: Glucose Urine UA Negative (Normal); Nitrate Urine Negative (Negative); Specific Gravity, Urine 1.004 (1.005-1.030)
[2024-11-26 17:59] LABS: Add Urine Microscopic? YES
--- NOTE | 2024-11-26 18:37 | PM.HP ---
Providers/Chief Complaint Admitting Physician: Brian Philippe MD Primary Care Provider: Herber Hussein MD Chief Complaint: ams History of Present Illness Bharati Anthony is a 49 year old female with episodes of confusion. She was doing her usual Tuesday dialysis and while her the dialysis techs that her neck made Taco states that she noted patient was having confusion and not her usual self but spoke with Radha the charge nurse who instructed that the patient be told to go to the emergency department. Patient saw Dr. Samuel who states that initially patient was giving a good history but then started as again seeking and was anxious Patient was referred for admission. She states she has improved again. Patient admits to taking ropinirole but states that she only takes 1 at night. She denies alcohol use denies weed use and many many years and no meth use in 8 years. Review of Systems Narrative: General no fevers chills Cardiovascular no chest pain or palpitations respiratory shortness breath cough wheezing GI no nausea vomiting diarrhea she makes minimal urine. Musculoskeletal patient denies pain Medications/Allergies Home Medications ?Medication ?Instructions ?Recorded ?Confirmed ?Last Taken ?Type acetaminophen 325 mg capsule 650 mg PO QID PRN Pain 06/19/19 11/26/24 07/30/24 History pantoprazole 40 mg tablet,delayed 40 mg PO BID 06/19/19 11/26/24 11/23/24 History release diphenhydramine HCl 25 mg capsule 25 mg PO TID PRN Itching 04/01/20 11/26/24 07/30/24 History (Benadryl) melatonin 10 mg capsule 10 mg PO BEDTIME 01/21/23 11/26/24 11/23/24 21:00 History ropinirole 0.25 mg tablet 0.25 mg PO BEDTIME 01/21/23 11/26/24 11/23/24 History vit B,C-folic ac 800 mcg-zinc 12.5 1 tab PO DAILY 01/21/23 11/26/24 11/23/24 History mg-selen-D3 2,000 unit-vit E tablet (RenaPlex-D) amlodipine 10 mg tablet 10 mg PO DAILY 03/22/24 11/26/24 11/23/24 History citalopram 20 mg tablet 20 mg PO DAILY 03/22/24 11/26/24 11/23/24 History albuterol sulfate 90 mcg/actuation 2 inh inhalation QID shortness of 09/04/24 11/26/24 Unknown Rx aerosol inhaler breath #8.5 grams alprazolam 0.25 mg tablet (Xanax) 0.25 mg PO BID PRN Anxiety and 10/17/24 11/26/24 11/23/24 Rx nausea #10 tabs folic acid 1 mg tablet 1,000 mcg PO DAILY #30 tabs 10/17/24 11/26/24 11/23/24 Rx thiamine mononitrate (vit B1) 100 100 mg PO DAILY #30 tabs 10/17/24 11/26/24 11/23/24 Rx mg tablet (Vitamin B-1 (mononitrate)) ondansetron 4 mg disintegrating 4 mg PO Q6H PRN nausea and 10/22/24 11/26/24 Unknown Rx tablet vomiting #14 tabs azithromycin 250 mg tablet See Rx Instructions PO .COMPLEX #6 11/17/24 11/26/24 Unknown Rx tabs apixaban 2.5 mg tablet (Eliquis) 2.5 mg PO BID 11/26/24 11/26/24 11/23/24 History scopolamine base 1 mg over 3 days 1 patch topical Q72H 11/26/24 11/26/24 Unknown History transdermal patch Allergies Allergy/AdvReac Type Severity Reaction Status Date / Time sulfamethoxazole (From Allergy Severe ALGY-Rash Verified 09/18/24 10:58 Sulfamethoxazole-Trimethoprim) trimethoprim (From Allergy Severe ALGY-Rash Verified 09/18/24 10:58 Sulfamethoxazole-Trimethoprim) adhesive tape Allergy Unknown blisters Verified 09/18/24 10:58 Cephalosporins Allergy Unknown unknown Verified 09/18/24 10:58 doxycycline Allergy ADR-Vomitin Verified 09/18/24 10:58 g latex Allergy blisters Verified 09/18/24 10:58 Sulfa (Sulfonamide Allergy Unknown Verified 10/16/24 07:58 Antibiotics) PFSH Acute PFSH: Medical History (Updated 11/26/24 @ 14:03 by Rafat Samuel DO) Tachycardia Diabetes Deep vein thrombosis (DVT) during Chronic anticoagulation Squamous cell carcinoma of anal canal Diabetes mellitus End-stage renal disease Surgical History Status post surgery (05/19/20) Removal of peritoneal dialysis catheter Port-A-Cath in place S/P hemodialysis catheter insertion (01/09/20) Removed 11/18/2020 Peritoneal dialysis status H/O colonoscopy H/O hand surgery History of hip surgery History of hysterectomy Family History Other Cancer Diabetes Denies family history of Anesthesia complication Bleeding disorder Social History (Updated 11/26/24 @ 18:41 by Brian Philippe MD) Smoking and tobacco/nicotine status: current every day tobacco/nicotine user cigarettes Packs smoked per day: 0.25 Alcohol intake: never Substance/Drug Use: former Date of last use: Greater than 8 years ago as of 11/26/2024 Former substance use details: Marijuana and then switched to methamphetamines but stopped greater than 8 Additional social history: CODE STATUS discussed and patient wants DNR on 11/26/2024 with Brian Philippe MD Household members: family Marital status: Single Current occupational status: disabled Vitals/I&O/Wt Last Vital Signs Temp 98.7 F 11/26/24 10:23 Pulse 97 11/26/24 17:49 Resp 16 11/26/24 17:49 BP 152/69 11/26/24 17:49 Pulse Ox 97 11/26/24 17:49 O2 Del Method Room Air 11/26/24 17:49 11/26/24 11/26/24 11/26/24 06:59 14:59 22:59 Intake Total 0 / 0 Balance 0 / 0 Weight last 48 hrs Weight 72 kg Physical Exam Narrative: General well-developed well-nourished female in no acute cardiopulmonary distress Neuro pupils equally round face is symmetric speech is clear motor strength 5/5 bilateral ankle flexion and extension patient moves all extremities symmetrically. Oropharynx dentition poor CV regular rate and rhythm Lungs clear to auscultation bilaterally Abdomen positive bowel tones soft nontender Calves no tenderness cords pretibial edema Skin warm and dry Data 11/26/24 12:03 11/26/24 12:03 Micro: Microbiology 11/26/24 15:44 Blood Culture - Preliminary Blood SPECIMEN COLLECTED 11/26/24 15:40 Blood Culture - Preliminary Blood SPECIMEN COLLECTED A&P Assessment and plan 1. Altered mental status: I think this is most likely medication related. I considered serotonin syndrome but she does not have temperature dysregulation and sweating or current agitation. The confusion may be related to melatonin patient takes 10 mg at night. Additionally [id number] preparations of melatonin are known to be inaccurate in terms of dosing. Patient's labs otherwise unremarkable given patient's baseline abnormalities from renal function. Hematocrit is low at 22.7 and will be repeated in the morning. 2. ESRD (end stage renal disease) on dialysis: She receives dialysis Tuesday PDMP PDMP Reviewed: Not Reviewed Attestations Medical Necessity Statement*: Patient to the hospital for observation overnight and expected to stay less than 2 midnights Coding Level of Care Code 14543 Diagnoses Altered mental status R41.82 ESRD (end stage renal disease) on dialysis N18.6; Z99.2 Time Spent (min) 50
--- NOTE | 2024-11-26 18:46 | USR_ITS ---
PROCEDURE INFORMATION: Exam: US Duplex Bilateral Extracranial Arteries; Complete; Carotid Arteries Exam date and time: 11/26/2024 7:42 PM Age: 49 years old Clinical indication: Altered mental status/memory loss; Confusion or disorientation; Additional info: Altered mental status episodic TECHNIQUE: Imaging protocol: Real-time duplex ultrasound scan of the bilateral extracranial arteries combining perez scale, color Doppler and spectral waveform analysis with image documentation. Complete exam. Exam focused on the carotid arteries. COMPARISON: CT head wo con* [id number] 11/26/2024 10:41 AM FINDINGS: Right common carotid artery: Unremarkable. No occlusion or stenosis. Waveforms are normal. Right internal carotid artery: Atherosclerotic plaquing of the proximal segment. Approximately 50-69% stenosis of proximal and mid segments by peak systolic velocity. Distal segment demonstrates normal velocity. Waveforms are normal. Right ICA/CCA ratio: Borderline elevated at 1.8. Right external carotid artery: No stenosis in the origin. Right vertebral artery: Unremarkable. Antegrade flow. Left common carotid artery: Unremarkable. No occlusion or stenosis. Waveforms are normal. Left internal carotid artery: Atherosclerotic plaquing of the proximal segment. Approximately 50-69% stenosis of the mid and distal segments by peak systolic velocity. Proximal segment demonstrates normal velocity. Waveforms are normal. Left ICA/CCA ratio: Mildly elevated at 2.0. Left external carotid artery: No stenosis in the origin. Left vertebral artery: Unremarkable. Antegrade flow. US/CV carotid duplex BI* [id number] IMPRESSION: Approximately 50-69% stenosis of the proximal and mid right ICA and 50-69% stenosis of the mid and distal left ICA. REFERENCES: SRU CRITERIA. The degree of internal carotid artery stenosis is based on criteria defined by the Society of Radiologists in Ultrasound (SRU). Normal is no stenosis. Mild is less than 50% stenosis. Moderate is 50-69% stenosis. Severe is greater than 69% stenosis to near occlusion. Near occlusion is a markedly narrowed lumen. Total occlusion is no detectable patent lumen. Donna Garcia, et al. Carotid Artery Stenosis: Perez-Scale and Doppler US Diagnosis-Society of Radiologists in Ultrasound Consensus Conference. Radiology 2003; 229:340-346.
[2024-11-26 19:06] LABS: Troponin 5 6HR 58.85 ng/L (0-10); Troponin 5 6HR Delta 3.85 ng/L (0-12)
[2024-11-26] MEDS: APIXABAN 2.5 MG TABLET PO (20:34)
--- OUTSIDE RECORDS SUMMARY | 2024-11-26 21:36 | XMS_ITS | Encounter Summary ---
Author Organization [facility], [facility] Address [address] [place] [address] Phone Care Team Providers Care Roller Stainer Name Role Phone Herber Hussein MD Primary Care Provider [phone] Encounter Details Date Type Department Care Team (Late st Contact Info) Description 11/26/2024 Treatment [facility] [address] [place] [address] Fabiana Butts NP [address] [place] [address] Heart failure; End stage renal [...] Date: 11/26/2024 This patient was personally seen [id number] for a complete visit as part of routine monthly dialysis care for end stage renal disease. Attending Storage Garage Attendant: RODDY HENDERSON MD Dialysis Location: [facility] Schedule: Shift: 1 OVERVIEW Patient is stable. Patient has no complaints. COMMENTS: Vss, seen on hd machine. Denies concerns for me today HOME MEDICATIONS Current [facility] Outpatient Medications acetaminophen 500 mg tablet [...] 97.8*F Current Dialysis Vitals BP Sit: 165/84 AP/BAND LOG MILL AND CARRIAGE OPERATOR: -- Pulse: 97 TREATMENT MEDICATIONS ORDERS Epoetin [...] 02/22/24 Albumin not at goal. Referred to fern cutter for further counseling. PHYSICAL EXAM Exam not [...] dialysis documented in this encounter Care Teams Roller Stainer Relationship Specialty Start Date End Date Herber Hussein MD [address] [place] [address] PCP - General Family Medicine 07/14/18 documented as of this encounter
--- OUTSIDE RECORDS SUMMARY | 2024-11-26 21:36 | XMS_ITS | Encounter Summary ---
Author Organization [facility], [facility] Address [address] [place] [address] Phone Care Team Providers Care Candy Dipper Hand Name Role Phone Herber Hussein MD Primary Care Provider [phone] Reason for Visit * Reason Comments Med Refill Encounter Details Date Type Department Care Team (Late st Contact Info) Description 02/08/2024 Refill [facility] [address] [place] [id number] Bee Chavarria MD [address] [place] [address] Social History Tobacco Use [...] (02/08/2024) Hemoglobin 8.9(L) 12.0 - 16.0 g/dL [facility] Hemoglobin x 3 26.7(L) 36.0 - 48.0 % [facility] 02/08/2024 02/09/2024 12: 25 PM FURNITURE DUSTER Narrative [facility] - 02/09/2024 Unless otherwise specified, test(s) performed at: [facility], [address] [place], [place] [id number] PARER: Michael Knox M.D. For any questions, please call customer service at FREQUENCY:OTHER Resulting Agency Comment Specimen source: Blood us Bee Chavarria MD LAB BLOOD ORDERABLES Final Re sult [facility] See order comments or contact performing lab Unknown, [place] documented in this encounter Visit Diagnoses Not on filedocumented in this encounter Care Teams Candy Dipper Hand Relationship Specialty Start Date End Date Herber Hussein MD [address] [place] [address] PCP - General Family Medicine 07/14/18 documented as of this encounter
--- OUTSIDE RECORDS SUMMARY | 2024-11-26 21:36 | XMS_ITS | Encounter Summary ---
Author Organization [facility] Address [address] [place] [address] Phone Care Team Providers Care Precision Lens Technician Name Role Phone Herber Hussein MD Primary Care Provider [phone] Reason for Visit * Reason Comments Med Refill Encounter Details Date Type Department Care Team (Late st Contact Info) Description 02/21/2024 Refill [facility] [address] [place] [address] Bee Chavarria MD [address] [place] [address] Social History Tobacco Use Types [...] on filedocumented in this encounter Care Teams Precision Lens Technician Relationship Specialty Start Date End Date Herber Hussein MD [address] [place] [address] PCP - General Family Medicine 07/14/18 documented as of this encounter
--- OUTSIDE RECORDS SUMMARY | 2024-11-26 21:36 | XMS_ITS | Encounter Summary ---
Author Organization [facility], [facility] Address [address] [place] [address] Phone Care Team Providers Care Dishwasher Busser Name Role Phone Herber Hussein MD Primary Care Provider [phone] Encounter Details Date Type Department Care Team (Late st Contact Info) Description 11/21/2024 Treatment [facility] [address] [place] [address] Ana Viramontes NP [address] [place] [address] End stage renal disease; Dependence [...] Bharati Anthony, 1975, 49y, F Dialysis Location: [facility] Attending Case Picker: Bee Chavarria Service Date: 11/21/2024 Service Provider: [...] TRANSPLANT Comments: She has received paperwork from [facility] for transplant. She has now decided again [...] dialysis documented in this encounter Care Teams Dishwasher Busser Relationship Specialty Start Date End Date Herber Hussein MD [address] [place] [address] PCP - General Family Medicine 07/14/18 documented as of this encounter
--- OUTSIDE RECORDS SUMMARY | 2024-11-26 21:36 | XMS_ITS | Encounter Summary ---
Author Organization [facility] [employer] [facility], [facility] Address [address] [place] [address] Phone Care Team Providers Care Rfid Strategist Name Role Phone Herber Hussein MD Primary Care Provider [phone] Encounter Details Date Type Department Care Team (Late st Contact Info) Description 11/21/2024 Orders Only [facility] [address] [place] [address] Bee Chavarria MD [address] [place] [address] Social History Tobacco Use Types [...] 11/21/2024 CHEMISTRY Routine 11/21/2024 CHEMISTRY Routine 11/21/2024 [facility] LAB RESULTS Routine 11/21/2024 documented in this encounter Results * [facility] Lab Results (11/21/2024) Pathologist [facility] WSTDKT/V 2.4 [facility] spKt/V (Daugirdas II) 1.50 [facility] eKdrt/V 1.21 [facility] eKt/V (Tattersall) 1.24 [facility] eKt/V Gotch 1.21 [facility] e Center spKt/V Gotch 1.52 [facility] eNPCR 0.70 [facility] nPCR_HD 0.77 [facility] PCR 42.05 [facility] 11/21/2024 11/21/2024 [facility] Ordering Provider LAB BLOOD ORDERABLES Final Result [facility] Contact Performing lab Unknown, [place] * HD KINETICS (11/21/2024) Pathologist [facility] % Urea Reduction 74 65 - 80 % [facility] 11/21/2024 11/22/2024 12: 02 PM CDT Narrative [facility] - 11/22/2024 Unless otherwise specified, test(s) performed at: [facility], [address] [place] [address] BULLET ASSEMBLY PRESS OPERATOR: Michael Knox M.D. For any questions, please call customer service at FREQUENCY:MONTHLY Resulting Agency Comment Specimen source: Plasma Bee Chavarria MD LAB BLOOD ORDERABLES Final Re sult [facility] See order comments or contact performing lab [...] 11/22/2024 Unless otherwise specified, test(s) performed at: [facility], [address] [place] [address] BULLET ASSEMBLY PRESS OPERATOR: Michael Knox M.D. For any questions, please call customer service at FREQUENCY:MONTHLY Resulting Agency Comment Specimen source: Serum us Bee Chavarria MD LAB BLOOD ORDERABLES Edited R esult - Final [facility] See order comments or contact performing lab Unknown, [place] * POST CHEMISTRY (11/21/2024) Pathologist [facility] BUN Post Dialysis 11 6 - 19 mg/dL [facility] 11/21/2024 11/22/2024 12: 02 PM CDT Narrative [facility] - 11/22/2024 Unless otherwise specified, test(s) performed at: [facility], [address] [place] [address] BULLET ASSEMBLY PRESS OPERATOR: Michael Knox M.D. For any questions, please call customer service at FREQUENCY:MONTHLY Resulting Agency Comment Specimen source: Plasma us Bee Chavarria MD LAB BLOOD ORDERABLES Final Re sult Performing Organization Address [facility] de Phone Number [facility]Bizz [facility] See order comments or contact performing lab Unknown, [place] * (ABNORMAL) [facility] (11/21/2024) [facility] PTH 256(H) 16 - 80 pg/mL [facility] 11/21/2024 11/22/2024 10: 57 AM CDT Narrative [facility] - 11/22/2024 Unless otherwise specified, test(s) performed at: [facility], [address] [place] [address] BULLET ASSEMBLY PRESS OPERATOR: Michael Knox M.D. For any questions, please call customer service at FREQUENCY:MONTHLY Resulting Agency Comment Specimen source: Plasma us Bee Chavarria MD LAB BLOOD ORDERABLES Final Re sult Performing Organization Address [facility] de Phone Number [facility]Bizz [facility] See order comments or contact performing lab Unknown, [place] * TRACE ELEMENTS (11/21/2024) [facility] Aluminum <5 0 - 10 mcg/L [facility] Comment: This test was developed and its performance characteristics determined by [facility]. It has not been cleared or approved by the FDA. The laboratory is regulated under CLIA as qualified to perform high complexity testing. This test is used for clinical purposes. It should not be regarded as investigational or for research. 11/21/2024 11/22/2024 10: 12 AM CDT Narrative [facility] - 11/22/2024 Unless otherwise specified, test(s) performed at: [facility], [address] [place] [id number] BULLET ASSEMBLY PRESS OPERATOR: Michael Knox M.D. For any questions, please call customer service at FREQUENCY:MONTHLY Resulting Agency Comment Specimen source: Serum us Bee Chavarria MD LAB BLOOD ORDERABLES Final Re sult [facility] See order comments or contact performing lab [...] 11/21/2024 11/22/2024 10: 48 AM CDT Narrative [facility] - 11/22/2024 Unless otherwise specified, test(s) performed at: [facility], [address] [place] [address] BULLET ASSEMBLY PRESS OPERATOR: Michael Knox M.D. For any questions, please call customer service at FREQUENCY:MONTHLY Resulting Agency Comment Specimen source: Blood us Bee Chavarria MD LAB BLOOD ORDERABLES Final Re sult [facility] See order comments or contact performing lab Unknown, [place] documented in this encounter Visit Diagnoses Not on filedocumented in this encounter Care Teams Rfid Strategist Relationship Specialty Start Date End Date Herber Hussein MD [address] [place] [address] PCP - General Family Medicine 07/14/18 documented as of this encounter
--- OUTSIDE RECORDS SUMMARY | 2024-11-26 21:36 | XMS_ITS | Encounter Summary ---
Author Organization [facility], [facility] Address [address] [place] [address] Phone Care Team Providers Care Manager Willow Name Role Phone Herber Hussein MD Primary Care Provider [phone] Encounter Details Date Type Department Care Team (Late st Contact Info) Description 11/05/2024 TCM in Dialysis Clinic [facility], [facility] [address] [place] [address] Fabiana Butts, [place] [address] [place] [address] Social History Tobacco Use Types [...] Patient: Bharati Serna Raj : 1975 VBC: [facility] Note Type: Dialysis TCM Service Date: 11/05/2024 The patient was seen for a zbwi-bh-vprc visit as part of Transitional Care Management services. Attending Recycling Sorter: RODDY HENDERSON Dialysis Location: [facility] Schedule: Shift: 1 INTERACTIVE CONTACT Contact with the patient or caregiver was made or attempted within 2 business days of discharge - details in the medical record. COMMENTS: HORACIO bailey [facility] called patient, reviewed and updated medications, reviewed [...] COMMENTS: Given metoclopramide and ondansetron Current [facility] Outpatient Medications acetaminophen (TYLENOL) tablet Take 500 [...] 98.4*F Current Dialysis Vitals BP Sit: 129/65 AP/JURY CONSULTANT: 188/194 Pulse: 108 CARE COORDINATION Post-discharge follow-up appointments reviewed with the patient. COMMENTS: Follow up within the next 10 days with PCP and GI EDUCATION Education relevant to the discharge diagnosis provided to the patient or caregiver IMPRESSION & PLAN COMMENTS: Obtain Hgb today, assess for adjustments to DORINDA/iron replacement based upon results. VISIT DIAGNOSES CPT Code 71426 - High complexity, seen within 7 days of discharge. K92.0 Hematemesis K31.84 Gastroparesis Signed by: FABIANA BUTTS NP on 11/05/2024 at 08:19:48 AM Transcribed by: FABIANA BUTTS NP on 11/05/2024 at 08:19:48 AM documented in this encounter Plan of Treatment Not on file documented as of this encounter Visit Diagnoses Not on filedocumented in this encounter Care Teams Manager Willow Relationship Specialty Start Date End Date Herber Hussein MD [address] [place] [address] PCP - General Family Medicine 07/14/18 documented as of this encounter
--- OUTSIDE RECORDS SUMMARY | 2024-11-26 21:37 | XMS_ITS ---
Author Name [facility], [facility] Address [address] [place] [address] Phone [phone] Organization [facility] Formerly [facility] e, NA DOCUMENT DISCLAIMER Multiple document versions may exist, please be sure you review the latest version. The information in the [facility] Continuity of Care Document represents a summary [...] Route Start Date End Date Stat us Acetaminophen PRN-may repeat x1 pain 650 mg Oral August 01, 2024 July 31, 2025 Active Diphenhydramine PRN-may repeat x1 itching 50 mg Intravenous - push September 19, 2024 September 18, 2025 Active Epoetin Mata (Epogen) During Dialysis, 3X Week 4200 units Intravenous - push November 19, 2024 November 18, 2025 Active Iron Sucrose (Venofer) 1X [...] November 12, 2024 November 11, 2025 Discontinued Home Medications Medication Instructions Dosage Route Start Date End Date Stat us acetaminophen 500 mg Take by mouth four times a day 1 tablet ORAL November 05, 2024 Active alprazolam 0.25 mg Take by mouth twice a day as needed 1 tablet ORAL July 30, 2020 Active amlodipine 10 mg Take by mouth once a day 1 tablet ORAL August 24, 2023 Active carvedilol 25 mg Take by mouth twice a day 1 tablet ORAL August 24, 2023 Active citalopram 20 mg Take by mouth once a day 1 tablet ORAL November 23, 2024 Active diphenhydramine HCl 25 mg Take [...] Active melatonin 10 mg Take by mouth every night as needed 2 tablet ORAL November 01, 2024 Active metoclopramide HCl 5 mg Take by mouth three times a day 1 tablet ORAL November 01, 2024 Active promethazine 25 mg Take by mouth every four hours as needed 1 tablet ORAL December 21, 2023 Active Protonix 40 mg Take by mouth twice a day as directed 1 tablet ORAL [...] 2 puff INHALATION September 04, 2024 Active bismuth subsalicylate 262 mg Take by mouth four times a day as needed 1 tablet ORAL November 23, 2024 Discontinued Celexa 20 mg Take by mouth once a day 1 tablet ORAL November 05, 2024 Discontinued citalopram 40 mg Take by mouth every morning 1 tablet ORAL November 01, 2024 November 23, 2024 Discontinued diphenhydramine HCl 50 mg Take by mouth every four hours as needed 1 capsule ORAL October 24, 2024 November 05, 2024 Discontinued melatonin 10 mg Take by mouth at bedtime as needed 1 capsule ORAL November 05, 2024 Discontinued ondansetron HCl 4 mg Take by mouth every eight hours as needed 1 tablet ORAL November 23, 2024 Discontinued Ozempic 1 mg/dose (2 mg/1.5 mL) Inject subcutaneously once a week 1 mg subcutaneousl y November 22, 2024 Discontinued Reglan 5 mg Take by mouth three times a day 1 tablet ORAL October 04, 2024 November 05, 2024 Discontinued VITAL SIGNS Post-Treatment Vital Signs Vital Sign Value Date / Time Blood Pressure-sitting 163/78 mmHg November 26, 2024 06:25 AM Blood Pressure-standing 153/77 mmHg Septembe 2024 06:25 AM Heart Rate 103 beats per minute November 06:25 AM Respiratory Rate 16 breaths per minute November 26, 2024 06:25 AM Temperature 96.7 deg. F November 26 06:25 AM Weight Vital Sign Value Date / Time Estimated Dry Weight 71 kg November 12, 2024 11:59 PM Pre-Dialysis 72.60 kg November 26 06:25 AM Post-Dialysis 71.60 kg November 26 06:25 AM Other Other Value Date / Time Height 176 cm May 14 12:00 AM Body Mass Index 22.92 kg/m2 November 14, 2024 01:33 PM HEALTH CONCERNS Tuberculosis Testing TST Date Administered TST Date Read TST Result 12/01/2020 12/03/2020 No information a vailable LAB RESULTS Hematology Result Type Result Value Relevant Referen ce Range Interpretation Date Folate, Serum 21.5 ng/mL No Reference Ran ge Provided - May 23, 2024 Transferrin Sat. (Calc) [...] - 355 mcg/dL Low August 24, 2024 Transferrin Sat. (Calc) 46 % 20 - 55 % - August 24, 2024 TIBC (Calc) 231 mcg/dL 185 - 515 mcg/dL - August Ferritin 1622 ng/mL 10 - 291 ng/mL High August 24 025 WBC (No Diff) 7.14 1000/mcL 4.80 - 10.80 1000/mcL - August 24, 2024 Neutrophils 35.2 % 40.0 - 75.0 % Low August 24 025 Platelets 144 1000/mcL 130 - 400 1000/mcL [...] 40.0 - 75.0 % - September 19, 2 025 Monocytes 4.2 % 3.0 - 10.0 % - September 19 Lymphocytes 19.5 % 19.0 - 48.0 % - September 19 025 Transferrin Sat. (Calc) 23 % 20 - 55 % - September 19, 2024 Platelets 170 1000/mcL 130 - 400 1000/mcL - September 19, 2024 Hemoglobin x 3 28.5 % 36.0 - 48.0 % Low September MCHC 34.1 g/dL 30.0 - 36.0 g/dL - September 19, 2024 MCH 35.4 pg 27.0 - 31.0 pg High September 19, 025 RDW 18.4 % 11.5 - 14.5 % [...] 48.0 % Low September Hemoglobin x 3 37.2 % 36.0 - [...] % 3.0 - 10.0 % - October 24, 025 Platelets 192 1000/mcL 130 - 400 1000/mcL - 2024 WBC (No Diff) 6.78 1000/mcL 4.80 - 10.80 1000/mcL - October 24, 2024 RDW 15.9 % 11.5 - 14.5 % High October 24, 2024 MCHC 32.2 g/dL 30.0 - 36.0 g/dL - October Hemoglobin x 3 39.6 % 36.0 - 48.0 % - October 24, 2024 MCH 33.2 pg 27.0 [...] - 48.0 % Low November 14, 2024 Ferritin 1058 ng/mL 10 - 291 ng/mL High November 21, 2024 Transferrin Sat. (Calc) 41 % 20 - 55 % - November 21 HGB 8.0 g/dL 12.0 - 16.0 g/dL Low 2024 Hemoglobin x 3 24 % 36.0 - 48.0 % Low 2024 Platelets 183 1000/mcL 130 - 400 1000/mcL - Nov MCH 34.4 pg 27.0 - 31.0 pg High November 21, 2024 MCHC 33.7 g/dL 30.0 - 36.0 g/dL - 2024 RDW 17.0 % 11.5 - 14.5 % High November Monocytes 3.8 % 3.0 - 10.0 % - November Eosinophil 4.5 % 0.0 - 7.0 % - November 21, 2024 Basophils 0.5 % 0.0 - 1.5 % - November 21, 2024 KARON 2.1 % 0.0 - 4.0 % - November 21, 2024 Neutrophils 68.9 % 40.0 - 75.0 % - November 21, 2024 Lymphocytes 20.1 % 19.0 - 48.0 % - November 21, 2024 WBC (No Diff) 5.03 1000/mcL 4.80 - 10.80 1000/mcL - November 21, 2024 RBC 2.32 mill/mcL 4.20 - 5.40 mill/mcL Low November 21, 2024 HCT 23.7 % 37.0 - 47.0 % Low November Iron 89 mcg/dL 30 - 160 mcg/dL - November 21, 2024 TIBC (Calc) 219 mcg/dL 185 - 515 mcg/dL - er 2024 UIBC/TIBC 130 mcg/dL 155 - 355 mcg/dL Low e r 2024 Metabolic/Renal Result Type Result Value Relevant Referen ce Range Interpretation Date Chloride 103 mEq/L 96 - 108 mEq/L - September 19, Bicarbonate 23 mEq/L 22 - 29 mEq/L - September 19 Creatinine, Serum 4.97 mg/dL 0.60 - 1.30 [...] mg/dL 6 - 19 mg/dL High October 24, 025 Creatinine, Serum 5.51 mg/dL 0.60 - 1.30 mg/dL High October 24, 2024 URR, Calc 74 % 65 - 80 % - October 24 BUN, Post 8 mg/dL 6 - 19 mg/dL - October 24 025 BUN, Post 11 mg/dL 6 - 19 mg/dL - November URR, Calc 74 % 65 - 80 % - November 21, 2024 BUN 42 mg/dL 6 - 19 mg/dL High November BUN/Creat Ratio 8.0 10.0 - 20.0 Low Septemb2024 Creatinine, Serum 5.27 mg/dL 0.60 - 1.30 mg/dL High November 21, 2024 Potassium 4.4 mEq/L 3.5 - 5.1 mEq/L - November 21, 2024 Sodium 140 mEq/L 136 - 145 mEq/L - November 21, 2024 Chloride 104 mEq/L 96 - 108 mEq/L - November 21, 2024 Bicarbonate 22 mEq/L 22 - 29 mEq/L - November 21, 2024 HD Adequacy Result Type Result Value Relevant [...] Reference Range Provided - October 24, 2024 eKt/V ([place]) 1.24 No Reference Range Provided - November 21, 2024 wstdKt/V without residual 2.4 No Reference Range Provided - November 21, 2024 spKt/V (Daugirdas II) 1.50 No Reference Range Provided - November 21, 2024 wstdKt/V 2.4 No Reference Ran ge Provided - November 21, 2024 spKt/V Gotch 1.52 No Reference Ran ge Provided - November 21, 2024 wstdKt/V, residual 0.0 No Reference Range Provided - November 21, 2024 Krt/V 0.00 No Reference Ran ge Provided - November 21, 2024 Bone/Mineral Result Type Result Value Relevant Referen ce Range Interpretation Date Magnesium 1.8 mg/dL 1.6 - 2.6 mg/dL - February 22, 2024 Vitamin D 25 Hydroxy 32.4 ng/mL 30.0 - 100.0 ng/mL - May 23, 2024 Magnesium 2.0 mg/dL 1.6 - 2.6 mg/dL - May 23, 2024 Magnesium 1.8 mg/dL 1.6 - 2.6 mg/dL - August 24, 2024 PTH-Intact, Plasma 446 [...] 0 - 54 High October 24, 2024 PTH-Intact, Plasma 256 pg/mL 16 - 80 pg/mL High Nov Calcium, Total 8.6 mg/dL 8.4 - 10.2 mg/dL - Nov ember 2024 Ca x P Product 46 0 - 54 - November 21, 2024 Phosphorus 5.3 mg/dL 2.6 - 4.5 mg/dL High November 21, 2024 Alkaline Phosphatase 73 U/L 35 - 104 U/L - Se ptember 2024 Corrected Ca x P Product 47 0 - 54 - November 21, Magnesium 1.8 mg/dL 1.6 - 2.6 mg/dL - November 21, 2024 Liver/Nutrition Result Type Result Value Relevant Referen ce Range Interpretation Date Globulin (Calc) 2.5 g/dL 2.0 - 4.0 [...] Ran ge Provided - October 24, 2024 eNPCR 0.70 No Reference Ran ge Provided - November 21, 2024 Total Protein 5.8 g/dL 6.0 - 8.5 g/dL Low Septemb er 2024 Albumin (BCG) 3.6 g/dL 3.5 - 5.2 g/dL - Novemb er 2024 Globulin (Calc) 2.2 g/dL 2.0 - 4.0 g/dL - mb2024 A/G Ratio 1.6 1.0 - 2.0 - November 21, 2024 Therapeutic Drugs Result Type Result Value Relevant Referen ce Range Interpretation Date Vancomycin, Trough 17.7 mcg/mL 10.0 - 20.0 mcg/mL - March 12, 2024 Trace Elements Result Type Result Value Relevant Reference Range Interpre tation Date Aluminum < 5 mcg/L 0 - 10 mcg/L - May 23 Aluminum < 5 mcg/L 0 - 10 mcg/L - November Infectious Diseases Result Type Result Value Relevant Referen ce Range Interpretation Date Hep B Surface Ab (anti-HBs) > 1000 [...] (mL/min) Dialysate Dialyzer Dialysis Access Meds Admin [facility] 2024 Weight 72.80 kg Weight 71.10 kg 02:44:00 460 3.0 K, 2.5 Ca, 1.0 Mg, 100 Dextrose (G3251) 180nre Optifl ux Blood Pressure-sitting 163/66 mmHg Blood Pressure-sit ting 123/55 mmHg Blood Pressure-standing 141/63 mmHg Blood Pressure-st anding 161/91 mmHg Heart Rate 112 beats per minute Heart Rate 99 beats per minute Respiratory Rate 16 breaths per minute Respiratory Rate 18 breaths per minute Temperature 98.4 deg. F Temperature 97.1 deg. F November 23, 2024 Weight 71.70 kg Weight 70.20 kg 02:50:00 450 3.0 K, 2.5 Ca, 1.0 Mg, 100 Dextrose (G3251) 180nre Optiflux Hemodialysis-AV Fistula-Transposed, Right Thigh, Femoral Artery to Saphenous Vein Access Placed on August 19, 2020 Diphenhydramine; 50mg,Intravenous - push Epoetin Mata (Epogen); 4200units,Intravenous - push Vitamin D (Calcitriol) Oral; 1.0mcg,Oral Blood Pressure-sitting 138/76 mmHg Blood Pressure-sit ting 132/63 mmHg Blood Pressure-standing 111/75 mmHg Blood Pressure-st anding 134/57 mmHg Heart Rate 107 beats per minute Heart Rate 101 beats per minute Respiratory Rate 16 breaths per minute Respiratory Rate 18 breaths per minute Temperature 98.1 deg. F Temperature 97.8 deg. F November 26, 2024 Weight 72.60 kg Weight 71.60 kg 02:47:00 470 3.0 K, 2.5 Ca, 1.0 Mg, 100 Dextrose (G3251) 180nre Optiflux Hemodialysis-AV Fistula-Transposed, Right Thigh, Femoral Artery to Saphenous Vein Access Placed on August 19, 2020 Diphenhydramine; 50mg,Intravenous - push Epoetin Mata (Epogen); 4200units,Intravenous - push Iron Sucrose (Venofer); 50mg,Intravenous - push Vitamin D (Calcitriol) Oral; 1.0mcg,Oral Blood Pressure-sitting 170/79 mmHg Blood Pressure-sit ting 163/78 mmHg Blood Pressure-standing 139/74 mmHg Blood Pressure-st anding 153/77 mmHg Heart Rate 117 beats per minute Heart Rate 103 beats per minute Respiratory Rate 18 breaths per minute Respiratory Rate 16 breaths per minute Temperature 97.8 deg. F Temperature 96.7 deg. F
--- OUTSIDE RECORDS SUMMARY | 2024-11-26 21:37 | XMS_ITS | Encounter Summary ---
Author Organization [facility] Address [address] [place] [address] Phone Care Team Providers Care Set Up Mechanic Name Role Phone Herber Hussein MD Primary Care Provider [phone] Reason for Visit * Reason Comments Med Refill Encounter Details Date Type Department Care Team (Late st Contact Info) Description 06/23/2024 [facility]ill [facility] [address] [place] [address] Bee Chavarria MD [address] [place] [address] Social History Tobacco Use Types [...] on filedocumented in this encounter Care Teams Set Up Mechanic Relationship Specialty Start Date End Date Herber Hussein MD [address] [place] [address] PCP - General Family Medicine 07/14/18 documented as of this encounter
--- OUTSIDE RECORDS SUMMARY | 2024-11-26 21:37 | XMS_ITS | Encounter Summary ---
Author Organization [facility] Address [address] [place] [address] Phone Care Team Providers Care Decorating Instructor Name Role Phone Herber Hussein MD Primary Care Provider [phone] Reason for Visit * Reason Comments Med Refill Encounter Details Date Type Department Care Team (Late st Contact Info) Description 11/20/2020 Refill [facility] [address] [place] [address] Mohsen Mann MD [address] [place] [address] Social History Tobacco Use Types [...] on filedocumented in this encounter Care Teams Decorating Instructor Relationship Specialty Start Date End Date Herber Hussein MD [address] [place] [address] PCP - General Family Medicine 07/14/18 documented as of this encounter
--- OUTSIDE RECORDS SUMMARY | 2024-11-26 21:37 | XMS_ITS | Encounter Summary ---
Author Organization [facility] Address [address] [place] [address] Phone Care Team Providers Care Machine Shop Inspector Name Role Phone Herber Hussein MD Primary Care Provider [phone] Reason for Visit * Reason Comments Med Refill Encounter Details Date Type Department Care Team (Late st Contact Info) Description 05/30/2020 Refill [facility] [address] [place] [address] Mohsen Mann MD [address] [place] [address] Social History Tobacco Use Types [...] filedocumented in this encounter Care Teams Machine Shop Inspector Relationship Specialty Start Date End Date Herber Hussein MD [address] [place] [address] PCP - General Family Medicine 07/14/18 documented as of this encounter
--- OUTSIDE RECORDS SUMMARY | 2024-11-26 21:37 | XMS_ITS | Encounter Summary ---
Author Organization [facility] Address [address] [facility] [address] [place] [address] Phone Care Team Providers Care Night Assistant Name Role Phone Herber Hussein MD Primary Care Provider [phone] Encounter Details Date Type Department Care Team (Late st Contact Info) Description 09/29/2018 Orders Only [facility] [address] [place] [address] Tl Lawson NP Chronic kidney [...] (HCC) documented in this encounter Care Teams Night Assistant Relationship Specialty Start Date End Date Herber Hussein MD [address] [place] [address] PCP - General Family Medicine 07/14/18 documented as of this encounter
--- OUTSIDE RECORDS SUMMARY | 2024-11-26 21:37 | XMS_ITS | Encounter Summary ---
Author Organization [facility] Address [address] [facility] [address] [place] [address] Phone Care Team Providers Care Coil Rewind Machine Operator Name Role Phone Herber Hussein MD Primary Care Provider [phone] Encounter Details Date Type Department Care Team (Late st Contact Info) Description 08/25/2018 Orders Only [facility] [address] [place] [address] Tl Lawson NP Chronic kidney [...] (HCC) documented in this encounter Care Teams Coil Rewind Machine Operator Relationship Specialty Start Date End Date Herber Hussein MD [address] [place] [address] PCP - General Family Medicine 07/14/18 documented as of this encounter
--- OUTSIDE RECORDS SUMMARY | 2024-11-26 21:37 | XMS_ITS | Encounter Summary ---
Author Organization [facility] Address [address] [place] [address] Phone Care Team Providers Care Finish Remover Name Role Phone Herber Hussein MD Primary Care Provider [phone] Reason for Visit * Reason Comments Med Refill Encounter Details Date Type Department Care Team (Late st Contact Info) Description 05/06/2020 Refill [facility] [address] [place] [address] Mohsen Mann MD [address] [place] [address] Social History Tobacco Use Types [...] on filedocumented in this encounter Care Teams Finish Remover Relationship Specialty Start Date End Date Herber Hussein MD [address] [place] [address] PCP - General Family Medicine 07/14/18 documented as of this encounter
--- OUTSIDE RECORDS SUMMARY | 2024-11-26 21:37 | XMS_ITS | Encounter Summary ---
Author Organization [facility] Address [address] [facility] [address] [place] [address] Phone Care Team Providers Care Wellness Guide Name Role Phone Herber Hussein MD Primary Care Provider Encounter Details Date Type Department Care Team (Late st Contact Info) Description 12/11/2018 Orders Only [facility] [address] [place] [address] Tl Lawson, [place] Chronic kidney [...] HEPATITIS C ANTIBODY Routine 04/30/2019 10:54 AM PLASTICS DESIGN ENGINEER HEPATITIS A ANTIBODY, IGM Routine 04/30/2019 10:54 AM PLASTICS DESIGN ENGINEER HEPATITIS B CORE ANTIBODY, IGM Routine 04/30/2019 10:54 AM PLASTICS DESIGN ENGINEER HEPATITIS B SURFACE ANTIGEN Routine 04/30/2019 10:54 AM PLASTICS DESIGN ENGINEER RENAL FUNCTION PANEL Routine 04/30/2019 10:54 AM PLASTICS DESIGN ENGINEER PROTEIN / CREATININE RATIO, URINE Routine 04/11/2019 1:09 PM PLASTICS DESIGN ENGINEER CBC AND DIFFERENTIAL Routine 04/11/2019 1:09 PM PLASTICS DESIGN ENGINEER RENAL FUNCTION PANEL Routine 04/11/2019 1:09 PM PLASTICS DESIGN ENGINEER PROTEIN / CREATININE RATIO, URINE Routine 12/06/2018 [...] (ABNORMAL) Renal Function Panel (04/30/2019 10:54 AM PLASTICS DESIGN ENGINEER) Glucose 268(H) 65 - 99 mg/dL [facility] [...] 5.1 g/dL [facility] 04/30/2019 10:5 4 AM PLASTICS DESIGN ENGINEER 04/30/2019 10:55 AM PLASTICS DESIGN ENGINEER Narrative Resulting Agency Comment Performing Organization Information: Site ID: [place] Name: [facility] Address: [address] [address] Director: Jadiel Winslow D.O., MPH Mohsen Mann MD LAB BLOOD ORDERABLES Fi nal Result [facility] * Hepatitis C antibody (04/30/2019 10:54 AM PLASTICS DESIGN ENGINEER) Hepatitis C Antibody NON-REACTI VE NON-REACT JUICE [facility] Signal/Cutoff 0.08 <1.00 [facility] Comment: HCV antibody was non-reactive. There is no laboratory evidence of HCV infection. In most cases, no further action is required. However, if recent HCV exposure is suspected, a test for HCV RNA (test code 44763) is suggested. For additional information please refer to http://education.[employer] [place]/faq/FCH21g1 (This link is being provided for informational/ educational purposes only.) 04/30/2019 10:5 4 AM PLASTICS DESIGN ENGINEER 04/30/2019 10:55 AM PLASTICS DESIGN ENGINEER Narrative Resulting Agency Comment Performing Organization Information: Site ID: [place] Name: [facility] Address: [address] [place] [id number] Director: Jadiel Winslow D.O., MPH Mohsen Mann MD LAB BLOOD ORDERABLES Fi nal Result Performing Organization Address [facility] de Phone Number [facility] * Hepatitis B core antibody, IgM (04/30/2019 10:54 AM PLASTICS DESIGN ENGINEER) Hep B Core IgM NON-REACTI VE NON-REACTI VE [facility] 04/30/2019 10:5 4 AM PLASTICS DESIGN ENGINEER 04/30/2019 10:55 AM PLASTICS DESIGN ENGINEER Narrative Resulting Agency Comment Performing Organization Information: Site ID: [place] Name: [facility] Address: [address] [place] [phone] Director: Jadiel Winslow D.O., MPH Mohsen Mann MD LAB BLOOD ORDERABLES Fi nal Result Performing Organization Address [facility] Phone Number [facility] * Hepatitis B Surface Antigen (04/30/2019 10:54 AM PLASTICS DESIGN ENGINEER) Hep B Surface Antigen NON-REACTIVE NON-REACT JUICE [facility] Confirmation CANCELED [facility] Comment:Result canceled by kavon lacy. 04/30/2019 10:5 4 AM PLASTICS DESIGN ENGINEER 04/30/2019 10:55 AM PLASTICS DESIGN ENGINEER Narrative Resulting Agency Comment Performing Organization Information: Site ID: [place] Name: [facility] Address: [address] [place] [phone] Director: Jadiel Winslow D.O., MPH Mohsen Mann MD LAB BLOOD ORDERABLES Fi nal Result Performing Organization Address [facility] de Phone Number [facility] * Hepatitis A antibody, IgM (04/30/2019 10:54 AM PLASTICS DESIGN ENGINEER) Hep A IgM NON-REACTI VE NON-REACTI VE [facility] Comment: For additional information, please refer to http://education.[employer]/faq/FFI591 (This link is being provided for informational/ educational purposes only.) 04/30/2019 10:5 4 AM PLASTICS DESIGN ENGINEER 04/30/2019 10:55 AM PLASTICS DESIGN ENGINEER Narrative Resulting Agency Comment Performing Organization Information: Site ID: [place] Name: [facility] Address: [address] [place] [phone] Director: Jadiel Winslow D.O. MPH Mohsen Mann MD LAB BLOOD ORDERABLES Fi nal Result Performing Organization Address [facility] de Phone Number [facility] * (ABNORMAL) Protein, Total, Random Urine w/Creatinine (Protein/Creat Ratio) (04/11/2019 1:09 PM PLASTICS DESIGN ENGINEER) Creatinine, Ur 58 20 - 275 mg/dL [facility] Urine Protein/Creati nine Ratio 3,397(H) 21 - 161 mg/g creat [facility] Protein/Creati nine Ratio, Urine 3.397(H) 0.021 - 0.161 mg/mg creat [facility] Protein Urine Random 197(H) 5 - 24 mg/dL [facility] 04/11/2019 1:09 PM PLASTICS DESIGN ENGINEER 04/11/2019 1:10 PM PLASTICS DESIGN ENGINEER Narrative Resulting Agency Comment Performing Organization Information: Site ID: [place] Name: [facility] Address: [address] [place] [phone] Director: Jadiel Winslow D.O. MPH Yuliana Maradiaga NP LAB URINE ORDERABLES Final Resul t Performing Organization Address [facility] de Phone Number [facility] * (ABNORMAL) CBC and Differential (04/11/2019 1:09 PM PLASTICS DESIGN ENGINEER) WBC 9.3 3.8 - 10.8 Thousand/ uL [...] by t he ancillary. 04/11/2019 1:09 PM PLASTICS DESIGN ENGINEER 04/11/2019 1:10 PM PLASTICS DESIGN ENGINEER Narrative Resulting Agency Comment Performing Organization Information: Site ID: [place] Name: [facility] Address: [address] [place] [address] Director: Jadiel Winslow D.O., MPH Yuliana Maradiaga PAN SHAKER LAB BLOOD ORDERABLES Final Resul t Performing Organization Address City/[facility]/ZIP Co de Phone Number [facility] * (ABNORMAL) Renal Function Panel (04/11/2019 1:09 PM PLASTICS DESIGN ENGINEER) Glucose 228(H) 65 - 99 mg/dL [facility] [...] - 5.1 g/dL [facility] 04/11/2019 1:09 PM PLASTICS DESIGN ENGINEER 04/11/2019 1:10 PM PLASTICS DESIGN ENGINEER Narrative Resulting Agency Comment Performing Organization Information: Site ID: [place] Name: [facility] Address: [facility] [place] [address] Director: Jadiel Winslow D.O., MPH us Yuliana Maradiaga NP LAB BLOOD ORDERABLES Final Resul t Performing Organization Address City/[facility]/ZIP Co de Phone Number [facility] [...] D, (D2,D3), LC/MS/MS is recommended: order code 99999 (patients >2yrs). For more information on this test, go to: http://education.[employer] [place]/faq/YGI194 (This link is being provided for informational/educational purposes only.) 12/06/2018 8:34 AM CDT 12/06/2018 8:35 AM CDT Narrative Resulting Agency Comment Performing Organization Information: Site ID: [facility] [facility] Address: [address] [place] [phone] Director: Jadiel Winslow D.O., MPH Tl Lawson [...] Performing Organization Information: Site ID: [place] Name: [facility] Address: [address] [place] [phone] Director: Jadiel Winslow D.O., MPH Tl L Renny PAN SHAKER LAB BLOOD ORDERABLES Final Result Performing Organization Address [facility] Co de Phone Number [facility] [...] Performing Organization Information: Site ID: [place] Name: [facility] Address: [address] [place] [address] Director: Jadiel Winslow D.O., MPH Tl Lawson PAN SHAKER LAB URINE ORDERABLES Final Result Performing Organization Address [facility] de Phone Number [facility] ST[facility] [...] Performing Organization Information: Site ID: [place] Name: [facility] Address: [address] [place] [address] Director: Jadiel Winslow D.O. MPH Tl Lawson PAN SHAKER LAB BLOOD ORDERABLES Final Result Performing Organization Address City/[facility]/ZIP Co de Phone Number CYNDIE STJuan [...] Performing Organization Information: Site ID: [place] Name: [facility] Address: [address] [address] Director: Jadiel Winslow D.O., MPH Tl Lawson PAN SHAKER LAB BLOOD ORDERABLES Final Result Performing Organization Address City/[facility]/ZIP Co de Phone Number CYNDIE STJuan [facility] documented in this encounter Visit Diagnoses Diagnosis Chronic kidney disease stage 4 (HCC) documented in this encounter Care Teams Wellness Guide Relationship Specialty Start Date End Date Herber Hussein MD [address] [place] [address] PCP - General Family Medicine 07/14/18 documented as of this encounter
--- OUTSIDE RECORDS SUMMARY | 2024-11-26 21:37 | XMS_ITS | Encounter Summary ---
Author Organization [facility] Address [address] [place] [address] Phone Care Team Providers Care Supervisor Sulfuric Acid Plant Name Role Phone Herber Hussein MD Primary Care Provider [phone] Encounter Details Date Type Department Care Team (Late st Contact Info) Description 11/08/2018 Orders Only Bobby [facility] [address] [place] [address] Sherry Lau MA [address] [place] [address] Chronic kidney disease stage 4 [...] Performing Organization Information: Site ID: [place] Name: [facility] Address: [address] [facility] [place] [address] Director: Jadiel Winslow D.O., MPH us Mohsen [...] Performing Organization Information: Site ID: [place] Name: [employer] Address: [address] [place] [address] Director: Jadiel Winslow D.O., MPH Mohsen Mann [...] Performing Organization Information: Site ID: [place] Name: [employer] Address: [address] [address] Director: Jadiel Winslow D.O., MPH us Mohsen Mann MD LAB BLOOD ORDERABLES Fi nal Result CYNDIE STJuan AGEE documented in this encounter Visit Diagnoses Diagnosis Chronic kidney disease stage 4 (HCC) Essential hypertension documented in this encounter Care Teams Supervisor Sulfuric Acid Plant Relationship Specialty Start Date End Date Herber Hussein MD [address] [place] [address] PCP - General Family Medicine 07/14/18 documented as of this encounter
--- OUTSIDE RECORDS SUMMARY | 2024-11-26 21:37 | XMS_ITS | Encounter Summary ---
Author Organization [facility] Address [address] [place] [address] Phone Care Team Providers Care Wood Floor Layer Name Role Phone Herber Hussein MD Primary Care Provider [phone] Encounter Details Date Type Department Care Team (Late st Contact Info) Description 08/24/2018 Orders Only [facility] [address] [place] [address] Mohsen Mann MD [address] [facility] [address] [facility] [address] [place] [address] Chronic kidney disease stage 4 [...] (HCC) documented in this encounter Care Teams Wood Floor Layer Relationship Specialty Start Date End Date Herber Hussein MD [address] [place] [address] PCP - General Family Medicine 07/14/18 documented as of this encounter
--- OUTSIDE RECORDS SUMMARY | 2024-11-26 21:37 | XMS_ITS | Encounter Summary ---
Author Organization [facility] Address [address] [place] [address] Phone Care Team Providers Care Work Order Detailer Name Role Phone Herber Hussein MD Primary Care Provider [phone] Reason for Visit * Reason Comments Med Refill Encounter Details Date Type Department Care Team (Late st Contact Info) Description 01/30/2021 Refill [place] [address] [place] [address] Mohsen Mann MD [address] [place] [address] Social History Tobacco Use Types [...] filedocumented in this encounter Care Teams Work Order Detailer Relationship Specialty Start Date End Date Herber Hussein MD [address] [place] [address] PCP - General Family Medicine 07/14/18 documented as of this encounter
--- OUTSIDE RECORDS SUMMARY | 2024-11-26 21:37 | XMS_ITS | Encounter Summary ---
Author Organization [facility] Address [address] [place] [address] Phone Care Team Providers Care Dairy Nutrition Consultant Name Role Phone Herber Hussein MD Primary Care Provider [phone] Reason for Visit * Reason Comments Med Refill Encounter Details Date Type Department Care Team (Late st Contact Info) Description 11/23/2021 Refill [facility] [address] [place] [address] Mohsen Mann MD [address] [place] [address] Social History Tobacco Use Types [...] on filedocumented in this encounter Care Teams Dairy Nutrition Consultant Relationship Specialty Start Date End Date Herber Hussein MD [address] [place] [address] PCP - General Family Medicine 07/14/18 documented as of this encounter
--- OUTSIDE RECORDS SUMMARY | 2024-11-26 21:37 | XMS_ITS | Encounter Summary ---
Author Organization [facility] Address [address] [place] [address] Phone Care Team Providers Care Infant Caregiver Name Role Phone Herber Hussein MD Primary Care Provider [phone] Reason for Visit * Reason Comments Med Refill Encounter Details Date Type Department Care Team (Late st Contact Info) Description 10/29/2020 Refill [facility] [address] [place] [address] Mohsen Mann MD [address] [place] [address] Social History Tobacco Use Types [...] on filedocumented in this encounter Care Teams Infant Caregiver Relationship Specialty Start Date End Date Herber Hussein MD [address] [place] [address] PCP - General Family Medicine 07/14/18 documented as of this encounter
--- OUTSIDE RECORDS SUMMARY | 2024-11-26 21:37 | XMS_ITS | Clinical Summary ---
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 05/25/2018 Acute nontraumatic kidney injury 05/25/2018 Essential hypertension 05/25/2018 Type 2 diabetes mellitus 05/25/2018 IgA nephropathy 05/25/2018 Thromboembolism of vein 06/12/2017 Tobacco use 04/26/2017 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 Methamphetamine abuse 04/01/2017 Splenic infarction 04/01/2017 Encounters Date Type Department Care Team Description 11/26/2024 [facility] [address] [place] [address] Daisy Lindsay NP Heart failure; End stage renal disease; Dependence on renal dialysis 11/21/2024 Orders Only [facility] [address] [place] [address] Bee Chavarria MD 11/21/2024 [facility] [address] [place] [address] Ana Viramontes NP End stage renal disease; Dependence on renal dialysis 11/14/2024 Orders Only [facility] [address] [place] [address] Bee Chavarria MD 11/12/2024 Treatment [facility] [address] [place] [address] Ana Viramontes NP End stage renal disease; Dependence on renal dialysis 11/07/2024 Orders Only [facility] [address] [place] [address] Bee Chavarria MD 11/05/2024 [facility], [facility] [address] [place] [address] Bee Chavarria MD 11/05/2024 TCM in Dialysis Clinic [address] [place] [address], [facility] [address] [place] [address] Daisy Lindsay NP 11/02/2024 Telephone [facility], [facility] [address] [place] [address] Bee Chavarria MD 10/26/[address] [place] [address] [place] [address] Daisy Lindsay NP Malignant neoplasm of colon; Type 2 diabetes mellitus with diabetic chronic kidney disease; Bipolar disorder; Chronic obstructive pulmonary disease; Osteomyelitis; Secondary hyperparathyroidism of renal origin; End stage renal disease; Dependence on renal dialysis 10/24/2024 [facility], [facility] [address] [place] [address] Bee Chavarria MD 10/19/2024 [facility], [facility] [address] [place] [address] Bee Chavarria MD 10/10/2024 [facility], [facility] [address] [place] [address] Bee Chavarria MD 10/10/[address] [place] [address], [facility] [address] [place] [address] Bee Chavarria MD End stage renal disease; Dependence on renal dialysis 10/05/2024 [facility], [facility] [address] [place] [address] Bee Chavarria MD 10/05/2024 [facility] [address] [place] [address] Daisy Lindsay NP 10/04/2024 Telephone [facility], [facility] [address] [place] [address] Yuliana Maradiaga NP 09/26/2024 Orders Only [facility], [facility] [address] [place] [address] Bee Chavarria MD 09/26/[address] [place] [address], [facility] [address] [place] [address] Daisy Lindsay NP End stage renal disease; Dependence on renal dialysis 09/19/2024 Orders Only [facility], [facility] [address] [place] [address] Bee Chavarria MD 09/19/[address] [place] [address], [facility] [address] [place] [address] Daisy Lindsay NP End stage renal disease; Dependence on renal dialysis 09/12/2024 Orders Only [facility], [facility] [address] [place] [address] Bee Chavarria MD 09/10/[address] [place] [address], [facility] [address] [place] [address] Ana Viramontes NP End stage renal disease; Dependence on renal dialysis 09/05/2024 [facility], [facility] [address] [place] [address] Bee Chavarria MD 09/05/[address] [place], [place] [address]rology [facility], [facility] [address] [place] [address] Bee Chavarria MD End stage renal disease; Dependence on renal dialysis 08/29/2024 Orders Only [facility] [address] [place] [address] Bee Chavarria MD 08/27/2024 Treatment [facility], [facility] [address] [place] [address] Ana Viramontes, [place] End stage renal disease; [...] Urea Reduction 74 65 - 80 % [facility] 11/21/2024 11/22/2024 12: 02 PM CDT Narrative [facility] - 11/22/2024 Unless otherwise specified, test(s) performed at: [facility] [address] [place] [address] SWAGE TENDER: Michael Knox M.D. For any questions, please call customer service at FREQUENCY:MONTHLY Resulting Agency Comment Specimen source: Plasma us Bee Chavarria MD LAB BLOOD ORDERABLES Final Re sult [facility] See order comments or contact performing lab Unknown, [place] * POST CHEMISTRY (11/21/2024) Only the most recent of3 resultswithin the time period is included. [facility] BUN Post Dialysis 11 6 - 19 mg/dL [facility] 11/21/2024 11/22/2024 12: 02 PM CDT Narrative [facility] - 11/22/2024 Unless otherwise specified, test(s) performed at: [facility] [address] [place] [address] SWAGE TENDER: Michael Knox M.D. For any questions, please call customer service at FREQUENCY:MONTHLY Resulting Agency Comment Specimen source: Plasma Bee Chavarria MD LAB BLOOD ORDERABLES Final Re sult Performing Organization Address [facility] Co de Phone Number [facility] See order comments or contact performing lab Unknown, [place] * TRACE ELEMENTS (11/21/2024) [facility] Aluminum <5 0 - 10 mcg/L [facility] Comment: This test was developed and its performance characteristics determined by [facility] It has not been cleared or approved by the FDA. The laboratory is regulated under CLIA as qualified to perform high complexity testing. This test is used for clinical purposes. It should not be regarded as investigational or for research. 11/21/2024 11/22/2024 10: [address] [facility] - 11/22/2024 Unless otherwise specified, test(s) performed at: [facility] [address] [place] [address] SWAGE TENDER: Michael Knox M.D. For any questions, please call customer service at FREQUENCY:MONTHLY Resulting Agency Comment Specimen source: Serum Bee Chavarria MD LAB BLOOD ORDERABLES Final Re sult Performing Organization Address [facility] Co de Phone Number [facility] See order comments or contact performing lab Unknown, [place] * (ABNORMAL) HEMATOLOGY (11/21/2024) Only the most recent of14 resultswithin the time period is included. [facility] Neutrophils 68.9 40.0 - 75.0 % Spectra [...] 11/22/2024 Unless otherwise specified, test(s) performed at: [facility] [address] [place] [address] SWAGE TENDER: Michael Knox M.D. For any questions, please call customer service at FREQUENCY:MONTHLY Resulting Agency Comment Specimen source: Blood us Bee Chavarria MD LAB BLOOD ORDERABLES Final Re sult [facility] See order comments or contact performing lab Unknown, [place] * (ABNORMAL) StraighterLine Chemistry (11/21/2024) Only the most recent of5 [...] 11/22/2024 Unless otherwise specified, test(s) performed at: [facility] [address] [place] [address] SWAGE TENDER: Michael Knox M.D. For any questions, please call customer service at FREQUENCY:MONTHLY Resulting Agency Comment Specimen source: Serum us Bee Chavarria MD LAB BLOOD ORDERABLES Edited R esult - Final [facility] See order comments or contact performing lab Unknown, [place] * [facility] Lab Results (11/21/2024) Only the most recent of3 resultswithin the time period is included. WSTDKT/V 2.4 [facility] spKt/V (Daugirdas II) 1.50 [facility] eKdrt/V 1.21 [facility] eKt/V ([place]) 1.24 [facility] eKt/V Gotch 1.21 Knowledg e Center spKt/V Gotch 1.52 [facility] eNPCR 0.70 [facility] nPCR_HD 0.77 [facility] PCR 42.05 [facility] 11/21/2024 11/21/2024 [facility] Ordering Provider LAB BLOOD ORDERABLES Final Result [facility] Center Contact Performing lab Unknown, [place] * (ABNORMAL) SPECIAL CHEMISTRY (02/22/2024) Hemoglobin A1C 6.1(H) 4.8 - 5.9 % [facility] 02/22/2024 02/23/2024 11: 16 AM VP & GENERAL COUNSEL Narrative [facility] - 02/23/2024 Unless otherwise specified, test(s) performed at: [facility] [address] [place] [address] SWAGE TENDER: Michael Knox M.D. For any questions, please call customer service at FREQUENCY:MONTHLY Resulting Agency Comment Specimen source: Blood Bee Chavarria MD LAB BLOOD BANK TEST ORDERABLE S Final Result [facility] See order comments or contact performing lab Unknown, [place] from Last 3 Months or Most Recently Relevant to Health Maintenance Insurance Medicaid [place] ([id number]) Medicare Care Teams Driver Supervisor Relationship Specialty Start Date End Date Herber Hussein MD [address] [place] [address] PCP - General Family Medicine 07/14/18
--- OUTSIDE RECORDS SUMMARY | 2024-11-26 21:37 | XMS_ITS | Encounter Summary ---
Author Organization [facility] Address [address] [place] [address] Phone Care Team Providers Care Spring Inspector Name Role Phone Herber Hussein MD Primary Care Provider [phone] Reason for Visit * Reason Comments Med Refill Encounter Details Date Type Department Care Team (Late st Contact Info) Description 08/21/2021 Refill [facility] [address] [place] [address] Mohsen Mann MD [address] [place] [address] Social History Tobacco Use Types [...] on filedocumented in this encounter Care Teams Spring Inspector Relationship Specialty Start Date End Date Herber Hussein MD [address] [place] [address] PCP - General Family Medicine 07/14/18 documented as of this encounter
[2024-11-26 21:46] LABS: PCP Screen Urine Negative (Negative)
[2024-11-27] VITALS: BP 158/72; PULSE 101; RESP 16; TEMP 36.8; O2SAT 94
[2024-11-27 04:00] VITALS: BP 148/71; PULSE 93; RESP 17; TEMP 36.8; O2SAT 96
[2024-11-27 05:37] LABS: Hematocrit 24.4 % (36-47); Hemoglobin 7.70 g/dL (11.27-16.99); Mean Corpuscular HGB Conc 31.6 g/dL (30-55); Mean Corpuscular Hemoglobin 34.2 pg (27-33); Mean Corpuscular Volume 108.4 fl (85-98); Nucleated Red Blood Cells % 0 %; Platelet Count 160 10^3/cmm (157-399); Red Blood Count 2.25 10^6/uL (3.85-5.65); White Blood Count 4.52 10^3/uL (3.29-11.43)
[2024-11-27 07:26] VITALS: BP 177/75; PULSE 92; RESP 19; TEMP 37; O2SAT 92
[2024-11-27] MEDS: APIXABAN 2.5 MG TABLET PO (07:36)
[2024-11-27 08:22] VITALS: PULSE 99; RESP 18; O2SAT 99
[2024-11-27 11:07] VITALS: BP 158/69; PULSE 107; RESP 18; TEMP 36.9; O2SAT 97
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
[2024-11-27 11:36] VITALS: O2SAT 100
--- NOTE | 2024-11-27 11:41 | PC.NURSE ---
D/C pending ride home.
[2024-11-27 22:43] LABS: Bacillus cereus group Not Detected (NOT DETECT); Bacillus subtillis group Not Detected (NOT DETECT); Corynebacterium Not Detected (NOT DETECT); Cutibacterium acnes (P.acnes) Not Detected (NOT DETECT); Enterococcus faecalis Not Detected (NOT DETECT); Enterococcus faecium Not Detected (NOT DETECT); Listeria Not Detected (NOT DETECT); Micrococcus Detected (NOT DETECT); Pan Candida Not Detected (NOT DETECT); Pan Gram-Negative Not Detected (NOT DETECT); Staphylococcus epidermidis Not Detected (NOT DETECT); Staphylococcus lugdunensis Not Detected (NOT DETECT); Staphylococcus species Not Detected (NOT DETECT); Streptococcus anginosus group Not Detected (NOT DETECT); Streptococcus pyogenes Not Detected (NOT DETECT); Streptococcus species Not Detected (NOT DETECT)
== END 2024-11-27 13:17 | disposition home or self-care (01) ==
LOC: ER 10:55 → ER IP 14:03 → MEDSURG 21:35
PROVIDERS: Admitting Provider Internal Medicine; Emergency Provider Family Medicine; PCP Family Medicine; Visit Provider Internal Medicine
DX: R41.82 Altered mental status, unspecified (principal); N18.6 End stage renal disease; Z99.2 Dependence on renal dialysis; K21.9 Gastro-esophageal reflux disease without esophagitis; Z79.01 Long term (current) use of anticoagulants; E11.9 Type 2 diabetes mellitus without complications; Z86.718 Personal history of other venous thrombosis and embolism; C21.1 Malignant neoplasm of anal canal; R00.0 Tachycardia, unspecified; F17.210 Nicotine dependence, cigarettes, uncomplicated
CPT/HCPCS: 36415; 36600; 70450; 71045; 80051; 80053; 80306; 81001; 82140; 82330; 82805; 83605; 83690; 83735; 83880; 84484; 85025; 86850; 86900; 87040; 87150; 87205; 93005; 93880; 94640; 99285; G0378; J7613; J9999

== ENCOUNTER 2025-02-06 09:59 | Inpatient (IN) | payer MEDICARE, MEDICAID, SELFPAY ==
[2025-02-06] VITALS (18 sets, daily range): BP systolic 116–156; BP diastolic 58–80; PULSE 83–110; RESP 17–25; TEMP 36.3–37.4; O2SAT 87–97; BMI 25.9
--- NOTE | 2025-02-06 10:20 | XRR_ITS ---
PROCEDURE INFORMATION: Exam: XR Chest Exam date and time: 02/06/2025 10:40 AM Age: 49 years old Clinical indication: Shortness of breath; Prior surgery; Surgery date: 6+ months; Surgery type: Hyst; SOB and cp since early this morning. PT having dizzy spells. HX of anal cancer TECHNIQUE: Imaging protocol: Radiologic exam of the chest. Views: 1 view. COMPARISON: CT angio chest PE protcl [id number] 11/17/2024 6:41 PM FINDINGS: Tubes, catheters and devices: Infusion catheter tip mid SVC. Lungs: Hazy bilateral lower lobe infiltrates. Pleural spaces: Unremarkable. No pleural effusion. No pneumothorax. Heart/Mediastinum: Unremarkable. No cardiomegaly. Bones/joints: Unremarkable. XR/XR chest 1V portable [id number] IMPRESSION: Hazy bilateral lower lobe infiltrates.
--- NOTE | 2025-02-06 10:35 | W.ED.EXTPRO ---
HPI - Extremity Problem General: Chief complaint: Extremity Injury, Upper Stated complaint: Need Antibotics through IV Doc Reffal Time Seen by Provider: 02/06/25 10:21 History of Present Illness: 49-year-old female with a history of end-stage renal disease on dialysis, DVT, chronic anticoagulation on Eliquis, diabetes, tachycardia congestive heart failure, who presents to the emergency room from dialysis with shortness of breath, cough, fevers. Body aches. Altered mental status. No focal motor deficits. She says she did complete dialysis. No lower extremity swelling. No abdominal pain. No nausea or vomiting Related Data Home Medications ?Medication ?Instructions ?Recorded ?Confirmed pantoprazole 40 mg tablet,delayed 40 mg PO BID 06/19/19 02/06/25 release diphenhydramine HCl 25 mg capsule 25 mg PO TID PRN Itching 04/01/20 02/06/25 (Benadryl) ropinirole 0.25 mg tablet 0.25 mg PO BEDTIME 01/21/23 02/06/25 vit B,C-folic ac 800 mcg-zinc 12.5 1 tab PO DAILY 01/21/23 02/06/25 mg-selen-D3 2,000 unit-vit E tablet (RenaPlex-D) amlodipine 10 mg tablet 10 mg PO DAILY 03/22/24 02/06/25 apixaban 2.5 mg tablet (Eliquis) 2.5 mg PO BID 11/26/24 02/06/25 scopolamine base 1 mg over 3 days 1 patch topical Q72H PRN Nausea 11/26/24 02/06/25 transdermal patch acetaminophen 500 mg tablet 500 mg PO QID PRN Pain 02/06/25 02/06/25 albuterol sulfate 90 mcg/actuation 2 inh inhalation Q6H PRN shortness 02/06/25 02/06/25 aerosol inhaler of breath bumetanide 2 mg tablet See Rx Instructions .Route .COMPLEX 02/06/25 02/06/25 carvedilol 25 mg tablet 25 mg PO BID 02/06/25 02/06/25 hydralazine 25 mg tablet 25 mg PO TID 02/06/25 02/06/25 metoclopramide HCl 5 mg tablet 5 mg PO TID 02/06/25 02/06/25 (Reglan) promethazine 25 mg tablet 25 mg PO Q4H PRN Nausea 02/06/25 02/06/25 sevelamer carbonate 800 mg tablet 1,600 mg PO TID 02/06/25 02/06/25 sodium bicarbonate 650 mg tablet 650 mg PO TID PRN Indigestion 02/06/25 02/06/25 Previous Rx's ?Medication ?Instructions ?Recorded citalopram 20 mg tablet 10 mg (1/2 x 20 mg) PO DAILY #30 11/27/24 tabs melatonin 10 mg capsule 5 mg (1/2 x 10 mg) PO BEDTIME #30 11/27/24 caps Allergies Allergy/AdvReac Type Severity Reaction Status Date / Time sulfamethoxazole (From Allergy Severe ALGY-Rash Verified 09/18/24 10:58 Sulfamethoxazole-Trimethoprim) trimethoprim (From Allergy Severe ALGY-Rash Verified 09/18/24 10:58 Sulfamethoxazole-Trimethoprim) adhesive tape Allergy Unknown blisters Verified 09/18/24 10:58 Cephalosporins Allergy Unknown unknown Verified 09/18/24 10:58 doxycycline Allergy ADR-Vomitin Verified 09/18/24 10:58 g latex Allergy blisters Verified 09/18/24 10:58 Sulfa (Sulfonamide Allergy Unknown Verified 10/16/24 07:58 Antibiotics) Review of Systems Narrative: Constitutional symptoms: Negative except as documented in HPI. Skin symptoms: Negative except as documented in HPI. Eye symptoms: Negative except as documented in HPI. ENMT symptoms: Negative except as documented in HPI. Respiratory symptoms: Negative except as documented in HPI. Cardiovascular symptoms: Negative except as documented in HPI. Gastrointestinal symptoms: Negative except as documented in HPI. Genitourinary symptoms: Negative except as documented in HPI. Musculoskeletal symptoms: Negative except as documented in HPI. Neurologic symptoms: Negative except as documented in HPI. Psychiatric symptoms: Negative except as documented in HPI. Endocrine symptoms: Negative except as documented in HPI. PFSH ED PFSH: Medical History (Updated 02/06/25 @ 13:44 by TREMAINE Hillman, P[employer]AGE [employer]ER) Tachycardia Diabetes Deep vein thrombosis (DVT) during Chronic anticoagulation Squamous cell carcinoma of anal canal Diabetes mellitus End-stage renal disease Surgical History Status post surgery (05/19/20) Removal of peritoneal dialysis catheter Port-A-Cath in place S/P hemodialysis catheter insertion (01/09/20) Removed 11/18/2020 Peritoneal dialysis status H/O colonoscopy H/O hand surgery History of hip surgery History of hysterectomy Family History Other Cancer Diabetes Denies family history of Anesthesia complication Bleeding disorder Social History Smoking and tobacco/nicotine status: current every day tobacco/nicotine user cigarettes Packs smoked per day: 0.25 Alcohol intake: never Substance/Drug Use: former Date of last use: Greater than 8 years ago as of 11/26/2024 Former substance use details: Marijuana and then switched to methamphetamines but stopped greater than 8 Additional social history: CODE STATUS discussed and patient wants DNR on 11/26/2024 with Brian Philippe MD Household members: family Marital status: Single Current occupational status: disabled Physical Exam Narrative: EXAM NARRATIVE: General: Alert, no acute distress. Skin: Warm, dry. Head: Normocephalic, atraumatic. Neck: Supple, trachea midline. Eye: Extraocular movements are intact. Ears, nose, mouth and throat: mucosa moist. Cardiovascular: Regular, Normal peripheral perfusion. Respiratory: Lungs are clear to auscultation, respirations are non-labored, breath sounds are equal, Symmetrical chest wall expansion. Gastrointestinal: Soft, Nontender, Non distended Musculoskeletal: Normal ROM, no deformity. Neurological: Alert and oriented, No focal neurological deficit observed. Psychiatric: Cooperative, appropriate mood & affect. Course Vital Signs: Vital signs: Vital Signs Temperature 99.3 F 02/06/25 10:01 Pulse Rate 109 H 02/06/25 13:28 Respiratory Rate 25 H 02/06/25 10:01 Blood Pressure 154/79 02/06/25 13:28 Pulse Oximetry 92 02/06/25 13:28 Oxygen Delivery Me thod Nasal Cannula 02/06/25 13:28 Oxygen Flow Rate 2 02/06/25 13:28 MDM - Extremity (Nontraumatic) Medical Decision Making Medical decision making Patient's reason for coming to the emergency room: Shortness of breath, cough, fevers, body aches Social determinants: Patient is disabled. I reviewed the patient's medical record. 49-year-old female with a history of end-stage renal disease on dialysis, DVT, chronic anticoagulation on Eliquis, diabetes, tachycardia congestive heart failure, I reviewed the patient's current home meds Patient is on Eliquis. Alternate historians: None Differential diagnosis for patient with shortness of breath includes but is not limited to and based on the above HPI, review of systems and physical exam: Pneumonia. Bronchitis. Asthma or COPD with acute exacerbation. Acute coronary syndrome / LA. Pulmonary embolism. Anxiety. Congestive heart failure. Viral infections including influenza and Covid-19. Atrial fibrillation. Anxiety. Pleural effusion. Pneumothorax. Orders placed to evaluate differential diagnosis based on the above differential, HPI and physical exam Chest x-ray: Bilateral lower lobe infiltrates. This was reviewed and interpreted by myself the emergency room physician. I also reviewed the radiology report. Lab Review: Laboratory results were reviewed and interpreted by myself the emergency room physician. No leukocytosis. No anemia. Renal function is 16 and 2.5 for her BUN and creatinine which would be expected in this patient. Flu COVID and RSV are negative. Lactate is negative. Assessment of risk: Level of risk: This is a high risk patient. Dialysis. Anticoagulated. Multiple comorbidities. Hospitalization considerations: Patient is being admitted. She is hypoxemic with a possible pneumonia. Reexamination: Patient continues to require 2 L nasal cannula. Consultation: I spoke with Dr. Dr. Velazco who is on-call for the hospitalist service who agrees to admission. Assessment and plan: Pneumonia Hypoxemia End-stage renal disease on dialysis Chronic anticoagulation on Eliquis ? Patient was tachypneic and tachycardic. Also requiring oxygen. She does not have leukocytosis or lactic acidosis but I am going to treat her for sepsis empirically. Limited fluids as she is end-stage renal on dialysis. - 0.5 L normal saline bolus as above. -Broad-spectrum antibiotics were administered. Zyvox and meropenem -Sepsis quality measures. -Lactic acid with a reflex was ordered. -Blood cultures were ordered. ?I reevaluated the patient's volume status after sepsis fluids were given. -I discussed the patient with the hospitalist on-call who is admitting the patient. - Discussed findings and plan with patient. Answered any questions. - All laboratory values were reviewed and interpreted personally by myself, the ER physician - All imaging was reviewed and interpreted personally by myself, the ER physician. - Evaluation and treatment of this problem were appropriate in the emergency setting Critical Care: -I spent a total of 39 minutes of critical care time managing the patient, independent of any other practitioner. -The time involved in the performance of separately reportable procedures was not counted towards critical care time. Lab Data 02/06/25 10:27 02/06/25 10:27 Radiology Impressions Chest X-Ray 02/06/25 10:20 IMPRESSION: Hazy bilateral lower lobe infiltrates. Laboratory Results WBC 9.68 10^3/uL (3.29-11.43) 02/06/25 10:27 RBC 3.06 10^6/uL (3.85-5.65) L 02/06/25 10:27 Hgb 10.70 g/dL (11.27-16.99) L 02/06/25 10:27 Hct 34.1 % (36-47) L 02/06/25 10:27 MCV 111.4 fl (85-98) H 02/06/25 10:27 MCH 35.0 pg (27-33) H 02/06/25 10:27 MCHC 31.4 g/dL (30-55) 02/06/25 10:27 RDW 15.0 % (12.1-15.1) 02/06/25 10:27 Plt Count 156 10^3/cmm (157-399) L 02/06/25 10:27 MPV 9.8 fL (7.4-10.4) 02/06/25 10:27 Neut % (Auto) 85.1 % 02/06/25 10:27 Lymph % (Auto) 7.5 % 02/06/25 10:27 [place] % (Auto) 5.3 % 02/06/25 10:27 Eos % (Auto) 1.3 % 02/06/25 10:27 Baso % (Auto) 0.4 % 02/06/25 10:27 Neut # (Auto) 8.23 10^3/uL (1.8-7.7) H 02/06/25 10:27 Lymph # (Auto) 0.7 10^3/uL (0.8-4.8) L 02/06/25 10:27 [place] # (Auto) 0.5 10^3/uL (0.2-0.9) 02/06/25 10:27 Eos # (Auto) 0.1 10^3/uL (0.0-0.8) 02/06/25 10:27 Baso # (Auto) 0.0 10^3/uL (0.0-0.1) 02/06/25 10:27 Nucleated RBC % (auto) 0 % 02/06/25 10:27 Nucleated RBCs # 0.0 /100WBC 02/06/25 10:27 Specimen Type Arterial 02/06/25 10:43 Sample Site Brachial, left 02/06/25 10:43 ABG pH 7.51 (7.35-7.45) H 02/06/25 10:43 ABG pCO2 42.1 mmHg (35-45) 02/06/25 10:43 ABG pO2 54.3 mmHg (80.0-100.0) L 02/06/25 10:43 ABG PO2/FiO2 Ratio 226 02/06/25 10:43 ABG HCO3 33.8 mmol/L (22-26) H 02/06/25 10:43 ABG O2 Saturation 90.3 02/06/25 10:43 ABG Base Excess 9.9 mmol/L (-2.0-2.0) H 02/06/25 10:43 Benjamin Test N/a 02/06/25 10:43 A-a O2 Gradient 8.6 mmHg (5-10) 02/06/25 10:43 Hematocrit 30.8 % (37-47) L 02/06/25 10:43 Hgb O2 Saturation 88.1 % (95-100) L 02/06/25 10:43 Carboxyhemoglobin 2.4 %THgb (0.4-20.1) 02/06/25 10:43 Methemoglobin 0.1 % (0.4-1.5) L 02/06/25 10:43 Total Hemoglobin 10.0 g/dL (12-16) L 02/06/25 10:43 Sodium 139.0 mmol/L (131-143) 02/06/25 10:43 Potassium 3.7 mmol/L (3.5-5.0) 02/06/25 10:43 Glucose 174.0 mg/dL (70-115) H 02/06/25 10:43 Ionized Calcium 1.1 mmol/L (1.1-1.4) 02/06/25 10:43 O2 Delivery Device Nc 02/06/25 10:43 O2 Liters/Min 1.0 % 02/06/25 10:43 FiO2 24.0 % 02/06/25 10:43 Plastic Surgery Manager ID Amh 02/06/25 10:43 Sodium 139 mmol/L (136-145) 02/06/25 10:27 Potassium 3.7 mmol/L (3.5-5.1) 02/06/25 10:27 Chloride 93 mmol/L (98-107) L 02/06/25 10:27 Carbon Dioxide 33 mmol/L (22-29) H 02/06/25 10:27 Anion Gap 16.7 (5-19) 02/06/25 10:27 BUN 16 mg/dL (6-20) 02/06/25 10:27 Creatinine 2.5 mg/dL (0.5-0.9) H 02/06/25 10:27 GFR Calculation 20.4 mL/min (90-130) L 02/06/25 10:27 Glucose 164 mg/dL (65-115) H 02/06/25 10:27 Calculated Osmolality 293 mOsm/kg (285-295) 02/06/25 10:27 Lactic Acid 1.4 mmol/L (0.5-2.2) 02/06/25 10:27 Calcium 9.3 mg/dL (8.5-10.5) 02/06/25 10:27 Total Bilirubin 1.0 mg/dL (0.15-1.2) 02/06/25 10:27 AST 22 U/L (0-32) 02/06/25 10:27 ALT 16 U/L (0-33) 02/06/25 10:27 Alkaline Phosphatase 102 U/L (35-105) 02/06/25 10:27 Total Protein 7.2 g/dL (6.6-8.7) 02/06/25 10:27 Albumin 4.7 g/dL (3.5-5.2) 02/06/25 10:27 Globulin 2.5 g/dL (1.3-4.6) 02/06/25 10:27 Procalcitonin 0.35 ng/mL (0-0.5) 02/06/25 10:27 Urine Color Yellow (Yellow) 02/06/25 13:25 Urine Appearance Clear (CLEAR) 02/06/25 13:25 Urine pH >=9.0 (5-7) A 02/06/25 13:25 Ur Specific [place] 1.013 (1.005-1.030) 02/06/25 13:25 Urine Protein 3+ (Negative) A 02/06/25 13:25 Urine Glucose (UA) 1+ (Normal) H 02/06/25 13:25 Urine Ketones Trace (Negative) 02/06/25 13:25 Urine Blood Negative (Negative) 02/06/25 13:25 Urine Nitrate Negative (Negative) 02/06/25 13:25 Urine Bilirubin Negative (Negative) 02/06/25 13:25 Urine Urobilinogen 0.2 mg/dL (Negative) 02/06/25 13:25 Ur Leukocyte Esterase Negative (Negative) 02/06/25 13:25 Urine RBC 0-2 /hpf (0-2) 02/06/25 13:25 Urine WBC 0-5 /hpf (0-5) 02/06/25 13:25 Ur Squamous Epith Cells 0-5 /hpf (0-5) 02/06/25 13:25 Amorphous Sediment Not Reportable 02/06/25 13:25 Urine Bacteria None seen /hpf (NONE) 02/06/25 13:25 Hyaline Casts 2.05 /lpf 02/06/25 13:25 Influenza A (PCR) Negative (Negative) 02/06/25 11:39 Influenza Type B (PCR) Negative (Negative) 02/06/25 11:39 RSV (PCR) Negative (Negative) 02/06/25 11:39 SARS-CoV-2 (PCR) Negative (Negative) 02/06/25 11:39 All radiology interpretation(s) finalized by discharge Discharge Plan Discharge Patient Disposition: Admitted As Inpatient Clinical Impression: Pneumonia, Hypoxemia, End stage renal disease on dialysis Condition: Stable Coding Level of Care Code ED Flight Operations Coordinator for Chuy Fitch
[2025-02-06 10:36] LABS: Hematocrit 34.1 % (36-47); Hemoglobin 10.70 g/dL (11.27-16.99); Mean Corpuscular HGB Conc 31.4 g/dL (30-55); Mean Corpuscular Hemoglobin 35.0 pg (27-33); Mean Corpuscular Volume 111.4 fl (85-98); Nucleated Red Blood Cells % 0 %; Platelet Count 156 10^3/cmm (157-399); Red Blood Count 3.06 10^6/uL (3.85-5.65); White Blood Count 9.68 10^3/uL (3.29-11.43)
[2025-02-06 10:55] LABS: ABG PCO2 42.1 mmHg (35-45); ABG PH Result 7.51 (7.35-7.45); Alveolar-Arterial Oxygen Gradi 8.6 mmHg (5-10); Arterial Blood Gas Hematocrit 30.8 % (37-47); Blood Gas LPM 1.0 %; Blood Gas Operator Identificat AMH; Blood Gas Sample Site Brachial, left; Blood Gas Sample Type Arterial; Carboxyhemoglobin 2.4 %THgb (0.4-20.1); Glucose Level-ABG 174.0 mg/dL (70-115); HCO3 ABG 33.8 mmol/L (22-26); Ionized Calcium Level - ABG 1.1 mmol/L (1.1-1.4); Methemoglobin 0.1 % (0.4-1.5); Oxygen Saturation ABG 90.3; PO2 ABG 54.3 mmHg (80.0-100.0); PO2 FiO2 Ratio Arterial Blood 226; Potassium Level - ABG 3.7 mmol/L (3.5-5.0); Sodium Level - ABG 139.0 mmol/L (131-143)
[2025-02-06 10:57] LABS: Alanine Aminotransferase 16 U/L (0-33); Albumin Level 4.7 g/dL (3.5-5.2); Alkaline Phosphatase 102 U/L (35-105); Aspartate Amino Transferase 22 U/L (0-32); Blood Urea Nitrogen 16 mg/dL (6-20); Calcium 9.3 mg/dL (8.5-10.5); Carbon Dioxide 33 mmol/L (22-29); Chloride 93 mmol/L (98-107); Globulin 2.5 g/dL (1.3-4.6); Glucose 164 mg/dL (65-115); Lactic Sepsis W/Reflex 1.4 mmol/L (0.5-2.2); Osmolality Calculated 293 mOsm/kg (285-295); Sodium 139 mmol/L (136-145); Total Protein 7.2 g/dL (6.6-8.7)
[2025-02-06 11:00] LABS: Anion Gap 16.7 (5-19); Potassium 3.7 mmol/L (3.5-5.1)
[2025-02-06 11:04] LABS: Procalcitonin 0.35 ng/mL (0-0.5)
[2025-02-06] MEDS: linezolid premix 600 MG/300 ML PREMIX 300 MG IV (12:14)
[2025-02-06 12:29] LABS: Respiratory Syncytial Virus Ce NEGATIVE (Negative); SARS-CoV-2 PCR NEGATIVE (Negative)
--- NOTE | 2025-02-06 12:55 | PM.HP ---
Providers/Chief Complaint Admitting Physician: Dr. Stephon Velazco and Kimberly Santiago APRN Primary Care Provider: Herber Hussein MD Chief Complaint: Shortness of Breath History of Present Illness Bharati Anthony is a 49 year old female with pmhx of DVT, DM, ESRD, AMS, MRSA, CHF, tachycardia, chronic foot ulcers, anemia, covid, former illicit drug use, migraines, and anal carcinoma presenting with complaints of shortness of breath. Patient reports that since yesterday she has had shortness of breath that has become progressively worse. Endorses productive yellow cough, dizziness headaches 09/27, and being unstable on her feet. Denies recent flu-like illness or any sick contacts. Today she completed her dialysis but was sent here from that facility secondary to her worsening condition. She was transported to [facility] ED for further assessment. Mother is at bedside. In the ED, BP 130/65, HR 97, T99.3, O2 87% on room air.? WBC 9.6, Hgb 10.70, PLT 156.? pH 7.51, pO2 54.3, HCO3 33.8, pCO2 42.1.? Glucose 174.? AST/ALT WNL. Creatinine 2.5, BUN 16. CXR; Hazy bilateral lower lobe infiltrates. Review of Systems Const: Denies: fever(s) or chills Card: Denies: chest pain Resp: Denies: dyspnea GI: Denies: abdominal pain : Denies: dysuria, urinary frequency or urinary urgency Musc: Denies: neck pain or back pain Skin/Breast: Denies: rash Medications/Allergies Home Medications ?Medication ?Instructions ?Recorded ?Confirmed ?Last Taken ?Type pantoprazole 40 mg tablet,delayed 40 mg PO BID 06/19/19 02/06/25 02/06/25 History release diphenhydramine HCl 25 mg capsule 25 mg PO TID PRN Itching 04/01/20 02/06/25 07/30/24 History (Benadryl) ropinirole 0.25 mg tablet 0.25 mg PO BEDTIME 01/21/23 02/06/25 02/05/25 History vit B,C-folic ac 800 mcg-zinc 12.5 1 tab PO DAILY 01/21/23 02/06/25 02/06/25 History mg-selen-D3 2,000 unit-vit E tablet (RenaPlex-D) amlodipine 10 mg tablet 10 mg PO DAILY 03/22/24 02/06/25 02/06/25 History apixaban 2.5 mg tablet (Eliquis) 2.5 mg PO BID 11/26/24 02/06/25 02/06/25 History scopolamine base 1 mg over 3 days 1 patch topical Q72H PRN Nausea 11/26/24 02/06/25 Unknown History transdermal patch citalopram 20 mg tablet 10 mg (1/2 x 20 mg) PO DAILY #30 11/27/24 02/06/25 02/06/25 Rx tabs melatonin 10 mg capsule 5 mg (1/2 x 10 mg) PO BEDTIME #30 11/27/24 02/06/25 02/05/25 Rx caps acetaminophen 500 mg tablet 500 mg PO QID PRN Pain 02/06/25 02/06/25 Unknown History albuterol sulfate 90 mcg/actuation 2 inh inhalation Q6H PRN shortness 02/06/25 02/06/25 Unknown History aerosol inhaler of breath bumetanide 2 mg tablet See Rx Instructions .Route .COMPLEX 02/06/25 02/06/25 02/06/25 History carvedilol 25 mg tablet 25 mg PO BID 02/06/25 02/06/25 02/06/25 History hydralazine 25 mg tablet 25 mg PO TID 02/06/25 02/06/25 Unknown History metoclopramide HCl 5 mg tablet 5 mg PO TID 02/06/25 02/06/25 Unknown History (Reglan) promethazine 25 mg tablet 25 mg PO Q4H PRN Nausea 02/06/25 02/06/25 Unknown History sevelamer carbonate 800 mg tablet 1,600 mg PO TID 02/06/25 02/06/25 02/06/25 History sodium bicarbonate 650 mg tablet 650 mg PO TID PRN Indigestion 02/06/25 02/06/25 02/06/25 History Allergies Allergy/AdvReac Type Severity Reaction Status Date / Time sulfamethoxazole (From Allergy Severe ALGY-Rash Verified 09/18/24 10:58 Sulfamethoxazole-Trimethoprim) trimethoprim (From Allergy Severe ALGY-Rash Verified 09/18/24 10:58 Sulfamethoxazole-Trimethoprim) adhesive tape Allergy Unknown blisters Verified 09/18/24 10:58 Cephalosporins Allergy Unknown unknown Verified 09/18/24 10:58 doxycycline Allergy ADR-Vomitin Verified 09/18/24 10:58 g latex Allergy blisters Verified 09/18/24 10:58 Sulfa (Sulfonamide Allergy Unknown Verified 10/16/24 07:58 Antibiotics) PFSH Acute PFSH: Medical History Tachycardia Diabetes Deep vein thrombosis (DVT) during Chronic anticoagulation Squamous cell carcinoma of anal canal Diabetes mellitus End-stage renal disease Surgical History Status post surgery (05/19/20) Removal of peritoneal dialysis catheter Port-A-Cath in place S/P hemodialysis catheter insertion (01/09/20) Removed 11/18/2020 Peritoneal dialysis status H/O colonoscopy H/O hand surgery History of hip surgery History of hysterectomy Family History Other Cancer Diabetes Denies family history of Anesthesia complication Bleeding disorder Social History Smoking and tobacco/nicotine status: current every day tobacco/nicotine user cigarettes Packs smoked per day: 0.25 Alcohol intake: never Substance/Drug Use: former Date of last use: Greater than 8 years ago as of 11/26/2024 Former substance use details: Marijuana and then switched to methamphetamines but stopped greater than 8 Additional social history: CODE STATUS discussed and patient wants DNR on 11/26/2024 with Brian Philippe MD Household members: family Marital status: Single Current occupational status: disabled Vitals/I&O/Wt Last Vital Signs Temp 99.3 F 02/06/25 10:01 Pulse 108 H 02/06/25 12:15 Resp 25 H 02/06/25 10:01 BP 154/73 02/06/25 12:15 Pulse Ox 93 02/06/25 12:15 O2 Del Method Nasal Cannula 02/06/25 12:15 O2 Flow Rate 2 02/06/25 12:15 Physical Exam Const: COMMON NORMALS: patient oriented x3 and alert GENERAL APPEARANCE: cooperative, in distress, anxious and ill appearing ORIENTATION/CONSCIOUSNESS: Yes awake HENMT: COMMON NORMALS: normocephalic, atraumatic and hearing grossly normal bilaterally HEAD & SCALP: normocephalic and atraumatic Eye: SCLERA: scleral abnormal (redness) Laterality of scleral abnormality: positive bilateral Resp: AUSCULTATION: clear to auscultation bilaterally Cardio: JUGULAR VENOUS DISTENTION: no JVD RATE: tachycardic GI: COMMON NORMALS: Soft to palpation and non-tender AUSCULTATION: Yes normoactive bowel sounds Extremity: OTHER: BLE edema, right foot great toe amputated Skin: GENERAL SKIN EXAM: crusts, dry skin and erythema Data 02/06/25 10:27 02/06/25 10:27 A&P Assessment and plan 1. Pneumonia: With tachypnea and fever - T 99.3. RR 25, HR 109 WBC WNL at 9.68 ph 7.51, pCO2, 42.1, pO2 54.3, HCO3 33.8 CXR; Hazy bilateral lower lobe infiltrates Vancomycin, Merrem Vitamin C, Vitamin D, Zinc Covid and Flu NEG Pulse oximetry Supplemental O2 PT/OT prior to DC Sepsis monitoring precautions Repeat VBGs 2. End stage renal disease on dialysis: Creatinine 2.5, BUN 16 History of peritoneal dialysis Patient receives hemodialysis on Tuesday, Tuesday, Tuesday at [facility] Makes minimal urine Proteinuria?urinalysis; trace blood, 2+ protein CMP 3. Diabetes mellitus: Glucose 174 History of diabetic gastroparesis A1c Note: patient used to be on semaglutide?she had poor reaction with severe nausea and vomiting and lost 50 pounds within 7 weeks. 4. Nicotine dependence: Current everyday cigarette use, ? pack per day Cessation education 5. DVT (deep venous thrombosis): On Eliquis INR 6. Hypertension: BP 154/79 Continue home Carvedilol BP monitoring PDMP PDMP Reviewed: Not Reviewed Attestations Medical Necessity Statement*: At least 2 midnights for shortness of breath with abnormal blood gas labs and sepsis risk monitoring. Diagnoses Pneumonia J18.9 End stage renal disease on dialysis N18.6; Z99.2 Diabetes mellitus E11.9 Nicotine dependence F17.200 DVT (deep venous thrombosis) I82.409 Hypertension I10 Time Spent (min) 70
--- OUTSIDE RECORDS SUMMARY | 2025-02-06 13:02 | XMS_ITS | Encounter Summary ---
Author Organization [place] [facility] Address [address] [place] [address] Phone Care Team Providers Care Scrap Shear Operator Name Role Phone Herber Hussein MD Primary Care Provider [phone] Encounter Details Date Type Department Care Team (Late st Contact Info) Description 11/05/2024 TCM in Dialysis Clinic [facility], [facility] [address] [place] [address] Fabiana Butts, [place] [address] [place] [address] Social History Tobacco Use Types [...] Patient: Bharati Serna Raj : 1975 VBC: [facility] Note Type: Dialysis TCM Service Date: 11/05/2024 The patient was seen for a [id number] visit as part of Transitional Care Management services. Attending Guitar Teacher: RDODY HENDERSON Dialysis Location: [facility] Schedule: Shift: 1 INTERACTIVE CONTACT Contact with the patient or caregiver was made or attempted within 2 business days of discharge - details in the medical record. COMMENTS: HORACIO bailey [facility] called patient, reviewed and updated medications, reviewed [...] COMMENTS: Given metoclopramide and ondansetron Current [facility] Outpatient Medications acetaminophen (TYLENOL) tablet Take [...] 98.4*F Current Dialysis Vitals BP Sit: 129/65 AP/LOCOMOTIVE CRANE OPERATOR: 188/194 Pulse: 108 CARE COORDINATION Post-discharge follow-up appointments reviewed with the patient. COMMENTS: Follow up within the next 10 days with PCP and GI EDUCATION Education relevant to the discharge diagnosis provided to the patient or caregiver IMPRESSION & PLAN COMMENTS: Obtain Hgb today, assess for adjustments to DORINDA/iron replacement based upon results. VISIT DIAGNOSES CPT Code 49528 - High complexity, seen within 7 days of discharge. K92.0 Hematemesis K31.84 Gastroparesis Signed by: FABIANA BUTTS NP on 11/05/2024 at 08:19:48 AM Transcribed by: FABIANA BUTTS NP on 11/05/2024 at 08:19:48 AM documented in this encounter Plan of Treatment Not on file documented as of this encounter Visit Diagnoses Not on filedocumented in this encounter Care Teams Scrap Shear Operator Relationship Specialty Start Date End Date Herber Hussein MD [address] [place] [address] PCP - General Family Medicine 07/14/18 documented as of this encounter
--- OUTSIDE RECORDS SUMMARY | 2025-02-06 13:02 | XMS_ITS | Data Portability ---
Author Organization DEMETRA Marinelli [facility] Kory Mata [facility] Address [address] [facility] [address] [place] [address] Care Team Providers Care Neonatal Critical Care Nurse Name Role Phone ALICIA HUSSEIN Primary Care Provider Unavailomar e Assessment No assessment recorded. Plan of Treatment Reminders Order Date Submit Date Provider Last Modified By Organization Details Last Modified Time Details Appointments None recorded. Lab urinalysi s, complete 2024 025 [place] [facility], [address], [facility], [place], [address], 5 13:33:07 culture, urine 2024 025 [place] [facility], [address] [address], [address] [place], [address], 5 16:46:06 Referral gastroent erologist referral 2024 025 [email or web address] Not available 5 11:29:20 Procedures arthrocen tesis, aspiratio n and/or injection , major joint or bursa (PROC) 2024 025 [facility], [address] [place], [address], 5 13:03:06 Surgeries None recorded. Imaging NM, hepatobil iary scan 2024 025 [facility] (Schedluing & Pre Registration) , [address], [address], 5 12:35:24 XR, shoulder, 2 or more view 2024 025 [facility], [address], [place], [address], 5 10:26:04 NM, hepatobil iary scan 2024 025 [facility] (Scheduling Orders), [address] [facility], [place], [address], 5 12:40:35 Medication Orders scopolami ne 1 mg over 3 days transderm al patch 2024 025 [facility]/Pharmacy #[id number], [address], [facility] [address], [place], [address], 12:16:17 betametha sone acetate and sodium phos 6 mg/mL suspensio n for injection 2024 025 [email or web address] Not available 14:51:24 citalopra m 20 mg tablet 2024 025 [facility]/Pharmacy #[id number], [address] [facility], [facility] [address], [place], [address], 5 12:54:20 amoxicill in 500 mg capsule 2024 025 [facility]/Pharmacy #[id number], [address], [facility] [address], [place], [address], 5 15:17:43 sodium bicarbona te 650 mg tablet 2024 025 [email or web address] [facility]/Pharmacy #[id number], [address] [facility], [facility], [place], [address], 13:53:02 amoxicill in 875 mg tablet 2024 025 [id number], [address], [address], [place], [address], 05:01:13 olopatadi ne 0.1 % eye drops 2024 025 [id number], [address], [address], [place], [address], 15:55:29 cetirizin e 5 mg tablet 2024 025 [id number], [address] [facility] [address] [facility], [address], [place], [address], 15:20:57 Patient TargetsNo targets recorded. Patient InstructionsNo instructions recorded. Reason for Referral Stitcher Around Referral for Nausea and vomiting Referring Physician: Alicia [facility], Encounter Date: 10/26/2024 Results Created Date Observation Date Name Description Value Unit Range Abnormal Flag Note LastModifiedBy Organization Detail LastModifiedTime 07/31/1907/30/2024 URINA LYSIS WITH MICRO color YELLOW Not Available [facility] [address] [facility] [address], [place], [address], 07/30/2024 13:33:07 07/31/19 25 07/30/2024 URINA LYSIS WITH MICRO clarity CLEAR Not Available [facility] [address] [facility] [address], [place], [address], 07/30/2024 13:33:07 07/31/19 25 07/30/2024 URINA LYSIS WITH MICRO glu TRACE Not Available [facility] [address] [facility] [address], [place], [address], 07/30/2024 13:33:07 07/31/19 25 07/30/2024 URINA LYSIS WITH MICRO bili NEGATI VE Not Available [facility] [address], [place], [address], 07/30/2024 13:33:07 07/31/19 25 07/30/2024 URINA LYSIS WITH MICRO ket NEGATI VE Not Available [facility] [address], [place], [address], 07/30/2024 13:33:07 07/31/19 25 07/30/2024 URINA LYSIS WITH MICRO S.g 1.020 1.005- 1.025 Not Available [facility] [address], [place], [address], 07/30/2024 13:33:07 07/31/19 25 07/30/2024 URINA LYSIS WITH MICRO pH 8.5 5.0-7. 0 high Not Available [facility] [address], [place], [address], 07/30/2024 13:33:07 07/31/19 25 07/30/2024 URINA LYSIS WITH MICRO pro 3+ Not Available [facility] [address], [place], [address], 07/30/2024 13:33:07 07/31/19 25 07/30/2024 URINA LYSIS WITH MICRO uro 0.2 Not Available [facility] [address], [place], [address], 07/30/2024 13:33:07 07/31/19 25 07/30/2024 URINA LYSIS WITH MICRO nit NEGATI VE Not Available [facility] [address], [place], [address], 07/30/2024 13:33:07 07/31/19 25 07/30/2024 URINA LYSIS WITH MICRO blo TRACE Not Available [facility] [address] [facility] [address], [place], [address], 07/30/2024 13:33:07 07/31/19 25 07/30/2024 URINA LYSIS WITH MICRO shanita NEGATI VE Not Available [facility] [address] [facility] [address], [place], [address], 07/30/2024 13:33:07 07/31/19 25 07/30/2024 URINA LYSIS WITH MICRO WBC 6-8 Not Available [facility] [address] [facility] [address], [place], [address], 07/30/2024 13:33:07 07/31/19 25 07/30/2024 URINA LYSIS WITH MICRO RBC 1-3 Not Available [facility] [address] [facility] [address], [place], [address], 07/30/2024 13:33:07 07/31/19 25 07/30/2024 URINA LYSIS WITH MICRO epi cells 8-10 Not Available [facility] [address] [facility] [address], [place], [address], 07/30/2024 13:33:07 07/31/19 25 07/30/2024 URINA LYSIS WITH MICRO bacteria TRACE MIXED BERTHA Not Available [facility] [address] [facility] [address], [place], [address], 07/30/2024 13:33:07 07/31/19 25 07/30/2024 URINA LYSIS WITH MICRO other NEGATI VE Not Available [facility] [address] [facility] [address], [place], [address], 07/30/2024 13:33:07 07/31/19 25 08/01/2024 CULTU RE, URINE , ROUTI NE culture, urine, routine SEE NOTE abnormal CULTU RE, URINE , ROUTI NE Micro Numbe r: [id number] Test Statu s: Final Speci men [...] lexin and lorac arbef . Not Available [facility] [address] [place] [address], [address], 08/01/2024 16:46:06 09/12/19 25 09/06/2024 colon oscop y proce dure (PROC ) No observ ation record ed. [email or web address] Not Available 09/12 10:11:12 11/14/19 25 11/13/2024 NM, hepat obili tank scan No observ ation record ed. [facility] [place] [address] [place], [address], 11/13/2024 18:06:19 Result Notes None recorded. Problems Name Problem SNOMED Code Status Onset Date Resolution Date Notes Provider Name and Address Organization Details Recorded Time Dependenc e on renal dialysis 966453730 Active LEEANNE fajardo [facility] 5 14:10:11 Chronic ulcer of right foot Active LEEANNE GUILLAUME [facility] 14:10:11 Fracture of inferior pubic ramus 855035013 Completed 06/08/2024 LEEANNE GUILLAUME [facility] 14:51:37 Tachycard ia 6700597 Active LEEANNEMillicent GUILLAUME [facility] 14:10:11 Hypoxia 742809423 Completed 06/08/2024 LEEANNE GUILLAUME [facility] 14:51:57 Congestiv e heart failure 89729547 Active LEEANNEMillicent GUILLAUME [facility] 16:20:32 Antepartu m deep vein thrombosi s 28989696 Active LEEANNEMillicent GUILLAUME [facility] 14:10:11 At increased risk of impaired respirato ry system function 614397256 Completed 06/08/[address] [facility] 5 15:22:54 Long-term current use of anticoagu lant 212402441 Completed 06/08/2024 [facility] 15:22:54 Dystrophi a unguium 48725068 Completed 06/08/2024 [facility] 5 15:22:54 Harmful pattern of use of psychoact williams substance 75418327 Completed 06/08/[address] [facility] Juan.L.CMireya 5 15:22:54 Chronic ulcer of left foot Completed 06/08/[address] [facility] Juan.L.CMireya 5 15:22:54 Neuropath ic ulcer of right foot Completed 06/08/2024 [facility] 5 15:22:54 Injury of left wrist 49315505551 817113 Completed 06/08/2024 [facility] 5 15:22:54 Sprain of left wrist 79779144143 376951 Completed 06/08/[address] [facility] 5 14:51:34 Deep venous thrombosi s 853288425 Completed 06/08/[address] [facility] 5 15:22:54 Foot callus 862816893 Completed 06/08/[address] [facility] 5 15:22:54 Dyspnea 760599149 Completed 06/08/[address] [facility] 5 14:52:11 Subungual hematoma of foot 787543793 Completed 06/08/[address] [facility] 5 15:22:54 Ulcer of big toe 726929183 Completed 06/08/[address] [facility] 5 15:22:54 Bronchiti s 85508647 Completed 06/08/2024 LEEANNE fajardo, [facility] 5 14:52:05 Dehydrati on 29496832 Completed 06/08/[address] [facility] 5 15:22:54 Malignant neoplasm of anal canal 215886706 Completed 06/08/[address] [facility] 5 15:22:54 Hypoxemia 904477431 Completed 06/08/[address] [facility] 5 14:51:52 Vomiting 021930956 Completed 06/08/[address] [facility] 5 14:52:26 Dependenc e on peritonea l dialysis 672613358 Completed 06/08/[address] [facility] 5 15:22:54 End-stage renal disease 45352341 Completed 06/08/[address] [facility] 5 15:22:54 Acute hypokalem ia 35164917 Completed 06/08/[address] [facility] 5 15:22:54 Preoperat [place] 40772933 Completed 06/08/[address] [facility] 5 15:22:54 COVID-19 769786565 Completed 06/08/2024 LEEANNE MARKELL [facility] 14:51:28 Suspected COVID-19 987989009 Completed 06/08/2024 LEEANNE MARKELL [facility] 14:51:23 Atypical chest pain 833737716 Active LEEANNE GUILLAUME [facility] 5 16:20:32 Chronic ulcer of left foot Active [facility] GUILLAUME [facility] 5 16:20:32 Neuropath ic ulcer of right foot Active [facility] 5 16:20:32 Injury of left wrist 43429117045 542847 Active [facility] 5 16:20:32 Deep venous thrombosi s 097264039 Active [facility] 5 16:20:32 Foot callus 515835669 Active [facility] 16:20:32 Anemia 018228431 Active LEEANNE GUILLAUME [facility] 5 16:20:32 Subungual hematoma of foot 260049752 Active [facility] 16:20:32 Ulcer of big toe 268018956 Active [facility] 5 16:20:32 Dehydrati on 74115584 Active [facility] 5 16:20:32 Malignant neoplasm of anal canal 042329918 [facility] 16:20:32 Dependenc e on peritonea l dialysis 993787183 [facility] 5 16:20:32 End-stage renal disease 36013948 Active LEEANNE fajardo, [facility] 5 16:20:32 Acute hypokalem ia 35498092 [facility] 5 16:20:32 At increased risk of impaired respirato ry system function 982762833 Active LEEANNE GUILLAUME [facility] 5 16:20:32 Long-term current use of anticoagu lant 747255477 Active LEEANNE GUILLAUME [facility] 5 16:20:32 Preoperat [place] 49502502 Active LEEANNE GUILLAUME [facility] 5 16:20:32 Gastroint estinal hemorrhag e 11538003 Active LEEANNE GUILLAUME [facility] 5 16:20:32 Dystrophi a unguium 01905071 Active LEEANNE GUILLAUME [facility] 5 16:20:32 Harmful pattern of use of psychoact williams substance 15200404 Active LEEANNE GUILLAUME [facility] 5 16:20:32 History of procedure 050058682 Completed 201906/08/[address] [facility] 5 15:22:54 History of procedure 654987835 Active [address] [facility] 16:20:32 Migraine 77322229 Completed 202205/21/[address] [facility] 5 14:14:57 Malignant neoplasm of large intestine 143917607 Active 2022 [facility]; Impress ion: stable at this time. LEEANNE fajardo [facility] 5 14:10:11 Essential hypertens ion 00304855 Active [address] [facility] 5 14:10:11 End stage renal failure on dialysis 409358319 Active [address] [facility] 5 14:10:11 History of deep vein thrombosi s 093211615 Completed 202205/21/[address] [facility] 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 14:11:19 History of malignant neoplasm of colon 936271812 Active [address] [facility] 5 14:10:11 Diabetes mellitus 61969259 Active 2022 Alicia Hussein MD [address] [place] [address], [phone], [facility] 5 12:50:30 Osteomyel itis of right foot 67791883483 17998 Completed 202205/21/2024 LEEANNE DODDRIS scotty, [facility] 5 14:11:19 Generaliz ed anxiety disorder 19506718 Active 2022 LEEANNE GUILLAUME [facility], [facility] 5 14:10:11 Restless legs syndrome 64271842 Active 2022 LEEANNE DODDRIS [facility] 5 14:10:11 Coronary atheroscl erosis 972248038 Active 2023 LEEANNE GUILLAUME [facility] 5 14:15:17 Bilateral cataracts 53012382 Completed 202305/21/2024 LEEANNE GUILLAUME [facility] 5 14:12:49 Coronary arteriosc lerosis 39422356 Active 2023 LEEANNE GUILLAUME [facility] 5 14:10:11 Hematoche jose carlos 627358560 Completed 202305/21/2024 LEEANNE GUILLAUME [facility] 5 14:16:31 Major depressiv e disorder 353223901 Active 2023 LEEANNE GUILLAUME [facility] 5 14:10:11 Iron deficienc y anemia 49866916 Active 2023 LEEANNE GUILLAUME [facility] 14:10:11 Tendernes s of right upper quadrant of abdomen 547166014 Completed 202305/21/2024 LEEANNE GUILLAUME [facility] 14:16:31 Gastroeso phageal reflux disease 240184427 Active 2023 LEEANNE GUILLAUME null, [facility] 5 14:10:11 Mass of colon 962717186 Completed 202406/08/2024 [place] null, [facility] 5 15:22:54 Right upper quadrant pain 442596323 Active 2024 Alicia Hussein MD [address] [place] [address], [phone], [facility] 5 15:48:14 Pain of left shoulder region Active 2024 Alicia Hussein MD [address] [place] [address], [phone], [facility] 11:15:01 Nausea and vomiting 85111371 Active 2024 Alicia Hussein MD [address] [place] [address], [phone], [facility] 11:16:34 Bursitis of left shoulder 60859566398 9104 Active 2024 Alicia Hussein MD [address] [place] [address], [phone], [facility] 11:58:58 Hematemes is 1580448 Active 2024 Alicia Hussein MD [address] [place] [address], [phone], [facility] 16:58:26 Problem Notes None recorded. Procedures Surgical History Date Name Laterality Status Provider Name and Address Organization Details Recorded Time 11/26/2024 plain X-ray of chest completed EBONY MCCRARY Андрей Manuela [facility], [facility] 11/30/2024 14:45:18 11/26/2024 CT of entire head completed [facility] 11/30/2024 14:45:56 10/26/2024 Joint Inj Beta-should er, hip, knee completed Alicia Hussein MD [address] [place] [address], [phone], [facility], LKeyana 10/26/2024 12:09:03 Imaging Results None recorded. Procedure Notes None recorded. Medical Equipment None Reported. Allergies Allergen ID Allergen Name Allergen Category Reaction Reaction Severity Criticality Documentation Date Start Date Code Code System Note Provider Name and Address Organization Details Recorded Time 78038 pseudoeph edrine tannate medicatio n itching rash mild mild low 10/16/2022 [address] [facility], [place]aCM[facility] 4 11:38:45 09924 Ceftin medicatio n itching rash mild mild low 10/16/2022 76456 [address] [facility], KylahLMireyaCMireya 4 11:38:26 02504 doxycycli ne hyclate medicatio n vomiting moderate low 10/16/2022 55671 RxNorm Samantha Perez [facility], KylahLMireyaCMireya 4 11:38:31 12903 acetamino phen / dextromet horphan / guaifenes in / pseudoeph edrine medicatio n Not available Not available Not available 10/16/2022 99091 8 RxNorm Samantha Perez [facility], LMireyaLMireyaC. 4 11:38:46 58271 doxycycli ne Not available Not available Not available Not available 03/06/20242023 3640 Rx[address] [facility], LMireyaLMireyaCMireya 4 12:28:55 19746 latex environme nt,medica tion Not available Not available Not available 03/06/20242023 38330 [address] 4 12:28:55 84166 cephalexi n medicatio n rash Not available [facility] 02/01/20252018 2231 RxNorm Not Available [facility] External Data Service - prod 13:57:04 43826 sulfameth oxazole medicatio n Not available Not available [facility] 02/01/20252024 25325 RxNorm Not Available [facility] External Data Service - prod 13:58:36 89279 trimethop rim medicatio n Not available Not available [facility] 02/01/20252024 75337 RxNorm Not Available [facility] External Data Service - [facility] 13:58:36 Medications Name Sig Start Date Stop Date Status Note LastModified by Organization Details LastModified Time amoxicill in 500 mg capsule Take 1 capsule twice a day by oral route for 5 days. 10/08 completed Not Available Not Available Not Available carvedilo l 25 mg tablet TAKE 1 TABLET BY MOUTH TWICE A DAY 2024 active Not Available Not Available Not Avai lable doxycycli ne hyclate 100 mg capsule TAKE 1 CAPSULE BY MOUTH TWICE A DAY FOR 10 DAYS 10/19 completed Not Available Not Available Not Available carvedilo l 12.5 mg tablet TAKE 1 TABLET BY MOUTH TWICE A DAY 06/13 completed Not Available Not Available Not Available bumetanid e 2 mg tablet TAKE 1 TABLET BY MOUTH EVERY DAY AFTER DIALYSIS ON DIALYSIS DAYS active Not Available Not Available No t Available citalopra m 40 mg tablet TAKE 1 TABLET BY MOUTH EVERY DAY 08/08 completed Not Available Not Available Not Available cetirizin e 10 mg tablet TAKE 1 TABLET BY MOUTH EVERY DAY NEEDED FOR SKIN ALLERGIE S 04/19 completed Not Available Not Available Not Available azithromy son 250 mg tablet TAKE 2 TABLETS BY MOUTH ON DAY 1, AND THEN TAKE 1 TABLET BY MOUTH ONCE A DAY ON DAY 2 THROUGH DAY 5 11/30 completed Not Available Not Available Not Available [...] completed Not Available Not Available Not Available thiamine HCl (vitamin B1) 100 mg tablet TAKE 1 TABLET BY MOUTH EVERY DAY active Not Available Not Available No t Available diphenoxy late-atro pine 2.5 mg-0.025 mg [...] completed Not Available Not Available Not Available betametha sone acetate and sodium phos 6 mg/mL suspensio n for injection Take 6 mg by injectio n route for 1 day. 11/30 completed Not Available Not Available Not Available [...] Not Available Not Available No t Available IROCKEToCamerama Ultra Test strips CHECK SUGAR DAILY active [...] Not Available Not Available No t Available bumetanid e 1 mg tablet TAKE TAKE 1 TABLET BY MOUTH ON NONDIALY SIS DAYS active Not Available Not Available No t Available folic acid 1 mg tablet TAKE 1 TABLET ORALLY DAILY active Not Available Not Available No t Available mupirocin 2 % topical ointment APPLY A SMALL AMOUNT TO AFFECTED AREA 3 TIMES A DAY 04/19 completed Not Available Not Available Not Available levofloxa son 750 mg tablet TAKE 1 TABLET BY MOUTH EVERY DAY 08/08 completed Not Available Not Available Not Available scopolami ne 1 mg over 3 days transderm al patch APPLY 1 PATCH BEHIND ONE EAR EVERY 72 HOURS FOR 30 DAYS, FOR NAUSEA AND VOMITING .. active Not Available Not Available No t Available albuterol sulfate HFA 90 mcg/actua tion aerosol inhaler INHALE 2 PUFFS BY MOUTH FOUR TIMES A DAY FOR SHORTNES S OF BREATH active Not Available Not Available No t Available ondansetr on 4 mg disintegr ating tablet DISSOLVE 1 TABLET ON TONGUE EVERY 6 HOURS NEEDED FOR NAUSEA OR VOMITING active Not Available Not Available No [...] citalopra m daily 10/19 completed Recorded 10/06/19 2:34PM by Alicia Hussein MD, Office Visit; [...] as needed 12/10 completed 0; Recorded 06/08/19 2:50PM by Leeanne [...] THE DAY PRIOR TO YOU PROCEDUR E 11/30 completed Not Available Not Available Not Available melatonin 10 mg tablet 10 mg [...] Updated DateTime 06/08/2024 175.26 cm 23.5 kg/m2 47006.19 g 94 /min 105/50 mm[Hg] BHUPINDER LA[place] [facility] 03/21/202 5 15:12:18 Date Recorded Body height Body mass index (BMI) Body weight Oxygen saturation Oxygen saturation in Arterial blood by Pulse oximetry Heart rate Systolic And Diastolic Provider Name and Address Organization Details Last Updated DateTime 5 175.26 cm 23.9 kg/m2 17020.9 6 g 90 % 90 % 54 /min 110/70 mm[Hg] [facility] 5 12:13:42 Date Recorded Body height Body mass index (BMI) Body weight Heart rate Systolic And Diastolic Provider Name and Address Organization Details Last Updated DateTime 10/08/2024 175.26 cm 22 kg/m2 49580.26 g 72 /min 124/59 mm[Hg] BHUPINDER LA[place] [facility] 5 15:16:48 Date Recorded Body height Body mass index (BMI) Body weight Oxygen saturation Oxygen saturation in Arterial blood by Pulse oximetry Heart rate Systolic And Diastolic Provider Name and Address Organization Details Last Updated DateTime 5 175.26 cm 20.2 kg/m2 63515.1 5 g 97 % 97 % 125 /min 132/64 mm[Hg] [facility] 5 11:01:52 Date Recorded Body height Body mass index (BMI) Body weight Heart rate Oxygen saturation Oxygen saturation in Arterial blood by Pulse oximetry Systolic And Diastolic Provider Name and Address Organization Details Last Updated DateTime 5 175.26 cm 22.2 kg/m2 07550.8 6 g 89 /min 96 % 96 % 142/60 mm[Hg] LEEANNE DODDRIS [facility] 5 16:27:48 Social History Question Answer Notes LastModified by [employer] Details LastModified Time Tobacco Smoking Status Current Every Day Smoker LEEANNE GUILLAUME [facility] 10/19/2022 11:35:39 What Was The Date Of Your Most Recent Tobacco Screening? 10/08/2024 [email or web address] Information not available 10/08/2024 Sex: Unknown Functional Status Question Answer Note LastModified by Organizat ion Details LastModified Time Do you use any illicit or recreational drugs? No [email or web address] Information not available 10/19/2022 What is your level of alcohol consumption? None [email or web address] Information not available 10/19/2022 Mental Status None [...] Td(adult) unspecified formulation 1 completed Not Available [facility] 04/19/2023 15:11:02 Tdap 7 completed NILAY KRUSE PA-C [address] [place], [address], [facility] 09/13/2022 15:07:01 Td (adult), 2 Lf tetanus toxoid, preservative free, adsorbed 2 completed NILAY KRUSE PA-C [address] [place], [address], [facility] 09/13/2022 15:07:01 Past Encounters Encounter ID Performer Location Encounter Start Date Encounter Closed Date Diagnosis/Indication Diagnosis SNOMED-CT Code Diagnosis ICD10 Code Diagnosis IMO Codes Diagnosis Note [id number] NILAY KRUSE PA-C [facility] ([facility]) [address] [place] [address] 09/13/2022 14:42:44 09/13/2022 19:54:38 Swelling of lower leg 755266207 R22.41 Venous doppler revealed no evidence of DVT. likely edema is venous stasus. encouraged compressio n wraps and elevation. She has appt tomorrow for fistulogra m. End stage renal failure on dialysis 838483616 N18.6 History of deep vein thrombosis 961367348 Z86.718 Acquired c oagulation factor inhibitor disorder 69708326 D68.8 on Eliquis History of malignant neoplasm of colon 955733838 Z85.038 [id number] NILAY KRUSE PA-C [facility] ([facility]) [address] [place], [place] [address] 09/13/2022 15:37:41 09/13/2022 19:06:42 [id number] Alicia Hussein MD [facility] ([facility]) [address] [place], [place] [address] 10/19/2022 11:21:25 10/19/2022 15:41:59 Diabetes mellitus 72263973 E13.42 followed by endocrinol ogy. Osteomyeli tis of right foot 2432240573 720963 M86.9 right fifth toe. S/P amputation . Would benefit from a scooter for improved ambulation . Generalize d anxiety disorder 89638790 F41.1 [id number] Alicia Hussein MD [facility] ([facility]) [address] [place], [place] [address] 12/03/2022 11:00:55 12/03/2022 11:42:02 [id number] Alicia Hussein MD [facility] ([facility]) [address] [place] [address] 5 12/10/2022 14:08:08 12/10/2022 16:14:04 Diabetes mellitus 52082932 E13.42 followed by endocrinol ogy. End stage renal failure on dialysis 320819090 N18.6 Essential hypertension 76393040 I10 Generalize d anxiety disorder 11061071 F41.1 Visual disturbance 68866 001 H53.9 [id number] Alicia Hussein MD [facility] ([facility]) [address] [place] [address] 02/28/2023 13:32:16 02/28/2023 14:35:19 Depressive disorder 31099941 F32.9 End stage renal failure on dialysis 907784067 N18.6 Cataract 502089192 H26.9 Atypical chest pain 1025 03012 R07.89 lexiscan sestamibi stress test to be done before cataract surgery can be done. Mixed anxi ety and depressive disorder 777648075 F41.8 Restless l egs syndrome 26025791 G25.81 [id number] Shan Vitale MD [facility] ([facility]) [address] [place] [address] 03/17/2023 12:43:56 03/17/2023 14:08:31 Cellulitis of skin 350693564 L03.90 Lesion is more consistent with infection. It is right in the midline and would not be typical for shingles. Concerned about bacterial infection. Start mupirocin 3 times daily. Follow-up with PCP if symptoms do not improve [id number] Alicia Hussein MD [facility] ([facility]) [address] [place] [phone] 04/04/2023 11:19:56 04/04/2023 12:29:40 Depressive disorder 95374054 F32.9 Diabetes mellitus 686779 09 E11.21 followed by endocrinol renu. End stage renal failure on dialysis 588690480 N18.6 Coronary atherosclerosis 074701979 I25.10 Stable with recent stress test. Cleared for cataract surgery. [id number] Alicia Hussein MD [facility] ([facility]) [address] [place] [address] 5 04/19/2023 15:10:53 04/19/2023 17:50:30 Essential hypertension 14495600 I10 End stage renal failure on dialysis 946175106 N18.6 Bilateral cataracts 9572 2003 H26.9 Coronary arteriosclerosis 98522997 I25.10 [id number] Alicia Hussein MD [facility] ([facility]) [address] [place] [address] 06/03/2023 11:50:39 06/03/2023 12:53:56 Acute sinusitis 16076777 J01.90 Hematochezia 515373023 K 92.1 Major depr essive disorder 316538635 F32.9 has been doing well on 60mg Citalopram but having lots of health issues and is more depressed today. Primary ma lignant neoplasm of colon 19453824 C18.9 has been in remission. [id number] Alicia Hussein MD [facility] ([facility]) [address] [place] [phone] 06/14/2023 09:57:10 06/14/2023 12:17:52 Chronic obstructive pulmonary disease 97033958 J44.9 Diabetes mellitus 594426 09 E11.21 followed by endocrinol renu. End stage renal failure on dialysis 742230036 N18.6 Essential hypertension 56003570 I10 Generalize d anxiety disorder 63691418 F41.1 Hospital i npatient stay within past 30 days 2320383185 106 Z76.89 doing much better. Major depr essive disorder 886160148 F32.9 has been doing well on 60mg Citalopram but having lots of health issues and is more depressed today. [id number] Alicia Hussein MD [facility] ([facility]) [address] [place] [phone] 5 08/09/2023 15:38:41 08/09/2023 16:53:06 Osteomyelitis of right foot 8780870033 511392 M86.9 Cellulitis of skin 59715 1002 L03.90 improving, followed by wound clinic. Iron defic iency anemia 57073581 D50.9 Now on Carafate suspension Diabetes mellitus 555485 09 E11.21 Sugar running low, will stop Januvia and monitor. [id number] Alicia Hussein MD [facility] ([facility]) [address] [place] [phone] 5 10/11/2023 13:56:17 10/11/2023 14:47:04 Osteomyelitis of right foot 4506663439 307379 M86.9 Cellulitis of skin 68057 1002 L03.90 Resolved. Complicati on due to diabetes mellitus type 2 0854054792 9100 E11.8 Tenderness of right upper quadrant of abdomen 427790454 R10.811 End stage renal failure on dialysis 943418937 N18.6 Essential hypertension 88089725 I10 Generalize d anxiety disorder 69366939 F41.1 [id number] Alicia Hussein MD [facility] ([facility]) [address] [place] [phone] 5 10/19/2023 10:49:43 10/19/2023 17:31:07 [id number] Alicia Hussein MD [facility] ([facility]) [address] [place] [phone] 5 12/06/2023 16:28:14 12/06/2023 17:24:33 Complication due to diabetes mellitus type 2 8894600935 9100 E11.8 Generalize d anxiety disorder 19852905 F41.1 End stage renal failure on dialysis 357810997 N18.6 She would like to get back on the transplant list. She will discuss with her Nephrologi st about this. Major depr essive disorder 364542853 F32.9 Coronary atherosclerosis 658044229 I25.10 Essential hypertension 21546118 I10 Tenderness of right upper quadrant of abdomen 211368646 R10.811 Awaiting HIDA scan. Gastroesop hageal reflux disease 820392837 K21.9 [id number] Alicia Hussein MD [facility] ([facility]) [address] [place] [phone] 5 03/06/2024 11:53:40 03/08/2024 11:04:07 Nausea and vomiting 24341671 R11.2 Diabetes mellitus 937205 09 E13.42 Sugar up and down some. Chronic ul cer of right foot 0179609560 5762049 L97.519 Osteomyeli tis probable and being placed on Vancomycin at dialysis. Coronary atherosclerosis 836258740 I25.10 End stage renal failure on dialysis 814249378 N18.6 Gastroesop hageal reflux disease 314161328 K21.9 [id number] Alicia Hussein MD [facility] ([facility]) [address] [place] [phone] 5 05/21/2024 16:45:43 05/22/2024 15:41:19 Mass of colon 747561551 R19.09 cystic mass of sigmoid colon with history of rectal CA. Diabetes mellitus 821376 09 E13.42 Sugar up and down some. End stage renal failure on dialysis 289349300 N18.6 Generalize d anxiety disorder 16372898 F41.1 History of malignant neoplasm of colon 606406676 Z85.042 [id number] Alicia Hussein MD [facility] ([facility]) [address] [place] [address] 65916-402 5 06/08/2024 14:45:11 06/09/2024 07:29:40 Acute sinusitis 86395802 J01.90 Diabetes mellitus 495735 09 E13.42 Sugar up and down some. Dependence on renal dialysis 759947541 Z99.2 Allergic conjunctivitis of bilateral eyes 9809023841 97849 H10.13 [id number] Alicia Hussein MD [facility] ([facility]) [address] [place] [phone] 5 07/30/2024 11:43:46 07/31/2024 09:35:28 Diabetes mellitus 55085365 E11.21 924109 Sugar up and down some. Due for A1c next week at dialysis. Left flank pain 97900244 9 R10.9 992163 Gastroesop hageal reflux disease 946695131 K21.9 Generalize d anxiety disorder 90549663 F41.1 [id number] Alicia Hussein MD [facility] ([facility]) [address] [place] [phone] 10/08/2024 14:59:42 10/08/2024 17:11:53 Right upper quadrant pain 307416991 R10.11 [id number] Diabetes mellitus 764416 09 E11.21 124276 End stage renal failure on dialysis 217612768 N18.6 Essential hypertension 48934237 I10 [id number] Alicia Hussein MD [facility] ([facility]) [address] [place] [phone] 5 10/26/2024 10:48:19 10/26/2024 14:18:40 Pain of left shoulder region 4129745671 M25.512 82246344 No fracture of bony abnormalit ies. Generalize d anxiety disorder 87817517 F41.1 Nausea and vomiting 1693 2000 R11.2 361002 Diabetes mellitus 279719 09 E11.21 887334 End stage renal failure on dialysis 433963059 N18.6 Bursitis o f left shoulder 7128268007 49655 M75.52 645925 [id number] Alicia Hussein MD [facility] ([facility]) [address] [place] [address] [phone] 5 11/07/2024 16:17:10 11/07/2024 17:05:52 Hematemesis 8938502 K92.0 77490132 Generalize d anxiety disorder 42775718 F41.1 Essential hypertension 14890665 I10 Complicati on due to diabetes mellitus type 2 0511712638 9100 E11.8 Will hold Ozempic for now. Nausea and vomiting 1693 1999 R11.2 689351 improved. Health Concerns Section Related Observation LastModified by Organization Detai ls LastModified Time None Recorded Concern Status LastModified by Organization Details LastModified Time None Recorded Advance Directives Directive None Recorded Payers Insurance Date Sequence Insurance Name Policy Number Policy Ramon Covered Member ID Ramon Member ID Guarantor Name 01/26/2025 1 [place] Bharati Anthony [id number] Bharati Anthony 01/26/2025 2 [place] Bharati Anthony [id number] Bharati Anthony 01/26/2025 [place] [facility] Bharati Anthony [id number] Bharati Anthony 01/26/2025 [place] - [place]-FQ (MEDICARE) Bharati Anthony [id number] Bharati Anthony Notes Date Note Type Note Provider Name and Address Organization Details Recorded Time 06/08/2024 text/html CoughReported by PatientHPIFor severity, patient reportsworsening. For quality, patient reportsproductive. Alicia Hussein MD [address] [place] [address], [phone], [facility], [facility] 06/08/2024 15:56:07 07/30/2024 text/html DiabetesReported by PatientHPIFor associated symptoms, patient reportsincreased thirstbut reportsno increased appetiteandno increased urination. For duration, patient reportschronic. For control, patient reportstreated with diet and oral medications. For compliance, patient reportscompliant with medications. For self care, patient reportsmonitoring glucose weekly (4-5 times a week.). Hypertension IM/FMReported by PatientHPIFor quality, patient reportshere for check-up. For severity, patient reportsnormal (<120/<80 mmhg). For onset/timing, patient reportsgradual onset. For alleviating factors, patient reportsmedication. For associated symptoms, patient reportsno shortness of breath,no palpitations, andno chest pain. Alicia Hussein MD [address] [place] [address], [phone], [facility] 07/30/2024 13:53:22 10/26/2024 text/html Has been having episodes to where she is blacking out and she feels like she has no idea what is happening.Has been having nausea and vomiting for about six weeks now, has not been able to keep anything down.She has significant shoulder pain in the left shoulder. Alicia Hussein MD [address] [place] [address], [phone], [facility] 10/26/2024 12:18:03 11/07/2024 text/html Went to [facility] in [place]. Started out at [place] and was then transferred to [place].Had an EGD done there and it came back normal. Alicia Hussein MD [address] [place] [address], [phone], [facility] 11/07/2024 17:02:08 OBGyn Episode No OBEpisode recorded.
--- OUTSIDE RECORDS SUMMARY | 2025-02-06 13:03 | XMS_ITS | Clinical Summary ---
Author Organization [facility] Facility Address [address] [place] [address] Care Team Providers Care Asset Protection Associate Name Role Phone Herber Hussein MD Primary Care Provider [phone] Allergies Active Allergy Reactions Criticality Noted Date [...] not crush, chew, or split. Active Multiple Vitamins-Mineral s (RenaPlex) tablet Take by mouth Active rOPINIRole [...] and 5 mg in the evening. 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 05/25/2018 Acute nontraumatic kidney injury 05/25/2018 Essential hypertension 05/25/2018 Type 2 diabetes mellitus 05/25/2018 IgA nephropathy 05/25/2018 Thromboembolism of vein 06/12/2017 Tobacco use 04/26/2017 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 Harmful pattern of use of methamphetamine 2017 Splenic infarction 04/01/2017 Encounters Date Type Department Care Team Description 02/04/2025 Orders Only [facility] [address] [place] [phone] Bee Chavarria MD 02/04/[address] [place] [address] [facility], [facility] [address] [place] [address] Bee Chavarria MD End stage renal disease; Dependence on renal dialysis 01/30/2025 Orders Only [facility], [facility] [address] [place] [address] Bee Chavarria MD 01/28/[address] [place] [address] [facility], [facility] [address] [place] [address] Daisy Lindsay NP End stage renal disease; Dependence on renal dialysis 01/23/2025 Orders Only [facility], [facility] [address] [place] [address] Bee Chavarria MD 01/21/[address] [place] [address] [facility], [facility] [address] [place] [address] Daisy Lindsay NP End stage renal disease; Dependence on renal dialysis 01/16/2025 Orders Only [facility], [facility] [address] [place] [address] Bee Chavarria MD 01/14/[address] [place] [address] [facility], [facility] [address] [place] [address] Bee Chavarria MD End stage renal disease; Dependence on renal dialysis 01/09/2025 Orders Only [facility], [facility] [address] [place] [address] Bee Chavarria MD 01/07/2025 Treatment [facility] [address] [place] [address] Daisy Lindsay NP End stage renal disease; Dependence on renal dialysis 01/02/2025 [facility] [address] [place] [address] Bee Chavarria MD 12/26/2024 Orders Only [facility], [facility] [address] [place] [address] Bee Chavarria MD 12/26/2024 [facility] [address] [place] [address] Ana Viramontes NP End stage renal disease; Dependence on renal dialysis 12/19/[address] [place], [place] [address]rology [facility], [facility] [address] [place] [address] Daisy Lindsay NP End stage renal disease; Dependence on renal dialysis 12/19/2024 Orders Only [facility], [facility] [address] [place] [address] Bee Chavarria MD 12/17/2024 Orders Only [facility], [facility] [address] [place] [address] Bee Chavarria MD 12/14/2024 Orders Only [facility], [facility] [address] [place] [address] Bee Chavarria MD 12/12/2024 Orders Only [facility], [facility] [address] [place] [address] Bee Chavarria MD 12/10/2024 Treatment [facility] [address] [place] [address] Bee Chavarria MD End stage renal disease; Dependence on renal dialysis 11/28/2024 Orders Only [facility], [facility] [address] [place] [address] Bee Chavarria MD 11/26/2024 Orders Only [facility], [facility] [address] [place] [address] Bee Chavarria MD 11/26/[address] [place] [address] [facility], [facility] [address] [place] [address] Daisy Lindsay NP Heart failure; End stage renal disease; Dependence on renal dialysis 11/21/2024 [facility] [address] [place] [address] Bee Chavarria MD 11/21/2024 Treatment [facility], [facility] [address] [place] [address] Ana Viramontes NP End stage renal disease; Dependence on renal dialysis 11/14/2024 [facility] [address] [place] [address] Bee Chavarria MD 11/12/[address] [place] [address] [facility], [facility] [address] [place] [address] Ana Viramontes NP End stage renal disease; Dependence on renal dialysis 11/07/2024 Orders Only [facility], [facility] [address] [place] [address] Bee Chavarria MD from Last [...] Colonoscopy 06/11/2023 Colorectal Cancer Screening: Sigmoidoscopy 06/11/2023 Pneumococcal Vaccine: 50+ Ye ars (3 of 3 - PCV20 or PCV21) 07/23/2024 07/24/2019, 05/21/2019 Diabetes: Hemoglobin A1C 05/07/2025 025, 02/22/2024, 11/23/2023, Additional history exists Pneumococcal Vaccine: Peds ( 0 to 5 Years) and At-Risk Patients (6 to 49 Years) Discontinued 07/24/2019, 05/21/2019 Influenza Vaccine Completed 12/14/2024, , 12/29/2022, Additional history exists Procedures Procedure Name Priority Date/Time Associated Diagnosis Comments HEMOGLOBIN A1C Routine 02/04/2025 HEMOGLOBIN Routine 01/30/2025 POST DIALYSIS BUN Routine 01/30/2025 [facility]RA [facility] LAB RESULTS Routine 01/23/2025 DIFFERENTIAL WITH WBC Routine 01/23/2025 CBC Routine 01/23/2025 PLATELET COUNT Routine 01/23/2025 POST DIALYSIS BUN Routine 01/23/2025 IRON AND TIBC Routine 01/23/2025 ALBUMIN Routine 01/23/2025 PROTEIN, TOTAL, SERUM Routine 01/23/2025 PHOSPHATE ( PHOSPHORUS) Routine 01/23/2025 CALCIUM Routine 01/23/2025 CO2, TOTAL Routine 01/23/2025 CHLORIDE Routine 01/23/2025 SODIUM Routine 01/23/2025 BUN Routine 01/23/2025 CREATININE, SERUM Routine 01/23/2025 POTASSIUM Routine 01/23/2025 HEMATOLOGY Routine 01/16/2025 HEMATOLOGY Routine 01/09/2025 IMMUNO CHEMISTRY Routine 01/09/2025 HEMATOLOGY Routine 01/02/2025 HEMATOLOGY Routine 12/26/2024 SPECTRA AISSATOU LAB RESULTS Routine 12/19/2024 HD KINETICS Routine 12/19/2024 CHEMISTRY Routine 12/19/2024 POST CHEMISTRY Routine 12/19/2024 HEMATOLOGY Routine 12/19/2024 HEMATOLOGY Routine 12/17/2024 CHEMISTRY Routine 12/17/2024 HEMATOLOGY Routine 12/14/2024 HEMATOLOGY Routine 12/12/2024 HEMATOLOGY Routine 11/28/2024 HEMATOLOGY Routine 11/26/2024 SPECTRA AISSATOU LAB RESULTS Routine 11/21/2024 HD KINETICS Routine 11/21/2024 CHEMISTRY Routine 11/21/2024 POST CHEMISTRY Routine 11/21/2024 CHEMISTRY Routine 11/21/2024 TRACE ELEMENTS Routine 11/21/2024 HEMATOLOGY Routine 11/21/2024 HEMATOLOGY Routine 11/14/2024 HEMATOLOGY Routine 11/07/2024 from Last 3 Months Results * (ABNORMAL) Hemoglobin A1c (02/04/2025) Hemoglobin A1C 6.5(H) <5.7 % [facility] Comment: For someone without known diabetes, a hemoglobin A1c value of 6.5% or greater indicates that they may have diabetes and this should be confirmed with a follow-up test. For someone with known diabetes, a value <7% indicates that their diabetes is well controlled and a value greater than or equal to 7% indicates suboptimal control. A1c targets should be individualized based on duration of diabetes, age, comorbid conditions, and other considerations. Currently, no consensus exists regarding use of hemoglobin A1c for diagnosis of diabetes for children. 02/04/2025 02/02/2025 4:0 2 AM BISQUE CLEANER Narrative Resulting Agency Comment Performing Organization Information: Site ID: RIK Name: [facility] Address: [address] [place], [place] [address] [address] Director: Mitzy Claire MD Bee Cahvarria MD LAB BLOOD ORDERABLES Final Re sult Performing Organization Address City/[facility] Co de Phone Number [facility] [address] [place] [phone] * Post Dialysis BUN (01/30/2025) Only the most recent of2 resultswithin the time period is included. BUN Post Dialysis 13 7 - 25 mg/dL [facility] 01/30/2025 01/28/2025 5:5 6 PM BISQUE CLEANER Narrative Resulting Agency Comment Performing Organization Information: Site ID: RKI Name: [facility] Address: [address] [place] [phone] Director: Mitzy Claire MD us Bee Chavarria MD LAB BLOOD ORDERABLES Final Re sult Performing Organization Address [facility] Co de Phone Number [facility] [address] [place] [phone] * (ABNORMAL) Hemoglobin (01/30/2025) Hemoglobin 8.8(L) 11.7 - 14.0 g/dL [facility] 01/30/2025 01/28/2025 5:5 6 PM BISQUE CLEANER Narrative Resulting Agency Comment Performing Organization Information: Site ID: RIK Name: [facility] Address: [address] [place], [place] [address] [address] Director: Mitzy Claire MD Bee Chavarria MD LAB BLOOD ORDERABLES Final Re sult Performing Organization Address City/[facility]/ZIP Co de Phone Number [facility] [id number] [place] [phone] * (ABNORMAL) Iron and TIBC (01/23/2025) Pathologist [facility] Iron, Total 91 45 - 160 mcg/dL [facility] TIBC 220(L) 250 - 450 mcg/dL (calc) [facility] Iron Saturation (TSat) 41 16 - 45 % (calc) [facility] 01/23/2025 01/21/2025 9:4 0 AM BISQUE CLEANER Narrative Resulting Agency Comment Performing Organization Information: Site ID: [place] Name: [facility] Address: [address] [place] [phone] Director: Mitzy Claire MD Bee Chavarria MD LAB BLOOD ORDERABLES Final Re sult Performing Organization Address [facility] de Phone Number [facility] [address] * [facility] Lab Results (01/23/2025) Only the most recent of3 resultswithin the time period is included. Pathologist [facility] PCR 45.57 [facility] eKdrt/V 0.94 [facility] spKt/V (Daugirdas II) 1.20 [facility] eNPCR 0.71 [facility] eKt/V Gotch 0.94 Knowledg e Center nPCR_HD 0.80 [facility] spKt/V Gotch 1.22 Knowled ge Center eKt/V (Tattersall) 0.97 [facility] WSTDKT/V 2.1 [facility] 01/23/2025 01/23/2025 [facility] [place] LAB BLOOD ORDERABLES Final Result Performing Organization Address City/[facility]/ZIP Co de Phone Number [facility] Contact Performing lab Unknown, [place] * Differential with WBC (01/23/2025) WBC 5.2 3.8 - 10.8 Thousand/ uL [facility] Neutrophils Absolute 3,162 1,500 - 7,800 cells/uL [facility] Band Neutrophils Absolute, Manual Count CANCELED 0 - 750 cells/uL [facility] Comment:Result canceled by t he ancillary. Metamyelocytes Absolute CANCELED 0 cells/uL [facility] Comment:Result canceled by t he ancillary. Absolute Myelocytes CANCELED 0 cells/uL [facility] Comment:Result canceled by t he ancillary. Absolute Promyelocytes CANCELED 0 cells/uL [facility] Comment:Result canceled by t he ancillary. Lymphocytes Absolute 1,435 850 - 3,900 cells/uL [facility] Monocytes Absolute 312 200 - 950 cells/uL [facility] Eosinophils Absolute 250 15 - 500 cells/uL [facility] Basophils Absolute 42 0 - 200 cells/uL [facility] Blasts Absolute CANCELED 0 cells/uL [facility] Comment:Result canceled by t he ancillary. NRBC Absolute CANCELED 0 cells/uL [facility] Comment:Result canceled by t he ancillary. Neutrophils Relative 60.8 % [facility] Bands Absolute CANCELED % [facility] Comment:Result canceled by t he ancillary. Metamyelocytes Percent CANCELED % [facility] Comment:Result canceled by t he ancillary. Myelocytes Relative CANCELED % [facility] Comment:Result canceled by t he ancillary. Promyelocytes Relative CANCELED % [facility] Comment:Result canceled by t he ancillary. Lymphocytes 27.6 % [facility] Variant lymphocytes/100 WBC (Bld) CANCELED 0 - 10 % [facility] Comment:Result canceled by t he ancillary. Monocytes 6.0 % [facility] Eosinophils 4.8 % [facility] Basophils Relative 0.8 % [facility] Blasts CANCELED % [facility] Comment:Result canceled by t he ancillary. nRBC CANCELED 0 /100 WBC [facility] Comment:Result canceled by t he ancillary. Comment(s) CANCELED [facility] Comment:Result canceled by t he ancillary. 01/23/2025 01/21/2025 9:4 0 AM BISQUE CLEANER Narrative Resulting Agency Comment Performing Organization Information: Site ID: RIK Name: [facility] Address: [address] [place] [phone] Director: Mitzy Claire MD Bee Chavarria MD LAB BLOOD ORDERABLES Final Re sult Performing Organization Address [facility] Co de Phone Number [facility] [address] [place] [phone] * Platelet count (01/23/2025) Pathologist [facility] Platelets 144 140 - 400 Thousand/uL [facility] 01/23/2025 01/21/2025 9:4 0 AM BISQUE CLEANER Narrative Resulting Agency Comment Performing Organization Information: Site ID: RIK Name: [facility] Address: [address] [place] [phone] Director: Mitzy Claire MD Bee Chavarria MD LAB BLOOD ORDERABLES Final Re sult Performing Organization Address [facility] Co de Phone Number [facility] [id number] [place] [phone] * (ABNORMAL) CBC (01/23/2025) WBC 5.2 3.8 - 10.8 Thousand/u L [facility] RBC 2.44(L) 3.80 - 5.10 Million/uL [facility] Hemoglobin 8.6(L) 11.7 - 14.0 g/dL [facility] Hematocrit 26.3(L) 35.0 - 45.0 % [facility] MCV 107.8(H) 80.0 - 100.0 fL [facility] MCH 35.2(H) 27.0 - 33.0 pg [facility] MCHC 32.7 32.0 - 36.0 g/dL [facility] Comment: For adults, a slight decrease in the calculated MCHC value (in the range of 30 to 32 g/dL) is most likely not clinically significant; however, it should be interpreted with caution in correlation with other red cell parameters and the patient's clinical condition. RDW 13.3 11.0 - 15.0 % [facility] 01/23/2025 01/21/2025 9:4 0 AM BISQUE CLEANER Narrative Resulting Agency Comment Performing Organization Information: Site ID: RIK Name: [facility] Address: [address] [place] [phone] Director: Mitzy Claire MD Bee Chavarria MD LAB BLOOD ORDERABLES Final Re sult Performing Organization Address [facility]/ZIP Co de Phone Number [facility] [address] [place] [phone] * (ABNORMAL) BUN (01/23/2025) BUN 51(H) 7 - 25 mg/dL [facility] 01/23/2025 01/21/2025 9:4 0 AM BISQUE CLEANER Narrative Resulting Agency Comment Performing Organization Information: Site ID: [place] Name: [facility] Address: [address] [place] [phone] Director: Mitzy Claire MD us Bee Chavarria MD LAB BLOOD ORDERABLES Final Re sult Performing Organization Address City/[facility]/ZIP Co de Phone Number [facility] [address] [place] [address] * Sodium (01/23/2025) Sodium 141 135 - 146 mmol/L [facility] 01/23/2025 01/21/2025 9:4 0 AM BISQUE CLEANER Narrative Resulting Agency Comment Performing Organization Information: Site ID: RIK Name: [facility] Address: [address] [place] [phone] Director: Mitzy Claire MD Bee Chavarria MD LAB BLOOD ORDERABLES Final Re sult Performing Organization Address City/[facility]/ZIP Co de Phone Number [facility] [address] [place], [place] [address] [address] * (ABNORMAL) Protein, total (01/23/2025) Total Protein 6.0(L) 6.1 - 8.1 g/dL [facility] 01/23/2025 01/21/2025 9:4 0 AM BISQUE CLEANER Narrative Resulting Agency Comment Performing Organization Information: Site ID: RIK Name: [facility] Address: [address] [place] [phone] Director: Mitzy Claire MD Bee Chavarria MD LAB BLOOD ORDERABLES Final Re sult Performing Organization Address City/[facility]/ZIP Co de Phone Number [facility] [address] [place], [place] [address] [address] * Potassium (01/23/2025) Potassium 4.4 3.5 - 5.3 mmol/L [facility] 01/23/2025 01/21/2025 9:4 0 AM BISQUE CLEANER Narrative Resulting Agency Comment Performing Organization Information: Site ID: RIK Name: [facility] Address: [address] [place], [place] [address] [address] Director: Mitzy Claire MD Bee Chavarria MD LAB BLOOD ORDERABLES Final Re sult Performing Organization Address [facility] Co de Phone Number [facility] [address] [place] [phone] * (ABNORMAL) Phosphorus (01/23/2025) Phosphorus 5.6(H) 3.0 - 4.5 mg/dL [facility] 01/23/2025 01/21/2025 9:4 0 AM BISQUE CLEANER Narrative Resulting Agency Comment Performing Organization Information: Site ID: RIK Name: [facility] Address: [address] [place] [phone] Director: Mitzy Claire MD Bee Chavarria MD LAB BLOOD ORDERABLES Final Re sult Performing Organization Address [facility] Co de Phone Number [facility] [address] [place] [phone] * (ABNORMAL) Creatinine, serum (01/23/2025) Creatinine 6.27(H) 0.50 - 1.03 mg/dL [facility] 01/23/2025 01/21/2025 9:4 0 AM BISQUE CLEANER Narrative Resulting Agency Comment Performing Organization Information: Site ID: RIK Name: [facility] Address: [address] [place] [phone] Director: Mitzy Claire MD us Bee Chavarria MD LAB BLOOD ORDERABLES Final Re sult Performing Organization Address [facility] Co de Phone Number [facility] [address] [place] [phone] * Chloride (01/23/2025) Chloride 105 98 - 110 mmol/L [facility] 01/23/2025 01/21/2025 9:4 0 AM BISQUE CLEANER Narrative Resulting Agency Comment Performing Organization Information: Site ID: RIK Name: [facility] Address: [address] [place], [place] [address] [address] Director: Mitzy Claire MD us Bee Chavarria MD LAB BLOOD ORDERABLES Final Re sult Performing Organization Address City/[facility]/ZIP Co de Phone Number [facility] [address] [facility] [place] [address] * CO2 (01/23/2025) Bicarbonate (CO2) 23 20 - 29 mmol/L [facility] 01/23/2025 01/21/2025 9:4 0 AM BISQUE CLEANER Narrative Resulting Agency Comment Performing Organization Information: Site ID: RIK Name: [facility] Address: [address] [place] [phone] Director: Mitzy Claire MD us Bee Chavarria MD LAB BLOOD ORDERABLES Final Re sult Performing Organization Address City/[facility]/ZIP Co de Phone Number [facility] [address] [place] [address] * Calcium (01/23/2025) Calcium 9.1 8.6 - 10.0 mg/dL [facility] 01/23/2025 01/21/2025 9:4 0 AM BISQUE CLEANER Narrative Resulting Agency Comment Performing Organization Information: Site ID: RIK Name: [facility] Address: [address] [place] [phone] Director: Mitzy Claire MD us Bee Chavarria MD LAB BLOOD ORDERABLES Final Re sult [facility] [address] [place] [address] * Albumin (01/23/2025) Pathologist [facility] Albumin 3.9 3.6 - 5.1 g/dL [facility] 01/23/2025 01/21/2025 9:4 0 AM BISQUE CLEANER Narrative Resulting Agency Comment Performing Organization Information: Site ID: IN Name: [facility] Address: [address] [place] [address] Director: Mitzy Claire MD Bee Chavarria MD LAB BLOOD ORDERABLES Final Re sult Performing Organization Address [facility] de Phone Number [facility] [address] [place] [address] * (ABNORMAL) HEMATOLOGY (01/16/2025) Only the most recent of13 resultswithin the time period is included. Pathologist [facility] Hemoglobin 8.8(L) 12.0 - 16.0 g/dL [facility] Hemoglobin x 3 26.4(L) 36.0 - 48.0 % [facility] 01/16/2025 01/17/2025 10: 37 AM CDT Narrative [facility] - 01/17/2025 Unless otherwise specified, test(s) performed at: [facility], [address] [place] [address] PLATE SLITTER AND INSPECTOR: Michael Knox M.D. For any questions, please call customer service at FREQUENCY:OTHER Resulting Agency Comment Specimen source: Blood Bee Chavarria MD LAB BLOOD ORDERABLES Final Re sult Performing Organization Address [facility] Co de Phone Number [facility] See order comments or contact performing lab Unknown, [place] * IMMUNO CHEMISTRY (01/09/2025) Pathologist [facility] Hepatitis C Antibody Nonreactive Nonreactive [facility] Comment: No HCV antibody detected. The above test result was obtained using Siemens Centaur XP chemiluminescent method. Results obtained with different assay methods or kits cannot be used interchangeably. S/CO Ratio 0.47 0.00 - 0.79 Productiv Comment: s/co ratio Interpretation Supplemental testing <0.80 Nonreactive No further testing required. 0.80-0.99 Equivocal HCV RNA Quantitative Real-Time PCR is recommended. 1.00->11.00 Reactive HCV RNA Quantitative Real-Time PCR is recommended to distinguish active from resolved cases. 01/09/2025 01/10/2025 10: 08 AM CDT Narrative [facility] - 01/10/2025 Unless otherwise specified, test(s) performed at: [facility], [address] [place] [address] PLATE SLITTER AND INSPECTOR: Michael Knox M.D. For any questions, please call customer service at FREQUENCY:OTHER Resulting Agency Comment Specimen source: Serum us Bee Chavarria MD LAB BLOOD ORDERABLES Final Re sult Performing Organization Address [facility] de Phone Number [facility] See order comments or contact performing lab Unknown, [place] * HD KINETICS (12/19/2024) Only the most recent of2 resultswithin the time period is included. % Urea Reduction 73 65 - 80 % [facility] 12/19/2024 12/20/2024 10: 31 AM CDT Narrative [facility] - 12/20/2024 Unless otherwise specified, test(s) performed at: [facility], [address] [place] [address] PLATE SLITTER AND INSPECTOR: Michael Knox M.D. For any questions, please call customer service at FREQUENCY:MONTHLY Resulting Agency Comment Specimen source: Plasma us Bee Chavarria MD LAB BLOOD ORDERABLES Final Re sult Performing Organization Address [facility] Co de Phone Number [facility] See order comments or contact performing lab Unknown, [place] * POST CHEMISTRY (12/19/2024) Only the most recent of2 resultswithin the time period is included. BUN Post Dialysis 11 6 - 19 mg/dL [facility] 12/19/2024 12/20/2024 10: 31 AM CDT Narrative [facility] - 12/20/2024 Unless otherwise specified, test(s) performed at: [facility], [address] [place] [address] PLATE SLITTER AND INSPECTOR: Michael Knox M.D. For any questions, please call customer service at FREQUENCY:MONTHLY Resulting Agency Comment Specimen source: Plasma us Bee Chavarria MD LAB BLOOD ORDERABLES Final Re sult [facility] See order comments or contact performing lab Unknown, [place] * (ABNORMAL) [facility] (12/19/2024) Only the most recent of4 resultswithin the time period is included. BUN 41(H) 6 - 19 mg/dL [facility] Creatinine 4.78(H) 0.60 - 1.30 mg/dL [facility] BUN/Creatinine Ratio 8.6(L) 10.0 - 20.0 [facility] Sodium 139 136 - 145 mEq/L [facility] Potassium 4.4 3.5 - 5.1 mEq/L [facility] Chloride 103 96 - 108 mEq/L [facility] Bicarbonate (CO2) 25 22 - 29 mEq/L [facility] Calcium 8.8 8.4 - 10.2 mg/dL [facility] Corrected Calcium 9.1 8.4 - 10.2 mg/dL [facility] Comment: Corrected Calcium is not equivalent to measured Ionized Calcium. Phosphorus 2.7 2.6 - 4.5 mg/dL [facility] Calcium Phosphorus Product 24 0 - 54 [facility] Calcium Phosporus Product, Cor 25 0 - 54 [facility] Total Protein 5.6(L) 6.0 - 8.5 g/dL [facility] Albumin 3.6 3.5 - 5.2 g/dL [facility] Globulin, Total 2.0 2.0 - 4.0 g/dL [facility] A/G Ratio 1.8 1.0 - 2.0 [facility] Iron 93 30 - 160 mcg/dL [facility] UIBC 144(L) 155 - 355 mcg/dL [facility] TIBC 237 185 - 515 mcg/dL [facility] Iron Saturation (TSat) 39 20 - 55 % [facility] 12/19/2024 12/20/2024 10: 21 AM CDT Narrative [facility] - 12/20/2024 Unless otherwise specified, test(s) performed at: [facility], [address] [place] [address] PLATE SLITTER AND INSPECTOR: Michael Knox M.D. For any questions, please call customer service at FREQUENCY:MONTHLY Resulting Agency Comment Specimen source: Serum Bee Chavarria MD LAB BLOOD ORDERABLES Final Re sult Performing Organization Address [facility] de Phone Number [facility] See order comments or contact performing lab Unknown, [place] * TRACE ELEMENTS (11/21/2024) Aluminum <5 0 - 10 mcg/L Productiv Comment: This test was developed and its performance characteristics determined by [facility]. It has not been cleared or approved by the FDA. The laboratory is regulated under CLIA as qualified to perform high complexity testing. This test is used for clinical purposes. It should not be regarded as investigational or for research. 11/21/2024 11/22/2024 10: 12 AM CDT Narrative [facility] - 11/22/2024 Unless otherwise specified, test(s) performed at: [facility], [address] [place] [address] PLATE SLITTER AND INSPECTOR: Micheal Knox M.D. For any questions, please call customer service at FREQUENCY:MONTHLY Resulting Agency Comment Specimen source: Serum Bee Chavarria MD LAB BLOOD ORDERABLES Final Re sult Performing Organization Address [facility] de Phone Number [facility] See order comments or contact performing lab Unknown, [place] from Last 3 Months Insurance Medicaid [place] ([id number]) [facility] Medicare Care Teams Asset Protection Associate Relationship Specialty Start Date End Date Herber Hussein MD [address] [place] [address] PCP - General Family Medicine 07/14/18
--- OUTSIDE RECORDS SUMMARY | 2025-02-06 13:03 | XMS_ITS | Encounter Summary ---
Author Organization [place] [facility] [employer] [employer] Address [address] [facility] [address] [place] [address] Phone Care Team Providers Care Rolled Gold Plater Name Role Phone Herber Hussein MD Primary Care Provider [phone] Reason for Visit * Reason Comments Med Refill Encounter Details Date Type Department Care Team (Late st Contact Info) Description 08/21/2021 Refill [place] [facility] [employer] [address] [place] [address] Mohsen Mann MD Social History Tobacco Use Types Packs/Day Years [...] on filedocumented in this encounter Care Teams Rolled Gold Plater Relationship Specialty Start Date End Date Herber Hussein MD [address] [place] [address] PCP - General Family Medicine 07/14/18 documented as of this encounter
--- OUTSIDE RECORDS SUMMARY | 2025-02-06 13:03 | XMS_ITS | Encounter Summary ---
Author Organization [facility] [employer] Address [address] [place] [address] Phone Care Team Providers Care Gum Scoring Machine Operator Name Role Phone Herber Hussein MD Primary Care Provider [phone] Encounter Details Date Type Department Care Team (Late st Contact Info) Description 02/04/2025 [facility] [address] [place] [address] Bee Chavarria MD [address] [place] [address] End stage renal disease; Dependence [...] Dialysis Note - Bee Chavarria MD - 02/04/2025 12:00 AM CST Patient: Bharati Anthony, 1975, 49y, F Dialysis Location: [facility] Attending Rubber Goods Tester Water: Bee Chavarria Service Date: 02/04/2025 Service Provider: Bee Chavarria MD I met face to face with the patient today. OVERVIEW The patient presented with ESRD on dialysis Primary cause of renal failure: Type 2 diabetes mellitus with diabetic chronic kidney disease Comments: VSS, seen on HD machine Medications and labs reviewed. LAST HOSPITALIZATION Discharge Diagnosis: K31.84 Gastroparesis Admission Date 10/28/24 Discharge Date 11/01/24 TRANSPLANT Comments: She has received paperwork from [facility] for transplant. She has now decided again against tranplant. Ongoing discussions. DIALYSIS PRESCRIPTION IHD 3x Week Start date: 01/30/25 Dialyzer: FX CorAL 80 BFR: 450 DFR: Manual 800 Potassium: 3.0 Sodium: 137 EDW: 78.5 Duration: 2:45 Calcium: 2.5 Bicarb: 40 Rx updated on: 01/28/2025 TREATMENT ASSESSMENT Comments: Stable. BP Stand Pre 02/04/2025: 151/90 02/01/2025: 140/65 01/30/2025: 162/75 BP Sit Pre 02/04/2025: 113/79 02/01/2025: 139/69 01/30/2025: 160/71 BP Stand Post 02/04/2025: 132/69 02/01/2025: 126/53 01/30/2025: 132/60 BP Sit Post 02/04/2025: 139/67 02/01/2025: 141/65 01/30/2025: 134/78 Prescribed Tx time 02/04/2025: 2:45 02/01/2025: 2:45 01/30/2025: 2:45 Tx Duration 02/04/2025: 2:49 02/01/2025: 3:53 01/30/2025: 2:48 Missed Treatments 0 - last 30 days 0 - last 60 days FLUID ASSESSMENT Comments: Stable. EDW (kg) 02/04/2025: 78.5 02/01/2025: 78.5 01/30/2025: 78.5 Weight Pre (kg) 02/04/2025: 81.9 02/01/2025: 85.1 01/30/2025: 81.8 Weight Post (kg) 02/04/2025: 79.8 02/01/2025: 81.7 01/30/2025: 79.7 PWV (kg) 02/04/2025: 1.3 02/01/2025: 3.2 01/30/2025: 1.2 UF Rate (mL/kg/hr) 02/04/2025: 9.3 02/01/2025: 10.7 01/30/2025: 9.4 ADEQUACY ASSESSMENT Comments: Stable trend. To repeat kt/v spKt/V, URR 01/23/2025: 1.2, 66.7 12/19/2024: 1.5, 73.0 11/21/2024: 1.5, 74.0 ACCESS ASSESSMENT Access Type: AVFistula Access SubType: Transposed Access Status: Active (In Use) - 10/27/2020 Access Location: Right Thigh Created: 08/19/2020 Flow 02/01/2025: ?199912/26/2024: ?199908/29/2024: ?1999 Vascular access reviewed. Current access is permanent and functioning well. ANEMIA ASSESSMENT Comments: On IV iron and DORINDA protocol. Has seen hematology in the past with BM biopsy. Anemia from ESRD. Showing slow improvement: continue DORINDA/Iron HGB, TSAT 01/30/2025: 8.8, - 01/23/2025: 8.6, 41.0 01/16/2025: 8.8, - Ferritin 12/17/2024: 861.0 11/21/2024: 1058.0 08/24/2024: 1622.0 Epoetin Mata (Epogen), IVP (units) 02/01/2025: 76886 01/30/2025: 19587 01/28/2025: 27486 Iron Sucrose (Venofer) (mg) 01/28/2025: 50 01/21/2025: 50 01/14/2025: 50 BMM ASSESSMENT Comments: PTH improving Phos and Ca at goal. Labs next week. PTH, Intact 11/21/2024: 256.0 08/24/2024: 446.0 Calcium, Phosphorus 01/23/2025: 9.1, 5.6 12/19/2024: 8.8, 2.7 11/21/2024: 8.6, 5.3 Vitamin D (Calcitriol) Oral (mcg) 02/01/2025: 1.0 01/30/2025: 1.0 01/28/2025: 1.0 NUTRITION ASSESSMENT Comments: Albumin did drop after recent illness from gastroparesis. Stable at least did not drop this month. Potassium, Albumin 01/23/2025: 4.4, 3.9 12/19/2024: 4.4, 3.6 11/21/2024: 4.4, 3.6 eNPCR 01/23/2025: 0.71 12/19/2024: 0.69 11/21/2024: 0.7 PHYSICAL EXAM Exam Performed. Vital Signs Reviewed. CV - Blood pressure noted. EXT - No edema. EXT - No ulcers. AVF/AVG Positive thrill/bruit. DIAGNOSIS Chief Complaint: N18.6 End stage renal disease Patient is stable. Patient data updated 02/04/2025 at 10:38 AM Signed By: Bee Chavarria MD on 02/04/2025 10:45:48 AM documented in this encounter Plan of Treatment Not on file documented as of this encounter Visit Diagnoses Diagnosis End stage renal disease Dependence on renal dialysis documented in this encounter Care Teams Gum Scoring Machine Operator Relationship Specialty Start Date End Date Herber Hussein MD [address] [place] [address] PCP - General Family Medicine 07/14/18 documented as of this encounter
--- OUTSIDE RECORDS SUMMARY | 2025-02-06 13:03 | XMS_ITS | Encounter Summary ---
Author Organization [facility] [employer] Address [address] [place] [address] Phone Care Team Providers Care Umbrella Tipper Name Role Phone Herber Hussein MD Primary Care Provider [phone] Reason for Visit * Reason Comments Med Refill Encounter Details Date Type Department Care Team (Late st Contact Info) Description 06/23/2024 Refill [facility] [employer] [address] [place] [address] Bee Chavarria MD [address] [place] [address] Social History Tobacco Use Types [...] on filedocumented in this encounter Care Teams Umbrella Tipper Relationship Specialty Start Date End Date Herber Hussein MD [address] [place] [address] PCP - General Family Medicine 07/14/18 documented as of this encounter
--- OUTSIDE RECORDS SUMMARY | 2025-02-06 13:03 | XMS_ITS | Encounter Summary ---
Author Organization [place] [facility] [employer], [employer] Address [address] [facility] [address] [place] [address] Phone Care Team Providers Care Animal Cop Name Role Phone Herber Hussein MD Primary Care Provider [phone] Reason for Visit * Reason Comments Med Refill Encounter Details Date Type Department Care Team (Late st Contact Info) Description 11/23/2021 Refill [place] [facility] [employer] [address] [place] [address] Mohsen Mann MD Social History Tobacco Use [...] on filedocumented in this encounter Care Teams Animal Cop Relationship Specialty Start Date End Date Herber Hussein MD [address] [place] [address] PCP - General Family Medicine 07/14/18 documented as of this encounter
--- OUTSIDE RECORDS SUMMARY | 2025-02-06 13:03 | XMS_ITS | Encounter Summary ---
Author Organization [place] [facility] [employer] [employer] Address [address] [place] [address] Phone Care Team Providers Care Lens Gauger Name Role Phone Herber Hussein MD Primary Care Provider [phone] Reason for Visit * Reason Comments Med Refill Encounter Details Date Type Department Care Team (Late st Contact Info) Description 10/29/2020 Refill [place] [facility] [employer] [address] [place] [address] Mohsen Mann MD Social History Tobacco Use [...] on filedocumented in this encounter Care Teams Lens Gauger Relationship Specialty Start Date End Date Herber Hussein MD [address] [place] [address] PCP - General Family Medicine 07/14/18 documented as of this encounter
--- OUTSIDE RECORDS SUMMARY | 2025-02-06 13:03 | XMS_ITS | Encounter Summary ---
Author Organization [place] [facility] [employer] [employer] Address [address] [place] [address] Phone Care Team Providers Care Comparative Sociology Professor Name Role Phone Herber Hussein MD Primary Care Provider Reason for Visit * Reason Comments Med Refill Encounter Details Date Type Department Care Team (Late st Contact Info) Description 01/30/2021 Refill [facility] [facility] [address] [place] [address] Mohsen Mann MD Social History Tobacco Use [...] on filedocumented in this encounter Care Teams Comparative Sociology Professor Relationship Specialty Start Date End Date Herber Hussein MD [address] [place] [address] PCP - General Family Medicine 07/14/18 documented as of this encounter
--- OUTSIDE RECORDS SUMMARY | 2025-02-06 13:03 | XMS_ITS | Encounter Summary ---
Author Organization [facility] [facility] [employer] [employer] Address [address] [place] [address] Phone Care Team Providers Care Barrel Lathe Operator Inside Name Role Phone Herber Hussein MD Primary Care Provider [phone] Reason for Visit * Reason Comments Med Refill Encounter Details Date Type Department Care Team (Late st Contact Info) Description 02/08/2024 Refill [facility] [employer] [address] [place] [address] Bee Chavarria MD [address] [place] [address] Social History Tobacco Use Types [...] (02/08/2024) Hemoglobin 8.9(L) 12.0 - 16.0 g/dL [facility] Hemoglobin x 3 26.7(L) 36.0 - 48.0 % [facility] 02/08/2024 02/09/2024 12: 25 PM CHILDREN'S MINISTER Narrative [facility] - 02/09/2024 Unless otherwise specified, test(s) performed at: [facility], [address] [place], [place] [id number] [employer] BRAKE LINING FINISHER HELPER: Michael Knox M.D. For any questions, please call customer service at FREQUENCY:OTHER Resulting Agency Comment Specimen source: Blood us Bee Chavarria MD LAB BLOOD ORDERABLES Final Re sult [facility] [employer] [employer] See order comments or contact performing lab Unknown, [place] documented in this encounter Visit Diagnoses Not on filedocumented in this encounter Care Teams Barrel Lathe Operator Inside Relationship Specialty Start Date End Date Herber Hussein MD [address] [place] [address] PCP - General Family Medicine 07/14/18 documented as of this encounter
--- OUTSIDE RECORDS SUMMARY | 2025-02-06 13:03 | XMS_ITS | Encounter Summary ---
Author Organization [place] [facility] [employer] Address [address] [place] [address] Phone Care Team Providers Care Neighborhood Coordinator Name Role Phone Herber Hussein MD Primary Care Provider [phone] Reason for Visit * Reason Comments Med Refill Encounter Details Date Type Department Care Team (Late st Contact Info) Description 02/21/2024 Refill [facility] [address] [place] [address] Bee Chavarria MD [address] [place] [address] Social History Tobacco Use Types [...] on filedocumented in this encounter Care Teams Neighborhood Coordinator Relationship Specialty Start Date End Date Herber Hussein MD [address] [place] [address] PCP - General Family Medicine 07/14/18 documented as of this encounter
--- OUTSIDE RECORDS SUMMARY | 2025-02-06 13:03 | XMS_ITS | Encounter Summary ---
Author Organization [facility] Address [address] [facility] [address] [place] [address] Phone Care Team Providers Care Analytical Manager Name Role Phone Herber Hussein MD Primary Care Provider [phone] Reason for Visit * Reason Comments Med Refill Encounter Details Date Type Department Care Team ([facility] st Contact Info) Description 11/20/2020 Refill [place] [facility] [address] [place] [address] Mohsen Mann MD Social History Tobacco Use [...] on filedocumented in this encounter Care Teams Analytical Manager Relationship Specialty Start Date End Date Herber Hussein MD [address] [place] [address] PCP - General Family Medicine 07/14/18 documented as of this encounter
--- OUTSIDE RECORDS SUMMARY | 2025-02-06 13:04 | XMS_ITS | Encounter Summary ---
Author Organization [place] [facility] [employer] [employer] Address [address] [place] [address] Phone Care Team Providers Care Car Trimmer Name Role Phone Herber Hussein MD Primary Care Provider [phone] Encounter Details Date Type Department Care Team (Late st Contact Info) Description 11/08/2018 Orders Only [facility] [address] [place] [address] Sherry Lau MA [address] [place] [address] Chronic kidney disease stage 4 [...] Agency Comment Performing Organization Information: Site ID: [place] Name: [employer] Address: [address] [facility] [place] [address] Director: Jadiel Winslow D.O., MPH us Mohsen [...] Performing Organization Information: Site ID: [id number] Name: [email or web address] Address: [address] [place] [id number] Director: Jadiel Winslow D.O., MPH Mohsen Mann [...] Performing Organization Information: Site ID: [id number] Name: [email or web address] Address: [address] [address] Director: Jadiel Winslow D.O., MPH us Mohsen Mann MD LAB BLOOD ORDERABLES Fi nal Result CYNDIE STJuan AGEE documented in this encounter Visit Diagnoses Diagnosis Chronic kidney disease stage 4 (HCC) Essential hypertension documented in this encounter Care Teams Car Trimmer Relationship Specialty Start Date End Date Herber Hussein MD [address] [place] [address] PCP - General Family Medicine 07/14/18 documented as of this encounter
--- OUTSIDE RECORDS SUMMARY | 2025-02-06 13:04 | XMS_ITS | Encounter Summary ---
Author Organization [place] [facility] [employer] Address [address] [facility] [address] [place] [address] Phone Care Team Providers Care Tv Production Assistant Name Role Phone Herber Hussein MD Primary Care Provider [phone] Encounter Details Date Type Department Care Team (Late st Contact Info) Description 08/24/2018 Orders Only [facility] [address] [place] [address] Mohsen Mann MD Chronic kidney disease stage 4 (HCC) Social [...] (HCC) documented in this encounter Care Teams Tv Production Assistant Relationship Specialty Start Date End Date Herber Hussein MD [address] [place] [address] PCP - General Family Medicine 07/14/18 documented as of this encounter
--- OUTSIDE RECORDS SUMMARY | 2025-02-06 13:04 | XMS_ITS | Encounter Summary ---
Author Organization [place] [facility], [facility] Address [address] [place] [address] Phone Care Team Providers Care Molasses And Caramel Operator Name Role Phone Herber Hussein MD Primary Care Provider [phone] Encounter Details Date Type Department Care Team (Late st Contact Info) Description 01/30/2025 Orders Only [facility] [address] [place] [address] Bee Chavarria MD [address] [place] [address] Social History Tobacco Use Types [...] as of this encounter Plan of Treatment Pending Results Name Type Priority Associated Diagnoses Date /Time BUN Lab Routine 01/30/2025 documented as of this encounter Procedures Procedure Name Priority Date/Time Associated Diagnosis Comments POST DIALYSIS BUN Routine 01/30/2025 HEMOGLOBIN Routine 01/30/2025 documented in this encounter Results * (ABNORMAL) Hemoglobin (01/30/2025) Hemoglobin 8.8(L) 11.7 - 14.0 g/dL [facility] 01/30/2025 01/28/2025 5:5 6 PM LAND MANAGEMENT SUPERVISOR Narrative Resulting Agency Comment Performing Organization Information: Site ID: [id number] Name: [facility] Address: [address] [place], [place] [address] [place] [address] Director: Mitzy Claire MD us Bee Chavarria MD LAB BLOOD ORDERABLES Final Re sult Performing Organization Address City/[facility] Co de Phone Number [facility]ulam Johnson-Shellie [address] [place] [phone] * Post Dialysis BUN (01/30/2025) BUN Post Dialysis 13 7 - 25 mg/dL [facility] 01/30/2025 01/28/2025 5:5 6 PM LAND MANAGEMENT SUPERVISOR Narrative Resulting Agency Comment Performing Organization Information: Site ID: [id number] Name: [facility] Address: [address] [place] [phone] Director: Mitzy Claire MD Bee Chavarria MD LAB BLOOD ORDERABLES Final Re sult Performing Organization Address City/[facility] Co de Phone Number [facility] Reid [address] [place] [phone] documented in this encounter Visit Diagnoses Not on filedocumented in this encounter Care Teams Molasses And Caramel Operator Relationship Specialty Start Date End Date Herber Hussein MD [address] [place] [address] PCP - General Family Medicine 07/14/18 documented as of this encounter
--- OUTSIDE RECORDS SUMMARY | 2025-02-06 13:04 | XMS_ITS | Encounter Summary ---
Author Organization [place] [facility] [employer] [employer] Address [address] [place] [address] Phone Care Team Providers Care Clinical Editor Name Role Phone Herber Hussein MD Primary Care Provider [phone] Reason for Visit * Reason Comments Med Refill Encounter Details Date Type Department Care Team (Late st Contact Info) Description 05/06/2020 Refill [place] [facility] [address] [place] [address] Mohsen Mann MD Social History Tobacco Use [...] filedocumented in this encounter Care Teams Clinical Editor Relationship Specialty Start Date End Date Herber Hussein MD [address] [place] [address] PCP - General Family Medicine 07/14/18 documented as of this encounter
--- OUTSIDE RECORDS SUMMARY | 2025-02-06 13:04 | XMS_ITS | Encounter Summary ---
Author Organization [facility] [employer] Address [address] [place] [address] Phone Care Team Providers Care Back Hanger Name Role Phone Herber Hussein MD Primary Care Provider Encounter Details Date Type Department Care Team (Late st Contact Info) Description 02/04/2025 Orders Only [facility] [address] [place] [address] Bee Chavarria MD [address] [place] [address] Social History Tobacco Use Types [...] Associated Diagnosis Comments HEMOGLOBIN A1C Routine 02/04/2025 documented in this encounter Results * (ABNORMAL) Hemoglobin A1c (02/04/2025) Hemoglobin A1C 6.5(H) <5.7 % [facility] Comment: For someone without known [...] for children. 02/04/2025 02/02/2025 4:0 2 AM COMPUTER APPLICATIONS INSTRUCTOR Narrative Resulting Agency Comment Performing Organization Information: Site ID: [place] Name: [facility] Address: [address] [place] [address] Director: Mitzy Claire MD us Bee Chavarria MD LAB BLOOD ORDERABLES Final Re sult [facility] [address] [facility] [place] [address] documented in this encounter Visit Diagnoses Not on filedocumented in this encounter Care Teams Back Hanger Relationship Specialty Start Date End Date Herber Hussein MD [address] [place] [address] PCP - General Family Medicine 07/14/18 documented as of this encounter
--- OUTSIDE RECORDS SUMMARY | 2025-02-06 13:04 | XMS_ITS | Encounter Summary ---
Author Organization [facility] [employer] Address [address] [facility] [address] [place] [address] Phone Care Team Providers Care Load Tallier Name Role Phone Herber Hussein MD Primary Care Provider [phone] Encounter Details Date Type Department Care Team (Late st Contact Info) Description 12/11/2018 Orders Only [facility] [address] [place] [address] Tl Lawson, [place] Chronic kidney [...] on file documented as of this encounter Functional Status * Question Answer Date of Assessment Author BP 168/110 12/12/2018 11:36 AM Nena Bustillos MA Pulse 64 12/12/2018 11:36 AM Nena Bustillos MA Height 69 12/12/2018 11:36 AM Nena Bustillos MA Weight 2585.6 12/12/2018 11:36 AM Nena Bustillos MA * BMI (Calculated) Answer Date of Assessment Author 23.9 12/12/2018 11:36 AM EDCourtney Moran MA * BP Location Answer Date of Assessment Author Left arm 12/12/2018 11:36 AM Courtney Zamudio MA * Question Answer Date of Assessment Author BP 168/110 12/12/2018 11:36 AM EDT Nena Oakes MA Height 69 12/12/2018 11:36 AM EDT Nena OakesHORACIO Weight 2585.6 12/12/2018 11:36 AM EDT Nena Oakes MA * BMI (Calculated) Answer Date of Assessment Author 23.9 12/12/2018 11:36 AM EDCourtney Moran MA * BP Location Answer Date of Assessment Author Left arm 12/12/2018 11:36 AM Courtney Zamudio MA documented as of this encounter Progress Notes [...] HEPATITIS C ANTIBODY Routine 04/30/2019 10:54 AM ACCURACY EXPERT HEPATITIS A ANTIBODY, IGM Routine 04/30/2019 10:54 AM ACCURACY EXPERT HEPATITIS B CORE ANTIBODY, IGM Routine 04/30/2019 10:54 AM ACCURACY EXPERT HEPATITIS B SURFACE ANTIGEN Routine 04/30/2019 10:54 AM ACCURACY EXPERT RENAL FUNCTION PANEL Routine 04/30/2019 10:54 AM ACCURACY EXPERT PROTEIN / CREATININE RATIO, URINE Routine 04/11/2019 1:09 PM ACCURACY EXPERT CBC AND DIFFERENTIAL Routine 04/11/2019 1:09 PM ACCURACY EXPERT RENAL FUNCTION PANEL Routine 04/11/2019 1:09 PM ACCURACY EXPERT PROTEIN / CREATININE RATIO, URINE Routine 12/06/2018 [...] (ABNORMAL) Renal Function Panel (04/30/2019 10:54 AM ACCURACY EXPERT) Glucose 268(H) 65 - 99 mg/dL [facility] [...] 5.1 g/dL [facility] 04/30/2019 10:5 4 AM ACCURACY EXPERT 04/30/2019 10:55 AM ACCURACY EXPERT Narrative Resulting Agency Comment Performing Organization Information: Site ID: [place] Name: [facility] [employer] [facility] Address: [address] [place] [phone] Director: Jadiel Winslow D.O., MPH Mohsen Mann MD LAB BLOOD ORDERABLES Fi nal Result Performing Organization Address [facility] Phone Number [facility] * Hepatitis C antibody (04/30/2019 10:54 AM ACCURACY EXPERT) Hepatitis C Antibody NON-REACTI VE NON-REACT JUICE [facility] Signal/Cutoff 0.08 <1.00 [facility] Comment: HCV antibody was non-reactive. There is no laboratory evidence of HCV infection. In most cases, no further action is required. However, if recent HCV exposure is suspected, a test for HCV RNA (test code 35586) is suggested. For additional information please refer to http://education.Datalink/faq/WJR08m8 (This link is being provided for informational/ educational purposes only.) 04/30/2019 10:5 4 AM ACCURACY EXPERT 04/30/2019 10:55 AM ACCURACY EXPERT Narrative Resulting Agency Comment Performing Organization Information: Site ID: R[place] Name: [facility] Address: [address] [place] [address] Director: Jadiel Winslow D.O., MPH Mohsen Mann MD LAB BLOOD ORDERABLES Fi nal Result Performing Organization Address [facility] de Phone Number [facility] * Hepatitis B core antibody, IgM (04/30/2019 10:54 AM ACCURACY EXPERT) Hep B Core IgM NON-REACTI VE NON-REACTI VE [facility] 04/30/2019 10:5 4 AM ACCURACY EXPERT 04/30/2019 10:55 AM ACCURACY EXPERT Narrative Resulting Agency Comment Performing Organization Information: Site ID: RIK Name: [facility] Address: [address] [place] [address] Director: Jadiel Winslow D.O., MPH Mohsen Mann MD LAB BLOOD ORDERABLES Fi nal Result Performing Organization Address [facility] de Phone Number [facility] * Hepatitis B Surface Antigen (04/30/2019 10:54 AM ACCURACY EXPERT) Hep B Surface Antigen NON-REACTIVE NON-REACT JUICE [facility] Confirmation CANCELED [facility] Comment:Result canceled by t krysten ancillary. 04/30/2019 10:5 4 AM ACCURACY EXPERT 04/30/2019 10:55 AM ACCURACY EXPERT Narrative Resulting Agency Comment Performing Organization Information: Site ID: RIK Name: [facility] Address: [address] [place] [phone] Director: Jadiel Winslow D.O., MPH Mohsen Mann MD LAB BLOOD ORDERABLES Fi nal Result Performing Organization Address [facility] Phone Number [facility] * Hepatitis A antibody, IgM (04/30/2019 10:54 AM ACCURACY EXPERT) Pathologist [facility] Hep A IgM NON-REACTI VE NON-REACTI VE [facility] Comment: For additional information, please refer to http://education.Datalink/faq/HJK256 (This link is being provided for informational/ educational purposes only.) 04/30/2019 10:5 4 AM ACCURACY EXPERT 04/30/2019 10:55 AM ACCURACY EXPERT Narrative Resulting Agency Comment Performing Organization Information: Site ID: R[place] Name: [facility] Address: [address] [place] [phone] Director: Jadiel Winslow D.O., MPH Mohsen Mann MD LAB BLOOD ORDERABLES Fi nal Result Performing Organization Address [facility] de Phone Number [facility] * (ABNORMAL) Protein, Total, Random Urine w/Creatinine (Protein/Creat Ratio) (04/11/2019 1:09 PM ACCURACY EXPERT) Creatinine, Ur 58 20 - 275 mg/dL [facility] Urine Protein/Creati nine Ratio 3,397(H) 21 - 161 mg/g creat [facility] Protein/Creati nine Ratio, Urine 3.397(H) 0.021 - 0.161 mg/mg creat [facility] Protein Urine Random 197(H) 5 - 24 mg/dL [facility] 04/11/2019 1:09 PM ACCURACY EXPERT 04/11/2019 1:10 PM ACCURACY EXPERT Narrative Resulting Agency Comment Performing Organization Information: Site ID: [place] Name: [facility] Address: [address] [address] Director: Jadiel Winslow D.O., MPH us Yuliana Maradiaga SENIOR PRINCIPAL ARCHITECT LAB URINE ORDERABLES Final Resul t [facility] * (ABNORMAL) CBC and Differential (04/11/2019 1:09 PM ACCURACY EXPERT) WBC 9.3 3.8 - 10.8 Thousand/ uL [...] by t he ancillary. 04/11/2019 1:09 PM ACCURACY EXPERT 04/11/2019 1:10 PM ACCURACY EXPERT Narrative Resulting Agency Comment Performing Organization Information: Site ID: [place] Name: [facility] Address: [address] [place] [address] Director: Jadiel Winslow D.O., MPH Yuliana Maradiaga NP LAB BLOOD ORDERABLES Final Resul t [facility] * (ABNORMAL) Renal Function Panel (04/11/2019 1:09 PM ACCURACY EXPERT) Pathologist [facility] Glucose 228(H) 65 - 99 mg/dL [facility] [...] - 5.1 g/dL [facility] 04/11/2019 1:09 PM ACCURACY EXPERT 04/11/2019 1:10 PM ACCURACY EXPERT Narrative Resulting Agency Comment Performing Organization Information: Site ID: [place] Name: [facility] Address: [address] [place] [address] Director: Jadiel Winslow D.O., MPH us Yuliana Maradiaga SENIOR PRINCIPAL ARCHITECT LAB BLOOD ORDERABLES Final Resul t [facility] * (ABNORMAL) Vitamin D [...] D, (D2,D3), LC/MS/MS is recommended: order code 74570 (patients >2yrs). For more information on this test, go to: http://education.Acrolinx.Serveron/faq/XIS227 (This link is being provided for informational/educational purposes only.) 12/06/2018 8:34 AM CDT 12/06/2018 8:35 AM CDT Narrative Resulting Agency Comment Performing Organization Information: Site ID: [place] Name: [facility] Address: [address] [place] [address] Director: Jadiel Winslow D.O. MPH Tl Lawson NP LAB BLOOD ORDERABLES Final Result Performing Organization Address [facility] de Phone Number CYNDIE MOSES CYNDIE * (ABNORMAL) PTH, intact (12/06/2018 8:34 AM [...] Performing Organization Information: Site ID: R[place] Name: [facility] Address: [address] [place] [address] Director: Jadiel Winslow D.O., MPH Tl Lawson NP LAB BLOOD ORDERABLES Final Result Performing Organization Address [facility] Phone Number CYNDIE ST CYNDIE * (ABNORMAL) Protein / creatinine ratio, urine [...] Performing Organization Information: Site ID: [place] Name: [facility] Address: [address] [place] [address] Director: Jadiel Winslow D.O. MPH Tl Lawson SENIOR PRINCIPAL ARCHITECT LAB URINE ORDERABLES Final Result [facility] * (ABNORMAL) CBC (12/06/2018 [...] Agency Comment Performing Organization Information: Site ID: [place] Name: [employer] Address: [address] [address] Director: Jadiel Winslow D.O., MPH Tl Lawson SENIOR PRINCIPAL ARCHITECT LAB BLOOD ORDERABLES Final Result Performing Organization Address City/[facility]/ZIP Co de Phone Number [facility] * (ABNORMAL) Renal function panel [...] Agency Comment Performing Organization Information: Site ID: [place] Name: [facility] Address: [address] [place] [address] Director: Jadiel Winslow D.O., MPH Tl Lawson SENIOR PRINCIPAL ARCHITECT LAB BLOOD ORDERABLES Final Result Performing Organization Address City/State/[facility] de Phone Number [facility] documented in this encounter Visit Diagnoses Diagnosis Chronic kidney disease stage 4 (HCC) documented in this encounter Care Teams Load Tallier Relationship Specialty Start Date End Date Herber Hussein MD [address] [place] [address] PCP - General Family Medicine 07/14/18 documented as of this encounter
--- OUTSIDE RECORDS SUMMARY | 2025-02-06 13:04 | XMS_ITS | Encounter Summary ---
Author Organization [facility] [employer] Address [address] [facility] [address] [place] [address] Phone Care Team Providers Care Human Projectile Name Role Phone Herber Hussein MD Primary Care Provider [phone] Encounter Details Date Type Department Care Team (Late st Contact Info) Description 08/25/2018 Orders Only [facility] [address] [place] [address] Tl Lawson NP Chronic kidney [...] (HCC) documented in this encounter Care Teams Human Projectile Relationship Specialty Start Date End Date Herber Hussein MD [address] [place] [address] PCP - General Family Medicine 07/14/18 documented as of this encounter
--- OUTSIDE RECORDS SUMMARY | 2025-02-06 13:04 | XMS_ITS | Encounter Summary ---
Author Organization [facility] [employer] Address [address] [facility] [address] [place] [address] Phone Care Team Providers Care Leather Products Supervisor Name Role Phone Herber Hussein MD Primary Care Provider [phone] Encounter Details Date Type Department Care Team (Late st Contact Info) Description 09/29/2018 Orders Only [facility] [address] [place] [address] Tl Lawson NP Chronic kidney [...] (HCC) documented in this encounter Care Teams Leather Products Supervisor Relationship Specialty Start Date End Date Herber Hussein MD [address] [place] [address] PCP - General Family Medicine 07/14/18 documented as of this encounter
--- OUTSIDE RECORDS SUMMARY | 2025-02-06 13:04 | XMS_ITS | Encounter Summary ---
Author Organization [facility] [employer] Address [address] [place] [address] Phone Care Team Providers Care Hyperion Administrator Name Role Phone Herber Hussein MD Primary Care Provider [phone] Reason for Visit * Reason Comments Med Refill Encounter Details Date Type Department Care Team (Late st Contact Info) Description 05/30/2020 Refill [facility] [employer] [address] [place] [address] Mohsen Mann MD Social History Tobacco Use [...] on filedocumented in this encounter Care Teams Hyperion Administrator Relationship Specialty Start Date End Date Herber Hussein MD [address] [place] [address] PCP - General Family Medicine 07/14/18 documented as of this encounter
[2025-02-06 13:49] LABS: Glucose Urine UA 1+ (Normal); Nitrate Urine Negative (Negative); Specific Gravity, Urine 1.013 (1.005-1.030)
--- NOTE | 2025-02-06 13:59 | ECG_ITS ---
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 Measurements Intervals [place] Rate: 106 P: 72 NM: 136 QRS: 26 QRSD: 114 T: 237 QT: 313 QTc: 417 Interpretive Statements SINUS TACHYCARDIA POSSIBLE LEFT ATRIAL ENLARGEMENT [-0.1mV P-WAVE IN V1/V2] POSSIBLE LATERAL MYOCARDIAL INFARCTION , OF INDETERMINATE AGE [30 ms Q WAVE IN I/aVL/V5/V6] ST DEPRESSION, CONSIDER SUBENDOCARDIAL INJURY [0.1+ mV ST DEPRESSION] Compared to ECG 11/26/2024 17:06:01 ST (T wave) deviation now present Sinus rhythm no longer present T-wave abnormality no longer present Myocardial infarct finding still present Electronically Signed On 02-06-2025 23:53:58 BARTENDER HELPER by Hector Moe M.D. [email or web address]
[2025-02-06 14:33] LABS: PCO2 VBG 43.5 mmHg (41-51); PO2 VBG 40.7 mmHg (25-40); pH VBG 7.47 (7.32-7.42)
[2025-02-06 14:34] LABS: INR 1.00 (0.8-1.2); Prothrombin Time 13.90 SECONDS (12.1-14.9)
[2025-02-06 14:34] LABS: Base Excess VBG 7.1 mmol/L (-3.0-3.0); Blood Gas Operator Identificat AMH; Blood Gas Sample Site NOT SPECIFIED; Blood Gas Sample Type VENOUS; HCO3 VBG 31.5 mmol/L (24-28)
[2025-02-06 14:35] LABS: Venous Blood Gas Hematocrit 31.7 % (37-47)
[2025-02-06 14:48] LABS: Magnesium 2.1 mg/dL (1.7-2.3)
[2025-02-06 15:19] LABS: NT Pro B Type Natriuretic Pept 42615 pg/mL (0-125)
[2025-02-06] MEDS: APIXABAN 2.5 MG TABLET PO (18:33)
[2025-02-06] MEDS: morphine 4 mg/mL SDV 1 mL IVP (23:37)
[2025-02-07] VITALS (16 sets, daily range): BP systolic 96–169; BP diastolic 57–72; PULSE 91–112; RESP 16–30; TEMP 36.6–37.4; O2SAT 72–94
[2025-02-07] MEDS: APIXABAN 2.5 MG TABLET PO ×2 (04:56→16:58)
[2025-02-07] MEDS: multivitamin therapeutic Tablet 1 TAB PO (04:57)
[2025-02-07 05:00] LABS: Base Excess VBG 6.3 mmol/L (-3.0-3.0); Blood Gas Allen Test Pos; Blood Gas LPM 6.0 %; Blood Gas Operator Identificat gerca; Blood Gas Sample Type Venous; HCO3 VBG 31.5 mmol/L (24-28); PCO2 VBG 47.6 mmHg (41-51); PO2 VBG 26.6 mmHg (25-40); Venous Blood Gas Hematocrit 30.9 % (37-47); pH VBG 7.43 (7.32-7.42)
[2025-02-07 05:42] LABS: Anion Gap 18.9 (5-19); Blood Urea Nitrogen 27 mg/dL (6-20); Calcium 9.1 mg/dL (8.5-10.5); Carbon Dioxide 28 mmol/L (22-29); Chloride 94 mmol/L (98-107); Glucose 225 mg/dL (65-115); Osmolality Calculated 296 mOsm/kg (285-295); Potassium 3.9 mmol/L (3.5-5.1); Sodium 137 mmol/L (136-145)
[2025-02-07] MEDS: morphine 4 mg/mL SDV 1 mL IVP ×2 (07:44→21:07)
[2025-02-07] MEDS: FUROsemide 10 mg/mL SDV 10mL 60 MG IVP (11:46)
--- NOTE | 2025-02-07 14:19 | PM.CONSULT ---
Providers/Reason For Consult Consulting Physician/Specialty*: Asif Morris MD/tele-nephrology Reason for Consult*: End-stage renal disease, volume overload Requesting Physician: Vikki Sandy MD Attending Physician: Vikki Sandy MD Primary Care Provider: Herber Hussein MD History of Present Illness History of Present Illness Bharati Anthony is a 49 year old female history of ESRD on dialysis Tuesday and Tuesday, DVT, ulcers anemia COVID former drug use migraines history of anal carcinoma in the past. Patient was admitted with shortness of breath concerns of pneumonia and renal was called today with question whether she has volume overload. Review of Systems Narrative: Weak short of breath lethargic denies fevers or chills. No headaches positive nausea positive rectal pain positive back pain. Has dyspnea on exertion at baseline. Medications/Allergies Home Medications ?Medication ?Instructions ?Recorded ?Confirmed ?Last Taken ?Type pantoprazole 40 mg tablet,delayed 40 mg PO BID 06/19/19 02/06/25 02/06/25 History release diphenhydramine HCl 25 mg capsule 25 mg PO TID PRN Itching 04/01/20 02/06/25 07/30/24 History (Benadryl) ropinirole 0.25 mg tablet 0.25 mg PO BEDTIME 01/21/23 02/06/25 02/05/25 History vit B,C-folic ac 800 mcg-zinc 12.5 1 tab PO DAILY 01/21/23 02/06/25 02/06/25 History mg-selen-D3 2,000 unit-vit E tablet (RenaPlex-D) amlodipine 10 mg tablet 10 mg PO DAILY 03/22/24 02/06/25 02/06/25 History apixaban 2.5 mg tablet (Eliquis) 2.5 mg PO BID 11/26/24 02/06/25 02/06/25 History scopolamine base 1 mg over 3 days 1 patch topical Q72H PRN Nausea 11/26/24 02/06/25 Unknown History transdermal patch citalopram 20 mg tablet 10 mg (1/2 x 20 mg) PO DAILY #30 11/27/24 02/06/25 02/06/25 Rx tabs melatonin 10 mg capsule 5 mg (1/2 x 10 mg) PO BEDTIME #30 11/27/24 02/06/25 02/05/25 Rx caps acetaminophen 500 mg tablet 500 mg PO QID PRN Pain 02/06/25 02/06/25 Unknown History albuterol sulfate 90 mcg/actuation 2 inh inhalation Q6H PRN shortness 02/06/25 02/06/25 Unknown History aerosol inhaler of breath bumetanide 2 mg tablet See Rx Instructions .Route .COMPLEX 02/06/25 02/06/25 02/06/25 History carvedilol 25 mg tablet 25 mg PO BID 02/06/25 02/06/25 02/06/25 History hydralazine 25 mg tablet 25 mg PO TID 02/06/25 02/06/25 Unknown History metoclopramide HCl 5 mg tablet 5 mg PO TID 02/06/25 02/06/25 Unknown History (Reglan) promethazine 25 mg tablet 25 mg PO Q4H PRN Nausea 02/06/25 02/06/25 Unknown History sevelamer carbonate 800 mg tablet 1,600 mg PO TID 02/06/25 02/06/25 02/06/25 History sodium bicarbonate 650 mg tablet 650 mg PO TID PRN Indigestion 02/06/25 02/06/25 02/06/25 History Allergies Allergy/AdvReac Type Severity Reaction Status Date / Time sulfamethoxazole (From Allergy Severe ALGY-Rash Verified 09/18/24 10:58 Sulfamethoxazole-Trimethoprim) trimethoprim (From Allergy Severe ALGY-Rash Verified 09/18/24 10:58 Sulfamethoxazole-Trimethoprim) adhesive tape Allergy Unknown blisters Verified 09/18/24 10:58 Cephalosporins Allergy Unknown unknown Verified 09/18/24 10:58 doxycycline Allergy ADR-Vomitin Verified 09/18/24 10:58 g latex Allergy blisters Verified 09/18/24 10:58 Sulfa (Sulfonamide Allergy Unknown Verified 10/16/24 07:58 Antibiotics) Current Medications Generic Name Dose Route Start Last Admin Trade Name Freq PRN Reason Stop Dose Admin Acetaminophen 650 mg 02/06/25 13:57 02/06/25 18:32 Acetaminophen 325 Mg Tablet PO 650 mg Q6H PRN Administration Mild/Mod Pain Or Temp >/= 101 Albuterol Sulfate 2.5 mg 02/06/25 17:25 02/07/25 09:30 Albuterol 2.5 Mg/3 Ml Neb INHALATION 2.5 mg Q6H.RESP PRN Administration SHORTNESS OF BREATH Amlodipine Besylate 10 mg 02/07/25 05:00 02/07/25 04:57 Amlodipine 10 Mg Tablet PO 10 mg DAILY BRETT Administration Apixaban 2.5 mg 02/06/25 17:25 02/07/25 04:56 Apixaban 2.5 Mg Tablet PO 2.5 mg BID BRETT Administration Ascorbic Acid 1,000 mg 02/06/25 17:00 02/07/25 04:56 Ascorbic Acid 500 Mg Tablet PO 1,000 mg BID BRETT Administration Carvedilol 25 mg 02/06/25 17:25 02/07/25 04:56 Carvedilol 25 Mg Tablet PO 25 mg BID BRETT Administration Citalopram Hydrobromide 10 mg 02/07/25 05:00 02/07/25 04:56 Citalopram 20 Mg Tablet PO 10 mg DAILY BRETT Administration Docusate Sodium 100 mg 02/06/25 17:00 02/07/25 04:57 Docusate Sodium 100 Mg Capsule PO 100 mg BID BRETT Administration Hydralazine HCl 25 mg 02/06/25 21:00 02/07/25 13:51 Hydralazine 25 Mg Tablet PO 25 mg TID BRETT Administration Meropenem 500 mg 02/06/25 23:00 02/07/25 12:00 Meropenem 500 Mg Sdv IVP 500 mg Q12H BRETT Administration Protocol Morphine Sulfate 4 mg 02/06/25 19:20 02/07/25 07:44 Morphine 4 Mg/Ml Sdv 1 Ml IVP 4 mg Q4H PRN Administration SEVERE PAIN Multivitamins Therapeutic 1 tab 02/07/25 05:00 02/07/25 04:57 Multivitamin Therapeutic Tablet PO 1 tab DAILY BRETT Administration Pantoprazole Sodium 40 mg 02/06/25 17:25 02/07/25 04:[address] 40 Mg Tablet PO 40 mg BID BRETT Administration Ropinirole HCl 0.25 mg 02/06/25 21:00 02/06/25 21:09 Ropinirole 0.25 Mg Tablet PO 0.25 mg BEDTIME BRETT Administration Sevelamer Carbonate 1,600 mg 02/06/25 21:00 02/07/25 13:50 Sevelamer 800 Mg Tablet PO 1,600 mg TID BRETT Administration Vitamin D 1,000 unit 02/07/25 05:00 02/07/25 04:56 Cholecalciferol (Vitamin D3) 1,000 Unit Tablet PO 1,000 unit DAILY BRETT Administration Zinc Gluconate 50 mg 02/07/25 05:00 02/07/25 05:13 Zinc Gluconate 50 Mg Tablet PO 50 mg DAILY BRETT Administration PFSH Acute PFSH: Medical History (Updated 02/06/25 @ 14:09 by TREMAINE Hillman, INSTRUCTOR [employer]OL[employer]AXI) Tachycardia Diabetes Deep vein thrombosis (DVT) during Chronic anticoagulation Squamous cell carcinoma of anal canal Diabetes mellitus End-stage renal disease Surgical History Status post surgery (05/19/20) Removal of peritoneal dialysis catheter Port-A-Cath in place S/P hemodialysis catheter insertion (01/09/20) Removed 11/18/2020 Peritoneal dialysis status H/O colonoscopy H/O hand surgery History of hip surgery History of hysterectomy Family History Other Cancer Diabetes Denies family history of Anesthesia complication Bleeding disorder Social History Smoking and tobacco/nicotine status: current every day tobacco/nicotine user cigarettes Packs smoked per day: 0.25 Alcohol intake: never Substance/Drug Use: former Date of last use: Greater than 8 years ago as of 11/26/2024 Former substance use details: Marijuana and then switched to methamphetamines but stopped greater than 8 Additional social history: CODE STATUS discussed and patient wants DNR on 11/26/2024 with Brian Philippe MD Household members: family Marital status: Single Current occupational status: disabled Vitals/I&O/Wt Last Vital Signs Temp 99.3 F 02/07/25 11:29 Pulse 103 H 02/07/25 11:29 Resp 30 H 02/07/25 12:08 BP 115/57 02/07/25 11:29 Pulse Ox 92 02/07/25 12:08 O2 Del Method Oxymask 02/07/25 12:08 O2 Flow Rate 4 02/07/25 12:08 02/06/25 02/07/25 02/07/25 22:59 06:59 14:59 Intake Total 500 / 800 720 / 720 Output Total 700 / 700 350 / 1050 Balance -200 / 100 -350 / -250 720 / 720 Weight last 48 hrs Weight 79.379 kg Weight 79.832 kg Physical Exam Narrative: Uncomfortable in bed using facemask oxygen. Vital signs noted. HEENT normocephalic atraumatic. Neck supple Lungs crackles and rhonchi bilaterally. Heart positive S1-S2 regular Abdomen is soft positive bowel sounds. Lower extremity edema bilaterally, right foot great toe amputation has lower extremity permacath. Neuro awake alert and oriented x 3. Urinary Catheter Management: Ryder: Cath Placed During This Visit: yes Urinary Catheter Date of Insertion: 02/07/25 Urinary Catheter Time of Insertion: 11:45 Data 02/06/25 10:27 02/07/25 04:37 A&P Assessment and plan 1. End stage renal disease on dialysis: 49-year-old female history of ESRD on dialysis Tuesday and Tuesday, DVT, ulcers anemia COVID former drug use migraines history of anal carcinoma in the past. 1. Question pneumonia antibiotics as per hospitalist blood culture grew out Staph epidermidis likely contaminant will monitor especially with permacath. 2. ESRD question if patient is volume overloaded very short of breath will do extra ultrafiltration today. 3. Hemoglobin of 10 is likely hemoconcentrated from dialysis yesterday will monitor 4. Normal bicarbonate potassium 3.9 5. BNP 48,263 will monitor with ultrafiltration. Check cardiac echo sure no effusion Medications reviewed. given bp is low- will hold amlodipine and hydralazine. can stop sodium bicarbonate as he is on dialysis Patient was seen and examined as a telehealth visit. Audiovisual equipment was used patient was examined with the aid of a nurse. The patient consented to telehealth and to hemodialysis. Plan: See above decrease medications attempt to remove fluid on dialysis. Antibiotics as per hospitalist PDMP PDMP Reviewed: Not Reviewed Consult Attestations Medical Necessity Statement: Volume overload, ESRD Time Spent in Patient Care: Greater than 35 minutes (>than 50% of time spent in counselling and/or direct pt care on unit). Coding Level of Care Code Acute Code for Chg Fwd Diagnoses End stage renal disease on dialysis N18.6; Z99.2
[2025-02-07 15:27] LABS: Hepatitis B Surface Antigen Non-Reactive (Nonreactive)
--- NOTE | 2025-02-07 20:19 | P.PN_ITS ---
Subjective 2 Subjective: the patient was seen in the morning, and having SOB and on oxygen having mild wet cough, feeling relatively better however still requiring oxygen which she was not on before at home Possible signs of fluid overload secondary to end-stage renal disease and require optimization of her hemodialysis Nephrology consulted and to follow-up further plan of care Vitals/I&O/Wt Last Vital Signs Temp 99.3 F 02/07/25 19:50 Pulse 100 02/07/25 19:50 Resp 18 02/07/25 19:50 BP 169/63 02/07/25 19:50 Pulse Ox 92 02/07/25 19:50 O2 Del Method Nasal Cannula 02/07/25 19:50 O2 Flow Rate 5 02/07/25 19:50 02/07/25 02/07/25 02/07/25 06:59 14:59 22:59 Intake Total 1200 / 1200 680 / 1880 Output Total 350 / 1050 250 / 250 2701 / 2951 Balance -350 / -250 950 / 950 -2021 / -1071 Weight last 48 hrs Weight 81.8 kg Weight 79.379 kg Weight 79.832 kg Physical Exam 2 Narrative: General: Alert and oriented, lying comfortably able to complete in full sentences, on 3 to 4 L/min nasal cannula oxygen supplementation, with mild wet cough HEENT: Normocephalic, atraumatic, grossly unremarkable exam Cardio: normal rate rhythm, normal S1-S2 without any murmurs, rubs, or gallops. Respiratory: Bilateral equal air entry with bilateral basal inspiratory crepitations that does not change with cough, no wheezing or stridor. GI: Abdomen soft, nontender, nondistended, normoactive bowel sounds present all 4 quadrants, Neuro: intact cranial nerves motor and sensory and cerebellar/coordination function without any focal neurological deficit Behavior: Appropriate and cooperative Extremities: Adequate palpable pulses, bilateral mild pedal edema Urinary Catheter Management: Ryder: Cath Placed During This Visit: yes Reason for Continuing Indwelling Catheter: Chronic Indwelling Urinary Catheter on Admission Urinary Catheter Date of Insertion: 02/07/25 Urinary Catheter Time of Insertion: 11:45 Data 02/06/25 10:27 02/07/25 04:37 A&P Assessment and plan 1. Acute hypoxemic respiratory failure: - High likelihood of fluid overload on end-stage renal disease requiring further dialysis since the inflammatory markers are not suggestive of pneumonia. - Chest x-ray showed bilateral haziness - Considering and giving the benefit of doubt to keep the patient on antibiotics and meanwhile to follow the infectious workup - Consulted nephrology for further optimization of hemodialysis and if needed for ultrafiltration session - Oxygen supplementation and to wean off accordingly - 60 mg IV Lasix stat - Maintain normal hemodynamics 2. Pneumonia: - Possible pneumonia with bilateral hazy infiltrates however could be related to her fluid overload secondary to end-stage renal disease. Since the Pro-Craig is negative - Initial admitting physician mentioned for meropenem and vancomycin however patient is currently on meropenem for possible pneumonia. I could not see if the patient was given vancomycin. - Considering her parameters there is less likely that the patient is having severe pneumonia however the signs and symptoms are more suggestive of fluid overload secondary to end-stage renal disease that is requiring dialysis - De-escalate meropenem to levofloxacin 750 mg initial dose and then to continue 500 mg every 48 hours. - Resend blood cultures since the blood cultures samples were canceled and sputum cultures to follow if are negative then to discontinue antibiotics - MRSA swab - Respiratory viral panel - Oxygen supplementation to maintain oxygen sats above 92% - PT OT evaluation - Maintain MAP over 65 - Consulted nephrology for possible fluid overload and adjustment of hemodialysis 3. End stage renal disease on dialysis: - Patient having high proBNP, consulted nephrology - Lasix 60 mg IV stat and continue Bumex 2 mg postdialysis as per home medication - Possible ultrafiltration for removal after fluids - Oxygen supplementation - Follow nephrology plan and recommendation - To continue dialysis as scheduled and later to adjust her hemodialysis sessions according to her weight and fluid status. 4. Diabetes mellitus: - Insulin sliding scale - Patient having end-stage renal disease therefore her HbA1c is controlled and does not need insulin or antidiabetic medications at the time of discharge - For further reconciliation and management of her for diabetes to give referral at the time of discharge to the PCP/personal security specialist 5. Nicotine dependence: Current everyday cigarette use, ? pack per day Cessation education 6. DVT (deep venous thrombosis): On Eliquis To continue home dose anticoagulation VTE addressed and as per the system/[place] requirement need to place VTE orders therefore SCD has been placed however it is not required since the patient is already on Eliquis 7. Hypertension: Patient on antihypertensives with carvedilol 25 mg twice daily, amlodipine 10 mg daily, hydralazine 25 3 times daily Meanwhile hold antihypertensive at the moment since the patient will receive hemodialysis To evaluate the 24 hours readings and later to see if patient needs resumption of her home medication and to introduce gradually PDMP PDMP Reviewed: Not Reviewed Attestations 2 Medical Necessity Statement*: Patient will stay more than 2 midnights for further management of her acute hypoxemic respiratory failure secondary to possible fluid overload underlying end-stage renal disease, less likely pneumonia and to optimize her rest of the comorbidities Coding Level of Care Code 75866 Diagnoses Acute hypoxemic respiratory failure J96.01 Pneumonia J18.9 End stage renal disease on dialysis N18.6; Z99.2 Diabetes mellitus E11.9 Nicotine dependence F17.200 DVT (deep venous thrombosis) I82.409 Hypertension I10
[2025-02-07] MEDS: levofloxacin-dextrose 5 % 750 MG/150 ML PREMIX 100 MG IV (21:07)
--- NOTE | 2025-02-07 23:44 | USCV_ITS ---
Bharati Anthony Age: 49 Gender: F : 1975 Exam Date: 02/07/2025 23:50 Ordering Phys: Asif Morris MD Technologist: EFRAIN [place] [facility] [place]B, esrd, evaluate EF and for an effusion Admit for AMS, history of drug abuse, BP: 169 / 63 HR: 78 Rhythm: Sinus Technical Quality: Adequate MEASUREMENTS (Male / Female) Normal Values 2D ECHO LV Diastolic Diameter PLAX 4.9 cm 4.2 - 5.9 / 3.9 - 5.3 cm IVS Diastolic Thickness 1.4 cm 0.6 - 1.0 / 0.6 - 0.9 cm IVS Systolic Thickness 1.6 cm LVPW Diastolic Thickness 1.2 cm 0.6 - 1.0 / 0.6 - 0.9 cm LVPW Systolic Thickness 1.8 cm LVOT Diameter 2.1 cm LV Ejection Fraction 2D Teich 50.4 % LV Ejection Fraction MOD 4C 44.1 % LV Ejection Fraction MOD 2C 51.5 % LV Ejection Fraction 2C AL 49.8 % LA Diameter 4.7 cm Aorta at Sinotubular Diameter 2.6 cm IVC Diameter 1.5 cm M-MODE LA Ao Ratio MM 1.9 AV Cusp Separation MM 1.8 cm DOPPLER AV Peak Velocity 133.0 cm/s LVOT Peak Velocity 67.0 cm/s AV Area Cont Eq vti 2.1 cm squared AV Area Cont Eq pk 1.7 cm squared MV Peak Velocity 165.0 cm/s MV Area PHT 4.5 cm squared Mitral E to A Ratio 2.2 TV Peak Velocity 235.0 cm/s TR Peak Velocity 243.0 cm/s TR Peak Gradient 23.6 mmHg TV Peak E Velocity 42.0 cm/s PV Peak Velocity 99.0 cm/s FINDINGS Left Ventricle Left ventricular normal size. LV systolic function is mildly reduced with EF of 45-50%. Mild global hypokinesis. Right Ventricle Normal in size and function Right Atrium Normal in size Left Atrium Normal in size IA Septum Grossly normal Mitral Valve Mild mitral annular calcification. Mild mitral regurgitation. Aortic Valve Structurally normal aortic valve. No significant stenosis. Tricuspid Valve Mild tricuspid regurgitation. Pulmonary artery systolic pressure is normal Pulmonic Valve Not well visualized Pericardium Pleural effusion is seen Aorta Normal in size IVC Appears to be normal CONCLUSIONS LV systolic function is mildly reduced with EF of 45-50% Mild mitral regurgitation. Mild tricuspid regurgitation. Pleural effusion is seen Jhon Telles MD (Electronically Signed) Final Date: 08 February 2025 15:43 S
[2025-02-08] VITALS (14 sets, daily range): BP systolic 95–121; BP diastolic 51–72; PULSE 68–89; RESP 12–20; TEMP 36.3–37.2; O2SAT 78–96
[2025-02-08 01:11] LABS: MRSA PCR OZH (swab) MRSA Detected (Not Detecte)
[2025-02-08 01:38] LABS: Coronavirus 229E,HKU1,NL63,OC4 Not Detected (NOT DETECT); Parainfluenza Virus Type 1 Not Detected (NOT DETECT); Parainfluenza Virus Type 2 Not Detected (NOT DETECT); Parainfluenza Virus Type 3 Not Detected (NOT DETECT); Parainfluenza Virus Type 4 Not Detected (NOT DETECT); SARS-COV-2 Not Detected (NOT DETECT)
[2025-02-08] MEDS: APIXABAN 2.5 MG TABLET PO ×2 (04:10→16:25)
[2025-02-08] MEDS: multivitamin therapeutic Tablet 1 TAB PO (04:11)
[2025-02-08 05:06] LABS: Hematocrit 28.4 % (36-47); Hemoglobin 8.70 g/dL (11.27-16.99); Mean Corpuscular HGB Conc 30.6 g/dL (30-55); Mean Corpuscular Hemoglobin 34.9 pg (27-33); Mean Corpuscular Volume 114.1 fl (85-98); Nucleated Red Blood Cells % 0 %; Platelet Count 131 10^3/cmm (157-399); Red Blood Count 2.49 10^6/uL (3.85-5.65); White Blood Count 3.69 10^3/uL (3.29-11.43)
[2025-02-08 05:28] LABS: Alanine Aminotransferase 10 U/L (0-33); Albumin Level 3.6 g/dL (3.5-5.2); Alkaline Phosphatase 71 U/L (35-105); Anion Gap 17.3 (5-19); Aspartate Amino Transferase 14 U/L (0-32); Blood Urea Nitrogen 42 mg/dL (6-20); Calcium 9.0 mg/dL (8.5-10.5); Carbon Dioxide 28 mmol/L (22-29); Chloride 92 mmol/L (98-107); Globulin 2.4 g/dL (1.3-4.6); Glucose 108 mg/dL (65-115); Osmolality Calculated 287 mOsm/kg (285-295); Potassium 4.3 mmol/L (3.5-5.1); Sodium 133 mmol/L (136-145); Total Protein 6.0 g/dL (6.6-8.7)
--- NOTE | 2025-02-08 07:30 | P.PN_ITS ---
Subjective 2 Subjective: Patient is a pleasant 49-year-old female seen and examined at bedside on hospital rounds this morning. Patient lying in bed stating she has continued shortness of breath and weakness, denies new or worsening symptoms. Patient will have dialysis again this morning will work on removing fluid, hopefully this will help improve patient's dyspnea. Patient is currently on 5 L/min nasal cannula, will do home O2 evaluation after dialysis today. Otherwise patient's vital signs are stable. WBC 3.69, hemoglobin 8.70, platelet count 131, sodium 133, elevated creatinine 5.6 however patient will have dialysis later this morning. Will work with case management on discharge planning and adhere to nephrology recommendations. Pending ECHO results. All questions and concerns addressed at the bedside today. Vitals/I&O/Wt Last Vital Signs Temp 98.0 F 02/08/25 04:00 Pulse 68 02/08/25 04:10 Resp 17 02/08/25 04:00 BP 109/72 02/08/25 04:10 Pulse Ox 94 02/08/25 04:00 O2 Del Method Nasal Cannula 02/08/25 04:00 O2 Flow Rate 5 02/08/25 04:00 02/07/25 02/08/25 02/08/25 22:59 06:59 14:59 Intake Total 830 / 2030 250 / 2280 Output Total 2751 / 3001 Balance -1921 / -971 250 / -721 Weight last 48 hrs Weight 80.739 kg Weight 81.8 kg Weight 79.379 kg Weight 79.832 kg Physical Exam 2 Narrative: General: Alert and oriented, lying comfortably able to complete in full sentences, on 5 L/min nasal cannula oxygen supplementation, with mild wet cough HEENT: Normocephalic, atraumatic, grossly unremarkable exam Cardio: normal rate rhythm, normal S1-S2 without any murmurs, rubs, or gallops. Respiratory: Bilateral equal air entry with bilateral basal inspiratory crepitations that does not change with cough, no wheezing or stridor. GI: Abdomen soft, nontender, nondistended, normoactive bowel sounds present all 4 quadrants, Neuro: intact cranial nerves motor and sensory and cerebellar/coordination function without any focal neurological deficit Behavior: Appropriate and cooperative Extremities: Adequate palpable pulses, bilateral mild pedal edema Urinary Catheter Management: Ryder: Cath Placed During This Visit: yes Reason for Continuing Indwelling Catheter: Chronic Indwelling Urinary Catheter on Admission Urinary Catheter Date of Insertion: 02/07/25 Urinary Catheter Time of Insertion: 11:45 Data 02/08/25 04:50 02/08/25 04:50 Micro: Microbiology 02/07/25 16:39 Blood Culture - Preliminary Blood SPECIMEN COLLECTED A&P Assessment and plan 1. Acute hypoxemic respiratory failure: - High likelihood of fluid overload on end-stage renal disease requiring further dialysis since the inflammatory markers are not suggestive of pneumonia. - Chest x-ray showed bilateral haziness - Considering and giving the benefit of doubt to keep the patient on antibiotics and meanwhile to follow the infectious workup - Consulted nephrology for further optimization of hemodialysis, extra session yesterday and planned session today - Oxygen supplementation and to wean off accordingly, Oxygen walk test to evaluate for home oxygen - Maintain normal hemodynamics - ECHO pending 2. Pneumonia: - Possible pneumonia with bilateral hazy infiltrates however could be related to her fluid overload secondary to end-stage renal disease. Since the Pro-Craig is negative - Initial admitting physician mentioned for meropenem and vancomycin however patient is currently on meropenem for possible pneumonia. I could not see if the patient was given vancomycin. - Considering her parameters there is less likely that the patient is having severe pneumonia however the signs and symptoms are more suggestive of fluid overload secondary to end-stage renal disease that is requiring dialysis - De-escalate meropenem to levofloxacin 750 mg initial dose and then to continue 500 mg every 48 hours. - Resend blood cultures since the blood cultures samples were canceled and sputum cultures to follow if are negative then to discontinue antibiotics - pending - MRSA swab positive, initiated mupirocin BID - Respiratory viral panel - Oxygen supplementation to maintain oxygen sats above 92% - Maintain MAP over 65 - Consulted nephrology for possible fluid overload and adjustment of hemodialysis 3. End stage renal disease on dialysis: - Patient having high proBNP, consulted nephrology - Lasix 60 mg IV given yesterday and continue Bumex 2 mg postdialysis as per home medication - Possible ultrafiltration for removal after fluids - Oxygen supplementation - Follow nephrology plan and recommendation - To continue dialysis as scheduled and later to adjust her hemodialysis sessions according to her weight and fluid status. 4. Diabetes mellitus: - Insulin sliding scale - Patient having end-stage renal disease therefore her HbA1c is controlled and does not need insulin or antidiabetic medications at the time of discharge - For further reconciliation and management of her for diabetes to give referral at the time of discharge to the PCP/gypsum roofer 5. Nicotine dependence: Current everyday cigarette use, ? pack per day Cessation education 6. DVT (deep venous thrombosis): On Eliquis To continue home dose anticoagulation VTE addressed and as per the system/[place] requirement need to place VTE orders therefore SCD has been placed however it is not required since the patient is already on Eliquis 7. Hypertension: Patient on antihypertensives with carvedilol 25 mg twice daily, amlodipine 10 mg daily, hydralazine 25 3 times daily Meanwhile hold antihypertensive with hypotension To evaluate the 24 hours readings and later to see if patient needs resumption of her home medication and to introduce gradually PDMP PDMP Reviewed: Not Reviewed Attestations 2 Medical Necessity Statement*: Patient will stay more than 2 midnights for further management of her acute hypoxemic respiratory failure secondary to possible fluid overload underlying end-stage renal disease with dialysis, less likely pneumonia and to optimize her rest of the comorbidities. Coding Level of Care Code 63312 Diagnoses Acute hypoxemic respiratory failure J96.01 Pneumonia J18.9 End stage renal disease on dialysis N18.6; Z99.2 Diabetes mellitus E11.9 Nicotine dependence F17.200 DVT (deep venous thrombosis) I82.409 Hypertension I10
--- NOTE | 2025-02-08 08:41 | P.PN_ITS ---
Subjective 2 Subjective: no new c/o Medications: Reviewed: Yes Vitals/I&O/Wt Last Vital Signs Temp 98.0 F 02/08/25 04:00 Pulse 68 02/08/25 04:10 Resp 17 02/08/25 04:00 BP 109/72 02/08/25 04:10 Pulse Ox 94 02/08/25 04:00 O2 Del Method Nasal Cannula 02/08/25 04:00 O2 Flow Rate 5 02/08/25 04:00 02/07/25 02/08/25 02/08/25 22:59 06:59 14:59 Intake Total 830 / 2029 250 / 2280 Output Total 2751 / 3001 Balance -1921 / -971 250 / -721 Weight last 48 hrs Weight 80.739 kg Weight 81.8 kg Weight 79.379 kg Weight 79.832 kg Physical Exam 2 Narrative: . Vital signs noted. HEENT normocephalic atraumatic. Neck supple Lungs crackles and rhonchi bilaterally. Heart, S1-S2 regular Abdomen is soft positive bowel sounds. Lower extremity edema bilaterally, right foot great toe amputation has lower extremity permacath. Neuro awake alert and oriented x 3. Urinary Catheter Management: Ryder: Cath Placed During This Visit: yes Reason for Continuing Indwelling Catheter: Chronic Indwelling Urinary Catheter on Admission Urinary Catheter Date of Insertion: 02/07/25 Urinary Catheter Time of Insertion: 11:45 Data 02/08/25 04:50 02/08/25 04:50 Micro: Microbiology 02/07/25 16:39 Blood Culture - Preliminary Blood SPECIMEN COLLECTED A&P Assessment and plan 1. End stage renal disease on dialysis: 49-year-old female history of ESRD on dialysis Tuesday and Tuesday, DVT, ulcers anemia COVID former drug use migraines history of anal carcinoma in the past. 1. ? pneumonia antibiotics , on abx 2. ESRD, UF yesterday and HD today 3. Hemoglobin 8.7 , will order procrit 4. h/o HTN --> meds on hold Patient was seen and examined as a telehealth visit. Audiovisual equipment was used patient was examined with the aid of a nurse. The patient consented to telehealth and to hemodialysis. Plan: See above decrease medications attempt to remove fluid on dialysis. Antibiotics as per hospitalist PDMP PDMP Reviewed: Not Reviewed Attestations 2 Medical Necessity Statement*: per medicine Coding Level of Care Code Acute Code for Chg Fwd Diagnoses End stage renal disease on dialysis N18.6; Z99.2
[2025-02-08] MEDS: morphine 4 mg/mL SDV 1 mL IVP ×2 (08:43→21:07)
--- NOTE | 2025-02-08 09:28 | PC.SOCIAL ---
IMM Update pg 2 of IMM Updated and reviewed w/ patient. Copy provided and copy dated, initialed and placed in chart.
[2025-02-08] MEDS: diphenhydrAMINE 50 mg/mL SDV 1mL IVP (12:15)
[2025-02-08] MEDS: mupirocin oint 22 gm 1 APPLIC NASAL (18:01)
[2025-02-09] VITALS (10 sets, daily range): BP systolic 103–116; BP diastolic 62–68; PULSE 80–84; RESP 16–19; TEMP 36.4–37; O2SAT 93–96
[2025-02-09] MEDS: multivitamin therapeutic Tablet 1 TAB PO (04:26)
[2025-02-09] MEDS: APIXABAN 2.5 MG TABLET PO ×2 (04:27→19:01)
[2025-02-09] MEDS: mupirocin oint 22 gm 1 APPLIC NASAL ×2 (04:28→19:02)
[2025-02-09 04:50] LABS: Hematocrit 29.6 % (36-47); Hemoglobin 9.10 g/dL (11.27-16.99); Mean Corpuscular HGB Conc 30.7 g/dL (30-55); Mean Corpuscular Hemoglobin 34.2 pg (27-33); Mean Corpuscular Volume 111.3 fl (85-98); Nucleated Red Blood Cells % 0 %; Platelet Count 145 10^3/cmm (157-399); Red Blood Count 2.66 10^6/uL (3.85-5.65); White Blood Count 4.13 10^3/uL (3.29-11.43)
[2025-02-09 05:16] LABS: Alanine Aminotransferase 9 U/L (0-33); Albumin Level 3.6 g/dL (3.5-5.2); Alkaline Phosphatase 70 U/L (35-105); Anion Gap 15.1 (5-19); Aspartate Amino Transferase 15 U/L (0-32); Blood Urea Nitrogen 35 mg/dL (6-20); Calcium 8.9 mg/dL (8.5-10.5); Carbon Dioxide 28 mmol/L (22-29); Chloride 98 mmol/L (98-107); Globulin 2.6 g/dL (1.3-4.6); Glucose 138 mg/dL (65-115); Osmolality Calculated 294 mOsm/kg (285-295); Potassium 4.1 mmol/L (3.5-5.1); Sodium 137 mmol/L (136-145); Total Protein 6.2 g/dL (6.6-8.7)
--- NOTE | 2025-02-09 05:44 | P.PN_ITS ---
Subjective 2 Subjective: s/p HD yesterday Medications: Reviewed: Yes Vitals/I&O/Wt Last Vital Signs Temp 97.9 F 02/09/25 04:00 Pulse 82 02/09/25 04:00 Resp 17 02/09/25 04:00 BP 103/63 02/09/25 04:00 Pulse Ox 96 02/09/25 04:00 O2 Del Method Room Air 02/09/25 04:00 O2 Flow Rate 5 02/08/25 23:53 02/08/25 02/08/25 02/09/25 14:59 22:59 06:59 Intake Total 120 / 120 740 / 860 Output Total 3300 / 3300 100 / 3400 Balance 120 / 120 -2560 / -2440 -100 / -2540 Weight last 48 hrs Weight 80.739 kg Weight 78.7 kg Weight 80.739 kg Weight 81.8 kg Physical Exam 2 Narrative: . Vital signs noted. HEENT normocephalic atraumatic. Neck supple Lungs crackles and rhonchi bilaterally. Heart, S1-S2 regular Abdomen is soft positive bowel sounds. Lower extremity edema bilaterally, right foot great toe amputation has lower extremity permacath. Neuro awake alert and oriented x 3. Urinary Catheter Management: Ryder: Cath Placed During This Visit: yes Reason for Continuing Indwelling Catheter: Acute Urinary Retention or Obstruction Urinary Catheter Date of Insertion: 02/07/25 Urinary Catheter Time of Insertion: 11:45 Data 02/09/25 04:20 02/09/25 04:20 Micro: Microbiology 02/08/25 03:47 Gram Stain - Final Sputum - Expectorated Sputum 02/07/25 16:38 Blood Culture - Preliminary Blood NEGATIVE TO DATE 02/07/25 16:39 Blood Culture - Preliminary Blood NEGATIVE TO DATE A&P Assessment and plan 1. End stage renal disease on dialysis: 49-year-old female history of ESRD on dialysis Tuesday and Tuesday, DVT, ulcers anemia COVID former drug use migraines history of anal carcinoma in the past. 1. ? pneumonia -, on abx 2. ESRD, HD done yesterday, HD again today for volume overload 3. Hemoglobin 9.1 , will order procrit 4. h/o HTN --> meds on hold Patient was seen and examined as a telehealth visit. Audiovisual equipment was used patient was examined with the aid of a nurse. The patient consented to telehealth and to hemodialysis. Plan: See above decrease medications attempt to remove fluid on dialysis. Antibiotics as per hospitalist PDMP PDMP Reviewed: Not Reviewed Attestations 2 Medical Necessity Statement*: per kobi Coding Level of Care Code Acute Code for Chg Fwd Diagnoses End stage renal disease on dialysis N18.6; Z99.2
[2025-02-09] MEDS: morphine 4 mg/mL SDV 1 mL IVP (06:35)
[2025-02-09] MEDS: levofloxacin-dextrose 5 % 500 MG/100 ML PREMIX 100 MG IV (09:27)
--- NOTE | 2025-02-09 09:54 | PM.DCS ---
Discharge Providers Date of Admission: 02/06/25 16:11 Date of Discharge: February 09, 2025 Attending Provider at Admission: Stephon Velazco MD Attending Provider at Discharge: Sylvia De Paz NP Primary Care Provider: Herber Hussein MD Diagnoses at Discharge Discharge Diagnosis 1. End stage renal disease on dialysis: Reason for Visit Reason for Visit: Shortness of Breath Brief History: Admission: Bharati Anthony is a 49 year old female with pmhx of DVT, DM, ESRD, AMS, MRSA, CHF, tachycardia, chronic foot ulcers, anemia, covid, former illicit drug use, migraines, and anal carcinoma presenting with complaints of shortness of breath. Patient reports that since yesterday she has had shortness of breath that has become progressively worse. Endorses productive yellow cough, dizziness headaches 09/27, and being unstable on her feet. Denies recent flu-like illness or any sick contacts. Today she completed her dialysis but was sent here from that facility secondary to her worsening condition. She was transported to [facility] ED for further assessment. Mother is at bedside. In the ED, BP 130/65, HR 97, T99.3, O2 87% on room air.? WBC 9.6, Hgb 10.70, PLT 156.? pH 7.51, pO2 54.3, HCO3 33.8, pCO2 42.1.? Glucose 174.? AST/ALT WNL. Creatinine 2.5, BUN 16. CXR; Hazy bilateral lower lobe infiltrates. Hospital Course Hospital Course Assessment and plan 1. Acute hypoxemic respiratory failure: - High likelihood of fluid overload on end-stage renal disease requiring further dialysis since the inflammatory markers are not suggestive of pneumonia. - Chest x-ray showed bilateral haziness - Considering and giving the benefit of doubt to keep the patient on antibiotics and meanwhile to follow the infectious workup - Consulted nephrology for further optimization of hemodialysis, extra session yesterday and planned session today - Oxygen supplementation and to wean off accordingly, Oxygen walk test to evaluate for home oxygen - Maintain normal hemodynamics - ECHO LV systolic function is mildly reduced with EF of 45-50%, Mild mitral regurgitation. Mild tricuspid regurgitation. Pleural effusion is seen 2. Pneumonia: - Pneumonia with bilateral hazy infiltrates however could be related to her fluid overload secondary to end-stage renal disease. Since the Pro-Craig is negative - Considering her parameters there is less likely that the patient is having severe pneumonia however the signs and symptoms are more suggestive of fluid overload secondary to end-stage renal disease that is requiring dialysis - De-escalate meropenem to levofloxacin 750 mg initial dose and then to continue 500 mg every 48 hours, transitions to oral x3 days to complete. - Resend blood cultures since the blood cultures samples were canceled and sputum cultures to follow if are negative then to discontinue antibiotics - pending - MRSA swab positive, initiated mupirocin BID x 5 days - Respiratory viral panel - Oxygen supplementation to maintain oxygen sats above 92% - Maintain MAP over 65 3. End stage renal disease on dialysis: - Patient having high proBNP, consulted nephrology - Lasix 60 mg IV given yesterday and continue Bumex 2 mg postdialysis as per home medication - Possible ultrafiltration for removal after fluids - Oxygen supplementation - Follow nephrology plan and recommendation - To continue dialysis as scheduled and later to adjust her hemodialysis sessions according to her weight and fluid status. 4. Diabetes mellitus: - Insulin sliding scale - Patient having end-stage renal disease therefore her HbA1c is controlled and does not need insulin or antidiabetic medications at the time of discharge - For further reconciliation and management of her for diabetes to give referral at the time of discharge to the PCP/tinsmith helper 5. Nicotine dependence: Current everyday cigarette use, ? pack per day Cessation education 6. DVT (deep venous thrombosis): On Eliquis To continue home dose anticoagulation VTE addressed and as per the system/[employer] requirement need to place VTE orders therefore SCD has been placed however it is not required since the patient is already on Eliquis 7. Hypertension: Patient on antihypertensives with carvedilol 25 mg twice daily, amlodipine 10 mg daily, hydralazine 25 3 times daily Meanwhile hold antihypertensive with hypotension Patient receiving dialysis again 02/09/2025 and will have dialysis at her outpatient dialysis tomorrow. Reviewed discharge plans with who states patient can discharge after dialysis today, will need to continue to monitor volume status and continue outpatient management. Patient continues empiric antibiotic coverage for 3 more days. Advise holding blood pressure medication with low blood pressure and reviewed with her primary care provider with a blood pressure log before resuming. Greatly appreciate case management and discharge planning organizing for home oxygen 4L/min at rest. Patient will follow-up with her primary care provider in 1 to 3 days and dialysis tomorrow. All questions and concerns addressed to the patient prior to discharge. Physical Exam Narrative: General: Alert and oriented, lying comfortably able to complete in full sentences, on 5 L/min nasal cannula oxygen supplementation, with mild wet cough HEENT: Normocephalic, atraumatic, grossly unremarkable exam Cardio: normal rate rhythm, normal S1-S2 without any murmurs, rubs, or gallops. Respiratory: Bilateral equal air entry with bilateral basal inspiratory crepitations that does not change with cough, no wheezing or stridor. GI: Abdomen soft, nontender, nondistended, normoactive bowel sounds present all 4 quadrants, Neuro: intact cranial nerves motor and sensory and cerebellar/coordination function without any focal neurological deficit Behavior: Appropriate and cooperative Extremities: Adequate palpable pulses, bilateral mild pedal edema Urinary Catheter Management: Ryder: Cath Placed During This Visit: yes Reason for Continuing Indwelling Catheter: Acute Urinary Retention or Obstruction Urinary Catheter Date of Insertion: 02/07/25 Urinary Catheter Time of Insertion: 11:45 Discharge Data Studies Completed and Pending Completed Studies During Hospitalization Category Date Time Status XR chest 1V portable [id number] Stat Exams 02/06/25 10:20 Completed US echo complete [CV. echo complete* [id number]] Routine Ultrasound 02/07/25 23:44 Completed Pending at discharge Category Date Time Status Blood Culture Stat Lab 02/07/25 16:38 Results Complete Blood Count w/Auto AM LABS Lab 02/10/25 04:00 Ordered Comprehensive Metabolic Panel AM LABS Lab 02/10/25 04:00 Ordered Phosphorus AM LABS Lab 02/10/25 04:00 Ordered Sputum Culture and Gram Stain Stat Lab 02/07/25 20:30 Results Radiology Impressions Chest X-Ray 02/06/25 10:20 IMPRESSION: Hazy bilateral lower lobe infiltrates. Laboratory Results WBC 4.13 10^3/uL (3.29-11.43) 02/09/25 04:20 RBC 2.66 10^6/uL (3.85-5.65) L 02/09/25 04:20 Hgb 9.10 g/dL (11.27-16.99) L 02/09/25 04:20 Hct 29.6 % (36-47) L 02/09/25 04:20 MCV 111.3 fl (85-98) H 02/09/25 04:20 MCH 34.2 pg (27-33) H 02/09/25 04:20 MCHC 30.7 g/dL (30-55) 02/09/25 04:20 RDW 14.9 % (12.1-15.1) 02/09/25 04:20 Plt Count 145 10^3/cmm (157-399) L 02/09/25 04:20 MPV 9.6 fL (7.4-10.4) 02/09/25 04:20 Neut % (Auto) 66.1 % 02/09/25 04:20 Lymph % (Auto) 17.7 % 02/09/25 04:20 [place] % (Auto) 10.7 % 02/09/25 04:20 Eos % (Auto) 4.6 % 02/09/25 04:20 Baso % (Auto) 0.2 % 02/09/25 04:20 Neut # (Auto) 2.73 10^3/uL (1.8-7.7) 02/09/25 04:20 Lymph # (Auto) 0.7 10^3/uL (0.8-4.8) L 02/09/25 04:20 [place] # (Auto) 0.4 10^3/uL (0.2-0.9) 02/09/25 04:20 Eos # (Auto) 0.2 10^3/uL (0.0-0.8) 02/09/25 04:20 Baso # (Auto) 0.0 10^3/uL (0.0-0.1) 02/09/25 04:20 Nucleated RBC % (auto) 0 % 02/09/25 04:20 Nucleated RBCs # 0.0 /100WBC 02/09/25 04:20 PT 13.90 SECONDS (12.1-14.9) 02/06/25 10:27 INR 1.00 (0.8-1.2) 02/06/25 10:27 Specimen Type Venous 02/07/25 04:37 Sample Site Not Reportable 02/07/25 04:37 ABG pH 7.51 (7.35-7.45) H 02/06/25 10:43 ABG pCO2 42.1 mmHg (35-45) 02/06/25 10:43 ABG pO2 54.3 mmHg (80.0-100.0) L 02/06/25 10:43 ABG PO2/FiO2 Ratio 226 02/06/25 10:43 ABG HCO3 33.8 mmol/L (22-26) H 02/06/25 10:43 ABG O2 Saturation 90.3 02/06/25 10:43 ABG Base Excess 9.9 mmol/L (-2.0-2.0) H 02/06/25 10:43 Benjamin Test Pos 02/07/25 04:37 VBG pH 7.43 (7.32-7.42) H 02/07/25 04:37 VBG pCO2 47.6 mmHg (41-51) 02/07/25 04:37 VBG pO2 26.6 mmHg (25-40) 02/07/25 04:37 VBG HCO3 31.5 mmol/L (24-28) H 02/07/25 04:37 VBG Base Excess 6.3 mmol/L (-3.0-3.0) H 02/07/25 04:37 VBG Hematocrit 30.9 % (37-47) L 02/07/25 04:37 A-a O2 Gradient 8.6 mmHg (5-10) 02/06/25 10:43 Hematocrit 30.8 % (37-47) L 02/06/25 10:43 Hgb O2 Saturation 88.1 % (95-100) L 02/06/25 10:43 Carboxyhemoglobin 2.4 %THgb (0.4-20.1) 02/06/25 10:43 Methemoglobin 0.1 % (0.4-1.5) L 02/06/25 10:43 Total Hemoglobin 10.0 g/dL (12-16) L 02/06/25 10:43 Sodium 139.0 mmol/L (131-143) 02/06/25 10:43 Potassium 3.7 mmol/L (3.5-5.0) 02/06/25 10:43 Glucose 174.0 mg/dL (70-115) H 02/06/25 10:43 Ionized Calcium 1.1 mmol/L (1.1-1.4) 02/06/25 10:43 O2 Delivery Device Nc 02/07/25 04:37 O2 Liters/Min 6.0 % 02/07/25 04:37 FiO2 44.0 % 02/07/25 04:37 Living Nurse ID lee 02/07/25 04:37 Sodium 137 mmol/L (136-145) 02/09/25 04:20 Potassium 4.1 mmol/L (3.5-5.1) 02/09/25 04:20 Chloride 98 mmol/L (98-107) 02/09/25 04:20 Carbon Dioxide 28 mmol/L (22-29) 02/09/25 04:20 Anion Gap 15.1 (5-19) 02/09/25 04:20 BUN 35 mg/dL (6-20) H 02/09/25 04:20 Creatinine 4.2 mg/dL (0.5-0.9) H 02/09/25 04:20 GFR Calculation 11.2 mL/min (90-130) L 02/09/25 04:20 Glucose 138 mg/dL (65-115) H 02/09/25 04:20 POC Glucose 151 mg/dL (70-110) H 02/07/25 16:19 Calculated Osmolality 294 mOsm/kg (285-295) 02/09/25 04:20 Lactic Acid 1.4 mmol/L (0.5-2.2) 02/06/25 10:27 Calcium 8.9 mg/dL (8.5-10.5) 02/09/25 04:20 Phosphorus 5.9 mg/dL (2.5-4.5) H 02/09/25 04:20 Magnesium 2.1 mg/dL (1.7-2.3) 02/06/25 10:27 Total Bilirubin 0.4 mg/dL (0.15-1.2) 02/09/25 04:20 AST 15 U/L (0-32) 02/09/25 04:20 ALT 9 U/L (0-33) 02/09/25 04:20 Alkaline Phosphatase 70 U/L (35-105) 02/09/25 04:20 NT-Pro-B Natriuret Pep 04252 pg/mL (0-125) H 02/07/25 04:37 Total Protein 6.2 g/dL (6.6-8.7) L 02/09/25 04:20 Albumin 3.6 g/dL (3.5-5.2) 02/09/25 04:20 Globulin 2.6 g/dL (1.3-4.6) 02/09/25 04:20 Procalcitonin 0.35 ng/mL (0-0.5) 02/06/25 10:27 Urine Color Yellow (Yellow) 02/06/25 13:25 Urine Appearance Clear (CLEAR) 02/06/25 13:25 Urine pH >=9.0 (5-7) A 02/06/25 13:25 Ur Specific [place] 1.013 (1.005-1.030) 02/06/25 13:25 Urine Protein 3+ (Negative) A 02/06/25 13:25 Urine Glucose (UA) 1+ (Normal) H 02/06/25 13:25 Urine Ketones Trace (Negative) 02/06/25 13:25 Urine Blood Negative (Negative) 02/06/25 13:25 Urine Nitrate Negative (Negative) 02/06/25 13:25 Urine Bilirubin Negative (Negative) 02/06/25 13:25 Urine Urobilinogen 0.2 mg/dL (Negative) 02/06/25 13:25 Ur Leukocyte Esterase Negative (Negative) 02/06/25 13:25 Urine RBC 0-2 /hpf (0-2) 02/06/25 13:25 Urine WBC 0-5 /hpf (0-5) 02/06/25 13:25 Ur Squamous Epith Cells 0-5 /hpf (0-5) 02/06/25 13:25 Amorphous Sediment Not Reportable 02/06/25 13:25 Urine Bacteria None seen /hpf (NONE) 02/06/25 13:25 Hyaline Casts 2.05 /lpf 02/06/25 13:25 Nasal MRSA (PCR) Mrsa detected (Not Detecte) A 02/07/25 23: Adenovirus (PCR) Not detected (NOT DETECT) 02/07/25 23: C. pneumoniae DNA (PCR) Not detected (NOT DETECT) 02/07/25 23: Coronavirus 229E (PCR) Not detected (NOT DETECT) 02/07/25 23:25 Hep Bs Antigen Non-reactive (Nonreactive) 02/07/25 04:37 Hep Bs Antibody 694.3 (11.5-1000) 02/07/25 04:37 Hepatitis C Antibody Non-reactive (Nonreactive) 02/07/25 04:37 Human Metapneumovir PCR Not detected (NOT DETECT) 02/07/25 23: Influenza A (H1) PCR Not detected (NOT DETECT) 02/07/25: Influenza A (PCR) Cancelled 02/07/25: Influ A (H1/09) PCR Not detected (NOT DETECT) 02/07/25: Influenza A (H3) PCR Not detected (NOT DETECT) 02/07/25: Influenza Type A (PCR) Not detected (NOT DETECT) 02/07/25: Influenza Type B (PCR) Cancelled 02/07/25: Influenza Type B (PCR) Not detected (NOT DETECT) 02/07/25: M. pneumoniae (PCR) Not detected (NOT DETECT) 02/07/25: Parainfluenza 1 (PCR) Not detected (NOT DETECT) 02/07/25: Parainfluenza 2 (PCR) Not detected (NOT DETECT) 02/07/25: Parainfluenza 3 (PCR) Not detected (NOT DETECT) 02/07/25 23: Parainfluenza 4 (PCR) Not detected (NOT DETECT) 02/07/25 23:25 RSV (PCR) Cancelled 02/07/25: RSV Type A (PCR) Not detected (NOT DETECT) 02/07/25: RSV Type B (PCR) Not detected (NOT DETECT) 02/07/25 23:25 Entero/Rhino (PCR) Detected (NOT DETECT) A 02/07/25: SARS-CoV-2 (PCR) Cancelled 02/07/25: SARS-CoV-2 (PCR) Not detected (NOT DETECT) 02/07/25 23:25 Vitals Last Vital Signs Temp 97.6 F 02/09/25 07:46 Pulse 83 02/09/25 08:12 Resp 18 02/09/25 08:12 BP 110/62 02/09/25 07:46 Pulse Ox 93 02/09/25 08:12 O2 Del Method Oxymask 02/09/25 08:12 O2 Flow Rate 5 02/09/25 08:12 Discharge Plan Discharge Patient Disposition: Home Condition: Stable Prescriptions: New levofloxacin 500 mg tablet 500 mg PO DAILY 3 Days Qty: 3 0RF mupirocin [Centany] 2 % ointment 1 applic topical BID 5 Days Qty: 15 0RF Continued diphenhydramine HCl [Benadryl] 25 mg capsule 25 mg PO TID PRN (Reason: Itching) pantoprazole 40 mg tablet,delayed release (DR/EC) 40 mg PO BID ropinirole 0.25 mg Tablet 0.25 mg PO BEDTIME RenaPlex-D 800 mcg-12.5 mg -2,000 unit Tablet 1 tab PO DAILY scopolamine base 1 mg over 3 days patch 3 day 1 patch topical Q72H PRN (Reason: Nausea) Eliquis 2.5 mg tablet 2.5 mg PO BID citalopram 20 mg tablet 10 mg PO DAILY Qty: 30 0RF melatonin 10 mg Capsule 5 mg PO BEDTIME Qty: 30 0RF carvedilol 25 mg tablet 25 mg PO BID bumetanide 2 mg tablet See Rx Instructions .ROUTE .COMPLEX Rx Instructions: Take 2 mg by mouth daily after dialysis on dialysis days. acetaminophen 500 mg Tablet 500 mg PO QID PRN (Reason: Pain) metoclopramide HCl [Reglan] 5 mg Tablet 5 mg PO TID sodium bicarbonate 650 mg tablet 650 mg PO TID PRN (Reason: Indigestion) promethazine 25 mg Tablet 25 mg PO Q4H PRN (Reason: Nausea) sevelamer carbonate 800 mg tablet 1,600 mg PO TID albuterol sulfate 90 mcg/actuation HFA aerosol inhaler 2 inh inhalation Q6H PRN (Reason: shortness of breath) amlodipine 10 mg tablet 10 mg PO DAILY Held hydralazine 25 mg tablet 25 mg PO TID Hold Instructions: Resume on 02/18/25. Keep blood pressure log and review with primary care provider before resuming Other Ambulatory Orders: DME: Oxygen (Order) Location: None Selected Ordered By: Sylvia De Paz Referrals: Herber Hussein MD [Primary Care Provider, Family Practice] - 1-3 days Referral Note: We have notified your physician's clinic of the need for a follow-up appointment to be scheduled. If you have not heard from them within the next 2 business days, please call them directly. Discharge Diet: Usual diet Discharge Activity: Resume usual activity Patient Instructions: Levofloxacin (By mouth) (Levaquin, Levaquin Leva-gene), Using Oxygen at Home (GEN), Opioid Safety, Patient Portal & Navneet Instructions Discharge Attestations Time Spent in Discharge Care*: greater than 30 min Status at Discharge: Cognitive status at discharge: cognitively intact, Behavioral status at discharge: cooperative, Quality Metrics Clinical Quality Measures [ No reported AMI, CVA or VTE this stay] Coding Level of Care Code 36746 Diagnoses End stage renal disease on dialysis N18.6; Z99.2
[2025-02-09] MEDS: diphenhydrAMINE 50 mg/mL SDV 1mL IVP (15:00)
--- NOTE | 2025-02-09 19:53 | PC.NURSE ---
Patient escorted out of unit via wheelchair in stable condition. Patient had no current IV site, quality assurance monitor final removed, stanley removed. Discharge instructions given by prior shift nurse, paper, belongings, one bottle of home medication, and portable oxygen concentrator with cabin supervisor take by patient. Patient on 5 L via NC. Transport provided by mother.
== END 2025-02-09 19:53 | disposition home or self-care (01) | DRG 291 ==
LOC: ER 12:57 → ER IP 16:12 → MEDSURG 16:28
PROVIDERS: Clinical Nurse Specialist Acute Care; Internal Medicine Nephrology; Student in an Organized Health Care Education/Training Program; Admitting Provider Family Medicine; Emergency Provider Emergency Medicine; PCP Family Medicine; Visit Provider Registered Nurse
DX: I13.2 Hypertensive heart and chronic kidney disease with heart failure and with stage 5 chronic kidney disease, or end stage renal disease (principal); J18.9 Pneumonia, unspecified organism; N18.6 End stage renal disease; J96.01 Acute respiratory failure with hypoxia; E11.22 Type 2 diabetes mellitus with diabetic chronic kidney disease; I50.9 Heart failure, unspecified; E11.43 Type 2 diabetes mellitus with diabetic autonomic (poly)neuropathy; K31.84 Gastroparesis; D63.1 Anemia in chronic kidney disease; E87.70 Fluid overload, unspecified; B95.62 Methicillin resistant Staphylococcus aureus infection as the cause of diseases classified elsewhere; F17.210 Nicotine dependence, cigarettes, uncomplicated; Z66 Do not resuscitate; Z99.2 Dependence on renal dialysis; Z79.01 Long term (current) use of anticoagulants; Z86.718 Personal history of other venous thrombosis and embolism; Z86.14 Personal history of Methicillin resistant Staphylococcus aureus infection; Z86.16 Personal history of COVID-19; Z85.048 Personal history of other malignant neoplasm of rectum, rectosigmoid junction, and anus
CPT/HCPCS: 36415; 36416; 36600; 51702; 71045; 80048; 80051; 80053; 81001; 82330; 82803; 82805; 82962; 83605; 83735; 83880; 84100; 84145; 85025; 85610; 86706; 86803; 87040; 87070; 87205; 87340; 87486; 87581; 87633; 87637; 90935; 93005; 93306; 94640; 94760; 96365; 96375; 99285; J1200; J1938; J1956; J2020; J2185; J2270; J7040; J7613; J9999; P9047; Q3014

== ENCOUNTER 2025-03-01 07:36 | Emergency (ER) | payer MEDICARE, MEDICAID, SELFPAY ==
[2025-03-01 07:36] VITALS: BP 139/75; PULSE 97; RESP 16; TEMP 36.7; O2SAT 96; BMI 24.4
--- NOTE | 2025-03-01 07:45 | W.ED.NECK ---
HPI - Neck Pain/Injury General: Chief Complaint: Neck Pain/Injury Stated Complaint: neck pain during dialysis Time Seen by Provider: 03/01/25 07:40 History of Present Illness: 49-year-old female with a history of end-stage renal disease on dialysis, DVT, chronic anticoagulation on Eliquis, diabetes, CHF, who presents emergency room with neck pain from dialysis by ambulance. She said about a week ago she woke up with a crick in my neck . Said pain has gotten progressively worse and was much worse during dialysis so they called an ambulance and sent her to the emergency room. She appears in no distress when she arrives here. No fevers. No nuchal rigidity. She says pain is worse with movement. No saddle numbness, no fecal or urinary retention or incontinence, no focal motor deficit, no sensory deficit. Related Data Home Medications ?Medication ?Instructions ?Recorded ?Confirmed pantoprazole 40 mg tablet,delayed 40 mg PO BID 06/19/19 02/06/25 release diphenhydramine HCl 25 mg capsule 25 mg PO TID PRN Itching 04/01/20 02/06/25 (Benadryl) ropinirole 0.25 mg tablet 0.25 mg PO BEDTIME 01/21/23 02/06/25 vit B,C-folic ac 800 mcg-zinc 12.5 1 tab PO DAILY 01/21/23 02/06/25 mg-selen-D3 2,000 unit-vit E tablet (RenaPlex-D) amlodipine 10 mg tablet 10 mg PO DAILY 03/22/24 02/06/25 apixaban 2.5 mg tablet (Eliquis) 2.5 mg PO BID 11/26/24 02/06/25 scopolamine base 1 mg over 3 days 1 patch topical Q72H PRN Nausea 11/26/24 02/06/25 transdermal patch acetaminophen 500 mg tablet 500 mg PO QID PRN Pain 02/06/25 02/06/25 albuterol sulfate 90 mcg/actuation 2 inh inhalation Q6H PRN shortness 02/06/25 02/06/25 aerosol inhaler of breath bumetanide 2 mg tablet See Rx Instructions .Route .COMPLEX 02/06/25 02/06/25 carvedilol 25 mg tablet 25 mg PO BID 02/06/25 02/06/25 hydralazine 25 mg tablet 25 mg PO TID 02/06/25 02/06/25 Held on 02/09/25. Instructions: Resume on 02/18/25. Keep blood pressure log and review with primary care provider before resuming metoclopramide HCl 5 mg tablet 5 mg PO TID 02/06/25 02/06/25 (Reglan) promethazine 25 mg tablet 25 mg PO Q4H PRN Nausea 02/06/25 02/06/25 sevelamer carbonate 800 mg tablet 1,600 mg PO TID 02/06/25 02/06/25 sodium bicarbonate 650 mg tablet 650 mg PO TID PRN Indigestion 02/06/25 02/06/25 Previous Rx's ?Medication ?Instructions ?Recorded citalopram 20 mg tablet 10 mg (1/2 x 20 mg) PO DAILY #30 11/27/24 tabs melatonin 10 mg capsule 5 mg (1/2 x 10 mg) PO BEDTIME #30 11/27/24 caps cyclobenzaprine 10 mg tablet 10 mg PO Q8H PRN muscle spasm #20 03/01/25 tabs dexamethasone 6 mg tablet 6 mg PO DAILY 5 days #5 tabs 03/01/25 hydrocodone 5 mg-acetaminophen 325 1 tab PO Q6H PRN pain #20 tabs 03/01/25 mg tablet Allergies Allergy/AdvReac Type Severity Reaction Status Date / Time sulfamethoxazole (From Allergy Severe ALGY-Rash Verified 09/18/24 10:58 Sulfamethoxazole-Trimethoprim) trimethoprim (From Allergy Severe ALGY-Rash Verified 09/18/24 10:58 Sulfamethoxazole-Trimethoprim) adhesive tape Allergy Unknown blisters Verified 09/18/24 10:58 Cephalosporins Allergy Unknown unknown Verified 09/18/24 10:58 doxycycline Allergy ADR-Vomitin Verified 09/18/24 10:58 g latex Allergy blisters Verified 09/18/24 10:58 Sulfa (Sulfonamide Allergy Unknown Verified 10/16/24 07:58 Antibiotics) Review of Systems Narrative: Constitutional symptoms: Negative except as documented in HPI. Skin symptoms: Negative except as documented in HPI. Eye symptoms: Negative except as documented in HPI. ENMT symptoms: Negative except as documented in HPI. Respiratory symptoms: Negative except as documented in HPI. Cardiovascular symptoms: Negative except as documented in HPI. Gastrointestinal symptoms: Negative except as documented in HPI. Genitourinary symptoms: Negative except as documented in HPI. Musculoskeletal symptoms: Negative except as documented in HPI. Neurologic symptoms: Negative except as documented in HPI. Psychiatric symptoms: Negative except as documented in HPI. Endocrine symptoms: Negative except as documented in HPI. PFSH ED PFSH: Medical History (Updated 03/01/25 @ 08:03 by Mónica Long MD) Tachycardia Diabetes Deep vein thrombosis (DVT) during Chronic anticoagulation Squamous cell carcinoma of anal canal Diabetes mellitus End-stage renal disease Surgical History Status post surgery (05/19/20) Removal of peritoneal dialysis catheter Port-A-Cath in place S/P hemodialysis catheter insertion (01/09/20) Removed 11/18/2020 Peritoneal dialysis status H/O colonoscopy H/O hand surgery History of hip surgery History of hysterectomy Family History Other Cancer Diabetes Denies family history of Anesthesia complication Bleeding disorder Social History Smoking and tobacco/nicotine status: current every day tobacco/nicotine user cigarettes Packs smoked per day: 0.25 Alcohol intake: never Substance/Drug Use: former Date of last use: Greater than 8 years ago as of 11/26/2024 Former substance use details: Marijuana and then switched to methamphetamines but stopped greater than 8 Additional social history: CODE STATUS discussed and patient wants DNR on 11/26/2024 with Brian Philippe MD Household members: family Marital status: Single Current occupational status: disabled Physical Exam Narrative: EXAM NARRATIVE: General: Alert, no acute distress. Skin: warm and dry Head: Normocephalic Neck: Trachea midline Eye: Extraocular movements are intact. Ears, nose, mouth and throat: Oral mucosa moist Respiratory: Respirations are non-labored Musculoskeletal: Normal ROM Gastrointestinal: Abdomen does not appear distended Neurological: Alert and oriented, No focal neurological deficit observed. Psychiatric: Cooperative, appropriate mood & affect. Course Vital Signs: Vital signs: Vital Signs Temperature 98.1 F 03/01/25 07:36 Pulse Rate 97 03/01/25 07:36 Respiratory Rate 16 03/01/25 07:36 Blood Pressure 139/75 03/01/25 07:36 Pulse Oximetry 96 03/01/25 07:36 Oxygen Delivery Me thod Room Air 03/01/25 07:36 MDM - Neck Pain/Injury Medical Decision Making Medical decision making Patient's reason for coming to the emergency room: Neck pain Social determinants: Patient is disabled I reviewed the patient's medical record. 49-year-old female with a history of end-stage renal disease on dialysis, DVT, chronic anticoagulation on Eliquis, diabetes, CHF I reviewed the patient's current home meds Patient is anticoagulated on Eliquis Alternate historians: None Differential diagnosis: including but not limited to and based on the above HPI, review of systems and physical exam: Patient appears to have musculoskeletal neck pain. Pain with movement. No neurologic deficits. No trauma. No lab work or imaging indicated today. Assessment and plan: Neck pain ?Home on pain medication, steroid and muscle relaxer - Discharged home - Discussed plan with patient. Answered any questions. - Evaluation and treatment of this problem were appropriate in the emergency setting. No radiology studies performed this visit Discharge Plan Discharge Patient Disposition: Home Clinical Impression: Neck pain Condition: Stable Prescriptions: New cyclobenzaprine 10 mg tablet 10 mg PO Q8H PRN (Reason: muscle spasm) Qty: 20 0RF hydrocodone-acetaminophen 5-325 mg tablet 1 tab PO Q6H PRN (Reason: pain) Qty: 20 0RF dexamethasone 6 mg tablet 6 mg PO DAILY 5 Days Qty: 5 0RF No Action diphenhydramine HCl [Benadryl] 25 mg capsule 25 mg PO TID PRN (Reason: Itching) pantoprazole 40 mg tablet,delayed release (DR/EC) 40 mg PO BID ropinirole 0.25 mg Tablet 0.25 mg PO BEDTIME RenaPlex-D 800 mcg-12.5 mg -2,000 unit Tablet 1 tab PO DAILY scopolamine base 1 mg over 3 days patch 3 day 1 patch topical Q72H PRN (Reason: Nausea) Eliquis 2.5 mg tablet 2.5 mg PO BID citalopram 20 mg tablet 10 mg PO DAILY Qty: 30 0RF melatonin 10 mg Capsule 5 mg PO BEDTIME Qty: 30 0RF carvedilol 25 mg tablet 25 mg PO BID bumetanide 2 mg tablet See Rx Instructions .ROUTE .COMPLEX Rx Instructions: Take 2 mg by mouth daily after dialysis on dialysis days. hydralazine 25 mg tablet 25 mg PO TID acetaminophen 500 mg Tablet 500 mg PO QID PRN (Reason: Pain) metoclopramide HCl [Reglan] 5 mg Tablet 5 mg PO TID sodium bicarbonate 650 mg tablet 650 mg PO TID PRN (Reason: Indigestion) promethazine 25 mg Tablet 25 mg PO Q4H PRN (Reason: Nausea) sevelamer carbonate 800 mg tablet 1,600 mg PO TID albuterol sulfate 90 mcg/actuation HFA aerosol inhaler 2 inh inhalation Q6H PRN (Reason: shortness of breath) amlodipine 10 mg tablet 10 mg PO DAILY Discharge Orders: Discharge ED (Routine); Ordered 03/01/25 Ordered By: Mónica Long Referrals: Herber Hussein MD [Primary Care Provider, Family Practice] Discharge Diet: As Directed Discharge Activity: Increase activity as tolerated Patient Instructions: Opioid Safety, Pain Management, Patient Portal & Navneet Instructions Activity Restrictions/Additional Instructions: Thank you for choosing [facility] for your healthcare needs today. You have been screened and evaluated and felt safe for discharge. Health conditions do change or evolve sometimes and as such it is important that you follow up with your Primary Doctor to be re checked, 3-5 days is a general good time frame for follow up. You are always welcome to return to the ED for re assessment if your symptoms are worsening or you have new concerns Print Language: Polish Coding Level of Care Code ED Park Re[employer] Manager for [facility]itch
[2025-03-01 08:18] VITALS: BP 142/74; PULSE 89; O2SAT 95
== END 2025-03-01 08:22 | disposition home or self-care (01) ==
PROVIDERS: Emergency Provider Emergency Medicine; PCP Family Medicine
DX: M54.2 Cervicalgia (principal); Z79.01 Long term (current) use of anticoagulants; F17.210 Nicotine dependence, cigarettes, uncomplicated; E11.22 Type 2 diabetes mellitus with diabetic chronic kidney disease; N18.6 End stage renal disease; Z99.2 Dependence on renal dialysis; Z85.048 Personal history of other malignant neoplasm of rectum, rectosigmoid junction, and anus
CPT/HCPCS: 99283